=== PATIENT | male | born 1940 | race Caucasian/White ===

== ENCOUNTER 2017-06-13 19:49 | Inpatient (IN) | payer MEDICARE, SELFPAY ==
[2017-06-13 19:52] VITALS: BP 129/58; PULSE 94; PULSE 97; RESP 22; TEMP 36.8; O2SAT 88; BMI 33.7
--- NOTE | 2017-06-13 20:29 | EKG12_ITS ---
Test Reason : SOB Blood Pressure : / mmHG Vent. Rate : 092 BPM Atrial Rate : 094 BPM P-R Int : 000 ms QRS Dur : 108 ms QT Int : 384 ms P-R-T Axes : -11 -15 069 degrees QTc Int : 474 ms Atrial fibrillation Left ventricular hypertrophy with repolarization abnormality Abnormal ECG Confirmed by MIGUEL CEDENO, HILARY ([id number]), city editor CHEPE MEADE ([id number]) on 06/15/2017 1:18:55 PM Referred By: NADJA Confirmed By:HILARY RIVERA MD
--- NOTE | 2017-06-13 20:29 | RAD_ITS ---
STUDY: X-RAY CHEST REASON FOR EXAM: Male, 77 years old. Shortness of breath TECHNIQUE: Frontal and lateral views of the chest COMPARISON: 05/29/2017. FINDINGS: There are stable small bilateral pleural effusions, right greater than left. There are stable mild congestive changes. The heart is enlarged, but stable. The visualized osseous structures are within normal limits. RAD/Chest PA and Lateral IMPRESSION: Stable exam. Electronically Signed: Suraj Ross, at 22:00 EST Tel , Service support ,
[2017-06-13 20:52] VITALS: O2SAT 93
[2017-06-13 20:53] LABS: Absolute Lymphocyte Count 1.43 X10^3/ul (0.83-4.51); Absolute Neutrophil Count 2.9 X10^3/uL (2.0-7.7); Eosinophil# 0.01 X10^3/uL; Eosinophils% 0.2 % (0-5); Hematocrit 33.8 % (40-54); Hemoglobin 10.9 g/dl (13.0-16.5); Lymphocyte # 1.43 X10^3/ul (4.0); Mean Corp Hgb Conc 32.2 g/gl (32-36); Mean Corpuscular Hgb 35.3 pg (27.0-32.0); Mean Corpuscular Volume 109.4 fL (80-94); Mean Platelet Vol. 11.5 fl (6.2-12.0); Monocyte% 22.8 % (0-10); Neutrophil % 50.8 % (47-70); Platelet Count 160 K/mm3 (150-450); RBC Distribution Width CV 15.4 % (11.6-14.6); RBC Distribution Width SD 60.1 fl (35.1-43.9); Red Blood Count 3.09 M/mm3 (4.6-6.2); White Blood Count 5.7 K/mm3 (4.4-11.0)
[2017-06-13 20:55] LABS: POSITIVE COUNT NO; POSITIVE DIFFERENTIAL NO; POSITIVE MORPHOLOGY NO
[2017-06-13 21:18] VITALS: BP 132/70; PULSE 80; RESP 16; O2SAT 94
[2017-06-13 21:26] LABS: BNP,B-Type NATRIURETIC PEPTIDE 1596.5 pg/mL (0-100)
[2017-06-13 21:42] LABS: Anion Gap 12 (5-15); BUN 34 mg/dL (7-18); BUN/Creat Ratio 17.4 RATIO (10-20); Calcium,Total 8.6 mg/dL (8.5-10.1); Chloride 98 mmol/L (98-107); Creatinine, Serum 1.95 mg/dL (0.70-1.30); EST Glomerular Filtration Rate 36 mL/min (>60); Est Glom Filt Rate - Afr Amer 43 mL/min (>60); Estimated Creatinine Clearance 27.41 ml/min; Glucose 779 mg/dL (70-110); Potassium 4.4 mmol/L (3.5-5.1); Sodium Level 134 mmol/L (136-145)
--- NOTE | 2017-06-13 21:42 | ED.RN ---
dr varner aware of 779 blood glucose.
--- NOTE | 2017-06-13 21:55 | EKG12_ITS ---
Test Reason : SOB Blood Pressure : / mmHG Vent. Rate : 090 BPM Atrial Rate : 090 BPM P-R Int : 268 ms QRS Dur : 112 ms QT Int : 390 ms P-R-T Axes : 024 -15 074 degrees QTc Int : 477 ms Sinus rhythm with 1st degree A-V block Otherwise normal ECG Confirmed by MIGUEL CEDENO, HILARY ([id number]), senior editor CHEPE MEADE ([id number]) on 06/15/2017 1:19:12 PM Referred By: Confirmed By:HILARY RIVERA MD
[2017-06-13 22:13] VITALS: BP 139/75; PULSE 75; RESP 14; O2SAT 99
--- NOTE | 2017-06-13 22:20 | ED.VISSUMM ---
- ER Visit Summary Date of Service: 06/13/17 Chief Complaint: Shortness of breath History of Present Illness: The patient is a 77 M who presents with shortness of breath. It is worsened over the past 4 days. He does have a history of aortic stenosis and is actually scheduled for valvular surgery on June [address] Ramirez at [facility]. He states he did not think his Lasix was working so he quit taking it 4 days ago and noticed that he has been becoming increasingly short of breath since that time. He denies any chest pain. He does have a nonproductive cough. He denies vomiting diarrhea fevers or any other complaints. Physical Examination: Respiratory rate 22 pulse ox 88% on room air Patient is dyspneic speaking in short sentences bibasilar rales are noted. Heart is regular rate and rhythm Abdomen soft 1+ symmetric pitting lower extremity edema Alert and oriented Test Results: EKG shows sinus rhythm at a rate of 92. Chest x-ray shows stable bilateral pleural effusions. Laboratory studies notable for troponin of 0.151 which is near recent labs. Beta natruretic peptide 1596. Additionally glucose is 779 but without elevated anion gap. Emergency Department Course and Treatment: Patient was placed on oxygen with improvement of symptoms. He does appear to have a congestive heart failure exacerbation. He was given IV Lasix. Given the degree of his hyperglycemia and the fact I would not want to give him any further IV fluids for dilution he was started on an insulin infusion. Patient admitted to the hospitalist service Treatment Plan: [] Disposition: Admit Impression: CHF exacerbation Aortic stenosis Hyperglycemia This note was generated with Skytide dictation software. It may contain incorrect words, spelling, and punctuation that were not noted in review of the chart prior to signing ED Disposition - Plan for ED Patient: Disposition: Acute Care Hospital [facility] Chief Complaint: Shortness of Breath
--- NOTE | 2017-06-13 22:25 | ED.DCSUM_ITS ---
- ER Visit Summary Date of Service: 06/13/17 Chief Complaint: Shortness of breath History of Present Illness: The patient is a 77 M who presents with shortness of breath. It is worsened over the past 4 days. He does have a history of aortic stenosis and is actually scheduled for valvular surgery on June [address] Ramirez at [facility]. He states he did not think his Lasix was working so he quit taking it 4 days ago and noticed that he has been becoming increasingly short of breath since that time. He denies any chest pain. He does have a nonproductive cough. He denies vomiting diarrhea fevers or any other complaints. Physical Examination: Respiratory rate 22 pulse ox 88% on room air Patient is dyspneic speaking in short sentences bibasilar rales are noted. Heart is regular rate and rhythm Abdomen soft 1+ symmetric pitting lower extremity edema Alert and oriented Test Results: EKG shows sinus rhythm at a rate of 92. Chest x-ray shows stable bilateral pleural effusions. Laboratory studies notable for troponin of 0.151 which is near recent labs. Beta natruretic peptide 1596. Additionally glucose is 779 but without elevated anion gap. Emergency Department Course and Treatment: Patient was placed on oxygen with improvement of symptoms. He does appear to have a congestive heart failure exacerbation. He was given IV Lasix. Given the degree of his hyperglycemia and the fact I would not want to give him any further IV fluids for dilution he was started on an insulin infusion. Patient admitted to the hospitalist service Treatment Plan: [] Disposition: Admit Impression: CHF exacerbation Aortic stenosis Hyperglycemia This note was generated with RapidMiner dictation software. It may contain incorrect words, spelling, and punctuation that were not noted in review of the chart prior to signing ED Disposition - Plan for ED Patient: Disposition: Acute Care Hospital [facility] Chief Complaint: Shortness of Breath
[2017-06-13] MEDS: Furosemide 40 MG/4 ML Vial IV (22:34)
--- NOTE | 2017-06-13 22:46 | ED.RN ---
PCU ACUTE ON CHR HEART FAILURE W/ SEVERE LINO
--- NOTE | 2017-06-13 22:50 | HP.PCM_ITS ---
Problem List (1) Nonrheumatic aortic valve stenosis with insufficiency Status: Chronic (2) Hypertension Status: Chronic (3) Dyspnea on exertion Status: Chronic (4) Troponin level elevated Status: Resolved (5) Allergic rhinitis Status: Resolved (6) Acute on chronic combined systolic and diastolic heart failure Status: Acute (7) Type 2 diabetes mellitus with hyperglycemia Status: Chronic (8) CKD stage 3 due to type 2 diabetes mellitus Status: Chronic (9) Acute renal failure superimposed on stage 3 chronic kidney disease Status: Acute History of Present Illness Date of Admission: 06/13/17 Chief Complaint: Shortness of breath for 4-5 days The patient is a 77 year old M with multiple comorbidities with recent admission in May 2017 for acute on chronic heart failure with severe aortic stenosis, it is scheduled for valvular surgery on June [address] Young at [facility] came to ER with progressive worsening of shortness of breath or 4 -5 days. Patient has bilateral lower extremity edema. He quit taking his Lasix about 4 days ago as he thought it is not working. Denies any chest pain. No fever, nausea vomiting. In ER he was found to have tachypneic respiratory rate 22, pulse ox 88% on room air. Lasix 40 mg IV was given but it did not improve. Later on he got more tachypneic and short of breath and put on BiPAP. Subsequently, ABG was done which shows 7.34/40 7/108 at 50% FiO2 16/10. Chest x-ray shows bilateral pleural effusion, right more than left with mild congestive changes. One more dose of Lasix 40 mg IV ordered. Past Medical History Past Medical History (Chronic Problems): Chronic Problems (Last Reviewed 05/17/17 @ 15:28 by Trice Bowling) Type 2 diabetes mellitus with hyperglycemia (Chronic) 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) Cardiomyopathy in disease classified elsewhere (Chronic) Hypertension (Chronic) Dyspnea on exertion (Chronic) Allergies No Known Allergies Allergy (Verified 06/13/17 19:49) Home Medications: Ambulatory Orders Medication Instructions Recorded Metoprolol Tartrate [Lopressor 50 mg PO BID 07/02/14 (beta poornima)] Multivitamins,Therapeutic 1 tab PO DAILY 07/02/14 [Multivitamin] Aspirin [Aspirin, Baby] 81 mg PO DAILY@0800 tab.chew 05/06/17 amlodipine 2.5 mg tablet 5 mg PO BID tab 05/24/17 handicap nain #1 ea 06/01/17 Furosemide 40 mg PO DAILY 06/13/17 Surgical History: adenoidectomy, cholecystectomy, tonsillectomy Psychiatric History: No pertinent psych hx Smoking Status: Former smoker - *Family History Maternal Family History: Family History (Last Reviewed 05/17/17 @ 15:28 by Trice Bowling) Mother Hypertension History Items: Hypertension Paternal Family History: Family History (Last Reviewed 05/17/17 @ 15:28 by Trice Bowling) Mother Hypertension History Items: Hypertension Review of Systems Constitutional: Denies: Chills, Fever, Weight Change HEENT: Denies: Head Aches, Sinus Congestion, Sinus Drainage Cardiovascular: Reports: Edema. Denies: Chest Pain, Palpitations Respiratory: Reports: Shortness of breath at rest, Shortness of breath upon exertion. Denies: Cough, Sputum production Gastrointestinal: Denies: Abdominal Pain, Nausea, Vomiting Genitourinary: Denies: Dysuria Musculoskeletal: Denies: Joint Pain, Joint Tenderness Skin: Denies: Rash, Wounds Neurological: Denies: Numbness, Tingling, Focal weakness Psychiatric: Denies: Anxiety, Depression, Homicidal Ideations, Suicidal Ideations Hematologic/ Lymphatic: Denies: Easy Bruising, Easy Bleeding VTE Information - Inpt Only VTE Present on Admission: No VTE Mechan Device Prophylaxis: SCD's VTE Pharm Prophylaxis ordered?: Yes Patient Problems: Active and Suspected Problems (Last Reviewed 05/17/17 @ 15:28 by Trice Bowling) Acute on chronic combined systolic and diastolic heart failure (Acute) Acute renal failure superimposed on stage 3 chronic kidney disease (Acute) - Physical Exam General: Alert, Oriented x3, Cooperative HEENT: Atraumatic, PERRLA, EOMI, Normocephalic Oral: Dry Mucosa Neck: Supple, No JVD, Negative Carotid Bruits Lungs: Diminished - In both lung, right more than left, Rales, Rhonchi, Tachypneic, Using Accessory Muscles, - - On BiPAP at 50% FiO2 Cardiovascular: Regular rate, No murmurs Abdomen: Bowel Sounds Present, Soft, Non Tender, - - Mild distention present Extremities: Capillary Refill Less than 3 Seconds, Edema Skin: No rashes, No breakdown Musculoskeletal: No Tenderness to Palpation of Joints or Extremities, Arthritic Changes Neurological: Cranial nerves II-XII grossly intact Psych/Mental Status: Normal Affect, Appropriate Vital Signs Temp Pulse Resp BP Pulse Ox 98.2 F 75 14 139/75 H 99 06/13/17 19:52 06/13/17 22:13 06/13/17 22:13 06/13/17 22:13 06/13/17 22:13 Oxygen Flow Rate 3 Oxygen Delivery Method Room Air Weight: 196 lb 10.437 oz Body Mass Index (BMI) 33.7 Laboratory Tests Past 24 Hrs 06/13/17 06/13/17 06/13/17 20:40 20:40 20:40 WBC 5.7 RBC 3.09 L Hgb 10.9 L Hct 33.8 L MCV 109.4 H MCH 35.3 H MCHC 32.2 RDW 15.4 H RDW Differential 60.1 H Plt Count 160 MPV 11.5 Immature Gran % (Auto) 1.200 H Neut % (Auto) 50.8 Lymph % (Auto) 25.0 [place] % (Auto) 22.8 H Eos % (Auto) 0.2 Baso % (Auto) 0.0 Absolute Neuts (auto) 2.9 Absolute Lymphs (auto) 1.43 Total Counted Not Reportable Sodium 134 L Potassium 4.4 Chloride 98 Carbon Dioxide 24.0 Anion Gap 12 BUN 34 H Creatinine 1.95 H Estim Creat Clear Calc 27.41 Est GFR (MDRD) Af Amer 43 L Est GFR (MDRD) Non-Af 36 L BUN/Creatinine Ratio 17.4 Glucose 779 H* Calcium 8.6 Troponin I 0.151 H B-Natriuretic Peptide 1596.5 H Assessment/Plan Active and Suspected Problems (Last Reviewed 05/17/17 @ 15:28 by Trice Bowling) Acute on chronic combined systolic and diastolic heart failure (Acute) Acute renal failure superimposed on stage 3 chronic kidney disease (Acute) The patient is a 77 year old M with multiple comorbidities with recent admission in May 2017 for acute on chronic heart failure with severe aortic stenosis, it is scheduled for valvular surgery on June [address] Young at [facility] came to ER with progressive worsening of shortness of breath or 4 -5 days. Patient has bilateral lower extremity edema. He quit taking his Lasix about 4 days ago as he thought it is not working. Denies any chest pain. No fever, nausea vomiting. In ER he was found to have tachypneic respiratory rate 22, pulse ox 88% on room air. Lasix 40 mg IV was given but it did not improve. Later on he got more tachypneic and short of breath and put on BiPAP. Subsequently, ABG was done which shows 7.34/47/108 at 50% FiO2 16/10. Chest x-ray shows bilateral pleural effusion, right more than left with mild congestive changes. One more dose of Lasix 40 mg IV ordered. 1. Acute hypoxic respiratory failure acute on chronic combined systolic and diastolic heart failure: Patient is being admitted in the ICU for acute hypoxic respiratory failure secondary to heart failure. Patient is on Lasix 40 mg twice daily and if needed can change to Lasix low-dose 5 mg/h continuous infusion. Continue BiPAP support. Bronchodilator as needed for shortness of breath. 2. Acute on chronic combined heart failure due to severe aortic stenosis: During last admission from 05/02/2017 -05/06/2017, patient had 2D echo which showed EF 45-50% with a stage II diastolic dysfunction, moderate global hypokinesis of the left ventricle, 1+ MVI, RVSP unable to be measured, severe diffuse aortic valve thickening, severe restriction of the aortic valve, severe aortic stenosis. At that time patient was seen by Dr. Higgins and was referred for cardiac surgery for which she has appointment as mentioned above. Patient also had negative stress test which was followed by negative heart cath. EEG demonstrated severe aortic stenosis. Consult cardiology. 3. Diabetes mellitus type 2 with hypoglycemia: In ER blood sugar noted to be 566 And he started on insulin drip. Monitor Accu-Chek q. hourly until his blood sugar is less than 300 and then continue Accu-Chek before meals and at bedtime and cover with NovoLog sliding scale. Lantus 15 units subcu twice daily for discontinuation of insulin drip. he is not in DKA. Bicarb 24, anion gap 12. 4. Acute kidney injury on CKD stage III: Most probably due to the diuretic effect with history of diabetes, hypertension and heart failure. At present he needs Lasix. Nephrology consult. Monitor intake/output, electrolytes and kidney function. Other chronic comorbidities include hypertension, mild microcytic anemia of chronic disease: Home medication reconciliation done. Time spent more than 70 minutes. Laboratory Results 06/13/17 20:40: WBC 5.7, RBC 3.09 L, Hgb 10.9 L, Hct 33.8 L, MCV 109.4 H, MCH 35.3 H, MCHC 32.2, RDW 15.4 H, RDW Differential 60.1 H, Plt Count 160, MPV 11.5 , Immature Gran % (Auto) 1.200 H, Neut % (Auto) 50.8, Lymph % (Auto) 25.0, [place] % (Auto) 22.8 H, Eos % (Auto) 0.2, Baso % (Auto) 0.0, Absolute Neuts (auto) 2.9 , Absolute Lymphs (auto) 1.43, Total Counted Not Reportable 06/13/17 20:40: Sodium 134 L, Potassium 4.4, Chloride 98, Carbon Dioxide 24.0, Anion Gap 12, BUN 34 H, Creatinine 1.95 H, Estim Creat Clear Calc 27.41, Est GFR (MDRD) Af Amer 43 L, Est GFR (MDRD) Non-Af 36 L, BUN/Creatinine Ratio 17.4, Glucose 779 H*, Calcium 8.6, Troponin I 0.151 H 06/13/17 20:40: B-Natriuretic Peptide 1596.5 H 06/13/17 23:25: POC Glucose > 500 H* 06/13/17 23:48: Sodium 137, Potassium 3.8, Chloride 100, Carbon Dioxide 25.0, Anion Gap 12, BUN 35 H, Creatinine 2.08 H, Estim Creat Clear Calc 25.69, Est GFR (MDRD) Af Amer 40 L, Est GFR (MDRD) Non-Af 33 L, BUN/Creatinine Ratio 16.8, Glucose 566 H*, Calcium 8.9, Troponin I 0.179 H 06/13/17 23:49: Specimen Type ART, Sample Site R Radial, pH 7.34 L, Bicarbonate Actual 25.5, POC Total CO2 27, Base Excess 0, O2 Saturation 98, O2 % 50, ABG pCO2 47.4 H, ABG pO2 108 H, Jefe Test POS, Respiration Rate 12, O2 Delivery Device Bi / C PAP, EPAP 10, IPAP 16, Blood Gas Notified Whom ED , Blood Gas Notified Time 2343 Clinical Impression(s) from Imaging Studies Chest X-Ray 06/13/17 20:29 IMPRESSION: Stable exam. Electronically Signed: Suraj Ross, at 22:00 EST Tel , Service support , Chest X-Ray 06/13/17 23:33 IMPRESSION: Stable cardiomegaly. Worsening of right hilar prominence, possibly vascular. Consider further evaluation with CT. Pulmonary vascular congestion and small pleural effusions at the lung bases with adjacent atelectasis/consolidation, superimposed pneumonia cannot be excluded.
[2017-06-13 23:30] VITALS: PULSE 101; RESP 12; RESP 38; O2SAT 98
--- NOTE | 2017-06-13 23:30 | ED.RN ---
PT BECAME SOB AND DIAPHORETIC PRIOR TO TRANSPORT TO PCU. DR. SAEZ TO BEDSIDE. PT PLACED ON BIPAP PER RT.
[2017-06-13 23:31] LABS: Bedside Glucose > 500 mg/dL (70-110)
--- NOTE | 2017-06-13 23:33 | RAD_ITS ---
XR Chest 1 View INDICATION: dyspnea COMPARISON: Earlier the same day and multiple prior studies dating back to June 2015 TECHNIQUE: Frontal view of the chest FINDINGS: The heart size is markedly enlarged. The right hilar region is prominent, which is new compared to May 2017. This finding is likely vascular. Patchy air space opacities are present bilaterally. Small bilateral pleural effusions are present. RAD/Chest 1 View (Portable) IMPRESSION: Stable cardiomegaly. Worsening of right hilar prominence, possibly vascular. Consider further evaluation with CT. Pulmonary vascular congestion and small pleural effusions at the lung bases with adjacent atelectasis/consolidation, superimposed pneumonia cannot be excluded. at 0019 Reported and signed by: Roshni Franco MD Electronically Signed: Roshni Franco MD at 23:18 EST Tel , Service support ,
--- NOTE | 2017-06-13 23:33 | EKG12_ITS ---
Test Reason : CP Blood Pressure : / mmHG Vent. Rate : 104 BPM Atrial Rate : 104 BPM P-R Int : 238 ms QRS Dur : 104 ms QT Int : 354 ms P-R-T Axes : -24 -16 092 degrees QTc Int : 465 ms Sinus tachycardia with 1st degree A-V block with Premature ventricular complexes or Fusion complexes ST & T wave abnormality, consider lateral ischemia Abnormal ECG Confirmed by MIGUEL CEDENO, HILARY ([id number]), newspaper managing editor CHEPE MEADE ([id number]) on 06/15/2017 1:19:23 PM Referred By: NADJA Confirmed By:HILARY RIVERA MD
[2017-06-13 23:56] LABS: Allen Test POS; Base Excess 0 mmol/L (-2 to +2); Bicarbonate 25.5 mmol/L (22-26); Blood Gas Specimen Type ART; EPAP 10; FI02 50; IPAP 16; PO2 108 mmHG (75-100); RR 12; SITE R Radial; SO2 98 % (95-99); Time Given 2345; Total Carbon Dioxide 27 mmol/L; pCO2 47.4 mmHg (35-45); pH 7.34 (7.35-7.45)
[2017-06-14] VITALS (42 sets, daily range): BP systolic 98–138; BP diastolic 58–88; PULSE 76–107; RESP 12–35; TEMP 36.1–36.9; O2SAT 94–100; BMI 32.8
--- NOTE | 2017-06-14 | ED.RN ---
BREATHING IMPROVED AFTER BIPAP.
[2017-06-14] MEDS: Furosemide 40 MG/4 ML Vial IV ×4 (00:05→23:19)
[2017-06-14 00:18] LABS: Anion Gap 12 (5-15); BUN 35 mg/dL (7-18); BUN/Creat Ratio 16.8 RATIO (10-20); Calcium,Total 8.9 mg/dL (8.5-10.1); Chloride 100 mmol/L (98-107); Creatinine, Serum 2.08 mg/dL (0.70-1.30); EST Glomerular Filtration Rate 33 mL/min (>60); Est Glom Filt Rate - Afr Amer 40 mL/min (>60); Estimated Creatinine Clearance 25.69 ml/min; Glucose 566 mg/dL (70-110); Potassium 3.8 mmol/L (3.5-5.1); Sodium Level 137 mmol/L (136-145)
[2017-06-14 01:16] LABS: Bedside Glucose 345 mg/dL (70-110)
[2017-06-14] MEDS: Aspirin 81 MG TAB.CHEW PO (01:29)
[2017-06-14 01:31] LABS: Magnesium 2.3 mg/dL (1.8-2.4); Phosphorus 4.4 mg/dL (2.5-4.9)
[2017-06-14] MEDS: 0.9% NaCl Peripheral Flush Adult/Peds IV ×6 (01:31→23:19)
[2017-06-14 02:11] LABS: Bedside Glucose 202 mg/dL (70-110)
[2017-06-14] MEDS: ALPRAZolam 0.5 MG Tablet PO (02:18)
[2017-06-14 03:20] LABS: M R Staph aureus DNA By PCR Negative (Negative); Probe Check PASS; Specimen Processing Control PASS
[2017-06-14 04:42] LABS: Bedside Glucose 213 mg/dL (70-110)
[2017-06-14 06:17] LABS: BUN 36 mg/dL (7-18); Creatinine, Serum 1.83 mg/dL (0.70-1.30); Glucose 207 mg/dL (70-110)
[2017-06-14 06:18] LABS: Anion Gap 11 (5-15); BUN/Creat Ratio 19.7 RATIO (10-20); Calcium,Total 8.8 mg/dL (8.5-10.1); Chloride 101 mmol/L (98-107); EST Glomerular Filtration Rate 39 mL/min (>60); Est Glom Filt Rate - Afr Amer 47 mL/min (>60); Potassium 3.9 mmol/L (3.5-5.1); Sodium Level 139 mmol/L (136-145)
[2017-06-14 06:40] LABS: Magnesium 2.1 mg/dL (1.8-2.4); Phosphorus 4.7 mg/dL (2.5-4.9)
[2017-06-14 06:54] LABS: Absolute Lymphocyte Count 1.91 X10^3/ul (0.83-4.51); Absolute Neutrophil Count 3.7 X10^3/uL (2.0-7.7); Basophil# 0.01 X10^3/uL; Basophil% 0.1 % (0-1); Eosinophil# 0.01 X10^3/uL; Eosinophils% 0.1 % (0-5); Hematocrit 32.9 % (40-54); Hemoglobin 10.6 g/dl (13.0-16.5); Lymphocyte # 1.91 X10^3/ul (4.0); Lymphocyte % 25.5 % (19-41); Mean Corp Hgb Conc 32.2 g/gl (32-36); Mean Corpuscular Hgb 34.8 pg (27.0-32.0); Mean Corpuscular Volume 107.9 fL (80-94); Mean Platelet Vol. 11.3 fl (6.2-12.0); Monocyte# 1.84 X10^3/uL; Monocyte% 24.6 % (0-10); Neutrophil # 3.67 X10^3/uL (2.7-7.7); Platelet Count 151 K/mm3 (150-450); RBC Distribution Width CV 15.2 % (11.6-14.6); RBC Distribution Width SD 59.1 fl (35.1-43.9); Red Blood Count 3.05 M/mm3 (4.6-6.2); White Blood Count 7.5 K/mm3 (4.4-11.0)
[2017-06-14 06:56] LABS: Differential Indicated SCAN CRITERIA MET; POSITIVE COUNT NO; POSITIVE DIFFERENTIAL YES; POSITIVE MORPHOLOGY NO
[2017-06-14 07:05] LABS: Bedside Glucose 226 mg/dL (70-110)
[2017-06-14 07:11] LABS: Differential Comment SCANNED
--- NOTE | 2017-06-14 08:36 | PCM.PN.HOSP ---
Patient Problems: Active and Suspected Problems (Last Reviewed 05/17/17 @ 15:28 by Trice Bowling) Acute on chronic combined systolic and diastolic heart failure (Acute) Acute renal failure superimposed on stage 3 chronic kidney disease (Acute) Subjective: Events reviewed. Tolerating the BiPAP. Vitals/I&O's: Vital Signs Temp Pulse Resp BP Pulse Ox 36.7 C 85 28 H 118/72 98 06/14/17 03:59 06/14/17 08:27 06/14/17 08:27 06/14/17 08:00 06/14/17 08:27 Oxygen Delivery Method Bi-pap Weight: 87.3 kg Body Mass Index (BMI) 32.8 Finger Stick Blood Glucose 202 Intake and Output for Last 24 Hours 06/12/17 06/13/17 06/14/17 23:59 23:59 23:59 Intake Total 216 / 216 Output Total 1000 / 1000 Balance -784 / -784 General: Alert, Cooperative, No apparent distress HEENT: Atraumatic, Normocephalic Neck: No Nodes, Thyroid Normal Size and Texture Lungs: Diminished, - - Coarse breath sounds Cardiovascular: Regular rate, Regular Rhythm, Normal S1, Normal S2 Abdomen: Bowel Sounds Present, Soft, Non Tender, Non-Distended, Obese Extremities: No Calf Tenderness, Edema Psych/Mental Status: Normal Affect, Appropriate Laboratory Results 06/13/17 23:25: POC Glucose > 500 H* 06/13/17 23:48: Sodium 137, Potassium 3.8, Chloride 100, Carbon Dioxide 25.0, Anion Gap 12, BUN 35 H, Creatinine 2.08 H, Estim Creat Clear Calc 25.69, Est GFR (MDRD) Af Amer 40 L, Est GFR (MDRD) Non-Af 33 L, BUN/Creatinine Ratio 16.8, Glucose 566 H*, Calcium 8.9, Troponin I 0.179 H 06/13/17 23:48: Phosphorus 4.4, Magnesium 2.3 06/13/17 23:49: Specimen Type ART, Sample Site R Radial, pH 7.34 L, Bicarbonate Actual 25.5, POC Total CO2 27, Base Excess 0, O2 Saturation 98, O2 % 50, ABG pCO2 47.4 H, ABG pO2 108 H, Jefe Test POS, Respiration Rate 12, O2 Delivery Device Bi / C PAP, EPAP 10, IPAP 16, Blood Gas Notified Whom ED , Blood Gas Notified Time 9283 06/14/17 01:00: POC Glucose 345 H 06/14/17 01:40: MRSA (PCR) Negative 06/14/17 02:03: POC Glucose 202 H 06/14/17 03:58: POC Glucose 213 H 06/14/17 05:00: WBC 7.5, RBC 3.05 L, Hgb 10.6 L, Hct 32.9 L, MCV 107.9 H, MCH 34.8 H, MCHC 32.2, RDW 15.2 H, RDW Differential 59.1 H, Plt Count 151, MPV 11.3, Immature Gran % (Auto) 0.700, Neut % (Auto) 49.0, Lymph % (Auto) 25.5, [place] % (Auto) 24.6 H, Eos % (Auto) 0.1, Baso % (Auto) 0.1, Absolute Neuts (auto) 3.7, Absolute Lymphs (auto) 1.91, Total Counted Not Reportable, Differential Comment SCANNED 06/14/17 05:00: Sodium 139, Potassium 3.9, Chloride 101, Carbon Dioxide 27.0, Anion Gap 11, BUN 36 H, Creatinine 1.83 H, Estim Creat Clear Calc 29.20, Est GFR (MDRD) Af Amer 47 L, Est GFR (MDRD) Non-Af 39 L, BUN/Creatinine Ratio 19.7, Glucose 207 H, Calcium 8.8 06/14/17 05:00: Hemoglobin A1c Pending 06/14/17 05:00: Phosphorus 4.7, Magnesium 2.1 06/14/17 06:58: POC Glucose 226 H Chest x-ray personally reviewed and showed pulmonary edema with some effusions in the costophrenic angles. Current Medications Alprazolam (Xanax) 0.5 mg PO TID PRN PRN PRN Reason: ANXIETY Last Admin: 06/14/17 02:18 Dose: 0.5 mg Aspirin (Aspirin, Baby) 81 mg PO DAILY@0800 ZOHREH Last Admin: 06/14/17 01:29 Dose: 81 mg Dextrose (D50w Syringe) 0 gm IV X1 PRN; Protocol PRN Reason: Hypoglycemia Dextrose (D50w Syringe) 0 gm IV X1 PRN; Protocol PRN Reason: Hypoglycemia Glucagon () 1 mg IM .X1 PRN PRN Reason: Hypoglycemia Sodium Chloride () 250 mls @ 15 mls/hr IV .[id number] PRN PRN Reason: SALINE FLUSH Insulin Aspart (Novolog Flexpen (Bkc)) 0 units SC Q6 ZOHREH PRN Reason: Protocol Last Admin: 06/14/17 08:31 Dose: 4 u Insulin Detemir (Levemir (Bkc)) 15 units SC BREAKFAST ZOHREH Insulin Detemir (Levemir (Bkc)) 15 units SC QHS ZOHREH Last Admin: 06/14/17 02:14 Dose: 15 units Metoprolol Tartrate (Lopressor (Beta Severo)) 50 mg PO BID ZOHREH Morphine Sulfate (Morphine) 2 mg IV Q4H PRN PRN PRN Reason: SEVERE PAIN (6-1010) Last Admin: 06/14/17 01:28 Dose: 2 mg Multivitamins (Multivitamin) 1 tablet PO DAILYCM [facility] Nutritional Formula (Lactose Free) (Glucerna Shake) 120 ml PO 4X/DAY ZOHREH Sodium Chloride () 5 - 30 ml IV UD PRN PRN Reason: SALINE FLUSH Last Admin: 06/14/17 05:37 Dose: 10 ml Assessment/Plan Active and Suspected Problems (Last Reviewed 05/17/17 @ 15:28 by Trice Bowling) Acute on chronic combined systolic and diastolic heart failure (Acute) Acute renal failure superimposed on stage 3 chronic kidney disease (Acute) 1. Acute hypoxic and hypercapnic respiratory failure Secondary to acute exacerbation of with reduced ejection fraction with an EF of 45-50% on echocardiogram from 05/03/2017. Wean BiPAP as tolerated. Critical care medicine following. 2. Acute heart failure with reduced ejection fraction Ejection fraction of 45-50% from echocardiogram from 05/03/2017. Also complicated by a severe aortic stenosis Patient had stopped taking his Lasix because he did feel that it was helping him 4 days prior to this admission. May not been the ultimate cause of his CHF exacerbation this time but certainly did not help. Cardiology consult Patient received 2 doses of Lasix, 40 mg each. Was on metoprolol tartrate as outpatient and that has been continued. Not on an DIMAS inhibitor nor angiotensin receptor severo given his acute on chronic kidney disease. 3. Severe aortic stenosis Complicating care in regards to the development of the CHF. Cardiology on consultation Patient was to follow-up with Dr. Umanzor, at [facility] for evaluation for valve replacement. 4. Acute kidney injury Creatinine was 2.08 on admission and it is improved today to 1.83. Baseline creatinine is 1.55. Patient appears to have chronic kidney disease stage IV. Nephrology on consultation. I would suspect this may relate with hypoperfusion given the patient's CHF but will wait further input from the specialist. Will hold off on additional Lasix until given the okay by the specialist at this time. 5. Diabetes mellitus type 2, uncontrolled. Patient was not in diabetic ketoacidosis nor in hyperosmolar nonketotic state. Started on Levemir, currently n.p.o. but once able to take diet and we can put him on prandial NovoLog plus sliding scale. 6. Anxiety Likely precipitated by the patient's respiratory failure. Given the patient's tenuous respiratory status and actually DC the Xanax. Apparently helped him with his anxiety last night but I be concerned for sedation and possible paradoxical delirium with it, given patient's age. 7. DVT prophylaxis with subcu heparin. Code Visit Inpatient E&M: 32492 Subs Hosp L2
--- NOTE | 2017-06-14 08:49 | PN_ITS ---
Patient Problems: Active and Suspected Problems (Last Reviewed 05/17/17 @ 15:28 by Trice Bowling) Acute on chronic combined systolic and diastolic heart failure (Acute) Acute renal failure superimposed on stage 3 chronic kidney disease (Acute) Subjective: Events reviewed. Tolerating the BiPAP. Vitals/I&O's: Vital Signs Temp Pulse Resp BP Pulse Ox 36.7 C 85 28 H 118/72 98 06/14/17 03:59 06/14/17 08:27 06/14/17 08:27 06/14/17 08:00 06/14/17 08:27 Oxygen Delivery Method Bi-pap Weight: 87.3 kg Body Mass Index (BMI) 32.8 Finger Stick Blood Glucose 202 Intake and Output for Last 24 Hours 06/12/17 06/13/17 06/14/17 23:59 23:59 23:59 Intake Total 216 / 216 Output Total 1000 / 1000 Balance -784 / -784 General: Alert, Cooperative, No apparent distress HEENT: Atraumatic, Normocephalic Neck: No Nodes, Thyroid Normal Size and Texture Lungs: Diminished, - - Coarse breath sounds Cardiovascular: Regular rate, Regular Rhythm, Normal S1, Normal S2 Abdomen: Bowel Sounds Present, Soft, Non Tender, Non-Distended, Obese Extremities: No Calf Tenderness, Edema Psych/Mental Status: Normal Affect, Appropriate Laboratory Results 06/13/17 23:25: POC Glucose > 500 H* 06/13/17 23:48: Sodium 137, Potassium 3.8, Chloride 100, Carbon Dioxide 25.0, Anion Gap 12, BUN 35 H, Creatinine 2.08 H, Estim Creat Clear Calc 25.69, Est GFR (MDRD) Af Amer 40 L, Est GFR (MDRD) Non-Af 33 L, BUN/Creatinine Ratio 16.8, Glucose 566 H*, Calcium 8.9, Troponin I 0.179 H 06/13/17 23:48: Phosphorus 4.4, Magnesium 2.3 06/13/17 23:49: Specimen Type ART, Sample Site R Radial, pH 7.34 L, Bicarbonate Actual 25.5, POC Total CO2 27, Base Excess 0, O2 Saturation 98, O2 % 50, ABG pCO2 47.4 H, ABG pO2 108 H, Jefe Test POS, Respiration Rate 12, O2 Delivery Device Bi / C PAP, EPAP 10, IPAP 16, Blood Gas Notified Whom ED , Blood Gas Notified Time 0125 06/14/17 01:00: POC Glucose 345 H 06/14/17 01:40: MRSA (PCR) Negative 06/14/17 02:03: POC Glucose 202 H 06/14/17 03:58: POC Glucose 213 H 06/14/17 05:00: WBC 7.5, RBC 3.05 L, Hgb 10.6 L, Hct 32.9 L, MCV 107.9 H, MCH 34.8 H, MCHC 32.2, RDW 15.2 H, RDW Differential 59.1 H, Plt Count 151, MPV 11.3 , Immature Gran % (Auto) 0.700, Neut % (Auto) 49.0, Lymph % (Auto) 25.5, [place] % (Auto) 24.6 H, Eos % (Auto) 0.1, Baso % (Auto) 0.1, Absolute Neuts (auto) 3.7, Absolute Lymphs (auto) 1.91, Total Counted Not Reportable, Differential Comment SCANNED 06/14/17 05:00: Sodium 139, Potassium 3.9, Chloride 101, Carbon Dioxide 27.0, Anion Gap 11, BUN 36 H, Creatinine 1.83 H, Estim Creat Clear Calc 29.20, Est GFR (MDRD) Af Amer 47 L, Est GFR (MDRD) Non-Af 39 L, BUN/Creatinine Ratio 19.7, Glucose 207 H, Calcium 8.8 06/14/17 05:00: Hemoglobin A1c Pending 06/14/17 05:00: Phosphorus 4.7, Magnesium 2.1 06/14/17 06:58: POC Glucose 226 H Chest x-ray personally reviewed and showed pulmonary edema with some effusions in the costophrenic angles. Current Medications Alprazolam (Xanax) 0.5 mg PO TID PRN PRN PRN Reason: ANXIETY Last Admin: 06/14/17 02:18 Dose: 0.5 mg Aspirin (Aspirin, Baby) 81 mg PO DAILY@0800 ZOHREH Last Admin: 06/14/17 01:29 Dose: 81 mg Dextrose (D50w Syringe) 0 gm IV X1 PRN; Protocol PRN Reason: Hypoglycemia Dextrose (D50w Syringe) 0 gm IV X1 PRN; Protocol PRN Reason: Hypoglycemia Glucagon () 1 mg IM .X1 PRN PRN Reason: Hypoglycemia Sodium Chloride () 250 mls @ 15 mls/hr IV .[id number] PRN PRN Reason: SALINE FLUSH Insulin Aspart (Novolog Flexpen (Bkc)) 0 units SC Q6 ZOHREH PRN Reason: Protocol Last Admin: 06/14/17 08:31 Dose: 4 u Insulin Detemir (Levemir (Bkc)) 15 units SC BREAKFAST ZOHREH Insulin Detemir (Levemir (Bkc)) 15 units SC QHS ZOHREH Last Admin: 06/14/17 02:14 Dose: 15 units Metoprolol Tartrate (Lopressor (Beta Severo)) 50 mg PO BID ZOHREH Morphine Sulfate (Morphine) 2 mg IV Q4H PRN PRN PRN Reason: SEVERE PAIN (6-1010) Last Admin: 06/14/17 01:28 Dose: 2 mg Multivitamins (Multivitamin) 1 tablet PO DAILYCM [facility] Nutritional Formula (Lactose Free) (Glucerna Shake) 120 ml PO 4X/DAY ZOHREH Sodium Chloride () 5 - 30 ml IV UD PRN PRN Reason: SALINE FLUSH Last Admin: 06/14/17 05:37 Dose: 10 ml Assessment/Plan Active and Suspected Problems (Last Reviewed 05/17/17 @ 15:28 by Trice Bowling) Acute on chronic combined systolic and diastolic heart failure (Acute) Acute renal failure superimposed on stage 3 chronic kidney disease (Acute) 1. Acute hypoxic and hypercapnic respiratory failure Secondary to acute exacerbation of with reduced ejection fraction with an EF of 45-50% on echocardiogram from 05/03/2017. Wean BiPAP as tolerated. Critical care medicine following. 2. Acute heart failure with reduced ejection fraction Ejection fraction of 45-50% from echocardiogram from 05/03/2017. Also complicated by a severe aortic stenosis Patient had stopped taking his Lasix because he did feel that it was helping him 4 days prior to this admission. May not been the ultimate cause of his CHF exacerbation this time but certainly did not help. Cardiology consult Patient received 2 doses of Lasix, 40 mg each. Was on metoprolol tartrate as outpatient and that has been continued. Not on an DIMAS inhibitor nor angiotensin receptor severo given his acute on chronic kidney disease. 3. Severe aortic stenosis Complicating care in regards to the development of the CHF. Cardiology on consultation Patient was to follow-up with Dr. Umanzor, at [facility] for evaluation for valve replacement. 4. Acute kidney injury Creatinine was 2.08 on admission and it is improved today to 1.83. Baseline creatinine is 1.55. Patient appears to have chronic kidney disease stage IV. Nephrology on consultation. I would suspect this may relate with hypoperfusion given the patient's CHF but will wait further input from the specialist. Will hold off on additional Lasix until given the okay by the specialist at this time. 5. Diabetes mellitus type 2, uncontrolled. Patient was not in diabetic ketoacidosis nor in hyperosmolar nonketotic state. Started on Levemir, currently n.p.o. but once able to take diet and we can put him on prandial NovoLog plus sliding scale. 6. Anxiety Likely precipitated by the patient's respiratory failure. Given the patient's tenuous respiratory status and actually DC the Xanax. Apparently helped him with his anxiety last night but I be concerned for sedation and possible paradoxical delirium with it, given patient's age. 7. DVT prophylaxis with subcu heparin. Code Visit Inpatient E&M: 56709 Subs Hosp L2
--- NOTE | 2017-06-14 09:44 | PCM.CON.CC ---
Problem List (1) Acute on chronic combined systolic and diastolic heart failure Status: Acute (2) Type 2 diabetes mellitus with hyperglycemia Status: Chronic Qualifiers: Diabetes mellitus retirement insulin use: without adjunct faculty for medical terminology use Qualified Code(s): E11.65 - Type 2 diabetes mellitus with hyperglycemia (3) CKD stage 3 due to type 2 diabetes mellitus Status: Chronic (4) Acute renal failure superimposed on stage 3 chronic kidney disease Status: Acute (5) Cough in adult Status: Acute (6) Cardiomyopathy in disease classified elsewhere Status: Chronic (7) Nonrheumatic aortic valve stenosis with insufficiency Status: Acute (8) Hypertension Status: Chronic Reason for Consult Date of Consultation: 06/14/17 Reason for Consultation: Acute hypoxic respiratory failure History of Present Illness: The patient is a 77 year old M, with past medical history listed below, who presented to [facility] on 06/13/2017 secondary to increasing shortness of breath. Patient had been recently hospitalized in May with previous similar complaints. At that time, patient was noted to have severe aortic stenosis and is actually scheduled for valvular surgery on June 26 at [facility]. Patient reports that approximately 4-5 days ago he had quit using his Lasix therapy, because he feels like it was not working. Patient denied any complications of therapy limiting its use. Patient denied any fever, chills, nausea, vomiting or chest pain. In the emergency room, patient was noted to be hypoxic at 88% on room air. Patient was given 40 mg of IV Lasix, but did not improve. Patient was then dispositioned to the PCU. On the way to the PCU, patient became abruptly hypoxic and tachypneic. Patient was taken back to the emergency room and placed on BiPAP therapy. An ABG at that time did show significant increase in AA gradient. Chest x-ray shows bilateral pleural effusions. Patient was then transferred to the intensive care unit for further monitoring. Since being in the intensive care unit, patient has been significantly anxious. Patient was given morphine and Xanax overnight with good response. Patient currently is compliant with BiPAP therapy and denies any dyspnea. Patient does not report any chest pain, abdominal pain, nausea or vomiting. Nursing reports patient has had significant difficulty with any BiPAP breaks to this point, so a p.o. diet has not been attempted. Past Medical History Past Medical History (Chronic Problems): Chronic Problems (Last Reviewed 05/17/17 @ 15:28 by Trice Bowling) Type 2 diabetes mellitus with hyperglycemia (Chronic) 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) Cardiomyopathy in disease classified elsewhere (Chronic) Hypertension (Chronic) Dyspnea on exertion (Chronic) Allergies No Known Allergies Allergy (Verified 06/13/17 19:49) Home Medications: Ambulatory Orders Medication Instructions Recorded Metoprolol Tartrate [Lopressor 50 mg PO BID 07/02/14 (beta poornima)] Multivitamins,Therapeutic 1 tab PO DAILY 07/02/14 [Multivitamin] Aspirin [Aspirin, Baby] 81 mg PO DAILY@0800 tab.chew 05/06/17 amlodipine 2.5 mg tablet 5 mg PO BID tab 05/24/17 handicap placard #1 ea 06/01/17 Furosemide 40 mg PO DAILY 06/13/17 Surgical History: adenoidectomy, cholecystectomy, tonsillectomy Psychiatric History: No pertinent psych hx Smoking Status: Former smoker - *Family History Maternal Family History: Family History (Last Reviewed 05/17/17 @ 15:28 by Trice Bowling) Mother Hypertension History Items: Hypertension Paternal Family History: Family History (Last Reviewed 05/17/17 @ 15:28 by Trice Bowling) Mother Hypertension History Items: Hypertension Review of Systems Comment: See HPI, otherwise negative ?10 systems Patient Problems: Active and Suspected Problems (Last Reviewed 05/17/17 @ 15:28 by Trice Bowling) Acute on chronic combined systolic and diastolic heart failure (Acute) Acute renal failure superimposed on stage 3 chronic kidney disease (Acute) Objective: All imaging was personally reviewed. Chest x-ray does show bilateral infiltrates with prominent right hilum. - Physical Exam General: - - RASS -2. Good BiPAP synchrony noted. Obese. HEENT: Atraumatic, PERRLA, EOMI, Normocephalic, - - Light scleral injection without icterus Oral: Moist Mucosa, No Gingival or Mucosal Lesions/ Ulcerations Neck: Supple, No Nodes, Trachea Midline, JVD, Right Lungs: No wheeze, Diminished, Rales, - - Symmetric expansion. No dullness to percussion. Cardiovascular: Regular rate, Regular Rhythm, Normal S1, Normal S2, Murmur - Grade 3 out of 6 systolic ejection murmur at the right sternal border, No rub noted, No Gallop Abdomen: Bowel Sounds Present, Soft, Non Tender, Distended - Slightly, Obese Extremities: No clubbing, No cyanosis, Capillary Refill Less than 3 Seconds, Edema - 2+ Skin: No rashes, No breakdown Musculoskeletal: No Tenderness to Palpation of Joints or Extremities Lymphatic: No Cervical, Supraclavicular, or Inguinal Adenopathy Neurological: Cranial nerves II-XII grossly intact, Neuro grossly intact, Motor Exam 5/5 strength throughout Psych/Mental Status: Appropriate, Flat Affect Vital Signs Temp Pulse Resp BP Pulse Ox 36.7 C 85 28 H 118/72 98 06/14/17 03:59 06/14/17 08:27 06/14/17 08:27 06/14/17 08:00 06/14/17 08:27 Oxygen Delivery Method Bi-pap Weight: 87.3 kg Body Mass Index (BMI) 32.8 Finger Stick Blood Glucose 202 Intake and Output for Last 24 Hours 06/12/17 06/13/17 06/14/17 23:59 23:59 23:59 Intake Total 216 / 216 Output Total 1000 / 1000 Balance -784 / -784 Laboratory Tests Past 24 Hrs 06/13/17 06/13/17 06/13/17 23:48 23:48 23:49 WBC RBC Hgb Hct MCV MCH MCHC RDW RDW Differential Plt Count MPV Immature Gran % (Auto) Neut % (Auto) Lymph % (Auto) [place] % (Auto) Eos % (Auto) Baso % (Auto) Absolute Neuts (auto) Absolute Lymphs (auto) Total Counted Differential Comment Specimen Type ART Sample Site R Radial pH 7.34 L Bicarbonate Actual 25.5 POC Total CO2 27 Base Excess 0 O2 Saturation 98 O2 % 50 ABG pCO2 47.4 H ABG pO2 108 H Jefe Test POS Respiration Rate 12 O2 Delivery Device Bi / C PAP EPAP 10 IPAP 16 Blood Gas Notified Whom ED Blood Gas Notified Time 2345 Sodium 137 Potassium 3.8 Chloride 100 Carbon Dioxide 25.0 Anion Gap 12 BUN 35 H Creatinine 2.08 H Estim Creat Clear Calc 25.69 Est GFR (MDRD) Af Amer 40 L Est GFR (MDRD) Non-Af 33 L BUN/Creatinine Ratio 16.8 Glucose 566 H* Hemoglobin A1c Calcium 8.9 Phosphorus 4.4 Magnesium 2.3 Troponin I 0.179 H MRSA (PCR) 06/14/17 06/14/17 06/14/17 01:40 05:00 05:00 WBC 7.5 RBC 3.05 L Hgb 10.6 L Hct 32.9 L MCV 107.9 H MCH 34.8 H MCHC 32.2 RDW 15.2 H RDW Differential 59.1 H Plt Count 151 MPV 11.3 Immature Gran % (Auto) 0.700 Neut % (Auto) 49.0 Lymph % (Auto) 25.5 [place] % (Auto) 24.6 H Eos % (Auto) 0.1 Baso % (Auto) 0.1 Absolute Neuts (auto) 3.7 Absolute Lymphs (auto) 1.91 Total Counted Not Reportable Differential Comment SCANNED Specimen Type Sample Site pH Bicarbonate Actual POC Total CO2 Base Excess O2 Saturation O2 % ABG pCO2 ABG pO2 Jefe Test Respiration Rate O2 Delivery Device EPAP IPAP Blood Gas Notified Whom Blood Gas Notified Time Sodium 139 Potassium 3.9 Chloride 101 Carbon Dioxide 27.0 Anion Gap 11 BUN 36 H Creatinine 1.83 H Estim Creat Clear Calc 29.20 Est GFR (MDRD) Af Amer 47 L Est GFR (MDRD) Non-Af 39 L BUN/Creatinine Ratio 19.7 Glucose 207 H Hemoglobin A1c Calcium 8.8 Phosphorus Magnesium Troponin I MRSA (PCR) Negative 06/14/17 06/14/17 05:00 05:00 WBC RBC Hgb Hct MCV MCH MCHC RDW RDW Differential Plt Count MPV Immature Gran % (Auto) Neut % (Auto) Lymph % (Auto) [place] % (Auto) Eos % (Auto) Baso % (Auto) Absolute Neuts (auto) Absolute Lymphs (auto) Total Counted Differential Comment Specimen Type Sample Site pH Bicarbonate Actual POC Total CO2 Base Excess O2 Saturation O2 % ABG pCO2 ABG pO2 Jefe Test Respiration Rate O2 Delivery Device EPAP IPAP Blood Gas Notified Whom Blood Gas Notified Time Sodium Potassium Chloride Carbon Dioxide Anion Gap BUN Creatinine Estim Creat Clear Calc Est GFR (MDRD) Af Amer Est GFR (MDRD) Non-Af BUN/Creatinine Ratio Glucose Hemoglobin A1c 9.0 H Calcium Phosphorus 4.7 Magnesium 2.1 Troponin I MRSA (PCR) POC Glucose 06/14/17 06/14/17 06/14/17 06:58 03:58 02:03 POC Glucose 226 H 213 H 202 H 06/14/17 06/13/17 01:00 23:25 POC Glucose 345 H > 500 H* Clinical Impression(s) from Imaging Studies Chest X-Ray 06/13/17 20:29 IMPRESSION: Stable exam. Electronically Signed: Suraj Fernandezeloisaana, at 22:00 EST Tel , Service support , Chest X-Ray 06/13/17 23:33 IMPRESSION: Stable cardiomegaly. Worsening of right hilar prominence, possibly vascular. Consider further evaluation with CT. Pulmonary vascular congestion and small pleural effusions at the lung bases with adjacent atelectasis/consolidation, superimposed pneumonia cannot be excluded. at 0019 Reported and signed by: Roshni Franco MD Electronically Signed: Roshni Franco MD at 23:18 EST Tel , Service support , Assessment/Plan Active and Suspected Problems (Last Reviewed 05/17/17 @ 15:28 by Trice Bowling) Acute on chronic combined systolic and diastolic heart failure (Acute) Acute renal failure superimposed on stage 3 chronic kidney disease (Acute) RECOMMENDATIONS: 1. BiPAP breaks as tolerated 2. Schedule diuresis 3. Electrolyte repletion as indicated 4. Monitor for ectopy with telemetry 5. Hold amlodipine IMPRESSIONS: 1. Acute hypoxic respiratory failure secondary to acute on chronic diastolic congestive heart failure Patient with noncompliance of Lasix therapy for the last 4-5 days leading to volume overload. This is complicated by patient's severe aortic stenosis with a last known valve area of 0.7 cm?. Patient to have corrective surgery later this month. Will continue with active diuresis. Electrolyte repletion as indicated. Monitor patient for ectopy with telemetry. Patient does not have a history of COPD that we are aware of, so would avoid any bronchodilators or steroids unless patient decompensates. Patient is to have definitive surgical intervention later this month at [facility]. No further workup is likely indicated at this time. 2. Acute on chronic kidney disease stage IV Likely secondary to decreased perfusion secondary to volume overload with loss of starling forces. Continue with diuresis. Electrolyte repletion as indicated. 3. Diabetes mellitus type 2 uncontrolled Patient was severely elevated glucose on presentation and does have an elevated hemoglobin A1c. Patient has been educated on a diabetic diet in the past, but initiation of insulin may be necessary. 4. Anxiety Agree with discontinuation of Xanax as this can lead to delirium. Haldol may be a better choice, but EKGs will need to be followed for QT interval. TIME: 33 minutes critical care time spent addressing patient's acute hypoxic respiratory failure, acute on chronic kidney disease, diabetes mellitus, review of all data and collaboration with care team Code Visit 9xxxx: [id number] Critical care first hour
--- NOTE | 2017-06-14 09:52 | CON.PCM_ITS ---
Problem List (1) Acute on chronic combined systolic and diastolic heart failure Status: Acute (2) Type 2 diabetes mellitus with hyperglycemia Status: Chronic Qualifiers: Diabetes mellitus senior care insulin use: without medical terminologist use Qualified Code(s): E11.65 - Type 2 diabetes mellitus with hyperglycemia (3) CKD stage 3 due to type 2 diabetes mellitus Status: Chronic (4) Acute renal failure superimposed on stage 3 chronic kidney disease Status: Acute (5) Cough in adult Status: Acute (6) Cardiomyopathy in disease classified elsewhere Status: Chronic (7) Nonrheumatic aortic valve stenosis with insufficiency Status: Acute (8) Hypertension Status: Chronic Reason for Consult Date of Consultation: 06/14/17 Reason for Consultation: Acute hypoxic respiratory failure History of Present Illness: The patient is a 77 year old M, with past medical history listed below, who presented to [facility] on 06/13/2017 secondary to increasing shortness of breath. Patient had been recently hospitalized in May with previous similar complaints. At that time, patient was noted to have severe aortic stenosis and is actually scheduled for valvular surgery on June 26 at [facility]. Patient reports that approximately 4-5 days ago he had quit using his Lasix therapy, because he feels like it was not working. Patient denied any complications of therapy limiting its use. Patient denied any fever, chills, nausea, vomiting or chest pain. In the emergency room, patient was noted to be hypoxic at 88% on room air. Patient was given 40 mg of IV Lasix, but did not improve. Patient was then dispositioned to the PCU. On the way to the PCU, patient became abruptly hypoxic and tachypneic. Patient was taken back to the emergency room and placed on BiPAP therapy. An ABG at that time did show significant increase in AA gradient. Chest x-ray shows bilateral pleural effusions. Patient was then transferred to the intensive care unit for further monitoring. Since being in the intensive care unit, patient has been significantly anxious. Patient was given morphine and Xanax overnight with good response. Patient currently is compliant with BiPAP therapy and denies any dyspnea. Patient does not report any chest pain, abdominal pain, nausea or vomiting. Nursing reports patient has had significant difficulty with any BiPAP breaks to this point, so a p.o. diet has not been attempted. Past Medical History Past Medical History (Chronic Problems): Chronic Problems (Last Reviewed 05/17/17 @ 15:28 by Trice Bowling) Type 2 diabetes mellitus with hyperglycemia (Chronic) 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) Cardiomyopathy in disease classified elsewhere (Chronic) Hypertension (Chronic) Dyspnea on exertion (Chronic) Allergies No Known Allergies Allergy (Verified 06/13/17 19:49) Home Medications: Ambulatory Orders Medication Instructions Recorded Metoprolol Tartrate [Lopressor 50 mg PO BID 07/02/14 (beta poornima)] Multivitamins,Therapeutic 1 tab PO DAILY 07/02/14 [Multivitamin] Aspirin [Aspirin, Baby] 81 mg PO DAILY@0800 tab.chew 05/06/17 amlodipine 2.5 mg tablet 5 mg PO BID tab 05/24/17 handicap placard #1 ea 06/01/17 Furosemide 40 mg PO DAILY 06/13/17 Surgical History: adenoidectomy, cholecystectomy, tonsillectomy Psychiatric History: No pertinent psych hx Smoking Status: Former smoker - *Family History Maternal Family History: Family History (Last Reviewed 05/17/17 @ 15:28 by Trice Bowling) Mother Hypertension History Items: Hypertension Paternal Family History: Family History (Last Reviewed 05/17/17 @ 15:28 by Trice Bowling) Mother Hypertension History Items: Hypertension Review of Systems Comment: See HPI, otherwise negative ?10 systems Patient Problems: Active and Suspected Problems (Last Reviewed 05/17/17 @ 15:28 by Trice Bowling) Acute on chronic combined systolic and diastolic heart failure (Acute) Acute renal failure superimposed on stage 3 chronic kidney disease (Acute) Objective: All imaging was personally reviewed. Chest x-ray does show bilateral infiltrates with prominent right hilum. - Physical Exam General: - - RASS -2. Good BiPAP synchrony noted. Obese. HEENT: Atraumatic, PERRLA, EOMI, Normocephalic, - - Light scleral injection without icterus Oral: Moist Mucosa, No Gingival or Mucosal Lesions/ Ulcerations Neck: Supple, No Nodes, Trachea Midline, JVD, Right Lungs: No wheeze, Diminished, Rales, - - Symmetric expansion. No dullness to percussion. Cardiovascular: Regular rate, Regular Rhythm, Normal S1, Normal S2, Murmur - Grade 3 out of 6 systolic ejection murmur at the right sternal border, No rub noted, No Gallop Abdomen: Bowel Sounds Present, Soft, Non Tender, Distended - Slightly, Obese Extremities: No clubbing, No cyanosis, Capillary Refill Less than 3 Seconds, Edema - 2+ Skin: No rashes, No breakdown Musculoskeletal: No Tenderness to Palpation of Joints or Extremities Lymphatic: No Cervical, Supraclavicular, or Inguinal Adenopathy Neurological: Cranial nerves II-XII grossly intact, Neuro grossly intact, Motor Exam 5/5 strength throughout Psych/Mental Status: Appropriate, Flat Affect Vital Signs Temp Pulse Resp BP Pulse Ox 36.7 C 85 28 H 118/72 98 06/14/17 03:59 06/14/17 08:27 06/14/17 08:27 06/14/17 08:00 06/14/17 08:27 Oxygen Delivery Method Bi-pap Weight: 87.3 kg Body Mass Index (BMI) 32.8 Finger Stick Blood Glucose 202 Intake and Output for Last 24 Hours 06/12/17 06/13/17 06/14/17 23:59 23:59 23:59 Intake Total 216 / 216 Output Total 1000 / 1000 Balance -784 / -784 Laboratory Tests Past 24 Hrs 06/13/17 06/13/17 06/13/17 23:48 23:48 23:49 WBC RBC Hgb Hct MCV MCH MCHC RDW RDW Differential Plt Count MPV Immature Gran % (Auto) Neut % (Auto) Lymph % (Auto) Tripp % (Auto) Eos % (Auto) Baso % (Auto) Absolute Neuts (auto) Absolute Lymphs (auto) Total Counted Differential Comment Specimen Type ART Sample Site R Radial pH 7.34 L Bicarbonate Actual 25.5 POC Total CO2 27 Base Excess 0 O2 Saturation 98 O2 % 50 ABG pCO2 47.4 H ABG pO2 108 H Jefe Test POS Respiration Rate 12 O2 Delivery Device Bi / C PAP EPAP 10 IPAP 16 Blood Gas Notified Whom ED Blood Gas Notified Time 2345 Sodium 137 Potassium 3.8 Chloride 100 Carbon Dioxide 25.0 Anion Gap 12 BUN 35 H Creatinine 2.08 H Estim Creat Clear Calc 25.69 Est GFR (MDRD) Af Amer 40 L Est GFR (MDRD) Non-Af 33 L BUN/Creatinine Ratio 16.8 Glucose 566 H* Hemoglobin A1c Calcium 8.9 Phosphorus 4.4 Magnesium 2.3 Troponin I 0.179 H MRSA (PCR) 06/14/17 06/14/17 06/14/17 01:40 05:00 05:00 WBC 7.5 RBC 3.05 L Hgb 10.6 L Hct 32.9 L MCV 107.9 H MCH 34.8 H MCHC 32.2 RDW 15.2 H RDW Differential 59.1 H Plt Count 151 MPV 11.3 Immature Gran % (Auto) 0.700 Neut % (Auto) 49.0 Lymph % (Auto) 25.5 Tripp % (Auto) 24.6 H Eos % (Auto) 0.1 Baso % (Auto) 0.1 Absolute Neuts (auto) 3.7 Absolute Lymphs (auto) 1.91 Total Counted Not Reportable Differential Comment SCANNED Specimen Type Sample Site pH Bicarbonate Actual POC Total CO2 Base Excess O2 Saturation O2 % ABG pCO2 ABG pO2 Jefe Test Respiration Rate O2 Delivery Device EPAP IPAP Blood Gas Notified Whom Blood Gas Notified Time Sodium 139 Potassium 3.9 Chloride 101 Carbon Dioxide 27.0 Anion Gap 11 BUN 36 H Creatinine 1.83 H Estim Creat Clear Calc 29.20 Est GFR (MDRD) Af Amer 47 L Est GFR (MDRD) Non-Af 39 L BUN/Creatinine Ratio 19.7 Glucose 207 H Hemoglobin A1c Calcium 8.8 Phosphorus Magnesium Troponin I MRSA (PCR) Negative 06/14/17 06/14/17 05:00 05:00 WBC RBC Hgb Hct MCV MCH MCHC RDW RDW Differential Plt Count MPV Immature Gran % (Auto) Neut % (Auto) Lymph % (Auto) Tripp % (Auto) Eos % (Auto) Baso % (Auto) Absolute Neuts (auto) Absolute Lymphs (auto) Total Counted Differential Comment Specimen Type Sample Site pH Bicarbonate Actual POC Total CO2 Base Excess O2 Saturation O2 % ABG pCO2 ABG pO2 Jefe Test Respiration Rate O2 Delivery Device EPAP IPAP Blood Gas Notified Whom Blood Gas Notified Time Sodium Potassium Chloride Carbon Dioxide Anion Gap BUN Creatinine Estim Creat Clear Calc Est GFR (MDRD) Af Amer Est GFR (MDRD) Non-Af BUN/Creatinine Ratio Glucose Hemoglobin A1c 9.0 H Calcium Phosphorus 4.7 Magnesium 2.1 Troponin I MRSA (PCR) POC Glucose 06/14/17 06/14/17 06/14/17 06:58 03:58 02:03 POC Glucose 226 H 213 H 202 H 06/14/17 06/13/17 01:00 23:25 POC Glucose 345 H > 500 H* Clinical Impression(s) from Imaging Studies Chest X-Ray 06/13/17 20:29 IMPRESSION: Stable exam. Electronically Signed: Suraj Fernandezeloisaana, at 22:00 EST Tel , Service support , Chest X-Ray 06/13/17 23:33 IMPRESSION: Stable cardiomegaly. Worsening of right hilar prominence, possibly vascular. Consider further evaluation with CT. Pulmonary vascular congestion and small pleural effusions at the lung bases with adjacent atelectasis/consolidation, superimposed pneumonia cannot be excluded. at 0019 Reported and signed by: Roshni Franco MD Electronically Signed: Roshni Franco MD at 23:18 EST Tel , Service support , Assessment/Plan Active and Suspected Problems (Last Reviewed 05/17/17 @ 15:28 by Trice Bowling) Acute on chronic combined systolic and diastolic heart failure (Acute) Acute renal failure superimposed on stage 3 chronic kidney disease (Acute) RECOMMENDATIONS: 1. BiPAP breaks as tolerated 2. Schedule diuresis 3. Electrolyte repletion as indicated 4. Monitor for ectopy with telemetry 5. Hold amlodipine IMPRESSIONS: 1. Acute hypoxic respiratory failure secondary to acute on chronic diastolic congestive heart failure Patient with noncompliance of Lasix therapy for the last 4-5 days leading to volume overload. This is complicated by patient's severe aortic stenosis with a last known valve area of 0.7 cm?. Patient to have corrective surgery later this month. Will continue with active diuresis. Electrolyte repletion as indicated. Monitor patient for ectopy with telemetry. Patient does not have a history of COPD that we are aware of, so would avoid any bronchodilators or steroids unless patient decompensates. Patient is to have definitive surgical intervention later this month at [facility]. No further workup is likely indicated at this time. 2. Acute on chronic kidney disease stage IV Likely secondary to decreased perfusion secondary to volume overload with loss of starling forces. Continue with diuresis. Electrolyte repletion as indicated. 3. Diabetes mellitus type 2 uncontrolled Patient was severely elevated glucose on presentation and does have an elevated hemoglobin A1c. Patient has been educated on a diabetic diet in the past, but initiation of insulin may be necessary. 4. Anxiety Agree with discontinuation of Xanax as this can lead to delirium. Haldol may be a better choice, but EKGs will need to be followed for QT interval. TIME: 33 minutes critical care time spent addressing patient's acute hypoxic respiratory failure, acute on chronic kidney disease, diabetes mellitus, review of all data and collaboration with care team Code Visit [id number]: [id number] Critical care first hour
--- NOTE | 2017-06-14 11:22 | PCM.CONS.R ---
Problem List (1) Acute renal failure superimposed on stage 3 chronic kidney disease Status: Acute Consultation - Renal PCP/ Referring MD: Requesting physician: [] Primary care physician: Berny Almanza - History of Present Illness History of Present Illness: The patient is a 77 year old M past medical history of CHF , diabetes , hypertension , chronic kidney disease stage III , patient presented with progressive respiratory distress.patient supposed to be on Lasix 40 mg p.o. daily but patient stopped taking Lasix for 5 days ago because he thought it was not working . When patient presented to the emergency room he was found to have CHF decompensation with x-ray showing bilateral pleural effusion and there is CHF changes . Patient was given 80 mg IV Lasix yesterday in the emergency room . He made about 1 L of urine output . Patient currently has a Sharpe catheter which is draining clear urine . Renal team was consulted for acute kidney injury on chronic kidney disease . Patient presented with a creatinine 2 and improved to 1.8 today . No documented history of IV contrast exposure . No NSAIDs use . No recent UTI . No recent urination difficulty . Patient is supposed to have a heart valve surgery with Dr. Ramirez at [facility] on the of this month. ROS: 12 systems review is negative except for the usual hard hearing, shortness of breath, leg edema. [] - Allergies Allergies: Allergies No Known Allergies Allergy (Verified 06/13/17 19:49) - Current Medications Current Medications: Current Medications Albuterol Sulfate (Ventolin Aerosols) 2.5 mg INHALATION Q2H PRN PRN PRN Reason: SHORTNESS OF BREATH Albuterol/Ipratropium (Duoneb) 3 ml INHALATION Q4HWA.RT [facility] Aspirin (Aspirin, Baby) 81 mg PO DAILY@0800 [facility] Last Admin: 06/14/17 01:29 Dose: 81 mg Dextrose (D50w Syringe) 0 gm IV X1 PRN; Protocol PRN Reason: Hypoglycemia Furosemide (Lasix) 40 mg IV Q8 [facility] Glucagon () 1 mg IM .X1 PRN PRN Reason: Hypoglycemia Heparin Sodium (Porcine) () 5,000 units SC BID [facility] Insulin Aspart (Novolog Flexpen (Bkc)) 0 units SC Q6 [facility] PRN Reason: Protocol Last Admin: 06/14/17 08:31 Dose: 4 u Metoprolol Tartrate (Lopressor (Beta Severo)) 50 mg PO BID [facility] Multivitamins (Multivitamin) 1 tablet PO DAILYCM [facility] Nutritional Formula (Lactose Free) (Glucerna Shake) 120 ml PO 4X/DAY [facility] Sodium Chloride () 5 - 30 ml IV UD PRN PRN Reason: SALINE FLUSH Last Admin: 06/14/17 05:37 Dose: 10 ml - Past Medical History Past Medical History (Chronic Problems): Chronic Problems (Last Reviewed 05/17/17 @ 15:28 by Trice Bowling) Type 2 diabetes mellitus with hyperglycemia (Chronic) 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) Cardiomyopathy in disease classified elsewhere (Chronic) Hypertension (Chronic) Dyspnea on exertion (Chronic) - Past Surgical History Surgical History: adenoidectomy, cholecystectomy, tonsillectomy - Social History Smoking Status: Former smoker - Family History Maternal Family History: Family History (Last Reviewed 05/17/17 @ 15:28 by Trice Bowling) Mother Hypertension History Items: Hypertension Paternal Family History: Family History (Last Reviewed 05/17/17 @ 15:28 by Tirce Bowling) Mother Hypertension History Items: Hypertension Patient Problems: Active and Suspected Problems (Last Reviewed 05/17/17 @ 15:28 by Trice Bowling) Acute on chronic combined systolic and diastolic heart failure (Acute) Acute renal failure superimposed on stage 3 chronic kidney disease (Acute) - Physical Exam General: Alert, Oriented x3, - - BiPAP 30%. HEENT: Atraumatic Oral: Moist Mucosa Neck: Supple, JVD, Bilateral Lungs: - - Bilateral crackles with decreased breath sounds over both lung spaces Cardiovascular: Regular rate, Regular Rhythm, Normal S1, Normal S2 Abdomen: Bowel Sounds Present, Soft, Non Tender Extremities: - - +1 edema of lower extremities Skin: No rashes Musculoskeletal: No Tenderness to Palpation of Joints or Extremities Lymphatic: No Cervical, Supraclavicular, or Inguinal Adenopathy Neurological: Cranial nerves II-XII grossly intact, Neuro grossly intact Psych/Mental Status: Appropriate Vital Signs Temp Pulse Resp BP Pulse Ox 98.0 F 81 17 117/76 100 06/14/17 03:59 06/14/17 10:00 06/14/17 10:00 06/14/17 10:00 06/14/17 10:00 Oxygen Delivery Method Bi-pap Weight: 87.3 kg Body Mass Index (BMI) 32.8 Finger Stick Blood Glucose 202 Intake and Output for Last 24 Hours 06/12/17 06/13/17 06/14/17 23:59 23:59 23:59 Intake Total 216 / 216 Output Total 1000 / 1000 Balance -784 / -784 Laboratory Tests Past 24 Hrs 06/13/17 06/13/17 06/13/17 23:48 23:48 23:49 WBC RBC Hgb Hct MCV MCH MCHC RDW RDW Differential Plt Count MPV Immature Gran % (Auto) Neut % (Auto) Lymph % (Auto) [place] % (Auto) Eos % (Auto) Baso % (Auto) Absolute Neuts (auto) Absolute Lymphs (auto) Total Counted Differential Comment Specimen Type ART Sample Site R Radial pH 7.34 L Bicarbonate Actual 25.5 POC Total CO2 27 Base Excess 0 O2 Saturation 98 O2 % 50 ABG pCO2 47.4 H ABG pO2 108 H Jefe Test POS Respiration Rate 12 O2 Delivery Device Bi / C PAP EPAP 10 IPAP 16 Blood Gas Notified Whom ED Blood Gas Notified Time 2345 Sodium 137 Potassium 3.8 Chloride 100 Carbon Dioxide 25.0 Anion Gap 12 BUN 35 H Creatinine 2.08 H Estim Creat Clear Calc 25.69 Est GFR (MDRD) Af Amer 40 L Est GFR (MDRD) Non-Af 33 L BUN/Creatinine Ratio 16.8 Glucose 566 H* Hemoglobin A1c Calcium 8.9 Phosphorus 4.4 Magnesium 2.3 Troponin I 0.179 H MRSA (PCR) 06/14/17 06/14/17 06/14/17 01:40 05:00 05:00 WBC 7.5 RBC 3.05 L Hgb 10.6 L Hct 32.9 L MCV 107.9 H MCH 34.8 H MCHC 32.2 RDW 15.2 H RDW Differential 59.1 H Plt Count 151 MPV 11.3 Immature Gran % (Auto) 0.700 Neut % (Auto) 49.0 Lymph % (Auto) 25.5 [place] % (Auto) 24.6 H Eos % (Auto) 0.1 Baso % (Auto) 0.1 Absolute Neuts (auto) 3.7 Absolute Lymphs (auto) 1.91 Total Counted Not Reportable Differential Comment SCANNED Specimen Type Sample Site pH Bicarbonate Actual POC Total CO2 Base Excess O2 Saturation O2 % ABG pCO2 ABG pO2 Jefe Test Respiration Rate O2 Delivery Device EPAP IPAP Blood Gas Notified Whom Blood Gas Notified Time Sodium 139 Potassium 3.9 Chloride 101 Carbon Dioxide 27.0 Anion Gap 11 BUN 36 H Creatinine 1.83 H Estim Creat Clear Calc 29.20 Est GFR (MDRD) Af Amer 47 L Est GFR (MDRD) Non-Af 39 L BUN/Creatinine Ratio 19.7 Glucose 207 H Hemoglobin A1c Calcium 8.8 Phosphorus Magnesium Troponin I MRSA (PCR) Negative 06/14/17 06/14/17 05:00 05:00 WBC RBC Hgb Hct MCV MCH MCHC RDW RDW Differential Plt Count MPV Immature Gran % (Auto) Neut % (Auto) Lymph % (Auto) [place] % (Auto) Eos % (Auto) Baso % (Auto) Absolute Neuts (auto) Absolute Lymphs (auto) Total Counted Differential Comment Specimen Type Sample Site pH Bicarbonate Actual POC Total CO2 Base Excess O2 Saturation O2 % ABG pCO2 ABG pO2 Jefe Test Respiration Rate O2 Delivery Device EPAP IPAP Blood Gas Notified Whom Blood Gas Notified Time Sodium Potassium Chloride Carbon Dioxide Anion Gap BUN Creatinine Estim Creat Clear Calc Est GFR (MDRD) Af Amer Est GFR (MDRD) Non-Af BUN/Creatinine Ratio Glucose Hemoglobin A1c 9.0 H Calcium Phosphorus 4.7 Magnesium 2.1 Troponin I MRSA (PCR) POC Glucose 06/14/17 06/14/17 06/14/17 06:58 03:58 02:03 POC Glucose 226 H 213 H 202 H 06/14/17 06/13/17 01:00 23:25 POC Glucose 345 H > 500 H* Assessment/Plan Active and Suspected Problems (Last Reviewed 05/17/17 @ 15:28 by Trice Bowling) Acute on chronic combined systolic and diastolic heart failure (Acute) Acute renal failure superimposed on stage 3 chronic kidney disease (Acute) 1-8 kidney injury on chronic kidney disease stage III. Baseline creatinine around 1.5 mg/dL. Patient presented with the CHF decompensation along with the pari due to noncompliance with diuretics Getting peaked at 2 mg/dL. now it is better at 1.8. Patient is making good amount of urine with diuretics. Kidney injury is most probably from cardiorenal syndrome. Agree with the Lasix 40 every 8 hours for now. Keep mean arterial pressure more than 65. Strict input output charting. No need for renal replacement therapy. Avoid DIMAS inhibitor/ARB. Dose medications as per the current GFR Urinalysis 2-hypertension patient used to be on Norvasc 2.5 mg p.o. daily on hold for now. Keep mean arterial pressure more than 65 to maintain renal perfusion 3-CHF decompensation. Improving. Continue diuresis. Strict input output charting. Daily weights. Heart rate management as per the ICU/cardiology team 4-acute hypoxemic respiratory failure due to #3. On BiPAP with FiO2 30%. Good oxygen saturation. O2 support as per the ICU team. 5-diabetes. Blood glucose management as per the primary team Thank you for the consult. We will continue to follow. Please do not hesitate to call me with any question or concern at my cell [phone] Gigi Temple MD
--- NOTE | 2017-06-14 11:30 | CON.PCM_ITS ---
Problem List (1) Acute renal failure superimposed on stage 3 chronic kidney disease Status: Acute Consultation - Renal PCP/ Referring MD: Requesting physician: [] Primary care physician: Berny Almanza - History of Present Illness History of Present Illness: The patient is a 77 year old M past medical history of CHF , diabetes , hypertension , chronic kidney disease stage III , patient presented with progressive respiratory distress.patient supposed to be on Lasix 40 mg p.o. daily but patient stopped taking Lasix for 5 days ago because he thought it was not working . When patient presented to the emergency room he was found to have CHF decompensation with x-ray showing bilateral pleural effusion and there is CHF changes . Patient was given 80 mg IV Lasix yesterday in the emergency room . He made about 1 L of urine output . Patient currently has a Sharpe catheter which is draining clear urine . Renal team was consulted for acute kidney injury on chronic kidney disease . Patient presented with a creatinine 2 and improved to 1.8 today . No documented history of IV contrast exposure . No NSAIDs use . No recent UTI . No recent urination difficulty . Patient is supposed to have a heart valve surgery with Dr. Ramirez at [facility] on the of this month. ROS: 12 systems review is negative except for the usual hard hearing, shortness of breath, leg edema. [] - Allergies Allergies: Allergies No Known Allergies Allergy (Verified 06/13/17 19:49) - Current Medications Current Medications: Current Medications Albuterol Sulfate (Ventolin Aerosols) 2.5 mg INHALATION Q2H PRN PRN PRN Reason: SHORTNESS OF BREATH Albuterol/Ipratropium (Duoneb) 3 ml INHALATION Q4HWA.RT REPLACED BY [facility] Aspirin (Aspirin, Baby) 81 mg PO DAILY@0800 REPLACED BY [facility] Last Admin: 06/14/17 01:29 Dose: 81 mg Dextrose (D50w Syringe) 0 gm IV X1 PRN; Protocol PRN Reason: Hypoglycemia Furosemide (Lasix) 40 mg IV Q8 REPLACED BY [facility] Glucagon () 1 mg IM .X1 PRN PRN Reason: Hypoglycemia Heparin Sodium (Porcine) () 5,000 units SC BID REPLACED BY [facility] Insulin Aspart (Novolog Flexpen (Bkc)) 0 units SC Q6 ZOHREH PRN Reason: Protocol Last Admin: 06/14/17 08:31 Dose: 4 u Metoprolol Tartrate (Lopressor (Beta Severo)) 50 mg PO BID ZOHREH Multivitamins (Multivitamin) 1 tablet PO DAILYCM ZOHREH Nutritional Formula (Lactose Free) (Glucerna Shake) 120 ml PO 4X/DAY ZOHREH Sodium Chloride () 5 - 30 ml IV UD PRN PRN Reason: SALINE FLUSH Last Admin: 06/14/17 05:37 Dose: 10 ml - Past Medical History Past Medical History (Chronic Problems): Chronic Problems (Last Reviewed 05/17/17 @ 15:28 by Trice Bowling) Type 2 diabetes mellitus with hyperglycemia (Chronic) 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) Cardiomyopathy in disease classified elsewhere (Chronic) Hypertension (Chronic) Dyspnea on exertion (Chronic) - Past Surgical History Surgical History: adenoidectomy, cholecystectomy, tonsillectomy - Social History Smoking Status: Former smoker - Family History Maternal Family History: Family History (Last Reviewed 05/17/17 @ 15:28 by Trice Bowling) Mother Hypertension History Items: Hypertension Paternal Family History: Family History (Last Reviewed 05/17/17 @ 15:28 by Trice Bowling) Mother Hypertension History Items: Hypertension Patient Problems: Active and Suspected Problems (Last Reviewed 05/17/17 @ 15:28 by Trice Bowling) Acute on chronic combined systolic and diastolic heart failure (Acute) Acute renal failure superimposed on stage 3 chronic kidney disease (Acute) - Physical Exam General: Alert, Oriented x3, - - BiPAP 30%. HEENT: Atraumatic Oral: Moist Mucosa Neck: Supple, JVD, Bilateral Lungs: - - Bilateral crackles with decreased breath sounds over both lung spaces Cardiovascular: Regular rate, Regular Rhythm, Normal S1, Normal S2 Abdomen: Bowel Sounds Present, Soft, Non Tender Extremities: - - +1 edema of lower extremities Skin: No rashes Musculoskeletal: No Tenderness to Palpation of Joints or Extremities Lymphatic: No Cervical, Supraclavicular, or Inguinal Adenopathy Neurological: Cranial nerves II-XII grossly intact, Neuro grossly intact Psych/Mental Status: Appropriate Vital Signs Temp Pulse Resp BP Pulse Ox 98.0 F 81 17 117/76 100 06/14/17 03:59 06/14/17 10:00 06/14/17 10:00 06/14/17 10:00 06/14/17 10:00 Oxygen Delivery Method Bi-pap Weight: 87.3 kg Body Mass Index (BMI) 32.8 Finger Stick Blood Glucose 202 Intake and Output for Last 24 Hours 06/12/17 06/13/17 06/14/17 23:59 23:59 23:59 Intake Total 216 / 216 Output Total 1000 / 1000 Balance -784 / -784 Laboratory Tests Past 24 Hrs 06/13/17 06/13/17 06/13/17 23:48 23:48 23:49 WBC RBC Hgb Hct MCV MCH MCHC RDW RDW Differential Plt Count MPV Immature Gran % (Auto) Neut % (Auto) Lymph % (Auto) [place] % (Auto) Eos % (Auto) Baso % (Auto) Absolute Neuts (auto) Absolute Lymphs (auto) Total Counted Differential Comment Specimen Type ART Sample Site R Radial pH 7.34 L Bicarbonate Actual 25.5 POC Total CO2 27 Base Excess 0 O2 Saturation 98 O2 % 50 ABG pCO2 47.4 H ABG pO2 108 H Jefe Test POS Respiration Rate 12 O2 Delivery Device Bi / C PAP EPAP 10 IPAP 16 Blood Gas Notified Whom ED Blood Gas Notified Time 2345 Sodium 137 Potassium 3.8 Chloride 100 Carbon Dioxide 25.0 Anion Gap 12 BUN 35 H Creatinine 2.08 H Estim Creat Clear Calc 25.69 Est GFR (MDRD) Af Amer 40 L Est GFR (MDRD) Non-Af 33 L BUN/Creatinine Ratio 16.8 Glucose 566 H* Hemoglobin A1c Calcium 8.9 Phosphorus 4.4 Magnesium 2.3 Troponin I 0.179 H MRSA (PCR) 06/14/17 06/14/17 06/14/17 01:40 05:00 05:00 WBC 7.5 RBC 3.05 L Hgb 10.6 L Hct 32.9 L MCV 107.9 H MCH 34.8 H MCHC 32.2 RDW 15.2 H RDW Differential 59.1 H Plt Count 151 MPV 11.3 Immature Gran % (Auto) 0.700 Neut % (Auto) 49.0 Lymph % (Auto) 25.5 [place] % (Auto) 24.6 H Eos % (Auto) 0.1 Baso % (Auto) 0.1 Absolute Neuts (auto) 3.7 Absolute Lymphs (auto) 1.91 Total Counted Not Reportable Differential Comment SCANNED Specimen Type Sample Site pH Bicarbonate Actual POC Total CO2 Base Excess O2 Saturation O2 % ABG pCO2 ABG pO2 Jefe Test Respiration Rate O2 Delivery Device EPAP IPAP Blood Gas Notified Whom Blood Gas Notified Time Sodium 139 Potassium 3.9 Chloride 101 Carbon Dioxide 27.0 Anion Gap 11 BUN 36 H Creatinine 1.83 H Estim Creat Clear Calc 29.20 Est GFR (MDRD) Af Amer 47 L Est GFR (MDRD) Non-Af 39 L BUN/Creatinine Ratio 19.7 Glucose 207 H Hemoglobin A1c Calcium 8.8 Phosphorus Magnesium Troponin I MRSA (PCR) Negative 06/14/17 06/14/17 05:00 05:00 WBC RBC Hgb Hct MCV MCH MCHC RDW RDW Differential Plt Count MPV Immature Gran % (Auto) Neut % (Auto) Lymph % (Auto) [place] % (Auto) Eos % (Auto) Baso % (Auto) Absolute Neuts (auto) Absolute Lymphs (auto) Total Counted Differential Comment Specimen Type Sample Site pH Bicarbonate Actual POC Total CO2 Base Excess O2 Saturation O2 % ABG pCO2 ABG pO2 Jefe Test Respiration Rate O2 Delivery Device EPAP IPAP Blood Gas Notified Whom Blood Gas Notified Time Sodium Potassium Chloride Carbon Dioxide Anion Gap BUN Creatinine Estim Creat Clear Calc Est GFR (MDRD) Af Amer Est GFR (MDRD) Non-Af BUN/Creatinine Ratio Glucose Hemoglobin A1c 9.0 H Calcium Phosphorus 4.7 Magnesium 2.1 Troponin I MRSA (PCR) POC Glucose 06/14/17 06/14/17 06/14/17 06:58 03:58 02:03 POC Glucose 226 H 213 H 202 H 06/14/17 06/13/17 01:00 23:25 POC Glucose 345 H > 500 H* Assessment/Plan Active and Suspected Problems (Last Reviewed 05/17/17 @ 15:28 by Triec Bowling) Acute on chronic combined systolic and diastolic heart failure (Acute) Acute renal failure superimposed on stage 3 chronic kidney disease (Acute) 1-8 kidney injury on chronic kidney disease stage III. Baseline creatinine around 1.5 mg/dL. Patient presented with the CHF decompensation along with the pari due to noncompliance with diuretics Getting peaked at 2 mg/dL. now it is better at 1.8. Patient is making good amount of urine with diuretics. Kidney injury is most probably from cardiorenal syndrome. Agree with the Lasix 40 every 8 hours for now. Keep mean arterial pressure more than 65. Strict input output charting. No need for renal replacement therapy. Avoid DIMAS inhibitor/ARB. Dose medications as per the current GFR Urinalysis 2-hypertension patient used to be on Norvasc 2.5 mg p.o. daily on hold for now. Keep mean arterial pressure more than 65 to maintain renal perfusion 3-CHF decompensation. Improving. Continue diuresis. Strict input output charting. Daily weights. Heart rate management as per the ICU/cardiology team 4-acute hypoxemic respiratory failure due to #3. On BiPAP with FiO2 30%. Good oxygen saturation. O2 support as per the ICU team. 5-diabetes. Blood glucose management as per the primary team Thank you for the consult. We will continue to follow. Please do not hesitate to call me with any question or concern at my cell [phone] Gigi Temple MD
--- NOTE | 2017-06-14 11:37 | CASEMGMT ---
DC PLAN undetermined. Pt is in ICU on Bipap, unable to participate in dc planning @ this time. Will continue to follow and assist with dc planning. -Pt does not wear Home O2 per chart. May need O2 testing prior to dc. -PT/OT not ordered yet due to resp status. Will follow when PT/OT involved to eval activity. -Attempted x2 to call , no answer. She has not been in to visit pt today. Alisha AVALOSN RN ACM
[2017-06-14] MEDS: Metoprolol Tartrate 50 MG Tablet PO ×2 (12:45→21:49)
[2017-06-14] MEDS: Multivitamins,Therapeutic Tablet 1 TABLET PO (12:45)
[2017-06-14] MEDS: Heparin Injection 5,000 UNITS/ML Syringe 5000 UNITS SC ×2 (12:46→21:49)
[2017-06-14 13:19] LABS: Mucous, Urine 0 SEEN /hpf (<or=2+)
[2017-06-14 13:21] LABS: Color, Urine Yellow (Yellow); Glucose, Dipstick Normal (Normal); Ketone-Dipstick Negative (Negative); Leukocyte Esterase-Dipstick 100 /ul (Negative); Nitrite-Dipstick Negative (Negative); Occult Blood-Urine 150 /ul (Negative); Protein-Dipstick Negative (Negative); Urine Bilirubin Dipstick Negative (Negative); Urine Clarity Clear (Clear); Urine Urobilinogen Normal (Normal)
[2017-06-14 13:26] LABS: Bacteria RARE /hpf (None Seen); Red Blood Cells-Urine 5-10 SEEN /hpf (0-5); Squamous Epithelial Cells - UA 0-5 SEEN /hpf (0-5); White Blood Cells 5-10 SEEN /hpf (0-5)
[2017-06-14 14:10] LABS: Bedside Glucose 230 mg/dL (70-110)
[2017-06-14] MEDS: Glucerna Shake 120 ML LIQUID PO ×3 (16:37→21:50)
[2017-06-14 17:50] LABS: Bedside Glucose 333 mg/dL (70-110)
[2017-06-14 22:05] LABS: Bedside Glucose 274 mg/dL (70-110)
[2017-06-14 23:58] LABS: Phosphorus 3.7 mg/dL (2.5-4.9); Potassium 3.3 mmol/L (3.5-5.1)
[2017-06-15] VITALS (24 sets, daily range): BP systolic 85–124; BP diastolic 51–79; PULSE 83–122; RESP 18–29; TEMP 36.2–37.2; O2SAT 94–100
[2017-06-15] MEDS: 0.9% NaCl Peripheral Flush Adult/Peds IV ×2 (03:32→05:54)
[2017-06-15 03:46] LABS: Bedside Glucose 226 mg/dL (70-110)
[2017-06-15] MEDS: Furosemide 40 MG/4 ML Vial IV (05:54)
[2017-06-15 06:17] LABS: Absolute Lymphocyte Count 2.48 X10^3/ul (0.83-4.51); Absolute Neutrophil Count 4.5 X10^3/uL (2.0-7.7); Basophil# 0.01 X10^3/uL; Basophil% 0.1 % (0-1); Eosinophil# 0.06 X10^3/uL; Eosinophils% 0.7 % (0-5); Hematocrit 34.5 % (40-54); Hemoglobin 11.4 g/dl (13.0-16.5); Lymphocyte # 2.48 X10^3/ul (4.0); Lymphocyte % 27.1 % (19-41); Mean Corpuscular Hgb 35.5 pg (27.0-32.0); Mean Corpuscular Volume 107.5 fL (80-94); Mean Platelet Vol. 11.4 fl (6.2-12.0); Monocyte# 2.01 X10^3/uL; Neutrophil # 4.52 X10^3/uL (2.7-7.7); Neutrophil % 49.3 % (47-70); Platelet Count 156 K/mm3 (150-450); RBC Distribution Width CV 14.4 % (11.6-14.6); RBC Distribution Width SD 54.9 fl (35.1-43.9); Red Blood Count 3.21 M/mm3 (4.6-6.2); White Blood Count 9.2 K/mm3 (4.4-11.0)
[2017-06-15 06:26] LABS: Differential Indicated SCAN CRITERIA MET; POSITIVE COUNT NO; POSITIVE DIFFERENTIAL YES; POSITIVE MORPHOLOGY NO
[2017-06-15 06:32] LABS: Anion Gap 9 (5-15); BUN 34 mg/dL (7-18); BUN/Creat Ratio 19.2 RATIO (10-20); Calcium,Total 8.8 mg/dL (8.5-10.1); Chloride 100 mmol/L (98-107); Creatinine, Serum 1.77 mg/dL (0.70-1.30); EST Glomerular Filtration Rate 40 mL/min (>60); Est Glom Filt Rate - Afr Amer 49 mL/min (>60); Estimated Creatinine Clearance 30.19 ml/min; Glucose 126 mg/dL (70-110); Potassium 3.6 mmol/L (3.5-5.1); Sodium Level 139 mmol/L (136-145)
[2017-06-15 06:33] LABS: Magnesium 1.9 mg/dL (1.8-2.4)
[2017-06-15 06:46] LABS: Differential Comment SCANNED
--- NOTE | 2017-06-15 07:24 | PCM.PN.INT ---
Subjective: Patient did well overnight. Patient has not required BiPAP rescue through most of the evening and this morning. Patient denies any dyspnea at rest. Patient denies any pain. Patient is still requiring supplemental oxygen and does state that he does not typically require supplemental oxygen. No cough or fevers been reported. Blood pressures have remained stable. Patient did have some muscle cramps overnight similar to those reported at home General: Alert, Oriented x3, Cooperative, No apparent distress, - - Speaking in full sentences HEENT: Atraumatic, PERRLA, EOMI, Normocephalic, - - No scleral icterus or injection noted. Oral: Moist Mucosa, No Gingival or Mucosal Lesions/ Ulcerations Neck: Supple, No Nodes, Trachea Midline, JVD, Right Lungs: No rhonchi, No wheeze, No rales, Diminished, - - Symmetric expansion. No dullness to percussion. Cardiovascular: Regular rate, Regular Rhythm, Normal S1, Normal S2, Murmur, No rub noted, No Gallop Abdomen: Bowel Sounds Present, Soft, Non Tender, Non-Distended Extremities: No clubbing, No cyanosis, Capillary Refill Less than 3 Seconds, Edema - Improved Skin: No rashes, No breakdown Musculoskeletal: No Tenderness to Palpation of Joints or Extremities, No Muscle Wasting Lymphatic: No Cervical, Supraclavicular, or Inguinal Adenopathy Neurological: Cranial nerves II-XII grossly intact, Neuro grossly intact, Motor Exam 5/5 strength throughout Psych/Mental Status: Alert and oriented to time, place, person, mood and affect Vital Signs Temp Pulse Resp BP Pulse Ox 36.6 C 98 28 H 109/73 97 06/15/17 03:00 06/15/17 06:00 06/15/17 06:00 06/15/17 06:00 06/15/17 06:00 Oxygen Flow Rate 2 Oxygen Delivery Method Nasal Cannula Weight: 85.3 kg Body Mass Index (BMI) 32.8 Finger Stick Blood Glucose 202 Intake and Output for Last 24 Hours 06/13/17 06/14/17 06/15/17 23:59 23:59 23:59 Intake Total 1276 / 1276 240 / 240 Output Total 4125 / 4125 1050 / 1050 Balance -2849 / -2849 -810 / -810 Labs (Last 48 Hours) 06/13/17 06/13/17 06/13/17 23:25 23:48 23:48 WBC RBC Hgb Hct MCV MCH MCHC RDW RDW Differential Plt Count MPV Immature Gran % (Auto) Neut % (Auto) Lymph % (Auto) [place] % (Auto) Eos % (Auto) Baso % (Auto) Absolute Neuts (auto) Absolute Lymphs (auto) Total Counted Differential Comment Specimen Type Sample Site pH Bicarbonate Actual POC Total CO2 Base Excess O2 Saturation O2 % ABG pCO2 ABG pO2 Jefe Test Respiration Rate O2 Delivery Device EPAP IPAP Blood Gas Notified Whom Blood Gas Notified Time Sodium 137 Potassium 3.8 Chloride 100 Carbon Dioxide 25.0 Anion Gap 12 BUN 35 H Creatinine 2.08 H Estim Creat Clear Calc 25.69 Est GFR (MDRD) Af Amer 40 L Est GFR (MDRD) Non-Af 33 L BUN/Creatinine Ratio 16.8 Glucose 566 H* Hemoglobin A1c Calcium 8.9 Phosphorus 4.4 Magnesium 2.3 Troponin I 0.179 H Urine Color Urine Clarity Urine pH Ur Specific [place] Urine Protein Urine Glucose (UA) Urine Ketones Urine Occult Blood Urine Nitrite Urine Bilirubin Urine Urobilinogen Ur Leukocyte Esterase Urine RBC Urine WBC Ur Squamous Epith Cells Urine Bacteria Urine Mucus MRSA (PCR) POC Glucose > 500 H* 06/13/17 06/14/17 06/14/17 23:49 01:00 01:40 WBC RBC Hgb Hct MCV MCH MCHC RDW RDW Differential Plt Count MPV Immature Gran % (Auto) Neut % (Auto) Lymph % (Auto) [place] % (Auto) Eos % (Auto) Baso % (Auto) Absolute Neuts (auto) Absolute Lymphs (auto) Total Counted Differential Comment Specimen Type ART Sample Site R Radial pH 7.34 L Bicarbonate Actual 25.5 POC Total CO2 27 Base Excess 0 O2 Saturation 98 O2 % 50 ABG pCO2 47.4 H ABG pO2 108 H Jefe Test POS Respiration Rate 12 O2 Delivery Device Bi / C PAP EPAP 10 IPAP 16 Blood Gas Notified Whom ED Blood Gas Notified Time 2345 Sodium Potassium Chloride Carbon Dioxide Anion Gap BUN Creatinine Estim Creat Clear Calc Est GFR (MDRD) Af Amer Est GFR (MDRD) Non-Af BUN/Creatinine Ratio Glucose Hemoglobin A1c Calcium Phosphorus Magnesium Troponin I Urine Color Urine Clarity Urine pH Ur Specific [place] Urine Protein Urine Glucose (UA) Urine Ketones Urine Occult Blood Urine Nitrite Urine Bilirubin Urine Urobilinogen Ur Leukocyte Esterase Urine RBC Urine WBC Ur Squamous Epith Cells Urine Bacteria Urine Mucus MRSA (PCR) Negative POC Glucose 345 H 06/14/17 06/14/17 06/14/17 02:03 03:58 05:00 WBC 7.5 RBC 3.05 L Hgb 10.6 L Hct 32.9 L MCV 107.9 H MCH 34.8 H MCHC 32.2 RDW 15.2 H RDW Differential 59.1 H Plt Count 151 MPV 11.3 Immature Gran % (Auto) 0.700 Neut % (Auto) 49.0 Lymph % (Auto) 25.5 [place] % (Auto) 24.6 H Eos % (Auto) 0.1 Baso % (Auto) 0.1 Absolute Neuts (auto) 3.7 Absolute Lymphs (auto) 1.91 Total Counted Not Reportable Differential Comment SCANNED Specimen Type Sample Site pH Bicarbonate Actual POC Total CO2 Base Excess O2 Saturation O2 % ABG pCO2 ABG pO2 Jefe Test Respiration Rate O2 Delivery Device EPAP IPAP Blood Gas Notified Whom Blood Gas Notified Time Sodium Potassium Chloride Carbon Dioxide Anion Gap BUN Creatinine Estim Creat Clear Calc Est GFR (MDRD) Af Amer Est GFR (MDRD) Non-Af BUN/Creatinine Ratio Glucose Hemoglobin A1c Calcium Phosphorus Magnesium Troponin I Urine Color Urine Clarity Urine pH Ur Specific [place] Urine Protein Urine Glucose (UA) Urine Ketones Urine Occult Blood Urine Nitrite Urine Bilirubin Urine Urobilinogen Ur Leukocyte Esterase Urine RBC Urine WBC Ur Squamous Epith Cells Urine Bacteria Urine Mucus MRSA (PCR) POC Glucose 202 H 213 H 06/14/17 06/14/17 06/14/17 05:00 05:00 05:00 WBC RBC Hgb Hct MCV MCH MCHC RDW RDW Differential Plt Count MPV Immature Gran % (Auto) Neut % (Auto) Lymph % (Auto) [place] % (Auto) Eos % (Auto) Baso % (Auto) Absolute Neuts (auto) Absolute Lymphs (auto) Total Counted Differential Comment Specimen Type Sample Site pH Bicarbonate Actual POC Total CO2 Base Excess O2 Saturation O2 % ABG pCO2 ABG pO2 Jefe Test Respiration Rate O2 Delivery Device EPAP IPAP Blood Gas Notified Whom Blood Gas Notified Time Sodium 139 Potassium 3.9 Chloride 101 Carbon Dioxide 27.0 Anion Gap 11 BUN 36 H Creatinine 1.83 H Estim Creat Clear Calc 29.20 Est GFR (MDRD) Af Amer 47 L Est GFR (MDRD) Non-Af 39 L BUN/Creatinine Ratio 19.7 Glucose 207 H Hemoglobin A1c 9.0 H Calcium 8.8 Phosphorus 4.7 Magnesium 2.1 Troponin I Urine Color Urine Clarity Urine pH Ur Specific [place] Urine Protein Urine Glucose (UA) Urine Ketones Urine Occult Blood Urine Nitrite Urine Bilirubin Urine Urobilinogen Ur Leukocyte Esterase Urine RBC Urine WBC Ur Squamous Epith Cells Urine Bacteria Urine Mucus MRSA (PCR) POC Glucose 06/14/17 06/14/17 06/14/17 06:58 12:45 13:24 WBC RBC Hgb Hct MCV MCH MCHC RDW RDW Differential Plt Count MPV Immature Gran % (Auto) Neut % (Auto) Lymph % (Auto) [place] % (Auto) Eos % (Auto) Baso % (Auto) Absolute Neuts (auto) Absolute Lymphs (auto) Total Counted Differential Comment Specimen Type Sample Site pH Bicarbonate Actual POC Total CO2 Base Excess O2 Saturation O2 % ABG pCO2 ABG pO2 Jefe Test Respiration Rate O2 Delivery Device EPAP IPAP Blood Gas Notified Whom Blood Gas Notified Time Sodium Potassium Chloride Carbon Dioxide Anion Gap BUN Creatinine Estim Creat Clear Calc Est GFR (MDRD) Af Amer Est GFR (MDRD) Non-Af BUN/Creatinine Ratio Glucose Hemoglobin A1c Calcium Phosphorus Magnesium Troponin I Urine Color Yellow Urine Clarity Clear Urine pH 6.0 Ur Specific [place] 1.010 Urine Protein Negative Urine Glucose (UA) Normal Urine Ketones Negative Urine Occult Blood 150 H Urine Nitrite Negative Urine Bilirubin Negative Urine Urobilinogen Normal Ur Leukocyte Esterase 100 H Urine RBC 5-10 SEEN Urine WBC 5-10 SEEN Ur Squamous Epith Cells 0-5 SEEN Urine Bacteria RARE Urine Mucus 0 SEEN MRSA (PCR) POC Glucose 226 H 230 H 06/14/17 06/14/17 06/14/17 17:26 21:54 23:35 WBC RBC Hgb Hct MCV MCH MCHC RDW RDW Differential Plt Count MPV Immature Gran % (Auto) Neut % (Auto) Lymph % (Auto) [place] % (Auto) Eos % (Auto) Baso % (Auto) Absolute Neuts (auto) Absolute Lymphs (auto) Total Counted Differential Comment Specimen Type Sample Site pH Bicarbonate Actual POC Total CO2 Base Excess O2 Saturation O2 % ABG pCO2 ABG pO2 Jefe Test Respiration Rate O2 Delivery Device EPAP IPAP Blood Gas Notified Whom Blood Gas Notified Time Sodium Potassium 3.3 L Chloride Carbon Dioxide Anion Gap BUN Creatinine Estim Creat Clear Calc Est GFR (MDRD) Af Amer Est GFR (MDRD) Non-Af BUN/Creatinine Ratio Glucose Hemoglobin A1c Calcium Phosphorus 3.7 Magnesium Troponin I Urine Color Urine Clarity Urine pH Ur Specific [place] Urine Protein Urine Glucose (UA) Urine Ketones Urine Occult Blood Urine Nitrite Urine Bilirubin Urine Urobilinogen Ur Leukocyte Esterase Urine RBC Urine WBC Ur Squamous Epith Cells Urine Bacteria Urine Mucus MRSA (PCR) POC Glucose 333 H 274 H 06/15/17 06/15/17 06/15/17 03:30 05:55 05:55 WBC 9.2 RBC 3.21 L Hgb 11.4 L Hct 34.5 L MCV 107.5 H MCH 35.5 H MCHC 33.0 RDW 14.4 RDW Differential 54.9 H Plt Count 156 MPV 11.4 Immature Gran % (Auto) 0.800 Neut % (Auto) 49.3 Lymph % (Auto) 27.1 [place] % (Auto) 22.0 H Eos % (Auto) 0.7 Baso % (Auto) 0.1 Absolute Neuts (auto) 4.5 Absolute Lymphs (auto) 2.48 Total Counted Not Reportable Differential Comment SCANNED Specimen Type Sample Site pH Bicarbonate Actual POC Total CO2 Base Excess O2 Saturation O2 % ABG pCO2 ABG pO2 Jefe Test Respiration Rate O2 Delivery Device EPAP IPAP Blood Gas Notified Whom Blood Gas Notified Time Sodium 139 Potassium 3.6 Chloride 100 Carbon Dioxide 30.0 Anion Gap 9 BUN 34 H Creatinine 1.77 H Estim Creat Clear Calc 30.19 Est GFR (MDRD) Af Amer 49 L Est GFR (MDRD) Non-Af 40 L BUN/Creatinine Ratio 19.2 Glucose 126 H Hemoglobin A1c Calcium 8.8 Phosphorus Magnesium Troponin I Urine Color Urine Clarity Urine pH Ur Specific [place] Urine Protein Urine Glucose (UA) Urine Ketones Urine Occult Blood Urine Nitrite Urine Bilirubin Urine Urobilinogen Ur Leukocyte Esterase Urine RBC Urine WBC Ur Squamous Epith Cells Urine Bacteria Urine Mucus MRSA (PCR) POC Glucose 226 H 06/15/17 05:55 WBC RBC Hgb Hct MCV MCH MCHC RDW RDW Differential Plt Count MPV Immature Gran % (Auto) Neut % (Auto) Lymph % (Auto) [place] % (Auto) Eos % (Auto) Baso % (Auto) Absolute Neuts (auto) Absolute Lymphs (auto) Total Counted Differential Comment Specimen Type Sample Site pH Bicarbonate Actual POC Total CO2 Base Excess O2 Saturation O2 % ABG pCO2 ABG pO2 Jefe Test Respiration Rate O2 Delivery Device EPAP IPAP Blood Gas Notified Whom Blood Gas Notified Time Sodium Potassium Chloride Carbon Dioxide Anion Gap BUN Creatinine Estim Creat Clear Calc Est GFR (MDRD) Af Amer Est GFR (MDRD) Non-Af BUN/Creatinine Ratio Glucose Hemoglobin A1c Calcium Phosphorus Magnesium 1.9 Troponin I Urine Color Urine Clarity Urine pH Ur Specific [place] Urine Protein Urine Glucose (UA) Urine Ketones Urine Occult Blood Urine Nitrite Urine Bilirubin Urine Urobilinogen Ur Leukocyte Esterase Urine RBC Urine WBC Ur Squamous Epith Cells Urine Bacteria Urine Mucus MRSA (PCR) POC Glucose Assessment/Plan Active and Suspected Problems (Last Reviewed 05/17/17 @ 15:28 by Trice Bowling) Acute on chronic combined systolic and diastolic heart failure (Acute) Acute renal failure superimposed on stage 3 chronic kidney disease (Acute) RECOMMENDATIONS: 1. BiPAP as needed 2. Likely okay to transition to home diuretic therapy 3. Walking oximetry prior to discharge 4. Monitor for ectopy with telemetry 5. Okay to transfer from the intensive care unit from my perspective IMPRESSIONS: 1. Acute hypoxic respiratory failure secondary to acute on chronic diastolic congestive heart failure Patient with noncompliance of Lasix therapy for the last 4-5 days leading to volume overload. This is complicated by patient's severe aortic stenosis with a last known valve area of 0.7 cm?. Patient to have corrective surgery later this month. Patient is responded very nicely to diuretic therapy. No BiPAP requirements at this time. Likely okay to transfer from the intensive care unit. Wean oxygen as tolerated. Patient should have a walking oximetry prior to discharge to ensure no desaturation with activity. However, patient can likely be transitioned back to home oral Lasix dose. 2. Acute on chronic kidney disease stage IV Likely secondary to decreased perfusion secondary to volume overload with loss of starling forces. Continue with diuresis. Electrolyte repletion as indicated. 3. Diabetes mellitus type 2 uncontrolled Patient was severely elevated glucose on presentation and does have an elevated hemoglobin A1c. Patient has been educated on a diabetic diet in the past, but initiation of insulin may be necessary. Defer to hospitalist on initiation of new medications for diabetes control. 4. Anxiety Agree with discontinuation of Xanax as this can lead to delirium. Haldol may be a better choice, but EKGs will need to be followed for QT interval. Code Visit Inpatient E&M: 02129 Subs Hosp L3
[2017-06-15] MEDS: Aspirin 81 MG TAB.CHEW PO (07:54)
[2017-06-15] MEDS: Multivitamins,Therapeutic Tablet 1 TABLET PO (07:54)
[2017-06-15] MEDS: Furosemide 40 MG Tablet PO (08:52)
--- NOTE | 2017-06-15 09:19 | PN.RENAL_ITS ---
Patient Problems: Active and Suspected Problems (Last Reviewed 05/17/17 @ 15:28 by Trice Bowling) Acute on chronic combined systolic and diastolic heart failure (Acute) Acute renal failure superimposed on stage 3 chronic kidney disease (Acute) Subjective: Patient is feeling well this morning. On NC . Maintaining good S02 Made 4 L of UOP with IV lasix No SOB. No CP - Physical Exam General: Alert, Oriented x3 HEENT: Atraumatic Oral: Moist Mucosa Neck: Supple, No JVD Lungs: Clear to auscultation, Normal air movement, No rhonchi, No wheeze Cardiovascular: Regular rate, Regular Rhythm, Normal S1, Normal S2 Abdomen: Bowel Sounds Present, Soft, Non Tender Extremities: No clubbing, No cyanosis, No edema Skin: No rashes Musculoskeletal: No Tenderness to Palpation of Joints or Extremities Lymphatic: No Cervical, Supraclavicular, or Inguinal Adenopathy Neurological: Cranial nerves II-XII grossly intact, Neuro grossly intact Psych/Mental Status: Normal Affect Vital Signs Temp Pulse Resp BP Pulse Ox 97.9 F 122 H 21 H 124/66 H 98 06/15/17 08:00 06/15/17 08:00 06/15/17 08:00 06/15/17 08:00 06/15/17 08:18 Oxygen Flow Rate 1 Oxygen Delivery Method Nasal Cannula Weight: 85.3 kg Body Mass Index (BMI) 32.8 Finger Stick Blood Glucose 202 Intake and Output for Last 24 Hours 06/13/17 06/14/17 06/15/17 23:59 23:59 23:59 Intake Total 1276 / 1276 240 / 240 Output Total 4125 / 4125 1050 / 1050 Balance -2849 / -2849 -810 / -810 Laboratory Tests Past 24 Hrs 06/14/17 06/14/17 06/15/17 12:45 23:35 05:55 WBC 9.2 RBC 3.21 L Hgb 11.4 L Hct 34.5 L MCV 107.5 H MCH 35.5 H MCHC 33.0 RDW 14.4 RDW Differential 54.9 H Plt Count 156 MPV 11.4 Immature Gran % (Auto) 0.800 Neut % (Auto) 49.3 Lymph % (Auto) 27.1 [place] % (Auto) 22.0 H Eos % (Auto) 0.7 Baso % (Auto) 0.1 Absolute Neuts (auto) 4.5 Absolute Lymphs (auto) 2.48 Total Counted Not Reportable Differential Comment SCANNED Sodium Potassium 3.3 L Chloride Carbon Dioxide Anion Gap BUN Creatinine Estim Creat Clear Calc Est GFR (MDRD) Af Amer Est GFR (MDRD) Non-Af BUN/Creatinine Ratio Glucose Calcium Phosphorus 3.7 Magnesium Urine Color Yellow Urine Clarity Clear Urine pH 6.0 Ur Specific [place] 1.010 Urine Protein Negative Urine Glucose (UA) Normal Urine Ketones Negative Urine Occult Blood 150 H Urine Nitrite Negative Urine Bilirubin Negative Urine Urobilinogen Normal Ur Leukocyte Esterase 100 H Urine RBC 5-10 SEEN Urine WBC 5-10 SEEN Ur Squamous Epith Cells 0-5 SEEN Urine Bacteria RARE Urine Mucus 0 SEEN 06/15/17 06/15/17 05:55 05:55 WBC RBC Hgb Hct MCV MCH MCHC RDW RDW Differential Plt Count MPV Immature Gran % (Auto) Neut % (Auto) Lymph % (Auto) [place] % (Auto) Eos % (Auto) Baso % (Auto) Absolute Neuts (auto) Absolute Lymphs (auto) Total Counted Differential Comment Sodium 139 Potassium 3.6 Chloride 100 Carbon Dioxide 30.0 Anion Gap 9 BUN 34 H Creatinine 1.77 H Estim Creat Clear Calc 30.19 Est GFR (MDRD) Af Amer 49 L Est GFR (MDRD) Non-Af 40 L BUN/Creatinine Ratio 19.2 Glucose 126 H Calcium 8.8 Phosphorus Magnesium 1.9 Urine Color Urine Clarity Urine pH Ur Specific [place] Urine Protein Urine Glucose (UA) Urine Ketones Urine Occult Blood Urine Nitrite Urine Bilirubin Urine Urobilinogen Ur Leukocyte Esterase Urine RBC Urine WBC Ur Squamous Epith Cells Urine Bacteria Urine Mucus POC Glucose 06/15/17 06/14/17 06/14/17 03:30 21:54 17:26 POC Glucose 226 H 274 H 333 H 06/14/17 13:24 POC Glucose 230 H Assessment/Plan Active and Suspected Problems (Last Reviewed 05/17/17 @ 15:28 by Trice Bowling) Acute on chronic combined systolic and diastolic heart failure (Acute) Acute renal failure superimposed on stage 3 chronic kidney disease (Acute) 1-Acute kidney injury on chronic kidney disease stage III. Baseline creatinine around 1.5 mg/dL. Patient presented with the CHF decompensation along with the CHRIST due to noncompliance with diuretics Cr peaked at 2 mg/dL and improved with diuresis making Cardiorenal syndrome type 1 the most probably etiology of CHRIST Cr is 1.7 mg/dL this morning. I agree with switching diuretic to home dose of lasix Keep mean arterial pressure more than 65. Avoid DIMAS inhibitor/ARB. Dose medications as per the current GFR 2-hypertension . Patient is on Norvasc 2.5 mg PO daily at home for BP control.Norvasc on hold for now. Keep mean arterial pressure more than 65 to maintain renal perfusion 3-CHF decompensation. Improving. Continue diuresis. Strict input output charting. Daily weights. Heart rate management as per the ICU/cardiology team 4-Acute hypoxemic respiratory failure due to #3. Improved. Now on NC at 2 l/m. Good oxygen saturation. O2 support as per the ICU team. 5-diabetes. Blood glucose management as per the primary team Thank you for the consult. We will continue to follow. Please do not hesitate to call me with any question or concern at my cell Gigi Temple MD
[2017-06-15] MEDS: Heparin Injection 5,000 UNITS/ML Syringe 5000 UNITS SC ×2 (10:05→21:24)
[2017-06-15] MEDS: Metoprolol Tartrate 50 MG Tablet PO ×2 (10:06→21:23)
[2017-06-15] MEDS: Glucerna Shake 120 ML LIQUID PO ×2 (10:14→16:52)
--- NOTE | 2017-06-15 11:06 | CASEMGMT ---
Intro role of CM to patient in room. He is on 2L NC, awake and able to participate in dc planning. Pt states he is independent @ home and his is able to assist. He uses cane at times, drives and is independent in ADL's. -discussed possible need for oxygen @ home. May need home oxygen testing prior to dc. -Pt has [facility] PPO- [facility] is [employer] oxygen provider. , fax . Alisha AVALOSN RN ACM
--- NOTE | 2017-06-15 11:16 | PCM.PN.HOSP ---
Patient Problems: Active and Suspected Problems (Last Reviewed 05/17/17 @ 15:28 by Trice Bowling) Acute on chronic combined systolic and diastolic heart failure (Acute) Acute renal failure superimposed on stage 3 chronic kidney disease (Acute) Subjective: Breathing better. Able to tolerate being off the BiPAP. Patient is diuresed well. Vitals/I&O's: Vital Signs Temp Pulse Resp BP Pulse Ox 37.1 C 102 H 18 85/51 L 94 06/15/17 11:00 06/15/17 11:00 06/15/17 11:00 06/15/17 11:00 06/15/17 11:00 Oxygen Flow Rate 1 Oxygen Delivery Method Nasal Cannula Weight: 85.3 kg Body Mass Index (BMI) 32.8 Finger Stick Blood Glucose 202 Intake and Output for Last 24 Hours 06/13/17 06/14/17 06/15/17 23:59 23:59 23:59 Intake Total 1276 / 1276 240 / 240 Output Total 4125 / 4125 1050 / 1050 Balance -2849 / -2849 -810 / -810 General: Alert, Cooperative, No apparent distress HEENT: Atraumatic, Normocephalic Neck: No Nodes, Thyroid Normal Size and Texture Lungs: Clear to auscultation, No rhonchi, No wheeze, Diminished Cardiovascular: Regular rate, Regular Rhythm, Normal S1, Normal S2 Abdomen: Bowel Sounds Present, Soft, Non Tender, Non-Distended Extremities: No edema, No Calf Tenderness Laboratory Results 06/14/17 12:45: Urine Color Yellow, Urine Clarity Clear, Urine pH 6.0, Ur Specific [place] 1.010, Urine Protein Negative, Urine Glucose (UA) Normal, Urine Ketones Negative, Urine Occult Blood 150 H, Urine Nitrite Negative, Urine Bilirubin Negative, Urine Urobilinogen Normal, Ur Leukocyte Esterase 100 H, Urine RBC 5-10 SEEN, Urine WBC 5-10 SEEN, Ur Squamous Epith Cells 0-5 SEEN, Urine Bacteria RARE, Urine Mucus 0 SEEN 06/14/17 13:24: POC Glucose 230 H 06/14/17 17:26: POC Glucose 333 H 06/14/17 21:54: POC Glucose 274 H 06/14/17 23:35: Potassium 3.3 L, Phosphorus 3.7 06/15/17 03:30: POC Glucose 226 H 06/15/17 05:55: WBC 9.2, RBC 3.21 L, Hgb 11.4 L, Hct 34.5 L, MCV 107.5 H, MCH 35.5 H, MCHC 33.0, RDW 14.4, RDW Differential 54.9 H, Plt Count 156, MPV 11.4, Immature Gran % (Auto) 0.800, Neut % (Auto) 49.3, Lymph % (Auto) 27.1, [place] % (Auto) 22.0 H, Eos % (Auto) 0.7, Baso % (Auto) 0.1, Absolute Neuts (auto) 4.5, Absolute Lymphs (auto) 2.48, Total Counted Not Reportable, Differential Comment SCANNED 06/15/17 05:55: Sodium 139, Potassium 3.6, Chloride 100, Carbon Dioxide 30.0, Anion Gap 9, BUN 34 H, Creatinine 1.77 H, Estim Creat Clear Calc 30.19, Est GFR (MDRD) Af Amer 49 L, Est GFR (MDRD) Non-Af 40 L, BUN/Creatinine Ratio 19.2, Glucose 126 H, Calcium 8.8 06/15/17 05:55: Magnesium 1.9 Current Medications Albuterol Sulfate (Ventolin Aerosols) 2.5 mg INHALATION Q2H PRN PRN PRN Reason: SHORTNESS OF BREATH Albuterol/Ipratropium (Duoneb) 3 ml INHALATION Q4HWA.RT PRN PRN Reason: WHEEZING Aspirin (Aspirin, Baby) 81 mg PO DAILY@0800 [facility] Last Admin: 06/15/17 07:54 Dose: 81 mg Dextrose (D50w Syringe) 0 gm IV X1 PRN; Protocol PRN Reason: Hypoglycemia Furosemide (Lasix) 40 mg PO DAILY [facility] Last Admin: 06/15/17 08:52 Dose: 40 mg Glucagon () 1 mg IM .X1 PRN PRN Reason: Hypoglycemia Heparin Sodium (Porcine) () 5,000 units SC BID [facility] Last Admin: 06/15/17 10:05 Dose: 5,000 units Insulin Aspart (Novolog Flexpen (Bkc)) 0 units SC ACHS ZOHREH PRN Reason: Protocol Metoprolol Tartrate (Lopressor (Beta Severo)) 50 mg PO BID [facility] Last Admin: 06/15/17 10:06 Dose: 50 mg Multivitamins (Multivitamin) 1 tablet PO DAILYCM [facility] Last Admin: 06/15/17 07:54 Dose: 1 tablet Nutritional Formula (Lactose Free) (Glucerna Shake) 120 ml PO 4X/DAY [facility] Last Admin: 06/15/17 10:14 Dose: 120 ml Sodium Chloride () 5 - 30 ml IV UD PRN PRN Reason: SALINE FLUSH Last Admin: 06/15/17 05:54 Dose: 20 ml Assessment/Plan Active and Suspected Problems (Last Reviewed 05/17/17 @ 15:28 by Trice Bowling) Acute on chronic combined systolic and diastolic heart failure (Acute) Acute renal failure superimposed on stage 3 chronic kidney disease (Acute) 1. Acute hypoxic and hypercapnic respiratory failure Secondary to acute exacerbation of with reduced ejection fraction with an EF of 45-50% on echocardiogram from 05/03/2017. Tolerating being off of BiPAP. 2. Acute heart failure with reduced ejection fraction Ejection fraction of 45-50% from echocardiogram from 05/03/2017. Also complicated by a severe aortic stenosis Patient had stopped taking his Lasix because he did feel that it was helping him 4 days prior to this admission. May not been the ultimate cause of his CHF exacerbation this time but certainly did not help. Cardiology consult Change Lasix over to oral. Was on metoprolol tartrate as outpatient and that has been continued. Not on an DIMAS inhibitor nor angiotensin receptor severo given his acute on chronic kidney disease. 3. Severe aortic stenosis Complicating care in regards to the development of the CHF. Cardiology on consultation Patient was to follow-up with Dr. Umanzor, at [facility] for evaluation for valve replacement. 4. Acute kidney injury Creatinine was 2.08 on admission and it is improved today to 1.83. Baseline creatinine is 1.55. Improving patient appears to have chronic kidney disease stage IV. Nephrology on consultation. No need for renal replacement therapy. I would suspect this may relate with hypoperfusion given the patient's CHF but will wait further input from the specialist. Will hold off on additional Lasix until given the okay by the specialist at this time. 5. Diabetes mellitus type 2, uncontrolled. Patient was not in diabetic ketoacidosis nor in hyperosmolar nonketotic state. Started on Levemir, currently n.p.o. but once able to take diet and we can put him on prandial NovoLog plus sliding scale. 6. Anxiety Likely precipitated by the patient's respiratory failure. Given the patient's tenuous respiratory status and actually DC the Xanax. Apparently helped him with his anxiety last night but I be concerned for sedation and possible paradoxical delirium with it, given patient's age. 7. DVT prophylaxis with subcu heparin. Code Visit Inpatient E&M: 20981 Subs Hosp L2
[2017-06-15 11:40] LABS: Bedside Glucose 152 mg/dL (70-110)
[2017-06-15 12:16] LABS: Bedside Glucose 339 mg/dL (70-110)
[2017-06-15 15:56] LABS: Bedside Glucose 141 mg/dL (70-110)
--- NOTE | 2017-06-15 16:05 | NURSING ---
report called to Jennifer GUNNER'S MATE
--- NOTE | 2017-06-15 16:47 | NURSING ---
to U [address] , ARTICULATION OFFICER in attendance
[2017-06-15 22:36] LABS: Bedside Glucose 314 mg/dL (70-110)
[2017-06-16] VITALS (8 sets, daily range): BP systolic 93–107; BP diastolic 68–71; PULSE 88–95; RESP 16–20; TEMP 36.8–37.1; O2SAT 91–98
[2017-06-16 07:06] LABS: Bedside Glucose 202 mg/dL (70-110)
--- NOTE | 2017-06-16 07:15 | PCM.PROGNOTE ---
Patient Problems: Active and Suspected Problems (Last Reviewed 05/17/17 @ 15:28 by Trice Bowling) Acute on chronic combined systolic and diastolic heart failure (Acute) Acute renal failure superimposed on stage 3 chronic kidney disease (Acute) Subjective: The patient was seen and examined at the bedside this morning. Events from the last 24 hours have been reviewed. The patient is currently afebrile, hemodynamically stable and maintaining appropriate oxygen saturations on minimal supplemental oxygen. No overnight events were identified. Objective: The patient's most recent lab work, culture data and imaging studies have all been personally reviewed. - Physical Exam General: Alert, Cooperative, No apparent distress HEENT: Atraumatic, PERRLA, Normocephalic Oral: Moist Mucosa, No Gingival or Mucosal Lesions/ Ulcerations Neck: Supple, No Nodes, Trachea Midline Lungs: No rhonchi, No wheeze, No rales, Diminished Cardiovascular: Regular rate, Regular Rhythm, Normal S1, Normal S2, Murmur Abdomen: Bowel Sounds Present, Soft, Non Tender Extremities: No clubbing, No cyanosis, Edema Skin: No rashes, No breakdown Musculoskeletal: No Tenderness to Palpation of Joints or Extremities, No Muscle Wasting Lymphatic: No Cervical, Supraclavicular, or Inguinal Adenopathy Neurological: Neuro grossly intact Psych/Mental Status: Normal Affect, Appropriate Vital Signs Temp Pulse Resp BP Pulse Ox 98.7 F 89 20 H 93/68 97 06/16/17 03:15 06/16/17 03:15 06/16/17 03:15 06/16/17 03:15 06/16/17 03:15 Oxygen Flow Rate 1 Oxygen Delivery Method Nasal Cannula Weight: 188 lb 0.869 oz Body Mass Index (BMI) 32.8 Finger Stick Blood Glucose 202 Intake and Output for Last 24 Hours 06/14/17 06/15/17 06/16/17 23:59 23:59 23:59 Intake Total 1276 / 1276 940 / 940 Output Total 4125 / 4125 3205 / 3205 300 / 300 Balance -2849 / -2849 -2265 / -2265 -300 / -300 POC Glucose 06/16/17 06/15/17 06/15/17 06:51 21:13 15:50 POC Glucose 202 H 314 H 141 H 06/15/17 06/15/17 11:43 07:51 POC Glucose 339 H 152 H Labs (Last 48 Hours) 06/14/17 06/14/17 06/14/17 05:00 12:45 13:24 WBC RBC Hgb Hct MCV MCH MCHC RDW RDW Differential Plt Count MPV Immature Gran % (Auto) Neut % (Auto) Lymph % (Auto) [place] % (Auto) Eos % (Auto) Baso % (Auto) Absolute Neuts (auto) Absolute Lymphs (auto) Total Counted Differential Comment Sodium Potassium Chloride Carbon Dioxide Anion Gap BUN Creatinine Estim Creat Clear Calc Est GFR (MDRD) Af Amer Est GFR (MDRD) Non-Af BUN/Creatinine Ratio Glucose Hemoglobin A1c 9.0 H Calcium Phosphorus Magnesium Urine Color Yellow Urine Clarity Clear Urine pH 6.0 Ur Specific [place] 1.010 Urine Protein Negative Urine Glucose (UA) Normal Urine Ketones Negative Urine Occult Blood 150 H Urine Nitrite Negative Urine Bilirubin Negative Urine Urobilinogen Normal Ur Leukocyte Esterase 100 H Urine RBC 5-10 SEEN Urine WBC 5-10 SEEN Ur Squamous Epith Cells 0-5 SEEN Urine Bacteria RARE Urine Mucus 0 SEEN POC Glucose 230 H 06/14/17 06/14/17 06/14/17 17:26 21:54 23:35 WBC RBC Hgb Hct MCV MCH MCHC RDW RDW Differential Plt Count MPV Immature Gran % (Auto) Neut % (Auto) Lymph % (Auto) [place] % (Auto) Eos % (Auto) Baso % (Auto) Absolute Neuts (auto) Absolute Lymphs (auto) Total Counted Differential Comment Sodium Potassium 3.3 L Chloride Carbon Dioxide Anion Gap BUN Creatinine Estim Creat Clear Calc Est GFR (MDRD) Af Amer Est GFR (MDRD) Non-Af BUN/Creatinine Ratio Glucose Hemoglobin A1c Calcium Phosphorus 3.7 Magnesium Urine Color Urine Clarity Urine pH Ur Specific [place] Urine Protein Urine Glucose (UA) Urine Ketones Urine Occult Blood Urine Nitrite Urine Bilirubin Urine Urobilinogen Ur Leukocyte Esterase Urine RBC Urine WBC Ur Squamous Epith Cells Urine Bacteria Urine Mucus POC Glucose 333 H 274 H 06/15/17 06/15/17 06/15/17 03:30 05:55 05:55 WBC 9.2 RBC 3.21 L Hgb 11.4 L Hct 34.5 L MCV 107.5 H MCH 35.5 H MCHC 33.0 RDW 14.4 RDW Differential 54.9 H Plt Count 156 MPV 11.4 Immature Gran % (Auto) 0.800 Neut % (Auto) 49.3 Lymph % (Auto) 27.1 [place] % (Auto) 22.0 H Eos % (Auto) 0.7 Baso % (Auto) 0.1 Absolute Neuts (auto) 4.5 Absolute Lymphs (auto) 2.48 Total Counted Not Reportable Differential Comment SCANNED Sodium 139 Potassium 3.6 Chloride 100 Carbon Dioxide 30.0 Anion Gap 9 BUN 34 H Creatinine 1.77 H Estim Creat Clear Calc 30.19 Est GFR (MDRD) Af Amer 49 L Est GFR (MDRD) Non-Af 40 L BUN/Creatinine Ratio 19.2 Glucose 126 H Hemoglobin A1c Calcium 8.8 Phosphorus Magnesium Urine Color Urine Clarity Urine pH Ur Specific [place] Urine Protein Urine Glucose (UA) Urine Ketones Urine Occult Blood Urine Nitrite Urine Bilirubin Urine Urobilinogen Ur Leukocyte Esterase Urine RBC Urine WBC Ur Squamous Epith Cells Urine Bacteria Urine Mucus POC Glucose 226 H 06/15/17 06/15/17 06/15/17 05:55 07:51 11:43 WBC RBC Hgb Hct MCV MCH MCHC RDW RDW Differential Plt Count MPV Immature Gran % (Auto) Neut % (Auto) Lymph % (Auto) [place] % (Auto) Eos % (Auto) Baso % (Auto) Absolute Neuts (auto) Absolute Lymphs (auto) Total Counted Differential Comment Sodium Potassium Chloride Carbon Dioxide Anion Gap BUN Creatinine Estim Creat Clear Calc Est GFR (MDRD) Af Amer Est GFR (MDRD) Non-Af BUN/Creatinine Ratio Glucose Hemoglobin A1c Calcium Phosphorus Magnesium 1.9 Urine Color Urine Clarity Urine pH Ur Specific [place] Urine Protein Urine Glucose (UA) Urine Ketones Urine Occult Blood Urine Nitrite Urine Bilirubin Urine Urobilinogen Ur Leukocyte Esterase Urine RBC Urine WBC Ur Squamous Epith Cells Urine Bacteria Urine Mucus POC Glucose 152 H 339 H 06/15/17 06/15/17 06/16/17 15:50 21:13 06:51 WBC RBC Hgb Hct MCV MCH MCHC RDW RDW Differential Plt Count MPV Immature Gran % (Auto) Neut % (Auto) Lymph % (Auto) [place] % (Auto) Eos % (Auto) Baso % (Auto) Absolute Neuts (auto) Absolute Lymphs (auto) Total Counted Differential Comment Sodium Potassium Chloride Carbon Dioxide Anion Gap BUN Creatinine Estim Creat Clear Calc Est GFR (MDRD) Af Amer Est GFR (MDRD) Non-Af BUN/Creatinine Ratio Glucose Hemoglobin A1c Calcium Phosphorus Magnesium Urine Color Urine Clarity Urine pH Ur Specific [place] Urine Protein Urine Glucose (UA) Urine Ketones Urine Occult Blood Urine Nitrite Urine Bilirubin Urine Urobilinogen Ur Leukocyte Esterase Urine RBC Urine WBC Ur Squamous Epith Cells Urine Bacteria Urine Mucus POC Glucose 141 H 314 H 202 H Clinical Impression(s) from Imaging Studies Chest X-Ray 06/13/17 20:29 IMPRESSION: Stable exam. Electronically Signed: Suraj Ross, at 22:00 EST Tel , Service support , Chest X-Ray 06/13/17 23:33 IMPRESSION: Stable cardiomegaly. Worsening of right hilar prominence, possibly vascular. Consider further evaluation with CT. Pulmonary vascular congestion and small pleural effusions at the lung bases with adjacent atelectasis/consolidation, superimposed pneumonia cannot be excluded. at 0019 Reported and signed by: Roshni Franco MD Electronically Signed: Roshni Franco MD at 23:18 EST Tel , Service support , Assessment/Plan Active and Suspected Problems (Last Reviewed 05/17/17 @ 15:28 by Trice Bowling) Acute on chronic combined systolic and diastolic heart failure (Acute) Acute renal failure superimposed on stage 3 chronic kidney disease (Acute) RECOMMENDATIONS: 1. Continue to wean supplemental oxygen as tolerated 2. Continue diuretic regimen 3. Walking oximetry prior to discharge 4. Monitor for ectopy with telemetry 5. Encourage incentive spirometer use and mobilize patient as tolerated. IMPRESSIONS: 1. Acute hypoxic respiratory failure secondary to acute on chronic diastolic congestive heart failure Secondary to medication noncompliance. This is complicated by patient's severe aortic stenosis with a last known valve area of 0.7 cm?. Patient to have corrective surgery later this month. Patient has responded very nicely to diuretic therapy. No BiPAP requirements at this time. Wean oxygen as tolerated. Patient should have a walking oximetry prior to discharge to ensure no desaturation with activity. Continue home diuretic regimen. 2. Acute on chronic kidney disease stage IV Likely secondary to cardiorenal syndrome. Nephrology is following. Continue current diuretic regimen as noted above. 3. Diabetes mellitus type 2 uncontrolled Patient was severely elevated glucose on presentation and does have an elevated hemoglobin A1c. Patient has been educated on a diabetic diet in the past. Continue current insulin regimen. This note was generated with [employer] dictation software. It may contain incorrect words, spelling, and punctuation that were not noted in checking the note before signing. As the patient is without any further ICU needs, will sign off from a critical care perspective. Please call with any additional questions. Code Visit Inpatient E&M: 61477 Subs Hosp L2
[2017-06-16] MEDS: Multivitamins,Therapeutic Tablet 1 TABLET PO (08:16)
[2017-06-16] MEDS: Aspirin 81 MG TAB.CHEW PO (08:17)
[2017-06-16 09:13] LABS: Anion Gap 10 (5-15); BUN 35 mg/dL (7-18); BUN/Creat Ratio 20.2 RATIO (10-20); Calcium,Total 9.1 mg/dL (8.5-10.1); Chloride 98 mmol/L (98-107); Creatinine, Serum 1.73 mg/dL (0.70-1.30); EST Glomerular Filtration Rate 41 mL/min (>60); Est Glom Filt Rate - Afr Amer 50 mL/min (>60); Estimated Creatinine Clearance 30.89 ml/min; Glucose 222 mg/dL (70-110); Potassium 3.8 mmol/L (3.5-5.1); Sodium Level 137 mmol/L (136-145)
--- NOTE | 2017-06-16 09:22 | NURSING ---
Out patient orders for pre op valve replacement discussed with Dr. Lozoya. Dr. Lozoya spoke with Dr. Carrillo regarding when testing to be completed. Patient will have to come back to hospital for outpatient testing. Orders to be sent with patient at discharge.
[2017-06-16] MEDS: Glucerna Shake 120 ML LIQUID PO (10:03)
[2017-06-16] MEDS: Heparin Injection 5,000 UNITS/ML Syringe 5000 UNITS SC (10:04)
[2017-06-16] MEDS: Furosemide 40 MG Tablet PO (10:04)
[2017-06-16] MEDS: Metoprolol Tartrate 50 MG Tablet PO (10:04)
--- NOTE | 2017-06-16 10:14 | PCM.PN.HOSP ---
Patient Problems: Active and Suspected Problems (Last Reviewed 05/17/17 @ 15:28 by Trice Bowling) Acute on chronic combined systolic and diastolic heart failure (Acute) Acute renal failure superimposed on stage 3 chronic kidney disease (Acute) Subjective: Breathing well. States that he had been previously prescribed a medication for his diabetes, that medication appears to be Tradjenta, but he is unable to afford it given its high cost, apparently was $300 per month. The patient has not been taking anything for his diabetes. Patient's hemoglobin A1c is 9. Sugars have ranged into 300s just with a sliding scale since he has been here. Vitals/I&O's: Vital Signs Temp Pulse Resp BP Pulse Ox 36.8 C 95 16 107/71 91 06/16/17 08:03 06/16/17 10:04 06/16/17 08:03 06/16/17 08:03 06/16/17 08:11 Oxygen Flow Rate 1 Oxygen Delivery Method Nasal Cannula Weight: 85.3 kg Body Mass Index (BMI) 32.8 Finger Stick Blood Glucose 202 Intake and Output for Last 24 Hours 06/14/17 06/15/17 06/16/17 23:59 23:59 23:59 Intake Total 1276 / 1276 940 / 940 Output Total 4125 / 4125 3205 / 3205 300 / 300 Balance -2849 / -2849 -2265 / -2265 -300 / -300 General: Alert, Cooperative, No apparent distress HEENT: Atraumatic, Normocephalic Neck: No JVD, No Nodes, Thyroid Normal Size and Texture Lungs: Clear to auscultation, Diminished Cardiovascular: Regular rate, Regular Rhythm, Normal S1, Normal S2 Abdomen: Bowel Sounds Present, Soft, Non Tender, Non-Distended Extremities: No edema, No Calf Tenderness Laboratory Results 06/15/17 07:51: POC Glucose 152 H 06/15/17 11:43: POC Glucose 339 H 06/15/17 15:50: POC Glucose 141 H 06/15/17 21:13: POC Glucose 314 H 06/16/17 06:51: POC Glucose 202 H 06/16/17 08:30: Sodium 137, Potassium 3.8, Chloride 98, Carbon Dioxide 29.0, Anion Gap 10, BUN 35 H, Creatinine 1.73 H, Estim Creat Clear Calc 30.89, Est GFR (MDRD) Af Amer 50 L, Est GFR (MDRD) Non-Af 41 L, BUN/Creatinine Ratio 20.2 H, Glucose 222 H, Calcium 9.1 Current Medications Albuterol Sulfate (Ventolin Aerosols) 2.5 mg INHALATION Q2H PRN PRN PRN Reason: SHORTNESS OF BREATH Albuterol/Ipratropium (Duoneb) 3 ml INHALATION Q4HWA.RT PRN PRN Reason: WHEEZING Aspirin (Aspirin, Baby) 81 mg PO DAILY@0800 [facility] Last Admin: 06/16/17 08:17 Dose: 81 mg Dextrose (D50w Syringe) 0 gm IV X1 PRN; Protocol PRN Reason: Hypoglycemia Furosemide (Lasix) 40 mg PO DAILY [facility] Last Admin: 06/16/17 10:04 Dose: 40 mg Glucagon () 1 mg IM .X1 PRN PRN Reason: Hypoglycemia Heparin Sodium (Porcine) () 5,000 units SC BID [facility] Last Admin: 06/16/17 10:04 Dose: 5,000 units Insulin Aspart (Novolog Flexpen (Bkc)) 0 units SC ACHS ZOHREH PRN Reason: Protocol Last Admin: 06/16/17 08:17 Dose: 3 units Metoprolol Tartrate (Lopressor (Beta Severo)) 50 mg PO BID [facility] Last Admin: 06/16/17 10:04 Dose: 50 mg Multivitamins (Multivitamin) 1 tablet PO DAILYCM [facility] Last Admin: 06/16/17 08:16 Dose: 1 tablet Nutritional Formula (Lactose Free) (Glucerna Shake) 120 ml PO 4X/DAY [facility] Last Admin: 06/16/17 10:03 Dose: 120 ml Sodium Chloride () 5 - 30 ml IV UD PRN PRN Reason: SALINE FLUSH Last Admin: 06/15/17 05:54 Dose: 20 ml Assessment/Plan Active and Suspected Problems (Last Reviewed 05/17/17 @ 15:28 by Trice Bowling) Acute on chronic combined systolic and diastolic heart failure (Acute) Acute renal failure superimposed on stage 3 chronic kidney disease (Acute) 1. Acute hypoxic and hypercapnic respiratory failure Secondary to acute exacerbation of with reduced ejection fraction with an EF of 45-50% on echocardiogram from 05/03/2017. Tolerating being off of BiPAP. 2. Acute heart failure with reduced ejection fraction Ejection fraction of 45-50% from echocardiogram from 05/03/2017. Also complicated by a severe aortic stenosis Patient had stopped taking his Lasix because he did feel that it was helping him 4 days prior to this admission. May not been the ultimate cause of his CHF exacerbation this time but certainly did not help. Cardiology consult Change Lasix over to oral. Was on metoprolol tartrate as outpatient and that has been continued. Not on an DIMAS inhibitor nor angiotensin receptor severo given his acute on chronic kidney disease. 3. Severe aortic stenosis Complicating care in regards to the development of the CHF. Cardiology on consultation Patient was to follow-up with Dr. Umanzor, at [facility] for evaluation for valve replacement. Patient had much orders from Dr. Avendaño office placed on the chart to be done before discharge. I discussed the case with Dr. Carrillo, so that will get the room air ABG but the rest of the testing would have to be done on outpatient basis. Patient is scheduled to see cardiothoracic surgery and have his valve replaced on the . It is unclear if any kind and delay will in his testing will delay his valve replacement or not. He did appear to be on the orders that these were placed on the . Patient was admitted on the and I was not notified of any disorders until today. That was 10 days after the initial orders were placed. Once again these will have to be done on an outpatient basis. But we will get a room air ABG. 4. Acute kidney injury Creatinine was 2.08 on admission and it is improved today to 1.73. Baseline creatinine is 1.55. Improving patient appears to have chronic kidney disease stage IV. Nephrology on consultation. No need for renal replacement therapy. I would suspect this may relate with hypoperfusion given the patient's CHF but will wait further input from the specialist. Will hold off on additional Lasix until given the okay by the specialist at this time. 5. Diabetes mellitus type 2, uncontrolled. Patient was not in diabetic ketoacidosis nor in hyperosmolar nonketotic state. Given the patient's heart failure a lot of oral medications are contraindicated. I feel the patient would benefit from Levemir. I feel that the ease of use being and only one time injection would be of benefit for him. Compliance, unfortunately, will be an issue. 6. Anxiety Likely precipitated by the patient's respiratory failure. Given the patient's tenuous respiratory status and actually DC the Xanax. Apparently helped him with his anxiety last night but I be concerned for sedation and possible paradoxical delirium with it, given patient's age. 7. DVT prophylaxis with subcu heparin. Patient will be discharged today. Patient will have an amatory pulse ox to see if he will need oxygen. Patient will have a room air ABG but this is slight help expedite his valve replacement surgery workup. Once again, the additional studies, including VQ scan, CT chest, carotid ultrasounds; will be done on outpatient basis as to be arranged through his medical staff director.
--- NOTE | 2017-06-16 10:19 | PN_ITS ---
Patient Problems: Active and Suspected Problems (Last Reviewed 05/17/17 @ 15:28 by Trice Bowling) Acute on chronic combined systolic and diastolic heart failure (Acute) Acute renal failure superimposed on stage 3 chronic kidney disease (Acute) Subjective: Breathing well. States that he had been previously prescribed a medication for his diabetes, that medication appears to be Tradjenta, but he is unable to afford it given its high cost, apparently was $300 per month. The patient has not been taking anything for his diabetes. Patient's hemoglobin A1c is 9. Sugars have ranged into 300s just with a sliding scale since he has been here. Vitals/I&O's: Vital Signs Temp Pulse Resp BP Pulse Ox 36.8 C 95 16 107/71 91 06/16/17 08:03 06/16/17 10:04 06/16/17 08:03 06/16/17 08:03 06/16/17 08:11 Oxygen Flow Rate 1 Oxygen Delivery Method Nasal Cannula Weight: 85.3 kg Body Mass Index (BMI) 32.8 Finger Stick Blood Glucose 202 Intake and Output for Last 24 Hours 06/14/17 06/15/17 06/16/17 23:59 23:59 23:59 Intake Total 1276 / 1276 940 / 940 Output Total 4125 / 4125 3205 / 3205 300 / 300 Balance -2849 / -2849 -2265 / -2265 -300 / -300 General: Alert, Cooperative, No apparent distress HEENT: Atraumatic, Normocephalic Neck: No JVD, No Nodes, Thyroid Normal Size and Texture Lungs: Clear to auscultation, Diminished Cardiovascular: Regular rate, Regular Rhythm, Normal S1, Normal S2 Abdomen: Bowel Sounds Present, Soft, Non Tender, Non-Distended Extremities: No edema, No Calf Tenderness Laboratory Results 06/15/17 07:51: POC Glucose 152 H 06/15/17 11:43: POC Glucose 339 H 06/15/17 15:50: POC Glucose 141 H 06/15/17 21:13: POC Glucose 314 H 06/16/17 06:51: POC Glucose 202 H 06/16/17 08:30: Sodium 137, Potassium 3.8, Chloride 98, Carbon Dioxide 29.0, Anion Gap 10, BUN 35 H, Creatinine 1.73 H, Estim Creat Clear Calc 30.89, Est GFR (MDRD) Af Amer 50 L, Est GFR (MDRD) Non-Af 41 L, BUN/Creatinine Ratio 20.2 H , Glucose 222 H, Calcium 9.1 Current Medications Albuterol Sulfate (Ventolin Aerosols) 2.5 mg INHALATION Q2H PRN PRN PRN Reason: SHORTNESS OF BREATH Albuterol/Ipratropium (Duoneb) 3 ml INHALATION Q4HWA.RT PRN PRN Reason: WHEEZING Aspirin (Aspirin, Baby) 81 mg PO DAILY@0800 [facility] Last Admin: 06/16/17 08:17 Dose: 81 mg Dextrose (D50w Syringe) 0 gm IV X1 PRN; Protocol PRN Reason: Hypoglycemia Furosemide (Lasix) 40 mg PO DAILY [facility] Last Admin: 06/16/17 10:04 Dose: 40 mg Glucagon () 1 mg IM .X1 PRN PRN Reason: Hypoglycemia Heparin Sodium (Porcine) () 5,000 units SC BID [facility] Last Admin: 06/16/17 10:04 Dose: 5,000 units Insulin Aspart (Novolog Flexpen (Bkc)) 0 units SC ACHS ZOHREH PRN Reason: Protocol Last Admin: 06/16/17 08:17 Dose: 3 units Metoprolol Tartrate (Lopressor (Beta Severo)) 50 mg PO BID [facility] Last Admin: 06/16/17 10:04 Dose: 50 mg Multivitamins (Multivitamin) 1 tablet PO DAILYCM [facility] Last Admin: 06/16/17 08:16 Dose: 1 tablet Nutritional Formula (Lactose Free) (Glucerna Shake) 120 ml PO 4X/DAY [facility] Last Admin: 06/16/17 10:03 Dose: 120 ml Sodium Chloride () 5 - 30 ml IV UD PRN PRN Reason: SALINE FLUSH Last Admin: 06/15/17 05:54 Dose: 20 ml Assessment/Plan Active and Suspected Problems (Last Reviewed 05/17/17 @ 15:28 by Trice Bowling) Acute on chronic combined systolic and diastolic heart failure (Acute) Acute renal failure superimposed on stage 3 chronic kidney disease (Acute) 1. Acute hypoxic and hypercapnic respiratory failure Secondary to acute exacerbation of with reduced ejection fraction with an EF of 45-50% on echocardiogram from 05/03/2017. Tolerating being off of BiPAP. 2. Acute heart failure with reduced ejection fraction Ejection fraction of 45-50% from echocardiogram from 05/03/2017. Also complicated by a severe aortic stenosis Patient had stopped taking his Lasix because he did feel that it was helping him 4 days prior to this admission. May not been the ultimate cause of his CHF exacerbation this time but certainly did not help. Cardiology consult Change Lasix over to oral. Was on metoprolol tartrate as outpatient and that has been continued. Not on an DIMAS inhibitor nor angiotensin receptor severo given his acute on chronic kidney disease. 3. Severe aortic stenosis Complicating care in regards to the development of the CHF. Cardiology on consultation Patient was to follow-up with Dr. Umanzor, at [facility] for evaluation for valve replacement. Patient had much orders from Dr. Avendaño office placed on the chart to be done before discharge. I discussed the case with Dr. Carrillo, so that will get the room air ABG but the rest of the testing would have to be done on outpatient basis. Patient is scheduled to see cardiothoracic surgery and have his valve replaced on the . It is unclear if any kind and delay will in his testing will delay his valve replacement or not. He did appear to be on the orders that these were placed on the . Patient was admitted on the and I was not notified of any disorders until today. That was 10 days after the initial orders were placed. Once again these will have to be done on an outpatient basis. But we will get a room air ABG. 4. Acute kidney injury Creatinine was 2.08 on admission and it is improved today to 1.73. Baseline creatinine is 1.55. Improving patient appears to have chronic kidney disease stage IV. Nephrology on consultation. No need for renal replacement therapy. I would suspect this may relate with hypoperfusion given the patient's CHF but will wait further input from the specialist. Will hold off on additional Lasix until given the okay by the specialist at this time. 5. Diabetes mellitus type 2, uncontrolled. Patient was not in diabetic ketoacidosis nor in hyperosmolar nonketotic state. Given the patient's heart failure a lot of oral medications are contraindicated. I feel the patient would benefit from Levemir. I feel that the ease of use being and only one time injection would be of benefit for him. Compliance, unfortunately, will be an issue. 6. Anxiety Likely precipitated by the patient's respiratory failure. Given the patient's tenuous respiratory status and actually DC the Xanax. Apparently helped him with his anxiety last night but I be concerned for sedation and possible paradoxical delirium with it, given patient's age. 7. DVT prophylaxis with subcu heparin. Patient will be discharged today. Patient will have an amatory pulse ox to see if he will need oxygen. Patient will have a room air ABG but this is slight help expedite his valve replacement surgery workup. Once again, the additional studies, including VQ scan, CT chest, carotid ultrasounds; will be done on outpatient basis as to be arranged through his butter printer.
--- NOTE | 2017-06-16 10:22 | PCM.DC ---
- Discharge Diagnoses Current Active Problems: Current Active and Chronic Problems (Last Reviewed 05/17/17 @ 15:28 by Trice Bowling) Acute on chronic combined systolic and diastolic heart failure (Acute) Type 2 diabetes mellitus with hyperglycemia (Chronic) 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) Acute renal failure superimposed on stage 3 chronic kidney disease (Acute) You will use the following diet at home:: Calorie/Carbohydrate Controlled (specify 1200, 1400, etc) - 1800 cc/day, Fluid restricted (specify 2000 mls, 1500 mls) - 2000 cc/day Your food should be the consistency of: Regular Your liquids should be the consistency of: Regular/Thin Discharge Activity: Return to Normal Activity Call your doctor if you observe: Fever of 101 or Higher, Shortness of breath Additional Instructions: Daily weights. Notify physician of weight gain 2 pounds in 1 day or 3 pounds in 1 week. Allergies/Adverse Reactions: Allergies No Known Allergies Allergy (Verified 06/13/17 19:49) Medications to take at Discharge Metoprolol Tartrate [Lopressor (beta poornima)] 50 mg PO BID 07/02/14 Multivitamins,Therapeutic [Multivitamin] 1 tab PO DAILY 07/02/14 Aspirin [Aspirin, Baby] 81 mg PO DAILY@0800 tab.chew 05/06/17 handicap placard #1 ea 06/01/17 Furosemide 40 mg PO DAILY 06/13/17 Albuterol Inhaler [Ventolin Hfa] 1 - 2 puff INHALATION Q4H PRN PRN #1 inhaler 06/16/17 Insulin Detemir [Levemir (BKC)] 10 units SC DAILY #1 flexpen 06/16/17 Lancets/Blood Glucose Strips [Fora [id number] Strp-Lnct] 1 ea TIDCM #100 combo..pkg 06/16/17 [place], Insulin Disposable [Novofine Autocover 30G Needle] 1 ea MISCELL. UD #1 box 06/16/17 The following prescriptions were given: Albuterol Inhaler [Ventolin Hfa] 1 - 2 puff INHALATION Q4H PRN PRN #1 inhaler PRN Reason: Shortness Of Breath Insulin Detemir [Levemir (BKC)] 10 units SC DAILY #1 flexpen [place], Insulin Disposable [Novofine Autocover 30G Needle] 1 ea MISCELL. UD #1 box Lancets/Blood Glucose Strips [Fora [id number] Strp-Lnct] 1 ea TIDCM #100 combo..pkg Primary Care Physician: Dusty Almanza MD [Primary Care Provider] - Within 1 Week Please Follow Up With: Ronnell Benavides When: June 26 Please Follow Up With: Pauline Higgins MD When: 1 month Proposed Discharge Date: 06/16/17
--- NOTE | 2017-06-16 10:25 | DCINST_ITS ---
- Discharge Diagnoses Current Active Problems: Current Active and Chronic Problems (Last Reviewed 05/17/17 @ 15:28 by Trice Bowling) Acute on chronic combined systolic and diastolic heart failure (Acute) Type 2 diabetes mellitus with hyperglycemia (Chronic) 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) Acute renal failure superimposed on stage 3 chronic kidney disease (Acute) You will use the following diet at home:: Calorie/Carbohydrate Controlled ( specify 1200, 1400, etc) - 1800 cc/day, Fluid restricted (specify 2000 mls, 1500 mls) - 2000 cc/day Your food should be the consistency of: Regular Your liquids should be the consistency of: Regular/Thin Discharge Activity: Return to Normal Activity Call your doctor if you observe: Fever of 101 or Higher, Shortness of breath Additional Instructions: Daily weights. Notify physician of weight gain 2 pounds in 1 day or 3 pounds in 1 week. Allergies/Adverse Reactions: Allergies No Known Allergies Allergy (Verified 06/13/17 19:49) Medications to take at Discharge Metoprolol Tartrate [Lopressor (beta poornima)] 50 mg PO BID 07/02/14 Multivitamins,Therapeutic [Multivitamin] 1 tab PO DAILY 07/02/14 Aspirin [Aspirin, Baby] 81 mg PO DAILY@0800 tab.chew 05/06/17 handicap placard #1 ea 06/01/17 Furosemide 40 mg PO DAILY 06/13/17 Albuterol Inhaler [Ventolin Hfa] 1 - 2 puff INHALATION Q4H PRN PRN #1 inhaler Insulin Detemir [Levemir (BKC)] 10 units SC DAILY #1 flexpen 06/16/17 Lancets/Blood Glucose Strips [Fora [id number] Strp-Lnct] 1 ea TIDCM # 100 combo..pkg 06/16/17 [place], Insulin Disposable [Novofine Autocover 30G Needle] 1 ea MISCELL. UD #1 box 06/16/17 The following prescriptions were given: Albuterol Inhaler [Ventolin Hfa] 1 - 2 puff INHALATION Q4H PRN PRN #1 inhaler PRN Reason: Shortness Of Breath Insulin Detemir [Levemir (BKC)] 10 units SC DAILY #1 flexpen [place], Insulin Disposable [Novofine Autocover 30G Needle] 1 ea MISCELL. UD #1 box Lancets/Blood Glucose Strips [Fora [id number] Strp-Lnct] 1 ea TIDCM # 100 combo..pkg Primary Care Physician: Dusty Almanza MD [Primary Care Provider] - Within 1 Week Please Follow Up With: Ronnell Benavides When: June 26 Please Follow Up With: Pauline Higgins MD When: 1 month Proposed Discharge Date: 06/16/17
--- NOTE | 2017-06-16 10:25 | PCM.DC.SUM ---
Discharge Date and Diagnosis - Problem List Patient Problems: Active and Suspected Problems (Last Reviewed 05/17/17 @ 15:28 by Trice Bowling) Acute on chronic combined systolic and diastolic heart failure (Acute) Acute renal failure superimposed on stage 3 chronic kidney disease (Acute) Date of Admission: 06/13/17 Date of Discharge: 06/16/17 - Primary Discharge Diagnosis Active and Suspected Problems (Last Reviewed 05/17/17 @ 15:28 by Trice Bowling) Acute on chronic combined systolic and diastolic heart failure (Acute) Acute renal failure superimposed on stage 3 chronic kidney disease (Acute) 1. Acute hypoxic and hypercapnic respiratory failure Secondary to acute exacerbation of with reduced ejection fraction with an EF of 45-50% on echocardiogram from 05/03/2017. Tolerating being off of BiPAP. 2. Acute heart failure with reduced ejection fraction Ejection fraction of 45-50% from echocardiogram from 05/03/2017. Also complicated by a severe aortic stenosis Patient had stopped taking his Lasix because he did feel that it was helping him 4 days prior to this admission. May not been the ultimate cause of his CHF exacerbation this time but certainly did not help. Cardiology consult Change Lasix over to oral. Was on metoprolol tartrate as outpatient and that has been continued. Not on an DIMAS inhibitor nor angiotensin receptor poornima given his acute on chronic kidney disease. 3. Severe aortic stenosis Complicating care in regards to the development of the CHF. Cardiology on consultation Patient was to follow-up with Dr. Umanzor, at [facility] for evaluation for valve replacement. Patient had much orders from Dr. Avendaño office placed on the chart to be done before discharge. I discussed the case with Dr. Carrillo, so that will get the room air ABG but the rest of the testing would have to be done on outpatient basis. Patient is scheduled to see cardiothoracic surgery and have his valve replaced on the . It is unclear if any kind and delay will in his testing will delay his valve replacement or not. He did appear to be on the orders that these were placed on the . Patient was admitted on the and I was not notified of any disorders until today. That was 10 days after the initial orders were placed. Once again these will have to be done on an outpatient basis. But we will get a room air ABG. 4. Acute kidney injury Creatinine was 2.08 on admission and it is improved today to 1.73. Baseline creatinine is 1.55. Improving patient appears to have chronic kidney disease stage IV. Nephrology on consultation. No need for renal replacement therapy. I would suspect this may relate with hypoperfusion given the patient's CHF but will wait further input from the specialist. Will hold off on additional Lasix until given the okay by the specialist at this time. 5. Diabetes mellitus type 2, uncontrolled. Patient was not in diabetic ketoacidosis nor in hyperosmolar nonketotic state. Given the patient's heart failure a lot of oral medications are contraindicated. I feel the patient would benefit from Levemir. I feel that the ease of use being and only one time injection would be of benefit for him. Compliance, unfortunately, will be an issue. 6. Anxiety Likely precipitated by the patient's respiratory failure. Given the patient's tenuous respiratory status and actually DC the Xanax. Apparently helped him with his anxiety last night but I be concerned for sedation and possible paradoxical delirium with it, given patient's age. 7. DVT prophylaxis with subcu heparin. Patient will be discharged today. Patient will have an amatory pulse ox to see if he will need oxygen. Patient will have a room air ABG but this is slight help expedite his valve replacement surgery workup. Once again, the additional studies, including VQ scan, CT chest, carotid ultrasounds; will be done on outpatient basis as to be arranged through his signal mechanic. - Secondary Discharge Diagnosis Chronic Problems (Last Reviewed 05/17/17 @ 15:28 by Trice Bowling) Type 2 diabetes mellitus with hyperglycemia (Chronic) 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) Cardiomyopathy in disease classified elsewhere (Chronic) Hypertension (Chronic) Dyspnea on exertion (Chronic) Hospital Course and Treatment Imaging Results: Clinical Impression(s) from Imaging Studies Chest X-Ray 06/13/17 20:29 IMPRESSION: Stable exam. Electronically Signed: Suraj Ross, at 22:00 EST Tel , Service support , Chest X-Ray 06/13/17 23:33 IMPRESSION: Stable cardiomegaly. Worsening of right hilar prominence, possibly vascular. Consider further evaluation with CT. Pulmonary vascular congestion and small pleural effusions at the lung bases with adjacent atelectasis/consolidation, superimposed pneumonia cannot be excluded. at 0019 Reported and signed by: Roshni Franco MD Electronically Signed: Roshni Franco MD at 23:18 EST Tel , Service support , Operations: [email or web address] - Laparoscopic converted to open Summary of Care Provided: The patient is a 77 year old M patient was brought in for acute CHF exacerbation. Patient stopped taking his Lasix because it was not make him feel any better and then he actually got worse. Patient did have blood gas it did show some slight hypercapnia. Patient had acute hypercapnic respiratory failure. Due to CHF. Patient was put on BiPAP and started on diuresis. Patient diuresed well eventually transition over to his oral Lasix and patient has remained off his BiPAP. Patient does have known severe aortic stenosis and is to follow-up with Dr. Umanzor, at [facility] for valve replacement on the of this month.. Patient also has diabetes. Patient has not previously been prescribed Tradjenta but never filled it and apparently never let anyone know that he could not get it because it was too profoundly expensive. [place] $300 per month. Patient's hemoglobin A1c is 9. I have recommended that patient be on Levemir 10 units daily. Is not ideal but patient does have issues obviously with compliance so I feel the ease of use would be beneficial with the Levemir. Patient ideally should be on Levemir plus prandial insulin but I think just getting him at least in the door of taking insulin with Levemir for now would be the most appropriate course of action. Oral hypoglycemics are really essentially contraindicated patient with CHF so that is why I am not proceeding with any of those in addition patient has chronic kidney disease. [] Discharge Diet: 2000 Calorie Control Diet, 6 Cup Fluid Restriction, 2000 mg Sodium Diet Discharge Activity: Return to Normal Activity Call your doctor if you observe: Fever of 101 or Higher, Shortness of breath Home Medications: Medications to take at Discharge Metoprolol Tartrate [Lopressor (beta poornima)] 50 mg PO BID 07/02/14 Multivitamins,Therapeutic [Multivitamin] 1 tab PO DAILY 07/02/14 Aspirin [Aspirin, Baby] 81 mg PO DAILY@0800 tab.chew 05/06/17 handicap placard #1 ea 06/01/17 Furosemide 40 mg PO DAILY 06/13/17 Albuterol Inhaler [Ventolin Hfa] 1 - 2 puff INHALATION Q4H PRN PRN #1 inhaler 06/16/17 Insulin Detemir [Levemir (BKC)] 10 units SC DAILY #1 flexpen 06/16/17 Lancets/Blood Glucose Strips [Fora [id number] Strp-Lnct] 1 ea MC TIDCM #100 combo..pkg 06/16/17 [place], Insulin Disposable [Novofine Autocover 30G Needle] 1 ea MISCELL. UD #1 box 06/16/17 Following Prescrptions Were Given to Patient: Albuterol Inhaler [Ventolin Hfa] 1 - 2 puff INHALATION Q4H PRN PRN #1 inhaler PRN Reason: Shortness Of Breath Insulin Detemir [Levemir (BKC)] 10 units SC DAILY #1 flexpen [place], Insulin Disposable [Novofine Autocover 30G Needle] 1 ea MISCELL. UD #1 box Lancets/Blood Glucose Strips [Fora [id number] Strp-Lnct] 1 ea TIDCM #100 combo..pkg Primary Care Physician: Dusty Almanza MD [Primary Care Provider] - Within 1 Week Please Follow Up With: Ronnell Umanzor When: June 26 Please Follow Up With: Pauline Higgins MD When: 1 month Disposition: Home Minutes spent on discharge:: 35 Patient Condition:: Fair Meaningful Use Info Meaningful Use Diagnoses (Choose all that apply): CHF - CHF DIMAS/ARB ordered at discharge?: No Reason DIMAS/ARB not ordered?: Worsening renal dysfunctn Documented LVEF (%): 50 Code Visit Inpatient E&M: [id number] Disch Hosp
--- NOTE | 2017-06-16 10:31 | DS.PCM_ITS ---
Discharge Date and Diagnosis - Problem List Patient Problems: Active and Suspected Problems (Last Reviewed 05/17/17 @ 15:28 by Trice Bowling) Acute on chronic combined systolic and diastolic heart failure (Acute) Acute renal failure superimposed on stage 3 chronic kidney disease (Acute) Date of Admission: 06/13/17 Date of Discharge: 06/16/17 - Primary Discharge Diagnosis Active and Suspected Problems (Last Reviewed 05/17/17 @ 15:28 by Trice Bowling) Acute on chronic combined systolic and diastolic heart failure (Acute) Acute renal failure superimposed on stage 3 chronic kidney disease (Acute) 1. Acute hypoxic and hypercapnic respiratory failure Secondary to acute exacerbation of with reduced ejection fraction with an EF of 45-50% on echocardiogram from 05/03/2017. Tolerating being off of BiPAP. 2. Acute heart failure with reduced ejection fraction Ejection fraction of 45-50% from echocardiogram from 05/03/2017. Also complicated by a severe aortic stenosis Patient had stopped taking his Lasix because he did feel that it was helping him 4 days prior to this admission. May not been the ultimate cause of his CHF exacerbation this time but certainly did not help. Cardiology consult Change Lasix over to oral. Was on metoprolol tartrate as outpatient and that has been continued. Not on an DIMAS inhibitor nor angiotensin receptor poornima given his acute on chronic kidney disease. 3. Severe aortic stenosis Complicating care in regards to the development of the CHF. Cardiology on consultation Patient was to follow-up with Dr. Umanzor, at [facility] for evaluation for valve replacement. Patient had much orders from Dr. Avendaño office placed on the chart to be done before discharge. I discussed the case with Dr. Carrillo, so that will get the room air ABG but the rest of the testing would have to be done on outpatient basis. Patient is scheduled to see cardiothoracic surgery and have his valve replaced on the . It is unclear if any kind and delay will in his testing will delay his valve replacement or not. He did appear to be on the orders that these were placed on the . Patient was admitted on the and I was not notified of any disorders until today. That was 10 days after the initial orders were placed. Once again these will have to be done on an outpatient basis. But we will get a room air ABG. 4. Acute kidney injury Creatinine was 2.08 on admission and it is improved today to 1.73. Baseline creatinine is 1.55. Improving patient appears to have chronic kidney disease stage IV. Nephrology on consultation. No need for renal replacement therapy. I would suspect this may relate with hypoperfusion given the patient's CHF but will wait further input from the specialist. Will hold off on additional Lasix until given the okay by the specialist at this time. 5. Diabetes mellitus type 2, uncontrolled. Patient was not in diabetic ketoacidosis nor in hyperosmolar nonketotic state. Given the patient's heart failure a lot of oral medications are contraindicated. I feel the patient would benefit from Levemir. I feel that the ease of use being and only one time injection would be of benefit for him. Compliance, unfortunately, will be an issue. 6. Anxiety Likely precipitated by the patient's respiratory failure. Given the patient's tenuous respiratory status and actually DC the Xanax. Apparently helped him with his anxiety last night but I be concerned for sedation and possible paradoxical delirium with it, given patient's age. 7. DVT prophylaxis with subcu heparin. Patient will be discharged today. Patient will have an amatory pulse ox to see if he will need oxygen. Patient will have a room air ABG but this is slight help expedite his valve replacement surgery workup. Once again, the additional studies, including VQ scan, CT chest, carotid ultrasounds; will be done on outpatient basis as to be arranged through his laborer hoisting. - Secondary Discharge Diagnosis Chronic Problems (Last Reviewed 05/17/17 @ 15:28 by Trice Bowling) Type 2 diabetes mellitus with hyperglycemia (Chronic) 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) Cardiomyopathy in disease classified elsewhere (Chronic) Hypertension (Chronic) Dyspnea on exertion (Chronic) Hospital Course and Treatment Imaging Results: Clinical Impression(s) from Imaging Studies Chest X-Ray 06/13/17 20:29 IMPRESSION: Stable exam. Electronically Signed: Suraj Ross, at 22:00 EST Tel , Service support , Chest X-Ray 06/13/17 23:33 IMPRESSION: Stable cardiomegaly. Worsening of right hilar prominence, possibly vascular. Consider further evaluation with CT. Pulmonary vascular congestion and small pleural effusions at the lung bases with adjacent atelectasis/consolidation, superimposed pneumonia cannot be excluded. at 0019 Reported and signed by: Roshni Franco MD Electronically Signed: Roshni Franco MD at 23:18 EST Tel , Service support , Operations: [email or web address] - Laparoscopic converted to open Summary of Care Provided: The patient is a 77 year old M patient was brought in for acute CHF exacerbation. Patient stopped taking his Lasix because it was not make him feel any better and then he actually got worse. Patient did have blood gas it did show some slight hypercapnia. Patient had acute hypercapnic respiratory failure. Due to CHF. Patient was put on BiPAP and started on diuresis. Patient diuresed well eventually transition over to his oral Lasix and patient has remained off his BiPAP. Patient does have known severe aortic stenosis and is to follow-up with Dr. Umanzor, at [facility] for valve replacement on the of this month.. Patient also has diabetes. Patient has not previously been prescribed Tradjenta but never filled it and apparently never let anyone know that he could not get it because it was too profoundly expensive. [place] $300 per month. Patient's hemoglobin A1c is 9. I have recommended that patient be on Levemir 10 units daily. Is not ideal but patient does have issues obviously with compliance so I feel the ease of use would be beneficial with the Levemir. Patient ideally should be on Levemir plus prandial insulin but I think just getting him at least in the door of taking insulin with Levemir for now would be the most appropriate course of action. Oral hypoglycemics are really essentially contraindicated patient with CHF so that is why I am not proceeding with any of those in addition patient has chronic kidney disease. [] Discharge Diet: 2000 Calorie Control Diet, 6 Cup Fluid Restriction, 2000 mg Sodium Diet Discharge Activity: Return to Normal Activity Call your doctor if you observe: Fever of 101 or Higher, Shortness of breath Home Medications: Medications to take at Discharge Metoprolol Tartrate [Lopressor (beta poornima)] 50 mg PO BID 07/02/14 Multivitamins,Therapeutic [Multivitamin] 1 tab PO DAILY 07/02/14 Aspirin [Aspirin, Baby] 81 mg PO DAILY@0800 tab.chew 05/06/17 handicap placard #1 ea 06/01/17 Furosemide 40 mg PO DAILY 06/13/17 Albuterol Inhaler [Ventolin Hfa] 1 - 2 puff INHALATION Q4H PRN PRN #1 inhaler Insulin Detemir [Levemir (BKC)] 10 units SC DAILY #1 flexpen 06/16/17 Lancets/Blood Glucose Strips [Fora [id number] Strp-Lnct] 1 ea MC TIDCM # 100 combo..pkg 06/16/17 [place], Insulin Disposable [Novofine Autocover 30G Needle] 1 ea MISCELL. UD #1 box 06/16/17 Following Prescrptions Were Given to Patient: Albuterol Inhaler [Ventolin Hfa] 1 - 2 puff INHALATION Q4H PRN PRN #1 inhaler PRN Reason: Shortness Of Breath Insulin Detemir [Levemir (BKC)] 10 units SC DAILY #1 flexpen [place], Insulin Disposable [Novofine Autocover 30G Needle] 1 ea MISCELL. UD #1 box Lancets/Blood Glucose Strips [Fora [id number] Strp-Lnct] 1 ea TIDCM # 100 combo..pkg Primary Care Physician: Dusty Almanza MD [Primary Care Provider] - Within 1 Week Please Follow Up With: Ronnell Umanzor When: June 26 Please Follow Up With: Pauline Higgins MD When: 1 month Disposition: Home Minutes spent on discharge:: 35 Patient Condition:: Fair Meaningful Use Info Meaningful Use Diagnoses (Choose all that apply): CHF - CHF DIMAS/ARB ordered at discharge?: No Reason DIMAS/ARB not ordered?: Worsening renal dysfunctn Documented LVEF (%): 50 Code Visit Inpatient E&M: [id number] Disch Hosp
[2017-06-16 11:30] LABS: Bedside Glucose 411 mg/dL (70-110)
--- NOTE | 2017-06-16 13:13 | NURSING ---
PT EDUCATED ON USE OF LEVEMIR FLEX PEN. TAUGHT PATIENT SITES (EX:ABDOMEN) HOW TO DIAL UP APPROPRIATE DOSAGE AND INJECT FLEX PEN. THE IMPORTANCE OF USING DIFFERENT NEEDLES FOR EACH INJECTION AND HOW TO DIAL UP 2 UNITS TO WASTE-TO TEST THAT INSULIN IS ACTUALLY COMING OUT OF [place]. UTILIZED TEACH BACK METHOD. ALSO GOING TO TEACH WHEN SHE ARRIVES TO VEHICLE TRIMMER PATIENT. PT ENCOURAGED TO ASK QUESTIONS WHILE TEACHING WAS TAKING PLACE.
== END 2017-06-16 14:30 | disposition home or self-care (01) | DRG 291 ==
LOC: ED 21:32 → PCU 23:02 → ICU 06-14 00:12 → PCU 06-15 16:39
PROVIDERS: Internal Medicine Critical Care Medicine; Internal Medicine Nephrology; Admitting Provider Internal Medicine; Emergency Provider Emergency Medicine; Family Provider Family Medicine; PCP Family Medicine
DX: I13.0 Hypertensive heart and chronic kidney disease with heart failure and stage 1 through stage 4 chronic kidney disease, or unspecified chronic kidney disease (principal); J96.01 Acute respiratory failure with hypoxia; J96.02 Acute respiratory failure with hypercapnia; N17.9 Acute kidney failure, unspecified; I50.43 Acute on chronic combined systolic (congestive) and diastolic (congestive) heart failure; I35.2 Nonrheumatic aortic (valve) stenosis with insufficiency; E11.65 Type 2 diabetes mellitus with hyperglycemia; Z87.891 Personal history of nicotine dependence; Z91.14 Patient's other noncompliance with medication regimen; E11.22 Type 2 diabetes mellitus with diabetic chronic kidney disease; N18.3 Chronic kidney disease, stage 3 (moderate); I42.9 Cardiomyopathy, unspecified
CPT/HCPCS: 36415; 36600; 71045; 71046; 80048; 81001; 82803; 82962; 83036; 83735; 83880; 84100; 84132; 84484; 85025; 87641; 93005; 94002; 94003; 97802; 99285; A4216; J1940

== ENCOUNTER 2017-07-18 20:45 | Inpatient (IN) | payer MEDICARE, SELFPAY ==
[2017-07-18 20:50] VITALS: BP 120/91; PULSE 92; RESP 18; TEMP 36.5; O2SAT 93
--- NOTE | 2017-07-18 21:10 | NURSING ---
Patient arrived at this time via stretcher from [facility].
[2017-07-18 21:14] VITALS: PULSE 92; BMI 29.5
[2017-07-18 21:21] LABS: Bedside Glucose 140 mg/dL (70-110)
--- NOTE | 2017-07-18 21:30 | PCM.HP.STD ---
Problem List (1) Critical aortic valve stenosis Status: Chronic (2) Mitral valve insufficiency Status: Chronic (3) Acute on chronic combined systolic (congestive) and diastolic (congestive) heart failure Status: Acute (4) Diabetes mellitus Status: Chronic (5) Chronic kidney disease Status: Chronic (6) Hypertension Status: Chronic (7) Allergic rhinitis Status: Chronic History of Present Illness Date of Admission: 07/18/17 Chief Complaint: Here for rehabilitation, strengthening, prior to discharge home. The patient is a 77 year old Male with below past medical history hospitalized at [facility] 07/04/2017 for aortic valve replacement, mitral valve repair, left atrial appendage clip. 07/16/2017 Patient developed atrial fibrillation requiring successful cardioversion. He is on warfarin for atrial fibrillation, INR 4 on 07/18/2017, warfarin held. 07/18/2017 Admit to TCU for rehabilitation, strengthening, prior to discharge home with spouse. Past Medical History Past Medical History (Chronic Problems): Chronic Problems (Last Reviewed 05/17/17 @ 15:28 by Trice Bowling) Critical aortic valve stenosis (Chronic) Mitral valve insufficiency (Chronic) Diabetes mellitus (Chronic) Chronic kidney disease (Chronic) 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) Type 2 diabetes mellitus with hyperglycemia (Chronic) Cardiomyopathy in disease classified elsewhere (Chronic) Hypertension (Chronic) Dyspnea on exertion (Chronic) Allergic rhinitis (Chronic) Allergies No Known Allergies Allergy (Verified 06/26/17 14:39) Home Medications: Ambulatory Orders Medication Instructions Recorded Multivitamins,Therapeutic 1 tab PO DAILY 07/02/14 [Multivitamin] Acetaminophen 650 mg PO Q6H PRN 07/18/17 Albuterol Inhaler [Ventolin Hfa] 2 puff INHALATION Q4H PRN PRN 07/18/17 Aspirin [Aspirin, Baby] 81 mg PO DAILY@0800 07/18/17 Surgical History: adenoidectomy, cholecystectomy, tonsillectomy, - - Aortic valve replacement, mitral valve repair, left atrial appendage clip. Psychiatric History: No pertinent psych hx Lives: Spouse/ Significant Other Smoking Status: Former smoker Tobacco Use: Non-smoker Alcohol: None Drugs: None - *Family History Maternal History Items: Hypertension Paternal History Items: Hypertension Review of Systems Constitutional: Denies: Chills, Fever, Weight Change HEENT: Denies: Head Aches, Sinus Congestion, Sinus Drainage Cardiovascular: Denies: Chest Pain, Palpitations Respiratory: Denies: Cough, Shortness of breath at rest, Sputum production Gastrointestinal: Denies: Abdominal Pain, Nausea, Vomiting Genitourinary: Denies: Dysuria Musculoskeletal: Denies: Joint Pain, Joint Tenderness Skin: Denies: Rash, Wounds Neurological: Denies: Numbness, Tingling, Focal weakness Psychiatric: Denies: Anxiety, Depression, Homicidal Ideations, Suicidal Ideations Hematologic/ Lymphatic: Denies: Easy Bruising, Easy Bleeding VTE Information - Inpt Only VTE Present on Admission: No VTE Mechan Device Prophylaxis: Knee High LAUREN Hose VTE Pharm Prophylaxis ordered?: No Reason prophylaxis not ordered:: Treatment Not Indicated Patient Problems: Active and Suspected Problems (Last Reviewed 05/17/17 @ 15:28 by Trice Bowling) Acute on chronic combined systolic (congestive) and diastolic (congestive) heart failure (Acute) - Physical Exam General: Alert, Oriented x3, Cooperative HEENT: Atraumatic, PERRLA, EOMI, Normocephalic Neck: Supple, No JVD, Negative Carotid Bruits Lungs: Clear to auscultation, Normal air movement Cardiovascular: Regular rate, No murmurs Abdomen: Bowel Sounds Present, Soft, Non Tender Extremities: No edema, Capillary Refill Less than 3 Seconds Skin: No rashes, No breakdown, Incision - Sternal clean, dry, intact. Musculoskeletal: No Tenderness to Palpation of Joints or Extremities Neurological: Cranial nerves II-XII grossly intact Psych/Mental Status: Normal Affect, Appropriate Vital Signs Temp Pulse Resp BP Pulse Ox 97.7 F L 92 18 120/91 H 93 07/18/17 20:50 07/18/17 20:50 07/18/17 20:50 07/18/17 20:50 07/18/17 20:50 Oxygen Delivery Method Room Air Weight: 78.2 kg Body Mass Index (BMI) 29.5 Finger Stick Blood Glucose 600 POC Glucose 07/18/17 21:17 POC Glucose 140 H Assessment/Plan Active and Suspected Problems (Last Reviewed 05/17/17 @ 15:28 by Trice Bowling) Acute on chronic combined systolic (congestive) and diastolic (congestive) heart failure (Acute) 77 year old male with below past medical history significant for 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 Debility - PT/OT. Pain - Tylenol 1000MG Q8H PRN mild pain. Bowel - Miralax 17GM daily, Senna/colace 1 tablet BID, Dulcolax 10MG PO daily PRN. Pneumonia vaccination - Administer Prevnar 13 and/or Pneumovax 23 as necessary. DVT prophylaxis - Not necessary, already on warfarin. Shortness of breath - Albuterol 2 puffs Q4H PRN. Atrial fibrillation - Metoprolol succinate 12.5MG BID, Amiodarone 400MG daily thru 07/25/2017, 200MG daily thru 08/25/2017, Warfarin on hold, INR daily, INR today 4.0. Consider NOAC if affordable. Coronary Artery Disease - Metoprolol succinate 12.5MG BID, Aspirin 81MG daily. Diabetes Mellitus II - Levemir 20 units QHS, Novolog 6, 6, 5. Hyperlipidemia - ?high intensity statin missing. Insomnia - Melatonin 6MG QHS. Nutrition - MVI daily. Chronic heart failure - Metoprolol succinate 12.5MG BID, Aldactone 12.5MG daily. Fall - resident fell early hours 07/19/2017, INR supratherapeutic, head injury, sent to ED, CT head negative.
[2017-07-18 21:37] VITALS: BMI 29.6
--- NOTE | 2017-07-18 21:41 | HP.PCM_ITS ---
Problem List (1) Critical aortic valve stenosis Status: Chronic (2) Mitral valve insufficiency Status: Chronic (3) Acute on chronic combined systolic (congestive) and diastolic (congestive) heart failure Status: Acute (4) Diabetes mellitus Status: Chronic (5) Chronic kidney disease Status: Chronic (6) Hypertension Status: Chronic (7) Allergic rhinitis Status: Chronic History of Present Illness Date of Admission: 07/18/17 Chief Complaint: Here for rehabilitation, strengthening, prior to discharge home. The patient is a 77 year old Male with below past medical history hospitalized at [facility] 07/04/2017 for aortic valve replacement, mitral valve repair, left atrial appendage clip. 07/16/2017 Patient developed atrial fibrillation requiring successful cardioversion. He is on warfarin for atrial fibrillation, INR 4 on 07/18/2017, warfarin held. 07/18/2017 Admit to TCU for rehabilitation, strengthening, prior to discharge home with spouse. Past Medical History Past Medical History (Chronic Problems): Chronic Problems (Last Reviewed 05/17/17 @ 15:28 by Trice Bowling) Critical aortic valve stenosis (Chronic) Mitral valve insufficiency (Chronic) Diabetes mellitus (Chronic) Chronic kidney disease (Chronic) 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) Type 2 diabetes mellitus with hyperglycemia (Chronic) Cardiomyopathy in disease classified elsewhere (Chronic) Hypertension (Chronic) Dyspnea on exertion (Chronic) Allergic rhinitis (Chronic) Allergies No Known Allergies Allergy (Verified 06/26/17 14:39) Home Medications: Ambulatory Orders Medication Instructions Recorded Multivitamins,Therapeutic 1 tab PO DAILY 07/02/14 [Multivitamin] Acetaminophen 650 mg PO Q6H PRN 07/18/17 Albuterol Inhaler [Ventolin Hfa] 2 puff INHALATION Q4H PRN PRN 07/18/17 Aspirin [Aspirin, Baby] 81 mg PO DAILY@0800 07/18/17 Surgical History: adenoidectomy, cholecystectomy, tonsillectomy, - - Aortic valve replacement, mitral valve repair, left atrial appendage clip. Psychiatric History: No pertinent psych hx Lives: Spouse/ Significant Other Smoking Status: Former smoker Tobacco Use: Non-smoker Alcohol: None Drugs: None - *Family History Maternal History Items: Hypertension Paternal History Items: Hypertension Review of Systems Constitutional: Denies: Chills, Fever, Weight Change HEENT: Denies: Head Aches, Sinus Congestion, Sinus Drainage Cardiovascular: Denies: Chest Pain, Palpitations Respiratory: Denies: Cough, Shortness of breath at rest, Sputum production Gastrointestinal: Denies: Abdominal Pain, Nausea, Vomiting Genitourinary: Denies: Dysuria Musculoskeletal: Denies: Joint Pain, Joint Tenderness Skin: Denies: Rash, Wounds Neurological: Denies: Numbness, Tingling, Focal weakness Psychiatric: Denies: Anxiety, Depression, Homicidal Ideations, Suicidal Ideations Hematologic/ Lymphatic: Denies: Easy Bruising, Easy Bleeding VTE Information - Inpt Only VTE Present on Admission: No VTE Mechan Device Prophylaxis: Knee High LAUREN Hose VTE Pharm Prophylaxis ordered?: No Reason prophylaxis not ordered:: Treatment Not Indicated Patient Problems: Active and Suspected Problems (Last Reviewed 05/17/17 @ 15:28 by Trice Bowling) Acute on chronic combined systolic (congestive) and diastolic (congestive) heart failure (Acute) - Physical Exam General: Alert, Oriented x3, Cooperative HEENT: Atraumatic, PERRLA, EOMI, Normocephalic Neck: Supple, No JVD, Negative Carotid Bruits Lungs: Clear to auscultation, Normal air movement Cardiovascular: Regular rate, No murmurs Abdomen: Bowel Sounds Present, Soft, Non Tender Extremities: No edema, Capillary Refill Less than 3 Seconds Skin: No rashes, No breakdown, Incision - Sternal clean, dry, intact. Musculoskeletal: No Tenderness to Palpation of Joints or Extremities Neurological: Cranial nerves II-XII grossly intact Psych/Mental Status: Normal Affect, Appropriate Vital Signs Temp Pulse Resp BP Pulse Ox 97.7 F L 92 18 120/91 H 93 07/18/17 20:50 07/18/17 20:50 07/18/17 20:50 07/18/17 20:50 07/18/17 20:50 Oxygen Delivery Method Room Air Weight: 78.2 kg Body Mass Index (BMI) 29.5 Finger Stick Blood Glucose 600 POC Glucose 07/18/17 21:17 POC Glucose 140 H Assessment/Plan Active and Suspected Problems (Last Reviewed 05/17/17 @ 15:28 by Trice Bowling) Acute on chronic combined systolic (congestive) and diastolic (congestive) heart failure (Acute) 77 year old male with below past medical history significant for 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 * Debility - PT/OT. * Pain - Tylenol 1000MG Q8H PRN mild pain. * Bowel - Miralax 17GM daily, Senna/colace 1 tablet BID, Dulcolax 10MG PO daily PRN. * Pneumonia vaccination - Administer Prevnar 13 and/or Pneumovax 23 as necessary. * DVT prophylaxis - Not necessary, already on warfarin. * Shortness of breath - Albuterol 2 puffs Q4H PRN. * Atrial fibrillation - Metoprolol succinate 12.5MG BID, Amiodarone 400MG daily thru 07/25/2017, 200MG daily thru 08/25/2017, Warfarin on hold, INR daily, INR today 4.0. Consider NOAC if affordable. * Coronary Artery Disease - Metoprolol succinate 12.5MG BID, Aspirin 81MG daily. * Diabetes Mellitus II - Levemir 20 units QHS, Novolog 6, 6, 5. * Hyperlipidemia - ?high intensity statin missing. * Insomnia - Melatonin 6MG QHS. * Nutrition - MVI daily. * Chronic heart failure - Metoprolol succinate 12.5MG BID, Aldactone 12.5MG daily. * Fall - resident fell early hours 07/19/2017, INR supratherapeutic, head injury , sent to ED, CT head negative.
[2017-07-18] MEDS: MELATONIN 3 MG TABLET 6 MG PO (22:40)
--- NOTE | 2017-07-19 04:35 | NURSING ---
Loud crash was heard coming from room 6. Patient found laying on the floor. Patient's head noted to have abrasion to it that was bleeding. Patient alert and oriented x 3. Hand grasp equal, Pedal push/pull equal. Patient's pupils reactive. BP 132/93 P 102 R 22 Glucose 233.
--- NOTE | 2017-07-19 04:40 | NURSING ---
Dr Pabon notified of Patient being found on the floor and that patient hit head. New orders to send patient to ER to get a Head CT STAT. Nurse batch plant supervisor notified.
--- NOTE | 2017-07-19 04:50 | NURSING ---
Patient's notified of patient being found on the floor and that patient was being sent down to ER for STAT Brain CT.
--- NOTE | 2017-07-19 04:55 | NURSING ---
Patient sent down to ER at this time via stretcher. Report called down to Debbie in ER.
[2017-07-19 05:01] LABS: Bedside Glucose 233 mg/dL (70-110)
--- NOTE | 2017-07-19 08:35 | NURSING ---
Patient returns from ER; NNO. DR LUI notified, will be to floor to see him.
[2017-07-19 09:06] VITALS: PULSE 89
[2017-07-19] MEDS: Metoprolol(XL)Succ 25 MG Tablet 12.5 MG PO ×2 (09:06→17:32)
[2017-07-19] MEDS: Multivitamins,Therapeutic Tablet 1 TABLET PO (09:06)
[2017-07-19] MEDS: Aspirin 81 MG TAB.CHEW PO (09:07)
[2017-07-19] MEDS: Spironolactone 25 MG Tablet 12.5 MG PO (09:08)
[2017-07-19] MEDS: Senna/Docusate Sodium 1 Tablet PO (09:08)
[2017-07-19] MEDS: Amiodarone 200 MG Tablet 400 MG PO (09:08)
--- NOTE | 2017-07-19 09:30 | NURSING ---
Coumadin discontinued per Dr Cm ANAYA; daily INR ordered.
--- NOTE | 2017-07-19 09:55 | NURSING ---
Patients returns call; notified of patient to ER for evaluation, update given on coumadin and INR and CT results.
[2017-07-19 10:00] VITALS: PULSE 94; RESP 18; O2SAT 96
[2017-07-19 11:11] LABS: Bedside Glucose 291 mg/dL (70-110)
[2017-07-19] MEDS: Tuberculin,Purif.prot.deriv. 50 TU/ML Vial 5 ML ID (12:00)
[2017-07-19] MEDS: Glucerna Shake 120 ML LIQUID PO ×2 (12:01→17:30)
[2017-07-19 14:44] VITALS: O2SAT 94
[2017-07-19 15:27] VITALS: BP 115/76; PULSE 78; RESP 16; TEMP 36.8; O2SAT 94
[2017-07-19 17:26] LABS: Bedside Glucose 95 mg/dL (70-110)
[2017-07-19 17:32] VITALS: PULSE 78
[2017-07-19 21:02] LABS: Bedside Glucose 231 mg/dL (70-110)
[2017-07-19] MEDS: MELATONIN 3 MG TABLET 6 MG PO (21:18)
[2017-07-19] MEDS: Nystatin Powder 15gm Bottle 1 APPLIC TOPICAL (21:23)
[2017-07-20 06:06] LABS: Prothrombin Time (Protime)PT. 30.2 SECONDS (11.7-14.9)
[2017-07-20 06:56] LABS: Bedside Glucose 107 mg/dL (70-110)
[2017-07-20] MEDS: Spironolactone 25 MG Tablet 12.5 MG PO (07:09)
[2017-07-20] MEDS: Amiodarone 200 MG Tablet 400 MG PO (07:10)
[2017-07-20] MEDS: Nystatin Powder 15gm Bottle 1 APPLIC TOPICAL ×2 (07:10→21:21)
[2017-07-20] MEDS: Polyethylene Glycol 3350 17 GM PACKET PO (07:10)
[2017-07-20] MEDS: Senna/Docusate Sodium 1 Tablet PO (07:11)
[2017-07-20 07:17] VITALS: BP 102/67; PULSE 81
[2017-07-20] MEDS: Metoprolol(XL)Succ 25 MG Tablet 12.5 MG PO ×2 (07:17→17:21)
[2017-07-20] MEDS: Glucerna Shake 120 ML LIQUID PO ×2 (07:19→11:56)
[2017-07-20] MEDS: Multivitamins,Therapeutic Tablet 1 TABLET PO (08:12)
[2017-07-20] MEDS: Aspirin 81 MG TAB.CHEW PO (08:12)
--- NOTE | 2017-07-20 10:44 | CASEMGMT ---
Insurance Clinical information faxed. Pending continued stay approval at this time. Auth#[id number] Jade MAY, ADVERTISEMENT DISTRIBUTOR
[2017-07-20 11:20] LABS: Bedside Glucose 130 mg/dL (70-110)
[2017-07-20 16:00] VITALS: BP 115/69; PULSE 79; RESP 22; TEMP 36.7; O2SAT 95
[2017-07-20 16:51] LABS: Bedside Glucose 42 mg/dL (70-110)
[2017-07-20 17:16] LABS: Bedside Glucose 95 mg/dL (70-110)
[2017-07-20 17:21] VITALS: PULSE 79
--- NOTE | 2017-07-20 17:24 | NURSING ---
Pt BS 42, this nurse gave PT orange juice and candy. BS rechecked and BS 95. No insulin coverage given at this time. Jyoti RN aware.
[2017-07-20 21:06] LABS: Bedside Glucose 102 mg/dL (70-110)
[2017-07-20] MEDS: MELATONIN 3 MG TABLET 6 MG PO (21:16)
[2017-07-21 02:11] LABS: Bedside Glucose 163 mg/dL (70-110)
[2017-07-21] MEDS: Spironolactone 25 MG Tablet 12.5 MG PO (04:58)
[2017-07-21] MEDS: Amiodarone 200 MG Tablet 400 MG PO (04:58)
[2017-07-21 04:59] VITALS: BP 123/80; PULSE 83
[2017-07-21] MEDS: Nystatin Powder 15gm Bottle 1 APPLIC TOPICAL ×2 (04:59→21:09)
[2017-07-21] MEDS: Metoprolol(XL)Succ 25 MG Tablet 12.5 MG PO ×2 (04:59→17:42)
[2017-07-21 06:56] LABS: Bedside Glucose 153 mg/dL (70-110)
[2017-07-21] MEDS: Multivitamins,Therapeutic Tablet 1 TABLET PO (08:03)
[2017-07-21] MEDS: Aspirin 81 MG TAB.CHEW PO (08:03)
[2017-07-21] MEDS: Glucerna Shake 120 ML LIQUID PO ×3 (08:04→17:44)
[2017-07-21 10:35] VITALS: BP 100/65; PULSE 79; RESP 18; TEMP 36.8; O2SAT 94
--- NOTE | 2017-07-21 10:36 | NURSING ---
dr springer notified of yesterday INR level, new order for today inr and daily. Also updated on pt being awake all night, new order for trazodone Qhs
[2017-07-21 10:56] LABS: Bedside Glucose 311 mg/dL (70-110)
[2017-07-21 11:19] LABS: International Normalized Ratio 2.7
[2017-07-21 11:27] LABS: Anion Gap 9 (5-15); BUN 20 mg/dL (7-18); BUN/Creat Ratio 13.4 RATIO (10-20); Calcium,Total 8.3 mg/dL (8.5-10.1); Chloride 101 mmol/L (98-107); Creatinine, Serum 1.49 mg/dL (0.70-1.30); EST Glomerular Filtration Rate 49 mL/min (>60); Est Glom Filt Rate - Afr Amer 59 mL/min (>60); Estimated Creatinine Clearance 35.87 ml/min; Glucose 314 mg/dL (74-106); Potassium 4.7 mmol/L (3.5-5.1); Sodium Level 136 mmol/L (136-145)
[2017-07-21 11:28] LABS: Absolute Lymphocyte Count 0.89 X10^3/ul (0.83-4.51); Absolute Neutrophil Count 1.4 X10^3/uL (2.0-7.7); Basophil# 0.01 X10^3/uL; Basophil% 0.3 % (0-1); Eosinophil# 0.29 X10^3/uL; Eosinophils% 9.2 % (0-5); Hematocrit 28.9 % (40-54); Hemoglobin 8.9 g/dl (13.0-16.5); Lymphocyte # 0.89 X10^3/ul (4.0); Lymphocyte % 28.2 % (19-41); Mean Corp Hgb Conc 30.8 g/gl (32-36); Mean Corpuscular Hgb 32.6 pg (27.0-32.0); Mean Corpuscular Volume 105.9 fL (80-94); Mean Platelet Vol. 10.3 fl (6.2-12.0); Monocyte# 0.46 X10^3/uL; Monocyte% 14.6 % (0-10); Neutrophil # 1.43 X10^3/uL (2.7-7.7); Neutrophil % 45.2 % (47-70); Platelet Count 200 K/mm3 (150-450); Red Blood Count 2.73 M/mm3 (4.6-6.2); White Blood Count 3.2 K/mm3 (4.4-11.0)
[2017-07-21 11:29] LABS: Differential Indicated SCAN CRITERIA MET; POSITIVE COUNT YES; POSITIVE DIFFERENTIAL NO; POSITIVE MORPHOLOGY YES
--- NOTE | 2017-07-21 11:39 | NURSING ---
Addendum entered by Natalie Velasquez 07/21/17 12:01: D/T PT HISTORY OF CHF, NEW ORDER TO CHANGE NS TO 500CC BAG INFUSING AT 50CC/HR THEN DC. HGB 8.9, NEW ORDER FOR FERREX DAILY & RECHECK ON SUNDAY. Original Note: DR LUI NOTIFIED OF LABS, NEW ORDER TO RESTART COUMADIN, INR 2.7, CHECK INR DAILY. 0.9NS IV 1 LITER BOLUS ELEVATED BUN/CR. AWARE BLOOD SUGAR 311, NEW ORDER NOVOLOG 5 UNITS X1 AT LUNCH. PT C/O FEELING NAUSEATED AND SICK TO STOMACH, I FEEL LIKE I HAVE THE FLU ALSO C/O LIGHTHEADEDNESS. NEW ORDER TO CHECK RESP PANEL. PT AWARE OF ALL.
[2017-07-21 11:53] LABS: Anisocytosis 2+; Differential Comment SCANNED; Macrocytosis 1+; Microcytosis 1+
[2017-07-21] MEDS: Iron Polysaccharide Complex 150 MG CAPSULE PO (12:44)
[2017-07-21] MEDS: 0.9% Saline Lock 10 ML Syringe IV (12:46)
--- NOTE | 2017-07-21 15:45 | PCM.PN.RX ---
<DucVern winters D - Last Filed: 07/21/17 15:45> Progress Note - Pharmacy Subjective: TCU Admission Objective: Allergies No Known Allergies Allergy (Verified 06/26/17 14:39) Home Medications Medication Instructions Recorded Multivitamins,Therapeutic 1 tab PO DAILY 07/02/14 [Multivitamin] Acetaminophen 650 mg PO Q6H PRN 07/18/17 Albuterol Inhaler [Ventolin Hfa] 2 puff INHALATION Q4H PRN PRN 07/18/17 Aspirin [Aspirin, Baby] 81 mg PO DAILY@0800 07/18/17 Current Medications Generic Name Dose Route Start Last Admin Trade Name Freq PRN Reason Stop Dose Admin Acetaminophen 1,000 mg 07/18/17 21:53 Tylenol PO Q8H PRN PRN MILD PAIN (1-310) Albuterol Sulfate 2 puff 07/18/17 21:27 Ventolin Hfa (Sp) INHALATION Q4H PRN PRN SHORTNESS OF BREATH Amiodarone HCl 400 mg 07/19/17 06:00 07/21/17 04:58 Cordarone PO 07/25/17 06:01 400 mg DAILY ZOHREH Administration Amiodarone HCl 200 mg 07/26/17 06:00 Cordarone PO 08/25/17 06:01 DAILY ZOHREH Aspirin 81 mg 07/19/17 08:00 07/21/17 08:03 Aspirin, Baby PO 81 mg DAILY@0800 ZOHREH Administration Bisacodyl 10 mg 07/18/17 21:52 Dulcolax PO DAILY PRN PRN Constipation Dextrose 0 gm 07/21/17 11:35 D50w Syringe IV X1 PRN Hypoglycemia Protocol Glucagon 1 mg 07/21/17 11:35 IM .X1 PRN Hypoglycemia Glucose 15 gm 07/18/17 21:29 Instant Glucose PO PRN PRN HYPOGLYCEMIA Sodium Chloride 500 mls @ 50 mls/hr 07/21/17 12:00 07/21/17 13:07 IV 07/21/17 21:59 50 mls/hr .Q10H ZOHREH Administration Insulin Detemir 5 units 07/21/17 06:00 07/21/17 08:04 Levemir (Bkc) SC 5 units BID ZOHREH Administration Melatonin 6 mg 07/18/17 22:00 07/20/17 21:16 Melatonin PO 6 mg QHS ZOHREH Administration Metoprolol Succinate 12.5 mg 07/19/17 06:00 07/21/17 04:59 Toprol Xl (Beta Severo) PO 12.5 mg BID [facility] Administration Multivitamins 1 tablet 07/19/17 08:00 07/21/17 08:03 Multivitamin PO 1 tablet DAILYCM [facility] Administration Nutritional Formula (Lactose Free) 120 ml 07/19/17 07:45 07/21/17 12:46 Glucerna Shake PO 120 ml TIDCM [facility] Administration Nystatin 1 applic 07/19/17 06:00 07/21/17 04:59 Mycostatin Powder TOPICAL 1 applicatio 0600,2200 [facility] Administration Protocol Polyethylene Glycol 17 gm 07/19/17 06:00 07/21/17 04:57 Miralax PO Not Given DAILY [facility] Polysaccharide Iron Complex 150 mg 07/22/17 08:00 07/21/17 12:44 Ferrex 150 PO 150 mg DAILYCM [facility] Administration Senna/Docusate Sodium 1 tablet 07/19/17 06:00 07/21/17 04:57 Senokot-S, Shantell-Colace PO Not Given BID [facility] Sodium Chloride 10 ml 07/21/17 11:36 07/21/17 12:46 IV 10 ml PRN PRN Administration saline lock flushes Spironolactone 12.5 mg 07/19/17 06:00 07/21/17 04:58 Aldactone PO 12.5 mg DAILY [facility] Administration Trazodone HCl 50 mg 07/21/17 22:00 Desyrel PO QHS [facility] Tuberculin PPD 5 tu 07/26/17 10:00 Tubersol, Aplisol, Ppd ID 07/26/17 10:01 X1 ONE Warfarin Sodium 1 mg 07/21/17 17:00 Coumadin (Pbkc) PO DAILY@1700 [facility] Problem List (Last Reviewed 05/17/17 @ 15:28 by Trice Bowling) Critical aortic valve stenosis (Chronic) Mitral valve insufficiency (Chronic) Acute on chronic combined systolic (congestive) and diastolic (congestive) heart failure (Acute) Diabetes mellitus (Chronic) Chronic kidney disease (Chronic) Vital Signs Temp Pulse Resp BP Pulse Ox 98.3 F 79 18 100/65 94 07/21/17 10:35 07/21/17 10:35 07/21/17 10:35 07/21/17 10:35 07/21/17 10:35 Oxygen Delivery Method Room Air Weight: 78.2 kg Body Mass Index (BMI) 29.5 Finger Stick Blood Glucose 600 Sodium 136 mmol/L (136-145) 07/21/17 11:00 Potassium 4.7 mmol/L (3.5-5.1) 07/21/17 11:00 Chloride 101 mmol/L (98-107) 07/21/17 11:00 Carbon Dioxide 26.0 mmol/L (21.0-32.0) 07/21/17 11:00 Anion Gap 9 (5-15) 07/21/17 11:00 BUN 20 mg/dL (7-18) H 07/21/17 11:00 Creatinine 1.49 mg/dL (0.70-1.30) H 07/21/17 11:00 Est GFR (MDRD) Af Amer 59 mL/min (>60) L 07/21/17 11:00 Est GFR (MDRD) Non-Af 49 mL/min (>60) L 07/21/17 11:00 BUN/Creatinine Ratio 13.4 RATIO (10-20) 07/21/17 11:00 Glucose 314 mg/dL (74-106) H 07/21/17 11:00 Assessment/Plan: 1) Pain APAP prn. Continue to monitor daily pain scores, prn medication use. 2) AFib/CAD/CHF Amiodarone, metoprolol, warfarin goal INR 2-3, ASA, spironolactone. BP/HR within goal ranges, K wnl, BUN/SCr at baseline. Continue to monitor BP/HR, renal function, electrolytes, PT/INR, s/s bleeding. 3) DM2 Insulin detemir twice daily. BGT trending up from lows. Continue to monitor BGT, s/s hyper/hypoglycemia. 4) Nutrition Glucerna, Glucose prn, Fe, multivitamin. Continue to monitor clinically. 5) Sleep Melatonin and trazodone at HS. Continue to monitor for insomnia. 6) Derm Nystatin powder topically. Continue to monitor clinically. Psychotropic Medications: None Unnecessary Medications: None Bowel Regimen: 7) Senna/s, PEG, prn bisacodyl. Continue to monitor prn medication use, for constipation/diarrhea. Date of Note:: 07/21/17 - Provider Comments Provider responsibility: Provider responsible to enter orders to implement recommendations <Ramesh Pabon Chi - Last Filed: 07/21/17 19:47> Progress Note - Pharmacy Subjective: [] Objective: Allergies No Known Allergies Allergy (Verified 06/26/17 14:39) Home Medications Medication Instructions Recorded Multivitamins,Therapeutic 1 tab PO DAILY 07/02/14 [Multivitamin] Acetaminophen 650 mg PO Q6H PRN 07/18/17 Albuterol Inhaler [Ventolin Hfa] 2 puff INHALATION Q4H PRN PRN 07/18/17 Aspirin [Aspirin, Baby] 81 mg PO DAILY@0800 07/18/17 Current Medications Generic Name Dose Route Start Last Admin Trade Name Freq PRN Reason Stop Dose Admin Acetaminophen 1,000 mg 07/18/17 21:53 Tylenol PO Q8H PRN PRN MILD PAIN (1-3/10) Albuterol Sulfate 2 puff 07/18/17 21:27 Ventolin Hfa (Sp) INHALATION Q4H PRN PRN SHORTNESS OF BREATH Amiodarone HCl 400 mg 07/19/17 06:00 07/21/17 04:58 Cordarone PO 07/25/17 06:01 400 mg DAILY ZOHREH Administration Amiodarone HCl 200 mg 07/26/17 06:00 Cordarone PO 08/25/17 06:01 DAILY ZOHREH Aspirin 81 mg 07/19/17 08:00 07/21/17 08:03 Aspirin, Baby PO 81 mg DAILY@0800 ZOHREH Administration Bisacodyl 10 mg 07/18/17 21:52 Dulcolax PO DAILY PRN PRN Constipation Dextrose 0 gm 07/21/17 11:35 D50w Syringe IV X1 PRN Hypoglycemia Protocol Glucagon 1 mg 07/21/17 11:35 IM .X1 PRN Hypoglycemia Glucose 15 gm 07/18/17 21:29 Instant Glucose PO PRN PRN HYPOGLYCEMIA Sodium Chloride 500 mls @ 50 mls/hr 07/21/17 12:00 07/21/17 13:07 IV 07/21/17 21:59 50 mls/hr .Q10H ZOHREH Administration Insulin Detemir 5 units 07/21/17 06:00 07/21/17 17:43 Levemir (Bkc) SC 5 units BID ZOHREH Administration Melatonin 6 mg 07/18/17 22:00 07/20/17 21:16 Melatonin PO 6 mg QHS [facility] Administration Metoprolol Succinate 12.5 mg 07/19/17 06:00 07/21/17 17:42 Toprol Xl (Beta Severo) PO 12.5 mg BID ZOHREH Administration Multivitamins 1 tablet 07/19/17 08:00 07/21/17 08:03 Multivitamin PO 1 tablet DAILYCM ZOHREH Administration Nutritional Formula (Lactose Free) 120 ml 07/19/17 07:45 07/21/17 17:44 Glucerna Shake PO 120 ml TIDCM [facility] Administration Nystatin 1 applic 07/19/17 06:00 07/21/17 04:59 Mycostatin Powder TOPICAL 1 applicatio 0600,2200 [facility] Administration Protocol Polyethylene Glycol 17 gm 07/19/17 06:00 07/21/17 04:57 Miralax PO Not Given DAILY [facility] Polysaccharide Iron Complex 150 mg 07/22/17 08:00 07/21/17 12:44 Ferrex 150 PO 150 mg DAILYCM [facility] Administration Senna/Docusate Sodium 1 tablet 07/19/17 06:00 07/21/17 17:43 Senokot-S, Shantell-Colace PO 1 tablet BID [facility] Administration Sodium Chloride 10 ml 07/21/17 11:36 07/21/17 12:46 IV 10 ml PRN PRN Administration saline lock flushes Spironolactone 12.5 mg 07/19/17 06:00 07/21/17 04:58 Aldactone PO 12.5 mg DAILY [facility] Administration Trazodone HCl 50 mg 07/21/17 22:00 Desyrel PO QHS [facility] Tuberculin PPD 5 tu 07/26/17 10:00 Tubersol, Aplisol, Ppd ID 07/26/17 10:01 X1 ONE Warfarin Sodium 1 mg 07/21/17 17:00 07/21/17 17:42 Coumadin (Pbkc) PO 1 mg DAILY@1700 [facility] Administration Problem List (Last Reviewed 05/17/17 @ 15:28 by Trice Bowling) Critical aortic valve stenosis (Chronic) Mitral valve insufficiency (Chronic) Acute on chronic combined systolic (congestive) and diastolic (congestive) heart failure (Acute) Diabetes mellitus (Chronic) Chronic kidney disease (Chronic) Vital Signs Temp Pulse Resp BP Pulse Ox 98.3 F 72 16 118/75 94 07/21/17 16:00 07/21/17 17:42 07/21/17 16:00 07/21/17 17:42 07/21/17 16:00 Oxygen Delivery Method Room Air Weight: 78.2 kg Body Mass Index (BMI) 29.5 Finger Stick Blood Glucose 600 Sodium 136 mmol/L (136-145) 07/21/17 11:00 Potassium 4.7 mmol/L (3.5-5.1) 07/21/17 11:00 Chloride 101 mmol/L (98-107) 07/21/17 11:00 Carbon Dioxide 26.0 mmol/L (21.0-32.0) 07/21/17 11:00 Anion Gap 9 (5-15) 07/21/17 11:00 BUN 20 mg/dL (7-18) H 07/21/17 11:00 Creatinine 1.49 mg/dL (0.70-1.30) H 07/21/17 11:00 Est GFR (MDRD) Af Amer 59 mL/min (>60) L 07/21/17 11:00 Est GFR (MDRD) Non-Af 49 mL/min (>60) L 07/21/17 11:00 BUN/Creatinine Ratio 13.4 RATIO (10-20) 07/21/17 11:00 Glucose 314 mg/dL (74-106) H 07/21/17 11:00 Assessment/Plan: Psychotropic Medications: Unnecessary Medications: Bowel Regimen: - Provider Comments Provider responsibility: Provider responsible to enter orders to implement recommendations Provider Comments to Recommendations by Pharmacy: Agree
--- NOTE | 2017-07-21 15:51 | PHA.CONS_ITS ---
<DucVern winters D - Last Filed: 07/21/17 15:45> Progress Note - Pharmacy Subjective: TCU Admission Objective: Allergies No Known Allergies Allergy (Verified 06/26/17 14:39) Home Medications Medication Instructions Recorded Multivitamins,Therapeutic 1 tab PO DAILY 07/02/14 [Multivitamin] Acetaminophen 650 mg PO Q6H PRN 07/18/17 Albuterol Inhaler [Ventolin Hfa] 2 puff INHALATION Q4H PRN PRN 07/18/17 Aspirin [Aspirin, Baby] 81 mg PO DAILY@0800 07/18/17 Current Medications Generic Name Dose Route Start Last Admin Trade Name Freq PRN Reason Stop Dose Admin Acetaminophen 1,000 mg 07/18/17 21:53 Tylenol PO Q8H PRN PRN MILD PAIN (1-310) Albuterol Sulfate 2 puff 07/18/17 21:27 Ventolin Hfa (Sp) INHALATION Q4H PRN PRN SHORTNESS OF BREATH Amiodarone HCl 400 mg 07/19/17 06:00 07/21/17 04:58 Cordarone PO 07/25/17 06:01 400 mg DAILY ZOHREH Administration Amiodarone HCl 200 mg 07/26/17 06:00 Cordarone PO 08/25/17 06:01 DAILY ZOHREH Aspirin 81 mg 07/19/17 08:00 07/21/17 08:03 Aspirin, Baby PO 81 mg DAILY@0800 ZOHREH Administration Bisacodyl 10 mg 07/18/17 21:52 Dulcolax PO DAILY PRN PRN Constipation Dextrose 0 gm 07/21/17 11:35 D50w Syringe IV X1 PRN Hypoglycemia Protocol Glucagon 1 mg 07/21/17 11:35 IM .X1 PRN Hypoglycemia Glucose 15 gm 07/18/17 21:29 Instant Glucose PO PRN PRN HYPOGLYCEMIA Sodium Chloride 500 mls @ 50 mls/hr 07/21/17 12:00 07/21/17 13:07 IV 07/21/17 21:59 50 mls/hr .Q10H ZOHREH Administration Insulin Detemir 5 units 07/21/17 06:00 07/21/17 08:04 Levemir (Bkc) SC 5 units BID ZOHREH Administration Melatonin 6 mg 07/18/17 22:00 07/20/17 21:16 Melatonin PO 6 mg QHS ZOHREH Administration Metoprolol Succinate 12.5 mg 07/19/17 06:00 07/21/17 04:59 Toprol Xl (Beta Severo) PO 12.5 mg BID COUNT INCLUDES THE [facility] Administration Multivitamins 1 tablet 07/19/17 08:00 07/21/17 08:03 Multivitamin PO 1 tablet DAILYCM COUNT INCLUDES THE [facility] Administration Nutritional Formula (Lactose Free) 120 ml 07/19/17 07:45 07/21/17 12:46 Glucerna Shake PO 120 ml TIDCM COUNT INCLUDES THE [facility] Administration Nystatin 1 applic 07/19/17 06:00 07/21/17 04:59 Mycostatin Powder TOPICAL 1 applicatio 0600,2200 COUNT INCLUDES THE [facility] Administration Protocol Polyethylene Glycol 17 gm 07/19/17 06:00 07/21/17 04:57 Miralax PO Not Given DAILY COUNT INCLUDES THE [facility] Polysaccharide Iron Complex 150 mg 07/22/17 08:00 07/21/17 12:44 Ferrex 150 PO 150 mg DAILYCM COUNT INCLUDES THE [facility] Administration Senna/Docusate Sodium 1 tablet 07/19/17 06:00 07/21/17 04:57 Senokot-S, Shantell-Colace PO Not Given BID COUNT INCLUDES THE [facility] Sodium Chloride 10 ml 07/21/17 11:36 07/21/17 12:46 IV 10 ml PRN PRN Administration saline lock flushes Spironolactone 12.5 mg 07/19/17 06:00 07/21/17 04:58 Aldactone PO 12.5 mg DAILY COUNT INCLUDES THE [facility] Administration Trazodone HCl 50 mg 07/21/17 22:00 Desyrel PO QHS COUNT INCLUDES THE [facility] Tuberculin PPD 5 tu 07/26/17 10:00 Tubersol, Aplisol, Ppd ID 07/26/17 10:01 X1 ONE Warfarin Sodium 1 mg 07/21/17 17:00 Coumadin (Pbkc) PO DAILY@1700 COUNT INCLUDES THE [facility] Problem List (Last Reviewed 05/17/17 @ 15:28 by Trice Bowling) Critical aortic valve stenosis (Chronic) Mitral valve insufficiency (Chronic) Acute on chronic combined systolic (congestive) and diastolic (congestive) heart failure (Acute) Diabetes mellitus (Chronic) Chronic kidney disease (Chronic) Vital Signs Temp Pulse Resp BP Pulse Ox 98.3 F 79 18 100/65 94 07/21/17 10:35 07/21/17 10:35 07/21/17 10:35 07/21/17 10:35 07/21/17 10:35 Oxygen Delivery Method Room Air Weight: 78.2 kg Body Mass Index (BMI) 29.5 Finger Stick Blood Glucose 600 Sodium 136 mmol/L (136-145) 07/21/17 11:00 Potassium 4.7 mmol/L (3.5-5.1) 07/21/17 11:00 Chloride 101 mmol/L (98-107) 07/21/17 11:00 Carbon Dioxide 26.0 mmol/L (21.0-32.0) 07/21/17 11:00 Anion Gap 9 (5-15) 07/21/17 11:00 BUN 20 mg/dL (7-18) H 07/21/17 11:00 Creatinine 1.49 mg/dL (0.70-1.30) H 07/21/17 11:00 Est GFR (MDRD) Af Amer 59 mL/min (>60) L 07/21/17 11:00 Est GFR (MDRD) Non-Af 49 mL/min (>60) L 07/21/17 11:00 BUN/Creatinine Ratio 13.4 RATIO (10-20) 07/21/17 11:00 Glucose 314 mg/dL (74-106) H 07/21/17 11:00 Assessment/Plan: 1) Pain APAP prn. Continue to monitor daily pain scores, prn medication use. 2) AFib/CAD/CHF Amiodarone, metoprolol, warfarin goal INR 2-3, ASA, spironolactone. BP/HR within goal ranges, K wnl, BUN/SCr at baseline. Continue to monitor BP/HR, renal function, electrolytes, PT/INR, s/s bleeding. 3) DM2 Insulin detemir twice daily. BGT trending up from lows. Continue to monitor BGT, s/s hyper/hypoglycemia. 4) Nutrition Glucerna, Glucose prn, Fe, multivitamin. Continue to monitor clinically. 5) Sleep Melatonin and trazodone at HS. Continue to monitor for insomnia. 6) Derm Nystatin powder topically. Continue to monitor clinically. Psychotropic Medications: None Unnecessary Medications: None Bowel Regimen: 7) Senna/s, PEG, prn bisacodyl. Continue to monitor prn medication use, for constipation/diarrhea. Date of Note:: 07/21/17 - Provider Comments Provider responsibility: Provider responsible to enter orders to implement recommendations <Ramesh Pabon Chi - Last Filed: 07/21/17 19:47> Progress Note - Pharmacy Subjective: [] Objective: Allergies No Known Allergies Allergy (Verified 06/26/17 14:39) Home Medications Medication Instructions Recorded Multivitamins,Therapeutic 1 tab PO DAILY 07/02/14 [Multivitamin] Acetaminophen 650 mg PO Q6H PRN 07/18/17 Albuterol Inhaler [Ventolin Hfa] 2 puff INHALATION Q4H PRN PRN 07/18/17 Aspirin [Aspirin, Baby] 81 mg PO DAILY@0800 07/18/17 Current Medications Generic Name Dose Route Start Last Admin Trade Name Freq PRN Reason Stop Dose Admin Acetaminophen 1,000 mg 07/18/17 21:53 Tylenol PO Q8H PRN PRN MILD PAIN (1-3/10) Albuterol Sulfate 2 puff 07/18/17 21:27 Ventolin Hfa (Sp) INHALATION Q4H PRN PRN SHORTNESS OF BREATH Amiodarone HCl 400 mg 07/19/17 06:00 07/21/17 04:58 Cordarone PO 07/25/17 06:01 400 mg DAILY ZOHREH Administration Amiodarone HCl 200 mg 07/26/17 06:00 Cordarone PO 08/25/17 06:01 DAILY ZOHREH Aspirin 81 mg 07/19/17 08:00 07/21/17 08:03 Aspirin, Baby PO 81 mg DAILY@0800 ZOHREH Administration Bisacodyl 10 mg 07/18/17 21:52 Dulcolax PO DAILY PRN PRN Constipation Dextrose 0 gm 07/21/17 11:35 D50w Syringe IV X1 PRN Hypoglycemia Protocol Glucagon 1 mg 07/21/17 11:35 IM .X1 PRN Hypoglycemia Glucose 15 gm 07/18/17 21:29 Instant Glucose PO PRN PRN HYPOGLYCEMIA Sodium Chloride 500 mls @ 50 mls/hr 07/21/17 12:00 07/21/17 13:07 IV 07/21/17 21:59 50 mls/hr .Q10H ZOHREH Administration Insulin Detemir 5 units 07/21/17 06:00 07/21/17 17:43 Levemir (Bkc) SC 5 units BID ZOHREH Administration Melatonin 6 mg 07/18/17 22:00 07/20/17 21:16 Melatonin PO 6 mg QHS COUNT INCLUDES THE [facility] Administration Metoprolol Succinate 12.5 mg 07/19/17 06:00 07/21/17 17:42 Toprol Xl (Beta Severo) PO 12.5 mg BID ZOHREH Administration Multivitamins 1 tablet 07/19/17 08:00 07/21/17 08:03 Multivitamin PO 1 tablet DAILYCM ZOHREH Administration Nutritional Formula (Lactose Free) 120 ml 07/19/17 07:45 07/21/17 17:44 Glucerna Shake PO 120 ml TIDCM COUNT INCLUDES THE [facility] Administration Nystatin 1 applic 07/19/17 06:00 07/21/17 04:59 Mycostatin Powder TOPICAL 1 applicatio 0600,2200 COUNT INCLUDES THE [facility] Administration Protocol Polyethylene Glycol 17 gm 07/19/17 06:00 07/21/17 04:57 Miralax PO Not Given DAILY COUNT INCLUDES THE [facility] Polysaccharide Iron Complex 150 mg 07/22/17 08:00 07/21/17 12:44 Ferrex 150 PO 150 mg DAILYCM COUNT INCLUDES THE [facility] Administration Senna/Docusate Sodium 1 tablet 07/19/17 06:00 07/21/17 17:43 Senokot-S, Shantell-Colace PO 1 tablet BID COUNT INCLUDES THE [facility] Administration Sodium Chloride 10 ml 07/21/17 11:36 07/21/17 12:46 IV 10 ml PRN PRN Administration saline lock flushes Spironolactone 12.5 mg 07/19/17 06:00 07/21/17 04:58 Aldactone PO 12.5 mg DAILY COUNT INCLUDES THE [facility] Administration Trazodone HCl 50 mg 07/21/17 22:00 Desyrel PO QHS COUNT INCLUDES THE [facility] Tuberculin PPD 5 tu 07/26/17 10:00 Tubersol, Aplisol, Ppd ID 07/26/17 10:01 X1 ONE Warfarin Sodium 1 mg 07/21/17 17:00 07/21/17 17:42 Coumadin (Pbkc) PO 1 mg DAILY@1700 COUNT INCLUDES THE [facility] Administration Problem List (Last Reviewed 05/17/17 @ 15:28 by Trice Bowling) Critical aortic valve stenosis (Chronic) Mitral valve insufficiency (Chronic) Acute on chronic combined systolic (congestive) and diastolic (congestive) heart failure (Acute) Diabetes mellitus (Chronic) Chronic kidney disease (Chronic) Vital Signs Temp Pulse Resp BP Pulse Ox 98.3 F 72 16 118/75 94 07/21/17 16:00 07/21/17 17:42 07/21/17 16:00 07/21/17 17:42 07/21/17 16:00 Oxygen Delivery Method Room Air Weight: 78.2 kg Body Mass Index (BMI) 29.5 Finger Stick Blood Glucose 600 Sodium 136 mmol/L (136-145) 07/21/17 11:00 Potassium 4.7 mmol/L (3.5-5.1) 07/21/17 11:00 Chloride 101 mmol/L (98-107) 07/21/17 11:00 Carbon Dioxide 26.0 mmol/L (21.0-32.0) 07/21/17 11:00 Anion Gap 9 (5-15) 07/21/17 11:00 BUN 20 mg/dL (7-18) H 07/21/17 11:00 Creatinine 1.49 mg/dL (0.70-1.30) H 07/21/17 11:00 Est GFR (MDRD) Af Amer 59 mL/min (>60) L 07/21/17 11:00 Est GFR (MDRD) Non-Af 49 mL/min (>60) L 07/21/17 11:00 BUN/Creatinine Ratio 13.4 RATIO (10-20) 07/21/17 11:00 Glucose 314 mg/dL (74-106) H 07/21/17 11:00 Assessment/Plan: Psychotropic Medications: Unnecessary Medications: Bowel Regimen: - Provider Comments Provider responsibility: Provider responsible to enter orders to implement recommendations Provider Comments to Recommendations by Pharmacy: Agree
[2017-07-21 16:00] VITALS: BP 118/75; PULSE 72; RESP 16; TEMP 36.8; O2SAT 94
[2017-07-21 16:46] LABS: Bedside Glucose 185 mg/dL (70-110)
[2017-07-21 17:42] VITALS: BP 118/75; PULSE 72
[2017-07-21] MEDS: Senna/Docusate Sodium 1 Tablet PO (17:43)
[2017-07-21 21:06] LABS: Bedside Glucose 277 mg/dL (70-110)
[2017-07-21] MEDS: MELATONIN 3 MG TABLET 6 MG PO (21:08)
[2017-07-21] MEDS: traZODone 50 MG Tablet PO (21:09)
--- NOTE | 2017-07-21 23:50 | NURSING ---
PT CALLED OUT TO USE URINAL. BATTERY PACK ON LIFE VEST WAS FLASHING RED. BATTERY CHANGED PER DIRECTIONS IN BOOK. BATTERY PACK DISPLAYED PTS NAME AND A GREEN BATTERY EXPECTED PER MANUAL. PER MANUAL, BATTERY TO BE CHANGED Q12H. NURSING COMMUNICATION ENTERED.
--- NOTE | 2017-07-21 23:55 | NURSING ---
PT CALLED OUT TO USE URINAL. BATTERY PACK ON LIFE VEST WAS FLASHING RED. BATTERY CHANGED PER DIRECTIONS IN BOOK. BATTERY PACK DISPLAYED PTS NAME AND A GREEN BATTERY EXPECTED PER MANUAL. PER MANUAL, BATTERY TO BE CHANGED Q24H. NURSING COMMUNICATION ENTERED.
[2017-07-22] VITALS (7 sets, daily range): BP systolic 113–118; BP diastolic 75; PULSE 77–80; RESP 18–36; TEMP 36.4–37; O2SAT 90–98
--- NOTE | 2017-07-22 01:59 | RAD_ITS ---
STUDY: X-RAY CHEST REASON FOR EXAM: Male, 77 years old. Cough TECHNIQUE: Single frontal view COMPARISON: None. FINDINGS: There is suboptimal inspiration. There are bibasilar infiltrates and small effusions. There is NO pneumothorax. The heart is enlarged. Normal mediastinum and chris. Normal visualized pulmonary arteries. Normal visualized aortic arch and descending thoracic aorta. Normal visualized thoracic spine. Normal visualized ribs, clavicles, and shoulders. There is no demonstrated abnormality of the visualized soft tissue structures of the upper abdomen. RAD/Chest 1 View (Portable) IMPRESSION: There is suboptimal inspiration. There are bibasilar infiltrates and small effusions. There is NO pneumothorax. The heart is enlarged. Electronically Signed: Rakan Courtney MD at 3:13 EST , Service support ,
--- NOTE | 2017-07-22 02:10 | NURSING ---
Addendum entered by Melina Fernandez 07/22/17 06:38: Dr. Pabon reviewed CXR, N.O. for Cefdinir for 7 days and a Z-pack. Pt updated. Original Note: Pt has a persistent nonproductive strong moist cough. R 36 per min, pt stating that he feels like he ran 20 miles, LS assessed, pulse ox 90%, pt placed on 2L O2. Dr. Pabon updated, N.O. for CXR, Robitussin AC Q4H PRN. Pt updated on new orders, pulse ox checked again, 94% now, R 32 per min. Continuing to monitor.
[2017-07-22] MEDS: guaiFENesin/Codeine 5 ML UDC 10 ML PO ×4 (02:37→22:10)
[2017-07-22] MEDS: Metoprolol(XL)Succ 25 MG Tablet 12.5 MG PO ×2 (04:35→18:03)
[2017-07-22] MEDS: Spironolactone 25 MG Tablet 12.5 MG PO (04:35)
[2017-07-22] MEDS: Amiodarone 200 MG Tablet 400 MG PO (04:35)
[2017-07-22] MEDS: Senna/Docusate Sodium 1 Tablet PO ×2 (04:35→18:05)
[2017-07-22] MEDS: Nystatin Powder 15gm Bottle 1 APPLIC TOPICAL ×2 (04:36→22:11)
[2017-07-22 07:01] LABS: Bedside Glucose 158 mg/dL (70-110)
[2017-07-22] MEDS: Azithromycin 250 MG Tablet 500 MG PO (07:05)
[2017-07-22] MEDS: Cefdinir 300 MG Capsule PO ×2 (07:06→07:27)
[2017-07-22] MEDS: Menthol/Lanolin/Calamine/Znox 113 GM Tube 1 APPLIC TOPICAL ×2 (07:08→18:04)
[2017-07-22 07:15] LABS: International Normalized Ratio 2.8; Prothrombin Time (Protime)PT. 28.4 SECONDS (11.7-14.9)
[2017-07-22] MEDS: Aspirin 81 MG TAB.CHEW PO (07:23)
[2017-07-22] MEDS: Glucerna Shake 120 ML LIQUID PO ×3 (07:23→18:04)
[2017-07-22] MEDS: Multivitamins,Therapeutic Tablet 1 TABLET PO (07:23)
[2017-07-22] MEDS: Iron Polysaccharide Complex 150 MG CAPSULE PO (07:23)
[2017-07-22 12:11] LABS: Bedside Glucose 211 mg/dL (70-110)
[2017-07-22] MEDS: 0.9% Saline Lock 10 ML Syringe IV (13:19)
[2017-07-22 17:00] LABS: Bedside Glucose 190 mg/dL (70-110)
[2017-07-22 20:00] LABS: Bedside Glucose 191 mg/dL (70-110)
[2017-07-22 21:16] LABS: Bedside Glucose 168 mg/dL (70-110)
[2017-07-22] MEDS: traZODone 50 MG Tablet PO (22:10)
[2017-07-22] MEDS: MELATONIN 3 MG TABLET 6 MG PO (22:10)
[2017-07-23 05:30] VITALS: BP 116/75; PULSE 108; TEMP 36.3; O2SAT 94
[2017-07-23 05:31] LABS: Bedside Glucose 206 mg/dL (70-110)
[2017-07-23 06:19] LABS: International Normalized Ratio 2.7; Prothrombin Time (Protime)PT. 27.3 SECONDS (11.7-14.9)
[2017-07-23 06:25] LABS: Absolute Neutrophil Count 3.2 X10^3/uL (2.0-7.7); Eosinophil# 0.04 X10^3/uL; Eosinophils% 0.8 % (0-5); Hematocrit 32.2 % (40-54); Hemoglobin 9.7 g/dl (13.0-16.5); Lymphocyte % 18.4 % (19-41); Mean Corp Hgb Conc 30.1 g/gl (32-36); Mean Corpuscular Hgb 32.7 pg (27.0-32.0); Mean Corpuscular Volume 108.4 fL (80-94); Mean Platelet Vol. 10.1 fl (6.2-12.0); Monocyte# 0.69 X10^3/uL; Monocyte% 14.1 % (0-10); Neutrophil # 3.22 X10^3/uL (2.7-7.7); Neutrophil % 65.9 % (47-70); Platelet Count 223 K/mm3 (150-450); RBC Distribution Width CV 18.7 % (11.6-14.6); RBC Distribution Width SD 73.3 fl (35.1-43.9); Red Blood Count 2.97 M/mm3 (4.6-6.2); White Blood Count 4.9 K/mm3 (4.4-11.0)
[2017-07-23 06:30] LABS: Differential Indicated SCAN CRITERIA MET; POSITIVE COUNT NO; POSITIVE DIFFERENTIAL NO; POSITIVE MORPHOLOGY YES
[2017-07-23 06:44] LABS: Anisocytosis 3+; Differential Comment SCANNED; Macrocytosis 2+
[2017-07-23 06:51] LABS: Bedside Glucose 203 mg/dL (70-110)
--- NOTE | 2017-07-23 06:51 | NURSING ---
Addendum entered by Shawnee Ontiveros 07/23/17 07:17: updated. States she will be in. Original Note: Pt very sweaty and lethargic. Dr. Pabon updated. N.O to send to ER.
--- NOTE | 2017-07-23 10:13 | NURSING ---
Per household personal assistant pt is a full admit to ICU
[2017-07-23 10:29] LABS: Pathologist Review Reviewed
--- NOTE | 2017-07-23 12:56 | CASEMGMT ---
Insurance Notified insurance of resident discharge on 07/23/17 to acute hospital setting. Auth#[id number] Jade MAY, [employer]
--- NOTE | 2017-07-23 18:59 | PCM.DC ---
- Discharge Diagnoses Current Active Problems: Current Active and Chronic Problems (Last Reviewed 05/17/17 @ 15:28 by Trice Bowling) Acute respiratory failure with hypercapnia (Acute) Heart failure with reduced ejection fraction (Acute) H/O aortic valve replacement (Chronic) Metabolic encephalopathy (Acute) You will use the following diet at home:: No restrictions, Regular Your food should be the consistency of: Regular Your liquids should be the consistency of: Regular/Thin Weight Bearing Status: Weight bearing as tolerated Call your doctor if you observe: Fever of 101 or Higher, Inability to urinate, Inability to have a bowel movement, Shortness of breath, Chest pain, Uncontrolled pain Allergies/Adverse Reactions: Allergies No Known Allergies Allergy (Verified 07/23/17 06:54) Medications to take at Discharge Multivitamins,Therapeutic [Multivitamin] 1 tab PO DAILY 07/02/14 Acetaminophen 650 mg PO Q6H PRN 07/18/17 Albuterol Inhaler [Ventolin Hfa] 2 puff INHALATION Q4H PRN PRN 07/18/17 Aspirin [Aspirin, Baby] 81 mg PO DAILY@0800 07/18/17 Amiodarone HCl 400 mg PO DAILY 07/23/17 Azithromycin 250 mg PO DAILY 07/23/17 Cefdinir 300 mg PO BID 07/23/17 Insulin Detemir [Levemir (BKC)] 5 units SC BID 07/23/17 Iron Polysaccharide Complex [Ferrex 150] 150 mg PO DAILYCM 07/23/17 Melatonin 3 mg PO DAILY 07/23/17 Metoprolol Succinate [Toprol Xl] 12.5 mg PO BID 07/23/17 Polyethylene Glycol 3350 [Miralax] 17 gm PO DAILY 07/23/17 Senna [Senokot] 1 tablet PO BID 07/23/17 Spironolactone [Aldactone] 12.5 mg PO DAILY 07/23/17 Trazodone HCl [Desyrel] 50 mg PO QHS 07/23/17 Warfarin [Coumadin (PBKC)] 1 mg PO DAILY 07/23/17 Primary Care Physician: Dusty Almanza MD [Primary Care Provider] - Please follow up with your Primary Care Physician in: 1 week after hospitalization. Proposed Discharge Date: 07/23/17
--- NOTE | 2017-07-23 19:02 | PCM.DC.SUM ---
Discharge Date and Diagnosis - Problem List Patient Problems: Active and Suspected Problems (Last Reviewed 05/17/17 @ 15:28 by Trice Bowling) Acute respiratory failure with hypercapnia (Acute) Heart failure with reduced ejection fraction (Acute) Metabolic encephalopathy (Acute) Date of Admission: 07/18/17 Date of Discharge: 07/23/17 - Primary Discharge Diagnosis Active and Suspected Problems (Last Reviewed 05/17/17 @ 15:28 by Trice Bowling) Acute respiratory failure with hypercapnia (Acute) Heart failure with reduced ejection fraction (Acute) Metabolic encephalopathy (Acute) - Secondary Discharge Diagnosis Chronic Problems (Last Reviewed 05/17/17 @ 15:28 by Trice Bowling) Mitral valve insufficiency (Chronic) Repair [facility] 06/2017 Diabetes mellitus (Chronic) Chronic kidney disease (Chronic) H/O aortic valve replacement (Chronic) 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) Type 2 diabetes mellitus with hyperglycemia (Chronic) Cardiomyopathy in disease classified elsewhere (Chronic) 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) Hypertension (Chronic) Dyspnea on exertion (Chronic) Allergic rhinitis (Chronic) Hospital Course and Treatment Consultations 07/18/17 Consult: Onc/Wound/javascript engineer Routine Comment: 07/18/17 22:35 Consult: Onc/Wound/javascript engineer Routine Comment: pressure area to coccyx Reason for Consult:: pressure area to coccyx Operations: cholecystecomy - Laparoscopic converted to open Procedures: None Summary of Care Provided: The patient is a 77 year old Male with below past medical history significant for 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 07/23/2017 Resident having episodes of intermittent unresponsiveness. Discharge to [facility] Department for evaluation, admission to hospital. Discharge Diet: No Restrictions Discharge Activity: Use Walker Weight Bearing Status: Weight bearing as tolerated Call your doctor if you observe: Fever of 101 or Higher, Inability to urinate, Inability to have a bowel movement, Shortness of breath, Chest pain, Uncontrolled pain Home Medications: Medications to take at Discharge Multivitamins,Therapeutic [Multivitamin] 1 tab PO DAILY 07/02/14 Acetaminophen 650 mg PO Q6H PRN 07/18/17 Albuterol Inhaler [Ventolin Hfa] 2 puff INHALATION Q4H PRN PRN 07/18/17 Aspirin [Aspirin, Baby] 81 mg PO DAILY@0800 07/18/17 Amiodarone HCl 400 mg PO DAILY 07/23/17 Azithromycin 250 mg PO DAILY 07/23/17 Cefdinir 300 mg PO BID 07/23/17 Insulin Detemir [Levemir (BKC)] 5 units SC BID 07/23/17 Iron Polysaccharide Complex [Ferrex 150] 150 mg PO DAILYCM 07/23/17 Melatonin 3 mg PO DAILY 07/23/17 Metoprolol Succinate [Toprol Xl] 12.5 mg PO BID 07/23/17 Polyethylene Glycol 3350 [Miralax] 17 gm PO DAILY 07/23/17 Senna [Senokot] 1 tablet PO BID 07/23/17 Spironolactone [Aldactone] 12.5 mg PO DAILY 07/23/17 Trazodone HCl [Desyrel] 50 mg PO QHS 07/23/17 Warfarin [Coumadin (PBKC)] 1 mg PO DAILY 07/23/17 Primary Care Physician: Dusty Almanza MD [Primary Care Provider] - Please follow up with your Primary Care Physician in: 1 week after hospitalization. Disposition: Acute care Hospital Minutes spent on discharge:: 30 Patient Condition:: Critical Meaningful Use Info Meaningful Use Diagnoses (Choose all that apply): None applicable
--- NOTE | 2017-07-31 09:40 | MDS.RN ---
Information for the mds was obtained from review of the clinical record, interview of resident, staff, and direct observation of resident's care.
== END 2017-07-23 10:20 | disposition short-term general hospital (02) | DRG 949 ==
PROVIDERS: Admitting Provider Family Medicine Geriatric Medicine; Family Provider Family Medicine; PCP Family Medicine; Visit Provider Family Medicine Geriatric Medicine
DX: Z48.812 Encounter for surgical aftercare following surgery on the circulatory system (principal); I50.43 Acute on chronic combined systolic (congestive) and diastolic (congestive) heart failure; J96.02 Acute respiratory failure with hypercapnia; G93.41 Metabolic encephalopathy; I13.0 Hypertensive heart and chronic kidney disease with heart failure and stage 1 through stage 4 chronic kidney disease, or unspecified chronic kidney disease; E11.22 Type 2 diabetes mellitus with diabetic chronic kidney disease; I48.91 Unspecified atrial fibrillation; N18.3 Chronic kidney disease, stage 3 (moderate); I25.10 Atherosclerotic heart disease of native coronary artery without angina pectoris; E78.5 Hyperlipidemia, unspecified; E11.65 Type 2 diabetes mellitus with hyperglycemia; Z95.2 Presence of prosthetic heart valve; Z79.899 Other long term (current) drug therapy; Z87.891 Personal history of nicotine dependence; Z79.4 Long term (current) use of insulin
CPT/HCPCS: 36415; 71045; 80048; 82962; 85025; 85610; 87633; 92523; 92526; 97110; 97116; 97162; 97165; 97530; 97535; 97802; J7040; A4216

== ENCOUNTER 2017-07-19 05:10 | Emergency (ER) | payer MEDICARE, SELFPAY ==
[2017-07-19 05:11] VITALS: BP 119/72; PULSE 91; RESP 19; TEMP 36.7; O2SAT 92; BMI 29.7
--- NOTE | 2017-07-19 05:19 | CT_ITS ---
STUDY: CT CERVICAL SPINE WITHOUT CONTRAST REASON FOR EXAM: Male, 77 years old. Patient fell RADIATION DOSAGE (If Supplied By Facility): CTDIvol = ( 18.83 ) mGy, DLP = ( 400.98 ) mGycm TECHNIQUE: High resolution transaxial imaging was performed without contrast material. Sagittal and coronal images were reconstructed. Individualized dose optimization techniques were used for this CT. COMPARISON: None FINDINGS: Normal craniovertebral junction. Normal anterior atlantoaxial articulation. Normal odontoid process. There is straightening of the cervical spine most likely secondary to spasm. There are no acute fractures or dislocations but there is generative changes of the spine especially at C5-C6. The central canal is clear. CT/Spine Cervical without Contras IMPRESSION: No acute fractures. Degenerative changes of the spine especially at C5-C6. Electronically Signed: Reyes Lea, at 6:40 EST Tel , Service support ,
--- NOTE | 2017-07-19 05:19 | CT_ITS ---
STUDY: CT BRAIN WITHOUT CONTRAST REASON FOR EXAM: Male, 77 years old. Patient fell RADIATION DOSAGE (If Supplied By Facility): CTDIvol = ( 44.99 ) mGy, DLP = ( 796.11 ) mGycm TECHNIQUE: Transaxial CT imaging of the brain was performed without administration of intravenous contrast material. Individualized dose optimization techniques were used for this CT. COMPARISON: None. FINDINGS: There is a small 2.7 cm scalp hematoma in the right frontal region. There are no calvarial fractures and no intra or extra-axial hemorrhage or tumor mass. There is no acute infarction. The ventricles, basal cisterns and cortical sulci are within normal limits for the patient's age. The orbits and paranasal sinuses are normal. CT/Brain/Head without Contrast IMPRESSION: A small 2.7 cm scalp hematoma in the right frontal region. No acute findings in the brain Electronically Signed: Reyes Lea, at 6:37 EST Tel , Service support ,
--- OUTSIDE RECORDS SUMMARY | 2017-07-19 05:55 | XMS RPT_ITS ---
:1940 Demographics Phone Unavailable Preferred Language eng-US Marital Status Unknown Faith Affiliation Unknown Race Unknown Ethnic Group Unknown Author Organization OHIP Care Team Providers Name Role Phone Rafat Brand Attending Unavailable PROBLEMS PROBLEMS No Problem Records FoundPROCEDURES PROCEDURES No Procedure Records FoundRESULTS RESULTS No Result Records FoundALLERGIES ALLERGIES DATE TYPE / CODE NAME / CODE REACTION SEVERITY SOURCE 07/19/2017 Drug No Known Unknown [facility] Allergy/4160 Allergies/F00 Hospital 30992(SNOMED [id number](RXNOR Repository CT) M) ENCOUNTERS ENCOUNTERS ADMIT/DISCHARGE ACCOUNT ADMITTING ENCOUNTER LOCATION SOURCE NUMBER CLASS 07/19/2017 [id number] Ambulatory [facility] ing:ED Repository PAYERS PAYERS ENCOUNTER GUARANTOR PAYER SUBSCRIBER SOURCE 07/19/2017 Primary NOT GIVENUNK [facility] Insurance:SELF PAY [facility] Number: Effective Repository Date:2017-07-19
[2017-07-19 06:34] LABS: Anion Gap 7 (5-15); BUN 18 mg/dL (7-18); BUN/Creat Ratio 12.3 RATIO (10-20); Calcium,Total 9.1 mg/dL (8.5-10.1); Chloride 105 mmol/L (98-107); Creatinine, Serum 1.46 mg/dL (0.70-1.30); EST Glomerular Filtration Rate 50 mL/min (>60); Est Glom Filt Rate - Afr Amer 61 mL/min (>60); Estimated Creatinine Clearance 36.61 ml/min; Glucose 240 mg/dL (74-106); Potassium 4.7 mmol/L (3.5-5.1); Sodium Level 139 mmol/L (136-145)
[2017-07-19 06:35] LABS: Absolute Neutrophil Count 3.9 X10^3/uL (2.0-7.7); Basophil# 0.05 X10^3/uL; Basophil% 0.8 % (0-1); Eosinophil# 0.14 X10^3/uL; Eosinophils% 2.2 % (0-5); Hematocrit 32.8 % (40-54); Hemoglobin 10.1 g/dl (13.0-16.5); Lymphocyte % 17.5 % (19-41); Mean Corp Hgb Conc 30.8 g/gl (32-36); Mean Corpuscular Hgb 32.7 pg (27.0-32.0); Mean Corpuscular Volume 106.1 fL (80-94); Mean Platelet Vol. 10.5 fl (6.2-12.0); Monocyte# 0.93 X10^3/uL; Monocyte% 14.8 % (0-10); Neutrophil # 3.89 X10^3/uL (2.7-7.7); Platelet Count 219 K/mm3 (150-450); RBC Distribution Width SD 72.2 fl (35.1-43.9); Red Blood Count 3.09 M/mm3 (4.6-6.2); White Blood Count 6.3 K/mm3 (4.4-11.0)
[2017-07-19 06:36] LABS: Differential Indicated SCAN CRITERIA MET; POSITIVE COUNT YES; POSITIVE DIFFERENTIAL NO; POSITIVE MORPHOLOGY YES
[2017-07-19 07:16] LABS: International Normalized Ratio 3.2; Prothrombin Time (Protime)PT. 31.8 SECONDS (11.7-14.9)
--- NOTE | 2017-07-19 07:37 | ED.DCSUM_ITS ---
- ER Visit Summary Date of Service: 07/19/17 Chief Complaint: Fall History of Present Illness: The patient is a 77 M who was sent from the TCU. He had a recent valve replacement. He has been unsteady and has been told not to get out of bed by himself. However he was cold and got up to try to find his sweatshirt when he fell and struck his head on the floor. He denies loss of consciousness or amnesia. He complains of a mild headache. He denies any nausea vomiting. He denies any chest pain shortness of breath back pain or injury to extremities. He was sent for a head CT as his INR reportedly was recently supratherapeutic. Physical Examination: Afebrile vitals are stable Heart regular rate and rhythm Lungs are clear Abdomen soft Active full range of motion ?4 extremities Alert and oriented with a GCS of 15 no focal or lateralizing neurological deficits Test Results: Laboratory studies notable for INR 3.[address] of the head shows a scalp hematoma but no intracranial process. CT of the cervical spine shows no fracture. Emergency Department Course and Treatment: No evidence of intracranial hemorrhage or fracture or serious traumatic injuries. The patient can be discharged back to the TCU. Treatment Plan: [] Disposition: Charge Impression: Closed head injury Scalp hematoma This note was generated with [employer] dictation software. It may contain incorrect words, spelling, and punctuation that were not noted in review of the chart prior to signing ED Disposition - Plan for ED Patient: Chief Complaint: Fall Referrals: Dusty Almanza MD [Primary Care Provider] -
--- NOTE | 2017-07-19 07:37 | ED.DEP ---
ED Disposition - Plan for ED Patient: Chief Complaint: Fall Instructions: ED Fall Uncertain Cause, ED Head Injury Closed Referrals: Dusty Almanza MD [Primary Care Provider] -
[2017-07-19 07:56] VITALS: BP 142/77; PULSE 69; RESP 15; O2SAT 96
[2017-07-19 10:32] LABS: Pathologist Review Reviewed
== END 2017-07-19 08:18 | disposition skilled nursing facility (03) ==
PROVIDERS: Emergency Provider Emergency Medicine; Family Provider Family Medicine; PCP Family Medicine
DX: S00.03XA Contusion of scalp, initial encounter (principal); R26.81 Unsteadiness on feet; R40.2410 Glasgow coma scale score 13-15, unspecified time; W19.XXXA Unspecified fall, initial encounter; Y93.9 Activity, unspecified; Y92.9 Unspecified place or not applicable; I50.9 Heart failure, unspecified; E11.9 Type 2 diabetes mellitus without complications; I10 Essential (primary) hypertension; Z86.39 Personal history of other endocrine, nutritional and metabolic disease; Z90.49 Acquired absence of other specified parts of digestive tract; Z95.2 Presence of prosthetic heart valve; Z79.82 Long term (current) use of aspirin; Z79.4 Long term (current) use of insulin; Z79.01 Long term (current) use of anticoagulants; Z79.899 Other long term (current) drug therapy
CPT/HCPCS: 70450; 72125; 80048; 85025; 85610; 99282

== ENCOUNTER 2017-07-23 06:53 | Inpatient (IN) | payer MEDICARE, SELFPAY ==
[2017-07-23] VITALS (37 sets, daily range): BP systolic 79–133; BP diastolic 55–94; PULSE 67–120; RESP 12–36; TEMP 36.4–38.2; O2SAT 90–100; BMI 27.1; BMI 29.5
--- NOTE | 2017-07-23 07:02 | EKG12_ITS ---
Test Reason : ALT MENTAL STATUS Blood Pressure : / mmHG Vent. Rate : 089 BPM Atrial Rate : 089 BPM P-R Int : 300 ms QRS Dur : 110 ms QT Int : 374 ms P-R-T Axes : 254 -37 083 degrees QTc Int : 455 ms Unusual P axis, possible ectopic atrial rhythm Left axis deviation Abnormal ECG Confirmed by HALI PHILLIPS ([id number]), photograph editor CHEPE MEADE ([id number]) on 07/26/2017 1:19:29 PM Referred By: MARVIN Confirmed By:HALI PHILLIPS
--- NOTE | 2017-07-23 07:02 | CT_ITS ---
STUDY: CT BRAIN WITHOUT CONTRAST REASON FOR EXAM: Male, 77 years old. Altered mental status. Recent pneumonia. RADIATION DOSAGE (If Supplied By Facility): CTDIvol = ( 44.99 ) mGy, DLP = ( 779.24 ) mGycm TECHNIQUE: Transaxial CT imaging of the brain was performed without administration of intravenous contrast material. Individualized dose optimization techniques were used for this CT. COMPARISON: None. FINDINGS: Normal soft tissue structures. Normal calvarium. There is mild cerebral atrophy with widening of the extra-axial spaces and ventricular dilatation. Normal white matter tracts of the cerebral hemispheres. Normal basal ganglia and thalami. Normal brainstem. Normal cerebellum. There is no intracranial hemorrhage. There are no findings of an acute ischemic infarction. Atherosclerotic calcification of the vertebral arteries and cavernous portions of the internal carotid arteries bilaterally. Normal visualized paranasal sinuses. CT/Brain/Head without Contrast IMPRESSION: Chronic involutional changes of the brain. Electronically Signed: Davie Scott MD at 8:11 EST Tel [phone], Service support ,
--- NOTE | 2017-07-23 07:02 | RAD_ITS ---
STUDY: X-RAY CHEST REASON FOR EXAM: Male, 77 years old. Altered mental status. History of pneumonia. TECHNIQUE: Single AP portable view of the chest. COMPARISON: Comparison is made with prior study dated July 22, 2017. FINDINGS: EKG electrodes are seen. Since prior study, there has been progressive bilateral airspace disease with small bilateral pleural effusions. This may represent either progressive bilateral infiltrates or CHF. Clinical correlation recommended. Sternal cerclage wires and vascular clips are present from a prior sternotomy and coronary artery bypass graft procedure (CABG). There is evidence of a mitral valve click. Moderate cardiomegaly. Pacemaker device is seen overlying the lower thorax. Normal mediastinum and chris. Normal visualized pulmonary arteries. Normal visualized aortic arch and descending thoracic aorta. There are diffuse degenerative changes of the visualized thoracic spine. Levoscoliosis. Healed bone infarct or chondral calcification in the proximal portion of the left humerus. There is no demonstrated abnormality of the visualized soft tissue structures of the upper abdomen. RAD/Chest 1 View (Portable) IMPRESSION: Progressive bilateral airspace disease suggestive of progressive infiltration versus CHF. Small bilateral pleural effusions. Follow-up recommended. Electronically Signed: Davie Scott MD at 8:14 EST Tel [phone], Service support ,
[2017-07-23] MEDS: 0.9% Normal Saline 1,000 ML 1000 ML IV (07:06)
[2017-07-23 07:11] LABS: Bedside Glucose 243 mg/dL (70-110)
[2017-07-23 07:21] LABS: Squamous Epithelial Cells - UA 0 SEEN /hpf (0-5)
[2017-07-23 07:25] LABS: Base Excess 4 mmol/L (-2 to +2); Bicarbonate 31.7 mmol/L (22-26); Blood Gas Specimen Type ART; O2 Delivery Device Nasal Can; PO2 68 mmHG (75-100); SITE R Radial; SO2 88 % (95-99); Time Given 720; Total Carbon Dioxide 34 mmol/L; pCO2 78.8 mmHg (35-45); pH 7.21 (7.35-7.45)
[2017-07-23 07:26] LABS: Absolute Lymphocyte Count 0.55 X10^3/ul (0.83-4.51); Absolute Neutrophil Count 2.8 X10^3/uL (2.0-7.7); Basophil# 0.01 X10^3/uL; Basophil% 0.3 % (0-1); Eosinophil# 0.02 X10^3/uL; Eosinophils% 0.5 % (0-5); Hematocrit 32.1 % (40-54); Hemoglobin 9.8 g/dl (13.0-16.5); Lymphocyte # 0.55 X10^3/ul (4.0); Lymphocyte % 13.8 % (19-41); Mean Corp Hgb Conc 30.5 g/gl (32-36); Mean Corpuscular Hgb 33.1 pg (27.0-32.0); Mean Corpuscular Volume 108.4 fL (80-94); Mean Platelet Vol. 10.2 fl (6.2-12.0); Monocyte# 0.52 X10^3/uL; Monocyte% 13.1 % (0-10); Neutrophil # 2.82 X10^3/uL (2.7-7.7); Neutrophil % 70.8 % (47-70); Platelet Count 201 K/mm3 (150-450); RBC Distribution Width SD 68.2 fl (35.1-43.9); Red Blood Count 2.96 M/mm3 (4.6-6.2)
[2017-07-23 07:27] LABS: Differential Indicated SCAN CRITERIA MET; POSITIVE COUNT NO; POSITIVE DIFFERENTIAL YES; POSITIVE MORPHOLOGY YES
[2017-07-23 07:31] LABS: Color, Urine Yellow (Yellow); Glucose, Dipstick Normal (Normal); Ketone-Dipstick Negative (Negative); Nitrite-Dipstick Negative (Negative); Occult Blood-Urine 10 /ul (Negative); Protein-Dipstick 30 mg/dl (Negative); Specific Gravity, Urine 1.025 (1.002-1.030); Urine Bilirubin Dipstick Negative (Negative); Urine Clarity Clear (Clear); Urine Urobilinogen Normal (Normal)
[2017-07-23 07:33] LABS: Anion Gap 4 (5-15); BUN 16 mg/dL (7-18); BUN/Creat Ratio 12.4 RATIO (10-20); Calcium,Total 8.6 mg/dL (8.5-10.1); Chloride 104 mmol/L (98-107); Creatinine, Serum 1.29 mg/dL (0.70-1.30); EST Glomerular Filtration Rate 58 mL/min (>60); Est Glom Filt Rate - Afr Amer 70 mL/min (>60); Estimated Creatinine Clearance 47.87 ml/min; Glucose 209 mg/dL (74-106); Potassium 4.8 mmol/L (3.5-5.1); Sodium Level 139 mmol/L (136-145)
[2017-07-23 07:40] LABS: Lactic Acid 0.6 mmol/L (0.4-2.0)
--- NOTE | 2017-07-23 07:40 | ED.VISSUMM ---
- ER Visit Summary Date of Service: 07/23/17 Chief Complaint: Mental status change History of Present Illness: The patient is a 77 M presenting from TCU for mental status change. Patient was found to be lethargic and confused this morning. Per nursing last night he was alert and oriented ?3. He was recently diagnosed with pneumonia and started on Omnicef. He has been in TCU since 07/18/2017 for rehab status post aortic valve replacement, mitral valve repair, left atrial appendage clip. This was performed at [facility]. Physical Examination: Blood pressure 128/82, temperature 97.6, heart rate 103, respiratory rate 36, pulse ox 92% on nasal cannula. HEENT exam is unremarkable. Neck is supple. Lungs are clear and equal bilaterally. Midline surgical incision well healing Heart is regular tachycardic. Abdomen is soft nontender nondistended. Extremities are unremarkable. Skin is warm and dry. No focal neurologic deficit. Follows commands. Arousable to voice. Remainder of exam is unremarkable. Emergency Department Course and Treatment: EKG is sinus rate of 89 with no acute ischemic changes. ABG shows a PCO2 of 78.8. He was started on noninvasive ventilation. CBC showed a white count of 4.0, hemoglobin 9.8, glucose 209. Troponin 0.24. Blood and urine cultures were sent. Chest x-ray shows progressive bilateral infiltrates. He was given Lasix, Zosyn, vancomycin. Patient is now more awake and alert. Repeat ABG was obtained and shows PCO2 of 64.3. Patient is requesting to not be transferred back to [facility]. Discussed with Dr. Mckeon and Dr Lozoya. Disposition: Admission Impression: Hypercapnic respiratory failure This note was generated with [employer] dictation software. It may contain incorrect words, spelling, and punctuation that were not noted in review of the chart prior to signing ED Disposition - Plan for ED Patient: Disposition: Acute Care Hospital [facility] Chief Complaint: Mental Status Change
--- NOTE | 2017-07-23 07:44 | ED.DCSUM_ITS ---
- ER Visit Summary Date of Service: 07/23/17 Chief Complaint: Mental status change History of Present Illness: The patient is a 77 M presenting from TCU for mental status change. Patient was found to be lethargic and confused this morning. Per nursing last night he was alert and oriented ?3. He was recently diagnosed with pneumonia and started on Omnicef. He has been in TCU since 2017 for rehab status post aortic valve replacement, mitral valve repair, left atrial appendage clip. This was performed at [facility]. Physical Examination: Blood pressure 128/82, temperature 97.6, heart rate 103, respiratory rate 36, pulse ox 92% on nasal cannula. HEENT exam is unremarkable. Neck is supple. Lungs are clear and equal bilaterally. Midline surgical incision well healing Heart is regular tachycardic. Abdomen is soft nontender nondistended. Extremities are unremarkable. Skin is warm and dry. No focal neurologic deficit. Follows commands. Arousable to voice. Remainder of exam is unremarkable. Emergency Department Course and Treatment: EKG is sinus rate of 89 with no acute ischemic changes. ABG shows a PCO2 of 78.8. He was started on noninvasive ventilation. CBC showed a white count of 4.0, hemoglobin 9.8, glucose 209. Troponin 0.24. Blood and urine cultures were sent. Chest x-ray shows progressive bilateral infiltrates. He was given Lasix, Zosyn, vancomycin. Patient is now more awake and alert. Repeat ABG was obtained and shows PCO2 of 64.3. Patient is requesting to not be transferred back to [facility]. Discussed with Dr. Mckeon and Dr Lozoya. Disposition: Admission Impression: Hypercapnic respiratory failure This note was generated with [employer] dictation software. It may contain incorrect words, spelling, and punctuation that were not noted in review of the chart prior to signing ED Disposition - Plan for ED Patient: Disposition: Acute Care Hospital [facility] Chief Complaint: Mental Status Change
[2017-07-23 07:50] LABS: Bacteria 1+ /hpf (None Seen)
[2017-07-23 07:51] LABS: Anisocytosis 1+; Basophilic Stippling RARE
[2017-07-23 07:51] LABS: International Normalized Ratio 2.7; Prothrombin Time (Protime)PT. 27.4 SECONDS (11.7-14.9)
[2017-07-23 07:51] LABS: Fine Granular Cast- Urine 0-5 SEEN /lpf (0-5); Hyaline Cast 0-5 SEEN /lpf (0-5); Mucous, Urine RARE /hpf (<or=2+)
[2017-07-23 07:52] LABS: Leukocyte Esterase-Dipstick NEGATIVE /ul (Negative); Red Blood Cells-Urine 0-5 SEEN /hpf (0-5); White Blood Cells 0-5 SEEN /hpf (0-5)
[2017-07-23 08:41] LABS: Allen Test POS; Base Excess 1 mmol/L (-2 to +2); Bicarbonate 28.4 mmol/L (22-26); Blood Gas Specimen Type ART; EPAP 6; FI02 30; IPAP 14; PO2 98 mmHG (75-100); RR 12; SITE R Radial; SO2 96 % (95-99); Time Given 825; Total Carbon Dioxide 30 mmol/L; pCO2 64.3 mmHg (35-45); pH 7.25 (7.35-7.45)
[2017-07-23] MEDS: Furosemide 40 MG/4 ML Vial IV ×2 (08:54→17:58)
[2017-07-23] MEDS: Piperacil/Tazobactam 3.375 GM/50 ML ML IV ×3 (08:54→22:25)
[2017-07-23 08:56] LABS: BNP,B-Type NATRIURETIC PEPTIDE 747.4 pg/mL (0-100)
--- NOTE | 2017-07-23 10:13 | ED.RN ---
Report received, care of patient assumed at this time.
[2017-07-23 11:06] LABS: Blood Gas Specimen Type VEN; O2 Delivery Device Nasal Can; SITE R Brachial; Time Given 1055; VBG BASE EXCESS 4 mmol/L (-1.0-3.5); VBG Bicarbonate 31 mmol/L (22-26); VBG Oxygen Content 33 mmol/L (23-33); VBG PO2 16 mmHg (25-40); VBG SO2 16 % (50-70); VBG pCO2 69.4 mmHg (41-51); VBG pH 7.26 (7.32-7.42)
[2017-07-23] MEDS: Ipratropium/Albuterol Sulfate 3 ML AMPUL.NEB INHALATION ×4 (11:14→22:40)
--- NOTE | 2017-07-23 11:32 | ECHOD_ITS ---
Reason For Study: AVR, MV Repair Procedure This was a 2D Doppler, Color Flow transthoracic echocardiogram. Exam performed portable in ICU/CCU. Left Ventricle Moderately dilated left ventricle. The estimated ejection fraction is 15-20 %. There is moderate to severe global hypokinesis of the left ventricle. Right Ventricle Normal size and thickness. Normal systolic function. Atria Normal left atrium. Normal right atrium. Normal atrial septum. Mitral Valve Peak transmitral valve gradient 6 mmHg. Mean transmitral valve gradient 3 mmHg. Mild mitral valve stenosis. An annuloplasty ring is noted in the mitral position. Tricuspid Valve Normal tricuspid valve. Mild (1+) tricuspid valve insufficiency. Right ventricular systolic pressure estimated to be 30 mmHg. Aortic Valve Peak aortic valve gradient 14 mmHg. Mean aortic valve gradient 7 mmHg. Bioprosthetic aortic valve. Pulmonic Valve The pulmonic valve is not well visualized. Great Vessels Normal aortic root. Normal arch. The inferior vena cava is dilated. No collapse of the inferior vena cava. Pericardium/Pleural No pericardial effusion. Moderate size left pleural effusion. MMode/2D Measurements & Calculations LVIDd: 5.3 cm IVSd: 1.5 cm LVOT diam: 2.0 cm LVIDs: 3.7 cm LVPWd: 1.4 cm LVOT area: 3.1 cm2 RVDd: 3.0 cm FS: 30.7 % Ao root diam: 3.5 cm LAV(MOD-bp): 45.9 ml LA A4 area: 15.8 cm2 LA dimension: 3.7 cm LAV(MOD-bp) Indexed: 25.1 ml/m2 LAV(MOD-sp2): 48.6 ml LAV(MOD-sp4): 41.8 ml RA A4 area: 18.5 cm2 Doppler Measurements & Calculations MV E max kelsie: 89.9 cm/sec MV V2 max: 118.4 cm/sec MV P1/2t max kelsie: 116.8 cm/sec MV max P.6 mmHg MV P1/2t: 45.1 msec MV V2 mean: 73.8 cm/sec MV dec slope: 758.8 cm/sec2 MV mean P.6 mmHg MVA(P1/2t): 4.9 cm2 MV V2 VTI: 18.1 cm MVA(VTI): 2.4 cm2 Ao V2 max: 183.0 cm/sec LV V1 max: 104.3 cm/sec SV(LVOT): 43.4 ml Ao max P.7 mmHg LV V1 max P.4 mmHg Ao V2 mean: 123.3 cm/sec LV V1 mean P.0 mmHg Ao mean P.1 mmHg LV V1 mean: 66.1 cm/sec Ao V2 VTI: 26.1 cm LV V1 VTI: 14.1 cm TEAGAN(I,D): 1.7 cm2 TEAGAN(V,D): 1.8 cm2 PA V2 max: 90.3 cm/sec TR max kelsie: 190.9 cm/sec TR max P.6 mmHg Interpretation Summary Moderately dilated left ventricle. The estimated ejection fraction is 15-20 %. There is moderate to severe global hypokinesis of the left ventricle. Mild mitral valve stenosis. An annuloplasty ring is noted in the mitral position. Mild (1+) tricuspid valve insufficiency. Right ventricular systolic pressure estimated to be 30 mmHg. Bioprosthetic aortic valve. The inferior vena cava is dilated Moderate size left pleural effusion. Pt appears to be in atrial fibrillation. Compared to echo report dated 05/03/2017, Mitral ring and nl appearing bioprosthetic AVR is now in place with nromal gradients. LV Function has deteriorated from 40% to 15%. Left pleural effusion is now noted. Ordering Physician: Xavier Mckeon Referring Physician: Berny Almanza MD Performed By: Ysabel Sullivan RDCS
--- NOTE | 2017-07-23 11:37 | PCM.CON.CC ---
Problem List (1) Critical aortic valve stenosis Status: Resolved Comment: Reported replacement at [facility] June 2017 (2) Mitral valve insufficiency Status: Chronic Qualifiers: Cardiac valve disease etiology: nonrheumatic Qualified Code(s): I34.0 - Nonrheumatic mitral (valve) insufficiency Comment: Repair [facility] 06/2017 (3) Acute on chronic combined systolic (congestive) and diastolic (congestive) heart failure Status: Acute (4) Diabetes mellitus Status: Chronic Qualifiers: Diabetes mellitus type: type 2 Diabetes mellitus complication status: with kidney complications Diabetes mellitus complication detail: with chronic kidney disease Diabetes mellitus mount loader insulin use: with custodial use Chronic kidney disease stage: stage 2 (mild) Qualified Code(s): E11.22 - Type 2 diabetes mellitus with diabetic chronic kidney disease; N18.2 - Chronic kidney disease, stage 2 (mild); Z79.4 - franchise consultant (current) use of insulin (5) Chronic kidney disease Status: Chronic Qualifiers: Chronic kidney disease stage: stage 2 (mild) Qualified Code(s): N18.2 - Chronic kidney disease, stage 2 (mild) (6) CKD stage 3 due to type 2 diabetes mellitus Status: Chronic (7) Type 2 diabetes mellitus with hyperglycemia Status: Chronic Qualifiers: Diabetes mellitus mount loader insulin use: with custodial use Qualified Code(s): E11.65 - Type 2 diabetes mellitus with hyperglycemia; Z79.4 - franchise consultant (current) use of insulin (8) Acute on chronic combined systolic and diastolic heart failure Status: Acute (9) Nonrheumatic aortic valve stenosis with insufficiency Status: Chronic (10) Troponin level elevated Status: Acute (11) Allergic rhinitis Status: Chronic Reason for Consult Date of Consultation: 07/23/17 Reason for Consultation: Respiratory failure History of Present Illness: The patient is a 77 year old M, with past medical history listed below, who presented to [facility] [place] 07/23/2017 secondary to change in mental status. Patient had been admitted last weeks of the TCU for rehab status post reported bioprosthetic aortic valve replacement, mitral valve repair and left atrial appendage clip performed at the [facility]. Patient had reportedly been of his usual health, but developed change in mental status this morning. Patient's is at the bedside and provided most of the history. Patient did have family visitors yesterday and they reported that he was tired after the visit but answering appropriately. Patient's is not very clear on the exact events at [facility] in no documentation from [facility] were available for review. Patient was recently diagnosed with pneumonia and placed on Omnicef while in the TCU. On arrival to the emergency room, patient was found to be lethargic. Patient was normotensive at that time and was requiring nasal cannula oxygen to maintain a saturation of 92%. Per patient's , patient has not required supplemental oxygen previously. An ABG was obtained showing a respiratory acidosis with increased AA gradient. Chest x-ray showed progressive bilateral infiltrates. In the emergency room, patient was given IV Lasix, Zosyn and vancomycin. Patient was also placed on BiPAP therapy. Repeat ABG showed improvement in PCO2 and patient was reportedly more interactive. On my evaluation in the intensive care unit, patient was not very interactive. Patient was not opening his eyes. Patient did have a LifeVest in place. Patient reportedly has not had any fevers. Patient's reports he has had a little bit of a cough that was nonproductive. Patient does not have a history of obstructive sleep apnea, smoking or other lung pathology. Did discuss CODE STATUS. Patient will be a full code. Review of systems from the patient was unable to be obtained. Past Medical History Past Medical History (Chronic Problems): Chronic Problems (Last Reviewed 05/17/17 @ 15:28 by Trice Bowling) Mitral valve insufficiency (Chronic) Repair [facility] 06/2017 Diabetes mellitus (Chronic) Chronic kidney disease (Chronic) 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) Type 2 diabetes mellitus with hyperglycemia (Chronic) Cardiomyopathy in disease classified elsewhere (Chronic) 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) Hypertension (Chronic) Dyspnea on exertion (Chronic) Allergic rhinitis (Chronic) Allergies No Known Allergies Allergy (Verified 07/23/17 06:54) Home Medications: Ambulatory Orders Medication Instructions Recorded Multivitamins,Therapeutic 1 tab PO DAILY 07/02/14 [Multivitamin] Acetaminophen 650 mg PO Q6H PRN 07/18/17 Albuterol Inhaler [Ventolin Hfa] 2 puff INHALATION Q4H PRN PRN 07/18/17 Aspirin [Aspirin, Baby] 81 mg PO DAILY@0800 07/18/17 Amiodarone HCl 400 mg PO DAILY 07/23/17 Azithromycin 250 mg PO DAILY 07/23/17 Cefdinir 300 mg PO BID 07/23/17 Insulin Detemir [Levemir (BKC)] 5 units SC BID 07/23/17 Iron Polysaccharide Complex 150 mg PO DAILYCM 07/23/17 [Ferrex 150] Melatonin 3 mg PO DAILY 07/23/17 Metoprolol Succinate [Toprol Xl] 12.5 mg PO BID 07/23/17 Polyethylene Glycol 3350 [Miralax] 17 gm PO DAILY 07/23/17 Senna [Senokot] 1 tablet PO BID 07/23/17 Spironolactone [Aldactone] 12.5 mg PO DAILY 07/23/17 Trazodone HCl [Desyrel] 50 mg PO QHS 07/23/17 Warfarin [Coumadin (PBKC)] 1 mg PO DAILY 07/23/17 Surgical History: adenoidectomy, cholecystectomy, tonsillectomy, - - Aortic valve replacement, mitral valve repair, left atrial appendage clip. Psychiatric History: No pertinent psych hx Smoking Status: Former smoker - *Family History Maternal History Items: Hypertension Paternal History Items: Hypertension Review of Systems Unable to obtain accurate/complete ROS d/t: See HPI Objective: Chest x-ray was personally reviewed. Patient does have a LifeVest in place. Infiltrates increased bilaterally in the interval with a development of a right-sided pleural effusion. - Physical Exam General: No apparent distress, Disoriented, Lethargic, - - Good BiPAP synchrony. During questions at this time HEENT: Atraumatic, PERRLA, EOMI, Normocephalic, - - No icterus or injection noted. Oral: Moist Mucosa, No Gingival or Mucosal Lesions/ Ulcerations Neck: Supple, No JVD, No Nodes, Trachea Midline Lungs: No rhonchi, No wheeze, No rales, Diminished, - - Symmetric expansion. Slight dullness to percussion at the right base. Cardiovascular: Normal S1, Normal S2, No murmurs, Irregular Rate, No rub noted, No Gallop Abdomen: Bowel Sounds Present, Soft, Non Tender, Non-Distended Extremities: No clubbing, No cyanosis, Edema - Lower extremity Skin: No rashes, No breakdown Musculoskeletal: No Tenderness to Palpation of Joints or Extremities Lymphatic: No Cervical, Supraclavicular, or Inguinal Adenopathy Neurological: - - Positive gag and cough reflexes. Localizes to stimulus. Not actively following commands. Psych/Mental Status: Flat Affect Vital Signs Temp Pulse Resp BP Pulse Ox 36.4 C L 112 H 14 115/66 98 07/23/17 06:54 07/23/17 11:14 07/23/17 11:14 07/23/17 10:10 07/23/17 11:14 Oxygen Flow Rate 30 Oxygen Delivery Method Bi-pap Weight: 77.9 kg Body Mass Index (BMI) 29.5 Laboratory Tests 07/23/17 07/23/17 07/23/17 07:00 07:05 07:05 WBC RBC Hgb Hct MCV MCH MCHC RDW RDW Differential Plt Count MPV Immature Gran % (Auto) Neut % (Auto) Lymph % (Auto) Carter % (Auto) Eos % (Auto) Baso % (Auto) Absolute Neuts (auto) Absolute Lymphs (auto) Total Counted Basophilic Stippling Anisocytosis PT 27.4 H INR 2.7 Specimen Type Sample Site pH Bicarbonate Actual POC Total CO2 Base Excess O2 Saturation O2 % ABG pCO2 ABG pO2 Jefe Test VBG pH VBG pO2 VBG O2 Sat (Calc) VBG O2 Content VBG Base Excess POC Mix VBG pCO2 Pt Tmp Respiration Rate O2 Delivery Device Liter Flow EPAP IPAP Blood Gas Notified Whom Blood Gas Notified Time Sodium 139 Potassium 4.8 Chloride 104 Carbon Dioxide 31.0 Anion Gap 4 L BUN 16 Creatinine 1.29 Estim Creat Clear Calc 47.87 Est GFR (MDRD) Af Amer 70 Est GFR (MDRD) Non-Af 58 L BUN/Creatinine Ratio 12.4 Glucose 209 H Lactic Acid Calcium 8.6 Troponin I 0.24 H B-Natriuretic Peptide Urine Color Urine Clarity Urine pH Ur Specific Orange Urine Protein Urine Glucose (UA) Urine Ketones Urine Occult Blood Urine Nitrite Urine Bilirubin Urine Urobilinogen Ur Leukocyte Esterase Urine RBC Urine WBC Ur Squamous Epith Cells Urine Bacteria Hyaline Casts Fine Granular Casts Urine Mucus POC Glucose 243 H 07/23/17 07/23/17 07/23/17 07:08 07:08 07:08 WBC 4.0 L RBC 2.96 L Hgb 9.8 L Hct 32.1 L MCV 108.4 H MCH 33.1 H MCHC 30.5 L RDW 18.0 H RDW Differential 68.2 H Plt Count 201 MPV 10.2 Immature Gran % (Auto) 1.500 H Neut % (Auto) 70.8 H Lymph % (Auto) 13.8 L Carter % (Auto) 13.1 H Eos % (Auto) 0.5 Baso % (Auto) 0.3 Absolute Neuts (auto) 2.8 Absolute Lymphs (auto) 0.55 L Total Counted Not Reportable Basophilic Stippling RARE Anisocytosis 1+ PT INR Specimen Type Sample Site pH Bicarbonate Actual POC Total CO2 Base Excess O2 Saturation O2 % ABG pCO2 ABG pO2 Jefe Test VBG pH VBG pO2 VBG O2 Sat (Calc) VBG O2 Content VBG Base Excess POC Mix VBG pCO2 Pt Tmp Respiration Rate O2 Delivery Device Liter Flow EPAP IPAP Blood Gas Notified Whom Blood Gas Notified Time Sodium Potassium Chloride Carbon Dioxide Anion Gap BUN Creatinine Estim Creat Clear Calc Est GFR (MDRD) Af Amer Est GFR (MDRD) Non-Af BUN/Creatinine Ratio Glucose Lactic Acid 0.6 Calcium Troponin I B-Natriuretic Peptide 747.4 H Urine Color Urine Clarity Urine pH Ur Specific Orange Urine Protein Urine Glucose (UA) Urine Ketones Urine Occult Blood Urine Nitrite Urine Bilirubin Urine Urobilinogen Ur Leukocyte Esterase Urine RBC Urine WBC Ur Squamous Epith Cells Urine Bacteria Hyaline Casts Fine Granular Casts Urine Mucus POC Glucose 07/23/17 07/23/17 07/23/17 07:16 07:17 08:34 WBC RBC Hgb Hct MCV MCH MCHC RDW RDW Differential Plt Count MPV Immature Gran % (Auto) Neut % (Auto) Lymph % (Auto) Carter % (Auto) Eos % (Auto) Baso % (Auto) Absolute Neuts (auto) Absolute Lymphs (auto) Total Counted Basophilic Stippling Anisocytosis PT INR Specimen Type ART ART Sample Site R Radial R Radial pH 7.21 L 7.25 L Bicarbonate Actual 31.7 H 28.4 H POC Total CO2 34 30 Base Excess 4 H 1 O2 Saturation 88 L 96 O2 % 30 ABG pCO2 78.8 H* 64.3 H ABG pO2 68 L 98 Jefe Test POS VBG pH VBG pO2 VBG O2 Sat (Calc) VBG O2 Content VBG Base Excess POC Mix VBG pCO2 Pt Tmp Respiration Rate 12 O2 Delivery Device Nasal Can Bi / C PAP Liter Flow 2.0 EPAP 6 IPAP 14 Blood Gas Notified Whom ED MD ED MD Blood Gas Notified Time 720 825 Sodium Potassium Chloride Carbon Dioxide Anion Gap BUN Creatinine Estim Creat Clear Calc Est GFR (MDRD) Af Amer Est GFR (MDRD) Non-Af BUN/Creatinine Ratio Glucose Lactic Acid Calcium Troponin I B-Natriuretic Peptide Urine Color Yellow Urine Clarity Clear Urine pH 5.0 Ur Specific Orange 1.025 Urine Protein 30 H Urine Glucose (UA) Normal Urine Ketones Negative Urine Occult Blood 10 H Urine Nitrite Negative Urine Bilirubin Negative Urine Urobilinogen Normal Ur Leukocyte Esterase NEGATIVE Urine RBC 0-5 SEEN Urine WBC 0-5 SEEN Ur Squamous Epith Cells 0 SEEN Urine Bacteria 1+ Hyaline Casts 0-5 SEEN Fine Granular Casts 0-5 SEEN Urine Mucus RARE POC Glucose 07/23/17 10:58 WBC RBC Hgb Hct MCV MCH MCHC RDW RDW Differential Plt Count MPV Immature Gran % (Auto) Neut % (Auto) Lymph % (Auto) Carter % (Auto) Eos % (Auto) Baso % (Auto) Absolute Neuts (auto) Absolute Lymphs (auto) Total Counted Basophilic Stippling Anisocytosis PT INR Specimen Type WANDA Sample Site R Brachial pH Bicarbonate Actual POC Total CO2 Base Excess O2 Saturation O2 % ABG pCO2 ABG pO2 Jefe Test VBG pH 7.26 L VBG pO2 16 L* VBG O2 Sat (Calc) 16 L VBG O2 Content 33 VBG Base Excess 4 H POC Mix VBG pCO2 Pt Tmp 69.4 H Respiration Rate O2 Delivery Device Nasal Can Liter Flow 3.0 EPAP IPAP Blood Gas Notified Whom HOSP Blood Gas Notified Time 1055 Sodium Potassium Chloride Carbon Dioxide Anion Gap BUN Creatinine Estim Creat Clear Calc Est GFR (MDRD) Af Amer Est GFR (MDRD) Non-Af BUN/Creatinine Ratio Glucose Lactic Acid Calcium Troponin I B-Natriuretic Peptide Urine Color Urine Clarity Urine pH Ur Specific Orange Urine Protein Urine Glucose (UA) Urine Ketones Urine Occult Blood Urine Nitrite Urine Bilirubin Urine Urobilinogen Ur Leukocyte Esterase Urine RBC Urine WBC Ur Squamous Epith Cells Urine Bacteria Hyaline Casts Fine Granular Casts Urine Mucus POC Glucose Clinical Impression(s) from Imaging Studies Brain CT 07/23/17 07:02 IMPRESSION: Chronic involutional changes of the brain. Electronically Signed: Davie Scott MD at 8:11 EST Tel [phone], Service support , Chest X-Ray 07/23/17 07:02 IMPRESSION: Progressive bilateral airspace disease suggestive of progressive infiltration versus CHF. Small bilateral pleural effusions. Follow-up recommended. Electronically Signed: Davie Scott MD at 8:14 EST Tel [phone], Service support , Assessment/Plan RECOMMENDATIONS: 1. Continue antibiotics pending culture data 2. Okay to continue with rate control medications 3. Lasix intermittently 4. Repeat ABG if not improving 5. Obtain echocardiogram, cardiac enzymes series IMPRESSIONS: 1. Acute combined respiratory failure Exact etiology is unclear at this time. Patient does have extensive bilateral pulmonary infiltrates and an elevated BNP suggesting congestive heart failure. Baseline data is unclear at this time as no records from [facility] are available for review. Patient's is reporting a bioprosthetic aortic valve and mitral valve repair. Will order an echocardiogram for evaluation of valve integrity. Patient has received rate control medications, but will discontinue nonessential blood pressure medications given decrease in blood pressure. Patient cannot be excluded from having a healthcare associated pneumonia. Patient does have an MRSA swab pending. We will continue with Zosyn therapy given recent surgery and valve repairs. Patient has no documented fevers, but does have leukopenia. Orr cultures are pending. Repeat ABG if patient is not improving. Cannot exclude the need for intubation with mechanical ventilation. 2. Probable acute on chronic systolic congestive heart failure/atrial fibrillation CAD/recent valve repair and replacement Patient's reports no history of atrial fibrillation, but electronic medical record describes history of cardioversion. Patient is currently rate controlled at this time. Will likely obtain a consultation from cardiology for evaluation. Patient is anticoagulated at this time with Coumadin therapy. Likely recheck INR in a daily basis given concomitant antibiotics and probable prolongation. Obtain cardiac series. 3. Diabetes mellitus Patient is typically on Levemir therapy. Patient is currently n.p.o. Would cover with sliding scale insulin for now. If patient is able to come off of BiPAP, baseline long-acting insulin would be indicated. It does appear to have mild protein in the urine consistent with diabetic nephropathy 4. Chronic kidney disease stage II Good urine output thus far. We will continue to monitor. Patient would be at increased risk for contrast nephropathy. Since potassium is slightly elevated, but this is likely secondary to acidosis. Would not actively intervene at this time. 5. Insomnia/recent fall/advanced age Complicates care, management, recovery and prognosis. Patient is a full code as verified with patient's at the bedside. TIME: 85 minutes of critical care time spent addressing patient's acute combined respiratory failure, probable congestive heart failure, diabetes mellitus, CKD, review of all data and collaboration with care team.
--- NOTE | 2017-07-23 11:47 | CON.PCM_ITS ---
Problem List (1) Critical aortic valve stenosis Status: Resolved Comment: Reported replacement at [facility] June 2017 (2) Mitral valve insufficiency Status: Chronic Qualifiers: Cardiac valve disease etiology: nonrheumatic Qualified Code(s): I34.0 - Nonrheumatic mitral (valve) insufficiency Comment: Repair [facility] 06/2017 (3) Acute on chronic combined systolic (congestive) and diastolic (congestive) heart failure Status: Acute (4) Diabetes mellitus Status: Chronic Qualifiers: Diabetes mellitus type: type 2 Diabetes mellitus complication status: with kidney complications Diabetes mellitus complication detail: with chronic kidney disease Diabetes mellitus terminal clerk insulin use: with mcc use Chronic kidney disease stage: stage 2 (mild) Qualified Code(s): E11.22 - Type 2 diabetes mellitus with diabetic chronic kidney disease; N18.2 - Chronic kidney disease, stage 2 (mild); Z79.4 - long term care social worker (current) use of insulin (5) Chronic kidney disease Status: Chronic Qualifiers: Chronic kidney disease stage: stage 2 (mild) Qualified Code(s): N18.2 - Chronic kidney disease, stage 2 (mild) (6) CKD stage 3 due to type 2 diabetes mellitus Status: Chronic (7) Type 2 diabetes mellitus with hyperglycemia Status: Chronic Qualifiers: Diabetes mellitus terminal clerk insulin use: with mcc use Qualified Code( s): E11.65 - Type 2 diabetes mellitus with hyperglycemia; Z79.4 - [facility] ( current) use of insulin (8) Acute on chronic combined systolic and diastolic heart failure Status: Acute (9) Nonrheumatic aortic valve stenosis with insufficiency Status: Chronic (10) Troponin level elevated Status: Acute (11) Allergic rhinitis Status: Chronic Reason for Consult Date of Consultation: 07/23/17 Reason for Consultation: Respiratory failure History of Present Illness: The patient is a 77 year old M, with past medical history listed below, who presented to [facility] 07/23/2017 secondary to change in mental status. Patient had been admitted last weeks of the TCU for rehab status post reported bioprosthetic aortic valve replacement, mitral valve repair and left atrial appendage clip performed at the [facility]. Patient had reportedly been of his usual health, but developed change in mental status this morning. Patient's is at the bedside and provided most of the history. Patient did have family visitors yesterday and they reported that he was tired after the visit but answering appropriately. Patient's is not very clear on the exact events at [facility] in no documentation from [facility] were available for review. Patient was recently diagnosed with pneumonia and placed on Omnicef while in the TCU. On arrival to the emergency room, patient was found to be lethargic. Patient was normotensive at that time and was requiring nasal cannula oxygen to maintain a saturation of 92%. Per patient's , patient has not required supplemental oxygen previously. An ABG was obtained showing a respiratory acidosis with increased AA gradient. Chest x-ray showed progressive bilateral infiltrates. In the emergency room, patient was given IV Lasix, Zosyn and vancomycin. Patient was also placed on BiPAP therapy. Repeat ABG showed improvement in PCO2 and patient was reportedly more interactive. On my evaluation in the intensive care unit, patient was not very interactive. Patient was not opening his eyes. Patient did have a LifeVest in place. Patient reportedly has not had any fevers. Patient's reports he has had a little bit of a cough that was nonproductive. Patient does not have a history of obstructive sleep apnea, smoking or other lung pathology. Did discuss CODE STATUS. Patient will be a full code. Review of systems from the patient was unable to be obtained. Past Medical History Past Medical History (Chronic Problems): Chronic Problems (Last Reviewed 05/17/17 @ 15:28 by Trice Bowling) Mitral valve insufficiency (Chronic) Repair [facility] 06/2017 Diabetes mellitus (Chronic) Chronic kidney disease (Chronic) 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) Type 2 diabetes mellitus with hyperglycemia (Chronic) Cardiomyopathy in disease classified elsewhere (Chronic) 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) Hypertension (Chronic) Dyspnea on exertion (Chronic) Allergic rhinitis (Chronic) Allergies No Known Allergies Allergy (Verified 07/23/17 06:54) Home Medications: Ambulatory Orders Medication Instructions Recorded Multivitamins,Therapeutic 1 tab PO DAILY 07/02/14 [Multivitamin] Acetaminophen 650 mg PO Q6H PRN 07/18/17 Albuterol Inhaler [Ventolin Hfa] 2 puff INHALATION Q4H PRN PRN 07/18/17 Aspirin [Aspirin, Baby] 81 mg PO DAILY@0800 07/18/17 Amiodarone HCl 400 mg PO DAILY 07/23/17 Azithromycin 250 mg PO DAILY 07/23/17 Cefdinir 300 mg PO BID 07/23/17 Insulin Detemir [Levemir (BKC)] 5 units SC BID 07/23/17 Iron Polysaccharide Complex 150 mg PO DAILYCM 07/23/17 [Ferrex 150] Melatonin 3 mg PO DAILY 07/23/17 Metoprolol Succinate [Toprol Xl] 12.5 mg PO BID 07/23/17 Polyethylene Glycol 3350 [Miralax] 17 gm PO DAILY 07/23/17 Senna [Senokot] 1 tablet PO BID 07/23/17 Spironolactone [Aldactone] 12.5 mg PO DAILY 07/23/17 Trazodone HCl [Desyrel] 50 mg PO QHS 07/23/17 Warfarin [Coumadin (PBKC)] 1 mg PO DAILY 07/23/17 Surgical History: adenoidectomy, cholecystectomy, tonsillectomy, - - Aortic valve replacement, mitral valve repair, left atrial appendage clip. Psychiatric History: No pertinent psych hx Smoking Status: Former smoker - *Family History Maternal History Items: Hypertension Paternal History Items: Hypertension Review of Systems Unable to obtain accurate/complete ROS d/t: See HPI Objective: Chest x-ray was personally reviewed. Patient does have a LifeVest in place. Infiltrates increased bilaterally in the interval with a development of a right- sided pleural effusion. - Physical Exam General: No apparent distress, Disoriented, Lethargic, - - Good BiPAP synchrony. During questions at this time HEENT: Atraumatic, PERRLA, EOMI, Normocephalic, - - No icterus or injection noted. Oral: Moist Mucosa, No Gingival or Mucosal Lesions/ Ulcerations Neck: Supple, No JVD, No Nodes, Trachea Midline Lungs: No rhonchi, No wheeze, No rales, Diminished, - - Symmetric expansion. Slight dullness to percussion at the right base. Cardiovascular: Normal S1, Normal S2, No murmurs, Irregular Rate, No rub noted, No Gallop Abdomen: Bowel Sounds Present, Soft, Non Tender, Non-Distended Extremities: No clubbing, No cyanosis, Edema - Lower extremity Skin: No rashes, No breakdown Musculoskeletal: No Tenderness to Palpation of Joints or Extremities Lymphatic: No Cervical, Supraclavicular, or Inguinal Adenopathy Neurological: - - Positive gag and cough reflexes. Localizes to stimulus. Not actively following commands. Psych/Mental Status: Flat Affect Vital Signs Temp Pulse Resp BP Pulse Ox 36.4 C L 112 H 14 115/66 98 07/23/17 06:54 07/23/17 11:14 07/23/17 11:14 07/23/17 10:10 07/23/17 11:14 Oxygen Flow Rate 30 Oxygen Delivery Method Bi-pap Weight: 77.9 kg Body Mass Index (BMI) 29.5 Laboratory Tests 07/23/17 07/23/17 07/23/17 07:00 07:05 07:05 WBC RBC Hgb Hct MCV MCH MCHC RDW RDW Differential Plt Count MPV Immature Gran % (Auto) Neut % (Auto) Lymph % (Auto) [place] % (Auto) Eos % (Auto) Baso % (Auto) Absolute Neuts (auto) Absolute Lymphs (auto) Total Counted Basophilic Stippling Anisocytosis PT 27.4 H INR 2.7 Specimen Type Sample Site pH Bicarbonate Actual POC Total CO2 Base Excess O2 Saturation O2 % ABG pCO2 ABG pO2 Jefe Test VBG pH VBG pO2 VBG O2 Sat (Calc) VBG O2 Content VBG Base Excess POC Mix VBG pCO2 Pt Tmp Respiration Rate O2 Delivery Device Liter Flow EPAP IPAP Blood Gas Notified Whom Blood Gas Notified Time Sodium 139 Potassium 4.8 Chloride 104 Carbon Dioxide 31.0 Anion Gap 4 L BUN 16 Creatinine 1.29 Estim Creat Clear Calc 47.87 Est GFR (MDRD) Af Amer 70 Est GFR (MDRD) Non-Af 58 L BUN/Creatinine Ratio 12.4 Glucose 209 H Lactic Acid Calcium 8.6 Troponin I 0.24 H B-Natriuretic Peptide Urine Color Urine Clarity Urine pH Ur Specific [place] Urine Protein Urine Glucose (UA) Urine Ketones Urine Occult Blood Urine Nitrite Urine Bilirubin Urine Urobilinogen Ur Leukocyte Esterase Urine RBC Urine WBC Ur Squamous Epith Cells Urine Bacteria Hyaline Casts Fine Granular Casts Urine Mucus POC Glucose 243 H 07/23/17 07/23/17 07/23/17 07:08 07:08 07:08 WBC 4.0 L RBC 2.96 L Hgb 9.8 L Hct 32.1 L MCV 108.4 H MCH 33.1 H MCHC 30.5 L RDW 18.0 H RDW Differential 68.2 H Plt Count 201 MPV 10.2 Immature Gran % (Auto) 1.500 H Neut % (Auto) 70.8 H Lymph % (Auto) 13.8 L [place] % (Auto) 13.1 H Eos % (Auto) 0.5 Baso % (Auto) 0.3 Absolute Neuts (auto) 2.8 Absolute Lymphs (auto) 0.55 L Total Counted Not Reportable Basophilic Stippling RARE Anisocytosis 1+ PT INR Specimen Type Sample Site pH Bicarbonate Actual POC Total CO2 Base Excess O2 Saturation O2 % ABG pCO2 ABG pO2 Jefe Test VBG pH VBG pO2 VBG O2 Sat (Calc) VBG O2 Content VBG Base Excess POC Mix VBG pCO2 Pt Tmp Respiration Rate O2 Delivery Device Liter Flow EPAP IPAP Blood Gas Notified Whom Blood Gas Notified Time Sodium Potassium Chloride Carbon Dioxide Anion Gap BUN Creatinine Estim Creat Clear Calc Est GFR (MDRD) Af Amer Est GFR (MDRD) Non-Af BUN/Creatinine Ratio Glucose Lactic Acid 0.6 Calcium Troponin I B-Natriuretic Peptide 747.4 H Urine Color Urine Clarity Urine pH Ur Specific [place] Urine Protein Urine Glucose (UA) Urine Ketones Urine Occult Blood Urine Nitrite Urine Bilirubin Urine Urobilinogen Ur Leukocyte Esterase Urine RBC Urine WBC Ur Squamous Epith Cells Urine Bacteria Hyaline Casts Fine Granular Casts Urine Mucus POC Glucose 07/23/17 07/23/17 07/23/17 07:16 07:17 08:34 WBC RBC Hgb Hct MCV MCH MCHC RDW RDW Differential Plt Count MPV Immature Gran % (Auto) Neut % (Auto) Lymph % (Auto) [place] % (Auto) Eos % (Auto) Baso % (Auto) Absolute Neuts (auto) Absolute Lymphs (auto) Total Counted Basophilic Stippling Anisocytosis PT INR Specimen Type ART ART Sample Site R Radial R Radial pH 7.21 L 7.25 L Bicarbonate Actual 31.7 H 28.4 H POC Total CO2 34 30 Base Excess 4 H 1 O2 Saturation 88 L 96 O2 % 30 ABG pCO2 78.8 H* 64.3 H ABG pO2 68 L 98 Jefe Test POS VBG pH VBG pO2 VBG O2 Sat (Calc) VBG O2 Content VBG Base Excess POC Mix VBG pCO2 Pt Tmp Respiration Rate 12 O2 Delivery Device Nasal Can Bi / C PAP Liter Flow 2.0 EPAP 6 IPAP 14 Blood Gas Notified Whom ED MD ED MD Blood Gas Notified Time 720 825 Sodium Potassium Chloride Carbon Dioxide Anion Gap BUN Creatinine Estim Creat Clear Calc Est GFR (MDRD) Af Amer Est GFR (MDRD) Non-Af BUN/Creatinine Ratio Glucose Lactic Acid Calcium Troponin I B-Natriuretic Peptide Urine Color Yellow Urine Clarity Clear Urine pH 5.0 Ur Specific [place] 1.025 Urine Protein 30 H Urine Glucose (UA) Normal Urine Ketones Negative Urine Occult Blood 10 H Urine Nitrite Negative Urine Bilirubin Negative Urine Urobilinogen Normal Ur Leukocyte Esterase NEGATIVE Urine RBC 0-5 SEEN Urine WBC 0-5 SEEN Ur Squamous Epith Cells 0 SEEN Urine Bacteria 1+ Hyaline Casts 0-5 SEEN Fine Granular Casts 0-5 SEEN Urine Mucus RARE POC Glucose 07/23/17 10:58 WBC RBC Hgb Hct MCV MCH MCHC RDW RDW Differential Plt Count MPV Immature Gran % (Auto) Neut % (Auto) Lymph % (Auto) [place] % (Auto) Eos % (Auto) Baso % (Auto) Absolute Neuts (auto) Absolute Lymphs (auto) Total Counted Basophilic Stippling Anisocytosis PT INR Specimen Type WANDA Sample Site R Brachial pH Bicarbonate Actual POC Total CO2 Base Excess O2 Saturation O2 % ABG pCO2 ABG pO2 Jefe Test VBG pH 7.26 L VBG pO2 16 L* VBG O2 Sat (Calc) 16 L VBG O2 Content 33 VBG Base Excess 4 H POC Mix VBG pCO2 Pt Tmp 69.4 H Respiration Rate O2 Delivery Device Nasal Can Liter Flow 3.0 EPAP IPAP Blood Gas Notified Whom HOSP Blood Gas Notified Time 1055 Sodium Potassium Chloride Carbon Dioxide Anion Gap BUN Creatinine Estim Creat Clear Calc Est GFR (MDRD) Af Amer Est GFR (MDRD) Non-Af BUN/Creatinine Ratio Glucose Lactic Acid Calcium Troponin I B-Natriuretic Peptide Urine Color Urine Clarity Urine pH Ur Specific [place] Urine Protein Urine Glucose (UA) Urine Ketones Urine Occult Blood Urine Nitrite Urine Bilirubin Urine Urobilinogen Ur Leukocyte Esterase Urine RBC Urine WBC Ur Squamous Epith Cells Urine Bacteria Hyaline Casts Fine Granular Casts Urine Mucus POC Glucose Clinical Impression(s) from Imaging Studies Brain CT 07/23/17 07:02 IMPRESSION: Chronic involutional changes of the brain. Electronically Signed: Davie Scott MD at 8:11 EST Tel [phone], Service support , Chest X-Ray 07/23/17 07:02 IMPRESSION: Progressive bilateral airspace disease suggestive of progressive infiltration versus CHF. Small bilateral pleural effusions. Follow-up recommended. Electronically Signed: Davie Scott MD at 8:14 EST Tel [phone], Service support , Assessment/Plan RECOMMENDATIONS: 1. Continue antibiotics pending culture data 2. Okay to continue with rate control medications 3. Lasix intermittently 4. Repeat ABG if not improving 5. Obtain echocardiogram, cardiac enzymes series IMPRESSIONS: 1. Acute combined respiratory failure Exact etiology is unclear at this time. Patient does have extensive bilateral pulmonary infiltrates and an elevated BNP suggesting congestive heart failure. Baseline data is unclear at this time as no records from [facility] are available for review. Patient's is reporting a bioprosthetic aortic valve and mitral valve repair. Will order an echocardiogram for evaluation of valve integrity. Patient has received rate control medications, but will discontinue nonessential blood pressure medications given decrease in blood pressure. Patient cannot be excluded from having a healthcare associated pneumonia. Patient does have an MRSA swab pending. We will continue with Zosyn therapy given recent surgery and valve repairs. Patient has no documented fevers, but does have leukopenia. Orr cultures are pending. Repeat ABG if patient is not improving. Cannot exclude the need for intubation with mechanical ventilation. 2. Probable acute on chronic systolic congestive heart failure/atrial fibrillation CAD/recent valve repair and replacement Patient's reports no history of atrial fibrillation, but electronic medical record describes history of cardioversion. Patient is currently rate controlled at this time. Will likely obtain a consultation from cardiology for evaluation. Patient is anticoagulated at this time with Coumadin therapy. Likely recheck INR in a daily basis given concomitant antibiotics and probable prolongation. Obtain cardiac series. 3. Diabetes mellitus Patient is typically on Levemir therapy. Patient is currently n.p.o. Would cover with sliding scale insulin for now. If patient is able to come off of BiPAP, baseline long-acting insulin would be indicated. It does appear to have mild protein in the urine consistent with diabetic nephropathy 4. Chronic kidney disease stage II Good urine output thus far. We will continue to monitor. Patient would be at increased risk for contrast nephropathy. Since potassium is slightly elevated, but this is likely secondary to acidosis. Would not actively intervene at this time. 5. Insomnia/recent fall/advanced age Complicates care, management, recovery and prognosis. Patient is a full code as verified with patient's at the bedside. TIME: 85 minutes of critical care time spent addressing patient's acute combined respiratory failure, probable congestive heart failure, diabetes mellitus, CKD, review of all data and collaboration with care team.
[2017-07-23 12:11] LABS: Bedside Glucose 198 mg/dL (70-110)
--- NOTE | 2017-07-23 12:25 | CASEMGMT ---
ALEKSANDR spoke with Richa in TCU and patient is from there. She said they can take him back when he is ready, but he will need insurance authorization to return. ALEKSANDR to follow for d/c back to TCU pending insurance. Arianne NUNEZ MSW
--- NOTE | 2017-07-23 12:30 | PCM.HP.STD ---
Problem List (1) Acute respiratory failure with hypercapnia Status: Acute (2) Heart failure with reduced ejection fraction Status: Acute (3) H/O aortic valve replacement Status: Chronic (4) Mitral valve insufficiency Status: Chronic Qualifiers: Cardiac valve disease etiology: nonrheumatic Qualified Code(s): I34.0 - Nonrheumatic mitral (valve) insufficiency Comment: Repair [facility] 06/2017 (5) Diabetes mellitus Status: Chronic Qualifiers: Diabetes mellitus type: type 2 Diabetes mellitus complication status: with kidney complications Diabetes mellitus complication detail: with chronic kidney disease Diabetes mellitus longterm insulin use: with longterm use Chronic kidney disease stage: stage 2 (mild) Qualified Code(s): E11.22 - Type 2 diabetes mellitus with diabetic chronic kidney disease; N18.2 - Chronic kidney disease, stage 2 (mild); Z79.4 - watermelon inspector (current) use of insulin (6) Chronic kidney disease Status: Chronic Qualifiers: Chronic kidney disease stage: stage 2 (mild) Qualified Code(s): N18.2 - Chronic kidney disease, stage 2 (mild) (7) Hypertension Status: Chronic (8) Dyspnea on exertion Status: Chronic (9) Allergic rhinitis Status: Chronic (10) Metabolic encephalopathy Status: Acute History of Present Illness Date of Admission: 07/23/17 Chief Complaint: change in mental status The patient is a 77 year old M who had an aortic valve replacement at [facility] this month. Was discharged to the transitional care unit on the and I was doing well. Patient was noted to be confused today. Yesterday, patient was felt had pneumonia and was started on antibiotics. Patient was sent to the emergency room with the confusion. Patient had a blood gas consistent with a respiratory acidosis with pH 7.21 and a PCO2 of 78.8. Patient was started on BiPAP. Patient's oxygenation actually improved but patient still remains somnolence patient is maintained on the BiPAP. Patient did receive IV Lasix in the emergency room. Patient is somnolent currently and unable to provide any history. History obtained through the emergency room physician as well as patient's at bedside. 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) Hypertension (Chronic) Dyspnea on exertion (Chronic) Allergic rhinitis (Chronic) Allergies No Known Allergies Allergy (Verified 07/23/17 06:54) Home Medications: Ambulatory Orders Medication Instructions Recorded Multivitamins,Therapeutic 1 tab PO DAILY 07/02/14 [Multivitamin] Acetaminophen 650 mg PO Q6H PRN 07/18/17 Albuterol Inhaler [Ventolin Hfa] 2 puff INHALATION Q4H PRN PRN 07/18/17 Aspirin [Aspirin, Baby] 81 mg PO DAILY@0800 07/18/17 Amiodarone HCl 400 mg PO DAILY 07/23/17 Azithromycin 250 mg PO DAILY 07/23/17 Cefdinir 300 mg PO BID 07/23/17 Insulin Detemir [Levemir (BKC)] 5 units SC BID 07/23/17 Iron Polysaccharide Complex 150 mg PO DAILYCM 07/23/17 [Ferrex 150] Melatonin 3 mg PO DAILY 07/23/17 Metoprolol Succinate [Toprol Xl] 12.5 mg PO BID 07/23/17 Polyethylene Glycol 3350 [Miralax] 17 gm PO DAILY 07/23/17 Senna [Senokot] 1 tablet PO BID 07/23/17 Spironolactone [Aldactone] 12.5 mg PO DAILY 07/23/17 Trazodone HCl [Desyrel] 50 mg PO QHS 07/23/17 Warfarin [Coumadin (PBKC)] 1 mg PO DAILY 07/23/17 Surgical History: adenoidectomy, cholecystectomy, tonsillectomy, - - Aortic valve replacement, mitral valve repair, left atrial appendage clip. Psychiatric History: No pertinent psych hx Smoking Status: Former smoker - *Family History Maternal History Items: Hypertension Paternal History Items: Hypertension Review of Systems Unable to obtain accurate/complete ROS d/t: Unable to obtain as the patient is confused. VTE Information - Inpt Only VTE Present on Admission: No VTE Pharm Prophylaxis ordered?: Yes Patient Problems: Active and Suspected Problems (Last Reviewed 05/17/17 @ 15:28 by Trice Bowling) Acute respiratory failure with hypercapnia (Acute) Heart failure with reduced ejection fraction (Acute) Metabolic encephalopathy (Acute) - Physical Exam General: Well developed, Well nourished, Confused, - - On BiPAP HEENT: Atraumatic, Normocephalic Neck: No Nodes, Thyroid Normal Size and Texture Lungs: Diminished, - - Faint crackles Cardiovascular: Regular rate, Regular Rhythm, Normal S1, Normal S2 Abdomen: Bowel Sounds Present, Soft, Non Tender, Non-Distended Extremities: No edema, No Calf Tenderness Skin: No rashes, No breakdown Musculoskeletal: No Tenderness to Palpation of Joints or Extremities, No Muscle Wasting Neurological: Muscle tone normal, - - No clonus Psych/Mental Status: - - Infused and somnolent Vital Signs Temp Pulse Resp BP Pulse Ox 37.0 C 106 H 15 99/71 100 07/23/17 11:30 07/23/17 11:56 07/23/17 11:51 07/23/17 11:51 07/23/17 11:51 Oxygen Flow Rate 2 Oxygen Delivery Method Bi-pap Weight: 77.9 kg Body Mass Index (BMI) 29.5 Intake and Output for Last 24 Hours 07/21/17 07/22/17 07/23/17 23:59 23:59 23:59 Intake Total 50 / 50 Output Total 600 / 600 Balance -550 / -550 Laboratory Tests Past 24 Hrs 07/23/17 07/23/17 10:58 11:00 Specimen Type WANDA Sample Site R Brachial VBG pH 7.26 L VBG pO2 16 L* VBG O2 Sat (Calc) 16 L VBG O2 Content 33 VBG Base Excess 4 H POC Mix VBG pCO2 Pt Tmp 69.4 H O2 Delivery Device Nasal Can Liter Flow 3.0 Blood Gas Notified Whom HOSP Blood Gas Notified Time 1055 MRSA (PCR) Pending POC Glucose 07/23/17 12:05 POC Glucose 198 H Clinical Impression(s) from Imaging Studies Brain CT 07/23/17 07:02 IMPRESSION: Chronic involutional changes of the brain. Electronically Signed: Davie Scott MD at 8:11 EST Tel [phone], Service support , Chest X-Ray 07/23/17 07:02 IMPRESSION: Progressive bilateral airspace disease suggestive of progressive infiltration versus CHF. Small bilateral pleural effusions. Follow-up recommended. Electronically Signed: Davie Scott MD at 8:14 EST Tel [phone], Service support , Assessment/Plan Active and Suspected Problems (Last Reviewed 05/17/17 @ 15:28 by Trice Bowling) Acute respiratory failure with hypercapnia (Acute) Heart failure with reduced ejection fraction (Acute) Metabolic encephalopathy (Acute) 1. Acute hypercapnic respiratory failure [place] to be from my standpoint to be related with heart failure Patient being treated for a possible pneumonia as well as heart failure. Continue with BiPAP for now 2. Acute heart failure with reduced ejection fraction Ejection fraction of 45-50% on 05/02/2017. Patient currently with a LifeVest is unclear if the patient has even more reduced ejection fraction. Continue with IV Lasix and metoprolol succinate. 3. Status post aortic valve replacement Patient did have a severe aortic stenosis prior to that. 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 4. Metabolic encephalopathy Secondary to CO2 narcosis Treatments the underlying process and evaluate. Hold sedating medications. 5. DVT prophylaxis: Patient is anticoagulated on Coumadin. I do not know why the patient is actually on Coumadin. No mention of atrial fibrillation anywhere and current documentation and patient has bioprosthetic heart valve is that itself would not warrant Coumadin as well. Check records from [facility]. 6. Code Status With the patient's , patient is full code status. Code Visit Inpatient E&M: 10094 Init Hosp L3
--- NOTE | 2017-07-23 12:43 | HP.PCM_ITS ---
Problem List (1) Acute respiratory failure with hypercapnia Status: Acute (2) Heart failure with reduced ejection fraction Status: Acute (3) H/O aortic valve replacement Status: Chronic (4) Mitral valve insufficiency Status: Chronic Qualifiers: Cardiac valve disease etiology: nonrheumatic Qualified Code(s): I34.0 - Nonrheumatic mitral (valve) insufficiency Comment: Repair [facility] 06/2017 (5) Diabetes mellitus Status: Chronic Qualifiers: Diabetes mellitus type: type 2 Diabetes mellitus complication status: with kidney complications Diabetes mellitus complication detail: with chronic kidney disease Diabetes mellitus penitentiary insulin use: with penitentiary use Chronic kidney disease stage: stage 2 (mild) Qualified Code(s): E11.22 - Type 2 diabetes mellitus with diabetic chronic kidney disease; N18.2 - Chronic kidney disease, stage 2 (mild); 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 Was discharged to the transitional care unit on the and I was doing well. Patient was noted to be confused today. Yesterday, patient was felt had pneumonia and was started on antibiotics. Patient was sent to the emergency room with the confusion. Patient had a blood gas consistent with a respiratory acidosis with pH 7.21 and a PCO2 of 78.8. Patient was started on BiPAP. Patient's oxygenation actually improved but patient still remains somnolence patient is maintained on the BiPAP. Patient did receive IV Lasix in the emergency room. Patient is somnolent currently and unable to provide any history. History obtained through the emergency room physician as well as patient's at bedside. 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) Hypertension (Chronic) Dyspnea on exertion (Chronic) Allergic rhinitis (Chronic) Allergies No Known Allergies Allergy (Verified 07/23/17 06:54) Home Medications: Ambulatory Orders Medication Instructions Recorded Multivitamins,Therapeutic 1 tab PO DAILY 07/02/14 [Multivitamin] Acetaminophen 650 mg PO Q6H PRN 07/18/17 Albuterol Inhaler [Ventolin Hfa] 2 puff INHALATION Q4H PRN PRN 07/18/17 Aspirin [Aspirin, Baby] 81 mg PO DAILY@0800 07/18/17 Amiodarone HCl 400 mg PO DAILY 07/23/17 Azithromycin 250 mg PO DAILY 07/23/17 Cefdinir 300 mg PO BID 07/23/17 Insulin Detemir [Levemir (BKC)] 5 units SC BID 07/23/17 Iron Polysaccharide Complex 150 mg PO DAILYCM 07/23/17 [Ferrex 150] Melatonin 3 mg PO DAILY 07/23/17 Metoprolol Succinate [Toprol Xl] 12.5 mg PO BID 07/23/17 Polyethylene Glycol 3350 [Miralax] 17 gm PO DAILY 07/23/17 Senna [Senokot] 1 tablet PO BID 07/23/17 Spironolactone [Aldactone] 12.5 mg PO DAILY 07/23/17 Trazodone HCl [Desyrel] 50 mg PO QHS 07/23/17 Warfarin [Coumadin (PBKC)] 1 mg PO DAILY 07/23/17 Surgical History: adenoidectomy, cholecystectomy, tonsillectomy, - - Aortic valve replacement, mitral valve repair, left atrial appendage clip. Psychiatric History: No pertinent psych hx Smoking Status: Former smoker - *Family History Maternal History Items: Hypertension Paternal History Items: Hypertension Review of Systems Unable to obtain accurate/complete ROS d/t: Unable to obtain as the patient is confused. VTE Information - Inpt Only VTE Present on Admission: No VTE Pharm Prophylaxis ordered?: Yes Patient Problems: Active and Suspected Problems (Last Reviewed 05/17/17 @ 15:28 by Trice Bowling) Acute respiratory failure with hypercapnia (Acute) Heart failure with reduced ejection fraction (Acute) Metabolic encephalopathy (Acute) - Physical Exam General: Well developed, Well nourished, Confused, - - On BiPAP HEENT: Atraumatic, Normocephalic Neck: No Nodes, Thyroid Normal Size and Texture Lungs: Diminished, - - Faint crackles Cardiovascular: Regular rate, Regular Rhythm, Normal S1, Normal S2 Abdomen: Bowel Sounds Present, Soft, Non Tender, Non-Distended Extremities: No edema, No Calf Tenderness Skin: No rashes, No breakdown Musculoskeletal: No Tenderness to Palpation of Joints or Extremities, No Muscle Wasting Neurological: Muscle tone normal, - - No clonus Psych/Mental Status: - - Infused and somnolent Vital Signs Temp Pulse Resp BP Pulse Ox 37.0 C 106 H 15 99/71 100 07/23/17 11:30 07/23/17 11:56 07/23/17 11:51 07/23/17 11:51 07/23/17 11:51 Oxygen Flow Rate 2 Oxygen Delivery Method Bi-pap Weight: 77.9 kg Body Mass Index (BMI) 29.5 Intake and Output for Last 24 Hours 07/21/17 07/22/17 07/23/17 23:59 23:59 23:59 Intake Total 50 / 50 Output Total 600 / 600 Balance -550 / -550 Laboratory Tests Past 24 Hrs 07/23/17 07/23/17 10:58 11:00 Specimen Type WANDA Sample Site R Brachial VBG pH 7.26 L VBG pO2 16 L* VBG O2 Sat (Calc) 16 L VBG O2 Content 33 VBG Base Excess 4 H POC Mix VBG pCO2 Pt Tmp 69.4 H O2 Delivery Device Nasal Can Liter Flow 3.0 Blood Gas Notified Whom HOSP Blood Gas Notified Time 1055 MRSA (PCR) Pending POC Glucose 07/23/17 12:05 POC Glucose 198 H Clinical Impression(s) from Imaging Studies Brain CT 07/23/17 07:02 IMPRESSION: Chronic involutional changes of the brain. Electronically Signed: Davie Scott MD at 8:11 EST Tel [phone], Service support , Chest X-Ray 07/23/17 07:02 IMPRESSION: Progressive bilateral airspace disease suggestive of progressive infiltration versus CHF. Small bilateral pleural effusions. Follow-up recommended. Electronically Signed: Davie Scott MD at 8:14 EST Tel [phone], Service support , Assessment/Plan Active and Suspected Problems (Last Reviewed 05/17/17 @ 15:28 by Trice Bowling) Acute respiratory failure with hypercapnia (Acute) Heart failure with reduced ejection fraction (Acute) Metabolic encephalopathy (Acute) 1. Acute hypercapnic respiratory failure * [place] to be from my standpoint to be related with heart failure * Patient being treated for a possible pneumonia as well as heart failure. * Continue with BiPAP for now 2. Acute heart failure with reduced ejection fraction * Ejection fraction of 45-50% on 05/02/2017. * Patient currently with a LifeVest is unclear if the patient has even more reduced ejection fraction. * Continue with IV Lasix and metoprolol succinate. 3. Status post aortic valve replacement * Patient did have a severe aortic stenosis prior to that. 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 4. Metabolic encephalopathy * Secondary to CO2 narcosis * Treatments the underlying process and evaluate. Hold sedating medications. 5. DVT prophylaxis: * Patient is anticoagulated on Coumadin. * I do not know why the patient is actually on Coumadin. No mention of atrial fibrillation anywhere and current documentation and patient has bioprosthetic heart valve is that itself would not warrant Coumadin as well. * Check records from [facility]. 6. Code Status * With the patient's , patient is full code status. Code Visit Inpatient E&M: 98061 Init Hosp L3
[2017-07-23] MEDS: Polyethylene Glycol 3350 17 GM PACKET PO (13:53)
[2017-07-23] MEDS: Multivitamins,Therapeutic Tablet 1 TABLET PO (13:53)
[2017-07-23] MEDS: Amiodarone 200 MG Tablet 400 MG PO (13:53)
[2017-07-23 13:59] LABS: M R Staph aureus DNA By PCR Negative (Negative); Probe Check PASS; Specimen Processing Control PASS
[2017-07-23 16:07] LABS: Bedside Glucose 122 mg/dL (70-110)
[2017-07-23] MEDS: 0.9% NaCl Peripheral Flush Adult/Peds IV ×3 (16:52→22:25)
[2017-07-23] MEDS: 0.9% NaCl IVPB Med Flush (250 mL) 15 ML IV (16:52)
[2017-07-23 21:36] LABS: Bedside Glucose 253 mg/dL (70-110)
[2017-07-24] VITALS (33 sets, daily range): BP systolic 88–118; BP diastolic 47–83; PULSE 82–97; RESP 12–33; TEMP 36.8–37.9; O2SAT 90–100
[2017-07-24] MEDS: Ipratropium/Albuterol Sulfate 3 ML AMPUL.NEB INHALATION ×6 (02:53→22:40)
[2017-07-24] MEDS: CHLORHEXIDINE GLUC 2% CLOTH 1 EACH TOWELETTE TOPICAL (03:57)
[2017-07-24] MEDS: 0.9% NaCl Peripheral Flush Adult/Peds IV (03:58)
[2017-07-24 04:24] LABS: Hematocrit 26.6 % (40-54); Hemoglobin 8.2 g/dl (13.0-16.5); Mean Corp Hgb Conc 30.8 g/gl (32-36); Mean Corpuscular Hgb 32.7 pg (27.0-32.0); Mean Platelet Vol. 10.1 fl (6.2-12.0); Platelet Count 181 K/mm3 (150-450); RBC Distribution Width CV 18.1 % (11.6-14.6); RBC Distribution Width SD 66.3 fl (35.1-43.9); Red Blood Count 2.51 M/mm3 (4.6-6.2); White Blood Count 4.7 K/mm3 (4.4-11.0)
[2017-07-24 04:25] LABS: Scan Indicated on CBC? Y/N YES- FLAGS NOTED
[2017-07-24 04:43] LABS: Differential Comment SCANNED
[2017-07-24 04:44] LABS: Anion Gap 7 (5-15); BUN 21 mg/dL (7-18); BUN/Creat Ratio 13.2 RATIO (10-20); Calcium,Total 8.2 mg/dL (8.5-10.1); Chloride 100 mmol/L (98-107); Creatinine, Serum 1.59 mg/dL (0.70-1.30); EST Glomerular Filtration Rate 45 mL/min (>60); Est Glom Filt Rate - Afr Amer 55 mL/min (>60); Estimated Creatinine Clearance 33.61 ml/min; Glucose 148 mg/dL (74-106); Potassium 3.8 mmol/L (3.5-5.1); Sodium Level 139 mmol/L (136-145)
[2017-07-24] MEDS: Piperacil/Tazobactam 3.375 GM/50 ML ML IV ×3 (05:10→21:36)
[2017-07-24 06:35] LABS: Bedside Glucose 141 mg/dL (70-110)
--- NOTE | 2017-07-24 06:54 | PCM.PN.INT ---
Subjective: Patient did well overnight. No acute issues were reported from a hemodynamic standpoint. Patient did spike a fever, but reportedly tolerated this well by nursing. Patient's blood pressure has been marginal leading to holding of some of his medications. Patient is still somewhat confused, but is readily interactive Objective: Echocardiogram completed yesterday shows ejection fraction of 15-20% with a bioprosthetic aortic valve, mitral ring and moderate left pleural effusion. General: Alert, Cooperative, No apparent distress, Confused, Disoriented, - - Speaking in full sentences HEENT: Atraumatic, PERRLA, EOMI, Normocephalic, - - No scleral icterus or injection noted. Oral: Moist Mucosa, No Gingival or Mucosal Lesions/ Ulcerations Neck: Supple, No JVD, No Nodes, Trachea Midline Lungs: No rhonchi, No wheeze, No rales, Diminished, - - Symmetric expansion. Slight dullness to percussion at the left base Cardiovascular: Regular rate, Regular Rhythm, Normal S1, Normal S2, No murmurs, No rub noted, No Gallop, - - Patient initially in A. fib with RVR, but transition to sinus bradycardia overnight Abdomen: Bowel Sounds Present, Soft, Non Tender, Non-Distended Extremities: No clubbing, No cyanosis, No edema, Capillary Refill Less than 3 Seconds Skin: No rashes, No breakdown Musculoskeletal: No Tenderness to Palpation of Joints or Extremities, No Muscle Wasting Lymphatic: No Cervical, Supraclavicular, or Inguinal Adenopathy Neurological: Cranial nerves II-XII grossly intact, Neuro grossly intact, Motor Exam 5/5 strength throughout Psych/Mental Status: Appropriate, Flat Affect Vital Signs Temp Pulse Resp BP Pulse Ox 37.7 C H 88 23 H 101/70 90 07/24/17 06:00 07/24/17 06:00 07/24/17 06:00 07/24/17 06:00 07/24/17 06:00 Oxygen Flow Rate 2 Oxygen Delivery Method Room Air Weight: 78.8 kg Body Mass Index (BMI) 29.5 Intake and Output for Last 24 Hours 07/22/17 07/23/17 07/24/17 23:59 23:59 23:59 Intake Total 558.6 / 558.6 327.1 / 327.1 Output Total 1800 / 1800 200 / 200 Balance -1241.4 / -1241.4 127.1 / 127.1 Labs (Last 48 Hours) 07/23/17 07/23/17 07/23/17 10:58 11:00 12:05 WBC RBC Hgb Hct MCV MCH MCHC RDW RDW Differential Plt Count MPV Differential Comment PT INR Specimen Type WANDA Sample Site R Brachial VBG pH 7.26 L VBG pO2 16 L* VBG O2 Sat (Calc) 16 L VBG O2 Content 33 VBG Base Excess 4 H POC Mix VBG pCO2 Pt Tmp 69.4 H O2 Delivery Device Nasal Can Liter Flow 3.0 Blood Gas Notified Whom [facility] Blood Gas Notified Time 1055 Sodium Potassium Chloride Carbon Dioxide Anion Gap BUN Creatinine Estim Creat Clear Calc Est GFR (MDRD) Af Amer Est GFR (MDRD) Non-Af BUN/Creatinine Ratio Glucose Calcium Troponin I MRSA (PCR) Negative POC Glucose 198 H 07/23/17 07/23/17 07/23/17 13:00 15:56 17:00 WBC RBC Hgb Hct MCV MCH MCHC RDW RDW Differential Plt Count MPV Differential Comment PT INR Specimen Type Sample Site VBG pH VBG pO2 VBG O2 Sat (Calc) VBG O2 Content VBG Base Excess POC Mix VBG pCO2 Pt Tmp O2 Delivery Device Liter Flow Blood Gas Notified Whom Blood Gas Notified Time Sodium Potassium Chloride Carbon Dioxide Anion Gap BUN Creatinine Estim Creat Clear Calc Est GFR (MDRD) Af Amer Est GFR (MDRD) Non-Af BUN/Creatinine Ratio Glucose Calcium Troponin I 0.21 H 0.20 H MRSA (PCR) POC Glucose 122 H 07/23/17 07/23/17 07/24/17 21:25 22:25 04:00 WBC 4.7 RBC 2.51 L Hgb 8.2 L Hct 26.6 L MCV 106.0 H MCH 32.7 H MCHC 30.8 L RDW 18.1 H RDW Differential 66.3 H Plt Count 181 MPV 10.1 Differential Comment SCANNED PT INR Specimen Type Sample Site VBG pH VBG pO2 VBG O2 Sat (Calc) VBG O2 Content VBG Base Excess POC Mix VBG pCO2 Pt Tmp O2 Delivery Device Liter Flow Blood Gas Notified Whom Blood Gas Notified Time Sodium Potassium Chloride Carbon Dioxide Anion Gap BUN Creatinine Estim Creat Clear Calc Est GFR (MDRD) Af Amer Est GFR (MDRD) Non-Af BUN/Creatinine Ratio Glucose Calcium Troponin I 0.20 H MRSA (PCR) POC Glucose 253 H 07/24/17 07/24/17 07/24/17 04:00 04:00 06:30 WBC RBC Hgb Hct MCV MCH MCHC RDW RDW Differential Plt Count MPV Differential Comment PT 30.0 H INR 3.0 Specimen Type Sample Site VBG pH VBG pO2 VBG O2 Sat (Calc) VBG O2 Content VBG Base Excess POC Mix VBG pCO2 Pt Tmp O2 Delivery Device Liter Flow Blood Gas Notified Whom Blood Gas Notified Time Sodium 139 Potassium 3.8 Chloride 100 Carbon Dioxide 32.0 Anion Gap 7 BUN 21 H Creatinine 1.59 H Estim Creat Clear Calc 33.61 Est GFR (MDRD) Af Amer 55 L Est GFR (MDRD) Non-Af 45 L BUN/Creatinine Ratio 13.2 Glucose 148 H Calcium 8.2 L Troponin I MRSA (PCR) POC Glucose 141 H Clinical Impression(s) from Imaging Studies Brain CT 07/23/17 07:02 IMPRESSION: Chronic involutional changes of the brain. Electronically Signed: Davie Scott MD at 8:11 EST Tel [phone], Service support , Chest X-Ray 07/23/17 07:02 IMPRESSION: Progressive bilateral airspace disease suggestive of progressive infiltration versus CHF. Small bilateral pleural effusions. Follow-up recommended. Electronically Signed: Davie Scott MD at 8:14 EST Tel [phone], Service support , Assessment/Plan Active and Suspected Problems (Last Reviewed 05/17/17 @ 15:28 by Trice Bowling) Acute respiratory failure with hypercapnia (Acute) Heart failure with reduced ejection fraction (Acute) Metabolic encephalopathy (Acute) RECOMMENDATIONS: 1. Continue antibiotics pending culture data 2. Okay to continue with rate control medications if blood pressure allows 3. Lasix to daily 4. Possible thoracentesis once more hemodynamically stable 5. Await cardiology input 6. Possibly change to PCU status if okay with cardiology IMPRESSIONS: 1. Acute combined respiratory failure Exact etiology is unclear at this time. Patient does have extensive bilateral pulmonary infiltrates and an elevated BNP suggesting congestive heart failure. Patient with a severely depressed ejection fraction and left pleural effusion. Patient is responded very well to diuretic therapy. This would suggest a component of congestive heart failure. However, patient also spiked a fever overnight. Patient is fully anticoagulated at this time. Patient is on appropriate antibiotics. Patient may benefit from a thoracentesis, but this would require reversing of anticoagulation in the setting of severely depressed cardiac function. Will discuss with cardiology prior to initiation of any reversal of therapy. 2. Probable acute on chronic systolic congestive heart failure/atrial fibrillation CAD/recent valve repair and replacement Patient's reports no history of atrial fibrillation, but electronic medical record describes history of cardioversion. Patient is currently in sinus bradycardia at this time. Patient's rate control medication has been held secondary to blood pressure and patient has chemically cardioverted with amiodarone. Await consultation from cardiology. Patient is anticoagulated at this time with Coumadin therapy. Likely recheck INR in a daily basis given concomitant antibiotics and probable prolongation. Elevated cardiac enzymes likely secondary to demand ischemia. 3. Diabetes mellitus Patient is typically on Levemir therapy. Patient is currently tolerating a diet. Likely okay to increase Levemir therapy slightly. Does appear to have mild protein in the urine consistent with diabetic nephropathy 4. Chronic kidney disease stage II Good urine output thus far. We will continue to monitor. Patient would be at increased risk for contrast nephropathy. Since potassium is slightly elevated, but this is likely secondary to acidosis. 5. Insomnia/recent fall/advanced age Complicates care, management, recovery and prognosis. Patient is a full code as verified with patient's at the bedside. Code Visit Inpatient E&M: 00920 [facility] Hosp L3
--- NOTE | 2017-07-24 07:06 | PN_ITS ---
Subjective: Patient did well overnight. No acute issues were reported from a hemodynamic standpoint. Patient did spike a fever, but reportedly tolerated this well by nursing. Patient's blood pressure has been marginal leading to holding of some of his medications. Patient is still somewhat confused, but is readily interactive Objective: Echocardiogram completed yesterday shows ejection fraction of 15-20% with a bioprosthetic aortic valve, mitral ring and moderate left pleural effusion. General: Alert, Cooperative, No apparent distress, Confused, Disoriented, - - Speaking in full sentences HEENT: Atraumatic, PERRLA, EOMI, Normocephalic, - - No scleral icterus or injection noted. Oral: Moist Mucosa, No Gingival or Mucosal Lesions/ Ulcerations Neck: Supple, No JVD, No Nodes, Trachea Midline Lungs: No rhonchi, No wheeze, No rales, Diminished, - - Symmetric expansion. Slight dullness to percussion at the left base Cardiovascular: Regular rate, Regular Rhythm, Normal S1, Normal S2, No murmurs, No rub noted, No Gallop, - - Patient initially in A. fib with RVR, but transition to sinus bradycardia overnight Abdomen: Bowel Sounds Present, Soft, Non Tender, Non-Distended Extremities: No clubbing, No cyanosis, No edema, Capillary Refill Less than 3 Seconds Skin: No rashes, No breakdown Musculoskeletal: No Tenderness to Palpation of Joints or Extremities, No Muscle Wasting Lymphatic: No Cervical, Supraclavicular, or Inguinal Adenopathy Neurological: Cranial nerves II-XII grossly intact, Neuro grossly intact, Motor Exam 5/5 strength throughout Psych/Mental Status: Appropriate, Flat Affect Vital Signs Temp Pulse Resp BP Pulse Ox 37.7 C H 88 23 H 101/70 90 07/24/17 06:00 07/24/17 06:00 07/24/17 06:00 07/24/17 06:00 07/24/17 06:00 Oxygen Flow Rate 2 Oxygen Delivery Method Room Air Weight: 78.8 kg Body Mass Index (BMI) 29.5 Intake and Output for Last 24 Hours 07/22/17 07/23/17 07/24/17 23:59 23:59 23:59 Intake Total 558.6 / 558.6 327.1 / 327.1 Output Total 1800 / 1800 200 / 200 Balance -1241.4 / -1241.4 127.1 / 127.1 Labs (Last 48 Hours) 07/23/17 07/23/17 07/23/17 10:58 11:00 12:05 WBC RBC Hgb Hct MCV MCH MCHC RDW RDW Differential Plt Count MPV Differential Comment PT INR Specimen Type WANDA Sample Site R Brachial VBG pH 7.26 L VBG pO2 16 L* VBG O2 Sat (Calc) 16 L VBG O2 Content 33 VBG Base Excess 4 H POC Mix VBG pCO2 Pt Tmp 69.4 H O2 Delivery Device Nasal Can Liter Flow 3.0 Blood Gas Notified Whom [facility] Blood Gas Notified Time 1055 Sodium Potassium Chloride Carbon Dioxide Anion Gap BUN Creatinine Estim Creat Clear Calc Est GFR (MDRD) Af Amer Est GFR (MDRD) Non-Af BUN/Creatinine Ratio Glucose Calcium Troponin I MRSA (PCR) Negative POC Glucose 198 H 07/23/17 07/23/17 07/23/17 13:00 15:56 17:00 WBC RBC Hgb Hct MCV MCH MCHC RDW RDW Differential Plt Count MPV Differential Comment PT INR Specimen Type Sample Site VBG pH VBG pO2 VBG O2 Sat (Calc) VBG O2 Content VBG Base Excess POC Mix VBG pCO2 Pt Tmp O2 Delivery Device Liter Flow Blood Gas Notified Whom Blood Gas Notified Time Sodium Potassium Chloride Carbon Dioxide Anion Gap BUN Creatinine Estim Creat Clear Calc Est GFR (MDRD) Af Amer Est GFR (MDRD) Non-Af BUN/Creatinine Ratio Glucose Calcium Troponin I 0.21 H 0.20 H MRSA (PCR) POC Glucose 122 H 07/23/17 07/23/17 07/24/17 21:25 22:25 04:00 WBC 4.7 RBC 2.51 L Hgb 8.2 L Hct 26.6 L MCV 106.0 H MCH 32.7 H MCHC 30.8 L RDW 18.1 H RDW Differential 66.3 H Plt Count 181 MPV 10.1 Differential Comment SCANNED PT INR Specimen Type Sample Site VBG pH VBG pO2 VBG O2 Sat (Calc) VBG O2 Content VBG Base Excess POC Mix VBG pCO2 Pt Tmp O2 Delivery Device Liter Flow Blood Gas Notified Whom Blood Gas Notified Time Sodium Potassium Chloride Carbon Dioxide Anion Gap BUN Creatinine Estim Creat Clear Calc Est GFR (MDRD) Af Amer Est GFR (MDRD) Non-Af BUN/Creatinine Ratio Glucose Calcium Troponin I 0.20 H MRSA (PCR) POC Glucose 253 H 07/24/17 07/24/17 07/24/17 04:00 04:00 06:30 WBC RBC Hgb Hct MCV MCH MCHC RDW RDW Differential Plt Count MPV Differential Comment PT 30.0 H INR 3.0 Specimen Type Sample Site VBG pH VBG pO2 VBG O2 Sat (Calc) VBG O2 Content VBG Base Excess POC Mix VBG pCO2 Pt Tmp O2 Delivery Device Liter Flow Blood Gas Notified Whom Blood Gas Notified Time Sodium 139 Potassium 3.8 Chloride 100 Carbon Dioxide 32.0 Anion Gap 7 BUN 21 H Creatinine 1.59 H Estim Creat Clear Calc 33.61 Est GFR (MDRD) Af Amer 55 L Est GFR (MDRD) Non-Af 45 L BUN/Creatinine Ratio 13.2 Glucose 148 H Calcium 8.2 L Troponin I MRSA (PCR) POC Glucose 141 H Clinical Impression(s) from Imaging Studies Brain CT 07/23/17 07:02 IMPRESSION: Chronic involutional changes of the brain. Electronically Signed: Davie Scott MD at 8:11 EST Tel [phone], Service support , Chest X-Ray 07/23/17 07:02 IMPRESSION: Progressive bilateral airspace disease suggestive of progressive infiltration versus CHF. Small bilateral pleural effusions. Follow-up recommended. Electronically Signed: Davie Scott MD at 8:14 EST Tel [phone], Service support , Assessment/Plan Active and Suspected Problems (Last Reviewed 05/17/17 @ 15:28 by Trice Bowling) Acute respiratory failure with hypercapnia (Acute) Heart failure with reduced ejection fraction (Acute) Metabolic encephalopathy (Acute) RECOMMENDATIONS: 1. Continue antibiotics pending culture data 2. Okay to continue with rate control medications if blood pressure allows 3. Lasix to daily 4. Possible thoracentesis once more hemodynamically stable 5. Await cardiology input 6. Possibly change to PCU status if okay with cardiology IMPRESSIONS: 1. Acute combined respiratory failure Exact etiology is unclear at this time. Patient does have extensive bilateral pulmonary infiltrates and an elevated BNP suggesting congestive heart failure. Patient with a severely depressed ejection fraction and left pleural effusion. Patient is responded very well to diuretic therapy. This would suggest a component of congestive heart failure. However, patient also spiked a fever overnight. Patient is fully anticoagulated at this time. Patient is on appropriate antibiotics. Patient may benefit from a thoracentesis, but this would require reversing of anticoagulation in the setting of severely depressed cardiac function. Will discuss with cardiology prior to initiation of any reversal of therapy. 2. Probable acute on chronic systolic congestive heart failure/atrial fibrillation CAD/recent valve repair and replacement Patient's reports no history of atrial fibrillation, but electronic medical record describes history of cardioversion. Patient is currently in sinus bradycardia at this time. Patient's rate control medication has been held secondary to blood pressure and patient has chemically cardioverted with amiodarone. Await consultation from cardiology. Patient is anticoagulated at this time with Coumadin therapy. Likely recheck INR in a daily basis given concomitant antibiotics and probable prolongation. Elevated cardiac enzymes likely secondary to demand ischemia. 3. Diabetes mellitus Patient is typically on Levemir therapy. Patient is currently tolerating a diet. Likely okay to increase Levemir therapy slightly. Does appear to have mild protein in the urine consistent with diabetic nephropathy 4. Chronic kidney disease stage II Good urine output thus far. We will continue to monitor. Patient would be at increased risk for contrast nephropathy. Since potassium is slightly elevated, but this is likely secondary to acidosis. 5. Insomnia/recent fall/advanced age Complicates care, management, recovery and prognosis. Patient is a full code as verified with patient's at the bedside. Code Visit Inpatient E&M: 16990 [facility] Hosp L3
[2017-07-24 08:11] LABS: Bedside Glucose 167 mg/dL (70-110)
[2017-07-24] MEDS: Amiodarone 200 MG Tablet 400 MG PO (09:11)
[2017-07-24] MEDS: Aspirin 81 MG TAB.CHEW PO (09:11)
[2017-07-24] MEDS: Metoprolol(XL)Succ 25 MG Tablet 12.5 MG PO ×2 (09:11→21:37)
[2017-07-24] MEDS: Multivitamins,Therapeutic Tablet 1 TABLET PO (09:12)
[2017-07-24] MEDS: Polyethylene Glycol 3350 17 GM PACKET PO (09:12)
[2017-07-24] MEDS: Iron Polysaccharide Complex 150 MG CAPSULE PO (09:12)
[2017-07-24] MEDS: Furosemide 40 MG/4 ML Vial IV ×2 (09:13→18:51)
[2017-07-24 10:46] LABS: Magnesium 1.7 mg/dL (1.6-2.6)
[2017-07-24 11:11] LABS: Bedside Glucose 201 mg/dL (70-110)
--- NOTE | 2017-07-24 11:12 | PCM.CONS.C ---
Problem List (1) Critical aortic valve stenosis Status: Resolved Comment: Reported replacement at [facility] June 2017 (2) Acute on chronic combined systolic (congestive) and diastolic (congestive) heart failure Status: Acute (3) H/O aortic valve replacement Status: Chronic (4) Cardiomyopathy in disease classified elsewhere Status: Chronic (5) Hypertension Status: Chronic Reason for Consult Date of Consultation: 07/24/17 Reason for Consultation: Aortic valve replacement, mitral valve repair, LV dysfunction, congestive heart failure. History of Present Illness: The patient is a 77 year old M, patient of mine, recently underwent aortic valve replacement and mitral valve repair at the [facility] around May 2017. From there apparently he was admitted for about 5 days, and subsequently transferred to a rehab center here locally. Apparently the patient developed fevers and chills as well as shortness of breath and was brought to the emergency room at [facility] on the day of admission. It was thought the patient may have an infection such as pneumonia, and he was subsequently admitted. Repeat echocardiogram on admission showed severe LV deterioration with an overall ejection fraction around 15%. No apparent vegetations were seen on the bioprosthetic aortic valve, and the mitral valve repair appeared to be adequate. His RVSP was found to be 30, but appear to be underestimated based upon his clinical presentation. He was also noted to have bilateral pleural effusions on his chest x-ray and the patient complained of lower extremity edema. Patient was treated with IV antibiotics, initially IV fluid resuscitation but subsequently to IV Lasix therapy to assist with diuresis. Patient denies any chest pain or angina. Left her catheterization prior to his aortic valve replacement showed normal coronary arteries. Currently the patient sitting in a chair, conversing well, no acute distress. He showed ectopic atrial rhythm, left anterior hemiblock, no acute changes. As best I can tell his LV function was found to be low at the [facility] and the patient was placed on a [employer] external defibrillator.] Past Medical History Allergies/Adverse Reactions: Allergies No Known Allergies Allergy (Verified 07/23/17 06:54) Home Medications: Ambulatory Orders Medication Instructions Recorded Multivitamins,Therapeutic 1 tab PO DAILY 07/02/14 [Multivitamin] Acetaminophen 650 mg PO Q6H PRN 07/18/17 Albuterol Inhaler [Ventolin Hfa] 2 puff INHALATION Q4H PRN PRN 07/18/17 Aspirin [Aspirin, Baby] 81 mg PO DAILY@0800 07/18/17 Amiodarone HCl 400 mg PO DAILY 07/23/17 Azithromycin 250 mg PO DAILY 07/23/17 Cefdinir 300 mg PO BID 07/23/17 Insulin Detemir [Levemir ([facility])] 5 units SC BID 07/23/17 Iron Polysaccharide Complex 150 mg PO DAILYCM 07/23/17 [Ferrex 150] Melatonin 3 mg PO DAILY 07/23/17 Metoprolol Succinate [Toprol Xl] 12.5 mg PO BID 07/23/17 Polyethylene Glycol 3350 [Miralax] 17 gm PO DAILY 07/23/17 Senna [Senokot] 1 tablet PO BID 07/23/17 Spironolactone [Aldactone] 12.5 mg PO DAILY 07/23/17 Trazodone HCl [Desyrel] 50 mg PO QHS 07/23/17 Warfarin [Coumadin ([facility]KC)] 1 mg PO DAILY 07/23/17 Past Medical History (Chronic Problems): Chronic Problems (Last Reviewed 05/17/17 @ 15:28 by Trice Bowling) Mitral valve insufficiency (Chronic) Repair [facility] 06/2017 Diabetes mellitus (Chronic) Chronic kidney disease (Chronic) H/O aortic valve replacement (Chronic) 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) Type 2 diabetes mellitus with hyperglycemia (Chronic) Cardiomyopathy in disease classified elsewhere (Chronic) 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) Hypertension (Chronic) Dyspnea on exertion (Chronic) Allergic rhinitis (Chronic) Surgical History: adenoidectomy, cholecystectomy, tonsillectomy, - - Aortic valve replacement, mitral valve repair, left atrial appendage clip. Psychiatric History: No pertinent psych hx - *Family History Maternal Family History: Family History (Last Reviewed 05/17/17 @ 15:28 by Trice Bowling) Mother Hypertension History Items: Hypertension Paternal Family History: Family History (Last Reviewed 05/17/17 @ 15:28 by Trice Bowling) Mother Hypertension History Items: Hypertension Smoking Status: Former smoker Review of Systems - Review of Systems General: Denies: Fever, Night Sweats, Fatigue Cardiovascular: Reports: Shortness of Breath, Shortness of Breath at Rest, Peripheral Edema. Denies: Chest Discomfort, Orthopnea, PND, Palpitations, Lightheadedness, Dizziness, Near Syncope, Syncope Respiratory: Denies: Cough, Sputum Production, Hemoptysis Gastrointestinal: Denies: Hematemesis, Hematochezia, Melena Genitourinary: Denies: Dysuria, Hematuria Skin: Denies: Rash Subjectve: Patient sitting in chair, no acute distress. Objective: Vital Signs Temp Pulse Resp BP Pulse Ox 99.8 F H 93 25 H 113/65 96 07/24/17 08:00 07/24/17 09:11 07/24/17 08:00 07/24/17 09:11 07/24/17 08:00 Oxygen Flow Rate 2 Oxygen Delivery Method Room Air Weight: 173 lb 11.588 oz Body Mass Index (BMI) 29.5 Intake and Output for Last 24 Hours 07/22/17 07/23/17 07/24/17 23:59 23:59 23:59 Intake Total 558.6 / 558.6 327.1 / 327.1 Output Total 1800 / 1800 200 / 200 Balance -1241.4 / -1241.4 127.1 / 127.1 General: Awake, Alert, Oriented x 3 HEENT: PERRL, EOMI, Sclera Non Icteric Neck: Supple, Good ROM, No Lymph Node Enlargement Lungs: Rales - Fernando Bases Cardiovascular: Regular Rhythm, Normal S1, Normal S2, No Rubs, No Gallops Murmur Murmur: Grade 2/6, Crescendo-Decrescendo Vascular: No Carotid Bruits, Normal Femoral Pulses, Normal Radial Pulses, Normal Dorsalis Pedal Pulse, Normal Posterior Tibial Pulses Abdomen: Bowel Sounds Present, Soft, Non Tender, No HSM, No Organomegaly Extremities: No Cyanosis, No Clubbing, No edema Neurological: No Focal Motor or Sensory Deficit 07/23/17 13:00: Troponin I 0.21 H 07/23/17 17:00: Troponin I 0.20 H 07/23/17 22:25: Troponin I 0.20 H 07/24/17 04:00: WBC 4.7, RBC 2.51 L, Hgb 8.2 L, Hct 26.6 L, MCV 106.0 H, MCH 32.7 H, MCHC 30.8 L, RDW 18.1 H, RDW Differential 66.3 H, Plt Count 181, MPV 10.1 07/24/17 04:00: PT 30.0 H, INR 3.0 07/24/17 04:00: Sodium 139, Potassium 3.8, Chloride 100, Carbon Dioxide 32.0, Anion Gap 7, BUN 21 H, Creatinine 1.59 H, Est GFR (MDRD) Af Amer 55 L, Est GFR (MDRD) Non-Af 45 L, BUN/Creatinine Ratio 13.2, Glucose 148 H, Calcium 8.2 L 07/24/17 04:00: Magnesium 1.7 Rhythm: EKG: ECHO: Stress Test: Cardiac Cath: PCI: CT Surgery: Holter monitor: EPS: PPM: CXR: Chest CT Scan: Assessment/Plan 1. LV dysfunction: The patient has had acute deterioration of his LV function after his aortic valve replacement and mitral valve repair, and appears to be in congestive heart failure with bilateral pleural effusions, shortness of breath, and lower extremity edema. I recommend gentle diuresis given his chronic renal insufficiency with Lasix 40 mg IV twice daily and attempt to diurese a proximally 1-1.5 L net negative per day. I would not recommend thoracentesis at this time as his chest x-ray does not appear to have significant pleural effusion to justify reversing his Coumadin at this time. Given the patient's LV dysfunction he will require lifelong anticoagulation to avoid LV thrombus formation. Given his normal coronary arteries preoperatively and lack of anginal symptoms postoperatively, I would not recommend repeat catheterization at this time. Once the patient has reached his dry weight re, and we will switch him from IV Lasix to p.o. Lasix. Once the patient's hemoglobin has normalized, he has gone through cardiac rehab, we will can reconsider reechoing him to determine if his LV function has improved. In the meantime I would discontinue his in addition when she is reached his dry weight, we can switch him from metoprolol to Coreg which would be more appropriate given his LV dysfunction. In the meantime we will continue with a 1500 cc fluid restriction. Please max concentrate all IV drips. 2. Atrial fibrillation: Continue amiodarone 200 mg p.o. daily. He currently appears to be an ectopic atrial rhythm versus normal sinus rhythm with first-degree AV block. Continue anticoagulation. 3. Discussed with Dr. Mckeon. Thank you very much for the opportunity to precipitate in the cardiac care of your patient. Consultation time took place between 10 AM and 10:30 AM. Code Visit Inpatient E&M: 60780 Init Hosp L2
--- NOTE | 2017-07-24 11:23 | CON.PCM_ITS ---
Problem List (1) Critical aortic valve stenosis Status: Resolved Comment: Reported replacement at [facility] June 2017 (2) Acute on chronic combined systolic (congestive) and diastolic (congestive) heart failure Status: Acute (3) H/O aortic valve replacement Status: Chronic (4) Cardiomyopathy in disease classified elsewhere Status: Chronic (5) Hypertension Status: Chronic Reason for Consult Date of Consultation: 07/24/17 Reason for Consultation: Aortic valve replacement, mitral valve repair, LV dysfunction, congestive heart failure. History of Present Illness: The patient is a 77 year old M, patient of mine, recently underwent aortic valve replacement and mitral valve repair at the [facility] around May 2017. From there apparently he was admitted for about 5 days, and subsequently transferred to a rehab center here locally. Apparently the patient developed fevers and chills as well as shortness of breath and was brought to the emergency room at [facility] on the day of admission. It was thought the patient may have an infection such as pneumonia, and he was subsequently admitted. Repeat echocardiogram on admission showed severe LV deterioration with an overall ejection fraction around 15%. No apparent vegetations were seen on the bioprosthetic aortic valve, and the mitral valve repair appeared to be adequate. His RVSP was found to be 30, but appear to be underestimated based upon his clinical presentation. He was also noted to have bilateral pleural effusions on his chest x-ray and the patient complained of lower extremity edema. Patient was treated with IV antibiotics, initially IV fluid resuscitation but subsequently to IV Lasix therapy to assist with diuresis. Patient denies any chest pain or angina. Left her catheterization prior to his aortic valve replacement showed normal coronary arteries. Currently the patient sitting in a chair, conversing well, no acute distress. He showed ectopic atrial rhythm, left anterior hemiblock, no acute changes. As best I can tell his LV function was found to be low at the [facility] and the patient was placed on a [employer] external defibrillator.] Past Medical History Allergies/Adverse Reactions: Allergies No Known Allergies Allergy (Verified 07/23/17 06:54) Home Medications: Ambulatory Orders Medication Instructions Recorded Multivitamins,Therapeutic 1 tab PO DAILY 07/02/14 [Multivitamin] Acetaminophen 650 mg PO Q6H PRN 07/18/17 Albuterol Inhaler [Ventolin Hfa] 2 puff INHALATION Q4H PRN PRN 07/18/17 Aspirin [Aspirin, Baby] 81 mg PO DAILY@0800 07/18/17 Amiodarone HCl 400 mg PO DAILY 07/23/17 Azithromycin 250 mg PO DAILY 07/23/17 Cefdinir 300 mg PO BID 07/23/17 Insulin Detemir [Levemir ([facility])] 5 units SC BID 07/23/17 Iron Polysaccharide Complex 150 mg PO DAILYCM 07/23/17 [Ferrex 150] Melatonin 3 mg PO DAILY 07/23/17 Metoprolol Succinate [Toprol Xl] 12.5 mg PO BID 07/23/17 Polyethylene Glycol 3350 [Miralax] 17 gm PO DAILY 07/23/17 Senna [Senokot] 1 tablet PO BID 07/23/17 Spironolactone [Aldactone] 12.5 mg PO DAILY 07/23/17 Trazodone HCl [Desyrel] 50 mg PO QHS 07/23/17 Warfarin [Coumadin (PBKC)] 1 mg PO DAILY 07/23/17 Past Medical History (Chronic Problems): Chronic Problems (Last Reviewed 05/17/17 @ 15:28 by Trice Bowling) Mitral valve insufficiency (Chronic) Repair [facility] 06/2017 Diabetes mellitus (Chronic) Chronic kidney disease (Chronic) H/O aortic valve replacement (Chronic) 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) Type 2 diabetes mellitus with hyperglycemia (Chronic) Cardiomyopathy in disease classified elsewhere (Chronic) 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) Hypertension (Chronic) Dyspnea on exertion (Chronic) Allergic rhinitis (Chronic) Surgical History: adenoidectomy, cholecystectomy, tonsillectomy, - - Aortic valve replacement, mitral valve repair, left atrial appendage clip. Psychiatric History: No pertinent psych hx - *Family History Maternal Family History: Family History (Last Reviewed 05/17/17 @ 15:28 by Trice Bowling) Mother Hypertension History Items: Hypertension Paternal Family History: Family History (Last Reviewed 05/17/17 @ 15:28 by Trice Bowling) Mother Hypertension History Items: Hypertension Smoking Status: Former smoker Review of Systems - Review of Systems General: Denies: Fever, Night Sweats, Fatigue Cardiovascular: Reports: Shortness of Breath, Shortness of Breath at Rest, Peripheral Edema. Denies: Chest Discomfort, Orthopnea, PND, Palpitations, Lightheadedness, Dizziness, Near Syncope, Syncope Respiratory: Denies: Cough, Sputum Production, Hemoptysis Gastrointestinal: Denies: Hematemesis, Hematochezia, Melena Genitourinary: Denies: Dysuria, Hematuria Skin: Denies: Rash Subjectve: Patient sitting in chair, no acute distress. Objective: Vital Signs Temp Pulse Resp BP Pulse Ox 99.8 F H 93 25 H 113/65 96 07/24/17 08:00 07/24/17 09:11 07/24/17 08:00 07/24/17 09:11 07/24/17 08:00 Oxygen Flow Rate 2 Oxygen Delivery Method Room Air Weight: 173 lb 11.588 oz Body Mass Index (BMI) 29.5 Intake and Output for Last 24 Hours 07/22/17 07/23/17 07/24/17 23:59 23:59 23:59 Intake Total 558.6 / 558.6 327.1 / 327.1 Output Total 1800 / 1800 200 / 200 Balance -1241.4 / -1241.4 127.1 / 127.1 General: Awake, Alert, Oriented x 3 HEENT: PERRL, EOMI, Sclera Non Icteric Neck: Supple, Good ROM, No Lymph Node Enlargement Lungs: Rales - Fernando Bases Cardiovascular: Regular Rhythm, Normal S1, Normal S2, No Rubs, No Gallops Murmur Murmur: Grade 2/6, Crescendo-Decrescendo Vascular: No Carotid Bruits, Normal Femoral Pulses, Normal Radial Pulses, Normal Dorsalis Pedal Pulse, Normal Posterior Tibial Pulses Abdomen: Bowel Sounds Present, Soft, Non Tender, No HSM, No Organomegaly Extremities: No Cyanosis, No Clubbing, No edema Neurological: No Focal Motor or Sensory Deficit 07/23/17 13:00: Troponin I 0.21 H 07/23/17 17:00: Troponin I 0.20 H 07/23/17 22:25: Troponin I 0.20 H 07/24/17 04:00: WBC 4.7, RBC 2.51 L, Hgb 8.2 L, Hct 26.6 L, MCV 106.0 H, MCH 32.7 H, MCHC 30.8 L, RDW 18.1 H, RDW Differential 66.3 H, Plt Count 181, MPV 10.1 07/24/17 04:00: PT 30.0 H, INR 3.0 07/24/17 04:00: Sodium 139, Potassium 3.8, Chloride 100, Carbon Dioxide 32.0, Anion Gap 7, BUN 21 H, Creatinine 1.59 H, Est GFR (MDRD) Af Amer 55 L, Est GFR ( MDRD) Non-Af 45 L, BUN/Creatinine Ratio 13.2, Glucose 148 H, Calcium 8.2 L 07/24/17 04:00: Magnesium 1.7 Rhythm: EKG: ECHO: Stress Test: Cardiac Cath: PCI: CT Surgery: Holter monitor: EPS: PPM: CXR: Chest CT Scan: Assessment/Plan 1. LV dysfunction: The patient has had acute deterioration of his LV function after his aortic valve replacement and mitral valve repair, and appears to be in congestive heart failure with bilateral pleural effusions, shortness of breath, and lower extremity edema. I recommend gentle diuresis given his chronic renal insufficiency with Lasix 40 mg IV twice daily and attempt to diurese a proximally 1-1.5 L net negative per day. I would not recommend thoracentesis at this time as his chest x-ray does not appear to have significant pleural effusion to justify reversing his Coumadin at this time. Given the patient's LV dysfunction he will require lifelong anticoagulation to avoid LV thrombus formation. Given his normal coronary arteries preoperatively and lack of anginal symptoms postoperatively, I would not recommend repeat catheterization at this time. Once the patient has reached his dry weight re, and we will switch him from IV Lasix to p.o. Lasix. Once the patient's hemoglobin has normalized, he has gone through cardiac rehab , we will can reconsider reechoing him to determine if his LV function has improved. In the meantime I would discontinue his in addition when she is reached his dry weight, we can switch him from metoprolol to Coreg which would be more appropriate given his LV dysfunction. In the meantime we will continue with a 1500 cc fluid restriction. Please max concentrate all IV drips. 2. Atrial fibrillation: Continue amiodarone 200 mg p.o. daily. He currently appears to be an ectopic atrial rhythm versus normal sinus rhythm with first- degree AV block. Continue anticoagulation. 3. Discussed with Dr. Mckeon. Thank you very much for the opportunity to precipitate in the cardiac care of your patient. Consultation time took place between 10 AM and 10:30 AM. Code Visit Inpatient E&M: 97555 Init Hosp L2
--- NOTE | 2017-07-24 11:51 | CASEMGMT ---
Social Work Met with pt in room and introduced self and role of SW. Pt confirms that he was in TCU prior to admission to hospital and plans to return to TCU upon d/c to complete his rehabilitation prior to return home. Pt will need preauth from insurance prior to returning to TCU. Update provided to Richa and she is aware of pt plan to return when medically ready. SW will continue to follow for SNF placement. Plan: TCU, precert will need to be obtained prior to return LALO Patel
[2017-07-24 16:11] LABS: Bedside Glucose 247 mg/dL (70-110)
--- NOTE | 2017-07-24 16:30 | PCM.PN.HOSP ---
Patient Problems: Active and Suspected Problems (Last Reviewed 05/17/17 @ 15:28 by Trice Bowling) Acute respiratory failure with hypercapnia (Acute) Heart failure with reduced ejection fraction (Acute) Metabolic encephalopathy (Acute) Subjective: Breathing better. Taken off BiPAP as well as taken off nasal cannula as well. Vitals/I&O's: Vital Signs Temp Pulse Resp BP Pulse Ox 37.7 C H 82 21 H 97/56 L 100 07/24/17 15:00 07/24/17 15:00 07/24/17 15:00 07/24/17 15:00 07/24/17 15:00 Oxygen Flow Rate 2 Oxygen Delivery Method Room Air Weight: 78.8 kg Body Mass Index (BMI) 29.5 Intake and Output for Last 24 Hours 07/22/17 07/23/17 07/24/17 23:59 23:59 23:59 Intake Total 558.6 / 558.6 727.1 / 727.1 Output Total 1800 / 1800 1100 / 1100 Balance -1241.4 / -1241.4 -372.9 / -372.9 General: Alert, Cooperative, No apparent distress HEENT: Atraumatic, Normocephalic Neck: No Nodes, Thyroid Normal Size and Texture Lungs: Clear to auscultation, Normal air movement, No rhonchi, No wheeze Cardiovascular: Regular rate, Regular Rhythm, Normal S1, Normal S2, - - Aortic valve click Abdomen: Bowel Sounds Present, Soft, Non Tender, Non-Distended Extremities: No Calf Tenderness, Edema - Trace Skin: No rashes, No breakdown Psych/Mental Status: Normal Affect, Appropriate Laboratory Results 07/23/17 17:00: Troponin I 0.20 H 07/23/17 21:25: POC Glucose 253 H 07/23/17 22:25: Troponin I 0.20 H 07/24/17 04:00: WBC 4.7, RBC 2.51 L, Hgb 8.2 L, Hct 26.6 L, MCV 106.0 H, MCH 32.7 H, MCHC 30.8 L, RDW 18.1 H, RDW Differential 66.3 H, Plt Count 181, MPV 10.1, Differential Comment SCANNED 07/24/17 04:00: PT 30.0 H, INR 3.0 07/24/17 04:00: Sodium 139, Potassium 3.8, Chloride 100, Carbon Dioxide 32.0, Anion Gap 7, BUN 21 H, Creatinine 1.59 H, Estim Creat Clear Calc 33.61, Est GFR (MDRD) Af Amer 55 L, Est GFR (MDRD) Non-Af 45 L, BUN/Creatinine Ratio 13.2, Glucose 148 H, Calcium 8.2 L 07/24/17 04:00: Magnesium 1.7 07/24/17 06:30: POC Glucose 141 H 07/24/17 08:02: POC Glucose 167 H 07/24/17 11:05: POC Glucose 201 H 07/24/17 16:04: POC Glucose 247 H Current Medications Acetaminophen (Tylenol) 650 mg PO Q6H PRN PRN Reason: MILD-MOD PAIN (-10/11) Albuterol/Ipratropium (Duoneb) 3 ml INHALATION Q4H.RT [facility] Last Admin: 07/24/17 15:47 Dose: 3 ml Amiodarone HCl (Cordarone) 400 mg PO DAILY [facility] Last Admin: 07/24/17 09:11 Dose: 400 mg Aspirin (Aspirin, Baby) 81 mg PO DAILY@0800 [facility] Last Admin: 07/24/17 09:11 Dose: 81 mg Chlorhexidine Gluconate () 1 each TOPICAL DAILY [facility] Last Admin: 07/24/17 03:57 Dose: 1 each Dextrose (D50w Syringe) 0 gm IV X1 PRN; Protocol PRN Reason: Hypoglycemia Furosemide (Lasix) 40 mg IV BID@1000,1800 [facility] Glucagon () 1 mg IM .X1 PRN PRN Reason: Hypoglycemia Guaifenesin (Mucinex) 600 mg PO BID [facility] Sodium Chloride () 250 mls @ 15 mls/hr IV .[id number] PRN PRN Reason: SALINE FLUSH Last Admin: 07/23/17 16:52 Dose: 15 mls/hr Piperacillin Sod/Tazobactam Sod (Zosyn) 3.375 gm in 50 mls @ 12.5 mls/hr IV Q8 [facility] Last Admin: 07/24/17 14:02 Dose: 12.5 mls/hr Sodium Chloride () 250 mls @ 15 mls/hr IV .[id number] PRN PRN Reason: SALINE FLUSH Insulin Aspart (Novolog Flexpen (Bkc)) 0 units SC ACHS [facility] PRN Reason: Protocol Last Admin: 07/24/17 11:12 Dose: 2 u Insulin Detemir (Levemir ([facility])) 5 units SC BID [facility] Last Admin: 07/24/17 11:08 Dose: 10 u Magnesium Hydroxide (Milk Of Magnesia) 30 ml PO DAILY PRN PRN PRN Reason: Constipation Metoprolol Succinate (Toprol Xl (Beta Severo)) 12.5 mg PO BID [facility] Last Admin: 07/24/17 09:11 Dose: 12.5 mg Multivitamins (Multivitamin) 1 tablet PO DAILY@0800 [facility] Last Admin: 07/24/17 09:12 Dose: 1 tablet Ondansetron HCl (Zofran) 4 mg IV Q8H PRN PRN PRN Reason: NAUSEA Polyethylene Glycol (Miralax) 17 gm PO DAILY [facility] Last Admin: 07/24/17 09:12 Dose: 17 gm Polysaccharide [facility] ([facility]rex 150) [facility] Admin: 07/24/17 09:12 Dose: 150 mg Sodium Chloride () 5 - 30 ml IV UD PRN PRN Reason: SALINE FLUSH Last Admin: 07/24/17 03:58 Dose: 20 ml Warfarin Sodium (Coumadin (Pbkc)) 1 mg PO DAILY@1700 [facility] Last Admin: 07/23/17 16:53 Dose: 1 mg Assessment/Plan Active and Suspected Problems (Last Reviewed 05/17/17 @ 15:28 by Trice Bowling) Acute respiratory failure with hypercapnia (Acute) Heart failure with reduced ejection fraction (Acute) Metabolic encephalopathy (Acute) 1. Acute hypercapnic respiratory failure M[place] to be from my standpoint to be related with heart failure Patient being treated for a possible pneumonia as well as heart failure. Much improved at this time. Taken off of all oxygen and doing well. 2. Acute heart failure with reduced ejection fraction Ejection fraction now down to 15-20% from 45-50% on 05/02/2017. Patient has a LifeVest Continue with IV Lasix until reach his dry weight and metoprolol succinate. 3. Status post aortic valve replacement Patient did have a severe aortic stenosis prior to that. 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 4. Metabolic encephalopathy Secondary to CO2 narcosis Treatments the underlying process and evaluate. Hold sedating medications. Resolved 5. Atrial fibrillation: Patient is anticoagulated on Coumadin. On amiodarone 6. DVT prophylaxis: Patient is anticoagulated. Transfer to the progressive care unit. Code Visit Inpatient E&M: 98886 Subs Hosp L2
--- NOTE | 2017-07-24 16:35 | PN_ITS ---
Patient Problems: Active and Suspected Problems (Last Reviewed 05/17/17 @ 15:28 by Trice Bowling) Acute respiratory failure with hypercapnia (Acute) Heart failure with reduced ejection fraction (Acute) Metabolic encephalopathy (Acute) Subjective: Breathing better. Taken off BiPAP as well as taken off nasal cannula as well. Vitals/I&O's: Vital Signs Temp Pulse Resp BP Pulse Ox 37.7 C H 82 21 H 97/56 L 100 07/24/17 15:00 07/24/17 15:00 07/24/17 15:00 07/24/17 15:00 07/24/17 15:00 Oxygen Flow Rate 2 Oxygen Delivery Method Room Air Weight: 78.8 kg Body Mass Index (BMI) 29.5 Intake and Output for Last 24 Hours 07/22/17 07/23/17 07/24/17 23:59 23:59 23:59 Intake Total 558.6 / 558.6 727.1 / 727.1 Output Total 1800 / 1800 1100 / 1100 Balance -1241.4 / -1241.4 -372.9 / -372.9 General: Alert, Cooperative, No apparent distress HEENT: Atraumatic, Normocephalic Neck: No Nodes, Thyroid Normal Size and Texture Lungs: Clear to auscultation, Normal air movement, No rhonchi, No wheeze Cardiovascular: Regular rate, Regular Rhythm, Normal S1, Normal S2, - - Aortic valve click Abdomen: Bowel Sounds Present, Soft, Non Tender, Non-Distended Extremities: No Calf Tenderness, Edema - Trace Skin: No rashes, No breakdown Psych/Mental Status: Normal Affect, Appropriate Laboratory Results 07/23/17 17:00: Troponin I 0.20 H 07/23/17 21:25: POC Glucose 253 H 07/23/17 22:25: Troponin I 0.20 H 07/24/17 04:00: WBC 4.7, RBC 2.51 L, Hgb 8.2 L, Hct 26.6 L, MCV 106.0 H, MCH 32.7 H, MCHC 30.8 L, RDW 18.1 H, RDW Differential 66.3 H, Plt Count 181, MPV 10.1, Differential Comment SCANNED 07/24/17 04:00: PT 30.0 H, INR 3.0 07/24/17 04:00: Sodium 139, Potassium 3.8, Chloride 100, Carbon Dioxide 32.0, Anion Gap 7, BUN 21 H, Creatinine 1.59 H, Estim Creat Clear Calc 33.61, Est GFR (MDRD) Af Amer 55 L, Est GFR (MDRD) Non-Af 45 L, BUN/Creatinine Ratio 13.2, Glucose 148 H, Calcium 8.2 L 07/24/17 04:00: Magnesium 1.7 07/24/17 06:30: POC Glucose 141 H 07/24/17 08:02: POC Glucose 167 H 07/24/17 11:05: POC Glucose 201 H 07/24/17 16:04: POC Glucose 247 H Current Medications Acetaminophen (Tylenol) 650 mg PO Q6H PRN PRN Reason: MILD-MOD PAIN (-10/11) Albuterol/Ipratropium (Duoneb) 3 ml INHALATION Q4H.RT [facility] Last Admin: 07/24/17 15:47 Dose: 3 ml Amiodarone HCl (Cordarone) 400 mg PO DAILY [facility] Last Admin: 07/24/17 09:11 Dose: 400 mg Aspirin (Aspirin, Baby) 81 mg PO DAILY@0800 [facility] Last Admin: 07/24/17 09:11 Dose: 81 mg Chlorhexidine Gluconate () 1 each TOPICAL DAILY [facility] Last Admin: 07/24/17 03:57 Dose: 1 each Dextrose (D50w Syringe) 0 gm IV X1 PRN; Protocol PRN Reason: Hypoglycemia Furosemide (Lasix) 40 mg IV BID@1000,1800 [facility] Glucagon () 1 mg IM .X1 PRN PRN Reason: Hypoglycemia Guaifenesin (Mucinex) 600 mg PO BID [facility] Sodium Chloride () 250 mls @ 15 mls/hr IV .[id number] PRN PRN Reason: SALINE FLUSH Last Admin: 07/23/17 16:52 Dose: 15 mls/hr Piperacillin Sod/Tazobactam Sod (Zosyn) 3.375 gm in 50 mls @ 12.5 mls/hr IV Q8 [facility] Last Admin: 07/24/17 14:02 Dose: 12.5 mls/hr Sodium Chloride () 250 mls @ 15 mls/hr IV .[id number] PRN PRN Reason: SALINE FLUSH Insulin Aspart (Novolog Flexpen ([facility])) 0 units SC ACHS [facility] PRN Reason: Protocol Last Admin: 07/24/17 11:12 Dose: 2 u Insulin Detemir (Levemir ([facility])) 5 units SC BID [facility] Last Admin: 07/24/17 11:08 Dose: 10 u Magnesium Hydroxide (Milk Of Magnesia) 30 ml PO DAILY PRN PRN PRN Reason: Constipation Metoprolol Succinate (Toprol Xl (Beta Severo)) 12.5 mg PO BID [facility] Last Admin: 07/24/17 09:11 Dose: 12.5 mg Multivitamins (Multivitamin) 1 tablet PO DAILY@0800 [facility] Last Admin: 07/24/17 09:12 Dose: 1 tablet Ondansetron HCl (Zofran) 4 mg IV Q8H PRN PRN PRN Reason: NAUSEA Polyethylene Glycol (Miralax) 17 gm PO DAILY [facility] Last Admin: 07/24/17 09:12 Dose: 17 gm Polysaccharide Iron Complex (Ferrex 150) 150 mg PO DAILYCM [facility] Last Admin: 07/24/17 09:12 Dose: 150 mg Sodium Chloride () 5 - 30 ml IV UD PRN PRN Reason: SALINE FLUSH Last Admin: 07/24/17 03:58 Dose: 20 ml Warfarin Sodium (Coumadin (Pbkc)) 1 mg PO DAILY@1700 [facility] Last Admin: 07/23/17 16:53 Dose: 1 mg Assessment/Plan Active and Suspected Problems (Last Reviewed 05/17/17 @ 15:28 by Trice Bowling) Acute respiratory failure with hypercapnia (Acute) Heart failure with reduced ejection fraction (Acute) Metabolic encephalopathy (Acute) 1. Acute hypercapnic respiratory failure * [place] to be from my standpoint to be related with heart failure * Patient being treated for a possible pneumonia as well as heart failure. * Much improved at this time. Taken off of all oxygen and doing well. 2. Acute heart failure with reduced ejection fraction * Ejection fraction now down to 15-20% from 45-50% on 05/02/2017. * Patient has a LifeVest * Continue with IV Lasix until reach his dry weight and metoprolol succinate. 3. Status post aortic valve replacement * Patient did have a severe aortic stenosis prior to that. 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 4. Metabolic encephalopathy * Secondary to CO2 narcosis * Treatments the underlying process and evaluate. Hold sedating medications. * Resolved 5. Atrial fibrillation: * Patient is anticoagulated on Coumadin. * On amiodarone 6. DVT prophylaxis: Patient is anticoagulated. Transfer to the progressive care unit. Code Visit Inpatient E&M: [id number] Subs Hosp L2
[2017-07-24] MEDS: guaiFENesin 600 MG Tablet PO (16:53)
--- NOTE | 2017-07-24 17:23 | NURSING ---
report called to [facility] for transfer to room 120, pt on phone notifing of room number
[2017-07-24] MEDS: guaiFENesin 600 MG Tablet 1200 MG PO (21:36)
[2017-07-24 22:45] LABS: Bedside Glucose 169 mg/dL (70-110)
[2017-07-25] VITALS (18 sets, daily range): BP systolic 103–117; BP diastolic 51–68; PULSE 51–109; RESP 14–20; TEMP 36.7–37.1; O2SAT 92–96
[2017-07-25] MEDS: Ipratropium/Albuterol Sulfate 3 ML AMPUL.NEB INHALATION ×6 (03:09→22:43)
--- NOTE | 2017-07-25 03:11 | CPS ---
pt having trouble tolerating bipap, asked to sleep rest of night off of it.
[2017-07-25] MEDS: Piperacil/Tazobactam 3.375 GM/50 ML ML IV (05:37)
[2017-07-25 06:36] LABS: International Normalized Ratio 2.7; Prothrombin Time (Protime)PT. 27.5 SECONDS (11.7-14.9)
[2017-07-25 06:46] LABS: Anion Gap 7 (5-15); BUN 21 mg/dL (7-18); BUN/Creat Ratio 12.8 RATIO (10-20); Calcium,Total 8.4 mg/dL (8.5-10.1); Chloride 97 mmol/L (98-107); Creatinine, Serum 1.64 mg/dL (0.70-1.30); EST Glomerular Filtration Rate 44 mL/min (>60); Est Glom Filt Rate - Afr Amer 53 mL/min (>60); Estimated Creatinine Clearance 32.59 ml/min; Glucose 139 mg/dL (74-106); Potassium 3.1 mmol/L (3.5-5.1); Sodium Level 138 mmol/L (136-145)
[2017-07-25 07:01] LABS: Absolute Lymphocyte Count 1.23 X10^3/ul (0.83-4.51); Absolute Neutrophil Count 1.6 X10^3/uL (2.0-7.7); Basophil# 0.01 X10^3/uL; Basophil% 0.3 % (0-1); Eosinophil# 0.35 X10^3/uL; Hematocrit 27.9 % (40-54); Hemoglobin 8.7 g/dl (13.0-16.5); Lymphocyte # 1.23 X10^3/ul (4.0); Lymphocyte % 31.7 % (19-41); Mean Corp Hgb Conc 31.2 g/gl (32-36); Mean Corpuscular Volume 102.6 fL (80-94); Mean Platelet Vol. 9.9 fl (6.2-12.0); Monocyte# 0.65 X10^3/uL; Monocyte% 16.8 % (0-10); Neutrophil % 41.2 % (47-70); Platelet Count 195 K/mm3 (150-450); RBC Distribution Width CV 19.1 % (11.6-14.6); RBC Distribution Width SD 70.7 fl (35.1-43.9); Red Blood Count 2.72 M/mm3 (4.6-6.2); White Blood Count 3.9 K/mm3 (4.4-11.0)
[2017-07-25 07:02] LABS: Differential Indicated SCAN CRITERIA MET; POSITIVE COUNT NO; POSITIVE DIFFERENTIAL NO; POSITIVE MORPHOLOGY YES
[2017-07-25 07:03] LABS: Anisocytosis 1+; Differential Comment SCAN; Hypochromasia 1+; Microcytosis 1+
[2017-07-25 07:06] LABS: Bedside Glucose 132 mg/dL (70-110)
--- NOTE | 2017-07-25 08:29 | PN_ITS ---
Patient Problems: Active and Suspected Problems (Last Reviewed 05/17/17 @ 15:28 by Trice Bowling) Acute respiratory failure with hypercapnia (Acute) Heart failure with reduced ejection fraction (Acute) Metabolic encephalopathy (Acute) Subjective: Patient was seen and examined. He does not appear to be in any acute distress. Had an uneventful night. Remains hemodynamically stable, no fevers since last evening. Denies any shortness of breath except with exertion. Denies any chest pain, palpitations, or edema. Complains of persistent, dry cough. He is maintaining appropriate saturations on room air. Objective: Recent culture and lab data reviewed. Hemoglobin remained stable at 8.7. INR therapeutic at 2.7. Potassium is slightly low this morning at 3.1. Renal function stable with BUN 21 and creatinine 1.64. Blood cultures with no growth. Urine culture showed yeastlike organism, but colony count is low. Echocardiogram 07/23/17 with moderately dilated left ventricle, estimated EF of 15-20%, moderate to severe global hypokinesis of left ventricle, mild mitral valve stenosis, annuloplasty ring noted in the mitral position, mild TVI, RVSP estimated at 30 mmHg, bioprosthetic aortic valve, dilated inferior vena cava, moderate sized left pleural effusion, patient appeared to be in atrial fibrillation. LV function has deteriorated from 05/03/17 from 40% to 15% with addition of left pleural effusion. - Physical Exam General: Alert, Oriented x3, Cooperative, No apparent distress, - - [place]. No conversational dyspnea. Asking multiple questions repetitively. HEENT: Atraumatic, Normocephalic Oral: Moist Mucosa, No Gingival or Mucosal Lesions/ Ulcerations Neck: Supple, No JVD, No Nodes, Trachea Midline Lungs: Diminished, - - Symmetric expansion, no dullness to percussion. No appreciable rhonchi, wheezing, or rales Cardiovascular: Normal S1, Normal S2, Murmur, No rub noted, No Gallop, - - irregular rate and rhythm Abdomen: Bowel Sounds Present, Soft, Non Tender, Non-Distended Extremities: No clubbing, No cyanosis, No edema, Capillary Refill Less than 3 Seconds, No Calf Tenderness Skin: No rashes, No breakdown, - - UEs ecchymotic Musculoskeletal: No Tenderness to Palpation of Joints or Extremities Lymphatic: No Cervical, Supraclavicular, or Inguinal Adenopathy Neurological: Cranial nerves II-XII grossly intact, Neuro grossly intact, Motor Exam 5/5 strength throughout Psych/Mental Status: Alert and oriented to time, place, person, mood and affect Vital Signs Temp Pulse Resp BP Pulse Ox 98.1 F 83 18 108/68 92 07/25/17 02:59 07/25/17 07:11 07/25/17 03:09 07/25/17 02:59 07/25/17 02:59 Oxygen Flow Rate 2 Oxygen Delivery Method Room Air Weight: 170 lb 6.677 oz Body Mass Index (BMI) 29.5 Intake and Output for Last 24 Hours 07/23/17 07/24/17 07/25/17 23:59 23:59 23:59 Intake Total 558.6 / 558.6 1101.1 / 1101.1 305 / 305 Output Total 1800 / 1800 1675 / 1675 1700 / 1700 Balance -1241.4 / -1241.4 -573.9 / -573.9 -1395 / -1395 Laboratory Tests Past 24 Hrs 07/24/17 07/25/17 07/25/17 04:00 05:48 05:48 WBC 3.9 L RBC 2.72 L Hgb 8.7 L Hct 27.9 L MCV 102.6 H MCH 32.0 MCHC 31.2 L RDW 19.1 H RDW Differential 70.7 H Plt Count 195 MPV 9.9 Immature Gran % (Auto) 1.000 H Neut % (Auto) 41.2 L Lymph % (Auto) 31.7 [place] % (Auto) 16.8 H Eos % (Auto) 9.0 H Baso % (Auto) 0.3 Absolute Neuts (auto) 1.6 L Absolute Lymphs (auto) 1.23 Total Counted Not Reportable Differential Comment SCAN Hypochromasia 1+ Anisocytosis 1+ Microcytosis 1+ PT 27.5 H INR 2.7 Sodium Potassium Chloride Carbon Dioxide Anion Gap BUN Creatinine Estim Creat Clear Calc Est GFR (MDRD) Af Amer Est GFR (MDRD) Non-Af BUN/Creatinine Ratio Glucose Calcium Magnesium 1.7 07/25/17 05:48 WBC RBC Hgb Hct MCV MCH MCHC RDW RDW Differential Plt Count MPV Immature Gran % (Auto) Neut % (Auto) Lymph % (Auto) [place] % (Auto) Eos % (Auto) Baso % (Auto) Absolute Neuts (auto) Absolute Lymphs (auto) Total Counted Differential Comment Hypochromasia Anisocytosis Microcytosis PT INR Sodium 138 Potassium 3.1 L Chloride 97 L Carbon Dioxide 34.0 H Anion Gap 7 BUN 21 H Creatinine 1.64 H Estim Creat Clear Calc 32.59 Est GFR (MDRD) Af Amer 53 L Est GFR (MDRD) Non-Af 44 L BUN/Creatinine Ratio 12.8 Glucose 139 H Calcium 8.4 L Magnesium POC Glucose 07/25/17 07/24/17 07/24/17 06:53 21:39 16:04 POC Glucose 132 H 169 H 247 H 07/24/17 07/24/17 11:05 08:02 POC Glucose 201 H 167 H Assessment/Plan Active and Suspected Problems (Last Reviewed 05/17/17 @ 15:28 by Trice Bowling) Acute respiratory failure with hypercapnia (Acute) Heart failure with reduced ejection fraction (Acute) Metabolic encephalopathy (Acute) RECOMMENDATIONS: 1. Continue antibiotics pending culture data 2. Okay to continue with rate control medications if blood pressure allows 3. Continue daily Lasix 4. Possible thoracentesis if fluid accumulation worsens 5. Continue anticoagulation 6. Strict I&O 7. Replace electrolytes as indicated 8. Frequent reinforcement with education for CHF 9. Walking oximetry prior to discharge IMPRESSIONS: 1. Acute combined respiratory failure Exact etiology is unclear at this time. Patient does have extensive bilateral pulmonary infiltrates and an elevated BNP suggesting congestive heart failure. Patient with a severely depressed ejection fraction and left pleural effusion. Patient is responded very well to diuretic therapy. This would suggest a component of congestive heart failure. Patient spiked a fever 07/24, currently afebrile. Culture data with no significance. Patient is fully anticoagulated at this time. Patient is on appropriate antibiotics. Patient may benefit from a thoracentesis, but this would require reversing of anticoagulation in the setting of severely depressed cardiac function. Not recommended by cardiology at this time, will hold off on thoracentesis. Maintaining saturations on room air. Cumulative fluid balance -3210, 07/24/17 was -574. Patient should have a walking oximetry prior to discharge. 2. Probable acute on chronic systolic congestive heart failure/atrial fibrillation CAD/recent valve repair and replacement Patient's reports no history of atrial fibrillation, but electronic medical record describes history of cardioversion. Patient's rate control medication has been held secondary to blood pressure and patient has chemically cardioverted with amiodarone. Cardiology following, changed metoprolol to carvedilol given LV dysfunction. Patient is anticoagulated at this time with Coumadin therapy. Recheck INR on a daily basis given concomitant antibiotics and probable prolongation. Elevated cardiac enzymes likely secondary to demand ischemia. His echocardiogram will be repeated in a couple of months, hopefully with medication management and cardiac rehab, patient's function will improve. Electrolyte imbalance likely secondary to diuresis, replace as indicated. 3. Diabetes mellitus Patient is typically on Levemir therapy. Patient is currently tolerating a diet. Likely okay to increase Levemir therapy slightly. Does appear to have mild protein in the urine consistent with diabetic nephropathy. 4. Chronic kidney disease stage II Good urine output thus far. We will continue to monitor. Patient would be at increased risk for contrast nephropathy. 5. Insomnia/recent fall/advanced age Complicates care, management, recovery and prognosis. Patient is a full code as verified with patient's at the bedside. This note was generated with [employer] dictation software. It may contain incorrect words, spelling, and punctuation that were not noted in checking the note before signing.
[2017-07-25] MEDS: Iron Polysaccharide Complex 150 MG CAPSULE PO (09:08)
[2017-07-25] MEDS: Multivitamins,Therapeutic Tablet 1 TABLET PO (09:08)
[2017-07-25] MEDS: Amiodarone 200 MG Tablet 400 MG PO (09:08)
[2017-07-25] MEDS: Aspirin 81 MG TAB.CHEW PO (09:08)
[2017-07-25] MEDS: guaiFENesin 600 MG Tablet 1200 MG PO ×2 (09:09→21:19)
[2017-07-25] MEDS: Polyethylene Glycol 3350 17 GM PACKET PO (09:09)
[2017-07-25] MEDS: Metoprolol(XL)Succ 25 MG Tablet 12.5 MG PO (09:17)
[2017-07-25] MEDS: Furosemide 40 MG/4 ML Vial IV (09:18)
[2017-07-25 11:51] LABS: Bedside Glucose 243 mg/dL (70-110)
[2017-07-25] MEDS: Benzonatate 100 MG Capsule PO ×3 (11:55→21:16)
[2017-07-25] MEDS: Ondansetron 4 MG/2 ML Vial IV (12:02)
[2017-07-25] MEDS: 0.9% NaCl Peripheral Flush Adult/Peds IV (12:02)
--- NOTE | 2017-07-25 16:12 | PCM.PN.HOSP ---
Patient Problems: Active and Suspected Problems (Last Reviewed 05/17/17 @ 15:28 by Trice Bowling) Acute respiratory failure with hypercapnia (Acute) Heart failure with reduced ejection fraction (Acute) Metabolic encephalopathy (Acute) Subjective: Breathing well. No no complaints. Vitals/I&O's: Vital Signs Temp Pulse Resp BP Pulse Ox 37.0 C 51 L 17 117/64 93 07/25/17 15:50 07/25/17 15:50 07/25/17 15:50 07/25/17 15:50 07/25/17 15:50 Oxygen Flow Rate 2 Oxygen Delivery Method Room Air Weight: 77.3 kg Body Mass Index (BMI) 29.5 Intake and Output for Last 24 Hours 07/23/17 07/24/17 07/25/17 23:59 23:59 23:59 Intake Total 558.6 / 558.6 1101.1 / 1101.1 879 / 879 Output Total 1800 / 1800 1675 / 1675 2200 / 2200 Balance -1241.4 / -1241.4 -573.9 / -573.9 -1321 / -1321 General: Alert, Cooperative, No apparent distress HEENT: Atraumatic, Normocephalic Neck: No Nodes, Thyroid Normal Size and Texture Lungs: No wheeze, Diminished, - - bibasilar crackles. Cardiovascular: Regular rate, Regular Rhythm, Normal S1, Normal S2 Abdomen: Bowel Sounds Present, Soft, Non Tender, Non-Distended, No Hepato-splenomegaly Extremities: No Calf Tenderness, Edema - trace Skin: No rashes, No breakdown Psych/Mental Status: Normal Affect, Appropriate Laboratory Results 07/24/17 21:39: POC Glucose 169 H 07/25/17 05:48: WBC 3.9 L, RBC 2.72 L, Hgb 8.7 L, Hct 27.9 L, MCV 102.6 H, MCH 32.0, MCHC 31.2 L, RDW 19.1 H, RDW Differential 70.7 H, Plt Count 195, MPV 9.9, Immature Gran % (Auto) 1.000 H, Neut % (Auto) 41.2 L, Lymph % (Auto) 31.7, [place] % (Auto) 16.8 H, Eos % (Auto) 9.0 H, Baso % (Auto) 0.3, Absolute Neuts (auto) 1.6 L, Absolute Lymphs (auto) 1.23, Total Counted Not Reportable, Differential Comment SCAN, Hypochromasia 1+, Anisocytosis 1+, Microcytosis 1+ 07/25/17 05:48: PT 27.5 H, INR 2.7 07/25/17 05:48: Sodium 138, Potassium 3.1 L, Chloride 97 L, Carbon Dioxide 34.0 H, Anion Gap 7, BUN 21 H, Creatinine 1.64 H, Estim Creat Clear Calc 32.59, Est GFR (MDRD) Af Amer 53 L, Est GFR (MDRD) Non-Af 44 L, BUN/Creatinine Ratio 12.8, Glucose 139 H, Calcium 8.4 L 07/25/17 06:53: POC Glucose 132 H 07/25/17 11:49: POC Glucose 243 H Current Medications Acetaminophen (Tylenol) 650 mg PO Q6H PRN PRN Reason: MILD-MOD PAIN (1-10/11) Albuterol/Ipratropium (Duoneb) 3 ml INHALATION Q4H.RT [facility] Last Admin: 07/25/17 14:34 Dose: 3 ml Amiodarone HCl (Cordarone) 400 mg PO DAILY [facility] Last Admin: 07/25/17 09:08 Dose: 400 mg Aspirin (Aspirin, Baby) 81 mg PO DAILY@0800 [facility] Last Admin: 07/25/17 09:08 Dose: 81 mg Benzonatate (Tessalon Perle) 100 mg PO 4X/DAY PRN PRN PRN Reason: COUGH Last Admin: 07/25/17 16:03 Dose: 100 mg Chlorhexidine Gluconate () 1 each TOPICAL DAILY [facility] Last Admin: 07/25/17 09:19 Dose: Not Given Dextrose (D50w Syringe) 0 gm IV X1 PRN; Protocol PRN Reason: Hypoglycemia Furosemide (Lasix) 40 mg PO BID@1000,1800 [facility] Glucagon () 1 mg IM .X1 PRN PRN Reason: Hypoglycemia Guaifenesin (Mucinex) 1,200 mg PO BID [facility] Last Admin: 07/25/17 09:09 Dose: 1,200 mg Insulin Aspart (Novolog Flexpen (Bkc)) 0 units SC ACHS [facility] PRN Reason: Protocol Last Admin: 07/25/17 11:57 Dose: 3 u Insulin Detemir (Levemir (Bkc)) 5 units SC BID [facility] Last Admin: 07/25/17 09:18 Dose: 5 u Magnesium Hydroxide (Milk Of Magnesia) 30 ml PO DAILY PRN PRN PRN Reason: Constipation Metoprolol Succinate (Toprol Xl (Beta Severo)) 12.5 mg PO BID [facility] Last Admin: 07/25/17 09:17 Dose: 12.5 mg Multivitamins (Multivitamin) 1 tablet PO DAILY@0800 [facility] Last Admin: 07/25/17 09:08 Dose: 1 tablet Ondansetron HCl (Zofran) 4 mg IV Q8H PRN PRN PRN Reason: NAUSEA Last Admin: 07/25/17 12:02 Dose: 4 mg Polyethylene Glycol (Miralax) 17 gm PO DAILY [facility] Last Admin: 07/25/17 09:09 Dose: 17 gm Polysaccharide Iron Complex (Ferrex 150) 150 mg PO DAILYCM [facility] Last Admin: 07/25/17 09:08 Dose: 150 mg Sodium Chloride () 5 - 30 ml IV UD PRN PRN Reason: SALINE FLUSH Last Admin: 07/25/17 12:02 Dose: 10 ml Spironolactone (Aldactone) 12.5 mg PO DAILY [facility] Warfarin Sodium (Coumadin (Pbkc)) 1 mg PO DAILY@1700 [facility] Last Admin: 07/24/17 17:16 Dose: 1 mg Assessment/Plan Active and Suspected Problems (Last Reviewed 05/17/17 @ 15:28 by Trice Bowling) Acute respiratory failure with hypercapnia (Acute) Heart failure with reduced ejection fraction (Acute) Metabolic encephalopathy (Acute) 1. Acute hypercapnic respiratory failure [place] to be from my standpoint to be related with heart failure Patient being treated for a possible pneumonia as well as heart failure. Much improved at this time. Taken off of all oxygen and doing well. 2. Acute heart failure with reduced ejection fraction Ejection fraction now down to 15-20% from 45-50% on 05/02/2017. Patient has a LifeVest Change lasix to PO given worsening kidney function. 3. Status post aortic valve replacement Patient did have a severe aortic stenosis prior to that. 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 4. Metabolic encephalopathy Secondary to CO2 narcosis Treatments the underlying process and evaluate. Hold sedating medications. Resolved 5. Atrial fibrillation: Patient is anticoagulated on Coumadin. On amiodarone 6. DVT prophylaxis: Patient is anticoagulated. 7. [facility] Suspect prerenal due to overdiuresis Follow up in am lasix changed over to PO. 8. Disposition to SNF if CHRI[facility] improves and barring any setbacks. DW patient's at bedside. Code Visit Inpatient E&M: 74928 Subs Hosp L2
--- NOTE | 2017-07-25 16:16 | PN_ITS ---
Patient Problems: Active and Suspected Problems (Last Reviewed 05/17/17 @ 15:28 by Trice Bowling) Acute respiratory failure with hypercapnia (Acute) Heart failure with reduced ejection fraction (Acute) Metabolic encephalopathy (Acute) Subjective: Breathing well. No no complaints. Vitals/I&O's: Vital Signs Temp Pulse Resp BP Pulse Ox 37.0 C 51 L 17 117/64 93 07/25/17 15:50 07/25/17 15:50 07/25/17 15:50 07/25/17 15:50 07/25/17 15:50 Oxygen Flow Rate 2 Oxygen Delivery Method Room Air Weight: 77.3 kg Body Mass Index (BMI) 29.5 Intake and Output for Last 24 Hours 07/23/17 07/24/17 07/25/17 23:59 23:59 23:59 Intake Total 558.6 / 558.6 1101.1 / 1101.1 879 / 879 Output Total 1800 / 1800 1675 / 1675 2200 / 2200 Balance -1241.4 / -1241.4 -573.9 / -573.9 -1321 / -1321 General: Alert, Cooperative, No apparent distress HEENT: Atraumatic, Normocephalic Neck: No Nodes, Thyroid Normal Size and Texture Lungs: No wheeze, Diminished, - - bibasilar crackles. Cardiovascular: Regular rate, Regular Rhythm, Normal S1, Normal S2 Abdomen: Bowel Sounds Present, Soft, Non Tender, Non-Distended, No Hepato- splenomegaly Extremities: No Calf Tenderness, Edema - trace Skin: No rashes, No breakdown Psych/Mental Status: Normal Affect, Appropriate Laboratory Results 07/24/17 21:39: POC Glucose 169 H 07/25/17 05:48: WBC 3.9 L, RBC 2.72 L, Hgb 8.7 L, Hct 27.9 L, MCV 102.6 H, MCH 32.0, MCHC 31.2 L, RDW 19.1 H, RDW Differential 70.7 H, Plt Count 195, MPV 9.9, Immature Gran % (Auto) 1.000 H, Neut % (Auto) 41.2 L, Lymph % (Auto) 31.7, [place] % (Auto) 16.8 H, Eos % (Auto) 9.0 H, Baso % (Auto) 0.3, Absolute Neuts (auto) 1.6 L, Absolute Lymphs (auto) 1.23, Total Counted Not Reportable, Differential Comment SCAN, Hypochromasia 1+, Anisocytosis 1+, Microcytosis 1+ 07/25/17 05:48: PT 27.5 H, INR 2.7 07/25/17 05:48: Sodium 138, Potassium 3.1 L, Chloride 97 L, Carbon Dioxide 34.0 H, Anion Gap 7, BUN 21 H, Creatinine 1.64 H, Estim Creat Clear Calc 32.59, Est GFR (MDRD) Af Amer 53 L, Est GFR (MDRD) Non-Af 44 L, BUN/Creatinine Ratio 12.8, Glucose 139 H, Calcium 8.4 L 07/25/17 06:53: POC Glucose 132 H 07/25/17 11:49: POC Glucose 243 H Current Medications Acetaminophen (Tylenol) 650 mg PO Q6H PRN PRN Reason: MILD-MOD PAIN (1-10/11) Albuterol/Ipratropium (Duoneb) 3 ml INHALATION Q4H.RT [facility] Last Admin: 07/25/17 14:34 Dose: 3 ml Amiodarone HCl (Cordarone) 400 mg PO DAILY [facility] Last Admin: 07/25/17 09:08 Dose: 400 mg Aspirin (Aspirin, Baby) 81 mg PO DAILY@0800 [facility] Last Admin: 07/25/17 09:08 Dose: 81 mg Benzonatate (Tessalon Perle) 100 mg PO 4X/DAY PRN PRN PRN Reason: COUGH Last Admin: 07/25/17 16:03 Dose: 100 mg Chlorhexidine Gluconate () 1 each TOPICAL DAILY [facility] Last Admin: 07/25/17 09:19 Dose: Not Given Dextrose (D50w Syringe) 0 gm IV X1 PRN; Protocol PRN Reason: Hypoglycemia Furosemide (Lasix) 40 mg PO BID@1000,1800 [facility] Glucagon () 1 mg IM .X1 PRN PRN Reason: Hypoglycemia Guaifenesin (Mucinex) 1,200 mg PO BID [facility] Last Admin: 07/25/17 09:09 Dose: 1,200 mg Insulin Aspart (Novolog Flexpen (Bkc)) 0 units SC ACHS [facility] PRN Reason: Protocol Last Admin: 07/25/17 11:57 Dose: 3 u Insulin Detemir (Levemir (Bkc)) 5 units SC BID [facility] Last Admin: 07/25/17 09:18 Dose: 5 u Magnesium Hydroxide (Milk Of Magnesia) 30 ml PO DAILY PRN PRN PRN Reason: Constipation Metoprolol Succinate (Toprol Xl (Beta Severo)) 12.5 mg PO BID [facility] Last Admin: 07/25/17 09:17 Dose: 12.5 mg Multivitamins (Multivitamin) 1 tablet PO DAILY@0800 [facility] Last Admin: 07/25/17 09:08 Dose: 1 tablet Ondansetron HCl (Zofran) 4 mg IV Q8H PRN PRN PRN Reason: NAUSEA Last Admin: 07/25/17 12:02 Dose: 4 mg Polyethylene Glycol (Miralax) 17 gm PO DAILY [facility] Last Admin: 07/25/17 09:09 Dose: 17 gm Polysaccharide Iron Complex (Ferrex 150) 150 mg PO DAILYCM [facility] Last Admin: 07/25/17 09:08 Dose: 150 mg Sodium Chloride () 5 - 30 ml IV UD PRN PRN Reason: SALINE FLUSH Last Admin: 07/25/17 12:02 Dose: 10 ml Spironolactone (Aldactone) 12.5 mg PO DAILY [facility] Warfarin Sodium (Coumadin (Pbkc)) 1 mg PO DAILY@1700 [facility] Last Admin: 07/24/17 17:16 Dose: 1 mg Assessment/Plan Active and Suspected Problems (Last Reviewed 05/17/17 @ 15:28 by Trice Bowling) Acute respiratory failure with hypercapnia (Acute) Heart failure with reduced ejection fraction (Acute) Metabolic encephalopathy (Acute) 1. Acute hypercapnic respiratory failure * [place] to be from my standpoint to be related with heart failure * Patient being treated for a possible pneumonia as well as heart failure. * Much improved at this time. Taken off of all oxygen and doing well. 2. Acute heart failure with reduced ejection fraction * Ejection fraction now down to 15-20% from 45-50% on 05/02/2017. * Patient has a LifeVest * Change lasix to PO given worsening kidney function. 3. Status post aortic valve replacement * Patient did have a severe aortic stenosis prior to that. 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 4. Metabolic encephalopathy * Secondary to CO2 narcosis * Treatments the underlying process and evaluate. Hold sedating medications. * Resolved 5. Atrial fibrillation: * Patient is anticoagulated on Coumadin. * On amiodarone 6. DVT prophylaxis: Patient is anticoagulated. 7. [facility] * Suspect prerenal due to overdiuresis * Follow up in am * lasix changed over to PO. 8. Disposition * to SNF if CHRIST improves and barring any setbacks. DW patient's at bedside. Code Visit Inpatient E&M: [id number] Subs Hosp L2
[2017-07-25 17:31] LABS: Bedside Glucose 155 mg/dL (70-110)
[2017-07-25] MEDS: Furosemide 40 MG Tablet PO (17:51)
--- NOTE | 2017-07-25 23:34 | EKG12_ITS ---
Test Reason : IRREG HR Blood Pressure : / mmHG Vent. Rate : 092 BPM Atrial Rate : 357 BPM P-R Int : 000 ms QRS Dur : 126 ms QT Int : 396 ms P-R-T Axes : 000 -34 118 degrees QTc Int : 489 ms Atypical atrial flutter Left axis deviation Left ventricular hypertrophy with QRS widening T wave abnormality, consider lateral ischemia Abnormal ECG When compared with ECG of 23-JUL-2017 06:58, MANUAL COMPARISON REQUIRED, DATA IS UNCONFIRMED Confirmed by HALI PHILLIPS ([id number]), editorial cartoonist CHEPE MEADE ([id number]) on 07/31/2017 2:19:36 PM Referred By: DR TORRES Confirmed By:HALI PHILLIPS
[2017-07-25 23:36] LABS: Bedside Glucose 254 mg/dL (70-110)
[2017-07-26] VITALS (18 sets, daily range): BP systolic 104–132; BP diastolic 57–72; PULSE 53–107; RESP 16–22; TEMP 36.4–36.9; O2SAT 90–94
[2017-07-26] MEDS: Ipratropium/Albuterol Sulfate 3 ML AMPUL.NEB INHALATION ×6 (02:35→23:25)
[2017-07-26] MEDS: Benzonatate 100 MG Capsule PO ×2 (03:28→17:34)
[2017-07-26 06:33] LABS: Anion Gap 7 (5-15); BUN 18 mg/dL (7-18); BUN/Creat Ratio 12.2 RATIO (10-20); Calcium,Total 8.3 mg/dL (8.5-10.1); Chloride 97 mmol/L (98-107); Creatinine, Serum 1.48 mg/dL (0.70-1.30); EST Glomerular Filtration Rate 49 mL/min (>60); Est Glom Filt Rate - Afr Amer 60 mL/min (>60); Estimated Creatinine Clearance 36.11 ml/min; Glucose 108 mg/dL (74-106); Potassium 2.8 mmol/L (3.5-5.1); Sodium Level 140 mmol/L (136-145)
[2017-07-26 06:38] LABS: Absolute Lymphocyte Count 1.42 X10^3/ul (0.83-4.51); Absolute Neutrophil Count 1.4 X10^3/uL (2.0-7.7); Basophil# 0.01 X10^3/uL; Basophil% 0.3 % (0-1); Eosinophil# 0.37 X10^3/uL; Eosinophils% 9.5 % (0-5); Hematocrit 29.5 % (40-54); Hemoglobin 9.1 g/dl (13.0-16.5); Lymphocyte # 1.42 X10^3/ul (4.0); Lymphocyte % 36.3 % (19-41); Mean Corp Hgb Conc 30.8 g/gl (32-36); Mean Corpuscular Hgb 31.9 pg (27.0-32.0); Mean Corpuscular Volume 103.5 fL (80-94); Mean Platelet Vol. 9.6 fl (6.2-12.0); Monocyte% 17.9 % (0-10); Neutrophil # 1.37 X10^3/uL (2.7-7.7); Platelet Count 192 K/mm3 (150-450); RBC Distribution Width CV 18.7 % (11.6-14.6); RBC Distribution Width SD 70.3 fl (35.1-43.9); Red Blood Count 2.85 M/mm3 (4.6-6.2); White Blood Count 3.9 K/mm3 (4.4-11.0)
[2017-07-26 06:39] LABS: Differential Indicated SCAN CRITERIA MET; POSITIVE COUNT NO; POSITIVE DIFFERENTIAL NO; POSITIVE MORPHOLOGY YES
[2017-07-26 06:50] LABS: Differential Comment SCANNED
[2017-07-26 06:51] LABS: Anisocytosis 3+
[2017-07-26 06:53] LABS: Macrocytosis 2+
[2017-07-26 06:55] LABS: Bedside Glucose 119 mg/dL (70-110)
[2017-07-26] MEDS: Furosemide 40 MG Tablet PO ×2 (09:00→17:29)
[2017-07-26] MEDS: Polyethylene Glycol 3350 17 GM PACKET PO (09:00)
[2017-07-26] MEDS: Amiodarone 200 MG Tablet 400 MG PO (09:00)
[2017-07-26] MEDS: Aspirin 81 MG TAB.CHEW PO (09:01)
[2017-07-26] MEDS: Spironolactone 25 MG Tablet 12.5 MG PO (09:01)
[2017-07-26] MEDS: Metoprolol(XL)Succ 25 MG Tablet 12.5 MG PO (09:02)
[2017-07-26] MEDS: Iron Polysaccharide Complex 150 MG CAPSULE PO (09:02)
[2017-07-26] MEDS: guaiFENesin 1,200 MG Tablet 1200 MG PO ×2 (09:03→21:08)
[2017-07-26] MEDS: Multivitamins,Therapeutic Tablet 1 TABLET PO (09:03)
--- NOTE | 2017-07-26 09:36 | PN_ITS ---
Patient Problems: Active and Suspected Problems (Last Reviewed 05/17/17 @ 15:28 by Trice Bowling) Acute respiratory failure with hypercapnia (Acute) Heart failure with reduced ejection fraction (Acute) Metabolic encephalopathy (Acute) Subjective: The patient was seen and examined. He denies any shortness of breath, chest pain, or sputum production. He does complain of a persistent and frequent cough that kept him up last night. He was given some Tessalon Perles which help typically less than an hour. He is awaiting transfer to the transitional care unit pending insurance approval. Objective: Recent lab work reviewed, potassium is low at 2.8. Renal function has improved. Patient was transitioned yesterday to oral Lasix. Cumulative fluid balance -3391, yesterday fluid balance of -1400. Weight down 10 pounds from admission. Remains hemodynamically stable and afebrile, maintaining saturations on room air. - Physical Exam General: Alert, Oriented x3, Cooperative, No apparent distress, - - No conversational dyspnea HEENT: Atraumatic, Normocephalic Oral: Moist Mucosa, No Gingival or Mucosal Lesions/ Ulcerations Neck: Supple, No Nodes, Trachea Midline Lungs: - - Diminished throughout, poor inspiratory effort. No appreciable adventitious lung sounds. Cardiovascular: Normal S1, Normal S2, Murmur, - - Irregular rate and rhythm Abdomen: Bowel Sounds Present, Soft, Non Tender, Obese Extremities: No clubbing, No cyanosis, No edema, Capillary Refill Less than 3 Seconds Skin: - - Unchanged from previous exam Musculoskeletal: No Tenderness to Palpation of Joints or Extremities Lymphatic: No Cervical, Supraclavicular, or Inguinal Adenopathy Neurological: Cranial nerves II-XII grossly intact, Neuro grossly intact, Motor Exam 5/5 strength throughout Psych/Mental Status: Alert and oriented to time, place, person, mood and affect Vital Signs Temp Pulse Resp BP Pulse Ox 98.4 F 93 18 104/67 94 07/26/17 08:49 07/26/17 09:02 07/26/17 08:49 07/26/17 08:49 07/26/17 08:49 Oxygen Flow Rate 2 Oxygen Delivery Method Room Air Weight: 168 lb 13.985 oz Body Mass Index (BMI) 29.5 Intake and Output for Last 24 Hours 07/24/17 07/25/17 07/26/17 23:59 23:59 23:59 Intake Total 1101.1 / 1101.1 1329 / 1329 520 / 520 Output Total 1675 / 1675 2725 / 2725 700 / 700 Balance -573.9 / -573.9 -1396 / -1396 -180 / -180 Laboratory Tests Past 24 Hrs 07/26/17 07/26/17 05:35 05:35 WBC 3.9 L RBC 2.85 L Hgb 9.1 L Hct 29.5 L MCV 103.5 H MCH 31.9 MCHC 30.8 L RDW 18.7 H RDW Differential 70.3 H Plt Count 192 MPV 9.6 Immature Gran % (Auto) 1.000 H Neut % (Auto) 35.0 L Lymph % (Auto) 36.3 [place] % (Auto) 17.9 H Eos % (Auto) 9.5 H Baso % (Auto) 0.3 Absolute Neuts (auto) 1.4 L Absolute Lymphs (auto) 1.42 Total Counted Not Reportable Differential Comment SCANNED Anisocytosis 3+ Macrocytosis 2+ Sodium 140 Potassium 2.8 L Chloride 97 L Carbon Dioxide 36.0 H Anion Gap 7 BUN 18 Creatinine 1.48 H Estim Creat Clear Calc 36.11 Est GFR (MDRD) Af Amer 60 Est GFR (MDRD) Non-Af 49 L BUN/Creatinine Ratio 12.2 Glucose 108 H Calcium 8.3 L POC Glucose 07/26/17 07/25/17 07/25/17 06:47 21:15 17:28 POC Glucose 119 H 254 H 155 H 07/25/17 11:49 POC Glucose 243 H Assessment/Plan Active and Suspected Problems (Last Reviewed 05/17/17 @ 15:28 by Trice Bowling) Acute respiratory failure with hypercapnia (Acute) Heart failure with reduced ejection fraction (Acute) Metabolic encephalopathy (Acute) RECOMMENDATIONS: 1. Okay to continue with rate control medications if blood pressure allows 2. Continue diuresis and anticoagulation 3. Strict I&O 4. Replace electrolytes as indicated 5. Frequent reinforcement of education for CHF 6. Walking oximetry prior to discharge 7. 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 Acute combined respiratory failure Exact etiology is unclear at this time. Patient does have extensive bilateral pulmonary infiltrates and an elevated BNP suggesting congestive heart failure. Patient with a severely depressed ejection fraction and left pleural effusion. Patient is responded very well to diuretic therapy. This would suggest a component of congestive heart failure. No further temperatures. Culture data with no significance. Patient is fully anticoagulated at this time. Patient is on appropriate antibiotics. Patient may benefit from a thoracentesis, but this would require reversing of anticoagulation in the setting of severely depressed cardiac function. Not recommended by cardiology at this time, will hold off on thoracentesis. Maintaining saturations on room air. Cumulative fluid balance -3391. Patient should have a walking oximetry prior to discharge. 2. Probable acute on chronic systolic congestive heart failure/atrial fibrillation CAD/recent valve repair and replacement Patient's reports no history of atrial fibrillation, but electronic medical record describes history of cardioversion. Patient's rate control medication has been held secondary to blood pressure and patient has chemically cardioverted with amiodarone. Cardiology following, changed metoprolol to carvedilol given LV dysfunction. Patient is anticoagulated at this time with Coumadin therapy. Recheck INR on a daily basis given concomitant antibiotics and probable prolongation. Elevated cardiac enzymes likely secondary to demand ischemia. His echocardiogram will be repeated in a couple of months, hopefully with medication management and cardiac rehab, patient's function will improve. Electrolyte imbalance likely secondary to diuresis, replace as indicated. Complains of persistent cough, not on DIMAS. Robitussin ordered, especially for at night since patient unable to sleep. 3. Diabetes mellitus Patient is typically on Levemir therapy. Patient is currently tolerating a diet. Likely okay to increase Levemir therapy slightly. Does appear to have mild protein in the urine consistent with diabetic nephropathy. 4. Chronic kidney disease stage II Good urine output thus far. We will continue to monitor. Patient would be at increased risk for contrast nephropathy. 5. Insomnia/recent fall/advanced age Complicates care, management, recovery and prognosis. Patient is a full code as verified with patient's at the bedside. This note was generated with opendorseation software. It may contain incorrect words, spelling, and punctuation that were not noted in checking the note before signing.
[2017-07-26 11:01] LABS: Bedside Glucose 140 mg/dL (70-110)
--- NOTE | 2017-07-26 11:21 | PN.CARD_ITS ---
Subjectve: Patient continues to improve, no 24 hour events. Telemetry shows an atypical flutter with 2-1 conduction, no chest pain symptoms. Objective: Vital Signs Temp Pulse Resp BP Pulse Ox 98.4 F 73 20 H 104/67 94 07/26/17 08:49 07/26/17 10:44 07/26/17 10:44 07/26/17 08:49 07/26/17 08:49 Oxygen Flow Rate 2 Oxygen Delivery Method Room Air Weight: 168 lb 13.985 oz Body Mass Index (BMI) 29.5 Intake and Output for Last 24 Hours 07/24/17 07/25/17 07/26/17 23:59 23:59 23:59 Intake Total 1101.1 / 1101.1 1329 / 1329 520 / 520 Output Total 1675 / 1675 2725 / 2725 700 / 700 Balance -573.9 / -573.9 -1396 / -1396 -180 / -180 General: Awake, Alert, Oriented x 3 HEENT: PERRL, EOMI, Sclera Non Icteric Neck: Supple, Good ROM, No Lymph Node Enlargement Lungs: Clear to auscultation Cardiovascular: Irregular Rhythm, Normal S1, Normal S2, No Rubs, No Gallops Murmur Murmur: Grade 2/6, Crescendo-Decrescendo Vascular: No Carotid Bruits, Normal Femoral Pulses, Normal Radial Pulses, Normal Dorsalis Pedal Pulse, Normal Posterior Tibial Pulses Abdomen: Bowel Sounds Present, Soft, Non Tender, No HSM, No Organomegaly Extremities: No Cyanosis, No Clubbing, No edema Neurological: No Focal Motor or Sensory Deficit 07/26/17 05:35: WBC 3.9 L, RBC 2.85 L, Hgb 9.1 L, Hct 29.5 L, MCV 103.5 H, MCH 31.9, MCHC 30.8 L, RDW 18.7 H, RDW Differential 70.3 H, Plt Count 192, MPV 9.6, Immature Gran % (Auto) 1.000 H, Neut % (Auto) 35.0 L, Lymph % (Auto) 36.3, [place] % (Auto) 17.9 H, Eos % (Auto) 9.5 H, Baso % (Auto) 0.3, Absolute Neuts (auto) 1.4 L, Total Counted Not Reportable 07/26/17 05:35: Sodium 140, Potassium 2.8 L, Chloride 97 L, Carbon Dioxide 36.0 H, Anion Gap 7, BUN 18, Creatinine 1.48 H, Est GFR (MDRD) Af Amer 60, Est GFR ( MDRD) Non-Af 49 L, BUN/Creatinine Ratio 12.2, Glucose 108 H, Calcium 8.3 L Rhythm: EKG: ECHO: Stress Test: Cardiac Cath: PCI: CT Surgery: Holter monitor: EPS: PPM: CXR: Chest CT Scan: Assessment/Plan 1. LV dysfunction: The patient has had acute deterioration of his LV function after his aortic valve replacement and mitral valve repair, and presented with congestive heart failure with bilateral pleural effusions, shortness of breath, and lower extremity edema. I recommend gentle diuresis given his chronic renal insufficiency with Lasix 40 mg IV twice daily and attempt to diurese a proximally 1-1.5 L net negative per day. I would not recommend thoracentesis at this time as his chest x-ray does not appear to have significant pleural effusion to justify reversing his Coumadin at this time. Given the patient's LV dysfunction he will require lifelong anticoagulation to avoid LV thrombus formation. Given his normal coronary arteries preoperatively and lack of anginal symptoms postoperatively, I would not recommend repeat catheterization at this time. Patient was transitioned from IV to p.o. Lasix yesterday. Continue Lasix 40 mg p.o. twice daily. Once the patient's hemoglobin has normalized, he has gone through cardiac rehab , we will can reconsider reechoing him to determine if his LV function has improved. In the meantime I would discontinue his in addition when she is reached his dry weight, we can switch him from metoprolol to Coreg which would be more appropriate given his LV dysfunction. We will start Coreg 3.125 mg p.o. twice daily. In the meantime we will continue with a 1500 cc fluid restriction. Please max concentrate all IV drips. 2. Atrial fibrillation/atrial flutter: Continue amiodarone 200 mg p.o. daily. He currently appears to be an ectopic atrial rhythm versus normal sinus rhythm with first-degree AV block. Continue anticoagulation. Once the patient has been loaded with amiodarone for 3 consecutive weeks and his INR is above 2.0 for 4 consecutive weeks, we will proceed with DC cardioversion. Patient appears to have an atypical atrial flutter, which may chemically convert with diuresis, beta-poornima, and amiodarone therapy. 3. Discussed with Dr. Mckeon. Thank you very much for the opportunity to precipitate in the cardiac care of your patient. Would recommend evaluation for transfer patient back to inpatient rehab. Code Visit Inpatient E&M: 96990 Subs Hosp L2
[2017-07-26] MEDS: guaiFENesin/Codeine 5 ML UDC PO ×2 (15:54→23:04)
[2017-07-26 16:07] LABS: Bedside Glucose 177 mg/dL (70-110)
--- NOTE | 2017-07-26 17:26 | PCM.PN.HOSP ---
Patient Problems: Active and Suspected Problems (Last Reviewed 05/17/17 @ 15:28 by Trice Bowling) Acute respiratory failure with hypercapnia (Acute) Heart failure with reduced ejection fraction (Acute) Metabolic encephalopathy (Acute) Subjective: feeling good. no complaints. Vitals/I&O's: Vital Signs Temp Pulse Resp BP Pulse Ox 36.4 C L 97 18 132/72 H 94 07/26/17 15:05 07/26/17 15:27 07/26/17 15:05 07/26/17 15:05 07/26/17 15:05 Oxygen Flow Rate 2 Oxygen Delivery Method Room Air Weight: 76.6 kg Body Mass Index (BMI) 29.5 Intake and Output for Last 24 Hours 07/24/17 07/25/17 07/26/17 23:59 23:59 23:59 Intake Total 1101.1 / 1101.1 1329 / 1329 970 / 970 Output Total 1675 / 1675 2725 / 2725 975 / 975 Balance -573.9 / -573.9 -1396 / -1396 -5 / -5 General: Alert, Cooperative, No apparent distress, - - up in the halls working with PT HEENT: Atraumatic, Normocephalic Neck: No Nodes, Thyroid Normal Size and Texture Lungs: Normal air movement, No wheeze, - - bibasilar crackles. Cardiovascular: Regular rate, Regular Rhythm, Normal S1, Normal S2, No murmurs Abdomen: Bowel Sounds Present, Soft, Non Tender, Non-Distended Extremities: Edema - trace Skin: No rashes, No breakdown Psych/Mental Status: Normal Affect, Appropriate Laboratory Results 07/25/17 17:28: POC Glucose 155 H 07/25/17 21:15: POC Glucose 254 H 07/26/17 05:35: WBC 3.9 L, RBC 2.85 L, Hgb 9.1 L, Hct 29.5 L, MCV 103.5 H, MCH 31.9, MCHC 30.8 L, RDW 18.7 H, RDW Differential 70.3 H, Plt Count 192, MPV 9.6, Immature Gran % (Auto) 1.000 H, Neut % (Auto) 35.0 L, Lymph % (Auto) 36.3, [place] % (Auto) 17.9 H, Eos % (Auto) 9.5 H, Baso % (Auto) 0.3, Absolute Neuts (auto) 1.4 L, Absolute Lymphs (auto) 1.42, Total Counted Not Reportable, Differential Comment SCANNED, Anisocytosis 3+, Macrocytosis 2+ 07/26/17 05:35: Sodium 140, Potassium 2.8 L, Chloride 97 L, Carbon Dioxide 36.0 H, Anion Gap 7, BUN 18, Creatinine 1.48 H, Estim Creat Clear Calc 36.11, Est GFR (MDRD) Af Amer 60, Est GFR (MDRD) Non-Af 49 L, BUN/Creatinine Ratio 12.2, Glucose 108 H, Calcium 8.3 L 07/26/17 06:47: POC Glucose 119 H 07/26/17 10:56: POC Glucose 140 H 07/26/17 15:59: POC Glucose 177 H Current Medications Acetaminophen (Tylenol) 650 mg PO Q6H PRN PRN Reason: MILD-MOD PAIN (1-10/11) Albuterol/Ipratropium (Duoneb) 3 ml INHALATION Q4H.RT [facility] Last Admin: 07/26/17 14:43 Dose: 3 ml Amiodarone HCl (Cordarone) 200 mg PO DAILY [facility] Aspirin (Aspirin, Baby) 81 mg PO DAILY@0800 [facility] Last Admin: 07/26/17 09:01 Dose: 81 mg Benzonatate (Tessalon Perle) 100 mg PO 4X/DAY PRN PRN PRN Reason: COUGH Last Admin: 07/26/17 03:28 Dose: 100 mg Carvedilol (Coreg) 3.125 mg PO BID [facility] Chlorhexidine Gluconate () 1 each TOPICAL DAILY [facility] Last Admin: 07/26/17 08:54 Dose: Not Given Dextrose (D50w Syringe) 0 gm IV X1 PRN; Protocol PRN Reason: Hypoglycemia Furosemide (Lasix) 40 mg PO BID@1000,1800 [facility] Last Admin: 07/26/17 09:00 Dose: 40 mg Glucagon () 1 mg IM .X1 PRN PRN Reason: Hypoglycemia Guaifenesin (Mucinex) 1,200 mg PO BID [facility] Last Admin: 07/26/17 09:03 Dose: 1,200 mg Guaifenesin/Codeine Phosphate (Robitussin Ac) 5 - 10 ml PO Q6H PRN PRN PRN Reason: COUGH Last Admin: 07/26/17 15:54 Dose: 10 ml Insulin Aspart (Novolog Flexpen ([facility])) 0 units SC ACHS [facility] PRN Reason: Protocol Last Admin: 07/26/17 10:58 Dose: Not Given Insulin Detemir (Levemir ([facility])) 5 units SC BID [facility] Last Admin: 07/26/17 09:06 Dose: 5 u Magnesium Hydroxide (Milk Of Magnesia) 30 ml PO DAILY PRN PRN PRN Reason: Constipation Multivitamins (Multivitamin) 1 tablet PO DAILY@0800 [facility] Last Admin: 07/26/17 09:03 Dose: 1 tablet Ondansetron HCl (Zofran) 4 mg IV Q8H PRN PRN PRN Reason: NAUSEA Last Admin: 07/25/17 12:02 Dose: 4 mg Polyethylene Glycol (Miralax) 17 gm PO DAILY [facility] Last Admin: 07/26/17 09:00 Dose: 17 gm [facility]accharide [facility] Admin: 07/26/17 09:02 Dose: 150 mg Sodium Chloride () 5 - 30 ml IV UD PRN PRN Reason: SALINE FLUSH Last Admin: 07/25/17 12:02 Dose: 10 ml Spironolactone (Aldactone) 12.5 mg PO DAILY [facility] Last Admin: 07/26/17 09:01 Dose: 12.5 mg Warfarin Sodium (Coumadin (Pbkc)) 1 mg PO DAILY@1700 [facility] Last Admin: 07/26/17 15:56 Dose: 1 mg Assessment/Plan Active and Suspected Problems (Last Reviewed 05/17/17 @ 15:28 by Trice Bowling) Acute respiratory failure with hypercapnia (Acute) Heart failure with reduced ejection fraction (Acute) Metabolic encephalopathy (Acute) 1. Acute hypercapnic respiratory failure [place] to be from my standpoint to be related with heart failure Patient being treated for a possible pneumonia as well as heart failure. Much improved at this time. Taken off of all oxygen and doing well. 2. Acute heart failure with reduced ejection fraction Ejection fraction now down to 15-20% from 45-50% on 05/02/2017. Patient has a LifeVest Change lasix to PO given worsening kidney function. 3. Status post aortic valve replacement Patient did have a severe aortic stenosis prior to that. 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 4. Metabolic encephalopathy Secondary to CO2 narcosis Treatments the underlying process and evaluate. Hold sedating medications. Resolved 5. Atrial fibrillation: Patient is anticoagulated on Coumadin. On amiodarone 6. DVT prophylaxis: Patient is anticoagulated. 7. CHRIST Suspect prerenal due to overdiuresis Follow up in am lasix changed over to PO. improved today. 8. Disposition pending precertification, not back today. Code Visit Inpatient E&M: 73951 Subs Hosp L2
--- NOTE | 2017-07-26 17:29 | PN_ITS ---
Patient Problems: Active and Suspected Problems (Last Reviewed 05/17/17 @ 15:28 by Trice Bowling) Acute respiratory failure with hypercapnia (Acute) Heart failure with reduced ejection fraction (Acute) Metabolic encephalopathy (Acute) Subjective: feeling good. no complaints. Vitals/I&O's: Vital Signs Temp Pulse Resp BP Pulse Ox 36.4 C L 97 18 132/72 H 94 07/26/17 15:05 07/26/17 15:27 07/26/17 15:05 07/26/17 15:05 07/26/17 15:05 Oxygen Flow Rate 2 Oxygen Delivery Method Room Air Weight: 76.6 kg Body Mass Index (BMI) 29.5 Intake and Output for Last 24 Hours 07/24/17 07/25/17 07/26/17 23:59 23:59 23:59 Intake Total 1101.1 / 1101.1 1329 / 1329 970 / 970 Output Total 1675 / 1675 2725 / 2725 975 / 975 Balance -573.9 / -573.9 -1396 / -1396 -5 / -5 General: Alert, Cooperative, No apparent distress, - - up in the halls working with PT HEENT: Atraumatic, Normocephalic Neck: No Nodes, Thyroid Normal Size and Texture Lungs: Normal air movement, No wheeze, - - bibasilar crackles. Cardiovascular: Regular rate, Regular Rhythm, Normal S1, Normal S2, No murmurs Abdomen: Bowel Sounds Present, Soft, Non Tender, Non-Distended Extremities: Edema - trace Skin: No rashes, No breakdown Psych/Mental Status: Normal Affect, Appropriate Laboratory Results 07/25/17 17:28: POC Glucose 155 H 07/25/17 21:15: POC Glucose 254 H 07/26/17 05:35: WBC 3.9 L, RBC 2.85 L, Hgb 9.1 L, Hct 29.5 L, MCV 103.5 H, MCH 31.9, MCHC 30.8 L, RDW 18.7 H, RDW Differential 70.3 H, Plt Count 192, MPV 9.6, Immature Gran % (Auto) 1.000 H, Neut % (Auto) 35.0 L, Lymph % (Auto) 36.3, [place] % (Auto) 17.9 H, Eos % (Auto) 9.5 H, Baso % (Auto) 0.3, Absolute Neuts (auto) 1.4 L, Absolute Lymphs (auto) 1.42, Total Counted Not Reportable, Differential Comment SCANNED, Anisocytosis 3+, Macrocytosis 2+ 07/26/17 05:35: Sodium 140, Potassium 2.8 L, Chloride 97 L, Carbon Dioxide 36.0 H, Anion Gap 7, BUN 18, Creatinine 1.48 H, Estim Creat Clear Calc 36.11, Est GFR (MDRD) Af Amer 60, Est GFR (MDRD) Non-Af 49 L, BUN/Creatinine Ratio 12.2, Glucose 108 H, Calcium 8.3 L 07/26/17 06:47: POC Glucose 119 H 07/26/17 10:56: POC Glucose 140 H 07/26/17 15:59: POC Glucose 177 H Current Medications Acetaminophen (Tylenol) 650 mg PO Q6H PRN PRN Reason: MILD-MOD PAIN (1-10/11) Albuterol/Ipratropium (Duoneb) 3 ml INHALATION Q4H.RT [facility] Last Admin: 07/26/17 14:43 Dose: 3 ml Amiodarone HCl (Cordarone) 200 mg PO DAILY [facility] Aspirin (Aspirin, Baby) 81 mg PO DAILY@0800 [facility] Last Admin: 07/26/17 09:01 Dose: 81 mg Benzonatate (Tessalon Perle) 100 mg PO 4X/DAY PRN PRN PRN Reason: COUGH Last Admin: 07/26/17 03:28 Dose: 100 mg Carvedilol (Coreg) 3.125 mg PO BID [facility] Chlorhexidine Gluconate () 1 each TOPICAL DAILY [facility] Last Admin: 07/26/17 08:54 Dose: Not Given Dextrose (D50w Syringe) 0 gm IV X1 PRN; Protocol PRN Reason: Hypoglycemia Furosemide (Lasix) 40 mg PO BID@1000,1800 [facility] Last Admin: 07/26/17 09:00 Dose: 40 mg Glucagon () 1 mg IM .X1 PRN PRN Reason: Hypoglycemia Guaifenesin (Mucinex) 1,200 mg PO BID [facility] Last Admin: 07/26/17 09:03 Dose: 1,200 mg Guaifenesin/Codeine Phosphate (Robitussin Ac) 5 - 10 ml PO Q6H PRN PRN PRN Reason: COUGH Last Admin: 07/26/17 15:54 Dose: 10 ml Insulin Aspart (Novolog Flexpen (Bk)) 0 units SC ACHS [facility] PRN Reason: Protocol Last Admin: 07/26/17 10:58 Dose: Not Given Insulin Detemir (Levemir ([facility])) 5 units SC BID [facility] Last Admin: 07/26/17 09:06 Dose: 5 u Magnesium Hydroxide (Milk Of Magnesia) 30 ml PO DAILY PRN PRN PRN Reason: Constipation Multivitamins (Multivitamin) 1 tablet PO DAILY@0800 [facility] Last Admin: 07/26/17 09:03 Dose: 1 tablet Ondansetron HCl (Zofran) 4 mg IV Q8H PRN PRN PRN Reason: NAUSEA Last Admin: 07/25/17 12:02 Dose: 4 mg Polyethylene Glycol (Miralax) 17 gm PO DAILY [facility] Last Admin: 07/26/17 09:00 Dose: 17 gm Polysaccharide Iron Complex (Ferrex 150) [facility] Last Admin: 07/26/17 09:02 Dose: 150 mg Sodium Chloride () 5 - 30 ml IV UD PRN PRN Reason: SALINE FLUSH Last Admin: 07/25/17 12:02 Dose: 10 ml Spironolactone (Aldactone) 12.5 mg PO DAILY [facility] Last Admin: 07/26/17 09:01 Dose: 12.5 mg Warfarin Sodium (Coumadin (Pbkc)) 1 mg PO DAILY@1700 [facility] Last Admin: 07/26/17 15:56 Dose: 1 mg Assessment/Plan Active and Suspected Problems (Last Reviewed 05/17/17 @ 15:28 by Trice Bowling) Acute respiratory failure with hypercapnia (Acute) Heart failure with reduced ejection fraction (Acute) Metabolic encephalopathy (Acute) 1. Acute hypercapnic respiratory failure * [place] to be from my standpoint to be related with heart failure * Patient being treated for a possible pneumonia as well as heart failure. * Much improved at this time. Taken off of all oxygen and doing well. 2. Acute heart failure with reduced ejection fraction * Ejection fraction now down to 15-20% from 45-50% on 05/02/2017. * Patient has a LifeVest * Change lasix to PO given worsening kidney function. 3. Status post aortic valve replacement * Patient did have a severe aortic stenosis prior to that. 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 4. Metabolic encephalopathy * Secondary to CO2 narcosis * Treatments the underlying process and evaluate. Hold sedating medications. * Resolved 5. Atrial fibrillation: * Patient is anticoagulated on Coumadin. * On amiodarone 6. DVT prophylaxis: Patient is anticoagulated. 7. CHRIST * Suspect prerenal due to overdiuresis * Follow up in am * lasix changed over to PO. * improved today. 8. Disposition * pending precertification, not back today. Code Visit Inpatient E&M: 51120 Subs Hosp L2
[2017-07-26] MEDS: Carvedilol 3.125 MG TABLET PO (21:08)
[2017-07-26 21:46] LABS: Bedside Glucose 200 mg/dL (70-110)
[2017-07-27] VITALS (16 sets, daily range): BP systolic 100–117; BP diastolic 51–74; PULSE 59–96; RESP 16–22; TEMP 36.5–36.9; O2SAT 92–95
[2017-07-27] MEDS: Ipratropium/Albuterol Sulfate 3 ML AMPUL.NEB INHALATION ×6 (03:22→23:33)
[2017-07-27 06:51] LABS: Bedside Glucose 116 mg/dL (70-110)
[2017-07-27 07:30] LABS: Anion Gap 6 (5-15); BUN 20 mg/dL (7-18); BUN/Creat Ratio 12.9 RATIO (10-20); Calcium,Total 8.4 mg/dL (8.5-10.1); Chloride 100 mmol/L (98-107); Creatinine, Serum 1.55 mg/dL (0.70-1.30); EST Glomerular Filtration Rate 47 mL/min (>60); Est Glom Filt Rate - Afr Amer 57 mL/min (>60); Estimated Creatinine Clearance 34.48 ml/min; Glucose 106 mg/dL (74-106); Magnesium 1.9 mg/dL (1.6-2.6); Potassium 3.6 mmol/L (3.5-5.1); Sodium Level 141 mmol/L (136-145)
[2017-07-27] MEDS: guaiFENesin/Codeine 5 ML UDC PO ×2 (08:19→17:08)
[2017-07-27] MEDS: Aspirin 81 MG TAB.CHEW PO (08:19)
[2017-07-27] MEDS: Iron Polysaccharide Complex 150 MG CAPSULE PO (08:19)
[2017-07-27] MEDS: Benzonatate 100 MG Capsule PO ×3 (08:19→21:24)
[2017-07-27] MEDS: Multivitamins,Therapeutic Tablet 1 TABLET PO (08:19)
[2017-07-27] MEDS: Furosemide 40 MG Tablet PO ×2 (09:46→17:10)
[2017-07-27] MEDS: Spironolactone 25 MG Tablet 12.5 MG PO (09:46)
[2017-07-27] MEDS: Magnesium Hydroxide 30 ML UDC PO (09:46)
[2017-07-27] MEDS: Polyethylene Glycol 3350 17 GM PACKET PO (09:46)
[2017-07-27] MEDS: Amiodarone 200 MG Tablet PO (09:46)
[2017-07-27] MEDS: Carvedilol 3.125 MG TABLET PO ×2 (09:46→21:24)
[2017-07-27] MEDS: guaiFENesin 1,200 MG Tablet 1200 MG PO ×2 (09:49→21:28)
[2017-07-27 11:21] LABS: Bedside Glucose 158 mg/dL (70-110)
[2017-07-27 11:43] LABS: International Normalized Ratio 2.4; Prothrombin Time (Protime)PT. 25.2 SECONDS (11.7-14.9)
--- NOTE | 2017-07-27 13:32 | PN_ITS ---
Patient Problems: Active and Suspected Problems (Last Reviewed 05/17/17 @ 15:28 by Trice Bowling) Acute respiratory failure with hypercapnia (Acute) Heart failure with reduced ejection fraction (Acute) Metabolic encephalopathy (Acute) Subjective: No Shortness of breath. No chest pain. Vitals/I&O's: Vital Signs Temp Pulse Resp BP Pulse Ox 36.7 C 96 20 H 110/74 93 07/27/17 09:45 07/27/17 10:59 07/27/17 10:30 07/27/17 09:45 07/27/17 09:45 Oxygen Flow Rate 2 Oxygen Delivery Method Room Air Weight: 75.9 kg Body Mass Index (BMI) 29.5 Intake and Output for Last 24 Hours 07/25/17 07/26/17 07/27/17 23:59 23:59 23:59 Intake Total 1329 / 1329 1150 / 1150 960 / 960 Output Total 2725 / 2725 1150 / 1150 1125 / 1125 Balance -1396 / -1396 0 / 0 -165 / -165 General: Alert, Cooperative, No apparent distress HEENT: Atraumatic, Normocephalic Neck: No Nodes, Thyroid Normal Size and Texture Lungs: Clear to auscultation, Normal air movement, No rhonchi, No wheeze Cardiovascular: Regular rate, Regular Rhythm, Normal S1, Normal S2, No murmurs Abdomen: Bowel Sounds Present, Soft, Non Tender, Non-Distended, No Hepato- splenomegaly Extremities: No edema, No Calf Tenderness Psych/Mental Status: Normal Affect, Appropriate Laboratory Results 07/26/17 15:59: POC Glucose 177 H 07/26/17 21:02: POC Glucose 200 H 07/27/17 06:30: Sodium 141, Potassium 3.6, Chloride 100, Carbon Dioxide 35.0 H, Anion Gap 6, BUN 20 H, Creatinine 1.55 H, Estim Creat Clear Calc 34.48, Est GFR (MDRD) Af Amer 57 L, Est GFR (MDRD) Non-Af 47 L, BUN/Creatinine Ratio 12.9, Glucose 106, Calcium 8.4 L, Magnesium 1.9 07/27/17 06:40: POC Glucose 116 H 07/27/17 11:05: PT 25.2 H, INR 2.4 07/27/17 11:11: POC Glucose 158 H Current Medications Acetaminophen (Tylenol) 650 mg PO Q6H PRN PRN Reason: MILD-MOD PAIN (1-5/10) Albuterol/Ipratropium (Duoneb) 3 ml INHALATION Q4H.RT [facility] Last Admin: 07/27/17 10:30 Dose: 3 ml Amiodarone HCl (Cordarone) 200 mg PO DAILY [facility] Last Admin: 07/27/17 09:46 Dose: 200 mg Aspirin (Aspirin, Baby) 81 mg PO DAILY@0800 [facility] Last Admin: 07/27/17 08:19 Dose: 81 mg Benzonatate (Tessalon Perle) 100 mg PO 4X/DAY PRN PRN PRN Reason: COUGH Last Admin: 07/27/17 08:19 Dose: 100 mg Carvedilol (Coreg) 3.125 mg PO BID [facility] Last Admin: 07/27/17 09:46 Dose: 3.125 mg Chlorhexidine Gluconate () 1 each TOPICAL DAILY [facility] Last Admin: 07/27/17 09:49 Dose: Not Given Dextrose (D50w Syringe) 0 gm IV X1 PRN; Protocol PRN Reason: Hypoglycemia Furosemide (Lasix) 40 mg PO BID@1000,1800 [facility] Last Admin: 07/27/17 09:46 Dose: 40 mg Glucagon () 1 mg IM .X1 PRN PRN Reason: Hypoglycemia Guaifenesin (Mucinex) 1,200 mg PO BID [facility] Last Admin: 07/27/17 09:49 Dose: 1,200 mg Guaifenesin/Codeine Phosphate (Robitussin Ac) 5 - 10 ml PO Q6H PRN PRN PRN Reason: COUGH Last Admin: 07/27/17 08:19 Dose: 10 ml Insulin Aspart (Novolog Flexpen (Bkc)) 0 units SC ACHS [facility] PRN Reason: Protocol Last Admin: 07/27/17 11:13 Dose: 1 u Insulin Detemir (Levemir (Bkc)) 5 units SC BID [facility] Last Admin: 07/27/17 09:47 Dose: 5 u Magnesium Hydroxide (Milk Of Magnesia) 30 ml PO DAILY PRN PRN PRN Reason: Constipation Last Admin: 07/27/17 09:46 Dose: 30 ml Multivitamins (Multivitamin) 1 tablet PO DAILY@0800 [facility] Last Admin: 07/27/17 08:19 Dose: 1 tablet Ondansetron HCl (Zofran) 4 mg IV Q8H PRN PRN PRN Reason: NAUSEA Last Admin: 07/25/17 12:02 Dose: 4 mg Polyethylene Glycol (Miralax) 17 gm PO DAILY [facility] Last Admin: 07/27/17 09:46 Dose: 17 gm Polysaccharide Iron Complex (Ferrex 150) 150 mg PO DAILYCM [facility] Last Admin: 07/27/17 08:19 Dose: 150 mg Sodium Chloride () 5 - 30 ml IV UD PRN PRN Reason: SALINE FLUSH Last Admin: 07/25/17 12:02 Dose: 10 ml Spironolactone (Aldactone) 12.5 mg PO DAILY [facility] Last Admin: 07/27/17 09:46 Dose: 12.5 mg Warfarin Sodium (Coumadin (Pbkc)) 1 mg PO DAILY@1700 [facility] Last Admin: 07/26/17 15:56 Dose: 1 mg Assessment/Plan Active and Suspected Problems (Last Reviewed 05/17/17 @ 15:28 by Trice Bowling) Acute respiratory failure with hypercapnia (Acute) Heart failure with reduced ejection fraction (Acute) Metabolic encephalopathy (Acute) 1. Acute hypercapnic respiratory failure * [place] to be from my standpoint to be related with heart failure * Patient being treated for a possible pneumonia as well as heart failure. * Much improved at this time. Taken off of all oxygen and doing well. 2. Acute heart failure with reduced ejection fraction * Ejection fraction now down to 15-20% from 45-50% on 05/02/2017. * Patient has a LifeVest * Change lasix to PO given worsening kidney function. 3. Status post aortic valve replacement * Patient did have a severe aortic stenosis prior to that. 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 4. Metabolic encephalopathy * Secondary to CO2 narcosis * Treatments the underlying process and evaluate. Hold sedating medications. * Resolved 5. Atrial fibrillation: * Patient is anticoagulated on Coumadin. * On amiodarone 6. DVT prophylaxis: Patient is anticoagulated. 7. CHRIST * Suspect prerenal due to overdiuresis * Follow up in am * lasix changed over to PO. * improved today. 8. Disposition * pending precertification, not back today.
--- NOTE | 2017-07-27 13:35 | PCM.TXEXTCAR ---
- Diet 07/23/17 09:57 Diet: Cardiac/Low Cholesterol Food consistency:: Regular Liquid Consistency:: Regular/Thin Is pt able to select menu?: Yes - Routine Orders/Code Status Routine Lab Work: BMP, INR Code Status: Full Code - Wound(s) RT side forehead Wound Type: Abrasion Upper ABD x4 Wound Type: Puncture Chest Wound Type: Surgical Incision Coccyx Wound Type: Pressure Injury - Therapies Weight Bearing: Full weight bearing Physical Therapy: Eval and Treat Occupational Therapy: Eval and Treat - Problem/Diagnosis (1) Acute respiratory failure with hypercapnia Status: Acute Current Visit: Yes (2) Heart failure with reduced ejection fraction Status: Acute Current Visit: Yes (3) H/O aortic valve replacement Status: Chronic Current Visit: Yes (4) Mitral valve insufficiency Status: Chronic Comment: Repair [facility] 06/2017 Current Visit: No (5) Diabetes mellitus Status: Chronic Current Visit: No (6) Chronic kidney disease Status: Chronic Current Visit: No (7) Hypertension Status: Chronic Current Visit: No (8) Dyspnea on exertion Status: Chronic Current Visit: No (9) Allergic rhinitis Status: Chronic Current Visit: No (10) Metabolic encephalopathy Status: Acute Current Visit: Yes - Allergies/Procedures Done in Hospital Allergies/Adverse Reactions: Allergies No Known Allergies Allergy (Verified 07/23/17 06:54) Procedures: 2-D Echocardiogram - Type of Care/Length of Stay Estimated LOS: Convalescent Care Less Than 30 days Type of Care Needed: Skilled Rehab Potential: Fair Prognosis: Fair - Additional Orders/Day of Discharge Day of Discharge: 07/27/17 - Dietary and Speech Recommendations Dietitian Recommendations/Changes: Rec diet change to Carbohydrate Controlled, Cardiac/Low Cholesterol, Low Sodium diet w/ fluid restriction as needed. Will provide 120 mL Glucerna w/ meals for additional calories/protein if consumed. - Follow Up Care Primary Care Physician: Dusty Almanza MD [Primary Care Provider] - Please Follow Up With: Asif Higgins MD When: 2-4 weeks Please Follow Up With: Xavier Mckeon MD - Pulmonology When: 1-2 months
--- NOTE | 2017-07-27 13:39 | PCM.DC.SUM ---
Discharge Date and Diagnosis - Problem List Patient Problems: Active and Suspected Problems (Last Reviewed 05/17/17 @ 15:28 by Trice Bolwing) CHRIST (acute kidney injury) (Acute) Acute respiratory failure with hypercapnia (Acute) Heart failure with reduced ejection fraction (Acute) Metabolic encephalopathy (Acute) Date of Admission: 07/23/17 Date of Discharge: 07/27/17 - Primary Discharge Diagnosis Active and Suspected Problems (Last Reviewed 05/17/17 @ 15:28 by Trice Bowling) Acute respiratory failure with hypercapnia (Acute) Heart failure with reduced ejection fraction (Acute) Metabolic encephalopathy (Acute) - Secondary Discharge Diagnosis Chronic Problems (Last Reviewed 05/17/17 @ 15:28 by Trice Bowling) Mitral valve insufficiency (Chronic) Repair [facility] 06/2017 Diabetes mellitus (Chronic) Chronic kidney disease (Chronic) H/O aortic valve replacement (Chronic) 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) Type 2 diabetes mellitus with hyperglycemia (Chronic) Cardiomyopathy in disease classified elsewhere (Chronic) 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 Electronically Signed: Davie cSott MD at 8:11 EST Tel [phone], Service support , Chest X-Ray 07/23/17 07:02 IMPRESSION: Progressive bilateral airspace disease suggestive of progressive infiltration versus CHF. Small bilateral pleural effusions. Follow-up recommended. Electronically Signed: Davie Scott MD at 8:14 EST Tel [phone], Service support , Higgins Mike Operations: cholecystecomy - Laparoscopic converted to open Procedures: 2-D Echocardiogram - EF 15-20%. Summary of Care Provided: The patient is a 77 year old M Meka with acute change in mental status. Patient was found to be in acute hypercapnic respiratory failure with PCO2 of 78.8. Patient was started on a BiPAP and then admitted to the ICU. Patient was found to have acute CHF but may have had a pneumonia as well initially. Patient started on Lasix as well as spectrum antibiotics. Cultures were performed which came back negative so antibiotics were discontinued. Patient continued to improve very quickly. Patient's mental status improved. Patient was continued to be diuresed to the point where his kidney function did get worse and then was changed back over to oral Lasix. Patient's kidney function has improved from then. So patient will be going back to the transitional care unit once precertification has been obtained. 1. Acute hypercapnic respiratory failure [place] to be from my standpoint to be related with heart failure Patient being treated for a possible pneumonia as well as heart failure. Much improved at this time. Taken off of all oxygen and doing well. 2. Acute heart failure with reduced ejection fraction Ejection fraction now down to 15-20% from 45-50% on 05/02/2017. Patient has a LifeVest Change lasix to PO given worsening kidney function. 3. Status post aortic valve replacement Patient did have a severe aortic stenosis prior to that. 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 4. Metabolic encephalopathy Secondary to CO2 narcosis Treatments the underlying process and evaluate. Hold sedating medications. Resolved 5. Atrial fibrillation: Patient is anticoagulated on Coumadin. On amiodarone 6. DVT prophylaxis: Patient is anticoagulated. 7. CHRIST Suspect prerenal due to overdiuresis Follow up in am lasix changed over to PO. improved today. [] Discharge Diet: Low fat/ Low Cholesterol, 6 Cup Fluid Restriction, 2000 mg Sodium Diet Discharge Activity: Return to Normal Activity Call your doctor if you observe: Fever of 101 or Higher, Shortness of breath Home Medications: Medications to take at Discharge Multivitamins,Therapeutic [Multivitamin] 1 tab PO DAILY 07/02/14 Acetaminophen 650 mg PO Q6H PRN 07/18/17 Albuterol Inhaler [Ventolin Hfa] 2 puff INHALATION Q4H PRN PRN 07/18/17 Aspirin [Aspirin, Baby] 81 mg PO DAILY@0800 07/18/17 Insulin Detemir [Levemir FlexPen] 5 units SC BID 07/23/17 Iron Polysaccharide Complex [Ferrex 150] 150 mg PO DAILYCM 07/23/17 Polyethylene Glycol 3350 [Miralax] 17 gm PO DAILY 07/23/17 Senna [Senokot] 1 tablet PO BID 07/23/17 Trazodone HCl [Desyrel] 50 mg PO QHS 07/23/17 Warfarin [Coumadin] 1 mg PO DAILY 07/23/17 Amiodarone HCl [Cordarone] 200 mg PO DAILY tablet 07/27/17 Benzonatate [Tessalon Perle] 100 mg PO 4X/DAY PRN PRN capsule 07/27/17 Carvedilol [Coreg (Beta Severo)] 3.125 mg PO BID tablet 07/27/17 Guaifenesin/Codeine [Robitussin AC] 5 - 10 ml PO Q6H PRN PRN #250 ml 07/27/17 Insulin Aspart [Novolog Flexpen] See Protocol SC ACHS flexpen 07/27/17 Spironolactone [Aldactone] 12.5 mg PO DAILY tablet 07/27/17 Following Prescrptions Were Given to Patient: Guaifenesin/Codeine [Robitussin AC] 5 - 10 ml PO Q6H PRN PRN #250 ml PRN Reason: COUGH Primary Care Physician: Dusty Almanza MD [Primary Care Provider] - Please Follow Up With: Asif Higgins MD When: 2-4 weeks Please Follow Up With: Xavier Mckeon MD - Pulmonology When: 1-2 months Disposition: Longterm facility Minutes spent on discharge:: 35 Patient Condition:: Fair Meaningful Use Info Meaningful Use Diagnoses (Choose all that apply): CHF - CHF DIMAS/ARB ordered at discharge?: No Reason DIMAS/ARB not ordered?: Worsening renal disease Documented LVEF (%): 15 Code Visit Inpatient E&M: 03882 Disch Hosp
--- NOTE | 2017-07-27 13:45 | DS.PCM_ITS ---
Discharge Date and Diagnosis - Problem List Patient Problems: Active and Suspected Problems (Last Reviewed 05/17/17 @ 15:28 by Trice Bowling) CHRIST (acute kidney injury) (Acute) Acute respiratory failure with hypercapnia (Acute) Heart failure with reduced ejection fraction (Acute) Metabolic encephalopathy (Acute) Date of Admission: 07/23/17 Date of Discharge: 07/27/17 - Primary Discharge Diagnosis Active and Suspected Problems (Last Reviewed 05/17/17 @ 15:28 by Trice Bowilng) Acute respiratory failure with hypercapnia (Acute) Heart failure with reduced ejection fraction (Acute) Metabolic encephalopathy (Acute) - Secondary Discharge Diagnosis Chronic Problems (Last Reviewed 05/17/17 @ 15:28 by Trice Bowling) Mitral valve insufficiency (Chronic) Repair [facility] 06/2017 Diabetes mellitus (Chronic) Chronic kidney disease (Chronic) H/O aortic valve replacement (Chronic) 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) Type 2 diabetes mellitus with hyperglycemia (Chronic) Cardiomyopathy in disease classified elsewhere (Chronic) 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 Electronically Signed: Davie Scott MD at 8:11 EST Tel [phone], Service support , Chest X-Ray 07/23/17 07:02 IMPRESSION: Progressive bilateral airspace disease suggestive of progressive infiltration versus CHF. Small bilateral pleural effusions. Follow-up recommended. Electronically Signed: Davie Scott MD at 8:14 EST Tel [phone], Service support , Higgins Mike Operations: cholecystecomy - Laparoscopic converted to open Procedures: 2-D Echocardiogram - EF 15-20%. Summary of Care Provided: The patient is a 77 year old M Meka with acute change in mental status. Patient was found to be in acute hypercapnic respiratory failure with PCO2 of 78.8. Patient was started on a BiPAP and then admitted to the ICU. Patient was found to have acute CHF but may have had a pneumonia as well initially. Patient started on Lasix as well as spectrum antibiotics. Cultures were performed which came back negative so antibiotics were discontinued. Patient continued to improve very quickly. Patient's mental status improved. Patient was continued to be diuresed to the point where his kidney function did get worse and then was changed back over to oral Lasix. Patient's kidney function has improved from then. So patient will be going back to the transitional care unit once precertification has been obtained. 1. Acute hypercapnic respiratory failure * [place] to be from my standpoint to be related with heart failure * Patient being treated for a possible pneumonia as well as heart failure. * Much improved at this time. Taken off of all oxygen and doing well. 2. Acute heart failure with reduced ejection fraction * Ejection fraction now down to 15-20% from 45-50% on 05/02/2017. * Patient has a LifeVest * Change lasix to PO given worsening kidney function. 3. Status post aortic valve replacement * Patient did have a severe aortic stenosis prior to that. 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 4. Metabolic encephalopathy * Secondary to CO2 narcosis * Treatments the underlying process and evaluate. Hold sedating medications. * Resolved 5. Atrial fibrillation: * Patient is anticoagulated on Coumadin. * On amiodarone 6. DVT prophylaxis: Patient is anticoagulated. 7. CHRIST * Suspect prerenal due to overdiuresis * Follow up in am * lasix changed over to PO. * improved today. [] Discharge Diet: Low fat/ Low Cholesterol, 6 Cup Fluid Restriction, 2000 mg Sodium Diet Discharge Activity: Return to Normal Activity Call your doctor if you observe: Fever of 101 or Higher, Shortness of breath Home Medications: Medications to take at Discharge Multivitamins,Therapeutic [Multivitamin] 1 tab PO DAILY 07/02/14 Acetaminophen 650 mg PO Q6H PRN 07/18/17 Albuterol Inhaler [Ventolin Hfa] 2 puff INHALATION Q4H PRN PRN 07/18/17 Aspirin [Aspirin, Baby] 81 mg PO DAILY@0800 07/18/17 Insulin Detemir [Levemir FlexPen] 5 units SC BID 07/23/17 Iron Polysaccharide Complex [Ferrex 150] 150 mg PO DAILYCM 07/23/17 Polyethylene Glycol 3350 [Miralax] 17 gm PO DAILY 07/23/17 Senna [Senokot] 1 tablet PO BID 07/23/17 Trazodone HCl [Desyrel] 50 mg PO QHS 07/23/17 Warfarin [Coumadin] 1 mg PO DAILY 07/23/17 Amiodarone HCl [Cordarone] 200 mg PO DAILY tablet 07/27/17 Benzonatate [Tessalon Perle] 100 mg PO 4X/DAY PRN PRN capsule 07/27/17 Carvedilol [Coreg (Beta Severo)] 3.125 mg PO BID tablet 07/27/17 Guaifenesin/Codeine [Robitussin AC] 5 - 10 ml PO Q6H PRN PRN #250 ml 07/27/17 Insulin Aspart [Novolog Flexpen] See Protocol SC ACHS flexpen 07/27/17 Spironolactone [Aldactone] 12.5 mg PO DAILY tablet 07/27/17 Following Prescrptions Were Given to Patient: Guaifenesin/Codeine [Robitussin AC] 5 - 10 ml PO Q6H PRN PRN #250 ml PRN Reason: COUGH Primary Care Physician: Dusty Almanza MD [Primary Care Provider] - Please Follow Up With: Asif Higgins MD When: 2-4 weeks Please Follow Up With: Xavier Mckeon MD - Pulmonology When: 1-2 months Disposition: Detention facility Minutes spent on discharge:: 35 Patient Condition:: Fair Meaningful Use Info Meaningful Use Diagnoses (Choose all that apply): CHF - CHF DIMAS/ARB ordered at discharge?: No Reason DIMAS/ARB not ordered?: Worsening renal disease Documented LVEF (%): 15 Code Visit Inpatient E&M: 37241 Disch Hosp
--- NOTE | 2017-07-27 13:53 | PN.CARD_ITS ---
Subjectve: Patient continues to improve, has a mild cough this morning but no fevers or chills. Telemetry with atypical flutter with controlled ventricular response. Patient feels much better since admission. Objective: Vital Signs Temp Pulse Resp BP Pulse Ox 98.0 F 96 20 H 110/74 93 07/27/17 09:45 07/27/17 10:59 07/27/17 10:30 07/27/17 09:45 07/27/17 09:45 Oxygen Flow Rate 2 Oxygen Delivery Method Room Air Weight: 167 lb 5.294 oz Body Mass Index (BMI) 29.5 Intake and Output for Last 24 Hours 07/25/17 07/26/17 07/27/17 23:59 23:59 23:59 Intake Total 1329 / 1329 1150 / 1150 960 / 960 Output Total 2725 / 2725 1150 / 1150 1125 / 1125 Balance -1396 / -1396 0 / 0 -165 / -165 General: Awake, Alert, Oriented x 3 HEENT: PERRL, EOMI, Sclera Non Icteric Neck: Supple, Good ROM, No Lymph Node Enlargement Lungs: Clear to auscultation Cardiovascular: Irregular Rhythm, Normal S1, Normal S2, No Rubs, No Gallops Murmur Murmur: Grade 2/6, Crescendo-Decrescendo Vascular: No Carotid Bruits, Normal Femoral Pulses, Normal Radial Pulses, Normal Dorsalis Pedal Pulse, Normal Posterior Tibial Pulses Abdomen: Bowel Sounds Present, Soft, Non Tender, No HSM, No Organomegaly Extremities: No Cyanosis, No Clubbing, No edema Neurological: No Focal Motor or Sensory Deficit 07/27/17 06:30: Sodium 141, Potassium 3.6, Chloride 100, Carbon Dioxide 35.0 H, Anion Gap 6, BUN 20 H, Creatinine 1.55 H, Est GFR (MDRD) Af Amer 57 L, Est GFR ( MDRD) Non-Af 47 L, BUN/Creatinine Ratio 12.9, Glucose 106, Calcium 8.4 L, Magnesium 1.9 07/27/17 11:05: PT 25.2 H, INR 2.4 Rhythm: EKG: ECHO: Stress Test: Cardiac Cath: PCI: CT Surgery: Holter monitor: EPS: PPM: CXR: Chest CT Scan: Assessment/Plan 1. LV dysfunction: The patient has had acute deterioration of his LV function after his aortic valve replacement and mitral valve repair, and presented with congestive heart failure with bilateral pleural effusions, shortness of breath, and lower extremity edema. Patient is diuresed approximately 4 L since admission, losing approximately 8 pounds. His breathing is much better, and is tolerating p.o. Lasix well. He has no edema. Recommend continuing Lasix 40 mill grams p.o. twice daily and spironolactone 12.5 mg daily. His BUN and creatinine have remained stable. Given the patient's LV dysfunction he will require lifelong anticoagulation to avoid LV thrombus formation. Given his normal coronary arteries preoperatively and lack of anginal symptoms postoperatively, I would not recommend repeat catheterization at this time. Once the patient's hemoglobin has normalized, he has gone through cardiac rehab , we will can reconsider reechoing him to determine if his LV function has improved. Continue Coreg 3.125 mg p.o. twice daily. In the meantime we will continue with a 1500 cc fluid restriction. Please max concentrate all IV drips. 2. Atrial fibrillation/atrial flutter: Continue amiodarone 200 mg p.o. daily. He currently appears to be an ectopic atrial rhythm versus normal sinus rhythm with first-degree AV block. Continue anticoagulation. Once the patient has been loaded with amiodarone for 3 consecutive weeks and his INR is above 2.0 for 4 consecutive weeks, we will proceed with DC cardioversion. Patient appears to have an atypical atrial flutter, which may chemically convert with diuresis, beta-poornima, and amiodarone therapy. INR is therapeutic. 3. She may be transferred back to inpatient rehab. He will follow-up in our office going forward. Code Visit Inpatient E&M: [id number] Subs Hosp L2
[2017-07-27] MEDS: 0.9% NaCl Peripheral Flush Adult/Peds IV (16:01)
[2017-07-27] MEDS: Ondansetron 4 MG/2 ML Vial IV (16:01)
--- NOTE | 2017-07-27 16:09 | CHAPLAIN ---
attempt to visit with patient; pt was unavailable
[2017-07-27 16:11] LABS: Bedside Glucose 150 mg/dL (70-110)
--- NOTE | 2017-07-27 16:41 | CASEMGMT ---
Still waiting on insurance authorization for [facility]. Richa from TCU will call the unit if she receives approval. Arianne YAP
[2017-07-27 22:06] LABS: Bedside Glucose 129 mg/dL (70-110)
[2017-07-28] VITALS (18 sets, daily range): BP systolic 110–118; BP diastolic 58–84; PULSE 62–97; RESP 16–20; TEMP 36.4–36.8; O2SAT 84–97
[2017-07-28] MEDS: guaiFENesin/Codeine 5 ML UDC PO ×2 (01:33→20:14)
[2017-07-28] MEDS: Ipratropium/Albuterol Sulfate 3 ML AMPUL.NEB INHALATION ×6 (03:13→23:21)
[2017-07-28 06:56] LABS: Bedside Glucose 119 mg/dL (70-110)
--- NOTE | 2017-07-28 07:51 | EKG12_ITS ---
Test Reason : ARRYTHYMIA Blood Pressure : / mmHG Vent. Rate : 095 BPM Atrial Rate : 087 BPM P-R Int : 000 ms QRS Dur : 134 ms QT Int : 414 ms P-R-T Axes : 000 -53 106 degrees QTc Int : 520 ms Atrial fibrillation Left axis deviation Non-specific intra-ventricular conduction block T wave abnormality, consider lateral ischemia Abnormal ECG Confirmed by MIGUEL CEDENO, HILARY ([id number]), publications editor CHEPE MEADE ([id number]) on 08/01/2017 2:42:06 PM Referred By: MICHAEL Confirmed By:HILARY RIVERA MD
[2017-07-28 08:14] LABS: International Normalized Ratio 2.2; Prothrombin Time (Protime)PT. 23.5 SECONDS (11.7-14.9)
[2017-07-28 08:19] LABS: Anion Gap 6 (5-15); BUN 22 mg/dL (7-18); BUN/Creat Ratio 14.3 RATIO (10-20); Calcium,Total 8.7 mg/dL (8.5-10.1); Chloride 95 mmol/L (98-107); Creatinine, Serum 1.54 mg/dL (0.70-1.30); EST Glomerular Filtration Rate 47 mL/min (>60); Est Glom Filt Rate - Afr Amer 57 mL/min (>60); Glucose 131 mg/dL (74-106); Potassium 3.5 mmol/L (3.5-5.1); Sodium Level 136 mmol/L (136-145)
[2017-07-28] MEDS: Spironolactone 25 MG Tablet 12.5 MG PO (08:37)
[2017-07-28] MEDS: Carvedilol 3.125 MG TABLET PO (08:38)
[2017-07-28] MEDS: Amiodarone 200 MG Tablet PO (08:38)
[2017-07-28] MEDS: Iron Polysaccharide Complex 150 MG CAPSULE PO (08:58)
[2017-07-28] MEDS: Aspirin 81 MG TAB.CHEW PO (08:58)
[2017-07-28] MEDS: Furosemide 40 MG Tablet PO ×2 (08:59→18:05)
[2017-07-28] MEDS: Multivitamins,Therapeutic Tablet 1 TABLET PO (08:59)
[2017-07-28] MEDS: guaiFENesin 1,200 MG Tablet 1200 MG PO ×2 (08:59→21:47)
[2017-07-28] MEDS: Polyethylene Glycol 3350 17 GM PACKET PO (09:00)
[2017-07-28] MEDS: Ondansetron 4 MG/2 ML Vial IV (09:04)
--- NOTE | 2017-07-28 09:35 | PCM.PN.HOSP ---
Patient Problems: Active and Suspected Problems (Last Reviewed 05/17/17 @ 15:28 by Trice Bowling) Acute respiratory failure with hypercapnia (Acute) Heart failure with reduced ejection fraction (Acute) Metabolic encephalopathy (Acute) Subjective: Upset about not getting therapy several times per day, as he would get in SNF. Upset that he still here in the hospital despite having been medically ready days ago. Vitals/I&O's: Vital Signs Temp Pulse Resp BP Pulse Ox 36.6 C 62 16 113/69 95 07/28/17 09:12 07/28/17 09:12 07/28/17 09:12 07/28/17 09:12 07/28/17 09:12 Oxygen Flow Rate 2 Oxygen Delivery Method Nasal Cannula Weight: 76.1 kg Body Mass Index (BMI) 29.5 Intake and Output for Last 24 Hours 07/26/17 07/27/17 07/28/17 23:59 23:59 23:59 Intake Total 1150 / 1150 1360 / 1360 120 / 120 Output Total 1150 / 1150 1700 / 1700 200 / 200 Balance 0 / 0 -340 / -340 -80 / -80 General: Alert, Cooperative, No apparent distress HEENT: Atraumatic, Normocephalic Lungs: Clear to auscultation, Normal air movement, No rhonchi, No wheeze Cardiovascular: Regular rate, Regular Rhythm, Normal S1, Normal S2, No murmurs Abdomen: Bowel Sounds Present, Soft, Non Tender, Non-Distended, No Hepato-splenomegaly Extremities: No clubbing, No cyanosis, No edema, Capillary Refill Less than 3 Seconds Psych/Mental Status: Normal Affect, Appropriate Laboratory Results 07/27/17 11:05: PT 25.2 H, INR 2.4 07/27/17 11:11: POC Glucose 158 H 07/27/17 16:03: POC Glucose 150 H 07/27/17 21:12: POC Glucose 129 H 07/28/17 06:41: POC Glucose 119 H 07/28/17 07:50: PT 23.5 H, INR 2.2 07/28/17 07:50: Sodium 136, Potassium 3.5, Chloride 95 L, Carbon Dioxide 35.0 H, Anion Gap 6, BUN 22 H, Creatinine 1.54 H, Estim Creat Clear Calc 34.70, Est GFR (MDRD) Af Amer 57 L, Est GFR (MDRD) Non-Af 47 L, BUN/Creatinine Ratio 14.3, Glucose 131 H, Calcium 8.7 Current Medications Acetaminophen (Tylenol) 650 mg PO Q6H PRN PRN Reason: MILD-MOD PAIN (1-10/11) Albuterol/Ipratropium (Duoneb) 3 ml INHALATION Q4H.RT [facility] Last Admin: 07/28/17 06:58 Dose: 3 ml Amiodarone HCl (Cordarone) 200 mg PO DAILY [facility] Last Admin: 07/28/17 08:38 Dose: 200 mg Aspirin (Aspirin, Baby) 81 mg PO DAILY@0800 [facility] Last Admin: 07/28/17 08:58 Dose: 81 mg Benzonatate (Tessalon Perle) 100 mg PO 4X/DAY PRN PRN PRN Reason: COUGH Last Admin: 07/27/17 21:24 Dose: 100 mg Carvedilol (Coreg) 3.125 mg PO BID [facility] Last Admin: 07/28/17 08:38 Dose: 3.125 mg Chlorhexidine Gluconate () 1 each TOPICAL DAILY [facility] Last Admin: 07/28/17 08:38 Dose: Not Given Dextrose (D50w Syringe) 0 gm IV X1 PRN; Protocol PRN Reason: Hypoglycemia Furosemide (Lasix) 40 mg PO BID@1000,1800 [facility] Last Admin: 07/28/17 08:59 Dose: 40 mg Glucagon () 1 mg IM .X1 PRN PRN Reason: Hypoglycemia Guaifenesin (Mucinex) 1,200 mg PO BID [facility] Last Admin: 07/28/17 08:59 Dose: 1,200 mg Guaifenesin/Codeine Phosphate (Robitussin Ac) 5 - 10 ml PO Q6H PRN PRN PRN Reason: COUGH Last Admin: 07/28/17 01:33 Dose: 10 ml Insulin Aspart (Novolog Flexpen (Bkc)) 0 units SC ACHS [facility] PRN Reason: Protocol Last Admin: 07/28/17 08:36 Dose: Not Given Insulin Detemir (Levemir (Bkc)) 5 units SC BID [facility] Last Admin: 07/28/17 09:00 Dose: 5 u Magnesium Hydroxide (Milk Of Magnesia) 30 ml PO DAILY PRN PRN PRN Reason: Constipation Last Admin: 07/27/17 09:46 Dose: 30 ml Multivitamins (Multivitamin) 1 tablet PO DAILY@0800 [facility] Last Admin: 07/28/17 08:59 Dose: 1 tablet Ondansetron HCl (Zofran) 4 mg IV Q8H PRN PRN PRN Reason: NAUSEA Last Admin: 07/28/17 09:04 Dose: 4 mg Polyethylene Glycol (Miralax) 17 gm PO DAILY [facility] Last Admin: 07/28/17 09:00 Dose: 17 gm [facility]accharide [facility] Admin: 07/28/17 08:58 Dose: 150 mg Sodium Chloride () 5 - 30 ml IV UD PRN PRN Reason: SALINE FLUSH Last Admin: 07/27/17 16:01 Dose: 10 ml Spironolactone (Aldactone) 12.5 mg PO DAILY [facility] Last Admin: 07/28/17 08:37 Dose: 12.5 mg Warfarin Sodium (Coumadin (Pbkc)) 1 mg PO DAILY@1700 [facility] Last Admin: 07/27/17 16:01 Dose: 1 mg Assessment/Plan Active and Suspected Problems (Last Reviewed 05/17/17 @ 15:28 by Trice Bowling) Acute respiratory failure with hypercapnia (Acute) Heart failure with reduced ejection fraction (Acute) Metabolic encephalopathy (Acute) 1. Acute hypercapnic respiratory failure [place] to be from my standpoint to be related with heart failure Patient being treated for a possible pneumonia as well as heart failure. Much improved at this time. Taken off of all oxygen and doing well. 2. Acute heart failure with reduced ejection fraction Ejection fraction now down to 15-20% from 45-50% on 05/02/2017. Patient has a LifeVest Change lasix to PO given worsening kidney function. 3. Status post aortic valve replacement Patient did have a severe aortic stenosis prior to that. 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 4. Metabolic encephalopathy Secondary to CO2 narcosis Treatments the underlying process and evaluate. Hold sedating medications. Resolved 5. Atrial fibrillation: Patient is anticoagulated on Coumadin. On amiodarone 6. DVT prophylaxis: Patient is anticoagulated. 7. CHRIST Suspect prerenal due to overdiuresis Follow up in am lasix changed over to PO. improved today. 8. Disposition pending precertification, not back today. Avoidable day #2 Code Visit Inpatient E&M: 23576 Subs Hosp L2
--- NOTE | 2017-07-28 11:02 | PCM.PN.CARD ---
Subjectve: Patient continues to slowly improve. No 24 hour events. Telemetry shows atrial flutter with controlled ventricular response alternating with rapid ventricular response. Objective: Vital Signs Temp Pulse Resp BP Pulse Ox 97.8 F 97 18 113/69 92 07/28/17 09:12 07/28/17 10:49 07/28/17 10:49 07/28/17 09:12 07/28/17 10:49 Oxygen Flow Rate 0.5 Oxygen Delivery Method Nasal Cannula Weight: 167 lb 12.348 oz Body Mass Index (BMI) 29.5 Intake and Output for Last 24 Hours 07/26/17 07/27/17 07/28/17 23:59 23:59 23:59 Intake Total 1150 / 1150 1360 / 1360 120 / 120 Output Total 1150 / 1150 1700 / 1700 200 / 200 Balance 0 / 0 -340 / -340 -80 / -80 General: Awake, Alert, Oriented x 3 HEENT: PERRL, EOMI, Sclera Non Icteric Neck: Supple, Good ROM, No Lymph Node Enlargement Lungs: Clear to auscultation Cardiovascular: Irregular Rhythm, Normal S1, Normal S2, No Rubs, No Gallops Murmur Murmur: Grade 2/6, Crescendo-Decrescendo Vascular: No Carotid Bruits, Normal Femoral Pulses, Normal Radial Pulses, Normal Dorsalis Pedal Pulse, Normal Posterior Tibial Pulses Abdomen: Bowel Sounds Present, Soft, Non Tender, No HSM, No Organomegaly Extremities: No Cyanosis, No Clubbing, No edema Neurological: No Focal Motor or Sensory Deficit 07/27/17 11:05: PT 25.2 H, INR 2.4 07/28/17 07:50: PT 23.5 H, INR 2.2 07/28/17 07:50: Sodium 136, Potassium 3.5, Chloride 95 L, Carbon Dioxide 35.0 H, Anion Gap 6, BUN 22 H, Creatinine 1.54 H, Est GFR (MDRD) Af Amer 57 L, Est GFR (MDRD) Non-Af 47 L, BUN/Creatinine Ratio 14.3, Glucose 131 H, Calcium 8.7 Rhythm: EKG: ECHO: Stress Test: Cardiac Cath: PCI: CT Surgery: Holter monitor: EPS: PPM: CXR: Chest CT Scan: Assessment/Plan 1. LV dysfunction: The patient has had acute deterioration of his LV function after his aortic valve replacement and mitral valve repair, and presented with congestive heart failure with bilateral pleural effusions, shortness of breath, and lower extremity edema. Patient is diuresed approximately 4 L since admission, losing approximately 8 pounds. His breathing is much better, and is tolerating p.o. Lasix well. He has no edema. Recommend continuing Lasix 40 mill grams p.o. twice daily and spironolactone 12.5 mg daily. His BUN and creatinine have remained stable. Given the patient's LV dysfunction he will require lifelong anticoagulation to avoid LV thrombus formation. Given his normal coronary arteries preoperatively and lack of anginal symptoms postoperatively, I would not recommend repeat catheterization at this time. Once the patient's hemoglobin has normalized, he has gone through cardiac rehab, we will can reconsider reechoing him to determine if his LV function has improved. His heart rate still remains elevated, despite several days of Coreg and amiodarone therapy. Hopefully once his anemia improves his heart rate will slow down. In the meantime we will try to increase his Coreg to 6.25 mg's p.o. twice daily and assuming his blood pressure is okay we will continue this dosage. In the meantime we will continue with a 1500 cc fluid restriction. Please max concentrate all IV drips. 2. Atrial fibrillation/atrial flutter: Continue amiodarone 200 mg p.o. daily. He currently appears to be an ectopic atrial rhythm versus normal sinus rhythm with first-degree AV block. Continue anticoagulation. Once the patient has been loaded with amiodarone for 3 consecutive weeks and his INR is above 2.0 for 4 consecutive weeks, we will proceed with DC cardioversion. Patient appears to have an atypical atrial flutter, which may chemically convert with diuresis, beta-poornima, and amiodarone therapy. INR is therapeutic. 3. Recommend physical therapy/OT therapy for assessment of placements back at inpatient rehab versus senior living. He will follow-up with me going forward. Code Visit Inpatient E&M: [id number] Subs Hosp L2
--- NOTE | 2017-07-28 11:05 | PN.CARD_ITS ---
Subjectve: Patient continues to slowly improve. No 24 hour events. Telemetry shows atrial flutter with controlled ventricular response alternating with rapid ventricular response. Objective: Vital Signs Temp Pulse Resp BP Pulse Ox 97.8 F 97 18 113/69 92 07/28/17 09:12 07/28/17 10:49 07/28/17 10:49 07/28/17 09:12 07/28/17 10:49 Oxygen Flow Rate 0.5 Oxygen Delivery Method Nasal Cannula Weight: 167 lb 12.348 oz Body Mass Index (BMI) 29.5 Intake and Output for Last 24 Hours 07/26/17 07/27/17 07/28/17 23:59 23:59 23:59 Intake Total 1150 / 1150 1360 / 1360 120 / 120 Output Total 1150 / 1150 1700 / 1700 200 / 200 Balance 0 / 0 -340 / -340 -80 / -80 General: Awake, Alert, Oriented x 3 HEENT: PERRL, EOMI, Sclera Non Icteric Neck: Supple, Good ROM, No Lymph Node Enlargement Lungs: Clear to auscultation Cardiovascular: Irregular Rhythm, Normal S1, Normal S2, No Rubs, No Gallops Murmur Murmur: Grade 2/6, Crescendo-Decrescendo Vascular: No Carotid Bruits, Normal Femoral Pulses, Normal Radial Pulses, Normal Dorsalis Pedal Pulse, Normal Posterior Tibial Pulses Abdomen: Bowel Sounds Present, Soft, Non Tender, No HSM, No Organomegaly Extremities: No Cyanosis, No Clubbing, No edema Neurological: No Focal Motor or Sensory Deficit 07/27/17 11:05: PT 25.2 H, INR 2.4 07/28/17 07:50: PT 23.5 H, INR 2.2 07/28/17 07:50: Sodium 136, Potassium 3.5, Chloride 95 L, Carbon Dioxide 35.0 H , Anion Gap 6, BUN 22 H, Creatinine 1.54 H, Est GFR (MDRD) Af Amer 57 L, Est GFR (MDRD) Non-Af 47 L, BUN/Creatinine Ratio 14.3, Glucose 131 H, Calcium 8.7 Rhythm: EKG: ECHO: Stress Test: Cardiac Cath: PCI: CT Surgery: Holter monitor: EPS: PPM: CXR: Chest CT Scan: Assessment/Plan 1. LV dysfunction: The patient has had acute deterioration of his LV function after his aortic valve replacement and mitral valve repair, and presented with congestive heart failure with bilateral pleural effusions, shortness of breath, and lower extremity edema. Patient is diuresed approximately 4 L since admission, losing approximately 8 pounds. His breathing is much better, and is tolerating p.o. Lasix well. He has no edema. Recommend continuing Lasix 40 mill grams p.o. twice daily and spironolactone 12.5 mg daily. His BUN and creatinine have remained stable. Given the patient's LV dysfunction he will require lifelong anticoagulation to avoid LV thrombus formation. Given his normal coronary arteries preoperatively and lack of anginal symptoms postoperatively, I would not recommend repeat catheterization at this time. Once the patient's hemoglobin has normalized, he has gone through cardiac rehab , we will can reconsider reechoing him to determine if his LV function has improved. His heart rate still remains elevated, despite several days of Coreg and amiodarone therapy. Hopefully once his anemia improves his heart rate will slow down. In the meantime we will try to increase his Coreg to 6.25 mg's p.o. twice daily and assuming his blood pressure is okay we will continue this dosage. In the meantime we will continue with a 1500 cc fluid restriction. Please max concentrate all IV drips. 2. Atrial fibrillation/atrial flutter: Continue amiodarone 200 mg p.o. daily. He currently appears to be an ectopic atrial rhythm versus normal sinus rhythm with first-degree AV block. Continue anticoagulation. Once the patient has been loaded with amiodarone for 3 consecutive weeks and his INR is above 2.0 for 4 consecutive weeks, we will proceed with DC cardioversion. Patient appears to have an atypical atrial flutter, which may chemically convert with diuresis, beta-poornima, and amiodarone therapy. INR is therapeutic. 3. Recommend physical therapy/OT therapy for assessment of placements back at inpatient rehab versus snf. He will follow-up with me going forward. Code Visit Inpatient E&M: [id number] Subs Hosp L2
[2017-07-28 12:01] LABS: Bedside Glucose 212 mg/dL (70-110)
[2017-07-28 16:21] LABS: Bedside Glucose 184 mg/dL (70-110)
[2017-07-28] MEDS: 0.9% NaCl Peripheral Flush Adult/Peds IV (20:23)
--- NOTE | 2017-07-28 21:51 | NURSING ---
Pt satting 88% on RA, placed on 2L NC, now satting 97%
[2017-07-28 22:01] LABS: Bedside Glucose 205 mg/dL (70-110)
[2017-07-29] VITALS (15 sets, daily range): BP systolic 98–123; BP diastolic 57–85; PULSE 53–89; RESP 15–20; TEMP 36.3–36.7; O2SAT 84–98
[2017-07-29] MEDS: Ipratropium/Albuterol Sulfate 3 ML AMPUL.NEB INHALATION ×6 (03:27→23:36)
[2017-07-29 06:15] LABS: International Normalized Ratio 2.1; Prothrombin Time (Protime)PT. 22.3 SECONDS (11.7-14.9)
[2017-07-29 06:26] LABS: BUN 22 mg/dL (7-18); BUN/Creat Ratio 15.3 RATIO (10-20); Calcium,Total 8.6 mg/dL (8.5-10.1); Chloride 95 mmol/L (98-107); Creatinine, Serum 1.44 mg/dL (0.70-1.30); EST Glomerular Filtration Rate 51 mL/min (>60); Est Glom Filt Rate - Afr Amer 62 mL/min (>60); Estimated Creatinine Clearance 37.11 ml/min; Glucose 122 mg/dL (74-106); Potassium 3.2 mmol/L (3.5-5.1); Sodium Level 137 mmol/L (136-145)
[2017-07-29 06:27] LABS: Anion Gap 5 (5-15)
[2017-07-29 07:16] LABS: Bedside Glucose 129 mg/dL (70-110)
[2017-07-29] MEDS: Iron Polysaccharide Complex 150 MG CAPSULE PO (08:47)
[2017-07-29] MEDS: guaiFENesin 1,200 MG Tablet 1200 MG PO ×2 (08:47→21:05)
[2017-07-29] MEDS: Amiodarone 200 MG Tablet PO (08:48)
[2017-07-29] MEDS: guaiFENesin/Codeine 5 ML UDC PO ×3 (08:58→22:53)
[2017-07-29] MEDS: Spironolactone 25 MG Tablet 12.5 MG PO (08:59)
[2017-07-29] MEDS: Aspirin 81 MG TAB.CHEW PO (08:59)
[2017-07-29] MEDS: Polyethylene Glycol 3350 17 GM PACKET PO (08:59)
[2017-07-29] MEDS: Furosemide 40 MG Tablet PO ×2 (08:59→18:20)
[2017-07-29] MEDS: Multivitamins,Therapeutic Tablet 1 TABLET PO (08:59)
--- NOTE | 2017-07-29 09:40 | PN.CARD_ITS ---
Subjectve: Patient continues to improve and looks much better today. Heart rate is much better after increasing Coreg yesterday. Telemetry still shows atrial flutter with controlled ventricular response. Awaiting transfer to rehab center. Objective: Vital Signs Temp Pulse Resp BP Pulse Ox 98.0 F 53 L 15 108/57 L 98 07/29/17 08:45 07/29/17 08:45 07/29/17 08:45 07/29/17 08:45 07/29/17 08:45 Oxygen Flow Rate 2 Oxygen Delivery Method Room Air Weight: 171 lb 11.841 oz Body Mass Index (BMI) 29.5 Intake and Output for Last 24 Hours 07/27/17 07/28/17 07/29/17 23:59 23:59 23:59 Intake Total 1360 / 1360 980 / 980 Output Total 1700 / 1700 1395 / 1395 350 / 350 Balance -340 / -340 -415 / -415 -350 / -350 General: Awake, Alert, Oriented x 3 HEENT: PERRL, EOMI, Sclera Non Icteric Neck: Supple, Good ROM, No Lymph Node Enlargement Lungs: Clear to auscultation Cardiovascular: Irregular Rhythm, Normal S1, Normal S2, No Murmurs, No Rubs, No Gallops Murmur Murmur: Grade 2/6, Crescendo-Decrescendo Vascular: No Carotid Bruits, Normal Femoral Pulses, Normal Radial Pulses, Normal Dorsalis Pedal Pulse, Normal Posterior Tibial Pulses Abdomen: Bowel Sounds Present, Soft, Non Tender, No HSM, No Organomegaly Extremities: No Cyanosis, No Clubbing, No edema Neurological: No Focal Motor or Sensory Deficit 07/29/17 05:52: PT 22.3 H, INR 2.1 07/29/17 05:52: Sodium 137, Potassium 3.2 L, Chloride 95 L, Carbon Dioxide 37.0 H, Anion Gap 5, BUN 22 H, Creatinine 1.44 H, Est GFR (MDRD) Af Amer 62, Est GFR (MDRD) Non-Af 51 L, BUN/Creatinine Ratio 15.3, Glucose 122 H, Calcium 8.6 Rhythm: EKG: ECHO: Stress Test: Cardiac Cath: PCI: CT Surgery: Holter monitor: EPS: PPM: CXR: Chest CT Scan: Assessment/Plan 1. LV dysfunction: The patient has had acute deterioration of his LV function after his aortic valve replacement and mitral valve repair, and presented with congestive heart failure with bilateral pleural effusions, shortness of breath, and lower extremity edema. Patient is diuresed approximately 4 L since admission, losing approximately 8 pounds. His breathing is much better, and is tolerating p.o. Lasix well. He has no edema. Recommend continuing Lasix 40 mill grams p.o. twice daily and spironolactone 12.5 mg daily. His BUN and creatinine have remained stable. Given the patient's LV dysfunction he will require lifelong anticoagulation to avoid LV thrombus formation. Given his normal coronary arteries preoperatively and lack of anginal symptoms postoperatively, I would not recommend repeat catheterization at this time. Once the patient's hemoglobin has normalized, he has gone through cardiac rehab , we will can reconsider reechoing him to determine if his LV function has improved. His heart rate still remains elevated, despite several days of Coreg and amiodarone therapy. Hopefully once his anemia improves his heart rate will slow down. In the meantime we will try to increase his Coreg to 6.25 mg's p.o. twice daily and assuming his blood pressure is okay we will continue this dosage. In the meantime we will continue with a 1500 cc fluid restriction. Please max concentrate all IV drips. 2. Atrial fibrillation/atrial flutter: Continue amiodarone 200 mg p.o. daily. He currently appears to be an ectopic atrial rhythm versus normal sinus rhythm with first-degree AV block. Continue anticoagulation. Once the patient has been loaded with amiodarone for 3 consecutive weeks and his INR is above 2.0 for 4 consecutive weeks, we will proceed with DC cardioversion. Patient appears to have an atypical atrial flutter, which may chemically convert with diuresis, beta-poornima, and amiodarone therapy. INR is therapeutic. 3. Recommend physical therapy/OT therapy for assessment of placements back at inpatient rehab versus senior living. He will follow-up with me going forward. Will sign off. Call for any questions. Code Visit Inpatient E&M: [id number] Subs Hosp L2
[2017-07-29] MEDS: Carvedilol 6.25 MG Tablet PO (10:31)
[2017-07-29 11:27] LABS: Bedside Glucose 263 mg/dL (70-110)
--- NOTE | 2017-07-29 11:49 | PCM.PN.HOSP ---
Patient Problems: Active and Suspected Problems (Last Reviewed 05/17/17 @ 15:28 by Trice Bowling) Acute respiratory failure with hypercapnia (Acute) Heart failure with reduced ejection fraction (Acute) Metabolic encephalopathy (Acute) Subjective: Breathing well. Was put on oxygen for hypoxia, but currently w/o oxygen and denies shortness of breath. Vitals/I&O's: Vital Signs Temp Pulse Resp BP Pulse Ox 36.7 C 89 18 108/57 L 98 07/29/17 08:45 07/29/17 11:09 07/29/17 11:07 07/29/17 08:45 07/29/17 08:45 Oxygen Flow Rate 2 Oxygen Delivery Method Room Air Weight: 77.9 kg Body Mass Index (BMI) 29.5 Intake and Output for Last 24 Hours 07/27/17 07/28/17 07/29/17 23:59 23:59 23:59 Intake Total 1360 / 1360 980 / 980 230 / 230 Output Total 1700 / 1700 1395 / 1395 530 / 530 Balance -340 / -340 -415 / -415 -300 / -300 General: Alert, Cooperative, No apparent distress, - - no respiratory distress, no conversational dyspnea HEENT: Atraumatic, Normocephalic Oral: Moist Mucosa Neck: Thyroid Normal Size and Texture, JVD, Right Lungs: Normal air movement, No rhonchi, No wheeze Cardiovascular: Regular rate, Regular Rhythm, Normal S1, Normal S2, No murmurs Abdomen: Bowel Sounds Present, Soft, Non Tender, Non-Distended Extremities: No edema, No Calf Tenderness Skin: No rashes, No breakdown Psych/Mental Status: Normal Affect, Appropriate Laboratory Results 07/28/17 11:40: POC Glucose 212 H 07/28/17 16:12: POC Glucose 184 H 07/28/17 21:29: POC Glucose 205 H 07/29/17 05:52: PT 22.3 H, INR 2.1 07/29/17 05:52: Sodium 137, Potassium 3.2 L, Chloride 95 L, Carbon Dioxide 37.0 H, Anion Gap 5, BUN 22 H, Creatinine 1.44 H, Estim Creat Clear Calc 37.11, Est GFR (MDRD) Af Amer 62, Est GFR (MDRD) Non-Af 51 L, BUN/Creatinine Ratio 15.3, Glucose 122 H, Calcium 8.6 07/29/17 06:40: POC Glucose 129 H 07/29/17 11:19: POC Glucose 263 H Current Medications Acetaminophen (Tylenol) 650 mg PO Q6H PRN PRN Reason: MILD-MOD PAIN (1-510) Albuterol/Ipratropium (Duoneb) 3 ml INHALATION Q4H.RT [facility] Last Admin: 07/29/17 11:07 Dose: 3 ml Amiodarone HCl (Cordarone) 200 mg PO DAILY [facility] Last Admin: 07/29/17 08:48 Dose: 200 mg Aspirin (Aspirin, Baby) 81 mg PO DAILY@0800 [facility] Last Admin: 07/29/17 08:59 Dose: 81 mg Benzonatate (Tessalon Perle) 100 mg PO 4X/DAY PRN PRN PRN Reason: COUGH Last Admin: 07/27/17 21:24 Dose: 100 mg Carvedilol (Coreg) 6.25 mg PO BID [facility] Last Admin: 07/29/17 10:31 Dose: 6.25 mg Dextrose (D50w Syringe) 0 gm IV X1 PRN; Protocol PRN Reason: Hypoglycemia Furosemide (Lasix) 40 mg PO BID@1000,1800 [facility] Last Admin: 07/29/17 08:59 Dose: 40 mg Glucagon () 1 mg IM .X1 PRN PRN Reason: Hypoglycemia Guaifenesin (Mucinex) 1,200 mg PO BID [facility] Last Admin: 07/29/17 08:47 Dose: 1,200 mg Guaifenesin/Codeine Phosphate (Robitussin Ac) 5 - 10 ml PO Q6H PRN PRN PRN Reason: COUGH Last Admin: 07/29/17 08:58 Dose: 5 ml Insulin Aspart (Novolog Flexpen (Bkc)) 0 units SC ACHS [facility] PRN Reason: Protocol Last Admin: 07/29/17 11:22 Dose: 3 u Insulin Detemir (Levemir (Bkc)) 5 units SC BID [facility] Last Admin: 07/29/17 08:48 Dose: 5 u Magnesium Hydroxide (Milk Of Magnesia) 30 ml PO DAILY PRN PRN PRN Reason: Constipation Last Admin: 07/27/17 09:46 Dose: 30 ml Multivitamins (Multivitamin) 1 tablet PO DAILY@0800 [facility] Last Admin: 07/29/17 08:59 Dose: 1 tablet Ondansetron HCl (Zofran) 4 mg IV Q8H PRN PRN PRN Reason: NAUSEA Last Admin: 07/28/17 09:04 Dose: 4 mg Polyethylene Glycol (Miralax) 17 gm PO DAILY [facility] Last Admin: 07/29/17 08:59 Dose: 17 gm Polysaccharide Iron Complex (Ferrex 150) 150 mg PO DAILYCM [facility] Last Admin: 07/29/17 08:47 Dose: 150 mg Sodium Chloride () 5 - 30 ml IV UD PRN PRN Reason: SALINE FLUSH Last Admin: 07/28/17 20:23 Dose: 10 ml Spironolactone (Aldactone) 12.5 mg PO DAILY [facility] Last Admin: 07/29/17 08:59 Dose: 12.5 mg Warfarin Sodium (Coumadin (Pbkc)) 1 mg PO DAILY@1700 [facility] Last Admin: 07/28/17 18:05 Dose: 1 mg Assessment/Plan Active and Suspected Problems (Last Reviewed 05/17/17 @ 15:28 by Trice Bowling) Acute respiratory failure with hypercapnia (Acute) Heart failure with reduced ejection fraction (Acute) Metabolic encephalopathy (Acute) 1. Acute hypercapnic respiratory failure [place] to be from my standpoint to be related with heart failure Patient being treated for a possible pneumonia as well as heart failure. Much improved at this time. Taken off of all oxygen and doing well. 2. Acute heart failure with reduced ejection fraction Ejection fraction now down to 15-20% from 45-50% on 05/02/2017. Patient has a LifeVest Change lasix to PO given worsening kidney function. follow up with cardiology 3. Status post aortic valve replacement Patient did have a severe aortic stenosis prior to that. 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 4. Metabolic encephalopathy Secondary to CO2 narcosis Treatments the underlying process and evaluate. Hold sedating medications. Resolved 5. Atrial fibrillation: Patient is anticoagulated on Coumadin. On amiodarone 6. DVT prophylaxis: Patient is anticoagulated. 7. CHRIST Suspect prerenal due to overdiuresis Follow up in am lasix changed over to PO. improved today. 8. Disposition pending precertification, not back today, hopefully 07/30 Avoidable day #3 Pt transferred to med surg on 07/28 Code Visit Inpatient E&M: [id number] Subs Hosp L2
--- NOTE | 2017-07-29 11:52 | PN_ITS ---
Patient Problems: Active and Suspected Problems (Last Reviewed 05/17/17 @ 15:28 by Trice Bowling) Acute respiratory failure with hypercapnia (Acute) Heart failure with reduced ejection fraction (Acute) Metabolic encephalopathy (Acute) Subjective: Breathing well. Was put on oxygen for hypoxia, but currently w/o oxygen and denies shortness of breath. Vitals/I&O's: Vital Signs Temp Pulse Resp BP Pulse Ox 36.7 C 89 18 108/57 L 98 07/29/17 08:45 07/29/17 11:09 07/29/17 11:07 07/29/17 08:45 07/29/17 08:45 Oxygen Flow Rate 2 Oxygen Delivery Method Room Air Weight: 77.9 kg Body Mass Index (BMI) 29.5 Intake and Output for Last 24 Hours 07/27/17 07/28/17 07/29/17 23:59 23:59 23:59 Intake Total 1360 / 1360 980 / 980 230 / 230 Output Total 1700 / 1700 1395 / 1395 530 / 530 Balance -340 / -340 -415 / -415 -300 / -300 General: Alert, Cooperative, No apparent distress, - - no respiratory distress, no conversational dyspnea HEENT: Atraumatic, Normocephalic Oral: Moist Mucosa Neck: Thyroid Normal Size and Texture, JVD, Right Lungs: Normal air movement, No rhonchi, No wheeze Cardiovascular: Regular rate, Regular Rhythm, Normal S1, Normal S2, No murmurs Abdomen: Bowel Sounds Present, Soft, Non Tender, Non-Distended Extremities: No edema, No Calf Tenderness Skin: No rashes, No breakdown Psych/Mental Status: Normal Affect, Appropriate Laboratory Results 07/28/17 11:40: POC Glucose 212 H 07/28/17 16:12: POC Glucose 184 H 07/28/17 21:29: POC Glucose 205 H 07/29/17 05:52: PT 22.3 H, INR 2.1 07/29/17 05:52: Sodium 137, Potassium 3.2 L, Chloride 95 L, Carbon Dioxide 37.0 H, Anion Gap 5, BUN 22 H, Creatinine 1.44 H, Estim Creat Clear Calc 37.11, Est GFR (MDRD) Af Amer 62, Est GFR (MDRD) Non-Af 51 L, BUN/Creatinine Ratio 15.3, Glucose 122 H, Calcium 8.6 07/29/17 06:40: POC Glucose 129 H 07/29/17 11:19: POC Glucose 263 H Current Medications Acetaminophen (Tylenol) 650 mg PO Q6H PRN PRN Reason: MILD-MOD PAIN (1-510) Albuterol/Ipratropium (Duoneb) 3 ml INHALATION Q4H.RT [facility] Last Admin: 07/29/17 11:07 Dose: 3 ml Amiodarone HCl (Cordarone) 200 mg PO DAILY [facility] Last Admin: 07/29/17 08:48 Dose: 200 mg Aspirin (Aspirin, Baby) 81 mg PO DAILY@0800 [facility] Last Admin: 07/29/17 08:59 Dose: 81 mg Benzonatate (Tessalon Perle) 100 mg PO 4X/DAY PRN PRN PRN Reason: COUGH Last Admin: 07/27/17 21:24 Dose: 100 mg Carvedilol (Coreg) 6.25 mg PO BID [facility] Last Admin: 07/29/17 10:31 Dose: 6.25 mg Dextrose (D50w Syringe) 0 gm IV X1 PRN; Protocol PRN Reason: Hypoglycemia Furosemide (Lasix) 40 mg PO BID@1000,1800 [facility] Last Admin: 07/29/17 08:59 Dose: 40 mg Glucagon () 1 mg IM .X1 PRN PRN Reason: Hypoglycemia Guaifenesin (Mucinex) 1,200 mg PO BID [facility] Last Admin: 07/29/17 08:47 Dose: 1,200 mg Guaifenesin/Codeine Phosphate (Robitussin Ac) 5 - 10 ml PO Q6H PRN PRN PRN Reason: COUGH Last Admin: 07/29/17 08:58 Dose: 5 ml Insulin Aspart (Novolog Flexpen (Bkc)) 0 units SC ACHS [facility] PRN Reason: Protocol Last Admin: 07/29/17 11:22 Dose: 3 u Insulin Detemir (Levemir (Bkc)) 5 units SC BID [facility] Last Admin: 07/29/17 08:48 Dose: 5 u Magnesium Hydroxide (Milk Of Magnesia) 30 ml PO DAILY PRN PRN PRN Reason: Constipation Last Admin: 07/27/17 09:46 Dose: 30 ml Multivitamins (Multivitamin) 1 tablet PO DAILY@0800 [facility] Last Admin: 07/29/17 08:59 Dose: 1 tablet Ondansetron HCl (Zofran) 4 mg IV Q8H PRN PRN PRN Reason: NAUSEA Last Admin: 07/28/17 09:04 Dose: 4 mg Polyethylene Glycol (Miralax) 17 gm PO DAILY [facility] Last Admin: 07/29/17 08:59 Dose: 17 gm Polysaccharide Iron Complex (Ferrex 150) 150 mg PO DAILYCM [facility] Last Admin: 07/29/17 08:47 Dose: 150 mg Sodium Chloride () 5 - 30 ml IV UD PRN PRN Reason: SALINE FLUSH Last Admin: 07/28/17 20:23 Dose: 10 ml Spironolactone (Aldactone) 12.5 mg PO DAILY [facility] Last Admin: 07/29/17 08:59 Dose: 12.5 mg Warfarin Sodium (Coumadin (Pbkc)) 1 mg PO DAILY@1700 [facility] Last Admin: 07/28/17 18:05 Dose: 1 mg Assessment/Plan Active and Suspected Problems (Last Reviewed 05/17/17 @ 15:28 by Trice Bowling) Acute respiratory failure with hypercapnia (Acute) Heart failure with reduced ejection fraction (Acute) Metabolic encephalopathy (Acute) 1. Acute hypercapnic respiratory failure * [place] to be from my standpoint to be related with heart failure * Patient being treated for a possible pneumonia as well as heart failure. * Much improved at this time. Taken off of all oxygen and doing well. 2. Acute heart failure with reduced ejection fraction * Ejection fraction now down to 15-20% from 45-50% on 05/02/2017. * Patient has a LifeVest * Change lasix to PO given worsening kidney function. * follow up with cardiology 3. Status post aortic valve replacement * Patient did have a severe aortic stenosis prior to that. 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 4. Metabolic encephalopathy * Secondary to CO2 narcosis * Treatments the underlying process and evaluate. Hold sedating medications. * Resolved 5. Atrial fibrillation: * Patient is anticoagulated on Coumadin. * On amiodarone 6. DVT prophylaxis: Patient is anticoagulated. 7. CHRIST * Suspect prerenal due to overdiuresis * Follow up in am * lasix changed over to PO. * improved today. 8. Disposition * pending precertification, not back today, hopefully 07/30 * Avoidable day #3 Pt transferred to med surg on 07/28 Code Visit Inpatient E&M: [id number] Subs Hosp L2
[2017-07-29 16:31] LABS: Bedside Glucose 173 mg/dL (70-110)
[2017-07-29 21:16] LABS: Bedside Glucose 175 mg/dL (70-110)
[2017-07-29] MEDS: Benzonatate 100 MG Capsule PO (22:53)
[2017-07-30] VITALS (10 sets, daily range): BP systolic 92–113; BP diastolic 59–73; PULSE 58–83; RESP 14–20; TEMP 36.3–36.9; O2SAT 93–100
[2017-07-30] MEDS: Ipratropium/Albuterol Sulfate 3 ML AMPUL.NEB INHALATION ×5 (03:31→20:43)
[2017-07-30] MEDS: Benzonatate 100 MG Capsule PO (03:55)
[2017-07-30 06:45] LABS: International Normalized Ratio 1.8; Prothrombin Time (Protime)PT. 20.4 SECONDS (11.7-14.9)
[2017-07-30 06:46] LABS: Bedside Glucose 122 mg/dL (70-110)
[2017-07-30 06:53] LABS: Anion Gap 4 (5-15); BUN 24 mg/dL (7-18); BUN/Creat Ratio 14.5 RATIO (10-20); Calcium,Total 8.3 mg/dL (8.5-10.1); Chloride 96 mmol/L (98-107); Creatinine, Serum 1.65 mg/dL (0.70-1.30); EST Glomerular Filtration Rate 43 mL/min (>60); Est Glom Filt Rate - Afr Amer 53 mL/min (>60); Estimated Creatinine Clearance 32.39 ml/min; Glucose 116 mg/dL (74-106); Magnesium 2.2 mg/dL (1.6-2.6); Potassium 3.5 mmol/L (3.5-5.1); Sodium Level 137 mmol/L (136-145)
[2017-07-30] MEDS: Polyethylene Glycol 3350 17 GM PACKET PO (09:39)
[2017-07-30] MEDS: Spironolactone 25 MG Tablet 12.5 MG PO (09:39)
[2017-07-30] MEDS: Aspirin 81 MG TAB.CHEW PO (09:39)
[2017-07-30] MEDS: Multivitamins,Therapeutic Tablet 1 TABLET PO (09:39)
[2017-07-30] MEDS: guaiFENesin/Codeine 5 ML UDC PO ×2 (09:39→21:36)
[2017-07-30] MEDS: Magnesium Hydroxide 30 ML UDC PO (09:39)
[2017-07-30] MEDS: Furosemide 40 MG Tablet PO ×2 (09:40→17:06)
[2017-07-30] MEDS: Amiodarone 200 MG Tablet PO (09:40)
[2017-07-30] MEDS: Carvedilol 6.25 MG Tablet PO ×2 (09:40→21:20)
[2017-07-30] MEDS: Iron Polysaccharide Complex 150 MG CAPSULE PO (10:34)
[2017-07-30] MEDS: guaiFENesin 1,200 MG Tablet 1200 MG PO ×2 (10:34→21:21)
--- NOTE | 2017-07-30 12:21 | PCM.TXEXTCAR ---
- Diet 07/23/17 09:57 Diet: Cardiac/Low Cholesterol Food consistency:: Regular Liquid Consistency:: Regular/Thin Is pt able to select menu?: Yes - Routine Orders/Code Status Suppository Type: Dulcolax 10mg Suppository Frequency: Daily PRN Routine Lab Work: CBC, BMP, INR Code Status: Full Code - Wound(s) RT side forehead Wound Type: Abrasion Upper ABD x4 Wound Type: Surgical Incision Chest Wound Type: Surgical Incision Coccyx Wound Type: Pressure Injury - Therapies Weight Bearing: Full weight bearing Physical Therapy: Eval and Treat Occupational Therapy: Eval and Treat - Problem/Diagnosis (1) Acute respiratory failure with hypercapnia Status: Acute Current Visit: Yes (2) Heart failure with reduced ejection fraction Status: Acute Current Visit: Yes (3) Acute renal failure superimposed on stage 3 chronic kidney disease Status: Acute Current Visit: No (4) Metabolic encephalopathy Status: Acute Current Visit: Yes (5) Diabetes mellitus Status: Chronic Current Visit: No (6) H/O aortic valve replacement Status: Chronic Current Visit: Yes (7) Cardiomyopathy in disease classified elsewhere Status: Chronic Current Visit: No (8) Hypertension Status: Chronic Current Visit: No (9) Critical aortic valve stenosis Status: Resolved Comment: Reported replacement at [facility] June 2017 Current Visit: No - Allergies/Procedures Done in Hospital Allergies/Adverse Reactions: Allergies No Known Allergies Allergy (Verified 07/23/17 06:54) Procedures: 2-D Echocardiogram - Type of Care/Length of Stay Estimated LOS: Convalescent Care Less Than 30 days Type of Care Needed: Skilled Rehab Potential: Fair Prognosis: Fair - Additional Orders/Day of Discharge Day of Discharge: 07/27/17 - Dietary and Speech Recommendations Dietitian Recommendations/Changes: Rec diet change to Carbohydrate Controlled, Cardiac/Low Cholesterol, Low Sodium diet w/ fluid restriction as needed. Will provide 120 mL Glucerna w/ meals for additional calories/protein if consumed. - Follow Up Care Primary Care Physician: Dusty Almanza MD [Primary Care Provider] - Please Follow Up With: Asif Higgins MD When: 2-4 weeks Please Follow Up With: Xavier Mckeon MD - Pulmonology When: 1-2 months
--- NOTE | 2017-07-30 14:25 | PCM.DC.SUM ---
<William Bradshaw - Last Filed: 07/30/17 14:25> Discharge Date and Diagnosis - Problem List Patient Problems: Active and Suspected Problems (Last Reviewed 05/17/17 @ 15:28 by Trice Bowling) Acute respiratory failure with hypercapnia (Acute) Heart failure with reduced ejection fraction (Acute) Metabolic encephalopathy (Acute) Date of Admission: 07/23/17 Date of Discharge: 07/30/17 - Primary Discharge Diagnosis Acute hypercapneic respiratory failure 2/2 Acute systolic CHF Acute metabolic encephalopathy 2/2 CO2 narcosis S/p bioprosthetic AV Afib/flutter Debility DMt2 - Secondary Discharge Diagnosis Chronic Problems (Last Reviewed 05/17/17 @ 15:28 by Trice Bowling) Mitral valve insufficiency (Chronic) Repair [facility] 06/2017 Diabetes mellitus (Chronic) Chronic kidney disease (Chronic) H/O aortic valve replacement (Chronic) 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 The estimated ejection fraction is 15-20 %. There is moderate to severe global hypokinesis of the left ventricle. Mild mitral valve stenosis. An annuloplasty ring is noted in the mitral position. Mild (1+) tricuspid valve insufficiency. Right ventricular systolic pressure estimated to be 30 mmHg. Bioprosthetic aortic valve. The inferior vena cava is dilated Moderate size left pleural effusion. Pt appears to be in atrial fibrillation. Compared to echo report dated 05/03/2017, Mitral ring and nl appearing bioprosthetic AVR is now in place with nromal gradients. LV Function has deteriorated from 40% to 15%. Left pleural effusion is now noted. CT/Brain/Head without Contrast IMPRESSION: Chronic involutional changes of the brain. RAD/Chest 1 View (Portable) IMPRESSION: Progressive bilateral airspace disease suggestive of progressive infiltration versus CHF. Small bilateral pleural effusions. Follow-up recommende Consults: Mike - pulm, Ronaldo - cardio. Operations: cholecystecomy - Laparoscopic converted to open Procedures: 2-D Echocardiogram Summary of Care Provided: Physical exam on day of discharge: General: Resting comfortably NAD Psych: A/Ox3 normal affect HEENT: PRAKASH AT NC Neck: Supple NT CV: RRR no m/t/r/g/h Resp: CTA Abd: [id number] Soft NT no guarding or rigidity Ext: DP2+= no edema Skin: W/D normal turgor Lymph/Heme: No active bleeding or adenopathy Neuro: CN2-12 intact Hospital course: The patient is a 77 year old M who presented to the ER with increased confusion. He had an AV replacement with bioprosthetic valve about 1 month prior, DM, Afib/flutter. He had been started on outpatient abx for suspected pna the day prior. He was found to be in respiratory acidosis with pH of 7.21 and elevated PCO2. He was placed on BiPAP and admitted to the hospital. CXR was consistent with CHF. He was placed on diuresis. Pt underwent echocardiogram with significantly reduced EF from 45-50 to 15-20%. He already had a life vest in place. He was transitioned to PO lasix as his renal function deteriorated on IV lasix. His respiratory status improved and he was weaned off all O2. He had no further SOB. Skilled care was recommended for debility. He was transferred to TCU in stable condition when approved. He will need to follow up with Cardiology in 1-2 weeks. He is discharged This patient was seen by William Bradshaw PA-C under the supervision of Doctor Caputo. [] Discharge Diet: Low fat/ Low Cholesterol, 6 Cup Fluid Restriction, 2000 mg Sodium Diet Discharge Activity: Return to Normal Activity Call your doctor if you observe: Fever of 101 or Higher, Shortness of breath Home Medications: Medications to take at Discharge Multivitamins,Therapeutic [Multivitamin] 1 tab PO DAILY 07/02/14 Acetaminophen 650 mg PO Q6H PRN 07/18/17 Albuterol Inhaler [Ventolin Hfa] 2 puff INHALATION Q4H PRN PRN 07/18/17 Aspirin [Aspirin, Baby] 81 mg PO DAILY@0800 07/18/17 Insulin Detemir [Levemir FlexPen] 5 units SC BID 07/23/17 Iron Polysaccharide Complex [Ferrex 150] 150 mg PO DAILYCM 07/23/17 Polyethylene Glycol 3350 [Miralax] 17 gm PO DAILY 07/23/17 Senna [Senokot] 1 tablet PO BID 07/23/17 Trazodone HCl [Desyrel] 50 mg PO QHS 07/23/17 Warfarin [Coumadin] 1 mg PO DAILY 07/23/17 Amiodarone HCl [Cordarone] 200 mg PO DAILY tablet 07/27/17 Benzonatate [Tessalon Perle] 100 mg PO 4X/DAY PRN PRN capsule 07/27/17 Carvedilol [Coreg (Beta Severo)] 3.125 mg PO BID tablet 07/27/17 Furosemide [Lasix] 40 mg PO BID@1000,1800 tablet 07/27/17 Guaifenesin/Codeine [Robitussin AC] 5 - 10 ml PO Q6H PRN PRN #250 ml 07/27/17 Insulin Aspart [Novolog Flexpen] See Protocol SC ACHS flexpen 07/27/17 Spironolactone [Aldactone] 12.5 mg PO DAILY tablet 07/27/17 Magnesium Hydroxide [Milk Of Magnesia] 30 ml PO DAILY PRN PRN udc 07/30/17 Following Prescrptions Were Given to Patient: Guaifenesin/Codeine [Robitussin AC] 5 - 10 ml PO Q6H PRN PRN #250 ml PRN Reason: COUGH Primary Care Physician: Dusty Almanza MD [Primary Care Provider] - Please Follow Up With: Asif Higgins MD When: 2-4 weeks Please Follow Up With: Xavier Mckeon MD - Pulmonology When: 1-2 months [facility] Meaningful Use Info Meaningful Use Diagnoses (Choose all that apply): CHF - CHF DIMAS/ARB ordered at discharge?: No Reason DIMAS/ARB not ordered?: Worsening renal disease Documented LVEF (%): 10 <Ramsey Caputo - Last Filed: 07/30/17 15:39> Discharge Date and Diagnosis - Primary Discharge Diagnosis Active and Suspected Problems (Last Reviewed 05/17/17 @ 15:28 by Trice Bowling) Acute respiratory failure with hypercapnia (Acute) Heart failure with reduced ejection fraction (Acute) Metabolic encephalopathy (Acute) - Secondary Discharge Diagnosis Chronic Problems (Last Reviewed 05/17/17 @ 15:28 by Trice Bowling) Mitral valve insufficiency (Chronic) Repair [facility] 06/2017 Diabetes mellitus (Chronic) Chronic kidney disease (Chronic) H/O aortic valve replacement (Chronic) 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 Patient was placed on noninvasive ventilation BiPAP echo obtained during his hospital stay demonstrated EF of 15-20% significant decrease from a previous EF of 45-50%. Managed on Lasix with improvement has a LifeVest did continue and [facility] Details of patient hospital stay as elicited above by William Bradshaw Total time spent on examining patient reviewing the history as well as management orders and discharge instructions: 35 minutes. Code Visit Inpatient E&M: [id number] Disch Hosp
--- NOTE | 2017-07-30 14:39 | DS.PCM_ITS ---
<William Bradshaw - Last Filed: 07/30/17 14:25> Discharge Date and Diagnosis - Problem List Patient Problems: Active and Suspected Problems (Last Reviewed 05/17/17 @ 15:28 by Trice Bowling) Acute respiratory failure with hypercapnia (Acute) Heart failure with reduced ejection fraction (Acute) Metabolic encephalopathy (Acute) Date of Admission: 07/23/17 Date of Discharge: 07/30/17 - Primary Discharge Diagnosis Acute hypercapneic respiratory failure 2/2 Acute systolic CHF Acute metabolic encephalopathy 2/2 CO2 narcosis S/p bioprosthetic AV Afib/flutter Debility DMt2 - Secondary Discharge Diagnosis Chronic Problems (Last Reviewed 05/17/17 @ 15:28 by Trice Bowling) Mitral valve insufficiency (Chronic) Repair [facility] 06/2017 Diabetes mellitus (Chronic) Chronic kidney disease (Chronic) H/O aortic valve replacement (Chronic) 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 The estimated ejection fraction is 15-20 %. There is moderate to severe global hypokinesis of the left ventricle. Mild mitral valve stenosis. An annuloplasty ring is noted in the mitral position. Mild (1+) tricuspid valve insufficiency. Right ventricular systolic pressure estimated to be 30 mmHg. Bioprosthetic aortic valve. The inferior vena cava is dilated Moderate size left pleural effusion. Pt appears to be in atrial fibrillation. Compared to echo report dated 05/03/2017, Mitral ring and nl appearing bioprosthetic AVR is now in place with nromal gradients. LV Function has deteriorated from 40% to 15%. Left pleural effusion is now noted. CT/Brain/Head without Contrast IMPRESSION: Chronic involutional changes of the brain. RAD/Chest 1 View (Portable) IMPRESSION: Progressive bilateral airspace disease suggestive of progressive infiltration versus CHF. Small bilateral pleural effusions. Follow-up recommende Consults: Mike - pulm, Ronaldo - cardio. Operations: cholecystecomy - Laparoscopic converted to open Procedures: 2-D Echocardiogram Summary of Care Provided: Physical exam on day of discharge: General: Resting comfortably NAD Psych: A/Ox3 normal affect HEENT: PRAKASH AT NC Neck: Supple NT CV: RRR no m/t/r/g/h Resp: CTA Abd: [id number] Soft NT no guarding or rigidity Ext: DP2+= no edema Skin: W/D normal turgor Lymph/Heme: No active bleeding or adenopathy Neuro: CN2-12 intact Hospital course: The patient is a 77 year old M who presented to the ER with increased confusion. He had an AV replacement with bioprosthetic valve about 1 month prior , DM, Afib/flutter. He had been started on outpatient abx for suspected pna the day prior. He was found to be in respiratory acidosis with pH of 7.21 and elevated PCO2. He was placed on BiPAP and admitted to the hospital. CXR was consistent with CHF. He was placed on diuresis. Pt underwent echocardiogram with significantly reduced EF from 45-50 to 15-20%. He already had a life vest in place. He was transitioned to PO lasix as his renal function deteriorated on IV lasix. His respiratory status improved and he was weaned off all O2. He had no further SOB. Skilled care was recommended for debility. He was transferred to TCU in stable condition when approved. He will need to follow up with Cardiology in 1-2 weeks. He is discharged This patient was seen by William Bradshaw PA-C under the supervision of Doctor Caputo. [] Discharge Diet: Low fat/ Low Cholesterol, 6 Cup Fluid Restriction, 2000 mg Sodium Diet Discharge Activity: Return to Normal Activity Call your doctor if you observe: Fever of 101 or Higher, Shortness of breath Home Medications: Medications to take at Discharge Multivitamins,Therapeutic [Multivitamin] 1 tab PO DAILY 07/02/14 Acetaminophen 650 mg PO Q6H PRN 07/18/17 Albuterol Inhaler [Ventolin Hfa] 2 puff INHALATION Q4H PRN PRN 07/18/17 Aspirin [Aspirin, Baby] 81 mg PO DAILY@0800 07/18/17 Insulin Detemir [Levemir FlexPen] 5 units SC BID 07/23/17 Iron Polysaccharide Complex [Ferrex 150] 150 mg PO DAILYCM 07/23/17 Polyethylene Glycol 3350 [Miralax] 17 gm PO DAILY 07/23/17 Senna [Senokot] 1 tablet PO BID 07/23/17 Trazodone HCl [Desyrel] 50 mg PO QHS 07/23/17 Warfarin [Coumadin] 1 mg PO DAILY 07/23/17 Amiodarone HCl [Cordarone] 200 mg PO DAILY tablet 07/27/17 Benzonatate [Tessalon Perle] 100 mg PO 4X/DAY PRN PRN capsule 07/27/17 Carvedilol [Coreg (Beta Severo)] 3.125 mg PO BID tablet 07/27/17 Furosemide [Lasix] 40 mg PO BID@1000,1800 tablet 07/27/17 Guaifenesin/Codeine [Robitussin AC] 5 - 10 ml PO Q6H PRN PRN #250 ml 07/27/17 Insulin Aspart [Novolog Flexpen] See Protocol SC ACHS flexpen 07/27/17 Spironolactone [Aldactone] 12.5 mg PO DAILY tablet 07/27/17 Magnesium Hydroxide [Milk Of Magnesia] 30 ml PO DAILY PRN PRN udc 07/30/17 Following Prescrptions Were Given to Patient: Guaifenesin/Codeine [Robitussin AC] 5 - 10 ml PO Q6H PRN PRN #250 ml PRN Reason: COUGH Primary Care Physician: Dusty Almanza MD [Primary Care Provider] - Please Follow Up With: Asif Higgins MD When: 2-4 weeks Please Follow Up With: Xavier Mckeon MD - Pulmonology When: 1-2 months Disposition: Long Term facility Meaningful Use Info Meaningful Use Diagnoses (Choose all that apply): CHF - CHF DIMAS/ARB ordered at discharge?: No Reason DIMAS/ARB not ordered?: Worsening renal disease Documented LVEF (%): 10 <Ramsey Caputo - Last Filed: 07/30/17 15:39> Discharge Date and Diagnosis - Primary Discharge Diagnosis Active and Suspected Problems (Last Reviewed 05/17/17 @ 15:28 by Trice Bowling) Acute respiratory failure with hypercapnia (Acute) Heart failure with reduced ejection fraction (Acute) Metabolic encephalopathy (Acute) - Secondary Discharge Diagnosis Chronic Problems (Last Reviewed 05/17/17 @ 15:28 by Trice Bowling) Mitral valve insufficiency (Chronic) Repair [facility] 06/2017 Diabetes mellitus (Chronic) Chronic kidney disease (Chronic) H/O aortic valve replacement (Chronic) 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 Patient was placed on noninvasive ventilation BiPAP echo obtained during his hospital stay demonstrated EF of 15-20% significant decrease from a previous EF of 45-50%. Managed on Lasix with improvement has a LifeVest did continue and patient was transferred to a half-way facility Details of patient hospital stay as elicited above by William Bradshaw Total time spent on examining patient reviewing the history as well as management orders and discharge instructions: 35 minutes. Code Visit Inpatient E&M: [id number] Disch Hosp
--- NOTE | 2017-07-30 15:15 | CHAPLAIN ---
Type of Pastoral Visit _x__ Initial Visit ___ Follow-up Visit ___ On-call Visit ___ General Patient Visit ___ Spiritual Assessment ___ Family Conference ___ Bereavement ___ Rapid Response ___ Code Blue ___ Other (describe below) Pastoral Care Referral From _x__ Patient ___ Family ___ Nurse ___ Physician ___ Ward Secretary ___ Monotype Setter ___ Other (describe below) Sacrament/Intervention _x__ Active listening ___ Anointing ___ Sikh _x__ Bereavement ___ Communion _x__ Lorin exploration ___ _x__ Life review _x__ Prayer ___ Reconciliation ___ Sacrament of Sick _x__ Supportive presence ___ Wedding ___ Other (describe below) Pastoral Comments discovered patient has had extended stay in hospital and is still processing his 45 year old son's sudden in January; pt is thankful for spouse who has stepped up in big ways at home; pt has some concerns about future ability to work and ability to meet costs of healthcare; pt is member of [employer] and derives support from that; pt is open to future visits when he goes into Rehab unit
[2017-07-30 17:15] LABS: Bedside Glucose 176 mg/dL (70-110)
[2017-07-30 21:06] LABS: Bedside Glucose 197 mg/dL (70-110)
[2017-07-30 22:01] LABS: Bedside Glucose 197 mg/dL (70-110)
[2017-07-31] MEDS: Benzonatate 100 MG Capsule PO (00:30)
[2017-07-31] MEDS: Ipratropium/Albuterol Sulfate 3 ML AMPUL.NEB INHALATION ×2 (01:00→07:42)
[2017-07-31 03:15] VITALS: BP 99/67; PULSE 65; RESP 18; TEMP 36.8; O2SAT 97
[2017-07-31 06:50] LABS: Bedside Glucose 99 mg/dL (70-110)
[2017-07-31 07:42] VITALS: PULSE 74; RESP 16; O2SAT 98
[2017-07-31] MEDS: Aspirin 81 MG TAB.CHEW PO (07:55)
[2017-07-31] MEDS: Multivitamins,Therapeutic Tablet 1 TABLET PO (07:55)
[2017-07-31] MEDS: Iron Polysaccharide Complex 150 MG CAPSULE PO (07:56)
[2017-07-31 08:00] VITALS: BP 102/69; PULSE 73; RESP 16; TEMP 36.8; O2SAT 97
--- NOTE | 2017-07-31 09:13 | PN_ITS ---
<William Bradshaw - Last Filed: 07/31/17 09:04> Subjective: Progress note 07/30/2017. Pt was cleared for DC however ended up not being approved and not being discharged. He has no symptoms this morning. He has no SOB, cough, and his exertional dyspnea had significantly improved. He had no CP. No dizziness/LH/palpitations. His mentation seems normal. - Physical Exam General: Alert, Oriented x3, Cooperative HEENT: Atraumatic, PERRLA, EOMI, Normocephalic Neck: Supple, No JVD, Negative Carotid Bruits Lungs: Clear to auscultation, Normal air movement Cardiovascular: Irregular Rate, Murmur - 3/6 systolic murmur best heard over RSB 2nd intercostal space Abdomen: Bowel Sounds Present, Soft, Non Tender Extremities: No edema, Capillary Refill Less than 3 Seconds Skin: No rashes, No breakdown Musculoskeletal: No Tenderness to Palpation of Joints or Extremities Neurological: Cranial nerves II-XII grossly intact Psych/Mental Status: Normal Affect, Appropriate, Alert and oriented to time, place, person, mood and affect Vital Signs Temp Pulse Resp BP Pulse Ox 98.3 F 73 16 102/69 97 07/31/17 08:00 07/31/17 08:00 07/31/17 08:00 07/31/17 08:00 07/31/17 08:00 Oxygen Flow Rate 1 Oxygen Delivery Method Nasal Cannula Weight: 76.5 kg Body Mass Index (BMI) 29.5 Intake and Output for Last 24 Hours 07/29/17 07/30/17 07/31/17 23:59 23:59 23:59 Intake Total 430 / 430 910 / 910 400 / 400 Output Total 950 / 950 950 / 950 Balance -520 / -520 -40 / -40 400 / 400 POC Glucose 07/31/17 07/30/17 07/30/17 06:43 21:14 17:04 POC Glucose 99 197 H 176 H 07/30/17 11:16 POC Glucose 197 H Assessment/Plan 1. Acute hypercapneic respiratory failure 2/2 Acute systolic congestive heart failure with cardiomyopathy - EF 15-20%. Improved. Mild exertional dyspnea. Off O2. Stable. Lasix PO, aldactone. Continue Coreg. No DIMAS 2/2 renal dysfxn. 2. Metabolic encephalopathy 2/2 CO2 narcosis - resolved 3. CHRIST - stable 4. S/P AV replacement - bioprosthetic 5. AFib/flutter - coumadin, Amio. Follow INR. Cardioversion in [address] Higgins. 6. Debility - to Skilled. Continue PTOT 7. T2DM - continue current insulin therapy. 8. Chronic macrocytic anemia - stable. On PO iron. No recent B12 / Folate studies. Should have checked as outpatient. DVT ppx: coumadin DC planning: Waiting for approval to go to skilled This patient was seen by William Bradshaw PA-C under the supervision of Doctor Harshal. <Ramsey Caputo - Last Filed: 07/31/17 11:57> - Physical Exam Vital Signs Temp Pulse Resp BP Pulse Ox 98.3 F 73 16 102/69 97 07/31/17 08:00 07/31/17 08:00 07/31/17 08:00 07/31/17 08:00 07/31/17 08:00 Oxygen Flow Rate 1 Oxygen Delivery Method Nasal Cannula Weight: 76.5 kg Body Mass Index (BMI) 29.5 Intake and Output for Last 24 Hours 07/29/17 07/30/17 07/31/17 23:59 23:59 23:59 Intake Total 430 / 430 910 / 910 400 / 400 Output Total 950 / 950 950 / 950 Balance -520 / -520 -40 / -40 400 / 400 Laboratory Tests Past 24 Hrs 07/31/17 09:10 PT 19.2 H INR 1.7 POC Glucose 07/31/17 07/30/17 07/30/17 06:43 21:14 17:04 POC Glucose 99 197 H 176 H 07/30/17 11:16 POC Glucose 197 H Assessment/Plan This patient was seen in conjunction with William Bradshaw PA-C. I have independently interviewed and examined the patient and reviewed pertinent historical, laboratory, and other data. Please refer to William Bradshaw PA-C note for details of this patient's presentation, findings, and recommendations. I have reviewed William Bradshaw PA-C note and concur with documented findings. 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 SKIN: No RASH Assessment: 1. Acute hypoxic and hypercapnic respiratory failure secondary to CHF 2. Acute systolic congestive heart failure with EF of 15-20% 3. Acute metabolic encephalopathy 4. Acute kidney injury 5. Paroxysmal A. fib/flutter 6. Diabetes mellitus type 2 7. Anemia secondary to anemia of chronic disorder 8. Physical debility 9. History of aortic valve replacement with bioprosthetic materia Recommendations: 1. I have discussed the results of my overview and impressions with the patient 2. Options for management were reviewed Code Visit Inpatient E&M: 44827 Subs Hosp L2
[2017-07-31] MEDS: Carvedilol 6.25 MG Tablet PO (09:37)
[2017-07-31] MEDS: Spironolactone 25 MG Tablet 12.5 MG PO (09:37)
[2017-07-31] MEDS: Amiodarone 200 MG Tablet PO (09:37)
[2017-07-31] MEDS: Furosemide 40 MG Tablet PO (09:37)
[2017-07-31] MEDS: guaiFENesin 1,200 MG Tablet 1200 MG PO (09:38)
[2017-07-31 09:45] LABS: International Normalized Ratio 1.7; Prothrombin Time (Protime)PT. 19.2 SECONDS (11.7-14.9)
[2017-07-31] MEDS: Polyethylene Glycol 3350 17 GM PACKET PO (09:47)
--- NOTE | 2017-07-31 15:30 | CASEMGMT ---
Received insurance approval for patient to go back to TCU. SW notified RN and physician. RN notified patient. Plan: d/c back to [facility] TCU Arianne YAP
== END 2017-07-31 10:01 | disposition skilled nursing facility (03) | DRG 189 ==
LOC: ED 07:29 → ICU 10:14 → PCU 07-24 17:28
PROVIDERS: Internal Medicine Cardiovascular Disease; Internal Medicine Critical Care Medicine; Physician Assistant; Emergency Provider Emergency Medicine; Family Provider Family Medicine; PCP Family Medicine; Visit Provider Internal Medicine
DX: J96.02 Acute respiratory failure with hypercapnia (principal); G93.41 Metabolic encephalopathy; I50.21 Acute systolic (congestive) heart failure; N17.9 Acute kidney failure, unspecified; I13.0 Hypertensive heart and chronic kidney disease with heart failure and stage 1 through stage 4 chronic kidney disease, or unspecified chronic kidney disease; Z95.3 Presence of xenogenic heart valve; N18.3 Chronic kidney disease, stage 3 (moderate); E11.22 Type 2 diabetes mellitus with diabetic chronic kidney disease; J30.9 Allergic rhinitis, unspecified; Z87.891 Personal history of nicotine dependence; Z79.4 Long term (current) use of insulin
CPT/HCPCS: 36415; 36600; 70450; 71045; 80048; 81001; 82803; 82962; 83605; 83735; 83880; 84484; 85025; 85027; 85610; 87040; 87086; 87088; 87641; 93005; 93306; 94002; 94003; 94640; 97110; 97116; 97162; 97166; 97530; 97535; 99285; J7030; J7040; J7050; A4216; J1940; J2405

== ENCOUNTER 2017-07-31 10:28 | Inpatient (IN) | payer MEDICARE, SELFPAY ==
--- NOTE | 2017-07-31 10:51 | NURSING ---
pt arrived via wc from [facility] @ [id number]
[2017-07-31 10:52] VITALS: BMI 28.8
[2017-07-31 10:55] VITALS: BMI 28.9
[2017-07-31 11:21] LABS: Bedside Glucose 199 mg/dL (70-110)
[2017-07-31] MEDS: Menthol/Lanolin/Calamine/Znox 113 GM Tube 1 APPLIC TOPICAL ×2 (14:12→21:09)
[2017-07-31 15:32] VITALS: BP 93/58; PULSE 58; RESP 18; TEMP 36.4; O2SAT 93
[2017-07-31 16:51] LABS: Bedside Glucose 152 mg/dL (70-110)
[2017-07-31] MEDS: Senna Tablet 1 TABLET PO (17:39)
[2017-07-31] MEDS: Carvedilol 3.125 MG TABLET PO (17:39)
[2017-07-31] MEDS: Furosemide 40 MG Tablet PO (17:39)
[2017-07-31 17:44] VITALS: BP 125/89; PULSE 65
--- NOTE | 2017-07-31 19:02 | PCM.HP.STD ---
Problem List (1) Acute respiratory failure Status: Acute (2) Aortic stenosis Status: Chronic (3) Acute delirium Status: Acute (4) Change in mental status Status: Acute (5) Mitral valve insufficiency Status: Chronic Qualifiers: Comment: Repair [facility] 06/2017 (6) Diabetes mellitus Status: Chronic Qualifiers: (7) Heart failure with reduced ejection fraction Status: Acute (8) Hypertension Status: Chronic (9) Allergic rhinitis Status: Chronic History of Present Illness Date of Admission: 07/31/17 Chief Complaint: Here for rehabilitation, strengthening, prior to discharge home with spouse. The patient is a 77 year old Male with below past medical history TCU resident presented to [facility] Emergency Department 07/23/2017 with change in mental status. He was drifting in and out of consciousness. 07/23/2017 CT brain chronic involutional changes. 07/23/2017 Chest X-ray progressive airspace disease suggestive of progressive infiltration versus congestive heart failure, small bilateral pleural effusions. 07/23/2017 EKG unusual P axis, possible ectopic atrial rhythm, left axis deviation. Lethargic, confused, unresponsive. ABG PCO2 78.8, improved to 64.5. Vancomycin, Zosyn, Lasix given. 07/23/2017 Echo EF 15 to 20%. Moderate to severe global hypokinetic left ventricle. Right ventricular systolic pressure 33mm HG. Atrial Fibrillation EF 40% go 15%. 07/23/2017 Dr. Mckeon recommended continuing IV Zosyn. 07/23/2017 Admit to Hospital. on BiPAP for oxygenation. Treat for heart failure, pneumonia. 07/24/2017 Dr. Higgins recommended gentle diuresis. IV Lasix 40MG twice daily. Lifelong anticoagulation to prevent LV thrombus from LV dysfunction. Change Metoprolol to Coreg. 1500cc fluid restriction. Amiodarone for atrial fibrillation, continue coumadin. 07/27/2017 Off oxygen. On PO Lasix. Condition improved. 07/31/2017 Admit to TCU for rehabilitation, strengthening, prior to discharge home with spouse. Past Medical History Past Medical History (Chronic Problems): Chronic Problems (Last Reviewed 05/17/17 @ 15:28 by Trice Bowling) Aortic stenosis (Chronic) Mitral valve insufficiency (Chronic) Repair [facility] 06/2017 Diabetes mellitus (Chronic) Chronic kidney disease (Chronic) H/O aortic valve replacement (Chronic) 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) Type 2 diabetes mellitus with hyperglycemia (Chronic) Cardiomyopathy in disease classified elsewhere (Chronic) 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) Hypertension (Chronic) Dyspnea on exertion (Chronic) Allergic rhinitis (Chronic) Allergies No Known Allergies Allergy (Verified 07/23/17 06:54) Home Medications: Ambulatory Orders Medication Instructions Recorded Multivitamins,Therapeutic 1 tab PO DAILY 07/02/14 [Multivitamin] Acetaminophen 650 mg PO Q6H PRN 07/18/17 Albuterol Inhaler [Ventolin Hfa] 2 puff INHALATION Q4H PRN PRN 07/18/17 Aspirin [Aspirin, Baby] 81 mg PO DAILY@0800 07/18/17 Insulin Detemir [Levemir FlexPen] 5 units SC BID 07/23/17 Iron Polysaccharide Complex 150 mg PO DAILYCM 07/23/17 [Ferrex 150] Polyethylene Glycol 3350 [Miralax] 17 gm PO DAILY 07/23/17 Senna [Senokot] 1 tablet PO BID 07/23/17 Trazodone HCl [Desyrel] 50 mg PO QHS 07/23/17 Warfarin [Coumadin] 1 mg PO DAILY 07/23/17 Benzonatate [Tessalon Perle] 100 mg PO 4X/DAY PRN PRN capsule 07/27/17 Guaifenesin/Codeine [Robitussin AC] 5 - 10 ml PO Q6H PRN PRN #250 ml 07/27/17 Magnesium Hydroxide [Milk Of 30 ml PO DAILY PRN PRN udc 07/30/17 Magnesia] Amiodarone HCl [Cordarone] 200 mg PO DAILY 07/31/17 Carvedilol [Coreg (Beta Severo)] 3.125 mg PO BID 07/31/17 Furosemide [Lasix] 40 mg PO BID@1000,1800 07/31/17 Insulin Aspart [Novolog Flexpen] See Protocol SC ACHS 07/31/17 Spironolactone [Aldactone] 12.5 mg PO DAILY 07/31/17 Surgical History: adenoidectomy, cholecystectomy, tonsillectomy, - - Aortic valve replacement, mitral valve repair, left atrial appendage clip. Psychiatric History: No pertinent psych hx Lives: Spouse/ Significant Other Smoking Status: Former smoker Tobacco Use: Non-smoker Alcohol: None Drugs: None - *Family History Maternal History Items: Hypertension Paternal History Items: Hypertension Review of Systems Constitutional: Denies: Chills, Fever, Weight Change HEENT: Denies: Head Aches, Sinus Congestion, Sinus Drainage Cardiovascular: Denies: Chest Pain, Palpitations Respiratory: Denies: Cough, Shortness of breath at rest, Sputum production Gastrointestinal: Denies: Abdominal Pain, Nausea, Vomiting Genitourinary: Denies: Dysuria Musculoskeletal: Denies: Joint Pain, Joint Tenderness Skin: Denies: Rash, Wounds Neurological: Denies: Numbness, Tingling, Focal weakness Psychiatric: Denies: Anxiety, Depression, Homicidal Ideations, Suicidal Ideations Hematologic/ Lymphatic: Denies: Easy Bruising, Easy Bleeding VTE Information - Inpt Only VTE Present on Admission: No VTE Mechan Device Prophylaxis: Knee High LAUREN Hose VTE Pharm Prophylaxis ordered?: No Reason prophylaxis not ordered:: Treatment Not Indicated Patient Problems: Active and Suspected Problems (Last Reviewed 05/17/17 @ 15:28 by Trice Bowling) Acute respiratory failure (Acute) Acute delirium (Acute) Change in mental status (Acute) - Physical Exam General: Alert, Oriented x3, Cooperative HEENT: Atraumatic, PERRLA, EOMI, Normocephalic Neck: Supple, No JVD, Negative Carotid Bruits Lungs: Clear to auscultation, Normal air movement Cardiovascular: Regular rate, No murmurs Abdomen: Bowel Sounds Present, Soft, Non Tender Extremities: No edema, Capillary Refill Less than 3 Seconds Skin: No rashes, No breakdown Musculoskeletal: No Tenderness to Palpation of Joints or Extremities Neurological: Cranial nerves II-XII grossly intact Psych/Mental Status: Normal Affect, Appropriate Vital Signs Temp Pulse Resp BP Pulse Ox 97.6 F L 65 18 125/89 H 93 07/31/17 15:32 07/31/17 17:44 07/31/17 15:32 07/31/17 17:44 07/31/17 15:32 Oxygen Flow Rate 1 Oxygen Delivery Method Room Air Weight: 76.345 kg Body Mass Index (BMI) 28.8 Finger Stick Blood Glucose 243 Intake and Output for Last 24 Hours 07/29/17 07/30/17 07/31/17 23:59 23:59 23:59 Intake Total 402 / 402 Balance 402 / 402 POC Glucose 07/31/17 07/31/17 16:42 11:16 POC Glucose 152 H 199 H Assessment/Plan Active and Suspected Problems (Last Reviewed 05/17/17 @ 15:28 by Trice Bowling) Acute respiratory failure (Acute) Acute delirium (Acute) Change in mental status (Acute) 77 year old male with below past medical history hospitalized for change in mental status secondary to acute respiratory failure from heart failure with reduced ejection fraction, admitted to TCU with debility, for rehabilitation, strengthening, prior to discharge home with spouse. Debility - PT/OT. Pain - Tylenol 1000MG Q8H PRN mild pain. Bowel - Miralax 17GM daily, Senna/colace 1 tablet BID, Dulcolax 10MG SD daily PRN. Pneumonia vaccination - Administer Prevnar 13 and/or Pneumovax 23 as necessary. DVT prophylaxis - Not necessary, already on warfarin. Shortness of breath - Albuterol MDI 2 puffs Q4H PRN. Atrial Fibrillation - Coreg 3.125MG BID, Amiodarone 200MG daily, Warfarin 1MG daily, follow INR. CV prophylaxis - Aspirin 81MG daily. Cough - Tessalon Perles 100MG 4x/day PRN, Robitussin AC 5-10ML Q6H PRN. Acute on chronic systolic heart failure - Coreg 3.125MG BID, Aldactone 12.5MG, Lower Lasix to 40MG daily, Rx Entresto 24/26MG BID. Diabetes Mellitus II - Levemir 5 units BID. Iron deficiency anemia - Ferrex 150MG daily. Skin irritation - Calmoseptine TID buttocks. Nutrition - MVI daily. Tinea corporis - Nystatin powder BID inner thigh, groin. Insomnia - Trazodone 50MG QHS.
--- NOTE | 2017-07-31 19:11 | HP.PCM_ITS ---
Problem List (1) Acute respiratory failure Status: Acute (2) Aortic stenosis Status: Chronic (3) Acute delirium Status: Acute (4) Change in mental status Status: Acute (5) Mitral valve insufficiency Status: Chronic Qualifiers: Comment: Repair [facility] 06/2017 (6) Diabetes mellitus Status: Chronic Qualifiers: (7) Heart failure with reduced ejection fraction Status: Acute (8) Hypertension Status: Chronic (9) Allergic rhinitis Status: Chronic History of Present Illness Date of Admission: 07/31/17 Chief Complaint: Here for rehabilitation, strengthening, prior to discharge home with spouse. The patient is a 77 year old Male with below past medical history TCU resident presented to [facility] Emergency Department 07/23/2017 with change in mental status. He was drifting in and out of consciousness. 07/23/2017 CT brain chronic involutional changes. 07/23/2017 Chest X-ray progressive airspace disease suggestive of progressive infiltration versus congestive heart failure, small bilateral pleural effusions. 07/23/2017 EKG unusual P axis, possible ectopic atrial rhythm, left axis deviation. Lethargic, confused, unresponsive. ABG PCO2 78.8, improved to 64.5. Vancomycin, Zosyn, Lasix given. 07/23/2017 Echo EF 15 to 20%. Moderate to severe global hypokinetic left ventricle. Right ventricular systolic pressure 33mm HG. Atrial Fibrillation EF 40% go 15%. 07/23/2017 Dr. Mckeon recommended continuing IV Zosyn. 07/23/2017 Admit to Hospital. on BiPAP for oxygenation. Treat for heart failure, pneumonia. 07/24/2017 Dr. Higgins recommended gentle diuresis. IV Lasix 40MG twice daily. Lifelong anticoagulation to prevent LV thrombus from LV dysfunction. Change Metoprolol to Coreg. 1500cc fluid restriction. Amiodarone for atrial fibrillation, continue coumadin. 07/27/2017 Off oxygen. On PO Lasix. Condition improved. 07/31/2017 Admit to TCU for rehabilitation, strengthening, prior to discharge home with spouse. Past Medical History Past Medical History (Chronic Problems): Chronic Problems (Last Reviewed 05/17/17 @ 15:28 by Trice Bowling) Aortic stenosis (Chronic) Mitral valve insufficiency (Chronic) Repair [facility] 06/2017 Diabetes mellitus (Chronic) Chronic kidney disease (Chronic) H/O aortic valve replacement (Chronic) 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) Type 2 diabetes mellitus with hyperglycemia (Chronic) Cardiomyopathy in disease classified elsewhere (Chronic) 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) Hypertension (Chronic) Dyspnea on exertion (Chronic) Allergic rhinitis (Chronic) Allergies No Known Allergies Allergy (Verified 07/23/17 06:54) Home Medications: Ambulatory Orders Medication Instructions Recorded Multivitamins,Therapeutic 1 tab PO DAILY 07/02/14 [Multivitamin] Acetaminophen 650 mg PO Q6H PRN 07/18/17 Albuterol Inhaler [Ventolin Hfa] 2 puff INHALATION Q4H PRN PRN 07/18/17 Aspirin [Aspirin, Baby] 81 mg PO DAILY@0800 07/18/17 Insulin Detemir [Levemir FlexPen] 5 units SC BID 07/23/17 Iron Polysaccharide Complex 150 mg PO DAILYCM 07/23/17 [Ferrex 150] Polyethylene Glycol 3350 [Miralax] 17 gm PO DAILY 07/23/17 Senna [Senokot] 1 tablet PO BID 07/23/17 Trazodone HCl [Desyrel] 50 mg PO QHS 07/23/17 Warfarin [Coumadin] 1 mg PO DAILY 07/23/17 Benzonatate [Tessalon Perle] 100 mg PO 4X/DAY PRN PRN capsule 07/27/17 Guaifenesin/Codeine [Robitussin AC] 5 - 10 ml PO Q6H PRN PRN #250 ml 07/27/17 Magnesium Hydroxide [Milk Of 30 ml PO DAILY PRN PRN udc 07/30/17 Magnesia] Amiodarone HCl [Cordarone] 200 mg PO DAILY 07/31/17 Carvedilol [Coreg (Beta Severo)] 3.125 mg PO BID 07/31/17 Furosemide [Lasix] 40 mg PO BID@1000,1800 07/31/17 Insulin Aspart [Novolog Flexpen] See Protocol SC ACHS 07/31/17 Spironolactone [Aldactone] 12.5 mg PO DAILY 07/31/17 Surgical History: adenoidectomy, cholecystectomy, tonsillectomy, - - Aortic valve replacement, mitral valve repair, left atrial appendage clip. Psychiatric History: No pertinent psych hx Lives: Spouse/ Significant Other Smoking Status: Former smoker Tobacco Use: Non-smoker Alcohol: None Drugs: None - *Family History Maternal History Items: Hypertension Paternal History Items: Hypertension Review of Systems Constitutional: Denies: Chills, Fever, Weight Change HEENT: Denies: Head Aches, Sinus Congestion, Sinus Drainage Cardiovascular: Denies: Chest Pain, Palpitations Respiratory: Denies: Cough, Shortness of breath at rest, Sputum production Gastrointestinal: Denies: Abdominal Pain, Nausea, Vomiting Genitourinary: Denies: Dysuria Musculoskeletal: Denies: Joint Pain, Joint Tenderness Skin: Denies: Rash, Wounds Neurological: Denies: Numbness, Tingling, Focal weakness Psychiatric: Denies: Anxiety, Depression, Homicidal Ideations, Suicidal Ideations Hematologic/ Lymphatic: Denies: Easy Bruising, Easy Bleeding VTE Information - Inpt Only VTE Present on Admission: No VTE Mechan Device Prophylaxis: Knee High LAUREN Hose VTE Pharm Prophylaxis ordered?: No Reason prophylaxis not ordered:: Treatment Not Indicated Patient Problems: Active and Suspected Problems (Last Reviewed 05/17/17 @ 15:28 by Trice Bowling) Acute respiratory failure (Acute) Acute delirium (Acute) Change in mental status (Acute) - Physical Exam General: Alert, Oriented x3, Cooperative HEENT: Atraumatic, PERRLA, EOMI, Normocephalic Neck: Supple, No JVD, Negative Carotid Bruits Lungs: Clear to auscultation, Normal air movement Cardiovascular: Regular rate, No murmurs Abdomen: Bowel Sounds Present, Soft, Non Tender Extremities: No edema, Capillary Refill Less than 3 Seconds Skin: No rashes, No breakdown Musculoskeletal: No Tenderness to Palpation of Joints or Extremities Neurological: Cranial nerves II-XII grossly intact Psych/Mental Status: Normal Affect, Appropriate Vital Signs Temp Pulse Resp BP Pulse Ox 97.6 F L 65 18 125/89 H 93 07/31/17 15:32 07/31/17 17:44 07/31/17 15:32 07/31/17 17:44 07/31/17 15:32 Oxygen Flow Rate 1 Oxygen Delivery Method Room Air Weight: 76.345 kg Body Mass Index (BMI) 28.8 Finger Stick Blood Glucose 243 Intake and Output for Last 24 Hours 07/29/17 07/30/17 07/31/17 23:59 23:59 23:59 Intake Total 402 / 402 Balance 402 / 402 POC Glucose 07/31/17 07/31/17 16:42 11:16 POC Glucose 152 H 199 H Assessment/Plan Active and Suspected Problems (Last Reviewed 05/17/17 @ 15:28 by Trice Bowling) Acute respiratory failure (Acute) Acute delirium (Acute) Change in mental status (Acute) 77 year old male with below past medical history hospitalized for change in mental status secondary to acute respiratory failure from heart failure with reduced ejection fraction, admitted to TCU with debility, for rehabilitation, strengthening, prior to discharge home with spouse. * Debility - PT/OT. * Pain - Tylenol 1000MG Q8H PRN mild pain. * Bowel - Miralax 17GM daily, Senna/colace 1 tablet BID, Dulcolax 10MG NC daily PRN. * Pneumonia vaccination - Administer Prevnar 13 and/or Pneumovax 23 as necessary. * DVT prophylaxis - Not necessary, already on warfarin. * Shortness of breath - Albuterol MDI 2 puffs Q4H PRN. * Atrial Fibrillation - Coreg 3.125MG BID, Amiodarone 200MG daily, Warfarin 1MG daily, follow INR. * CV prophylaxis - Aspirin 81MG daily. * Cough - Tessalon Perles 100MG 4x/day PRN, Robitussin AC 5-10ML Q6H PRN. * Acute on chronic systolic heart failure - Coreg 3.125MG BID, Aldactone 12.5MG , Lower Lasix to 40MG daily, Rx Entresto 24/26MG BID. * Diabetes Mellitus II - Levemir 5 units BID. * Iron deficiency anemia - Ferrex 150MG daily. * Skin irritation - Calmoseptine TID buttocks. * Nutrition - MVI daily. * Tinea corporis - Nystatin powder BID inner thigh, groin. * Insomnia - Trazodone 50MG QHS.
[2017-07-31] MEDS: traZODone 50 MG Tablet PO (21:08)
[2017-07-31] MEDS: Nystatin Powder 15gm Bottle 1 APPLIC TOPICAL (21:10)
[2017-07-31 21:41] LABS: Bedside Glucose 221 mg/dL (70-110)
[2017-07-31] MEDS: guaiFENesin/Codeine 5 ML UDC PO (23:19)
[2017-08-01] MEDS: Carvedilol 3.125 MG TABLET PO ×2 (06:08→17:15)
[2017-08-01] MEDS: SACUBITRIL/VALSARTAN 24/26 MG TABLET 1 EACH PO ×2 (06:08→17:15)
[2017-08-01] MEDS: Spironolactone 25 MG Tablet 12.5 MG PO (06:08)
[2017-08-01] MEDS: Amiodarone 200 MG Tablet PO (06:08)
[2017-08-01] MEDS: Furosemide 40 MG Tablet PO (06:13)
[2017-08-01] MEDS: Nystatin Powder 15gm Bottle 1 APPLIC TOPICAL ×2 (06:17→21:26)
[2017-08-01] MEDS: Menthol/Lanolin/Calamine/Znox 113 GM Tube 1 APPLIC TOPICAL ×3 (06:17→21:25)
[2017-08-01 06:21] LABS: Bedside Glucose 135 mg/dL (70-110)
[2017-08-01 06:24] LABS: International Normalized Ratio 1.6; Prothrombin Time (Protime)PT. 18.2 SECONDS (11.7-14.9)
[2017-08-01 06:30] LABS: Anion Gap 7 (5-15); BUN 25 mg/dL (7-18); BUN/Creat Ratio 15.6 RATIO (10-20); Calcium,Total 8.7 mg/dL (8.5-10.1); Chloride 95 mmol/L (98-107); EST Glomerular Filtration Rate 45 mL/min (>60); Est Glom Filt Rate - Afr Amer 54 mL/min (>60); Glucose 130 mg/dL (74-106); Potassium 3.4 mmol/L (3.5-5.1); Sodium Level 137 mmol/L (136-145)
[2017-08-01 06:34] LABS: Hematocrit 29.9 % (40-54); Hemoglobin 9.2 g/dl (13.0-16.5); Mean Corp Hgb Conc 30.8 g/gl (32-36); Mean Corpuscular Volume 107.2 fL (80-94); Mean Platelet Vol. 10.2 fl (6.2-12.0); Platelet Count 163 K/mm3 (150-450); RBC Distribution Width CV 18.7 % (11.6-14.6); RBC Distribution Width SD 69.5 fl (35.1-43.9); Red Blood Count 2.79 M/mm3 (4.6-6.2); White Blood Count 5.7 K/mm3 (4.4-11.0)
[2017-08-01 06:35] LABS: Differential Indicated MANUAL DIFF; POSITIVE COUNT YES; POSITIVE DIFFERENTIAL NO; POSITIVE MORPHOLOGY YES
[2017-08-01 07:15] LABS: Eosinophil 8 % (0-5); Lymphocyte 56 % (19-41); Macrocytosis 3+; Metamyelocyte 1 % (0-1); Monocyte 16 % (0-10); Neutrophil-Band 1 % (0-5); Neutrophil-Segmented 18 % (47-70); Platelet Estimate ADEQUATE (ADEQ); Red Cell Morphology N CHROM NORMAL (NORM C&C); Total Cells Counted 100 (MANUAL DIFF)
[2017-08-01 07:17] LABS: Absolute Lymphocyte Count 3.19 X10^3/ul (0.83-4.51); Absolute Neutrophil Count 1.1 X10^3/uL (2.0-7.7); Lymphocyte # 3.19 X10^3/ul (4.0); Neutrophil # 1.08 X10^3/uL (2.7-7.7)
[2017-08-01] MEDS: Multivitamins,Therapeutic Tablet 1 TABLET PO (09:02)
[2017-08-01] MEDS: Aspirin 81 MG TAB.CHEW PO (09:02)
[2017-08-01] MEDS: Iron Polysaccharide Complex 150 MG CAPSULE PO (09:02)
[2017-08-01] MEDS: Tuberculin,Purif.prot.deriv. 50 TU/ML Vial 5 ML ID (09:52)
[2017-08-01 10:00] VITALS: PULSE 64; RESP 18; O2SAT 1
[2017-08-01 12:31] LABS: Bedside Glucose 132 mg/dL (70-110)
[2017-08-01] MEDS: guaiFENesin/Codeine 5 ML UDC PO (13:35)
[2017-08-01 15:25] LABS: Pathologist Review Reviewed
[2017-08-01 16:00] VITALS: BP 105/49; PULSE 46; RESP 18; TEMP 36.4; O2SAT 97
[2017-08-01 16:41] LABS: Bedside Glucose 241 mg/dL (70-110)
[2017-08-01] MEDS: Senna/Docusate Sodium 1 Tablet PO (17:15)
[2017-08-01] MEDS: traZODone 50 MG Tablet PO (21:23)
[2017-08-01 22:06] LABS: Bedside Glucose 226 mg/dL (70-110)
[2017-08-02] MEDS: Spironolactone 25 MG Tablet 12.5 MG PO (04:45)
[2017-08-02] MEDS: SACUBITRIL/VALSARTAN 24/26 MG TABLET 1 EACH PO ×2 (04:45→18:12)
[2017-08-02] MEDS: Carvedilol 3.125 MG TABLET PO (04:45)
[2017-08-02] MEDS: Amiodarone 200 MG Tablet PO (04:45)
[2017-08-02] MEDS: Furosemide 40 MG Tablet PO (04:45)
[2017-08-02] MEDS: Menthol/Lanolin/Calamine/Znox 113 GM Tube 1 APPLIC TOPICAL ×3 (04:50→21:36)
[2017-08-02] MEDS: Nystatin Powder 15gm Bottle 1 APPLIC TOPICAL ×2 (04:51→21:37)
[2017-08-02 05:54] LABS: International Normalized Ratio 1.4; Prothrombin Time (Protime)PT. 17.6 SECONDS (11.7-14.9)
[2017-08-02 06:41] LABS: Bedside Glucose 144 mg/dL (70-110)
[2017-08-02] MEDS: Iron Polysaccharide Complex 150 MG CAPSULE PO (08:28)
[2017-08-02] MEDS: Aspirin 81 MG TAB.CHEW PO (08:28)
[2017-08-02] MEDS: Multivitamins,Therapeutic Tablet 1 TABLET PO (08:28)
[2017-08-02 09:48] VITALS: PULSE 64; RESP 18; O2SAT 99
[2017-08-02 11:35] LABS: Bedside Glucose 198 mg/dL (70-110)
--- NOTE | 2017-08-02 13:11 | CASEMGMT ---
Insurance Clinical information faxed. Pending continued stay approval at this time. Auth#[id number] Jade MAY, [employer]
[2017-08-02 15:30] VITALS: BP 85/47; PULSE 72; RESP 18; TEMP 36.4; O2SAT 97
[2017-08-02 16:56] LABS: Bedside Glucose 218 mg/dL (70-110)
[2017-08-02 18:00] VITALS: BP 98/75; PULSE 41; RESP 18; O2SAT 100
[2017-08-02] MEDS: Warfarin 0.5 MG Tablet 1.5 MG PO (18:11)
[2017-08-02] MEDS: Senna/Docusate Sodium 1 Tablet PO (18:12)
[2017-08-02] MEDS: guaiFENesin/Codeine 5 ML UDC PO (18:18)
[2017-08-02 21:31] LABS: Bedside Glucose 197 mg/dL (70-110)
[2017-08-02] MEDS: Benzonatate 100 MG Capsule PO (21:35)
[2017-08-02] MEDS: traZODone 50 MG Tablet PO (21:35)
[2017-08-03] MEDS: guaiFENesin/Codeine 5 ML UDC PO ×2 (03:43→14:09)
[2017-08-03] MEDS: Furosemide 40 MG Tablet PO (06:09)
[2017-08-03] MEDS: Spironolactone 25 MG Tablet 12.5 MG PO (06:09)
[2017-08-03] MEDS: Amiodarone 200 MG Tablet PO (06:09)
[2017-08-03] MEDS: Carvedilol 3.125 MG TABLET PO ×2 (06:09→18:01)
[2017-08-03] MEDS: SACUBITRIL/VALSARTAN 24/26 MG TABLET 1 EACH PO ×2 (06:09→18:01)
[2017-08-03] MEDS: Menthol/Lanolin/Calamine/Znox 113 GM Tube 1 APPLIC TOPICAL ×3 (06:10→20:38)
[2017-08-03] MEDS: Nystatin Powder 15gm Bottle 1 APPLIC TOPICAL ×2 (06:10→20:37)
[2017-08-03 06:15] LABS: International Normalized Ratio 1.4; Prothrombin Time (Protime)PT. 17.1 SECONDS (11.7-14.9)
[2017-08-03 06:36] LABS: Bedside Glucose 144 mg/dL (70-110)
[2017-08-03] MEDS: Iron Polysaccharide Complex 150 MG CAPSULE PO (08:37)
[2017-08-03] MEDS: Aspirin 81 MG TAB.CHEW PO (08:37)
[2017-08-03] MEDS: Multivitamins,Therapeutic Tablet 1 TABLET PO (08:37)
[2017-08-03 09:10] VITALS: O2SAT 98
--- NOTE | 2017-08-03 10:34 | NURSING ---
Addendum entered by Natalie Velasquez 08/03/17 14:33: DR LUI NOTIFIED, NEW ORDER TO D/C ALDACTONE, DECREASE LASIX TO 20MG PO. Original Note: Pt alarm going off Pt found at the edge of his recliner, Pt states that he is very ligh headed and dizzy and feels like he could pass out. Pt adjusted in chair vital signs T -98.9 P-59 R-20 BP 88/40 Spo2 92 on 1l via nasal cannula. Natalie ZAPATA aware
[2017-08-03 11:01] VITALS: BP 88/40; PULSE 59; RESP 18; TEMP 36.7; O2SAT 94
[2017-08-03 11:31] LABS: Bedside Glucose 193 mg/dL (70-110)
--- NOTE | 2017-08-03 12:39 | PCM.PROGNOTE ---
Patient Problems: Active and Suspected Problems (Last Reviewed 05/17/17 @ 15:28 by Trice Bowling) Acute respiratory failure (Acute) Acute delirium (Acute) Change in mental status (Acute) Subjective: This 77 year old patient was consulted to podiatry for thickened, discolored, dystrophic, elongated, painful toenails with the presence of subungual debris of toenails 1, 2, 3, 4, 5 of the right and left foot. Patient says he is unsure of the last time his nails have been trimmed, and that they cause him pain when pressure is applied. Patient states that he gets relief when his nails are trimmed. Patient denies any feelings of nausea, vomiting, fever, chills at the current time. - Physical Exam General: Alert, Oriented x3, Cooperative Extremities: Capillary Refill Less than 3 Seconds, No Calf Tenderness - Negative Ramy and Donis sign bilateral, Diminished Peripheral Pulses - DP and PT pulses nonpalpable due to edema, Edema Skin: - - Toenails 1, 2, 3, 4, 5 of the right and left foot are thickened discolored elongated painful with the presence of subungual debris. There are no signs of infection appreciated at this time Musculoskeletal: Tenderness - to aforementioned toenails Neurological: Sensory exam intact to light touch and pain Psych/Mental Status: Normal Affect, Appropriate Vital Signs Temp Pulse Resp BP Pulse Ox 98.1 F 59 L 18 88/40 L 94 08/03/17 11:01 08/03/17 11:01 08/03/17 11:01 08/03/17 11:01 08/03/17 11:01 Oxygen Flow Rate 1 Oxygen Delivery Method Nasal Cannula Weight: 76.345 kg Body Mass Index (BMI) 28.8 Finger Stick Blood Glucose 243 Intake and Output for Last 24 Hours 08/01/17 08/02/17 08/03/17 23:59 23:59 23:59 Intake Total 480 / 480 720 / 720 Balance 480 / 480 720 / 720 Laboratory Tests Past 24 Hrs 08/03/17 05:25 PT 17.1 H INR 1.4 POC Glucose 08/03/17 08/03/17 08/02/17 11:26 06:08 21:24 POC Glucose 193 H 144 H 197 H 08/02/17 16:51 POC Glucose 218 H Assessment/Plan Active and Suspected Problems (Last Reviewed 05/17/17 @ 15:28 by Trice Bowling) Acute respiratory failure (Acute) Acute delirium (Acute) Change in mental status (Acute) Tinea unguium Pain left toe(s) Pain right toe (s) Patient was carefully examined and evaluated bedside. Patient is resting comfortably. Toenails 1, 2, 3, 4, 5 of the right and left foot were then carefully debrided in length using a nail nipper. This was done without incident. Patient experienced relief of painful toenails upon debridement. Thank you for this consult.
[2017-08-03 16:00] VITALS: BP 103/59; PULSE 45; RESP 15; TEMP 36.4; O2SAT 97
--- NOTE | 2017-08-03 16:31 | PCM.PN.RX ---
<Vern Warren D - Last Filed: 08/03/17 16:31> Progress Note - Pharmacy Subjective: TCU Admission Objective: Allergies No Known Allergies Allergy (Verified 07/23/17 06:54) Home Medications Medication Instructions Recorded Multivitamins,Therapeutic 1 tab PO DAILY 07/02/14 [Multivitamin] Acetaminophen 650 mg PO Q6H PRN 07/18/17 Albuterol Inhaler [Ventolin Hfa] 2 puff INHALATION Q4H PRN PRN 07/18/17 Aspirin [Aspirin, Baby] 81 mg PO DAILY@0800 07/18/17 Insulin Detemir [Levemir FlexPen] 5 units SC BID 07/23/17 Iron Polysaccharide Complex 150 mg PO DAILYCM 07/23/17 [Ferrex 150] Polyethylene Glycol 3350 [Miralax] 17 gm PO DAILY 07/23/17 Senna [Senokot] 1 tablet PO BID 07/23/17 Trazodone HCl [Desyrel] 50 mg PO QHS 07/23/17 Warfarin [Coumadin] 1 mg PO DAILY 07/23/17 Benzonatate [Tessalon Perle] 100 mg PO 4X/DAY PRN PRN capsule 07/27/17 Guaifenesin/Codeine [Robitussin AC] 5 - 10 ml PO Q6H PRN PRN #250 ml 07/27/17 Magnesium Hydroxide [Milk Of 30 ml PO DAILY PRN PRN udc 07/30/17 Magnesia] Amiodarone HCl [Cordarone] 200 mg PO DAILY 07/31/17 Carvedilol [Coreg (Beta Severo)] 3.125 mg PO BID 07/31/17 Furosemide [Lasix] 40 mg PO BID@1000,1800 07/31/17 Insulin Aspart [Novolog Flexpen] See Protocol SC ACHS 07/31/17 Spironolactone [Aldactone] 12.5 mg PO DAILY 07/31/17 Current Medications Generic Name Dose Route Start Last Admin Trade Name Freq PRN Reason Stop Dose Admin Acetaminophen 1,000 mg 07/31/17 19:28 Tylenol PO Q8H PRN MILD PAIN (1-3/10) Albuterol Sulfate 2 puff 07/31/17 10:57 Ventolin Hfa (Sp) INHALATION Q4H PRN PRN SHORTNESS OF BREATH Amiodarone HCl 200 mg 08/01/17 06:00 08/03/17 06:09 Cordarone PO 200 mg DAILY [facility] Administration Aspirin 81 mg 08/01/17 08:00 08/03/17 08:37 Aspirin, Baby PO 81 mg DAILY@0800 [facility] Administration Benzonatate 100 mg 07/31/17 10:57 08/02/17 21:35 Tessalon Perle PO 100 mg 4X/DAY PRN PRN Administration COUGH Bisacodyl 10 mg 07/31/17 10:54 Dulcolax RECTAL DAILY PRN Constipation Calamine/Phenol 1 applic 07/31/17 14:00 08/03/17 13:26 Calmoseptine Ointment TOPICAL 1 applicatio TID [facility] Administration Protocol Carvedilol 3.125 mg 07/31/17 18:00 08/03/17 06:09 Coreg PO 3.125 mg BID [facility] Administration Furosemide 20 mg 08/04/17 06:00 Lasix PO DAILY [facility] Guaifenesin/Codeine Phosphate 5 - 10 ml 07/31/17 10:57 08/03/17 14:09 Robitussin Ac PO 10 ml Q6H PRN PRN Administration COUGH Insulin Detemir 5 units 07/31/17 18:00 08/03/17 06:09 Levemir (Bkc) SC 5 units BID [facility] Administration Multivitamins 1 tablet 08/01/17 08:00 08/03/17 08:37 Multivitamin PO 1 tablet DAILY@0800 [facility] Administration Nystatin 1 applic 07/31/17 22:00 08/03/17 06:10 Mycostatin Powder TOPICAL 1 applicatio 0600,2200 [facility] Administration Protocol Polyethylene Glycol 17 gm 08/01/17 06:00 08/03/17 06:17 Miralax PO Not Given DAILY [facility] Polysaccharide Iron Complex 150 mg 08/01/17 08:00 08/03/17 08:37 Ferrex 150 PO 150 mg DAILYCM [facility] Administration Senna/Docusate Sodium 1 tablet 08/01/17 06:00 08/03/17 06:17 Senokot-S, Shantell-Colace PO Not Given BID [facility] Trazodone HCl 50 mg 07/31/17 22:00 08/02/17 21:35 Desyrel PO 50 mg QHS [facility] Administration Warfarin Sodium 2 mg 08/03/17 17:00 Coumadin (Pbkc) PO DAILY@1700 [facility] Problem List (Last Reviewed 05/17/17 @ 15:28 by Trice Bowling) Acute respiratory failure (Acute) Aortic stenosis (Chronic) Acute delirium (Acute) Change in mental status (Acute) Vital Signs Temp Pulse Resp BP Pulse Ox 98.1 F 59 L 18 88/40 L 94 08/03/17 11:01 08/03/17 11:01 08/03/17 11:01 08/03/17 11:01 08/03/17 11:01 Oxygen Flow Rate 1 Oxygen Delivery Method Nasal Cannula Weight: 76.345 kg Body Mass Index (BMI) 28.8 Finger Stick Blood Glucose 243 Sodium 137 mmol/L (136-145) 08/01/17 05:15 Potassium 3.4 mmol/L (3.5-5.1) L 08/01/17 05:15 Chloride 95 mmol/L (98-107) L 08/01/17 05:15 Carbon Dioxide 35.0 mmol/L (21.0-32.0) H 08/01/17 05:15 Anion Gap 7 (5-15) 08/01/17 05:15 BUN 25 mg/dL (7-18) H 08/01/17 05:15 Creatinine 1.60 mg/dL (0.70-1.30) H 08/01/17 05:15 Est GFR (MDRD) Af Amer 54 mL/min (>60) L 08/01/17 05:15 Est GFR (MDRD) Non-Af 45 mL/min (>60) L 08/01/17 05:15 BUN/Creatinine Ratio 15.6 RATIO (10-20) 08/01/17 05:15 Glucose 130 mg/dL (74-106) H 08/01/17 05:15 Assessment/Plan: 1) Pain APAP for mild pain. Continue to monitor prn medication use, daily pain scores. 2) AFib/CHF Warfarin goal INR 2-3, sacubitril/valsartan, furosemide, carvedilol, amiodarone, ASA. BP/HR low end of normal range, last K slightly below normal rage, BUN/SCr at baseline, INR below goal range. Continue to monitor BP/HR, s/s hypotension/bradycardia, renal function, electrolytes, INR, s/s bleeding. 3) DM2 Insulin detemir twice daily. Avg BGT < 200 mg/dL. Continue to monitor s/s hyper/hypoglycemia. 4) Derm Calmoseptine, nystatin powder topically. Continue to monitor clinically. 5) Nutrition Multivitamin, Fe. Continue to monitor clinically. 6) Pulm Guaifenesin/codeine, benzonatate, albuterol prn. Continue to monitor prn medication use, for exacerbation. Psychotropic Medications: 7) Insomnia Trazodone at HS for sleep. Continue to monitor for insomnia. Unnecessary Medications: None Bowel Regimen: 8) Senna/s, PEG, prn bisacodyl. Continue to monitor prn medication use, for constipation/diarrhea. Date of Note:: 08/03/17 - Provider Comments Provider responsibility: Provider responsible to enter orders to implement recommendations <Ramesh Pabon Chi - Last Filed: 08/03/17 21:31> Progress Note - Pharmacy Subjective: [] Objective: Allergies No Known Allergies Allergy (Verified 07/23/17 06:54) Home Medications Medication Instructions Recorded Multivitamins,Therapeutic 1 tab PO DAILY 07/02/14 [Multivitamin] Acetaminophen 650 mg PO Q6H PRN 07/18/17 Albuterol Inhaler [Ventolin Hfa] 2 puff INHALATION Q4H PRN PRN 07/18/17 Aspirin [Aspirin, Baby] 81 mg PO DAILY@0800 07/18/17 Insulin Detemir [Levemir FlexPen] 5 units SC BID 07/23/17 Iron Polysaccharide Complex 150 mg PO DAILYCM 07/23/17 [Ferrex 150] Polyethylene Glycol 3350 [Miralax] 17 gm PO DAILY 07/23/17 Senna [Senokot] 1 tablet PO BID 07/23/17 Trazodone HCl [Desyrel] 50 mg PO QHS 07/23/17 Warfarin [Coumadin] 1 mg PO DAILY 07/23/17 Benzonatate [Tessalon Perle] 100 mg PO 4X/DAY PRN PRN capsule 07/27/17 Guaifenesin/Codeine [Robitussin AC] 5 - 10 ml PO Q6H PRN PRN #250 ml 07/27/17 Magnesium Hydroxide [Milk Of 30 ml PO DAILY PRN PRN udc 07/30/17 Magnesia] Amiodarone HCl [Cordarone] 200 mg PO DAILY 07/31/17 Carvedilol [Coreg (Beta Severo)] 3.125 mg PO BID 07/31/17 Furosemide [Lasix] 40 mg PO BID@1000,1800 07/31/17 Insulin Aspart [Novolog Flexpen] See Protocol SC ACHS 07/31/17 Spironolactone [Aldactone] 12.5 mg PO DAILY 07/31/17 Current Medications Generic Name Dose Route Start Last Admin Trade Name Freq PRN Reason Stop Dose Admin Acetaminophen 1,000 mg 07/31/17 19:28 Tylenol PO Q8H PRN MILD PAIN (1-08/11) Albuterol Sulfate 2 puff 07/31/17 10:57 Ventolin Hfa (Sp) INHALATION Q4H PRN PRN SHORTNESS OF BREATH Amiodarone HCl 200 mg 08/01/17 06:00 08/03/17 06:09 Cordarone PO 200 mg DAILY [facility] Administration Aspirin 81 mg 08/01/17 08:00 08/03/17 08:37 Aspirin, Baby PO 81 mg DAILY@0800 [facility] Administration Benzonatate 100 mg 07/31/17 10:57 08/02/17 21:35 Tessalon Perle PO 100 mg 4X/DAY PRN PRN Administration COUGH Bisacodyl 10 mg 07/31/17 10:54 Dulcolax RECTAL DAILY PRN Constipation Calamine/Phenol 1 applic 07/31/17 14:00 08/03/17 20:38 Calmoseptine Ointment TOPICAL 1 applicatio TID [facility] Administration Protocol Carvedilol 3.125 mg 07/31/17 18:00 08/03/17 18:01 Coreg PO 3.125 mg BID [facility] Administration Furosemide 20 mg 08/04/17 06:00 Lasix PO DAILY [facility] Guaifenesin/Codeine Phosphate 5 - 10 ml 07/31/17 10:57 08/03/17 14:09 Robitussin Ac PO 10 ml Q6H PRN PRN Administration COUGH Insulin Detemir 5 units 07/31/17 18:00 08/03/17 18:02 Levemir (Bkc) SC 5 units BID [facility] Administration Multivitamins 1 tablet 08/01/17 08:00 08/03/17 08:37 Multivitamin PO 1 tablet DAILY@0800 [facility] Administration Nystatin 1 applic 07/31/17 22:00 08/03/17 20:37 Mycostatin Powder TOPICAL 1 applicatio 0600,2200 [facility] Administration Protocol Polyethylene Glycol 17 gm 08/01/17 06:00 08/03/17 06:17 Miralax PO Not Given DAILY [facility] Polysaccharide Iron Complex 150 mg 08/01/17 08:00 08/03/17 08:37 Ferrex 150 PO 150 mg DAILYCM [facility] Administration Senna/Docusate Sodium 1 tablet 08/01/17 06:00 08/03/17 17:59 Senokot-S, Shantell-Colace PO Not Given BID [facility] Trazodone HCl 50 mg 07/31/17 22:00 08/03/17 20:36 Desyrel PO 50 mg QHS [facility] Administration Warfarin Sodium 2 mg 08/03/17 17:00 08/03/17 18:01 Coumadin (Pbkc) PO 2 mg DAILY@1700 [facility] Administration Problem List (Last Reviewed 05/17/17 @ 15:28 by Trice Bowling) Acute respiratory failure (Acute) Aortic stenosis (Chronic) Acute delirium (Acute) Change in mental status (Acute) Vital Signs Temp Pulse Resp BP Pulse Ox 97.6 F L 45 L 18 103/59 L 97 08/03/17 16:00 08/03/17 16:00 08/03/17 20:15 08/03/17 16:00 08/03/17 16:00 Oxygen Flow Rate 1 Oxygen Delivery Method Room Air Weight: 76.345 kg Body Mass Index (BMI) 28.8 Finger Stick Blood Glucose 243 Sodium 137 mmol/L (136-145) 08/01/17 05:15 Potassium 3.4 mmol/L (3.5-5.1) L 08/01/17 05:15 Chloride 95 mmol/L (98-107) L 08/01/17 05:15 Carbon Dioxide 35.0 mmol/L (21.0-32.0) H 08/01/17 05:15 Anion Gap 7 (5-15) 08/01/17 05:15 BUN 25 mg/dL (7-18) H 08/01/17 05:15 Creatinine 1.60 mg/dL (0.70-1.30) H 08/01/17 05:15 Est GFR (MDRD) Af Amer 54 mL/min (>60) L 08/01/17 05:15 Est GFR (MDRD) Non-Af 45 mL/min (>60) L 08/01/17 05:15 BUN/Creatinine Ratio 15.6 RATIO (10-20) 08/01/17 05:15 Glucose 130 mg/dL (74-106) H 08/01/17 05:15 Assessment/Plan: Psychotropic Medications: Unnecessary Medications: Bowel Regimen: - Provider Comments Provider responsibility: Provider responsible to enter orders to implement recommendations Provider Comments to Recommendations by Pharmacy: Agree
--- NOTE | 2017-08-03 16:40 | PHA.CONS_ITS ---
<Vern Warren D - Last Filed: 08/03/17 16:31> Progress Note - Pharmacy Subjective: TCU Admission Objective: Allergies No Known Allergies Allergy (Verified 07/23/17 06:54) Home Medications Medication Instructions Recorded Multivitamins,Therapeutic 1 tab PO DAILY 07/02/14 [Multivitamin] Acetaminophen 650 mg PO Q6H PRN 07/18/17 Albuterol Inhaler [Ventolin Hfa] 2 puff INHALATION Q4H PRN PRN 07/18/17 Aspirin [Aspirin, Baby] 81 mg PO DAILY@0800 07/18/17 Insulin Detemir [Levemir FlexPen] 5 units SC BID 07/23/17 Iron Polysaccharide Complex 150 mg PO DAILYCM 07/23/17 [Ferrex 150] Polyethylene Glycol 3350 [Miralax] 17 gm PO DAILY 07/23/17 Senna [Senokot] 1 tablet PO BID 07/23/17 Trazodone HCl [Desyrel] 50 mg PO QHS 07/23/17 Warfarin [Coumadin] 1 mg PO DAILY 07/23/17 Benzonatate [Tessalon Perle] 100 mg PO 4X/DAY PRN PRN capsule 07/27/17 Guaifenesin/Codeine [Robitussin AC] 5 - 10 ml PO Q6H PRN PRN #250 ml 07/27/17 Magnesium Hydroxide [Milk Of 30 ml PO DAILY PRN PRN udc 07/30/17 Magnesia] Amiodarone HCl [Cordarone] 200 mg PO DAILY 07/31/17 Carvedilol [Coreg (Beta Severo)] 3.125 mg PO BID 07/31/17 Furosemide [Lasix] 40 mg PO BID@1000,1800 07/31/17 Insulin Aspart [Novolog Flexpen] See Protocol SC ACHS 07/31/17 Spironolactone [Aldactone] 12.5 mg PO DAILY 07/31/17 Current Medications Generic Name Dose Route Start Last Admin Trade Name Freq PRN Reason Stop Dose Admin Acetaminophen 1,000 mg 07/31/17 19:28 Tylenol PO Q8H PRN MILD PAIN (1-3/10) Albuterol Sulfate 2 puff 07/31/17 10:57 Ventolin Hfa (Sp) INHALATION Q4H PRN PRN SHORTNESS OF BREATH Amiodarone HCl 200 mg 08/01/17 06:00 08/03/17 06:09 Cordarone PO 200 mg DAILY [facility] Administration Aspirin 81 mg 08/01/17 08:00 08/03/17 08:37 Aspirin, Baby PO 81 mg DAILY@0800 [facility] Administration Benzonatate 100 mg 07/31/17 10:57 08/02/17 21:35 Tessalon Perle PO 100 mg 4X/DAY PRN PRN Administration COUGH Bisacodyl 10 mg 07/31/17 10:54 Dulcolax RECTAL DAILY PRN Constipation Calamine/Phenol 1 applic 07/31/17 14:00 08/03/17 13:26 Calmoseptine Ointment TOPICAL 1 applicatio TID [facility] Administration Protocol Carvedilol 3.125 mg 07/31/17 18:00 08/03/17 06:09 Coreg PO 3.125 mg BID [facility] Administration Furosemide 20 mg 08/04/17 06:00 Lasix PO DAILY [facility] Guaifenesin/Codeine Phosphate 5 - 10 ml 07/31/17 10:57 08/03/17 14:09 Robitussin Ac PO 10 ml Q6H PRN PRN Administration COUGH Insulin Detemir 5 units 07/31/17 18:00 08/03/17 06:09 Levemir (Bkc) SC 5 units BID [facility] Administration Multivitamins 1 tablet 08/01/17 08:00 08/03/17 08:37 Multivitamin PO 1 tablet DAILY@0800 [facility] Administration Nystatin 1 applic 07/31/17 22:00 08/03/17 06:10 Mycostatin Powder TOPICAL 1 applicatio 0600,2200 [facility] Administration Protocol Polyethylene Glycol 17 gm 08/01/17 06:00 08/03/17 06:17 Miralax PO Not Given DAILY [facility] Polysaccharide Iron Complex 150 mg 08/01/17 08:00 08/03/17 08:37 Ferrex 150 PO 150 mg DAILYCM [facility] Administration Senna/Docusate Sodium 1 tablet 08/01/17 06:00 08/03/17 06:17 Senokot-S, Shantell-Colace PO Not Given BID [facility] Trazodone HCl 50 mg 07/31/17 22:00 08/02/17 21:35 Desyrel PO 50 mg QHS [facility] Administration Warfarin Sodium 2 mg 08/03/17 17:00 Coumadin (Pbkc) PO DAILY@1700 [facility] Problem List (Last Reviewed 05/17/17 @ 15:28 by Trice Bowling) Acute respiratory failure (Acute) Aortic stenosis (Chronic) Acute delirium (Acute) Change in mental status (Acute) Vital Signs Temp Pulse Resp BP Pulse Ox 98.1 F 59 L 18 88/40 L 94 08/03/17 11:01 08/03/17 11:01 08/03/17 11:01 08/03/17 11:01 08/03/17 11:01 Oxygen Flow Rate 1 Oxygen Delivery Method Nasal Cannula Weight: 76.345 kg Body Mass Index (BMI) 28.8 Finger Stick Blood Glucose 243 Sodium 137 mmol/L (136-145) 08/01/17 05:15 Potassium 3.4 mmol/L (3.5-5.1) L 08/01/17 05:15 Chloride 95 mmol/L (98-107) L 08/01/17 05:15 Carbon Dioxide 35.0 mmol/L (21.0-32.0) H 08/01/17 05:15 Anion Gap 7 (5-15) 08/01/17 05:15 BUN 25 mg/dL (7-18) H 08/01/17 05:15 Creatinine 1.60 mg/dL (0.70-1.30) H 08/01/17 05:15 Est GFR (MDRD) Af Amer 54 mL/min (>60) L 08/01/17 05:15 Est GFR (MDRD) Non-Af 45 mL/min (>60) L 08/01/17 05:15 BUN/Creatinine Ratio 15.6 RATIO (10-20) 08/01/17 05:15 Glucose 130 mg/dL (74-106) H 08/01/17 05:15 Assessment/Plan: 1) Pain APAP for mild pain. Continue to monitor prn medication use, daily pain scores. 2) AFib/CHF Warfarin goal INR 2-3, sacubitril/valsartan, furosemide, carvedilol, amiodarone, ASA. BP/HR low end of normal range, last K slightly below normal rage, BUN/SCr at baseline, INR below goal range. Continue to monitor BP/HR, s/s hypotension/bradycardia, renal function, electrolytes, INR, s/s bleeding. 3) DM2 Insulin detemir twice daily. Avg BGT < 200 mg/dL. Continue to monitor s/s hyper/hypoglycemia. 4) Derm Calmoseptine, nystatin powder topically. Continue to monitor clinically. 5) Nutrition Multivitamin, Fe. Continue to monitor clinically. 6) Pulm Guaifenesin/codeine, benzonatate, albuterol prn. Continue to monitor prn medication use, for exacerbation. Psychotropic Medications: 7) Insomnia Trazodone at HS for sleep. Continue to monitor for insomnia. Unnecessary Medications: None Bowel Regimen: 8) Senna/s, PEG, prn bisacodyl. Continue to monitor prn medication use, for constipation/diarrhea. Date of Note:: 08/03/17 - Provider Comments Provider responsibility: Provider responsible to enter orders to implement recommendations <Ramesh Pabon Chi - Last Filed: 08/03/17 21:31> Progress Note - Pharmacy Subjective: [] Objective: Allergies No Known Allergies Allergy (Verified 07/23/17 06:54) Home Medications Medication Instructions Recorded Multivitamins,Therapeutic 1 tab PO DAILY 07/02/14 [Multivitamin] Acetaminophen 650 mg PO Q6H PRN 07/18/17 Albuterol Inhaler [Ventolin Hfa] 2 puff INHALATION Q4H PRN PRN 07/18/17 Aspirin [Aspirin, Baby] 81 mg PO DAILY@0800 07/18/17 Insulin Detemir [Levemir FlexPen] 5 units SC BID 07/23/17 Iron Polysaccharide Complex 150 mg PO DAILYCM 07/23/17 [Ferrex 150] Polyethylene Glycol 3350 [Miralax] 17 gm PO DAILY 07/23/17 Senna [Senokot] 1 tablet PO BID 07/23/17 Trazodone HCl [Desyrel] 50 mg PO QHS 07/23/17 Warfarin [Coumadin] 1 mg PO DAILY 07/23/17 Benzonatate [Tessalon Perle] 100 mg PO 4X/DAY PRN PRN capsule 07/27/17 Guaifenesin/Codeine [Robitussin AC] 5 - 10 ml PO Q6H PRN PRN #250 ml 07/27/17 Magnesium Hydroxide [Milk Of 30 ml PO DAILY PRN PRN udc 07/30/17 Magnesia] Amiodarone HCl [Cordarone] 200 mg PO DAILY 07/31/17 Carvedilol [Coreg (Beta Severo)] 3.125 mg PO BID 07/31/17 Furosemide [Lasix] 40 mg PO BID@1000,1800 07/31/17 Insulin Aspart [Novolog Flexpen] See Protocol SC ACHS 07/31/17 Spironolactone [Aldactone] 12.5 mg PO DAILY 07/31/17 Current Medications Generic Name Dose Route Start Last Admin Trade Name Freq PRN Reason Stop Dose Admin Acetaminophen 1,000 mg 07/31/17 19:28 Tylenol PO Q8H PRN MILD PAIN (1-08/11) Albuterol Sulfate 2 puff 07/31/17 10:57 Ventolin Hfa (Sp) INHALATION Q4H PRN PRN SHORTNESS OF BREATH Amiodarone HCl 200 mg 08/01/17 06:00 08/03/17 06:09 Cordarone PO 200 mg DAILY [facility] Administration Aspirin 81 mg 08/01/17 08:00 08/03/17 08:37 Aspirin, Baby PO 81 mg DAILY@0800 [facility] Administration Benzonatate 100 mg 07/31/17 10:57 08/02/17 21:35 Tessalon Perle PO 100 mg 4X/DAY PRN PRN Administration COUGH Bisacodyl 10 mg 07/31/17 10:54 Dulcolax RECTAL DAILY PRN Constipation Calamine/Phenol 1 applic 07/31/17 14:00 08/03/17 20:38 Calmoseptine Ointment TOPICAL 1 applicatio TID [facility] Administration Protocol Carvedilol 3.125 mg 07/31/17 18:00 08/03/17 18:01 Coreg PO 3.125 mg BID [facility] Administration Furosemide 20 mg 08/04/17 06:00 Lasix PO DAILY [facility] Guaifenesin/Codeine Phosphate 5 - 10 ml 07/31/17 10:57 08/03/17 14:09 Robitussin Ac PO 10 ml Q6H PRN PRN Administration COUGH Insulin Detemir 5 units 07/31/17 18:00 08/03/17 18:02 Levemir (Bkc) SC 5 units BID [facility] Administration Multivitamins 1 tablet 08/01/17 08:00 08/03/17 08:37 Multivitamin PO 1 tablet DAILY@0800 [facility] Administration Nystatin 1 applic 07/31/17 22:00 08/03/17 20:37 Mycostatin Powder TOPICAL 1 applicatio 0600,2200 [facility] Administration Protocol Polyethylene Glycol 17 gm 08/01/17 06:00 08/03/17 06:17 Miralax PO Not Given DAILY [facility] Polysaccharide Iron Complex 150 mg 08/01/17 08:00 08/03/17 08:37 Ferrex 150 PO 150 mg DAILYCM [facility] Administration Senna/Docusate Sodium 1 tablet 08/01/17 06:00 08/03/17 17:59 Senokot-S, Shantell-Colace PO Not Given BID [facility] Trazodone HCl 50 mg 07/31/17 22:00 08/03/17 20:36 Desyrel PO 50 mg QHS [facility] Administration Warfarin Sodium 2 mg 08/03/17 17:00 08/03/17 18:01 Coumadin (Pbkc) PO 2 mg DAILY@1700 [facility] Administration Problem List (Last Reviewed 05/17/17 @ 15:28 by Trice Bowling) Acute respiratory failure (Acute) Aortic stenosis (Chronic) Acute delirium (Acute) Change in mental status (Acute) Vital Signs Temp Pulse Resp BP Pulse Ox 97.6 F L 45 L 18 103/59 L 97 08/03/17 16:00 08/03/17 16:00 08/03/17 20:15 08/03/17 16:00 08/03/17 16:00 Oxygen Flow Rate 1 Oxygen Delivery Method Room Air Weight: 76.345 kg Body Mass Index (BMI) 28.8 Finger Stick Blood Glucose 243 Sodium 137 mmol/L (136-145) 08/01/17 05:15 Potassium 3.4 mmol/L (3.5-5.1) L 08/01/17 05:15 Chloride 95 mmol/L (98-107) L 08/01/17 05:15 Carbon Dioxide 35.0 mmol/L (21.0-32.0) H 08/01/17 05:15 Anion Gap 7 (5-15) 08/01/17 05:15 BUN 25 mg/dL (7-18) H 08/01/17 05:15 Creatinine 1.60 mg/dL (0.70-1.30) H 08/01/17 05:15 Est GFR (MDRD) Af Amer 54 mL/min (>60) L 08/01/17 05:15 Est GFR (MDRD) Non-Af 45 mL/min (>60) L 08/01/17 05:15 BUN/Creatinine Ratio 15.6 RATIO (10-20) 08/01/17 05:15 Glucose 130 mg/dL (74-106) H 08/01/17 05:15 Assessment/Plan: Psychotropic Medications: Unnecessary Medications: Bowel Regimen: - Provider Comments Provider responsibility: Provider responsible to enter orders to implement recommendations Provider Comments to Recommendations by Pharmacy: Agree
[2017-08-03 17:16] LABS: Bedside Glucose 216 mg/dL (70-110)
[2017-08-03 20:15] VITALS: RESP 18
--- NOTE | 2017-08-03 20:23 | NURSING ---
C/O SHEETS ARE RUBBING AGAINST PT BACK INCISION. DRY STERILE DRESSING APPLIED
[2017-08-03] MEDS: traZODone 50 MG Tablet PO (20:36)
[2017-08-03 21:06] LABS: Bedside Glucose 155 mg/dL (70-110)
[2017-08-04] MEDS: Amiodarone 200 MG Tablet PO (05:03)
[2017-08-04] MEDS: SACUBITRIL/VALSARTAN 24/26 MG TABLET 1 EACH PO ×2 (05:03→18:34)
[2017-08-04] MEDS: Menthol/Lanolin/Calamine/Znox 113 GM Tube 1 APPLIC TOPICAL ×3 (05:03→21:44)
[2017-08-04] MEDS: Carvedilol 3.125 MG TABLET PO ×2 (05:03→18:34)
[2017-08-04] MEDS: Furosemide 20 MG Tablet PO (05:07)
[2017-08-04] MEDS: Senna/Docusate Sodium 1 Tablet PO (05:12)
[2017-08-04] MEDS: Polyethylene Glycol 3350 17 GM PACKET PO (05:13)
[2017-08-04] MEDS: Nystatin Powder 15gm Bottle 1 APPLIC TOPICAL ×2 (05:13→21:44)
[2017-08-04 06:52] VITALS: O2SAT 97
[2017-08-04 06:56] LABS: Bedside Glucose 111 mg/dL (70-110)
[2017-08-04 08:02] LABS: International Normalized Ratio 1.4; Prothrombin Time (Protime)PT. 17.4 SECONDS (11.7-14.9)
[2017-08-04] MEDS: Iron Polysaccharide Complex 150 MG CAPSULE PO (09:20)
[2017-08-04] MEDS: Aspirin 81 MG TAB.CHEW PO (09:20)
[2017-08-04] MEDS: Multivitamins,Therapeutic Tablet 1 TABLET PO (09:21)
[2017-08-04 10:00] VITALS: BP 86/57; PULSE 86; RESP 18; TEMP 36.6; O2SAT 96
[2017-08-04 11:21] LABS: Bedside Glucose 233 mg/dL (70-110)
--- NOTE | 2017-08-04 15:03 | NURSING ---
Dr. Pabon aware of INR today, 1.4, Coumadin increased to 2.5 mg daily, pt updated
[2017-08-04 15:35] VITALS: BP 86/57; PULSE 86; RESP 18; TEMP 36.1; O2SAT 96
[2017-08-04 16:21] VITALS: BP 102/65; PULSE 86
[2017-08-04 17:05] LABS: Bedside Glucose 153 mg/dL (70-110)
[2017-08-04 20:00] VITALS: PULSE 88; O2SAT 98
[2017-08-04 20:51] LABS: Bedside Glucose 203 mg/dL (70-110)
[2017-08-04] MEDS: traZODone 50 MG Tablet PO (21:44)
[2017-08-05 06:56] VITALS: O2SAT 96
[2017-08-05 07:11] LABS: International Normalized Ratio 1.4; Prothrombin Time (Protime)PT. 17.5 SECONDS (11.7-14.9)
[2017-08-05 07:16] LABS: Bedside Glucose 116 mg/dL (70-110)
[2017-08-05] MEDS: Menthol/Lanolin/Calamine/Znox 113 GM Tube 1 APPLIC TOPICAL ×3 (07:28→21:07)
[2017-08-05] MEDS: Nystatin Powder 15gm Bottle 1 APPLIC TOPICAL ×2 (07:29→21:08)
[2017-08-05] MEDS: SACUBITRIL/VALSARTAN 24/26 MG TABLET 1 EACH PO ×2 (07:29→18:11)
[2017-08-05] MEDS: Amiodarone 200 MG Tablet PO (07:29)
[2017-08-05] MEDS: Senna/Docusate Sodium 1 Tablet PO ×2 (07:30→18:11)
[2017-08-05] MEDS: Polyethylene Glycol 3350 17 GM PACKET PO (07:30)
--- NOTE | 2017-08-05 07:41 | NURSING ---
Addendum entered by Melina Fernandez 08/05/17 09:29: Pt aware of med changes, BP taken again, currently 102/62, HR 85, cont to monitor Original Note: Dr. Pabon updated on pt's BPs being low this morning, 69/50 in right arm, 90/63 in left arm, HR 94. N.O. to d/c Lasix and cut Coreg in half.
[2017-08-05] MEDS: Aspirin 81 MG TAB.CHEW PO (08:16)
[2017-08-05] MEDS: Iron Polysaccharide Complex 150 MG CAPSULE PO (08:16)
[2017-08-05] MEDS: Multivitamins,Therapeutic Tablet 1 TABLET PO (08:16)
[2017-08-05 09:30] VITALS: BP 102/62; PULSE 85
[2017-08-05 11:56] LABS: Bedside Glucose 199 mg/dL (70-110)
[2017-08-05 15:33] VITALS: BP 86/64; PULSE 87; RESP 18; TEMP 36.9; O2SAT 97
[2017-08-05 17:05] LABS: Bedside Glucose 133 mg/dL (70-110)
[2017-08-05] MEDS: Carvedilol 3.125 MG TABLET 1.5625 MG PO (18:12)
[2017-08-05 18:17] VITALS: BP 107/78; PULSE 95
[2017-08-05 21:06] LABS: Bedside Glucose 176 mg/dL (70-110)
[2017-08-05] MEDS: traZODone 50 MG Tablet PO (21:08)
[2017-08-05 21:09] VITALS: PULSE 91; O2SAT 96
[2017-08-06 06:05] LABS: International Normalized Ratio 1.5; Prothrombin Time (Protime)PT. 18.5 SECONDS (11.7-14.9)
[2017-08-06] MEDS: Menthol/Lanolin/Calamine/Znox 113 GM Tube 1 APPLIC TOPICAL ×2 (06:05→20:35)
[2017-08-06] MEDS: Amiodarone 200 MG Tablet PO (06:06)
[2017-08-06] MEDS: Carvedilol 3.125 MG TABLET 1.5625 MG PO ×2 (06:06→17:52)
[2017-08-06] MEDS: Nystatin Powder 15gm Bottle 1 APPLIC TOPICAL ×2 (06:06→20:35)
[2017-08-06] MEDS: SACUBITRIL/VALSARTAN 24/26 MG TABLET 1 EACH PO ×2 (06:06→17:52)
[2017-08-06 07:10] LABS: Bedside Glucose 140 mg/dL (70-110)
[2017-08-06 07:23] VITALS: O2SAT 95
[2017-08-06] MEDS: Aspirin 81 MG TAB.CHEW PO (08:38)
[2017-08-06] MEDS: Iron Polysaccharide Complex 150 MG CAPSULE PO (08:38)
[2017-08-06] MEDS: Multivitamins,Therapeutic Tablet 1 TABLET PO (08:38)
--- NOTE | 2017-08-06 08:52 | NURSING ---
PT THREW UP BREAKFAST, 300CC. PT STATED HE HAD MUCUS AND SOMETIMES HE THROWS IT UP. REPORTED TO BENNY MEDINA
[2017-08-06 12:00] LABS: Bedside Glucose 168 mg/dL (70-110)
--- NOTE | 2017-08-06 14:06 | CASEMGMT ---
Insurance Continued stay denied. Last cover day being 08/08/17 and discharge or resident financial responsibility to begin on 08/09/17. Auth#[id number] Jade MAY, DRY MIXER
--- NOTE | 2017-08-06 14:07 | CASEMGMT ---
Social Work Spoke with resident and resident spouse. This socially responsible investment adviser communicating to resident that continued stay approval has been denied at this time with a last cover day of 08/08/17 and a discharge or resident financial responsibility to begin on 08/09/17. Resident and resident spouse are not agreeable to discharge date and are deciding to appeal. This socially responsible investment adviser educating resident and resident spouse on appeal process. Resident spouse to initiate appeal. In the event that resident does not win appeal resident is planning to discharge home with spouse and home health services. Support given. Proposed discharge date: 08/09/17 pending appeal. PLAN: Discharge home with spouse if appeal is lost. Resident and resident spouse voicing concern of resident being able to be safe within the home at this time. Resident and resident spouse aware of senior care options and private duty home health care. Therapy is also not agreeable to discharge date and are agreeing with resident decision for an appeal as therapy believes resident is capable of progressing further and then will be safe to discharge home after more rehabilitation. Jade STOCKTONW, PCAT INSTRUCTOR
--- NOTE | 2017-08-06 14:11 | CASEMGMT ---
Brief interview for mental status (BIMS) and resident mood interview (PHQ-9) completed on this day. BIMS score 05/18. PHQ-9 score 08/28
[2017-08-06 15:52] VITALS: BP 106/72; PULSE 91; RESP 20; TEMP 36.9; O2SAT 96
[2017-08-06 17:16] LABS: Bedside Glucose 136 mg/dL (70-110)
--- NOTE | 2017-08-06 20:18 | PCM.DC ---
- Discharge Diagnoses Current Active Problems: Current Active and Chronic Problems (Last Reviewed 05/17/17 @ 15:28 by Trice Bowling) Acute respiratory failure (Acute) Aortic stenosis (Chronic) Acute delirium (Acute) Change in mental status (Acute) You will use the following diet at home:: No restrictions, Regular Your food should be the consistency of: Regular Your liquids should be the consistency of: Regular/Thin Discharge Activity: Return to Normal Activity, May Shower, Use Walker May resume sexual activity in: 6 weeks Weight Bearing Status: Weight bearing as tolerated Call your doctor if you observe: Fever of 101 or Higher, Inability to urinate, Inability to have a bowel movement, Shortness of breath, Chest pain, Uncontrolled pain Allergies/Adverse Reactions: Allergies No Known Allergies Allergy (Verified 07/23/17 06:54) Medications to take at Discharge Multivitamins,Therapeutic [Multivitamin] 1 tab PO DAILY 07/02/14 Aspirin [Aspirin, Baby] 81 mg PO DAILY@0800 07/18/17 Acetaminophen [Tylenol] 1,000 mg PO Q8H PRN tablet 08/06/17 Albuterol Inhaler [Ventolin Hfa] 2 puff INHALATION Q4H PRN PRN #1 inhaler 08/06/17 Amiodarone HCl [Cordarone] 200 mg PO DAILY #30 tab 08/06/17 Benzonatate [Tessalon Perle] 100 mg PO 4X/DAY PRN PRN #120 cap 08/06/17 Carvedilol [Coreg (Beta Severo)] 1.5625 mg PO BID #30 tab 08/06/17 Guaifenesin/Codeine [Robitussin AC] 5 - 10 ml PO Q6H PRN PRN #250 ml 08/06/17 Insulin Detemir [Levemir FlexPen] 5 units SC BID #1 insuln.pen 08/06/17 Iron Polysaccharide Complex [Ferrex 150] 150 mg PO DAILYCM #30 cap 08/06/17 Menthol/Lanolin/Calamine/Znox [Calmoseptine Ointment] 1 applic TOPICAL TID tube 08/06/17 Nystatin Powder [Mycostatin Powder] 1 applic TOPICAL 0600,2200 bottle 08/06/17 Sacubitril/Valsartan 24/26 mg [Entresto 24 mg-26 mg Tablet] 1 ea PO BID #30 tab 08/06/17 Trazodone HCl [Desyrel] 50 mg PO QHS #30 tab 08/06/17 Warfarin [Coumadin] 3 mg PO DAILY@1700 #30 tab 08/06/17 The following prescriptions were given: Albuterol Inhaler [Ventolin Hfa] 2 puff INHALATION Q4H PRN PRN #1 inhaler PRN Reason: Shortness Of Breath Guaifenesin/Codeine [Robitussin AC] 5 - 10 ml PO Q6H PRN PRN #250 ml PRN Reason: COUGH Amiodarone HCl [Cordarone] 200 mg PO DAILY #30 tab Benzonatate [Tessalon Perle] 100 mg PO 4X/DAY PRN PRN #120 cap PRN Reason: COUGH Iron Polysaccharide Complex [Ferrex 150] 150 mg PO DAILYCM #30 cap Trazodone HCl [Desyrel] 50 mg PO QHS #30 tab Warfarin [Coumadin] 3 mg PO DAILY@1700 #30 tab Carvedilol [Coreg (Beta Severo)] 1.5625 mg PO BID #30 tab Insulin Detemir [Levemir FlexPen] 5 units SC BID #1 insuln.pen Sacubitril/Valsartan 24/26 mg [Entresto 24 mg-26 mg Tablet] 1 ea PO BID #30 tab Orders to be completed after discharge: Prothrombin Time w/INR Time Frame: 1 Day, Location: Laboratory Primary Care Physician: Dusty Almanza MD [Primary Care Provider] - Please follow up with your Primary Care Physician in: 1 week. Please Follow Up With: Dr. Mckeon When: 1 to 2 months Please Follow Up With: Edna Danielson for Dr. Higgins When: 2 to 4 weeks Proposed Discharge Date: 08/09/17
--- NOTE | 2017-08-06 20:21 | PCM.DC.SUM ---
Discharge Date and Diagnosis - Problem List Patient Problems: Active and Suspected Problems (Last Reviewed 05/17/17 @ 15:28 by Trice Bowling) Acute respiratory failure (Acute) Acute delirium (Acute) Change in mental status (Acute) Date of Admission: 07/31/17 Date of Discharge: 08/09/17 - Primary Discharge Diagnosis Active and Suspected Problems (Last Reviewed 05/17/17 @ 15:28 by Trice Bowling) Acute respiratory failure (Acute) Acute delirium (Acute) Change in mental status (Acute) - Secondary Discharge Diagnosis Chronic Problems (Last Reviewed 05/17/17 @ 15:28 by Trice Bowling) Aortic stenosis (Chronic) Mitral valve insufficiency (Chronic) Repair [facility] 06/2017 Diabetes mellitus (Chronic) Chronic kidney disease (Chronic) H/O aortic valve replacement (Chronic) 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) Type 2 diabetes mellitus with hyperglycemia (Chronic) Cardiomyopathy in disease classified elsewhere (Chronic) 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) Hypertension (Chronic) Dyspnea on exertion (Chronic) Allergic rhinitis (Chronic) Hospital Course and Treatment Imaging Results: 07/31/17 10:50 Diet: Cardiac/Low Cholesterol Food consistency:: Regular Liquid Consistency:: Regular/Thin Dietary Modifications:: Fluid Restricted Diet Is pt able to select menu?: Yes Diet Comments: 1500 CC FLUID RESTRICTION Labs (Last 48 Hours) 08/04/17 08/05/17 08/05/17 20:38 06:20 07:01 PT 17.5 H INR 1.4 POC Glucose 203 H 116 H 08/05/17 08/05/17 08/05/17 11:18 16:55 21:01 PT INR POC Glucose 199 H 133 H 176 H 08/06/17 08/06/17 08/06/17 05:05 06:57 11:51 PT 18.5 H INR 1.5 POC Glucose 140 H 168 H 08/06/17 16:58 PT INR POC Glucose 136 H Operations: cholecystecomy - Laparoscopic converted to open Procedures: None Summary of Care Provided: The patient is a 77 year old Male with below past medical history hospitalized for change in mental status secondary to acute respiratory failure from heart failure with reduced ejection fraction, admitted to TCU with debility, for rehabilitation, strengthening, prior to discharge home with spouse. On TCU, resident was started on Entresto 24mg/26mg twice daily, tolerating it well with discontinuation of loop diuretic, potassium sparing diuretic, recommend titrating up to Entresto 49mg/51mg twice daily on 08/14/2017. [] Discharge home with spouse, and home health services. Home Health ordered. Discharge Diet: No Restrictions Discharge Activity: Return to Normal Activity, May Shower, Use Walker May resume sexual activity in: 6 weeks Weight Bearing Status: Weight bearing as tolerated Call your doctor if you observe: Fever of 101 or Higher, Inability to urinate, Inability to have a bowel movement, Shortness of breath, Chest pain, Uncontrolled pain Home Medications: Medications to take at Discharge Multivitamins,Therapeutic [Multivitamin] 1 tab PO DAILY 07/02/14 Aspirin [Aspirin, Baby] 81 mg PO DAILY@0800 07/18/17 Acetaminophen [Tylenol] 1,000 mg PO Q8H PRN tablet 08/06/17 Albuterol Inhaler [Ventolin Hfa] 2 puff INHALATION Q4H PRN PRN #1 inhaler 08/06/17 Amiodarone HCl [Cordarone] 200 mg PO DAILY #30 tab 08/06/17 Benzonatate [Tessalon Perle] 100 mg PO 4X/DAY PRN PRN #120 cap 08/06/17 Carvedilol [Coreg (Beta Severo)] 1.5625 mg PO BID #30 tab 08/06/17 Guaifenesin/Codeine [Robitussin AC] 5 - 10 ml PO Q6H PRN PRN #250 ml 08/06/17 Insulin Detemir [Levemir FlexPen] 5 units SC BID #1 insuln.pen 08/06/17 Iron Polysaccharide Complex [Ferrex 150] 150 mg PO DAILYCM #30 cap 08/06/17 Menthol/Lanolin/Calamine/Znox [Calmoseptine Ointment] 1 applic TOPICAL TID tube 08/06/17 Nystatin Powder [Mycostatin Powder] 1 applic TOPICAL 0600,2200 bottle 08/06/17 Sacubitril/Valsartan 24/26 mg [Entresto 24 mg-26 mg Tablet] 1 ea PO BID #30 tab 08/06/17 Trazodone HCl [Desyrel] 50 mg PO QHS #30 tab 08/06/17 Warfarin [Coumadin] 3 mg PO DAILY@1700 #30 tab 08/06/17 Following Prescrptions Were Given to Patient: Albuterol Inhaler [Ventolin Hfa] 2 puff INHALATION Q4H PRN PRN #1 inhaler PRN Reason: Shortness Of Breath Guaifenesin/Codeine [Robitussin AC] 5 - 10 ml PO Q6H PRN PRN #250 ml PRN Reason: COUGH Amiodarone HCl [Cordarone] 200 mg PO DAILY #30 tab Benzonatate [Tessalon Perle] 100 mg PO 4X/DAY PRN PRN #120 cap PRN Reason: COUGH Iron Polysaccharide Complex [Ferrex 150] 150 mg PO DAILYCM #30 cap Trazodone HCl [Desyrel] 50 mg PO QHS #30 tab Warfarin [Coumadin] 3 mg PO DAILY@1700 #30 tab Carvedilol [Coreg (Beta Severo)] 1.5625 mg PO BID #30 tab Insulin Detemir [Levemir FlexPen] 5 units SC BID #1 insuln.pen Sacubitril/Valsartan 24/26 mg [Entresto 24 mg-26 mg Tablet] 1 ea PO BID #30 tab Other Amb Orders: Prothrombin Time w/INR Time Frame: 1 Day, Location: Laboratory Primary Care Physician: Dutsy Almanza MD [Primary Care Provider] - Please follow up with your Primary Care Physician in: 1 week. Please Follow Up With: Dr. Mckeon When: 1 to 2 months Please Follow Up With: Edna Danielson for Dr. Higgins When: 2 to 4 weeks Disposition: Home with Home Health Minutes spent on discharge:: 35 Patient Condition:: Stable Meaningful Use Info Meaningful Use Diagnoses (Choose all that apply): CHF - CHF DIMAS/ARB ordered at discharge?: Yes Documented LVEF (%): 15
--- NOTE | 2017-08-06 20:26 | PCM.PN.HH ---
Home Health Note - Plan Overview of reason of hospitalization: The patient is a 77 year old Male with below past medical history hospitalized for change in mental status secondary to acute respiratory failure from heart failure with reduced ejection fraction, admitted to TCU with debility, for rehabilitation, strengthening, prior to discharge home with spouse. On TCU, resident was started on Entresto 24mg/26mg twice daily, tolerating it well with discontinuation of loop diuretic, potassium sparing diuretic, recommend titrating up to Entresto 49mg/51mg twice daily on 08/14/2017. [] Discharge home with spouse, and home health services. Home Health ordered. Problems: Patient was seen for (Last Reviewed 05/17/17 @ 15:28 by Trice Bowling) Acute respiratory failure (Acute) Aortic stenosis (Chronic) Acute delirium (Acute) Change in mental status (Acute) Complete List of Medical Problems (Last Reviewed 05/17/17 @ 15:28 by Trice Bowling) Acute respiratory failure (Acute) Aortic stenosis (Chronic) Acute delirium (Acute) Change in mental status (Acute) CHRIST (acute kidney injury) (Acute) Mitral valve insufficiency (Chronic) Acute on chronic combined systolic (congestive) and diastolic (congestive) heart failure (Acute) Diabetes mellitus (Chronic) Chronic kidney disease (Chronic) Acute respiratory failure with hypercapnia (Acute) Heart failure with reduced ejection fraction (Acute) H/O aortic valve replacement (Chronic) Metabolic encephalopathy (Acute) Acute renal failure superimposed on stage 3 chronic kidney disease (Acute) 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) Type 2 diabetes mellitus with hyperglycemia (Chronic) Acute on chronic combined systolic and diastolic heart failure (Acute) Cough in adult (Acute) Cardiomyopathy in disease classified elsewhere (Chronic) 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) Hypertension (Chronic) Dyspnea on exertion (Chronic) Troponin level elevated (Acute) Allergic rhinitis (Chronic) - Requirements and Reasons Disciplines Needed/Ordered: Senior Living, Physical Therapy Reason for Disciplines: Disease Specific Monitoring/education, Medication Management/Knowledge Deficit, Gait Training, Stair Training, Fall Prevention, Home Safety/Equipment Instruction, Balance and/or Posture Training, Transfer Training Related To: Limited/Poor Endurance, Shortness of Breath with Activity, Unsteady Gait/Balance, Fall Risk Patient is unable to leave the home: Without Aid of Supportive Devices (crutches, cane, wheelchair, walker), Without the assistance of another person - Additional Disciplines Additional Disciplines Needed/Ordered: Occupational Therapy
[2017-08-06] MEDS: traZODone 50 MG Tablet PO (20:35)
[2017-08-06 21:21] LABS: Bedside Glucose 161 mg/dL (70-110)
[2017-08-07] MEDS: Menthol/Lanolin/Calamine/Znox 113 GM Tube 1 APPLIC TOPICAL ×3 (05:29→21:27)
[2017-08-07 05:31] VITALS: BP 95/74; PULSE 91
[2017-08-07] MEDS: Amiodarone 200 MG Tablet PO (05:34)
[2017-08-07] MEDS: SACUBITRIL/VALSARTAN 24/26 MG TABLET 1 EACH PO ×2 (05:35→18:08)
[2017-08-07] MEDS: Nystatin Powder 15gm Bottle 1 APPLIC TOPICAL ×2 (05:37→21:27)
[2017-08-07 05:41] LABS: Bedside Glucose 99 mg/dL (70-110)
[2017-08-07 06:02] LABS: International Normalized Ratio 1.8; Prothrombin Time (Protime)PT. 21.1 SECONDS (11.7-14.9)
[2017-08-07 07:04] VITALS: O2SAT 96
[2017-08-07 07:41] VITALS: BP 100/66; PULSE 91
--- NOTE | 2017-08-07 08:43 | NURSING ---
dr Pabon notified of low BP this am and recheck BP, ok to give coreg 1.5625mg this AM.
[2017-08-07] MEDS: Carvedilol 3.125 MG TABLET 1.5625 MG PO ×2 (09:04→18:10)
[2017-08-07] MEDS: Multivitamins,Therapeutic Tablet 1 TABLET PO (09:06)
[2017-08-07] MEDS: Aspirin 81 MG TAB.CHEW PO (09:06)
[2017-08-07] MEDS: Iron Polysaccharide Complex 150 MG CAPSULE PO (09:06)
[2017-08-07 11:26] LABS: Bedside Glucose 125 mg/dL (70-110)
--- NOTE | 2017-08-07 15:05 | CHAPLAIN ---
Type of Pastoral Visit ___ Initial Visit _x__ Follow-up Visit ___ On-call Visit ___ General Patient Visit ___ Spiritual Assessment ___ Family Conference ___ Bereavement ___ Rapid Response ___ Code Blue ___ Other (describe below) Pastoral Care Referral From _x__ Patient ___ Family ___ Nurse ___ Physician ___ Vice President Compliance ___ Newspaper Carrier ___ Other (describe below) Sacrament/Intervention _x__ Active listening ___ Anointing ___ Hoahaoism ___ Bereavement ___ Communion ___ Lorin exploration ___ ___ Life review ___ Prayer ___ Reconciliation ___ Sacrament of Sick ___ Supportive presence ___ Wedding ___ Other (describe below) Pastoral Comments
[2017-08-07 15:35] VITALS: BP 101/63; PULSE 97; RESP 17; TEMP 37.1; O2SAT 97
[2017-08-07 17:06] LABS: Bedside Glucose 136 mg/dL (70-110)
[2017-08-07 18:22] VITALS: BP 106/72; PULSE 91
[2017-08-07 20:09] VITALS: PULSE 87; O2SAT 96
[2017-08-07 21:11] LABS: Bedside Glucose 162 mg/dL (70-110)
[2017-08-07] MEDS: traZODone 50 MG Tablet PO (21:25)
[2017-08-08] MEDS: Carvedilol 3.125 MG TABLET 1.5625 MG PO ×2 (05:25→17:12)
[2017-08-08] MEDS: Amiodarone 200 MG Tablet PO (05:25)
[2017-08-08] MEDS: Nystatin Powder 15gm Bottle 1 APPLIC TOPICAL ×2 (05:26→20:52)
[2017-08-08] MEDS: SACUBITRIL/VALSARTAN 24/26 MG TABLET 1 EACH PO ×2 (05:26→17:13)
[2017-08-08] MEDS: Menthol/Lanolin/Calamine/Znox 113 GM Tube 1 APPLIC TOPICAL ×3 (05:26→20:52)
[2017-08-08 05:32] VITALS: BP 102/68; PULSE 89
[2017-08-08 06:50] VITALS: O2SAT 94
[2017-08-08 07:00] LABS: Absolute Lymphocyte Count 1.69 X10^3/ul (0.83-4.51); Absolute Neutrophil Count 0.7 X10^3/uL (2.0-7.7); Basophil# 0.01 X10^3/uL; Basophil% 0.3 % (0-1); Eosinophil# 0.27 X10^3/uL; Eosinophils% 8.3 % (0-5); Hematocrit 30.9 % (40-54); Hemoglobin 9.7 g/dl (13.0-16.5); Lymphocyte # 1.69 X10^3/ul (4.0); Lymphocyte % 51.8 % (19-41); Mean Corp Hgb Conc 31.4 g/gl (32-36); Mean Corpuscular Hgb 32.6 pg (27.0-32.0); Mean Corpuscular Volume 103.7 fL (80-94); Mean Platelet Vol. 10.2 fl (6.2-12.0); Monocyte# 0.53 X10^3/uL; Monocyte% 16.3 % (0-10); Neutrophil # 0.73 X10^3/uL (2.7-7.7); Neutrophil % 22.4 % (47-70); Platelet Count 185 K/mm3 (150-450); RBC Distribution Width CV 18.5 % (11.6-14.6); RBC Distribution Width SD 70.1 fl (35.1-43.9); Red Blood Count 2.98 M/mm3 (4.6-6.2); White Blood Count 3.3 K/mm3 (4.4-11.0)
[2017-08-08 07:06] LABS: Differential Indicated SCAN CRITERIA MET; POSITIVE COUNT NO; POSITIVE DIFFERENTIAL YES; POSITIVE MORPHOLOGY YES
[2017-08-08 07:13] LABS: Anion Gap 8 (5-15); BUN 18 mg/dL (7-18); BUN/Creat Ratio 12.2 RATIO (10-20); Calcium,Total 8.4 mg/dL (8.5-10.1); Chloride 104 mmol/L (98-107); Creatinine, Serum 1.47 mg/dL (0.70-1.30); EST Glomerular Filtration Rate 50 mL/min (>60); Est Glom Filt Rate - Afr Amer 60 mL/min (>60); Estimated Creatinine Clearance 36.36 ml/min; Glucose 91 mg/dL (74-106); Potassium 3.3 mmol/L (3.5-5.1); Sodium Level 141 mmol/L (136-145)
[2017-08-08 07:23] VITALS: O2SAT 96
[2017-08-08 07:26] LABS: Anisocytosis 2+; Differential Comment SCANNED; Macrocytosis 2+
[2017-08-08] MEDS: Multivitamins,Therapeutic Tablet 1 TABLET PO (08:39)
[2017-08-08] MEDS: Aspirin 81 MG TAB.CHEW PO (08:39)
[2017-08-08] MEDS: Iron Polysaccharide Complex 150 MG CAPSULE PO (08:39)
--- NOTE | 2017-08-08 11:04 | CASEMGMT ---
Plan of care meeting held. Resident present as well as resident spouse and resident family. Resident has lost appeal with a last cover day continuing to be 08/08/17 and resident to discharge or financial responsibility to begin on 08/09/17. Resident choosing to discharge on 08/09/17. Resident plans to discharge home with spouse and home health services. Physical and Occupational therapy as well as [facility] are recommending for resident to continue with services within the home. Resident is agreeable to recommendation and requesting for home health services to be set up through [facility] ([facility]). Resident reporting to need a walker at time of discharge. Resident does not have a preference of [employer] equipment Dexetra, [facility] to be utilized as resident insurance is in network with [facility]. Resident spouse to provide transportation home for resident at time of discharge. Resident to discharge home with [employer], [employer] notified of resident discharge date and plan. Support given. [facility] This social media manager making referral for physical and occupational therapy s well as [facility]. Order to be completed. Order faxed to [facility]. Resident spouse planning to parts picker walker prior to resident discharge. Proposed discharge date: 08/09/17 PLAN: Discharge home with spouse and home health services. Jade MAY, BIOPHARMACEUTICAL REP
[2017-08-08 11:50] LABS: Bedside Glucose 124 mg/dL (70-110)
[2017-08-08 16:00] VITALS: BP 106/46; PULSE 91; RESP 18; TEMP 36.8; O2SAT 95
[2017-08-08 17:20] LABS: Bedside Glucose 127 mg/dL (70-110)
[2017-08-08] MEDS: traZODone 50 MG Tablet PO (20:51)
[2017-08-08 20:56] LABS: Bedside Glucose 195 mg/dL (70-110)
[2017-08-08] MEDS: guaiFENesin/Codeine 5 ML UDC PO (22:24)
[2017-08-09] MEDS: Benzonatate 100 MG Capsule PO (03:44)
[2017-08-09] MEDS: Carvedilol 3.125 MG TABLET 1.5625 MG PO (05:55)
[2017-08-09] MEDS: Amiodarone 200 MG Tablet PO (05:55)
[2017-08-09] MEDS: SACUBITRIL/VALSARTAN 24/26 MG TABLET 1 EACH PO (05:55)
[2017-08-09] MEDS: Menthol/Lanolin/Calamine/Znox 113 GM Tube 1 APPLIC TOPICAL (05:57)
[2017-08-09] MEDS: Nystatin Powder 15gm Bottle 1 APPLIC TOPICAL (06:05)
[2017-08-09 06:13] VITALS: PULSE 89; RESP 19; O2SAT 97
[2017-08-09 06:16] LABS: Bedside Glucose 116 mg/dL (70-110)
[2017-08-09 06:23] LABS: Anion Gap 9 (5-15); BUN 20 mg/dL (7-18); BUN/Creat Ratio 12.6 RATIO (10-20); Calcium,Total 8.4 mg/dL (8.5-10.1); Chloride 106 mmol/L (98-107); Creatinine, Serum 1.59 mg/dL (0.70-1.30); EST Glomerular Filtration Rate 45 mL/min (>60); Est Glom Filt Rate - Afr Amer 55 mL/min (>60); Estimated Creatinine Clearance 33.61 ml/min; Glucose 104 mg/dL (74-106); Potassium 3.4 mmol/L (3.5-5.1); Sodium Level 143 mmol/L (136-145)
[2017-08-09 07:24] LABS: International Normalized Ratio 1.9; Prothrombin Time (Protime)PT. 21.5 SECONDS (11.7-14.9)
[2017-08-09 07:36] VITALS: O2SAT 95
[2017-08-09] MEDS: Multivitamins,Therapeutic Tablet 1 TABLET PO (08:56)
[2017-08-09] MEDS: Aspirin 81 MG TAB.CHEW PO (08:56)
[2017-08-09] MEDS: Iron Polysaccharide Complex 150 MG CAPSULE PO (08:56)
[2017-08-09 13:00] VITALS: BP 108/62; PULSE 62; RESP 18; TEMP 36.3
--- NOTE | 2017-08-10 08:54 | CASEMGMT ---
Insurance Notified insurance of resident discharge on 08/09/17 to home with spouse and home health services. Auth#[id number] Jade MAY, PROGRAM PROFESSIONAL
--- NOTE | 2017-08-13 15:44 | MDS.RN ---
Information for the mds was obtained from review of the clinical record, interview of resident, staff, and direct observation of resident's care.
== END 2017-08-09 14:53 | disposition home health service (06) | DRG 947 ==
PROVIDERS: Admitting Provider Family Medicine Geriatric Medicine; Family Provider Family Medicine; PCP Family Medicine; Visit Provider Family Medicine Geriatric Medicine
DX: R53.81 Other malaise (principal); I50.23 Acute on chronic systolic (congestive) heart failure; E11.65 Type 2 diabetes mellitus with hyperglycemia; E11.22 Type 2 diabetes mellitus with diabetic chronic kidney disease; I48.91 Unspecified atrial fibrillation; B35.4 Tinea corporis; M79.674 Pain in right toe(s); B35.1 Tinea unguium; D50.9 Iron deficiency anemia, unspecified; I13.0 Hypertensive heart and chronic kidney disease with heart failure and stage 1 through stage 4 chronic kidney disease, or unspecified chronic kidney disease; M79.675 Pain in left toe(s); N18.3 Chronic kidney disease, stage 3 (moderate); Z79.01 Long term (current) use of anticoagulants; Z79.899 Other long term (current) drug therapy; Z79.4 Long term (current) use of insulin; Z87.891 Personal history of nicotine dependence; Z95.2 Presence of prosthetic heart valve
CPT/HCPCS: 36415; 80048; 82962; 85025; 85610; 92523; 97110; 97116; 97162; 97165; 97530; 97535; 97802

== ENCOUNTER → 2017-08-31 12:34 | Outpatient (CLI) | payer MEDICARE, SELFPAY ==
[2017-08-31 12:47] VITALS: PULSE 85; PULSE 86; PULSE 90; PULSE 91; PULSE 92; PULSE 94; O2SAT 95; O2SAT 96; O2SAT 97; O2SAT 98
--- NOTE | 2017-09-01 09:25 | PCM.PSN.6M ---
PSN 6 Minute Walk Test - 6 Minute Walk Test 6 Minute Walk Test: 6 Minute Walk Test PSN:6-Minute Walk Test Start: 08/31/17 13:04 Freq: Status: Active Protocol: [id number].6MINW Document 08/31/17 12:47 [facility] (Rec: 08/31/17 13:07 [facility] [id number]) 6 Minute Walk Test Date Performed 08/31/17 Time Performed 12:47 Height 5 ft 4 in Weight: 175 lb Weight in Pounds 175.[address]: Marti Brown Assistive device used: Cane Pre-test Oxygen Delivery Method Room Air Pulse Ox (%) 97 Pulse Rate (60-100 beats/min) 94 Dyspnea Rhianna Scale (0-10) 0 Exertion Rhianna Scale (6-20) 6 1st minute Oxygen Delivery Method Room Air Pulse Ox (%) 98 Pulse Rate (60-100 beats/min) 85 Number of Rests Taken 0 2nd minute Oxygen Delivery Method Room Air Pulse Ox (%) 96 Pulse Rate (60-100 beats/min) 86 Number of Rests Taken 0 3rd minute Oxygen Delivery Method Room Air Pulse Ox (%) 95 Pulse Rate (60-100 beats/min) 90 Number of Rests Taken 0 4th minute Oxygen Delivery Method Room Air Pulse Ox (%) 98 Pulse Rate (60-100 beats/min) 91 Number of Rests Taken 0 5th minute Oxygen Delivery Method Room Air Pulse Ox (%) 98 Pulse Rate (60-100 beats/min) 92 Number of Rests Taken 0 6th minute Oxygen Delivery Method Room Air Pulse Ox (%) 98 Pulse Rate (60-100 beats/min) 94 Number of Rests Taken 0 Post-test Oxygen Delivery Method Room Air Pulse Ox (%) 98 Pulse Rate (60-100 beats/min) 90 Dyspnea Rhianna Scale (0-10) 0.5 Exertion Rhianna Scale (6-20) 12 Number of Rests Taken 0 Full Laps Walked 12 Partial Lap, Number of Tiles Walked 17 Total Distance Walked (ft) 725 - Interpretation Interpretation: The patient ambulated 725 feet over the course of 6 minutes beginning on room air without assistive devices or breaks. Pretesting oxygen saturation was noted to be 97% on room air. With ambulation, the andrews oxygen saturation was 95%. There was no significant exertional oxygen desaturation noted. There was evidence of impaired walk distance. - Recommendations Recommendations: There is no indication for the use of supplemental oxygen at this time.
== END ==
PROVIDERS: Family Provider Family Medicine; PCP Family Medicine; Visit Provider Nurse Practitioner Acute Care
DX: R06.09 Other forms of dyspnea (principal)
CPT/HCPCS: 94618

== ENCOUNTER → 2017-09-04 12:23 | Outpatient (CLI) | payer MEDICARE, SELFPAY ==
--- NOTE | 2017-09-04 14:45 | PFTCOMP ---
COMPLETE PULMONARY FUNCTION TEST INTERPRETATION Brief HPI: Patient is a 77 year old male, currently under the care of Marti Brown, who presents to [facility] for complete pulmonary function tests secondary to diagnosis of dyspnea on exertion. Respiratory therapist reports good effort and reproducible results. Patient was not able to exhale for the full 6 seconds. Interpretation: Forced expiration spirometry shows no large airways obstructive ventilatory defect with an FEV1 of 76 % predicted. There is no significant bronchodilator response by ATS criteria. Spirograms are of good quality and plateau slowly, indicating slowly emptying areas of the lungs. The respiratory flow volume loop shows decreased expiratory flow rates at high lung volumes consistent with small airways obstruction. Lung volumes by body plethysmography show a normal total lung capacity at 4.6 L, 92 % predicted. All other lung volumes are within normal limits. Diffusion capacity by carbon monoxide is decreased at 44 % predicted. The airway resistance is normal. No previous pulmonary function tests were available for review. 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
--- NOTE | 2017-09-04 14:54 | PFTCOMP_ITS ---
COMPLETE PULMONARY FUNCTION TEST INTERPRETATION Brief HPI: Patient is a 77 year old male, currently under the care of Marti Brown, who presents to [facility] for complete pulmonary function tests secondary to diagnosis of dyspnea on exertion. Respiratory therapist reports good effort and reproducible results. Patient was not able to exhale for the full 6 seconds. Interpretation: Forced expiration spirometry shows no large airways obstructive ventilatory defect with an FEV1 of 76 % predicted. There is no significant bronchodilator response by ATS criteria. Spirograms are of good quality and plateau slowly, indicating slowly emptying areas of the lungs. The respiratory flow volume loop shows decreased expiratory flow rates at high lung volumes consistent with small airways obstruction. Lung volumes by body plethysmography show a normal total lung capacity at 4.6 L , 92 % predicted. All other lung volumes are within normal limits. Diffusion capacity by carbon monoxide is decreased at 44 % predicted. The airway resistance is normal. No previous pulmonary function tests were available for review. 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
== END ==
PROVIDERS: Family Provider Family Medicine; PCP Family Medicine; Visit Provider Nurse Practitioner Acute Care
DX: R06.09 Other forms of dyspnea (principal)
CPT/HCPCS: 94060; 94726; 94729

== ENCOUNTER → 2017-09-06 20:19 | Outpatient (CLI) | payer MEDICARE, SELFPAY ==
[2017-09-06] MEDS: Zolpidem Tartrate 5 MG Tablet PO (21:20)
== END ==
PROVIDERS: Family Provider Family Medicine; PCP Family Medicine; Visit Provider Nurse Practitioner Acute Care
DX: G47.19 Other hypersomnia (principal); R06.09 Other forms of dyspnea
CPT/HCPCS: 95811

== ENCOUNTER → 2017-09-12 16:39 | Outpatient (CLI) | payer MEDICARE, SELFPAY ==
[2017-09-12 18:32] LABS: Thyroid Stim Hormone (TSH) 3.03 uIU/mL (0.358-3.74)
== END ==
PROVIDERS: Family Provider Family Medicine; PCP Family Medicine; Visit Provider Family Medicine
DX: I42.9 Cardiomyopathy, unspecified (principal); E11.9 Type 2 diabetes mellitus without complications
CPT/HCPCS: 36415; 84443

== ENCOUNTER → 2017-09-21 12:37 | Outpatient (CLI) | payer MEDICARE, SELFPAY ==
[2017-09-21 14:50] LABS: International Normalized Ratio 4.3; Prothrombin Time (Protime)PT. 41.9 SECONDS (11.7-14.9)
== END ==
PROVIDERS: Family Provider Family Medicine; PCP Family Medicine; Visit Provider Internal Medicine Cardiovascular Disease
DX: Z95.2 Presence of prosthetic heart valve (principal); Z79.01 Long term (current) use of anticoagulants
CPT/HCPCS: 36415; 85610

== ENCOUNTER → 2017-10-01 12:53 | Outpatient (CLI) | payer MEDICARE, SELFPAY ==
--- NOTE | 2017-09-26 09:14 | EKG12_ITS ---
Test Reason : CARDIAC REHAB ORDER Blood Pressure : / mmHG Vent. Rate : 071 BPM Atrial Rate : 071 BPM P-R Int : 278 ms QRS Dur : 098 ms QT Int : 432 ms P-R-T Axes : 100 -10 076 degrees QTc Int : 469 ms Sinus rhythm with 1st degree A-V block ST & T wave abnormality, consider lateral ischemia Prolonged QT Abnormal ECG Confirmed by MIGUEL CEDENO, HILARY ([id number]), film editor supervisor CHEPE MEADE ([id number]) on 09/28/2017 12:59:26 PM Referred By: Asif Higgins Confirmed By:HILARY RIVERA MD
--- NOTE | 2017-10-01 12:59 | PCM.CR.HP2 ---
CR - History & Physical - General Arrival date:: 10/01/17 Arrival time:: 13:00 Date of Referral:: 06/26/17 Date of CR Evaluation:: 10/01/17 Referring Physician: Dr. Asif Higgins Primary Diagnosis: Z95.2, Z98.890 06/26/17 Aortic valve replacement mitral valve repair - History of Present Cardiac Event Onset Date: Enter Onset Date of cardiac illnesses in Comment field below Heart valve replacement or repair:: Yes Heart Failure EF <35%:: Yes - EF 21% per echo Were there any complications?: Pt had a lifevest. Returned it 09/30/17. EF up to 50% per pt. - Medications Home Medications: Ambulatory Orders Medication Instructions Recorded Multivitamins,Therapeutic 1 tab PO DAILY 07/02/14 [Multivitamin] Aspirin [Aspirin, Baby] 81 mg PO DAILY@0800 07/18/17 Amiodarone HCl [Cordarone] 200 mg PO DAILY #30 tab 08/06/17 Carvedilol [Coreg (Beta Severo)] 1.5625 mg PO BID #30 tab 08/06/17 Insulin Detemir [Levemir FlexPen] 5 units SC BID #1 insuln.pen 08/06/17 Iron Polysaccharide Complex 150 mg PO DAILYCM #30 cap 08/06/17 [Ferrex 150] sacubitril 24 mg-valsartan 26 mg 1 tab PO BID #60 tab 08/13/17 tablet warfarin 3 mg tablet 3 mg PO .COMPLEX 08/20/17 - Allergies Allergies/Adverse Reactions: Allergies No Known Allergies Allergy (Verified 09/21/17 11:47) - Sleep Disorder Evaluation Hx of Sleep Apnea: Yes Do you snore loudly (louder than talking or can be heard through closed doors)?: Yes - Pt has machine coming this week Do you often feel tired/ fatigued/ sleepy during daytime?: No Has anyone observed you stop breathing during sleep?: No History of Hypertension (for STOP score): Yes STOP Results: Positive Advanced Directives - Advanced Directives Power of Pure Culture Operator: No Advance Directives Information Provided: No Advance Directives on File: No DNR Order?:: No - MOLST See MOLST form: No Past Medical History - Past Medical Illness Medical History: Past Medical History (Last Updated 09/17/17 @ 08:15 by Neeta Mariscal) Nonrheumatic aortic valve stenosis (Chronic) 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) Z79.01 Critical aortic valve stenosis (Resolved) I35.0 Reported replacement at [facility] June 2017 Mitral valve insufficiency (Chronic) I34.0 Repair [facility] 06/2017 Acute on chronic combined systolic (congestive) and diastolic (congestive) heart failure (Acute) I50.43 Diabetes mellitus (Chronic) E11.9 Chronic kidney disease (Chronic) N18.9 Acute respiratory failure with hypercapnia (Resolved) J96.02 Metabolic encephalopathy (Resolved) G93.41 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) E11.22, N18.3 Type 2 diabetes mellitus with hyperglycemia (Chronic) E11.65 Cardiomyopathy in disease classified elsewhere (Chronic) I43 Hypertension (Chronic) I10 Nonrheumatic aortic valve stenosis with insufficiency (Inactive) I35.2 - Past Surgical History Surgical History: Past Surgical History (Last Reviewed 09/21/17 @ 11:47 by Neeta Mariscal) S/P mitral valve repair (Chronic) Onset Date: ~06/2017 Z98.890 H/O aortic valve replacement (Chronic) Onset Date: ~06/2017 Z95.2 History of adenoidectomy Z98.890, Z90.89 History of tonsillectomy Z98.890, Z90.89 Hx of cholecystectomy Z98.890, Z90.49 History of left heart catheterization Onset Date: ~04/2017 Z98.890 Surgical History: adenoidectomy, cholecystectomy, tonsillectomy, - - Aortic valve replacement, mitral valve repair, left atrial appendage clip. - Family History Summary Family History: Family History (Last Reviewed 09/21/17 @ 11:47 by Neeta Mariscal) Mother Hypertension Father Hypertension Social History - Smoking History Smoking Status: Never smoker Hx Tobacco Use: No Hx Smoking Exposure: No - Alcohol Use Alcohol Usage: No - Substance Abuse Hx Substance Use: No - Occupation Occupation (List type of work in comments):: Employed - [employer] Hours worked per day:: 6 - Hobbies, Recreation, Social Activities Hobbies: Other - fishing, sports Recreational Activities: I am able to engage in all my recreational activities Social Environment - Status Marital Status: - Current Living Arrangements Living Environment:: Family - Children How many children do you have?: 2 Do any of your children live nearby?: Yes - Safety Do you feel safe in your surroundings?: Yes - Assistance Do you need any assistance at home?: none Review of Systems - Review of Systems Hints: Right click = Denies (Slash). Left click = Reports ([place]) Review of Present Symptoms: Reports: Shortness of Breath at Rest, Shortness of Breath with Exertion, Appetite - Normal, Sleep - Normal. Denies: PVD, Operative Discomfort, Angina, Wound Healing, Dizziness/Lightheadedness, Fatigue, Heart Arrhythmia/Irregularities, Appetite - Special Diet, Sexual Changes - Pain Is Patient Pain Free?: Yes Pain Location: none Risk Factor Assessment - Pulse Pulse Rate: 70 Pulse Rhythm: Regular - Hypertension Blood Pressure Sitting - Left Arm: 140/90 - Stress Stress: Recent - need to get back to work - Diabetes Diabetic History: Type II Nutrition Referral for Diabetes: No - Obesity Height: 1.63 m Weight:: 80.286 kg Weight in Pounds: 177.0 lbs Body Mass Index (BMI): 30.4 Nutritional Referral for Obesity: No - Physical Inactivity Physical Inactivity: Recreational activity - Risk Stratification Risk Guidelines: Lowest Risk: Risk Factor for Smoking, Moderate Risk: Risk Factor for Dyslipidemia, Risk Factor for Diabetes, Risk Factor for Obesity, Risk Factor for Hypertension, Risk Factor for Sedentary Lifestyle, Risk Factor for Depression - For Smoking Smoking Risk Guidelines: Smoking Low Risk: None or quit greater than 6 months ago. Smoking Moderate Risk: Smoker or quit 6 months or less ago. Smoking High Risk: Smoker - For Dyslipidemia Dyslipidemia Risk Guidelines: Low Risk: Moderate Risk: High Risk: 15-25% fat 25.1-29% fat >/= 30% fat. <7% sat fat 7-9% sat fat >9% sat fat. <150 mg chol 150-299 mg chol >/= 300 mg chol. LDL <100 LDL 100-129 LDL >/= 130. Chol/HDL ratio <5.0 Chol/HDL ratio 5.0-6.0 Chol/HDL ratio >6.0. Triglycerides <100 Triglycerides 100-149 Triglycerides >/= 150 - For Diabetes Mellitus Diabetes Risk Guidelines: Diabetes Low Risk: HgA1c <6.5% and/or FBG <120. Diabetes Moderate Risk: HgA1c 6.6-7.9% and/or FBG 120-180. Diabetes High Risk: HgA1c >/= 8% and/or FBG >180 - For Obesity/Overweight Obesity/Overweight Risk Guidelines: Obesity Low Risk: BMI <25.0. Obesity Moderate Risk: BMI 25-29.9. Obesity High Risk: BMI >/= 30.0 - For Hypertension Hypertension Risk Guidelines: Hypertension Low Risk: Systolic <120 and Diastolic <80. Hypertension Moderate Risk: Systolic 120-139 and Diastolic 80-89. Hypertension High Risk: Systolic >/= 140 and Diastolic >/= 90 - For Sedentary Lifestyle Sedentary Lifestyle Risk Guidelines: Sedentary Lifestyle Low Risk: >/= 1,500 kcal/week. Sedentary Lifestyle Moderate Risk: 700-1,499 kcal/week. Sedentary Lifestyle High Risk: < 700 kcal/week - For Depression Depression Risk Guidelines: Depression Low Risk: Not clinically depressed. Depression Moderate Risk: Mildly depressed. Depression High Risk: Clinically depressed - Family History Family History: Family History (Last Reviewed 09/21/17 @ 11:47 by Neeta Mariscal) Mother Hypertension Father Hypertension Motivation - Motivation to Participate On a scale of 1 to 10, how prepared are you to commit to attending program?: 10 What do you see as barriers to successfully being able to complete the program?: work What do you see as the benefits of succesfully completing the program? In other words, what do you hope to get out of participating in the program?: better fitness Are there issues you are dealing with that will interfere with completing the program?: finance Do you have a spouse or signficant other, family or friends who will help support you to complete the program?: yes
--- NOTE | 2017-10-01 13:09 | CR.HP_ITS ---
CR - History & Physical - General Arrival date:: 10/01/17 Arrival time:: 13:00 Date of Referral:: 06/26/17 Date of CR Evaluation:: 10/01/17 Referring Physician: Dr. Asif Higgins Primary Diagnosis: Z95.2, Z98.890 06/26/17 Aortic valve replacement mitral valve repair - History of Present Cardiac Event Onset Date: Enter Onset Date of cardiac illnesses in Comment field below Heart valve replacement or repair:: Yes Heart Failure EF <35%:: Yes - EF 21% per echo Were there any complications?: Pt had a lifevest. Returned it 09/30/17. EF up to 50% per pt. - Medications Home Medications: Ambulatory Orders Medication Instructions Recorded Multivitamins,Therapeutic 1 tab PO DAILY 07/02/14 [Multivitamin] Aspirin [Aspirin, Baby] 81 mg PO DAILY@0800 07/18/17 Amiodarone HCl [Cordarone] 200 mg PO DAILY #30 tab 08/06/17 Carvedilol [Coreg (Beta Severo)] 1.5625 mg PO BID #30 tab 08/06/17 Insulin Detemir [Levemir FlexPen] 5 units SC BID #1 insuln.pen 08/06/17 Iron Polysaccharide Complex 150 mg PO DAILYCM #30 cap 08/06/17 [Ferrex 150] sacubitril 24 mg-valsartan 26 mg 1 tab PO BID #60 tab 08/13/17 tablet warfarin 3 mg tablet 3 mg PO .COMPLEX 08/20/17 - Allergies Allergies/Adverse Reactions: Allergies No Known Allergies Allergy (Verified 09/21/17 11:47) - Sleep Disorder Evaluation Hx of Sleep Apnea: Yes Do you snore loudly (louder than talking or can be heard through closed doors)? : Yes - Pt has machine coming this week Do you often feel tired/ fatigued/ sleepy during daytime?: No Has anyone observed you stop breathing during sleep?: No History of Hypertension (for STOP score): Yes STOP Results: Positive Advanced Directives - Advanced Directives Power of Director Of Restaurants: No Advance Directives Information Provided: No Advance Directives on File: No DNR Order?:: No - MOLST See MOLST form: No Past Medical History - Past Medical Illness Medical History: Past Medical History (Last Updated 09/17/17 @ 08:15 by Neeta Mariscal) Nonrheumatic aortic valve stenosis (Chronic) 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) Z79.01 Critical aortic valve stenosis (Resolved) I35.0 Reported replacement at [facility] June 2017 Mitral valve insufficiency (Chronic) I34.0 Repair [facility] 06/2017 Acute on chronic combined systolic (congestive) and diastolic (congestive) heart failure (Acute) I50.43 Diabetes mellitus (Chronic) E11.9 Chronic kidney disease (Chronic) N18.9 Acute respiratory failure with hypercapnia (Resolved) J96.02 Metabolic encephalopathy (Resolved) G93.41 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) E11.22, N18.3 Type 2 diabetes mellitus with hyperglycemia (Chronic) E11.65 Cardiomyopathy in disease classified elsewhere (Chronic) I43 Hypertension (Chronic) I10 Nonrheumatic aortic valve stenosis with insufficiency (Inactive) I35.2 - Past Surgical History Surgical History: Past Surgical History (Last Reviewed 09/21/17 @ 11:47 by Neeta Mariscal) S/P mitral valve repair (Chronic) Onset Date: ~06/2017 Z98.890 H/O aortic valve replacement (Chronic) Onset Date: ~06/2017 Z95.2 History of adenoidectomy Z98.890, Z90.89 History of tonsillectomy Z98.890, Z90.89 Hx of cholecystectomy Z98.890, Z90.49 History of left heart catheterization Onset Date: ~04/2017 Z98.890 Surgical History: adenoidectomy, cholecystectomy, tonsillectomy, - - Aortic valve replacement, mitral valve repair, left atrial appendage clip. - Family History Summary Family History: Family History (Last Reviewed 09/21/17 @ 11:47 by Neeta Mariscal) Mother Hypertension Father Hypertension Social History - Smoking History Smoking Status: Never smoker Hx Tobacco Use: No Hx Smoking Exposure: No - Alcohol Use Alcohol Usage: No - Substance Abuse Hx Substance Use: No - Occupation Occupation (List type of work in comments):: Employed - [employer] Hours worked per day:: 6 - Hobbies, Recreation, Social Activities Hobbies: Other - fishing, sports Recreational Activities: I am able to engage in all my recreational activities Social Environment - Status Marital Status: - Current Living Arrangements Living Environment:: Family - Children How many children do you have?: 2 Do any of your children live nearby?: Yes - Safety Do you feel safe in your surroundings?: Yes - Assistance Do you need any assistance at home?: none Review of Systems - Review of Systems Hints: Right click = Denies ([place]ash). Left click = Reports ([place]) Review of Present Symptoms: Reports: Shortness of Breath at Rest, Shortness of Breath with Exertion, Appetite - Normal, Sleep - Normal. Denies: PVD, Operative Discomfort, Angina, Wound Healing, Dizziness/Lightheadedness, Fatigue , Heart Arrhythmia/Irregularities, Appetite - Special Diet, Sexual Changes - Pain Is Patient Pain Free?: Yes Pain Location: none Risk Factor Assessment - Pulse Pulse Rate: 70 Pulse Rhythm: Regular - Hypertension Blood Pressure Sitting - Left Arm: 140/90 - Stress Stress: Recent - need to get back to work - Diabetes Diabetic History: Type II Nutrition Referral for Diabetes: No - Obesity Height: 1.63 m Weight:: 80.286 kg Weight in Pounds: 177.0 lbs Body Mass Index (BMI): 30.4 Nutritional Referral for Obesity: No - Physical Inactivity Physical Inactivity: Recreational activity - Risk Stratification Risk Guidelines: Lowest Risk: Risk Factor for Smoking, Moderate Risk: Risk Factor for Dyslipidemia, Risk Factor for Diabetes, Risk Factor for Obesity, Risk Factor for Hypertension, Risk Factor for Sedentary Lifestyle, Risk Factor for Depression - For Smoking Smoking Risk Guidelines: Smoking Low Risk: None or quit greater than 6 months ago. Smoking Moderate Risk: Smoker or quit 6 months or less ago. Smoking High Risk: Smoker - For Dyslipidemia Dyslipidemia Risk Guidelines: Low Risk: Moderate Risk: High Risk: 15-25% fat 25.1-29% fat >/= 30% fat. <7% sat fat 7-9% sat fat >9% sat fat. <150 mg chol 150-299 mg chol >/= 300 mg chol. LDL <100 LDL 100-129 LDL >/= 130. Chol/HDL ratio <5.0 Chol/HDL ratio 5.0-6.0 Chol/HDL ratio >6.0. Triglycerides <100 Triglycerides 100-149 Triglycerides >/= 150 - For Diabetes Mellitus Diabetes Risk Guidelines: Diabetes Low Risk: HgA1c <6.5% and/or FBG <120. Diabetes Moderate Risk: HgA1c 6.6-7.9% and/or FBG 120-180. Diabetes High Risk: HgA1c >/= 8% and/or FBG >180 - For Obesity/Overweight Obesity/Overweight Risk Guidelines: Obesity Low Risk: BMI <25.0. Obesity Moderate Risk: BMI 25-29.9. Obesity High Risk: BMI >/= 30.0 - For Hypertension Hypertension Risk Guidelines: Hypertension Low Risk: Systolic <120 and Diastolic <80. Hypertension Moderate Risk: Systolic 120-139 and Diastolic 80-89. Hypertension High Risk: Systolic >/= 140 and Diastolic >/= 90 - For Sedentary Lifestyle Sedentary Lifestyle Risk Guidelines: Sedentary Lifestyle Low Risk: >/= 1 ,500 kcal/week. Sedentary Lifestyle Moderate Risk: 700-1,499 kcal/week. Sedentary Lifestyle High Risk: < 700 kcal/week - For Depression Depression Risk Guidelines: Depression Low Risk: Not clinically depressed. Depression Moderate Risk: Mildly depressed. Depression High Risk: Clinically depressed - Family History Family History: Family History (Last Reviewed 09/21/17 @ 11:47 by Neeta Mariscal) Mother Hypertension Father Hypertension Motivation - Motivation to Participate On a scale of 1 to 10, how prepared are you to commit to attending program?: 10 What do you see as barriers to successfully being able to complete the program? : work What do you see as the benefits of succesfully completing the program? In other words, what do you hope to get out of participating in the program?: better fitness Are there issues you are dealing with that will interfere with completing the program?: finance Do you have a spouse or signficant other, family or friends who will help support you to complete the program?: yes
[2017-10-01 14:00] VITALS: BP 140/90; PULSE 70; BMI 30.4
--- NOTE | 2017-10-01 14:02 | PCM.CR.ITP ---
General Information - General Information Admitting Diagnosis: Z95.2, Z98.89 06/26/17 Aortic valve replace and mitral valve repair - Education/Goals Barriers to Learning: Hearing Impairment Individual Counseling: Initial Assessment: High Blood Pressure Cardiac Rehabilitation Goals: 1. Maintain the individual as the primary focus of care. 2. To improve the patient's quality of life. 3. Identification of cardiac risk factors and provide cardiac risk factor management. 4. Enhance the psychosocial status of the patient. 5. Reconditioning enough to allow the patient to resume customary activities. 6. Control symptoms of cardiac disease Scale for measuring improvement of personal goals: Enter appropriate number in Comments. 2 = Unchanged. 3 = Slightly Better. 4 = Moderate Improvement. 5 = Met my Goal Personal Goals: Initial Assessment: Get back to work, or to resume activities faster, Improve muscle strength and endurance, Improve diet and eating habits (eat healthier) Exercise - Initial Assessment - Visit Date of Eval: 10/01/17 - Initial eval - Stages of Change Stages of Change:: Contemplate - Exercise Prescription Mode:: Treadmill, Biodyne, Rower, Airdyne, NuStep, Arm Ergometer Target Heart Rate:: 102-108 - Hypertension Do any of the following apply?: Yes Resting Blood Pressure:: 140/90 - Intervention Home Exercise/Activity Goal:: Sitting Time <3 hrs/day - Education Goals:: Warm-up, RPE LATISHA Scale, S/S, Safe Exercise, Self-Monitoring - Exercise Program Goals Exercise Program Goals: Aerobic Activity >30 min, B/P <130/80 Nutrition - Initial Assessment - Program Goals Nutrition Program Goals: LDL <70. Total Cholesterol <200. HDL >45. Triglycerides <150. HgbA1C <7%. BMI <25 - Visit Date of Assessment:: 10/01/17 - Stages of Change Stages of Change:: Contemplate - Diabetes Diabetes:: Yes Insulin: No Do you monitor your blood sugar at home?: Yes - Weight Management Height: 1.63 m Weight:: 80.286 kg Total Score:: 2 - Intervention Referral to dietitian:: No Referral to Diabetic Clinic:: No Will attend diet classes:: Yes - Education Gave educational materials for:: Signs & symptoms of hypoglycemia, Signs & symptoms of hyperglycemia, Relate diabetes to coronary artery disease, Healthy eating Tobacco - Initial Assessment - Program Goals Tobacco Program Goals: Complete smoking cessation. Attend education classes. Improve Knowledge Test score - Stage of Change Stages of Change:: Contemplate - Learning Barriers Learning Barriers: Hearing Total Score:: 17 - Family Support Do you have family support?: Yes - Tobacco Use Tobacco Use: Non-smoker Do you use smokeless tobacco?: No - Intervention Smoking Cessation Referral:: No Individual Education/Counseling:: No Education Schedule Given:: Yes - Education Gave educational material for:: Tobacco triggers, Coronary artery disease, Risk factors, Sexuality, Medical compliance, Cardiac A&P, Angina signs & symptoms Psychosocial - Initial Assess - Target Goals Target Goals: Assess presence or absence of depression. Using a valid screening tool, maximizes coping skills. Positive support system - Stages of Change Stages of Change:: Contemplate - Psychosocial Test Tool Used:: HANDS Depression Questionnaire Total Mood Screening Score:: 3 Self-Efficacy Score:: 9 - Intervention PS - Interventions: Yes Attend Stress Management Classes, Yes Uses Stress Management Skills, No Referral to Mental Health, No Referral to [facility] Case Management, No Referral to Physician - Education Gave educational materials for:: Coping techniques, Signs & symptoms of depression, Stress management, Relaxation techniques - Assistive Devices Assistive Devices:: None Fall Risk Assessed:: Yes Patient Health Questionnaire Initial Assessment 1. Little interest or pleasure in doing things: Not at all 2. Feeling down, depressed, or hopeless: Not at all 3. Trouble falling or staying asleep, or sleeping too much: Nearly every day 4. Feeling tired or having little energy: Not at all 5. Poor appetite or overeating: Not at all 6. Feeling bad about yourself -- or that you are a failure or have let yourself or your family down: Not at all 7. Trouble concentrating on things, such as reading the newspaper or watching television: Not at all 8. Moving or speaking so slowly that other people could have noticed. Or the opposite - being so fidgety or restless that you have been moving around a lot more than usual: Not at all 9. Thoughts that you would be better off , or of hurting yourself in some way: Not at all How difficult have these problems made it for you to do your work, take care of things at home, or get along with other people?: Not difficult at all Total Score: 3 CHERRY-Q SV Test - Statements CAD is a disease of the arteries in the heart: False Examples of risk factors for heart disease: True Angina is chest pain or discomfort: True The benefits of resistance training include: True Eating more meat and dairy products: False Anti-platelet medications such as aspirin are important: True The only effective way to manage stress: False An exercise warm-up slowly increases heart rate: True Prepared, processed foods usually have high sodium: True Depression is common after a heart attack: True The statin medications lower cholesterol: False To control blood pressure, lower the amount of sodium: True If someone gets chest discomfort during walking: False Transfats are partially hydrogenated vegetable oils: True Sleep apnea that is not treated increases the risk: True To control cholesterol, one should become a vegetarian: True Someone knows if he/she is exercising at the right level: True Diabetes cannot be prevented with exercise & health eating: False Stress is a large risk for heart attack: True A diet that can help lower blood pressure is rich in: True - Total Score Total Correct Responses: 17 Self-Efficacy Initial Assessment We would like to know how confident you are in doing certain activities. Please select your confidence level for:: Select your confidence level for the following using the scale 1-10 where 1 is not at all confident and 10 is totally confident. Your score is the average of all 6 responses. Fatigue: How confident are you that you can keep the fatigue caused by your disease from interfering with the things you want to do? Select Number: 8 Physical Discomfort or Pain: How confident are you that you can keep the physical discomfort or pain of your disease from interfering with the things you want to do? Select Number: 9 Emotional Distress: How confident are you that you can keep the emotional distress caused by your disease from interfering with the things you want to do? Select Number: 10 Other Symptoms or Health Problems: How confident are you that you can keep other symptoms or health problems from interfering with the things you want to do? Select Number: 10 Different Tasks and Activities: How confident are you that you can do the different tasks and activities needed to manage your health condition so as to reduce your need to see a doctor? Select Number: 7 Medication: How confident are you that you can do things other than just taking medication to reduce how much your illness affects your everyday life? Select Number: 10 Total Score:: 9 Nutrition Survey - Nutrition Survey Instructions Scoring Instructions: Scoring is as follows: Yes = 1 points. No = 0 point. Patient score that is >/=12 is considered to be at potential nutritional risk and could benefit from a referral to a registered dietitian. - Nutrition Survey Initial Have you lost >10 lbs over the past 2 months without trying?: No Are you following a special diet at home for diabetes, low fat, or low salt?: Yes Are you interested in meeting with a dietitian for help understanding your diet?: No Do you eat less than 3 meals a day?: No Do you eat fatty meats (grover, sausage, ribs, etc), fried foods, desserts, large amounts of salad dressings, margarine, butter, or cheese most days?: No Do you have food allergies? [Enter types in comment field]: No Do you eat in restaurants more than 3 times a week?: No Do you season food with salt, seasoning salt, or garlic salt?: No Do you used canned, boxed, frozen meals, or soups, seasoning packets?: Yes Total Score:: 2
[2017-10-01 14:18] VITALS: BP 140/90
== END ==
LOC: CR 12:54
PROVIDERS: Family Provider Family Medicine; PCP Family Medicine; Visit Provider Internal Medicine Cardiovascular Disease
DX: Z95.2 Presence of prosthetic heart valve (principal); Z98.890 Other specified postprocedural states
CPT/HCPCS: 93005

== ENCOUNTER 2017-10-12 13:00 | Outpatient (RCR) | payer MEDICARE, SELFPAY ==
--- NOTE | 2017-10-24 11:25 | PCM.CR.ITP ---
General Information - General Information Admitting Diagnosis: Aortic valve replacement - Education/Goals Barriers to Learning: Hearing Impairment Individual Counselin-Day Assessment: High Blood Pressure Cardiac Rehabilitation Goals: 1. Maintain the individual as the primary focus of care. 2. To improve the patient's quality of life. 3. Identification of cardiac risk factors and provide cardiac risk factor management. 4. Enhance the psychosocial status of the patient. 5. Reconditioning enough to allow the patient to resume customary activities. 6. Control symptoms of cardiac disease Scale for measuring improvement of personal goals: Enter appropriate number in Comments. 2 = Unchanged. 3 = Slightly Better. 4 = Moderate Improvement. 5 = Met my Goal Personal Goals: 30-day Re-assessment: Get back to work, or to resume activities faster, Improve muscle strength and endurance Exercise - 30-day Assessment - Visit Date of Eval: 10/24/17 Session #:: 5 - Stages of Change Stages of Change:: Contemplate - Exercise Prescription Mode:: Treadmill, NuStep Frequency (x/week): 3 Duration:: 30 METs - Progression: 0.5-1 MET as tolerated: 2.9 Target Heart Rate:: 102-108 Max HR 85 - Hypertension Resting Blood Pressure:: 104/72 Peak Exercise Blood Pressure:: 130/68 Medication Changes:: No - Intervention Home Exercise/Activity Goal:: Sitting Time <3 hrs/day - Education Goals:: Warm-up, RPE LATISHA Scale, S/S, Safe Exercise, Self-Monitoring - Exercise Program Goals Exercise Program Goals: Aerobic Activity >30 min, B/P <130/80 Nutrition - Initial Assessment - Program Goals Nutrition Program Goals: LDL <70. Total Cholesterol <200. HDL >45. Triglycerides <150. HgbA1C <7%. BMI <25 - Diabetes Do you monitor your blood sugar at home?: Yes Nutrition - 30-Day Assessment - Program Goals Nutrition Program Goals: LDL <70. Total Cholesterol <200. HDL >45. Triglycerides <150. HgbA1C <7%. BMI <25 - Visit Date of Eval: 10/24/17 - Stages of Change Stages of Change:: Contemplate - Lipids Has the patient seen the dietitian?: No - Diabetes Diabetes:: No - Weight Management Weight:: 77.111 kg - Intervention Referral to dietitian:: No Referral to Diabetic Clinic:: No Will attend diet classes:: Yes - Education Attended class for:: Signs & symptoms of hypoglycemia, Signs & symptoms of hyperglycemia, Relate diabetes to coronary artery disease, Healthy eating Tobacco - Initial Assessment - Program Goals Tobacco Program Goals: Complete smoking cessation. Attend education classes. Improve Knowledge Test score - Learning Barriers Learning Barriers: Hearing Tobacco - 30-Day Assessment - Program Goals Tobacco Program Goals: Complete smoking cessation. Attend education classes. Improve Knowledge Test score - Stage of Change Stages of Change:: Contemplate - Learning Barriers Learning Barriers: Participates in education, Declined education, Change in behavior - Family Support Do you have family support?: Yes - Tobacco Use Tobacco Use: Non-smoker Do you use smokeless tobacco?: No - Intervention Smoking Cessation Referral:: No Individual Education/Counseling:: No Education Schedule Given:: Yes - Education Attended class for:: Tobacco triggers, Coronary artery disease, Risk factors, Sexuality, Medical compliance, Cardiac A&P, Angina signs & symptoms Psychosocial - Initial Assess - Target Goals Target Goals: Assess presence or absence of depression. Using a valid screening tool, maximizes coping skills. Positive support system - Psychosocial Test Tool Used:: HANDS Depression Questionnaire - Assistive Devices Fall Risk Assessed:: Yes Psychosocial - 30-Day Assess - Target Goals Target Goals: Assess presence or absence of depression. Using a valid screening tool, maximizes coping skills. Positive support system - Stages of Change Stages of Change:: Contemplate - Psychosocial Test Tool Used:: HANDS Depression Questionnaire - Intervention PS - Interventions: Yes Attend Stress Management Classes, Yes Uses Stress Management Skills, No Referral to Mental Health, No Referral to [facility] Case Management, No Referral to Physician - Education Attended classes for:: Coping techniques, Signs & symptoms of depression, Stress management, Relaxation techniques - Assistive Devices Assistive Devices:: None Fall Risk Assessed:: Yes Patient Health Questionnaire 30-Day Re-eval Assessment 1. Little interest or pleasure in doing things: Not at all 2. Feeling down, depressed, or hopeless: Not at all 3. Trouble falling or staying asleep, or sleeping too much: Nearly every day 4. Feeling tired or having little energy: Not at all 5. Poor appetite or overeating: Not at all 6. Feeling bad about yourself -- or that you are a failure or have let yourself or your family down: Not at all 7. Trouble concentrating on things, such as reading the newspaper or watching television: Not at all 8. Moving or speaking so slowly that other people could have noticed. Or the opposite - being so fidgety or restless that you have been moving around a lot more than usual: Not at all 9. Thoughts that you would be better off , or of hurting yourself in some way: Not at all How difficult have these problems made it for you to do your work, take care of things at home, or get along with other people?: Not difficult at all Total Score: 3 Self-Efficacy 30-Day Re-eval Assessment We would like to know how confident you are in doing certain activities. Please select your confidence level for:: Select your confidence level for the following using the scale 1-10 where 1 is not at all confident and 10 is totally confident. Your score is the average of all 6 responses. Fatigue: How confident are you that you can keep the fatigue caused by your disease from interfering with the things you want to do? Select Number: 9 Physical Discomfort or Pain: How confident are you that you can keep the physical discomfort or pain of your disease from interfering with the things you want to do? Select Number: 9 Emotional Distress: How confident are you that you can keep the emotional distress caused by your disease from interfering with the things you want to do? Select Number: 10 Other Symptoms or Health Problems: How confident are you that you can keep other symptoms or health problems from interfering with the things you want to do? Select Number: 10 Different Tasks and Activities: How confident are you that you can do the different tasks and activities needed to manage your health condition so as to reduce your need to see a doctor? Select Number: 10 Medication: How confident are you that you can do things other than just taking medication to reduce how much your illness affects your everyday life? Select Number: 10 Total Score:: 9
[2017-10-24 11:33] VITALS: BP 104/72; BP 130/68
== END 2017-11-01 23:59 ==
LOC: CR 13:00
PROVIDERS: Family Provider Family Medicine; PCP Family Medicine; Visit Provider Internal Medicine Cardiovascular Disease
DX: Z95.2 Presence of prosthetic heart valve (principal); Z98.890 Other specified postprocedural states
CPT/HCPCS: 93798

== ENCOUNTER → 2018-01-08 10:04 | Outpatient (CLI) | payer MEDICARE, SELFPAY ==
[2018-01-08 11:35] LABS: International Normalized Ratio 1.6; Prothrombin Time (Protime)PT. 19.3 SECONDS (11.7-14.9)
== END ==
PROVIDERS: Family Provider Family Medicine; PCP Family Medicine; Visit Provider Internal Medicine Cardiovascular Disease
DX: Z79.01 Long term (current) use of anticoagulants (principal); Z79.899 Other long term (current) drug therapy; Z95.2 Presence of prosthetic heart valve
CPT/HCPCS: 36415; 85610

== ENCOUNTER → 2018-01-10 08:13 | Outpatient (CLI) | payer MEDICARE, SELFPAY ==
[2018-01-10 08:45] LABS: International Normalized Ratio 1.9; Prothrombin Time (Protime)PT. 21.9 SECONDS (11.7-14.9)
== END ==
PROVIDERS: Family Provider Family Medicine; PCP Family Medicine; Visit Provider Internal Medicine Cardiovascular Disease
DX: Z79.01 Long term (current) use of anticoagulants (principal); Z98.890 Other specified postprocedural states; Z95.2 Presence of prosthetic heart valve
CPT/HCPCS: 36415; 85610

== ENCOUNTER 2018-01-15 08:18 | Outpatient (RCR) | payer MEDICARE, SELFPAY ==
[2017-11-02 00:15] VITALS: BP 104/72; BP 130/68
[2018-01-15 09:06] LABS: Prothrombin Time (Protime)PT. 22.5 SECONDS (11.7-14.9)
== END 2018-02-01 23:59 ==
LOC: CR 08:18
PROVIDERS: Family Provider Family Medicine; PCP Family Medicine; Visit Provider Internal Medicine Cardiovascular Disease
DX: Z95.2 Presence of prosthetic heart valve (principal); Z98.890 Other specified postprocedural states
CPT/HCPCS: 36415; 85610

== ENCOUNTER 2018-01-29 08:54 | Outpatient (RCR) | payer MEDICARE, SELFPAY ==
[2018-01-24 09:40] LABS: Prothrombin Time (Protime)PT. 36.8 SECONDS (11.7-14.9)
[2018-01-24 09:41] LABS: International Normalized Ratio 3.7
[2018-01-29 09:45] LABS: International Normalized Ratio 3.1; Prothrombin Time (Protime)PT. 32.5 SECONDS (11.7-14.9)
== END 2018-01-29 10:00 | disposition home or self-care (01) ==
LOC: LAB 08:54
PROVIDERS: Family Provider Family Medicine; PCP Family Medicine; Visit Provider Internal Medicine Cardiovascular Disease
DX: Z79.01 Long term (current) use of anticoagulants (principal); Z98.890 Other specified postprocedural states; Z95.2 Presence of prosthetic heart valve
CPT/HCPCS: 36415; 85610

== ENCOUNTER 2018-02-14 09:38 | Outpatient (RCR) | payer MEDICARE, SELFPAY ==
[2018-02-08 14:59] LABS: International Normalized Ratio 2.3; Prothrombin Time (Protime)PT. 25.8 SECONDS (11.7-14.9)
[2018-02-14 10:33] LABS: International Normalized Ratio 2.4; Prothrombin Time (Protime)PT. 25.9 SECONDS (11.7-14.9)
== END 2018-02-14 11:00 | disposition home or self-care (01) ==
LOC: LAB 09:38
PROVIDERS: Family Provider Family Medicine; PCP Family Medicine; Visit Provider Internal Medicine Cardiovascular Disease
DX: Z79.01 Long term (current) use of anticoagulants (principal); Z98.890 Other specified postprocedural states; Z95.2 Presence of prosthetic heart valve
CPT/HCPCS: 36415; 85610

== ENCOUNTER 2018-04-01 08:42 | Outpatient (RCR) | payer MEDICARE, SELFPAY ==
[2018-03-22 09:45] LABS: International Normalized Ratio 1.7; Prothrombin Time (Protime)PT. 19.6 SECONDS (11.7-14.9)
[2018-04-01 10:14] LABS: International Normalized Ratio 2.1; Prothrombin Time (Protime)PT. 23.6 SECONDS (11.7-14.9)
== END 2018-04-01 10:00 | disposition home or self-care (01) ==
LOC: LAB 08:42
PROVIDERS: Family Provider Family Medicine; PCP Family Medicine; Referring Provider Internal Medicine Cardiovascular Disease; Visit Provider Internal Medicine Cardiovascular Disease
DX: Z79.01 Long term (current) use of anticoagulants (principal); Z98.890 Other specified postprocedural states; Z95.2 Presence of prosthetic heart valve
CPT/HCPCS: 36415; 85610

== ENCOUNTER 2018-04-22 12:20 | Outpatient (RCR) | payer MEDICARE, SELFPAY ==
[2018-04-22 12:51] LABS: Prothrombin Time (Protime)PT. 22.4 SECONDS (11.7-14.9)
== END 2018-05-03 10:11 | disposition home or self-care (01) ==
LOC: LAB 12:20
PROVIDERS: Family Provider Family Medicine; PCP Family Medicine; Referring Provider Internal Medicine Cardiovascular Disease; Visit Provider Internal Medicine Cardiovascular Disease
DX: Z79.01 Long term (current) use of anticoagulants (principal); Z98.890 Other specified postprocedural states; Z95.2 Presence of prosthetic heart valve
CPT/HCPCS: 85610

== ENCOUNTER 2018-07-11 11:24 | Outpatient (RCR) | payer MEDICARE, SELFPAY ==
[2018-07-11 11:59] LABS: International Normalized Ratio 2.6; Prothrombin Time (Protime)PT. 27.7 SECONDS (11.7-14.9)
== END 2018-08-01 13:47 | disposition home or self-care (01) ==
LOC: LAB 11:24
PROVIDERS: Family Provider Family Medicine; PCP Family Medicine; Referring Provider Internal Medicine Cardiovascular Disease; Visit Provider Internal Medicine Cardiovascular Disease
DX: Z79.01 Long term (current) use of anticoagulants (principal); Z98.890 Other specified postprocedural states; Z95.2 Presence of prosthetic heart valve
CPT/HCPCS: 36415; 85610

== ENCOUNTER 2018-09-30 12:17 | Outpatient (RCR) | payer MEDICARE, SELFPAY ==
[2018-09-02 15:22] LABS: International Normalized Ratio 2.3; Prothrombin Time (Protime)PT. 25.7 SECONDS (11.7-14.9)
[2018-09-30 13:06] LABS: International Normalized Ratio 2.3; Prothrombin Time (Protime)PT. 25.7 SECONDS (11.7-14.9)
[2018-09-30 13:07] LABS: Absolute Lymphocyte Count 2.01 X10^3/ul (0.83-4.51); Absolute Neutrophil Count 0.4 X10^3/uL (2.0-7.7); Differential Indicated SCAN CRITERIA MET; Eosinophil# 0.03 X10^3/uL; Hemoglobin 13.6 g/dl (13.0-16.5); Lymphocyte # 2.01 X10^3/ul (4.0); Lymphocyte % 68.4 % (19-41); Mean Corp Hgb Conc 33.2 g/gl (32-36); Mean Corpuscular Hgb 35.1 pg (27.0-32.0); Mean Corpuscular Volume 105.9 fL (80-94); Mean Platelet Vol. 10.6 fl (6.2-12.0); Monocyte# 0.46 X10^3/uL; Monocyte% 15.6 % (0-10); Neutrophil # 0.42 X10^3/uL (2.7-7.7); Neutrophil % 14.3 % (47-70); POSITIVE COUNT NO; POSITIVE DIFFERENTIAL YES; POSITIVE MORPHOLOGY NO; Platelet Count 140 K/mm3 (150-450); RBC Distribution Width CV 14.8 % (11.6-14.6); RBC Distribution Width SD 56.3 fl (35.1-43.9); Red Blood Count 3.87 M/mm3 (4.6-6.2); White Blood Count 2.9 K/mm3 (4.4-11.0)
[2018-09-30 13:18] LABS: Microalbumin:Creatinine Ratio 522.8 mg/g CRE (<30 mg/g CRE)
[2018-09-30 13:31] LABS: AST(SGOT) 26 U/L (15-37); Alanine Aminotransfer ALT/SGPT 26 U/L (16-61); Alkaline Phosphatase 85 U/L (45-117); Anion Gap 5 (5-15); BUN 26 mg/dL (7-18); BUN/Creat Ratio 19.4 RATIO (10-20); Calcium,Total 9.5 mg/dL (8.5-10.1); Chloride 109 mmol/L (98-107); Cholesterol 169 mg/dL (200); Creatinine, Serum 1.34 mg/dL (0.70-1.30); EST Glomerular Filtration Rate 55 mL/min (>60); Est Glom Filt Rate - Afr Amer 67 mL/min (>60); Ferritin 104 ng/mL (26-388); Globulin 3.9 g/dL (2.2-4.2); Glucose 104 mg/dL (74-106); High Density Lipoprotein 60 mg/dL; Iron 117 ug/dL (65-175); Potassium 4.4 mmol/L (3.5-5.1); Protein, Total 7.9 g/dL (6.4-8.2); Sodium Level 144 mmol/L (136-145); Thyroid Stim Hormone (TSH) 1.81 uIU/mL (0.358-3.74); Triglycerides 104 mg/dL; Very Low Density Lipoprotein 21 mg/dL (5-40)
[2018-09-30 13:32] LABS: Differential Comment SCANNED
== END 2018-10-01 16:00 | disposition home or self-care (01) ==
LOC: LAB 12:17
PROVIDERS: Family Provider Family Medicine; PCP Family Medicine; Referring Provider Internal Medicine Cardiovascular Disease; Visit Provider Internal Medicine Cardiovascular Disease
DX: Z79.01 Long term (current) use of anticoagulants (principal); Z98.890 Other specified postprocedural states; Z95.2 Presence of prosthetic heart valve; E78.5 Hyperlipidemia, unspecified; I42.9 Cardiomyopathy, unspecified; E61.1 Iron deficiency; E11.9 Type 2 diabetes mellitus without complications
CPT/HCPCS: 36415; 80053; 80061; 82043; 82570; 82728; 83540; 83880; 84443; 85025; 85610

== ENCOUNTER 2018-11-06 14:17 | Outpatient (RCR) | payer MEDICARE, SELFPAY | END 2018-11-06 15:00 | disposition home or self-care (01) | LOC: LAB 14:17 | PROVIDERS: Family Provider Family Medicine; PCP Family Medicine; Referring Provider Internal Medicine Cardiovascular Disease; Visit Provider Internal Medicine Cardiovascular Disease | DX: Z79.01 Long term (current) use of anticoagulants (principal); Z98.890 Other specified postprocedural states; Z95.2 Presence of prosthetic heart valve | CPT/HCPCS: 36415; 85610 ==

== ENCOUNTER 2018-12-17 11:14 | Outpatient (RCR) | payer MEDICARE, SELFPAY ==
[2018-12-17 12:02] LABS: International Normalized Ratio 2.6; Prothrombin Time (Protime)PT. 27.5 SECONDS (11.7-14.9)
== END 2019-01-01 16:00 | disposition home or self-care (01) ==
LOC: LAB 11:14
PROVIDERS: Family Provider Family Medicine; PCP Family Medicine; Referring Provider Internal Medicine Cardiovascular Disease; Visit Provider Internal Medicine Cardiovascular Disease
DX: Z79.01 Long term (current) use of anticoagulants (principal); Z98.890 Other specified postprocedural states; Z95.2 Presence of prosthetic heart valve
CPT/HCPCS: 36415; 85610

== ENCOUNTER 2019-01-27 09:08 | Outpatient (RCR) | payer MEDICARE, SELFPAY ==
[2019-01-27 09:39] LABS: International Normalized Ratio 2.9; Prothrombin Time (Protime)PT. 30.8 SECONDS (11.7-14.9)
== END 2019-01-27 11:00 | disposition home or self-care (01) ==
LOC: LAB 09:08
PROVIDERS: Family Provider Family Medicine; PCP Family Medicine; Referring Provider Internal Medicine Cardiovascular Disease; Visit Provider Internal Medicine Cardiovascular Disease
DX: Z79.01 Long term (current) use of anticoagulants (principal)
CPT/HCPCS: 36415; 85610

== ENCOUNTER 2019-03-10 11:39 | Outpatient (RCR) | payer MEDICARE, SELFPAY ==
[2019-03-10 12:50] LABS: International Normalized Ratio 2.9; Prothrombin Time (Protime)PT. 30.1 SECONDS (11.7-14.9)
== END 2019-03-10 18:00 | disposition home or self-care (01) ==
LOC: LAB 11:39
PROVIDERS: Family Provider Family Medicine; PCP Family Medicine; Referring Provider Internal Medicine Cardiovascular Disease; Visit Provider Internal Medicine Cardiovascular Disease
DX: Z79.01 Long term (current) use of anticoagulants (principal)
CPT/HCPCS: 36415; 85610

== ENCOUNTER → 2019-03-28 10:25 | Outpatient (CLI) | payer MEDICARE, SELFPAY | PROVIDERS: Family Provider Family Medicine; PCP Family Medicine; Referring Provider Family Medicine; Visit Provider Family Medicine | DX: R69 Illness, unspecified (principal) ==

== ENCOUNTER 2019-05-06 12:30 | Outpatient (RCR) | payer MEDICARE, SELFPAY ==
[2019-05-06 14:08] LABS: International Normalized Ratio 2.2; Prothrombin Time (Protime)PT. 24.3 SECONDS (11.7-14.9)
== END 2019-05-06 18:00 | disposition home or self-care (01) ==
LOC: LAB 12:30
PROVIDERS: Family Provider Family Medicine; PCP Family Medicine; Referring Provider Internal Medicine Cardiovascular Disease; Visit Provider Internal Medicine Cardiovascular Disease
DX: Z79.01 Long term (current) use of anticoagulants (principal)
CPT/HCPCS: 36415; 85610

== ENCOUNTER → 2019-06-25 13:57 | Outpatient (CLI) | payer MEDICARE, SELFPAY ==
[2019-06-02 13:38] VITALS: BMI 30.7
--- NOTE | 2019-06-25 14:00 | ECHOD_ITS ---
Reason For Study: VALVE REPLACEMENT EVAL Procedure This was a 2D Doppler, Color Flow transthoracic echocardiogram. The study was technically difficult. Exam performed in department. Left Ventricle Normal size and thickness. The estimated ejection fraction is 45-50 %. Septal motion consistent with IVCD. There is mild global hypokinesis of the left ventricle. Right Ventricle Normal size and thickness. Normal systolic function. Atria The left atrium is mildly enlarged. Normal right atrium. Normal atrial septum. Mitral Valve There is no mitral valve stenosis. Status post mitral valve repair with annuloplasty ring. Tricuspid Valve Normal tricuspid valve. Unable to estimate RV systolic pressure due to insufficient tricuspid regurgitant envelope. Aortic Valve Peak aortic valve gradient 10 mmHg. Mean aortic valve gradient 6 mmHg. Stable appearing bioprosthetic aortic valve apparatus. Pulmonic Valve Normal pulmonic valve. Great Vessels Normal aortic root. Normal arch. Normal inferior vena cava. Inferior vena cava collapse with sniff. Pericardium/Pleural No pericardial effusion. MMode/2D Measurements & Calculations LVIDd: 4.8 cm IVSd: 1.3 cm Ao root diam: 4.0 cm LVIDs: 3.8 cm LVPWd: 1.0 cm FS: 21.3 % LAV(MOD-bp): 72.4 ml LA A4 area: 20.5 cm2 LA dimension(2D): 4.6 cm LAV(MOD-bp) Indexed: 39.2 ml/m2 LAV(MOD-sp2): 67.9 ml LAV(MOD-sp4): 68.8 ml RA A4 area: 16.3 cm2 Time Measurements MV dec time: 0.17 sec Doppler Measurements & Calculations MV E max chaim: 101.9 cm/sec Lat Peak E' Chaim: 9.2 cm/sec Med Peak E' Chaim: 3.7 cm/sec MV A max chaim: 88.3 cm/sec E/E' lat: 11.1 E/E' med: 27.2 MV E/A: 1.2 MV V2 max: 100.2 cm/sec Ao V2 max: 156.9 cm/sec LV V1 max: 76.1 cm/sec MV max P.0 mmHg Ao max P.9 mmHg LV V1 max P.3 mmHg MV V2 mean: 57.6 cm/sec Ao V2 mean: 115.3 cm/sec LV V1 mean P.4 mmHg MV mean P.6 mmHg Ao mean P.7 mmHg LV V1 mean: 56.0 cm/sec MV V2 VTI: 28.5 cm Ao V2 VTI: 31.5 cm LV V1 VTI: 15.4 cm PA V2 max: 106.0 cm/sec MV P1/2t-pr_phl: 63.4 msec Interpretation Summary The estimated ejection fraction is 45-50 %. There is mild global hypokinesis of the left ventricle. The left atrium is mildly enlarged. Status post mitral valve repair with annuloplasty ring. There is no mitral valve stenosis. Unable to estimate RV systolic pressure due to insufficient tricuspid regurgitant envelope. Stable appearing and normal functioning bioprosthetic aortic valve apparatus. Compared with echo report dated 07/23/2017, the patient's LV function has markedly improved from 15 to 20% to 40 to 45%. Left pleural effusion has resolved. Patient now appears to be in normal sinus rhythm. Ordering Physician: Erum Blank Referring Physician: Berny Almanza Performed By: Jacqueline Kahn RDCS, RVT
== END ==
LOC: CVS 14:00
PROVIDERS: Family Provider Family Medicine; PCP Family Medicine; Referring Provider Physician Assistant Medical; Visit Provider Physician Assistant Medical
DX: I10 Essential (primary) hypertension (principal); I35.0 Nonrheumatic aortic (valve) stenosis; I43 Cardiomyopathy in diseases classified elsewhere; G47.33 Obstructive sleep apnea (adult) (pediatric); Z98.890 Other specified postprocedural states; Z95.2 Presence of prosthetic heart valve
CPT/HCPCS: 93306

== ENCOUNTER 2019-08-26 11:19 | Outpatient (RCR) | payer MEDICARE, SELFPAY ==
[2019-06-02 13:38] VITALS: BMI 30.7
[2019-08-26 12:17] LABS: International Normalized Ratio 1.1
== END 2019-08-26 18:00 | disposition home or self-care (01) ==
LOC: LAB 11:19
PROVIDERS: Family Provider Family Medicine; PCP Family Medicine; Referring Provider Internal Medicine Cardiovascular Disease; Visit Provider Internal Medicine Cardiovascular Disease
DX: Z79.01 Long term (current) use of anticoagulants (principal)
CPT/HCPCS: 36415; 85610

== ENCOUNTER → 2019-11-05 11:42 | Outpatient (CLI) | payer MEDICARE, SELFPAY ==
[2019-06-02 13:38] VITALS: BMI 30.7
[2019-11-05 15:37] LABS: Hematocrit 39.3 % (40-54); Hemoglobin 12.6 g/dL (13.0-16.5); Mean Corp Hgb Conc 32.1 g/dL (32-36); Mean Corpuscular Volume 112.3 fL (80-94); Mean Platelet Vol. 11.2 fl (6.2-12.0); Platelet Count 131 K/mm3 (150-450); RBC Distribution Width CV 15.7 % (11.6-14.6); RBC Distribution Width SD 64.5 fl (35.1-43.9); White Blood Count 3.3 K/mm3 (4.4-11.0)
== END ==
PROVIDERS: PCP Family Medicine; Visit Provider Family Medicine
DX: D69.6 Thrombocytopenia, unspecified (principal)
CPT/HCPCS: 36415; 80053; 80061; 84443; 85027

== ENCOUNTER → 2019-11-11 09:33 | Outpatient (CLI) | payer MEDICARE, SELFPAY ==
[2019-06-02 13:38] VITALS: BMI 30.7
[2019-11-11 12:15] LABS: Absolute Lymphocyte Count 2.11 X10^3/uL (0.83-4.51); Absolute Neutrophil Count 0.6 X10^3/uL (2.0-7.7); Basophil# 0.02 X10^3/uL; Basophil% 0.6 % (0-1); Eosinophil# 0.04 X10^3/uL; Eosinophils% 1.1 % (0-5); Hematocrit 37.8 % (40-54); Hemoglobin 12.4 g/dL (13.0-16.5); Lymphocyte # 2.11 X10^3/ul (4.0); Lymphocyte % 59.9 % (19-41); Mean Corp Hgb Conc 32.8 g/dL (32-36); Mean Corpuscular Hgb 36.3 pg (27.0-32.0); Mean Corpuscular Volume 110.5 fL (80-94); Mean Platelet Vol. 10.9 fl (6.2-12.0); Monocyte# 0.68 X10^3/uL; Monocyte% 19.3 % (0-10); NRBC Flagged by Analyzer 0 % (0-5); Neutrophil # 0.64 X10^3/uL (2.7-7.7); Neutrophil % 18.2 % (47-70); POSITIVE DIFFERENTIAL YES; Platelet Count 147 K/mm3 (150-450); RBC Distribution Width CV 15.1 % (11.6-14.6); RBC Distribution Width SD 61.3 fl (35.1-43.9); Red Blood Count 3.42 M/mm3 (4.6-6.2); White Blood Count 3.5 K/mm3 (4.4-11.0)
[2019-11-11 12:18] LABS: Differential Indicated SCAN CRITERIA MET
[2019-11-11 12:55] LABS: AST(SGOT) 23 U/L (15-37); Alanine Aminotransfer ALT/SGPT 21 U/L (16-61); Albumin, Serum 3.9 g/dL (3.2-5.0); Alkaline Phosphatase 84 U/L (45-117); Anion Gap 7 (5-15); BUN 40 mg/dL (7-18); BUN/Creat Ratio 22.9 RATIO (10-20); Calcium,Total 9.4 mg/dL (8.5-10.1); Chloride 108 mmol/L (98-107); Cholesterol 186 mg/dL (200); Creatinine, Serum 1.75 mg/dL (0.70-1.30); EST Glomerular Filtration Rate 40 mL/min (>60); Est Glom Filt Rate - Afr Amer 49 mL/min (>60); Globulin 3.9 g/dL (2.2-4.2); Glucose 166 mg/dL (74-106); High Density Lipoprotein 64 mg/dL; Potassium 3.9 mmol/L (3.5-5.1); Protein, Total 7.8 g/dL (6.4-8.2); Sodium Level 140 mmol/L (136-145); Thyroid Stim Hormone (TSH) 2.37 uIU/mL (0.358-3.74); Triglycerides 60 mg/dL; Very Low Density Lipoprotein 12 mg/dL (5-40)
== END ==
LOC: MFPLAB 09:34
PROVIDERS: PCP Family Medicine; Referring Provider Family Medicine; Visit Provider Family Medicine
DX: E11.9 Type 2 diabetes mellitus without complications (principal); D69.6 Thrombocytopenia, unspecified
CPT/HCPCS: 36415; 80053; 80061; 84443; 85025

== ENCOUNTER → 2019-12-16 10:30 | Outpatient (CLI) | payer MEDICARE, SELFPAY ==
[2019-11-27 14:48] VITALS: BMI 30.5
[2019-12-16 13:25] LABS: Anion Gap 6 (5-15); BUN 21 mg/dL (7-18); BUN/Creat Ratio 17.4 RATIO (10-20); Chloride 108 mmol/L (98-107); Creatinine, Serum 1.21 mg/dL (0.70-1.30); EST Glomerular Filtration Rate 62 mL/min (>60); Est Glom Filt Rate - Afr Amer 75 mL/min (>60); Glucose 123 mg/dL (74-106); Potassium 4.6 mmol/L (3.5-5.1); Sodium Level 140 mmol/L (136-145)
== END ==
LOC: MFPLAB 10:31
PROVIDERS: PCP Family Medicine; Referring Provider Family Medicine; Visit Provider Family Medicine
DX: I10 Essential (primary) hypertension (principal)
CPT/HCPCS: 36415; 80048

== ENCOUNTER → 2020-05-10 11:23 | Outpatient (CLI) | payer MEDICARE, SELFPAY ==
[2019-11-27 14:48] VITALS: BMI 30.5
[2020-05-10 12:23] LABS: Hematocrit 36.3 % (40-54); Hemoglobin 11.4 g/dL (13.0-16.5); Mean Corp Hgb Conc 31.4 g/dL (32-36); Mean Corpuscular Hgb 35.3 pg (27.0-32.0); Mean Corpuscular Volume 112.4 fL (80-94); Mean Platelet Vol. 10.4 fl (6.2-12.0); Platelet Count 179 K/mm3 (150-450); RBC Distribution Width CV 15.4 % (11.6-14.6); Red Blood Count 3.23 M/mm3 (4.6-6.2); White Blood Count 3.3 K/mm3 (4.4-11.0)
[2020-05-10 12:42] LABS: ALB/GLOB Ratio 0.9 RATIO (0.9-2.4); AST(SGOT) 13 U/L (15-37); Alanine Aminotransfer ALT/SGPT 18 U/L (16-61); Albumin, Serum 3.6 g/dL (3.2-5.0); Alkaline Phosphatase 85 U/L (45-117); Anion Gap 4 (5-15); BUN 22 mg/dL (7-18); BUN/Creat Ratio 17.5 RATIO (10-20); Calcium,Total 8.9 mg/dL (8.5-10.1); Chloride 113 mmol/L (98-107); Cholesterol 166 mg/dL (200); Creatinine, Serum 1.26 mg/dL (0.70-1.30); EST Glomerular Filtration Rate 59 mL/min (>60); Est Glom Filt Rate - Afr Amer 71 mL/min (>60); Globulin 3.8 g/dL (2.2-4.2); Glucose 135 mg/dL (74-106); High Density Lipoprotein 70 mg/dL; Potassium 3.8 mmol/L (3.5-5.1); Protein, Total 7.4 g/dL (6.4-8.2); Sodium Level 141 mmol/L (136-145); Triglycerides 57 mg/dL; Very Low Density Lipoprotein 11 mg/dL (5-40)
== END ==
LOC: MFPLAB 11:24
PROVIDERS: PCP Family Medicine; Referring Provider Family Medicine; Visit Provider Family Medicine
DX: D69.6 Thrombocytopenia, unspecified (principal); E11.9 Type 2 diabetes mellitus without complications
CPT/HCPCS: 36415; 80053; 80061; 85027

== ENCOUNTER 2021-09-02 13:57 | Outpatient (CLI) | payer MEDICARE, SELFPAY ==
--- NOTE | 2021-09-02 14:01 | ECHOD_ITS ---
Reason For Study: VALVE REPLACEMENT EVAL Procedure This was a 2D Doppler, Color Flow transthoracic echocardiogram. The study was technically difficult. Exam performed in department. Left Ventricle Normal LV size. Left ventricular systolic function is lower limits of normal. The estimated ejection fraction is 50 %. There is evidence of diastolic dysfunction. Right Ventricle Normal RV size. Normal systolic function. Atria Normal left atrium. Normal right atrium. No doppler evidence for ASD. Mitral Valve An annuloplasty ring is noted in the mitral position. Trivial transvalvular insufficiency of the mitral valve. Tricuspid Valve Normal tricuspid valve. Trivial tricuspid valve insufficiency. Right ventricular systolic pressure estimated to be 35 mmHg. Aortic Valve Stable appearing bioprosthetic aortic valve apparatus. Pulmonic Valve The pulmonic valve is not well visualized. Trivial pulmonic valve insufficiency. Great Vessels Normal sized aortic root. Pericardium/Pleural No pericardial effusion. MMode/2D Measurements & Calculations LVIDd: 4.8 cm IVSd: 1.1 cm Ao root diam: 3.2 cm LVIDs: 3.4 cm LVPWd: 0.92 cm RVDd: 2.6 cm FS: 29.2 % LA dimension(2D): 3.7 cm Time Measurements MV dec time: 0.18 sec Doppler Measurements & Calculations MV E max chaim: 84.8 cm/sec Lat Peak E' Chaim: 8.9 cm/sec Med Peak E' Chaim: 5.5 cm/sec MV A max chaim: 92.7 cm/sec E/E' lat: 9.5 E/E' med: 15.5 MV E/A: 0.91 Ao V2 max: 142.9 cm/sec LV V1 max: 96.2 cm/sec PA V2 max: 76.2 cm/sec Ao max P.2 mmHg LV V1 max P.7 mmHg TR max chaim: 284.5 cm/sec TR max P.4 mmHg ECHO/Echo Complete Interpretation Summary The study was technically difficult. Left ventricular systolic function is lower limits of normal. The estimated ejection fraction is 50 %. An annuloplasty ring is noted in the mitral position. Trivial transvalvular insufficiency of the mitral valve. Trivial tricuspid valve insufficiency. Stable appearing bioprosthetic aortic valve apparatus. Trivial pulmonic valve insufficiency. Right ventricular systolic pressure estimated to be 35 mmHg. There is evidence of diastolic dysfunction. Ordering Physician: Romel Ibrahim Referring Physician: Berny Almanza Performed By: Jacqueline Kahn, ITZEL, RVT
== END 2021-09-02 23:59 | disposition home or self-care (01) ==
LOC: CVS 14:00
PROVIDERS: PCP Family Medicine; Referring Provider Internal Medicine Cardiovascular Disease; Visit Provider Internal Medicine Cardiovascular Disease
DX: R06.09 Other forms of dyspnea (principal); I11.0 Hypertensive heart disease with heart failure; I50.20 Unspecified systolic (congestive) heart failure; Z98.890 Other specified postprocedural states; Z95.3 Presence of xenogenic heart valve
CPT/HCPCS: 93306

== ENCOUNTER → 2021-10-10 | Outpatient (CLI) | payer MEDICARE, SELFPAY ==
[2021-10-10 15:31] LABS: Hemoglobin 12.1 g/dL (13.0-16.5); Mean Corp Hgb Conc 31.8 g/dL (32-36); Mean Corpuscular Hgb 35.7 pg (27.0-32.0); Mean Corpuscular Volume 112.1 fL (80-94); Mean Platelet Vol. 11.2 fl (6.2-12.0); POSITIVE MORPHOLOGY YES; Platelet Count 138 K/mm3 (150-450); RBC Distribution Width CV 15.9 % (11.6-14.6); RBC Distribution Width SD 65.3 fl (35.1-43.9); Red Blood Count 3.39 M/mm3 (4.6-6.2); White Blood Count 3.9 K/mm3 (4.4-11.0)
[2021-10-10 15:40] LABS: Scan Indicated on CBC? Y/N YES- FLAGS NOTED
[2021-10-10 16:07] LABS: Differential Comment SCANNED
[2021-10-10 16:16] LABS: ALB/GLOB Ratio 1.1 RATIO (0.9-2.4); AST(SGOT) 16 U/L (15-37); Alanine Aminotransfer ALT/SGPT 18 U/L (16-61); Albumin, Serum 3.9 g/dL (3.2-5.0); Alkaline Phosphatase 78 U/L (45-117); Anion Gap 7 (5-15); BUN 33 mg/dL (7-18); BUN/Creat Ratio 17.8 RATIO (10-20); Calcium,Total 8.9 mg/dL (8.5-10.1); Chloride 109 mmol/L (98-107); Cholesterol 164 mg/dL (200); Creatinine, Serum 1.85 mg/dL (0.70-1.30); EST Glomerular Filtration Rate 38 mL/min (>60); Est Glom Filt Rate - Afr Amer 46 mL/min (>60); Globulin 3.7 g/dL (2.2-4.2); Glucose 117 mg/dL (74-106); High Density Lipoprotein 61 mg/dL; Potassium 4.1 mmol/L (3.5-5.1); Protein, Total 7.6 g/dL (6.4-8.2); Sodium Level 141 mmol/L (136-145); Thyroid Stim Hormone (TSH) 2.27 uIU/mL (0.358-3.74); Triglycerides 44 mg/dL; Very Low Density Lipoprotein 9 mg/dL (5-40)
[2021-10-10 16:34] LABS: Hemoglobin A1c 6.3 % (3.8-5.6)
== END | disposition home or self-care (01) ==
LOC: MFPLAB 10:46
PROVIDERS: PCP Family Medicine; Visit Provider Family Medicine
DX: D69.6 Thrombocytopenia, unspecified (principal); E11.9 Type 2 diabetes mellitus without complications
CPT/HCPCS: 36415; 80053; 80061; 83036; 84443; 85027

== ENCOUNTER → 2022-02-02 | Outpatient (CLI) | payer MEDICARE, SELFPAY ==
--- NOTE | 2022-02-02 14:28 | RAD_ITS ---
STUDY: X-RAY CHEST REASON FOR EXAM: Male, 81 years old. dyspnea TECHNIQUE: PA and lateral views of the chest. COMPARISON: 07/23/2017 FINDINGS: Status post heart valve replacement surgery with a left atrial appendage closure device. The lungs are clear and expanded. There is no demonstrated pleural abnormality. Normal size heart. Normal mediastinum and chris. Normal visualized pulmonary arteries. Normal visualized aortic arch and descending thoracic aorta. Normal visualized thoracic spine. Normal visualized ribs, clavicles, and shoulders. There is no demonstrated abnormality of the visualized soft tissue structures of the upper abdomen. RAD/Chest PA and Lateral IMPRESSION: No active disease. Electronically Signed: John Greene MD at 16:50 EDT ,
[2022-02-02 17:46] LABS: Absolute Lymphocyte Count 1.94 X10^3/uL (0.83-4.51); Basophil# 0.02 X10^3/uL; Basophil% 0.5 % (0-1); Eosinophil# 0.09 X10^3/uL; Eosinophils% 2.1 % (0-5); Hematocrit 35.7 % (40-54); Hemoglobin 11.6 g/dL (13.0-16.5); Lymphocyte # 1.94 X10^3/ul (0.83-4.51); Lymphocyte % 46.1 % (19-41); Mean Corp Hgb Conc 32.5 g/dL (32-36); Mean Corpuscular Hgb 35.8 pg (27.0-32.0); Mean Corpuscular Volume 110.2 fL (80-94); Mean Platelet Vol. 10.6 fl (6.2-12.0); Monocyte# 1.06 X10^3/uL; Monocyte% 25.2 % (0-10); NRBC Flagged by Analyzer 0 % (0-5); Neutrophil # 1.03 X10^3/uL (2.7-7.7); Neutrophil % 24.4 % (47-70); Platelet Count 171 K/mm3 (150-450); RBC Distribution Width CV 15.3 % (11.6-14.6); RBC Distribution Width SD 62.8 fl (35.1-43.9); RET-HE 36.8 pg (30-35); Red Blood Count 3.24 M/mm3 (4.6-6.2); Reticulocyte Count 1.87 % (0.5-1.5); White Blood Count 4.2 K/mm3 (4.4-11.0)
[2022-02-02 18:10] LABS: ALB/GLOB Ratio 0.9 RATIO (0.9-2.4); AST(SGOT) 16 U/L (15-37); Alanine Aminotransfer ALT/SGPT 20 U/L (16-61); Albumin, Serum 3.9 g/dL (3.2-5.0); Alkaline Phosphatase 87 U/L (45-117); Anion Gap 8 (5-15); BUN 31 mg/dL (7-18); BUN/Creat Ratio 18.1 RATIO (10-20); Calcium,Total 9.5 mg/dL (8.5-10.1); Chloride 110 mmol/L (98-107); Creatinine, Serum 1.71 mg/dL (0.70-1.30); EST Glomerular Filtration Rate 41 mL/min (>60); Est Glom Filt Rate - Afr Amer 50 mL/min (>60); Ferritin 244 ng/mL (26-388); Globulin 4.2 g/dL (2.2-4.2); Glucose 126 mg/dL (74-106); Iron 77 ug/dL (65-175); Potassium 4.7 mmol/L (3.5-5.1); Protein, Total 8.1 g/dL (6.4-8.2); Sodium Level 141 mmol/L (136-145); Thyroid Stim Hormone (TSH) 1.84 uIU/mL (0.358-3.74)
[2022-02-02 18:44] LABS: Differential Indicated SCAN CRITERIA MET; POSITIVE COUNT NO; POSITIVE DIFFERENTIAL YES; POSITIVE MORPHOLOGY NO
[2022-02-02 18:46] LABS: Platelet Estimate ADEQUATE (ADEQ); Red Cell Morphology N CHROM NORMAL (NORM C&C)
[2022-02-02 18:47] LABS: Anisocytosis 1+
[2022-02-03 14:53] LABS: BNP,B-Type NATRIURETIC PEPTIDE 85.1 pg/mL (0-100)
== END | disposition home or self-care (01) ==
LOC: MTLAB 14:25
PROVIDERS: PCP Family Medicine; Referring Provider Family Medicine; Visit Provider Family Medicine
DX: I42.9 Cardiomyopathy, unspecified (principal); R06.00 Dyspnea, unspecified; E61.1 Iron deficiency
CPT/HCPCS: 36415; 71046; 80053; 82728; 83540; 83880; 84443; 85025; 85045

== ENCOUNTER 2022-03-06 18:12 | Inpatient (IN) | payer MEDICARE, SELFPAY ==
[2022-03-06] VITALS (15 sets, daily range): BP systolic 82–131; BP diastolic 61–100; PULSE 100–124; RESP 18–32; TEMP 36.4–37.2; O2SAT 84–98; BMI 27.4; BMI 27.2
--- NOTE | 2022-03-06 19:12 | EKG12_ITS ---
Test Reason : DYSRHYTHMIA Blood Pressure : / mmHG Vent. Rate : 120 BPM Atrial Rate : 127 BPM P-R Int : 000 ms QRS Dur : 114 ms QT Int : 332 ms P-R-T Axes : 000 -71 090 degrees QTc Int : 469 ms Accelerated Junctional rhythm Left axis deviation Nonspecific ST and T wave abnormality Abnormal ECG Confirmed by ISHMAEL CEDENO, ZAHRA ([id number]), visual effects editor KENDRA WIN ([id number]) on 03/08/2022 9:24:34 AM Referred By: CORINE Confirmed By:ZAHRA QUIÑONES MD
--- NOTE | 2022-03-06 19:14 | ED.VIS.DYS ---
HPI History of Present Illness Chief Complaint: Shortness of Breath Informant: patient Onset/Context/Timing Onset: Days Context: gradual Timing: Continuous Current Severity: Mild Maximum Severity: Mild Worsened by: Nothing Associated Symptoms cough Chest Pain: Positive for None Narrative Narrative: 81-year-old male no past medical history for bioprosthetic heart valve, hypertension, chronic kidney disease not on dialysis. Prior CHF and diabetes. He also has a history of anemia but does not believe he was ever transfused. According to he and his has been short of breath and has had a nonproductive cough for approximately a week. No chest pain or hemoptysis. No fever. He is never had a DVT or PE. He is reportedly not on any blood thinners. He is also had some diarrhea without melena. Denies any recent hospitalization. 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 Metabolic encephalopathy Mitral valve insufficiency Nonrheumatic aortic valve stenosis Nonrheumatic aortic valve stenosis with insufficiency Type 2 diabetes mellitus with hyperglycemia Home Medications polysaccharide iron complex 150 mg iron capsule (Ferrex) 150 mg PO DAILY 06/02/19 [History Last Taken 03/05/22] amlodipine 2.5 mg tablet 2.5 mg PO DAILY blood pressure 06/24/20 [History Last Taken 03/06/22] fluticasone propionate 50 mcg/actuation nasal spray,suspension (Allergy Relief (fluticasone)) 2 spray intranasal DAILY allergies 04/06/21 [History Last Taken 03/06/22] handicap placcard #1 ea 10/05/21 [Rx Last Taken Unknown] ascorbic acid (vitamin C) 500 mg tablet (Vitamin C) 500 mg PO DAILY supplement 03/06/22 [History Last Taken 03/05/22] carvedilol 3.125 mg tablet 1.5625 mg PO BID blood pressure 03/06/22 [History Last Taken 03/06/22] glipizide 5 mg tablet, extended release 24 hr 5 mg PO DAILY 03/06/22 [History Last Taken 03/06/22] losartan 50 mg tablet 50 mg PO DAILY blood pressure 03/06/22 [History Last Taken 03/06/22] metformin 500 mg tablet,extended release 24 hr 500 mg PO DAILY dm 03/06/22 [History Last Taken 03/06/22] multivit,Ca,min-iron fum-folic acid-bacill 14 mg-200 mcg-90 mg tablet 1 tab PO DAILY health maintenance 03/06/22 [History Last Taken 03/05/22] Allergy/AdvReac Type Severity Reaction Status Date / Time No Known Allergies Allergy Verified 03/06/22 18:15 Family History Mother Hypertension Father Hypertension Surgical History History of adenoidectomy History of aortic valve replacement with bioprosthetic valve (~07/04/17) History of left heart catheterization (~04/2017) History of tonsillectomy Hx of cholecystectomy S/P 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 Nonproductive cough. Review of Systems ROS Unobtainable: Denies due to encephalopathy Constitutional Constitutional ED: Denies chills or fever(s) Eyes Eyes: Denies blurry vision ENT ENT ED: Denies ear pain Cardiovascular Cardiovascular: Denies chest pain Respiratory/Chest Respiratory/Chest: Reports cough and dyspnea Gastrointestinal Gastrointestinal: Reports diarrhea; Denies abdominal pain, constipation, melena, nausea or vomiting Genitourinary Genitourinary ED: Denies dysuria or hematuria Musculoskeletal Musculoskeletal: Denies arthralgias Integumentary Denies abscess Neurologic Neurologic: Denies headache(s) Psychiatric Psychiatric: Denies anxiety Endocrine Endocrinology: Denies cold intolerance Hematologic/Lymphatic Hematologic/Lymphatic: Denies easy bleeding Allergic/Immunologic Allergic/Immunologic ED: Denies mouth swelling or tongue swelling EXAM Physical Exam Narrative Exam Narrative: Elderly male vital signs stable he is tachycardic at 124. His pulse ox on room air is 84% on 3 L he is 93%. He is hypoxic without O2. Temperature 99. He does not look septic. H EENT exam unremarkable. Neck nontender. No JVD. No lymphadenopathy. Lungs coarse breath sounds bilaterally. Heart tachycardic rate about 130 no murmur appreciated. Abdomen soft nontender normal bowel sounds no peritoneal signs. Moving all 4 extremities. Calves are nontender without edema or cords. Neurologically is awake and alert with no focal motor deficits. Const Vital Signs: 03/06/22 18:13 03/06/22 18:15 03/06/22 18:42 Temperature 99 F Temperature Source Temporal Pulse Rate 124 H 120 H Respiratory Rate 30 H 28 H Respiratory Effort Respiratory Depth Respiratory Pattern Blood Pressure 131/86 H 117/69 Blood Pressure Mean 101 85 Pulse Ox 84 93 96 Oxygen Delivery Method Room Air Nasal Cannula Nasal Cannula Oxygen Flow Rate (L/min) 3 6 03/06/22 18:51 03/06/22 19:18 03/06/22 19:18 Temperature Temperature Source Pulse Rate 120 H Respiratory Rate 30 H Respiratory Effort Short of Breath Labored Respiratory Depth Respiratory Pattern Tachypnea Blood Pressure 118/100 H Blood Pressure Mean 106 Pulse Ox 91 91 Oxygen Delivery Method Nasal Cannula Nasal Cannula Nasal Cannula Oxygen Flow Rate (L/min) 6 6 6 03/06/22 19:27 03/06/22 19:27 03/06/22 20:11 Temperature Temperature Source Pulse Rate 123 H 120 H Respiratory Rate 28 H 32 H 26 H Respiratory Effort Short of Breath Labored Accessory Muscle Use Respiratory Depth Shallow Respiratory Pattern Tachypnea Tachypnea Blood Pressure 82/61 L Blood Pressure Mean 68 Pulse Ox 96 98 Oxygen Delivery Method Nasal Cannula Nasal Cannula Oxygen Flow Rate (L/min) 6 6 03/06/22 20:42 03/06/22 21:04 Temperature Temperature Source Pulse Rate 115 H 119 H Respiratory Rate 26 H 32 H Respiratory Effort Respiratory Depth Respiratory Pattern Blood Pressure 97/67 95/67 Blood Pressure Mean 77 76 Pulse Ox 97 96 Oxygen Delivery Method Nasal Cannula Nasal Cannula Oxygen Flow Rate (L/min) 6 6 Positive well nourished and well developed; Negative for obese, cachectic, contractures or unkempt General Appearance ED: well developed and NAD; Negative for unkempt, cachectic, contractures or pallor Nutritional Appearance: Negative for cachectic or obese HEENT Reports moist mucous membranes; Denies dry mucous membranes atraumatic; Negative for trauma or tenderness Mouth ED: No dry mucous membranes Mouth: No dry mucous membranes Eyes PERRL and EOMs intact bilaterally General Eye ED: Negative for pale conjunctiva or scleral icterus Neck no lymphadenopathy, supple, no meningeal signs and no JVD General: Negative for tenderness Lymph Lymphatic: Negative for other Chest Wall Chest: Negative for other Resp normal respiratory effort and No clear to auscultation bilaterally Resp Narrative: Coarse breath sounds bilaterally. Auscultation: Negative for rales, rhonchi or wheezes Cardio regular rhythm, S1 normal heart sound, S2 normal heart sound and no murmurs; Negative for regular rate Rate: tachycardic GI non-tender, non-distended and no masses Inspection: Negative for other Auscultation: normoactive bowel sounds Palpation: soft; Negative for tender Back/Spine no CVA tenderness and normal to inspection General Back: Negative for CVA tenderness Extremity normal to inspection General Extremety ED: Negative for edema or tenderness General Extremity: Negative for edema Neuro oriented x3 Sensorium / Orientation: alert, oriented to person, oriented to place and oriented to time; Negative for orientation impaired, confused, lethargic or stuporous Speech: speech normal Motor Exam: strength 5/5 throughout Psych mental status grossly normal Appearance: Negative for unkempt Attitude: No agitated Mood & Affect: anxious; Negative for depressed Thought Process: normal thought process Skin no wounds and skin turgor normal General Skin Exam: Negative for jaundice or pallor Lesions: no lesions Rashes: no rashes Trauma: Negative for abrasion MDM MDM MDM Narrative Medical decision making narrative: 81-year-old male cough and short of breath for a week. Pneumonia versus CHF CHF versus other etiologies. Repeat exam at 9:50 PM unchanged. Patient is doing well on oxygen and taken off the oxygen he becomes hypoxic in the mid 80s. I do not have a specific cause. His creatinine is too high to do a CTA of the chest. His initial rapid COVID test is negative. I will send a COVID PCR. I will do a CAT scan of the chest without contrast looking for potential pneumonia. This was not seen on x-ray. I will speak to the hospitalist about admitting him for hypoxia. He will be given a 500 cc fluid bolus because currently his blood pressure is running in the 90s. He is in no distress. Lab Data Attestation: I reviewed the patient's lab results. Lab results narrative: CBC shows white count 10.3. H&H 11.4 and 35. Platelets 150,000. PT/INR and PTT of 15, 1.2 and 33. Electrolytes unremarkable gap of 10. BUN is elevated at 42 creatinine 2.1 he does have a history of chronic kidney disease. Glucose 281 with a history of diabetes. Troponin normal at 32. BNP normal at 79. Chest shows no acute abnormality. COVID test negative. Labs: Laboratory Results - last 24 hr 03/06/22 03/06/22 03/06/22 19:40 19:40 19:40 WBC 10.3 RBC 3.21 L Hgb 11.4 L Hct 35.5 L MCV 110.6 H MCH 35.5 H MCHC 32.1 RDW Std Deviation 62.1 H RDW Coeff of Merry 15.2 H Plt Count 150 MPV 11.4 Immature Gran % (Auto) 1.100 H Neut % (Auto) 68.1 Lymph % (Auto) 9.1 L [place] % (Auto) 21.4 H Eos % (Auto) 0.2 Baso % (Auto) 0.1 Absolute Neuts (auto) 7.0 Absolute Lymphs (auto) 0.94 Nucleated RBC % 0.2 Differential Comment SCANNED PT 15.3 H INR 1.2 APTT 33.0 Sodium 140 Potassium 4.9 Chloride 108 H Carbon Dioxide 22.0 Anion Gap 10 BUN 42 H Creatinine 2.10 H Estim Creat Clear Calc 23.88 Est GFR (MDRD) Af Amer 39 L Est GFR (MDRD) Non-Af 33 L BUN/Creatinine Ratio 20.0 Glucose 281 H Calcium 9.7 Troponin I High Sens 32 B-Natriuretic Peptide 03/06/22 19:40 WBC RBC Hgb Hct MCV MCH MCHC RDW Std Deviation RDW Coeff of Merry Plt Count MPV Immature Gran % (Auto) Neut % (Auto) Lymph % (Auto) [place] % (Auto) Eos % (Auto) Baso % (Auto) Absolute Neuts (auto) Absolute Lymphs (auto) Nucleated RBC % Differential Comment PT INR APTT Sodium Potassium Chloride Carbon Dioxide Anion Gap BUN Creatinine Estim Creat Clear Calc Est GFR (MDRD) Af Amer Est GFR (MDRD) Non-Af BUN/Creatinine Ratio Glucose Calcium Troponin I High Sens B-Natriuretic Peptide 79.3 Radiography Chest X-Ray - ED: 1 View, Read by ED Physician, Heart, Lungs, Mediastinum, Bony Structures, No Acute Disease and Chronic Changes Diagnostic Testing: Clinical Impression(s) from Imaging Studies Chest X-Ray 03/06/22 20:24 IMPRESSION: No acute cardiopulmonary disease or interval change. Electronically Signed: Arthur Zamora DO at 20:57 EDT Reading Location ID and State: [address] [place] [address] Tel [phone], Service support , Chest x-ray, portable, single view shows no acute abnormality. Rhythm Strip Rhythm Strip: Accelerated junctional rhythm Rate: 120 Ectopy: None EKG Initial EKG: Attestation: I personally reviewed and interpreted this EKG as follows: Comments: Accelerated junctional rhythm rate of 120. No acute signs of GA. This is new from prior EKG from September 2017. Prior EKG tracings: available for review Prior: Changed Discharge Plan Triage Chief Complaint: Shortness of Breath ED Provider: Tae Holt Dx/Rx/DC Orders Clinical Impression: Hypoxia, Chronic kidney disease, Acute dyspnea, Accelerated junctional rhythm, History of diabetes mellitus Prescriptions: No Action polysaccharide iron complex [Ferrex 150] 150 mg iron capsule 150 mg PO DAILY Rx Instructions: avoid dairy/calcium-containing products and/or antacids for at least 2 hrs before and after dose amlodipine 2.5 mg tablet 2.5 mg PO DAILY fluticasone propionate [Allergy Relief (fluticasone)] 50 mcg/actuation spray,suspension 2 spray intranasal DAILY Rx Instructions: administer into each nostril (DME) handicap placcard See Rx Instructions .Route .MEDSUPPLY Qty: 1 0RF Rx Instructions: dx: Debility Lifetime metformin 500 mg tablet extended release 24 hr 500 mg PO DAILY Label Comments: TAKE 2 TABLETS BY MOUTH EVERY DAY losartan 50 mg tablet 50 mg PO DAILY carvedilol 3.125 mg tablet 1.5625 mg PO BID glipizide 5 mg tablet extended release 24hr 5 mg PO DAILY Label Comments: take 1 tablet by mouth every morning ascorbic acid (vitamin C) [Vitamin C] 500 mg Tablet 500 mg PO DAILY Spectravite Multivitamin 14-200-90 mg-mcg-mg Tablet 1 tab PO DAILY Primary Care Provider: Dusty Almanza Referrals: Dusty Almanza MD [Primary Care Provider] - Disposition Disposition: Acute Care Hospital [facility]
[2022-03-06] MEDS: Ipratropium/Albuterol Sulfate 3 ML AMPUL.NEB INHALATION (19:27)
[2022-03-06 19:48] LABS: Absolute Lymphocyte Count 0.94 X10^3/uL (0.83-4.51); Basophil# 0.01 X10^3/uL; Basophil% 0.1 % (0-1); Eosinophil# 0.02 X10^3/uL; Eosinophils% 0.2 % (0-5); Hematocrit 35.5 % (40-54); Hemoglobin 11.4 g/dL (13.0-16.5); Lymphocyte # 0.94 X10^3/ul (0.83-4.51); Lymphocyte % 9.1 % (19-41); Mean Corp Hgb Conc 32.1 g/dL (32-36); Mean Corpuscular Hgb 35.5 pg (27.0-32.0); Mean Corpuscular Volume 110.6 fL (80-94); Mean Platelet Vol. 11.4 fl (6.2-12.0); Monocyte% 21.4 % (0-10); NRBC Flagged by Analyzer 0.2 % (0-5); Neutrophil % 68.1 % (47-70); POSITIVE DIFFERENTIAL YES; Platelet Count 150 K/mm3 (150-450); RBC Distribution Width CV 15.2 % (11.6-14.6); RBC Distribution Width SD 62.1 fl (35.1-43.9); Red Blood Count 3.21 M/mm3 (4.6-6.2); White Blood Count 10.3 K/mm3 (4.4-11.0)
[2022-03-06 20:03] LABS: Differential Indicated SCAN CRITERIA MET
[2022-03-06 20:04] LABS: Anion Gap 10 (5-15); BUN 42 mg/dL (7-18); Calcium,Total 9.7 mg/dL (8.5-10.1); Chloride 108 mmol/L (98-107); EST Glomerular Filtration Rate 33 mL/min (>60); Est Glom Filt Rate - Afr Amer 39 mL/min (>60); Estimated Creatinine Clearance 23.88 ml/min; Glucose 281 mg/dL (74-106); Potassium 4.9 mmol/L (3.5-5.1); Sodium Level 140 mmol/L (136-145); Troponin-I HS (w/2H Reflex) 32 pg/mL (3.0-78.0)
[2022-03-06 20:05] LABS: International Normalized Ratio 1.2; Prothrombin Time (Protime)PT. 15.3 SECONDS (11.7-14.9)
[2022-03-06 20:19] LABS: Differential Comment SCANNED
--- NOTE | 2022-03-06 20:24 | RAD_ITS ---
STUDY: X-RAY CHEST REASON FOR EXAM: Male, 81 years old. Chest pain. Shortness of breath and cough for one and half weeks. TECHNIQUE: Single AP portable view of the chest. COMPARISON: 02/02/2022. FINDINGS: The lungs are hyperexpanded. There is no new mass or infiltrate. No pneumothorax. There is no demonstrated pleural abnormality. Again seen is evidence of prior cardiac surgery. The heart is normal in size. Normal mediastinum and chris. Normal visualized pulmonary arteries. Normal visualized aortic arch and descending thoracic aorta. Normal visualized thoracic spine. There is degenerative osteoarthritis of the bilateral shoulders. There is no demonstrated abnormality of the visualized soft tissue structures of the upper abdomen. RAD/Chest 1 View (Portable) IMPRESSION: No acute cardiopulmonary disease or interval change. Electronically Signed: Arthur Zamora DO at 20:57 EDT ,
[2022-03-06 20:34] LABS: BNP,B-Type NATRIURETIC PEPTIDE 79.3 pg/mL (0-100)
[2022-03-06 21:45] LABS: Reflex Troponin-HS? (from REC) Y
--- NOTE | 2022-03-06 21:55 | CT_ITS ---
EXAM: CT chest without IV contrast. HISTORY: cough and hypoxia TECHNIQUE: No intravenous contrast. Coronal and sagittal reconstructions were obtained. A radiation dose optimization technique was used for this scan. COMPARISON: None. LIMITATIONS: Motion artifact. LUNGS: Mild opacity in the left upper lobe. Smaller groundglass opacities in the right upper and bilateral lower lobes. Mild bibasilar atelectasis. HEART: Borderline enlarged. Coronary artery calcifications. PLEURA: Normal. AORTA: Moderate atherosclerotic calcification of the thoracic aorta. 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 MEDIASTINUM: Mediastinal lymph nodes are mildly enlarged. ESOPHAGUS: Small to moderate hiatal hernia. UPPER ABDOMEN: No significant abnormality. BONES/SOFT TISSUES: No acute fracture. OTHER: None. CONCLUSION: Small opacity in the left upper lobe is nonspecific, but could represent mild infection. 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 Mild to moderate hiatal hernia. Electronically Signed: Rafa Zavala MD at 22:48 EDT , CT/Chest without Contrast IMPRESSION: undefined
--- NOTE | 2022-03-06 22:29 | PCM.HP.STD ---
Documented by User: JAMILA Sequeira 03/06/22 22:48 HPI - General General Date of Admission: 03/06/22 Date of Service: 03/06/22 Chief Complaint: Shortness of Breath HPI Narrative GILBERTO DE LEÓN, is a 81 M who presents with a 1 week history of shortness of breath and cough. Patient states that he has a dry nonproductive cough. Patient reports medical history that includes chronic combined heart failure, diabetes mellitus type 2, CKD stage III, bioprosthetic aortic valve, hypertension, obstructive sleep apnea. Patient is hard of hearing and a poor historian. Patient's at bedside able to answer questions regarding medical history and surgical procedures. 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 Metabolic encephalopathy Mitral valve insufficiency Nonrheumatic aortic valve stenosis Nonrheumatic aortic valve stenosis with insufficiency Type 2 diabetes mellitus with hyperglycemia Home Medications polysaccharide iron complex 150 mg iron capsule (Ferrex) 150 mg PO DAILY 06/02/19 [History Last Taken 03/05/22] amlodipine 2.5 mg tablet 2.5 mg PO DAILY blood pressure 06/24/20 [History Last Taken 03/06/22] fluticasone propionate 50 mcg/actuation nasal spray,suspension (Allergy Relief (fluticasone)) 2 spray intranasal DAILY allergies 04/06/21 [History Last Taken 03/06/22] handicap placcard #1 ea 10/05/21 [Rx Last Taken Unknown] ascorbic acid (vitamin C) 500 mg tablet (Vitamin C) 500 mg PO DAILY supplement 03/06/22 [History Last Taken 03/05/22] carvedilol 3.125 mg tablet 1.5625 mg PO BID blood pressure 03/06/22 [History Last Taken 03/06/22] glipizide 5 mg tablet, extended release 24 hr 5 mg PO DAILY 03/06/22 [History Last Taken 03/06/22] losartan 50 mg tablet 50 mg PO DAILY blood pressure 03/06/22 [History Last Taken 03/06/22] metformin 500 mg tablet,extended release 24 hr 500 mg PO DAILY dm 03/06/22 [History Last Taken 03/06/22] multivit,Ca,min-iron fum-folic acid-bacill 14 mg-200 mcg-90 mg tablet 1 tab PO DAILY health maintenance 03/06/22 [History Last Taken 03/05/22] Allergy/AdvReac Type Severity Reaction Status Date / Time No Known Allergies Allergy Verified 03/06/22 18:15 Family History Mother Hypertension Father Hypertension Surgical History History of adenoidectomy History of aortic valve replacement with bioprosthetic valve (~07/04/17) History of left heart catheterization (~04/2017) History of tonsillectomy Hx of cholecystectomy S/P mitral valve repair (07/04/17) Social History Smoking Status: Never smoker alcohol intake: never substance use type: does not use caffeine: Yes Type: coffee Number of servings: 2 what type of physical activity do you participate in: other details: PT frequency: daily duration: 15-30 minutes/day seatbelt use: always do you feel safe at home: Yes ROS Constitutional Constitutional: Reports chills, fatigue, fever(s) and malaise; Denies anorexia or weakness Cardiovascular Cardiovascular: Denies chest pain, edema, palpitations or syncope Respiratory/Chest Respiratory/Chest: Reports cough, shortness of breath at rest and shortness of breath with exertion Gastrointestinal Gastrointestinal: Denies abdominal pain, constipation, diarrhea, nausea or vomiting Genitourinary Genitourinary: Denies dysuria Musculoskeletal Musculoskeletal: Denies back pain, extremity pain or joint pain Integumentary Integumentary: Denies dry skin Neurologic Neurologic: Denies abnormal gait, abnormal speech, confusion or dizziness Psychiatric Psychiatric: Denies anxiety or depression Endocrine Endocrinology: Denies change in body appearance Hematologic/Lymphatic Hematologic/Lymphatic: Reports anemia Vital Signs Vital Signs Vital Signs: 03/06/22 18:13 03/06/22 18:15 03/06/22 18:42 Temperature 99 F Temperature Source Temporal Pulse Rate 124 H 120 H Respiratory Rate 30 H 28 H Respiratory Effort Respiratory Depth Respiratory Pattern Blood Pressure 131/86 H 117/69 Blood Pressure Mean 101 85 Pulse Ox 84 93 96 Oxygen Delivery Method Room Air Nasal Cannula Nasal Cannula Oxygen Flow Rate (L/min) 3 6 03/06/22 18:51 03/06/22 19:18 03/06/22 19:18 Temperature Temperature Source Pulse Rate 120 H Respiratory Rate 30 H Respiratory Effort Short of Breath Labored Respiratory Depth Respiratory Pattern Tachypnea Blood Pressure 118/100 H Blood Pressure Mean 106 Pulse Ox 91 91 Oxygen Delivery Method Nasal Cannula Nasal Cannula Nasal Cannula Oxygen Flow Rate (L/min) 6 6 6 03/06/22 19:27 03/06/22 19:27 03/06/22 20:11 Temperature Temperature Source Pulse Rate 123 H 120 H Respiratory Rate 28 H 32 H 26 H Respiratory Effort Short of Breath Labored Accessory Muscle Use Respiratory Depth Shallow Respiratory Pattern Tachypnea Tachypnea Blood Pressure 82/61 L Blood Pressure Mean 68 Pulse Ox 96 98 Oxygen Delivery Method Nasal Cannula Nasal Cannula Oxygen Flow Rate (L/min) 6 6 03/06/22 20:42 03/06/22 21:04 03/06/22 22:14 Temperature Temperature Source Pulse Rate 115 H 119 H 105 H Respiratory Rate 26 H 32 H 24 H Respiratory Effort Respiratory Depth Respiratory Pattern Blood Pressure 97/67 95/67 90/66 Blood Pressure Mean 77 76 74 Pulse Ox 97 96 98 Oxygen Delivery Method Nasal Cannula Nasal Cannula Nasal Cannula Oxygen Flow Rate (L/min) 6 6 6 03/06/22 22:16 Temperature 97.5 F L Temperature Source Oral Pulse Rate 105 H Respiratory Rate 28 H Respiratory Effort Respiratory Depth Respiratory Pattern Blood Pressure 90/66 Blood Pressure Mean 74 Pulse Ox 98 Oxygen Delivery Method Nasal Cannula Oxygen Flow Rate (L/min) 6 Weight Weight: 160 lb Body Mass Index (BMI) 27.4 Physical Exam Const alert, oriented x3 and no apparent distress General Appearance: cooperative HEENT normocephalic and head/scalp atraumatic HEENT Narrative: [place] Eyes conjunctivae normal and no scleral icterus Neck no lymphadenopathy and supple General: trachea midline Resp normal respiratory effort, normal air movement and clear to auscultation bilaterally Effort and Inspection: tachypneic Cardio regular rate, regular rhythm, S1 normal heart sound, S2 normal heart sound and peripheral pulses 2+ throughout Rate: tachycardic GI normal to inspection, nondistended, normoactive bowel sounds, soft to palpation and non-tender Extremity normal capillary refill and no clubbing, cyanosis or edema Skin General Skin Exam: no breakdown Lesions: no lesions Rashes: no rashes Neuro no focal motor deficits and no sensory deficits noted Speech: speech normal Psych thought process normal and cooperative Appearance: appropriate Results Lab / Micro Data Result Diagrams: 03/07/22 01:55 03/07/22 01:55 Labs: Laboratory Results - last 24 hr 03/06/22 19:40: WBC 10.3, RBC 3.21 L, Hgb 11.4 L, Hct 35.5 L, MCV 110.6 H, MCH 35.5 H, MCHC 32.1, RDW Std Deviation 62.1 H, RDW Coeff of Merry 15.2 H, Plt Count 150, MPV 11.4, Immature Gran % (Auto) 1.100 H, Neut % (Auto) 68.1, Lymph % (Auto) 9.1 L, [place] % (Auto) 21.4 H, Eos % (Auto) 0.2, Baso % (Auto) 0.1, Absolute Neuts (auto) 7.0, Absolute Lymphs (auto) 0.94, Nucleated RBC % 0.2, Differential Comment SCANNED 03/06/22 19:40: Sodium 140, Potassium 4.9, Chloride 108 H, Carbon Dioxide 22.0, Anion Gap 10, BUN 42 H, Creatinine 2.10 H, Estim Creat Clear Calc 23.88, Est GFR (MDRD) Af Amer 39 L, Est GFR (MDRD) Non-Af 33 L, BUN/Creatinine Ratio 20.0, Glucose 281 H, Calcium 9.7, Troponin I High Sens 32 03/06/22 19:40: PT 15.3 H, INR 1.2, APTT 33.0 03/06/22 19:40: B-Natriuretic Peptide 79.3 Micro: Microbiology 03/06/22 19:24 Nasal Secretion SARS-CoV-2 Antigen (Rapid) - Final Rhythm Strip Rhythm Strip: Accelerated junctional rhythm Rate: 120 Ectopy: None Radiology Impression Chest X-Ray 03/06/22 20:24 IMPRESSION: No acute cardiopulmonary disease or interval change. Electronically Signed: Arthur Zamora DO at 20:57 EDT Reading Location ID and State: [address] [place] [address] Tel [phone], Service support , Assessment & Plan Assessment/Plan (1) Hypoxia: PLAN: Plan 1. Acute hypoxic respiratory failure secondary to probable pneumonia -Admit to PCU -Chest X ray negative, CT pending -Patient initiated on IV Levaquin -Rapid COVID-negative, COVID PCR and respiratory panel pending -Encourage incentive spirometry -CBC and BMP ordered daily -PT and OT to eval and treat -Scheduled Mucinex with as needed Robitussin -As needed Tylenol ordered for fever -We will repeat chest x-ray in a.m. 2. Accelerated junctional rhythm -Trend cardiac enzymes, first negative -EKG in a.m. 3. Hypertension -Patient currently hypotensive, hold antihypertensives -Vital signs per protocol 4. Diabetes mellitus type 2 -Hold oral diabetic medications at this time -ACH S blood sugars with sliding scale insulin ordered -Cardiac calorie controlled diet ordered 5. Chronic kidney disease stage III -Creatinine 2.10 baseline 1.71-1.85 -Daily BMP 6. Chronic combined systolic and diastolic congestive heart failure -BNP 79.3 -Patient has no swelling in his bilateral lower extremities, clear lung sounds 7. Chronic anemia -Hemoglobin 11.4, consistent with baseline -Continue p.o. iron supplementation -CBC daily DVT prophylaxis-subcu heparin This patient was seen by JAMILA Sequeira under the supervision of Dr. Kolb. 31 minutes spent in clinical coordination of patient's plan of care. Documented by User: Dr. Romel Kolb MD 03/07/22 03:12 HPI - General General Date of Admission: 03/06/22 [facility] Medical History Acute on chronic combined systolic (congestive) and diastolic (congestive) heart failure Acute respiratory failure with hypercapnia Cardiomyopathy in disease classified elsewhere Chronic kidney disease CKD stage 3 due to type 2 diabetes mellitus Critical aortic valve stenosis Diabetes mellitus Hypertension alf current use of anticoagulant Metabolic encephalopathy Mitral valve insufficiency Nonrheumatic aortic valve stenosis Nonrheumatic aortic valve stenosis with insufficiency Type 2 diabetes mellitus with hyperglycemia Home Medications polysaccharide iron complex 150 mg iron capsule (Ferrex) 150 mg PO DAILY 06/02/19 [History Last Taken 03/05/22] amlodipine 2.5 mg tablet 2.5 mg PO DAILY blood pressure 06/24/20 [History Last Taken 03/06/22] fluticasone propionate 50 mcg/actuation nasal spray,suspension (Allergy Relief (fluticasone)) 2 spray intranasal DAILY allergies 04/06/21 [History Last Taken 03/06/22] handicap placcard #1 ea 10/05/21 [Rx Last Taken Unknown] ascorbic acid (vitamin C) 500 mg tablet (Vitamin C) 500 mg PO DAILY supplement 03/06/22 [History Last Taken 03/05/22] carvedilol 3.125 mg tablet 1.5625 mg PO BID blood pressure 03/06/22 [History Last Taken 03/06/22] glipizide 5 mg tablet, extended release 24 hr 5 mg PO DAILY 03/06/22 [History Last Taken 03/06/22] losartan 50 mg tablet 50 mg PO DAILY blood pressure 03/06/22 [History Last Taken 03/06/22] metformin 500 mg tablet,extended release 24 hr 500 mg PO DAILY dm 03/06/22 [History Last Taken 03/06/22] multivit,Ca,min-iron fum-folic acid-bacill 14 mg-200 mcg-90 mg tablet 1 tab PO DAILY health maintenance 03/06/22 [History Last Taken 03/05/22] Allergy/AdvReac Type Severity Reaction Status Date / Time No Known Allergies Allergy Verified 03/06/22 18:15 Family History Mother Hypertension Father Hypertension Surgical History History of adenoidectomy History of aortic valve replacement with bioprosthetic valve (~07/04/17) History of left heart catheterization (~04/2017) History of tonsillectomy Hx of cholecystectomy S/P mitral valve repair (07/04/17) Social History Smoking Status: Never smoker alcohol intake: never substance use type: does not use caffeine: Yes Type: coffee Number of servings: 2 what type of physical activity do you participate in: other details: PT frequency: daily duration: 15-30 minutes/day seatbelt use: always do you feel safe at home: Yes Results Lab / Micro Data Result Diagrams: 03/07/22 01:55 03/07/22 01:55 Assessment & Plan Assessment/Plan (1) Hypoxia: Charges/Coding Addendum Addendum: Patient seen and examined independently by myself and agree with above assessment and plan.
[2022-03-06 22:52] LABS: Troponin-I HS 86 pg/mL (3.0-78.0)
[2022-03-07] VITALS (24 sets, daily range): BP systolic 91–110; BP diastolic 61–81; PULSE 74–114; RESP 14–24; TEMP 36.2–36.8; O2SAT 87–100
[2022-03-07] MEDS: levoFLOXacin IV 750 MG/150 ML BAG 100 MG IV (01:10)
[2022-03-07] MEDS: 0.9% Saline Lock 10 ML Syringe IV (01:15)
[2022-03-07 02:04] LABS: Absolute Lymphocyte Count 1.59 X10^3/uL (0.83-4.51); Absolute Neutrophil Count 10.6 X10^3/uL (2.0-7.7); Basophil# 0.01 X10^3/uL; Basophil% 0.1 % (0-1); Hemoglobin 10.7 g/dL (13.0-16.5); Lymphocyte # 1.59 X10^3/ul (0.83-4.51); Lymphocyte % 10.2 % (19-41); Mean Corp Hgb Conc 32.4 g/dL (32-36); Mean Corpuscular Hgb 36.1 pg (27.0-32.0); Mean Corpuscular Volume 111.5 fL (80-94); Mean Platelet Vol. 11.1 fl (6.2-12.0); Monocyte# 3.26 X10^3/uL; Monocyte% 20.9 % (0-10); NRBC Flagged by Analyzer 0.2 % (0-5); Neutrophil # 10.62 X10^3/uL (2.7-7.7); Neutrophil % 67.8 % (47-70); POSITIVE DIFFERENTIAL YES; Platelet Count 134 K/mm3 (150-450); RBC Distribution Width CV 15.5 % (11.6-14.6); RBC Distribution Width SD 62.7 fl (35.1-43.9); Red Blood Count 2.96 M/mm3 (4.6-6.2); White Blood Count 15.6 K/mm3 (4.4-11.0)
[2022-03-07 02:06] LABS: Differential Indicated SCAN CRITERIA MET
[2022-03-07] MEDS: Ipratropium/Albuterol Sulfate 3 ML AMPUL.NEB INHALATION ×6 (02:09→23:18)
[2022-03-07 02:25] LABS: Anion Gap 10 (5-15); BUN 46 mg/dL (7-18); BUN/Creat Ratio 20.7 RATIO (10-20); Chloride 111 mmol/L (98-107); Creatinine, Serum 2.22 mg/dL (0.70-1.30); EST Glomerular Filtration Rate 31 mL/min (>60); Est Glom Filt Rate - Afr Amer 37 mL/min (>60); Estimated Creatinine Clearance 22.59 ml/min; Glucose 291 mg/dL (74-106); Potassium 4.5 mmol/L (3.5-5.1); Sodium Level 140 mmol/L (136-145)
[2022-03-07 02:54] LABS: Anisocytosis 1+; Macrocytosis 2+; Platelet Estimate SLT DEC (ADEQ)
[2022-03-07 02:55] LABS: Atypical Lymphocyte 1+ %
[2022-03-07 03:03] LABS: Troponin-I HS 128 pg/mL (3.0-78.0)
--- NOTE | 2022-03-07 05:55 | RAD_ITS ---
INDICATION: hypoxia EXAMINATION: Frontal view of the chest COMPARISON: Chest x-ray and chest CT from the previous day. FINDINGS: Frontal view of the chest was obtained. The cardiac silhouette is not enlarged. Left atrial appendage closure device as well as a prosthetic heart valve. Small faint opacity in the left mid lung is similar to the prior chest x-ray and CT. No pneumothorax. RAD/Chest 1 View (Portable) IMPRESSION: Small faint opacity in the left mid lung is nonspecific, but may represent mild infection as described in the chest CT report. Electronically Signed: Rafa Zavala MD at 5:28 EDT ,
[2022-03-07] MEDS: Insulin Lispro 100 UNIT/ML INSULN.PEN SC ×4 (06:32→21:13)
[2022-03-07 06:51] LABS: Bedside Glucose 168 mg/dL (74-106)
[2022-03-07 07:05] LABS: Troponin-I HS 153 pg/mL (3.0-78.0)
[2022-03-07 09:54] LABS: Troponin-I HS 144 pg/mL (3.0-78.0)
[2022-03-07] MEDS: Iron Polysaccharide Complex 150 MG CAPSULE PO (09:54)
[2022-03-07] MEDS: Heparin Injection (Vial) 5,000 UNIT/ML VIAL 5000 UNIT SC ×2 (09:54→21:06)
--- NOTE | 2022-03-07 10:19 | PCM.PN.HOSP ---
Subjective Subjective DOS 03/07/22 CC: SOB Mr. Sommers is a 81 y/o male w/ a hx of combined chronic heart failure, DMII, ZEYNEP, and CKDIII who presented to [facility] 03/06 with 1 week of non productive cough and SOB. This am he reports continued SOB but feels it is improving slowly. Does continue to have a dry cough. Currently on 3L o2, down from 4L with improving sats. He endorses nasal congestion but endorses allergies as the likely cause. Denies CP, denies PAN or changes in vision, denies bowel or bladder complaints, eating well, no abdominal pain. No other complaints at this time. Objective Data Objective Data Vital Signs: Vital Signs Temp Pulse Resp BP Pulse Ox O2 Del Method O2 Flow Rate 97.5 F L 87 18 95/70 100 Nasal Cannula 3 03/07/22 08:50 03/07/22 08:50 03/07/22 08:50 03/07/22 08:50 03/07/22 08:50 03/07/22 08:50 03/07/22 08:50 Oxygen Flow Rate (L/min) 3 Oxygen Delivery Method Nasal Cannula Weight: 72 kg Body Mass Index (BMI) 27.2 Intake & Output: Intake and Output for Last 24 Hours 03/05/22 03/06/22 03/07/22 23:59 23:59 23:59 Intake Total 500 / 740 630 / 630 Balance 500 / 740 630 / 630 Lab / Micro Data Result Diagrams: 03/07/22 01:55 03/07/22 01:55 Labs: Laboratory Results - last 24 hr 03/06/22 19:40: WBC 10.3, RBC 3.21 L, Hgb 11.4 L, Hct 35.5 L, MCV 110.6 H, MCH 35.5 H, MCHC 32.1, RDW Std Deviation 62.1 H, RDW Coeff of Merry 15.2 H, Plt Count 150, MPV 11.4, Immature Gran % (Auto) 1.100 H, Neut % (Auto) 68.1, Lymph % (Auto) 9.1 L, [place] % (Auto) 21.4 H, Eos % (Auto) 0.2, Baso % (Auto) 0.1, Absolute Neuts (auto) 7.0, Absolute Lymphs (auto) 0.94, Nucleated RBC % 0.2, Differential Comment SCANNED 03/06/22 19:40: Sodium 140, Potassium 4.9, Chloride 108 H, Carbon Dioxide 22.0, Anion Gap 10, BUN 42 H, Creatinine 2.10 H, Estim Creat Clear Calc 23.88, Est GFR (MDRD) Af Amer 39 L, Est GFR (MDRD) Non-Af 33 L, BUN/Creatinine Ratio 20.0, Glucose 281 H, Calcium 9.7, Troponin I High Sens 32 03/06/22 19:40: PT 15.3 H, INR 1.2, APTT 33.0 03/06/22 19:40: B-Natriuretic Peptide 79.3 03/06/22 22:08: COVID-19 (SHANEKA) Not Detected 03/06/22 22:29: Troponin I High Sens 86 H 03/07/22 01:55: WBC 15.6 H, RBC 2.96 L, Hgb 10.7 L, Hct 33.0 L, MCV 111.5 H, MCH 36.1 H, MCHC 32.4, RDW Std Deviation 62.7 H, RDW Coeff of Merry 15.5 H, Plt Count 134 L, MPV 11.1, Immature Gran % (Auto) 1.000 H, Neut % (Auto) 67.8, Lymph % (Auto) 10.2 L, [place] % (Auto) 20.9 H, Eos % (Auto) 0.0, Baso % (Auto) 0.1, Absolute Neuts (auto) 10.6 H, Absolute Lymphs (auto) 1.59, Nucleated RBC % 0.2, Diff Path Review May foll, Atypical Lymphocytes 1+, Platelet Estimate SLT DEC, Anisocytosis 1+, Macrocytosis 2+ 03/07/22 01:55: Sodium 140, Potassium 4.5, Chloride 111 H, Carbon Dioxide 19.0 L, Anion Gap 10, BUN 46 H, Creatinine 2.22 H, Estim Creat Clear Calc 22.59, Est GFR (MDRD) Af Amer 37 L, Est GFR (MDRD) Non-Af 31 L, BUN/Creatinine Ratio 20.7 H, Glucose 291 H, Calcium 9.0 03/07/22 01:55: Troponin I High Sens 128 H* 03/07/22 06:15: Troponin I High Sens 153 H* 03/07/22 06:23: POC Glucose 168 H 03/07/22 09:10: Troponin I High Sens 144 H* Micro: Microbiology 03/07/22 02:00 Mucosa - Nasopharyngeal Respiratory Panel (PCR) - Final 03/06/22 19:24 Nasal Secretion SARS-CoV-2 Antigen (Rapid) - Final Radiography Diagnostic Testing: Radiology Impression Chest X-Ray 03/06/22 20:24 IMPRESSION: No acute cardiopulmonary disease or interval change. Electronically Signed: Arthur Zamora DO at 20:57 EDT Reading Location ID and State: [facility] / [place] Tel [phone], Service support , Chest CT 03/06/22 21:55 IMPRESSION: undefined Chest X-Ray 03/07/22 05:55 IMPRESSION: Small faint opacity in the left mid lung is nonspecific, but may represent mild infection as described in the chest CT report. Electronically Signed: Rafa Zavala MD at 5:28 EDT , Rhythm Strip Rhythm Strip: Accelerated junctional rhythm Rate: 120 Ectopy: None Physical Exam Const alert and oriented x3 HEENT HEENT Narrative: [place] Eyes Eyes Narrative: EOM grossly intact Neck supple Resp Resp Narrative: Slightly coarse throughout, diminished airflow at the bases Cardio regular rate and regular rhythm GI soft to palpation, non-tender and non-distended Extremity Extremity Narrative: No edema appreciated Neuro Neuro Narrative: Alert and oriented, moving all extremities Psych Psych Narrative: Attempts to be cooperative but has difficulty d/t [place] Assessment & Plan Assessment/Plan (1) Hypoxia: PLAN: Plan Acute hypoxic respiratory failure secondary to probable pneumonia -O2 sat in mid 80's off O2 in ER, currently on 3L with Sats from low 90's to 100 Will wean as tolerated -CT chest 03/06 concerning for small opacity in [place], cxr this AM consistent with that- images reviewed and consistent with [place] pneumonia -Patient initiated on IV Levaquin 03/06 -Rapid COVID-negative, COVID PCR negative -Encourage incentive spirometry -PT and OT to eval and treat -Scheduled Mucinex with as needed Robitussin -As needed Tylenol ordered for fever Community acquired pneumonia CURB 65 3 on admission- appropriate for inpatient treatment Currently O2 dependent No known mrsa or pseudomonas risk factors On Levaquin 03/06 Pt beginning to improve, will likely treat for 5 days pending further improvement Will transition to PO when appropriate Duonebs PT consult, early ambulation Continue to wean O2, may need walk test prior to d/c, will monitor closely NSTEMI Type II Trop initially 32->86->128->153->now down trending to 144 EKG on admission concerning for accelerated junctional rhythm and HR was low 100's Reported on admission Did have borderline BPs during admission and no chest pain, SOB explained by [place] pneumonia and symptoms have improved with treatment of the pneumonia/underlying condition Will repeat an EKG and monitor for symptoms Last cardiac cath 05/2017 with normal coronary arteries, appears to be established with cardiology Follow up on d/c Hypertension -Patient currently w/ borderline BP, hold antihypertensives -Vital signs per protocol Diabetes mellitus type 2, controlled A1c 6.3 10/10/21 -Hold oral diabetic medications at this time -ACH S blood sugars with sliding scale insulin ordered -Cardiac calorie controlled diet ordered CHRIST on Chronic kidney disease stage III Baseline appears to be 1.7/1.8 and Cr currently 2.2 Will obtain urine studies -Daily BMP Chronic combined systolic and diastolic congestive heart failure Per documentation, following with cardiology as outpt Appears to have recovered EF, however, with echo 09/02/21 demonstrating EF of 50% but does note diastolic dysfunction -BNP 79.3 -Patient has no swelling in his bilateral lower extremities, do not feel fluid overload is the cause of current symptoms. Chronic macrocytic anemia -Hemoglobin 10-11, consistent with baseline MCV >100 consistently -Continue p.o. iron supplementation Most recent iron studies 02/2022 consistent with anemia of chronic disease but given MCV will check b12 and folate as these were last checked 2015 -CBC daily DVT prophylaxis-subcu heparin Daniela Altamirano MD 30 minutes spent in clinical coordination of patient's plan of care. Charges/Coding Visit Charges Inpatient E&M: 74192 Subs Hosp L1
--- NOTE | 2022-03-07 10:43 | EKG12_ITS ---
Test Reason : routine Blood Pressure : / mmHG Vent. Rate : 078 BPM Atrial Rate : 078 BPM P-R Int : 326 ms QRS Dur : 092 ms QT Int : 388 ms P-R-T Axes : 053 -31 020 degrees QTc Int : 442 ms Sinus rhythm with sinus arrhythmia with 1st degree A-V block Left axis deviation Poor R wave progression Abnormal ECG Confirmed by ISHMAEL CEDENO, ZAHRA ([id number]), purchasing expeditor KENDRA WIN ([id number]) on 03/08/2022 9:31:57 AM Referred By: Confirmed By:ZAHRA QUIÑONES MD
--- NOTE | 2022-03-07 11:15 | CASEMGMT ---
BENNY PALACIOS assessment: Face to Face with patient for initial transition planning/care coordination assessment. BENNY PALACIOS introduced self and role at [facility], pt voices understanding and consents to assessment. Pt is sitting up in bed in no distress on 3L nc. Pt is hard of hearing.? Care providers, pharmacy,?and demographics verified/updated. ? Presentation: Pt w/ SOB/cough for last 1.5week Admitting dx: Hypoxia PCP: Cami Specialists: Alexandriacardio Preferred Pharmacy: [facility] Insurance: [facility] Prescription Benefit:?HumR Living Will/HPOA: Pt has LW/HPOA and is aware that they are not on file at [facility]. Pt states his [id number], Susan Tse, is HPOA. LNOK: Rosa Sommers, ; Susan Tse, sis-in-law Living Arrangements: Pt lives with in 1 story home and states no concerns at home. Pt is independent with ADL's. Transportation: Pt drives self and states no transportation concerns. DME/HHC: Pt has a cane, walker, and grab bars. Pt states no need for any further DME. Pt states no preference for DME company, if qualifies for home oxygen at discharge. Pt states no hx of SNF in past but has had HHC. Pt states no concerns with going home at time of discharge. Pt is retired. Pt states does not smoke cigarettes or drink ETOH. Pt voices no further concerns/needs. CM to follow for any further discharge planning/needs. Advised pt to ask for CM if any further questions/concerns/needs arise, voices understanding. Pt Goal: Home Plan: Home, pending home oxygen testing. [place] BENNY PALACIOS
[2022-03-07 12:01] LABS: Bedside Glucose 151 mg/dL (74-106)
[2022-03-07 14:54] LABS: Urine Chloride 46 mmol/L (Not Establ.); Urine Sodium 42 mmol/L (Not Establ.)
[2022-03-07 16:56] LABS: Bedside Glucose 180 mg/dL (74-106)
[2022-03-07] MEDS: guaiFENesin 10 ML UDC (200MG/10ML) 20 ML PO (21:06)
[2022-03-07] MEDS: Carvedilol 3.125 MG TABLET 1.5625 MG PO (21:09)
[2022-03-07 22:25] LABS: Bedside Glucose 196 mg/dL (74-106)
[2022-03-08] VITALS (22 sets, daily range): BP systolic 103–122; BP diastolic 73–87; PULSE 78–115; RESP 18–20; TEMP 36.4–36.8; O2SAT 93–98
[2022-03-08] MEDS: guaiFENesin 10 ML UDC (200MG/10ML) 20 ML PO ×2 (02:32→21:11)
[2022-03-08 04:57] LABS: Absolute Lymphocyte Count 1.77 X10^3/uL (0.83-4.51); Absolute Neutrophil Count 7.4 X10^3/uL (2.0-7.7); Basophil# 0.02 X10^3/uL; Basophil% 0.2 % (0-1); Eosinophil# 0.04 X10^3/uL; Eosinophils% 0.3 % (0-5); Hematocrit 31.6 % (40-54); Hemoglobin 10.3 g/dL (13.0-16.5); Lymphocyte # 1.77 X10^3/ul (0.83-4.51); Lymphocyte % 15.2 % (19-41); Mean Corp Hgb Conc 32.6 g/dL (32-36); Mean Corpuscular Hgb 36.3 pg (27.0-32.0); Mean Corpuscular Volume 111.3 fL (80-94); Mean Platelet Vol. 11.1 fl (6.2-12.0); Monocyte% 18.9 % (0-10); NRBC Flagged by Analyzer 0.2 % (0-5); Neutrophil # 7.44 X10^3/uL (2.7-7.7); Neutrophil % 64.1 % (47-70); POSITIVE DIFFERENTIAL YES; Platelet Count 129 K/mm3 (150-450); RBC Distribution Width CV 15.4 % (11.6-14.6); RBC Distribution Width SD 63.4 fl (35.1-43.9); Red Blood Count 2.84 M/mm3 (4.6-6.2); White Blood Count 11.6 K/mm3 (4.4-11.0)
[2022-03-08 04:58] LABS: Differential Indicated SCAN CRITERIA MET
--- NOTE | 2022-03-08 05:55 | EKG12_ITS ---
Test Reason : MORNING EKG Blood Pressure : / mmHG Vent. Rate : 081 BPM Atrial Rate : 081 BPM P-R Int : 300 ms QRS Dur : 100 ms QT Int : 430 ms P-R-T Axes : 062 -34 -12 degrees QTc Int : 499 ms Sinus rhythm with 1st degree A-V block with Premature atrial complexes Left axis deviation T wave abnormality, consider anterior ischemia Prolonged QT Poor R wave progression Abnormal ECG Confirmed by ISHMAEL CEDENO, ZAHRA ([id number]), senior editor KENDRA WIN ([id number]) on 03/09/2022 7:56:19 AM Referred By: Confirmed By:ZAHRA QUIÑONES MD
[2022-03-08 06:23] LABS: Anisocytosis 1+; Macrocytosis 2+
[2022-03-08 06:24] LABS: Platelet Estimate SLT DEC (ADEQ)
[2022-03-08] MEDS: Insulin Lispro 100 UNIT/ML INSULN.PEN SC ×4 (06:46→20:58)
[2022-03-08] MEDS: Ipratropium/Albuterol Sulfate 3 ML AMPUL.NEB INHALATION ×5 (07:04→23:51)
[2022-03-08 07:07] LABS: ALB/GLOB Ratio 0.7 RATIO (0.9-2.4); AST(SGOT) 18 U/L (15-37); Alanine Aminotransfer ALT/SGPT 15 U/L (16-61); Alkaline Phosphatase 79 U/L (45-117); Anion Gap 8 (5-15); BUN 42 mg/dL (7-18); BUN/Creat Ratio 21.5 RATIO (10-20); Calcium,Total 8.8 mg/dL (8.5-10.1); Chloride 112 mmol/L (98-107); Creatinine, Serum 1.95 mg/dL (0.70-1.30); EST Glomerular Filtration Rate 35 mL/min (>60); Est Glom Filt Rate - Afr Amer 43 mL/min (>60); Estimated Creatinine Clearance 25.72 ml/min; Globulin 4.2 g/dL (2.2-4.2); Glucose 188 mg/dL (74-106); Potassium 4.1 mmol/L (3.5-5.1); Protein, Total 7.2 g/dL (6.4-8.2); Sodium Level 141 mmol/L (136-145)
[2022-03-08 07:15] LABS: Bedside Glucose 172 mg/dL (74-106)
[2022-03-08 08:06] LABS: Vitamin B12 892 pg/mL (211-911)
[2022-03-08] MEDS: Carvedilol 3.125 MG TABLET 1.5625 MG PO ×2 (08:40→21:02)
[2022-03-08] MEDS: Iron Polysaccharide Complex 150 MG CAPSULE PO (08:42)
[2022-03-08] MEDS: Heparin Injection (Vial) 5,000 UNIT/ML VIAL 5000 UNIT SC ×2 (08:43→20:59)
[2022-03-08 09:44] LABS: Pathologist Review Reviewed
--- NOTE | 2022-03-08 10:45 | PN.HOSP_ITS ---
Subjective Subjective DOS 03/08/22 CC: cough Mr. Sommers is a 81 y/o male w/ a hx of combined chronic heart failure, DMII, ZEYNEP, and CKDIII who presented to [facility] 03/06 with 1 week of non productive cough and SOB Mr. Sommers endorses continued SOB and cough today but feels he is still improving. Has not been up today but plans to try to get up and walk today with assistance. He was back on 3L O2 this AM. Appetite fair. Denies any chest pain o r palpitations. Denies fever, no headache, occasional stuffy nose, denies problems with bowel or bladder, denies swelling, no n/v Objective Data Objective Data Vital Signs: Vital Signs Temp Pulse Resp BP Pulse Ox O2 Del Method O2 Flow Rate 97.5 F L 87 20 H 115/76 98 Nasal Cannula 3 03/08/22 08:33 03/08/22 08:33 03/08/22 08:33 03/08/22 08:33 03/08/22 08:33 03/08/22 08:33 03/08/22 08:33 Oxygen Flow Rate (L/min) 3 Oxygen Delivery Method Nasal Cannula Weight: 72 kg Body Mass Index (BMI) 27.2 Intake & Output: Intake and Output for Last 24 Hours 03/06/22 03/07/22 03/08/22 23:59 23:59 23:59 Intake Total 500 / 740 1630 / 2029 800 / 800 Balance 500 / 740 163 / 2029 800 / 800 Lab / Micro Data Result Diagrams: 03/08/22 04:42 03/08/22 04:42 Labs: Laboratory Results - last 24 hr 03/07/22 01:55: Diff Path Review Reviewed 03/07/22 11:34: POC Glucose 151 H 03/07/22 14:30: Ur Random Sodium 42, Urine Creatinine 94.00, Urine Potassium 66.0, Urine Chloride 46 03/07/22 16:33: POC Glucose 180 H 03/07/22 21:12: POC Glucose 196 H 03/08/22 04:42: WBC 11.6 H, RBC 2.84 L, Hgb 10.3 L, Hct 31.6 L, MCV 111.3 H, MCH 36.3 H, MCHC 32.6, RDW Std Deviation 63.4 H, RDW Coeff of Merry 15.4 H, Plt Count 129 L, MPV 11.1, Immature Gran % (Auto) 1.300 H, Neut % (Auto) 64.1, Lymph % (Auto) 15.2 L, [place] % (Auto) 18.9 H, Eos % (Auto) 0.3, Baso % (Auto) 0.2, Absolute Neuts (auto) 7.4, Absolute Lymphs (auto) 1.77, Nucleated RBC % 0.2, Diff Path Review October, Platelet Estimate SLT DEC, Anisocytosis 1+, Macrocytosis 2+ 03/08/22 04:42: Sodium 141, Potassium 4.1, Chloride 112 H, Carbon Dioxide 21.0, Anion Gap 8, BUN 42 H, Creatinine 1.95 H, Estim Creat Clear Calc 25.72, Est GFR (MDRD) Af Amer 43 L, Est GFR (MDRD) Non-Af 35 L, BUN/Creatinine Ratio 21.5 H, Glucose 188 H, Calcium 8.8, Total Bilirubin 0.70, AST 18, ALT 15 L, Alkaline Phosphatase 79, Total Protein 7.2, Albumin 3.0 L, Globulin 4.2, Albumin/Globulin Ratio 0.7 L, Folate 37.60 03/08/22 04:42: Vitamin B12 892 03/08/22 06:44: POC Glucose 172 H Micro: Microbiology 03/07/22 02:00 Mucosa - Nasopharyngeal Respiratory Panel (PCR) - Final 03/06/22 19:24 Nasal Secretion SARS-CoV-2 Antigen (Rapid) - Final Rhythm Strip Rhythm Strip: Accelerated junctional rhythm Rate: 120 Ectopy: None Physical Exam Const alert, oriented x3 and no apparent distress General Appearance: cooperative HEENT normocephalic and head/scalp atraumatic Eyes conjunctivae normal and no scleral icterus Eyes Narrative: EOM grossly intact Neck no lymphadenopathy and supple Resp normal respiratory effort Resp Narrative: Slightly coarse throughout, diminished airflow at the bases Cardio regular rate and regular rhythm GI soft to palpation, non-tender and non-distended Extremity Extremity Narrative: No edema appreciated Neuro Neuro Narrative: Alert and oriented, moving all extremities Speech: speech normal Psych thought process normal and cooperative Psych Narrative: Attempts to be cooperative but has difficulty d/t [place] Appearance: appropriate Assessment & Plan Assessment/Plan (1) Hypoxia: PLAN: Plan 1. Acute hypoxic respiratory failure secondary to community acquired pneumonia -O2 sat in mid 80's off O2 in ER, currently on 3L with Sats from low 90's to 100, was down to 1L yesterday but back to 3L -CT chest 03/06 concerning for small opacity in [place], cxr this AM consistent with that- images reviewed and consistent with SALOME pneumonia -Patient initiated on IV Levaquin / -Rapid COVID-negative, COVID PCR negative -Encourage incentive spirometry -PT and OT to eval and treat -Scheduled Mucinex with as needed Robitussin -As needed Tylenol ordered for fever Community acquired pneumonia CURB 65 3 on admission- appropriate for inpatient treatment Currently O2 dependent No known mrsa or pseudomonas risk factors On Levaquin 10/3 Pt beginning to improve, further improvement today Given O2 requirement was increased today will monitor overnight, if doing well in the AM will preform walk test and consider temporary home O2 while further improving Sang PT consult, early ambulation NSTEMI Type II Trop initially 32->86->128->153->now down trending to 144 EKG on admission concerning for accelerated junctional rhythm and HR was low 100's Reported on admission Did have borderline BPs during admission and no chest pain, SOB explained by SALOME pneumonia and symptoms have improved with treatment of the pneumonia/underlying condition Last cardiac cath 05/2017 with normal coronary arteries, appears to be established with cardiology Follow up w/ cardiology on d/c Hypertension -Patient currently w/ borderline BP, hold antihypertensives -Vital signs per protocol Diabetes mellitus type 2, controlled A1c 6.3 10/10/21 -Hold oral diabetic medications at this time -ACH S blood sugars with sliding scale insulin ordered -Cardiac calorie controlled diet ordered CHRIST on Chronic kidney disease stage III- acute injury resolved Baseline appears to be 1.7/1.8, now back down to 1.95 Will obtain urine studies -Daily BMP Chronic combined systolic and diastolic congestive heart failure Per documentation, following with cardiology as outpt Appears to have recovered EF, however, with echo 09/02/21 demonstrating EF of 50% but does note diastolic dysfunction -BNP 79.3 -Patient has no swelling in his bilateral lower extremities, do not feel fluid overload is the cause of current symptoms. Chronic macrocytic anemia -Hemoglobin 10-11, consistent with baseline MCV >100 consistently -Continue p.o. iron supplementation Most recent iron studies 02/2022 consistent with anemia of chronic disease but given MCV will check b12 and folate as these were last checked 2016 -CBC daily DVT prophylaxis-subcu heparin Daniela Altamirano MD 30 minutes spent in clinical coordination of patient's plan of care.
[2022-03-08 11:46] LABS: Bedside Glucose 182 mg/dL (74-106)
[2022-03-08 12:58] LABS: Pathologist Review Reviewed
[2022-03-08 17:25] LABS: Bedside Glucose 236 mg/dL (74-106)
[2022-03-08] MEDS: Polyethylene Glycol 3350 17 GM PACKET PO (20:48)
[2022-03-08] MEDS: Senna Tablet 2 TABLET PO (21:02)
[2022-03-08] MEDS: 0.9% Saline Lock 10 ML Syringe IV (21:03)
[2022-03-08] MEDS: levoFLOXacin IV 750 MG/150 ML BAG 100 MG IV (21:04)
[2022-03-08 22:05] LABS: Bedside Glucose 166 mg/dL (74-106)
[2022-03-09] VITALS (16 sets, daily range): BP systolic 114–135; BP diastolic 75–89; PULSE 81–94; RESP 16–20; TEMP 36.4–36.8; O2SAT 85–98
[2022-03-09 06:14] LABS: Absolute Lymphocyte Count 1.51 X10^3/uL (0.83-4.51); Absolute Neutrophil Count 4.3 X10^3/uL (2.0-7.7); Basophil# 0.02 X10^3/uL; Basophil% 0.3 % (0-1); Eosinophil# 0.18 X10^3/uL; Eosinophils% 2.3 % (0-5); Hematocrit 33.2 % (40-54); Hemoglobin 11.1 g/dL (13.0-16.5); Lymphocyte # 1.51 X10^3/ul (0.83-4.51); Lymphocyte % 19.7 % (19-41); Mean Corp Hgb Conc 33.4 g/dL (32-36); Mean Corpuscular Hgb 36.3 pg (27.0-32.0); Mean Corpuscular Volume 108.5 fL (80-94); Mean Platelet Vol. 11.2 fl (6.2-12.0); Monocyte# 1.56 X10^3/uL; Monocyte% 20.4 % (0-10); NRBC Flagged by Analyzer 0.3 % (0-5); Neutrophil # 4.29 X10^3/uL (2.7-7.7); POSITIVE DIFFERENTIAL YES; Platelet Count 141 K/mm3 (150-450); RBC Distribution Width CV 15.1 % (11.6-14.6); RBC Distribution Width SD 60.5 fl (35.1-43.9); Red Blood Count 3.06 M/mm3 (4.6-6.2); White Blood Count 7.7 K/mm3 (4.4-11.0)
[2022-03-09 06:16] LABS: Differential Indicated SCAN CRITERIA MET
[2022-03-09] MEDS: Insulin Lispro 100 UNIT/ML INSULN.PEN SC ×2 (06:38→10:53)
[2022-03-09 06:40] LABS: ALB/GLOB Ratio 0.7 RATIO (0.9-2.4); AST(SGOT) 16 U/L (15-37); Alanine Aminotransfer ALT/SGPT 15 U/L (16-61); Alkaline Phosphatase 82 U/L (45-117); Anion Gap 9 (5-15); BUN 36 mg/dL (7-18); BUN/Creat Ratio 20.8 RATIO (10-20); Calcium,Total 8.5 mg/dL (8.5-10.1); Chloride 109 mmol/L (98-107); Creatinine, Serum 1.73 mg/dL (0.70-1.30); EST Glomerular Filtration Rate 41 mL/min (>60); Est Glom Filt Rate - Afr Amer 49 mL/min (>60); Estimated Creatinine Clearance 28.99 ml/min; Globulin 4.4 g/dL (2.2-4.2); Glucose 151 mg/dL (74-106); Potassium 4.1 mmol/L (3.5-5.1); Protein, Total 7.4 g/dL (6.4-8.2); Sodium Level 139 mmol/L (136-145)
[2022-03-09 06:47] LABS: Anisocytosis 1+; Macrocytosis 2+
[2022-03-09] MEDS: Ipratropium/Albuterol Sulfate 3 ML AMPUL.NEB INHALATION ×2 (06:48→11:05)
--- NOTE | 2022-03-09 06:56 | PCM.PN.HOSP ---
Subjective Subjective DOS 03/09/22 CC: SOB Mr. Sommers is a 81 y/o male w/ a hx of combined chronic heart failure, DMII, ZEYNEP, and CKDIII who presented to [facility] 03/06 with 1 week of non productive cough and SOB. He reports continued SOB but feels he is still getting better slowly. Had some cough overnight but feels he hasn't coughed as much since getting up. Did not sleep well. Eating fair, has not had BM. Denies headache or changes in vision, denies nasal congestion or sore throat. Denies palpitations, racing heart, or chest pain. Denies swelling, no problems with urination. Would like to go home today. Objective Data Objective Data Vital Signs: Vital Signs Temp Pulse Resp BP Pulse Ox O2 Del Method O2 Flow Rate 98.2 F 94 16 119/89 H 97 Nasal Cannula 2 03/09/22 02:35 03/09/22 06:51 03/09/22 06:51 03/09/22 02:35 03/09/22 06:51 03/09/22 06:51 03/09/22 06:51 Oxygen Flow Rate (L/min) 2 Oxygen Delivery Method Nasal Cannula Weight: 72 kg Body Mass Index (BMI) 27.2 Intake & Output: Intake and Output for Last 24 Hours 03/07/22 03/08/22 03/09/22 23:59 23:59 23:59 Intake Total 1629 1510 / 1510 230.5 / 230.5 Balance 1629 1510 / 1510 230.5 / 230.5 Lab / Micro Data Result Diagrams: 03/09/22 05:57 03/09/22 05:57 Labs: Laboratory Results - last 24 hr 03/07/22 01:55: Diff Path Review Reviewed 03/08/22 04:42: Diff Path Review Reviewed 03/08/22 04:42: Sodium 141, Potassium 4.1, Chloride 112 H, Carbon Dioxide 21.0, Anion Gap 8, BUN 42 H, Creatinine 1.95 H, Estim Creat Clear Calc 25.72, Est GFR (MDRD) Af Amer 43 L, Est GFR (MDRD) Non-Af 35 L, BUN/Creatinine Ratio 21.5 H, Glucose 188 H, Calcium 8.8, Total Bilirubin 0.70, AST 18, ALT 15 L, Alkaline Phosphatase 79, Total Protein 7.2, Albumin 3.0 L, Globulin 4.2, Albumin/Globulin Ratio 0.7 L, Folate 37.60 03/08/22 04:42: Vitamin B12 892 03/08/22 06:44: POC Glucose 172 H 03/08/22 11:19: POC Glucose 182 H 03/08/22 16:36: POC Glucose 236 H 03/08/22 20:57: POC Glucose 166 H 03/09/22 05:57: WBC 7.7, RBC 3.06 L, Hgb 11.1 L, Hct 33.2 L, MCV 108.5 H, MCH 36.3 H, MCHC 33.4, RDW Std Deviation 60.5 H, RDW Coeff of Merry 15.1 H, Plt Count 141 L, MPV 11.2, Immature Gran % (Auto) 1.300 H, Neut % (Auto) 56.0, Lymph % (Auto) 19.7, [place] % (Auto) 20.4 H, Eos % (Auto) 2.3, Baso % (Auto) 0.3, Absolute Neuts (auto) 4.3, Absolute Lymphs (auto) 1.51, Nucleated RBC % 0.3, Anisocytosis 1+, Macrocytosis 2+ 03/09/22 05:57: Sodium 139, Potassium 4.1, Chloride 109 H, Carbon Dioxide 21.0, Anion Gap 9, BUN 36 H, Creatinine 1.73 H, Estim Creat Clear Calc 28.99, Est GFR (MDRD) Af Amer 49 L, Est GFR (MDRD) Non-Af 41 L, BUN/Creatinine Ratio 20.8 H, Glucose 151 H, Calcium 8.5, Magnesium 2.0, Total Bilirubin 0.70, AST 16, ALT 15 L, Alkaline Phosphatase 82, Total Protein 7.4, Albumin 3.0 L, Globulin 4.4 H, Albumin/Globulin Ratio 0.7 L Micro: Microbiology 03/07/22 02:00 Mucosa - Nasopharyngeal Respiratory Panel (PCR) - Final 03/06/22 19:24 Nasal Secretion SARS-CoV-2 Antigen (Rapid) - Final Rhythm Strip Rhythm Strip: Accelerated junctional rhythm Rate: 120 Ectopy: None Physical Exam Const alert, oriented x3 and no apparent distress General Appearance: cooperative HEENT normocephalic and head/scalp atraumatic Eyes conjunctivae normal and no scleral icterus Eyes Narrative: EOM grossly intact Neck no lymphadenopathy and supple General: trachea midline Resp normal respiratory effort, normal air movement and clear to auscultation bilaterally Resp Narrative: diminished airflow at the bases Effort and Inspection: tachypneic Cardio regular rate, regular rhythm, S1 normal heart sound, S2 normal heart sound and peripheral pulses 2+ throughout Rate: tachycardic GI normal to inspection, nondistended, normoactive bowel sounds, soft to palpation, non-tender and non-distended Extremity normal capillary refill and no clubbing, cyanosis or edema Extremity Narrative: No edema appreciated Skin General Skin Exam: no breakdown Lesions: no lesions Rashes: no rashes Neuro no focal motor deficits and no sensory deficits noted Neuro Narrative: Alert and oriented, moving all extremities Speech: speech normal Psych thought process normal and cooperative Psych Narrative: Attempts to be cooperative but has difficulty d/t [place] Appearance: appropriate Assessment & Plan Assessment/Plan (1) Hypoxia: PLAN: Plan 1. Acute hypoxic respiratory failure secondary to community acquired pneumonia- improving -CT chest 03/06 concerning for small opacity in [place], cxr this AM consistent with that- images reviewed and consistent with SAL[place] pneumonia -O2 sat in mid 80's off O2 in ER, overnight O2 93 on 2L which improved to 97 on 2L this AM -Patient initiated on IV Levaquin 03/06. Given continued O2 need will treat with 7 days of levaquin at 750mg q48 hr dosing given calculated CrCl of 35. -Rapid COVID-negative, COVID PCR negative -Encourage incentive spirometry -Scheduled Mucinex with as needed Robitussin -As needed Tylenol ordered for fever Community acquired pneumonia CURB 65 3 on admission- appropriate for inpatient treatment Currently O2 dependent No known mrsa or pseudomonas risk factors On Levaquin 03/06, today D4 of abx, will treat for 7 given continued O2 requirement Pt improving will preform walk test and consider temporary home O2 while further improving Sang PT consult, early ambulation NSTEMI Type II Trop initially 32->86->128->153->now down trended to 144 EKG on admission concerning for accelerated junctional rhythm and HR was low 100's Did have borderline BPs during admission and no chest pain, SOB explained by SALOME pneumonia and symptoms have improved with treatment of the pneumonia/underlying condition Last cardiac cath 05/2017 with normal coronary arteries, appears to be established with cardiology Follow up w/ cardiology on d/c Hypertension BP improved on home coreg losartan continues to be held d/t kidney function not back to baseline Diabetes mellitus type 2, controlled A1c 6.3 10/10/21 -Hold oral diabetic medications at this time -ACH S blood sugars with sliding scale insulin ordered -Cardiac calorie controlled diet ordered Given kidney function not back to baseline will defer resumption of metformin to PCP after d/c Will hold glimepiride given A1c under goal at 6.3 and risk for hypoglycemia outweighs benefits of resuming this CHRIST on Chronic kidney disease stage III Baseline appears to be 1.5-1.6, kidney function improving, 1.73 today Close to baseline, encourage hydration Chronic combined systolic and diastolic congestive heart failure Per documentation, following with cardiology as outpt Appears to have recovered EF, however, with echo 09/02/21 demonstrating EF of 50% but does note diastolic dysfunction -BNP 79.3 -Patient has no swelling in his bilateral lower extremities, do not feel fluid overload is the cause of current symptoms. On BB, losartan held d/t kidney function not yet back to baseline, will need restarted as outpt Chronic macrocytic anemia -Hemoglobin 10-11, consistent with baseline MCV >100 consistently -Continue p.o. iron supplementation Most recent iron studies 02/2022 consistent with anemia of chronic disease but given MCV will check b12 and folate as these were last checked 2015 B12, folate, and tsh wnl this admission -CBC daily DVT prophylaxis-subcu heparin Daniela Altamirano MD 30 minutes spent in clinical coordination of patient's plan of care. Charges/Coding Visit Charges Inpatient E&M: 36865 Subs Hosp L2
[2022-03-09 07:05] LABS: Bedside Glucose 151 mg/dL (74-106)
[2022-03-09] MEDS: Iron Polysaccharide Complex 150 MG CAPSULE PO (09:40)
[2022-03-09] MEDS: Carvedilol 3.125 MG TABLET PO (09:40)
[2022-03-09] MEDS: Senna Tablet 2 TABLET PO (09:40)
[2022-03-09] MEDS: Heparin Injection (Vial) 5,000 UNIT/ML VIAL 5000 UNIT SC (09:40)
[2022-03-09] MEDS: guaiFENesin 10 ML UDC (200MG/10ML) 20 ML PO (09:41)
[2022-03-09 11:15] LABS: Bedside Glucose 204 mg/dL (74-106)
--- NOTE | 2022-03-09 11:24 | DCINST_ITS ---
Discharge Instructions Diet Discharge Diet: 2000 mg Sodium Diet Activity Discharge Activity: Return to Normal Activity Follow Up Care Test Results: Test results from this visit will be discussed in further detail at your follow- up appointment, if applicable. Discharge Plan Admission Admit Date/Time: 03/06/22 22:20 Primary Reason for Your Visit: Shortness of breath Attending Provider: Daniela Altamirnao Primary Care Provider: Dusty Almanza Consulting Providers: Romel Kolb ; Kierra Haro Instructions Patient Instructions: ED Pneumonia (Adult) Additional Instructions / Restrictions: *Please take this with you to your next doctors appointment* -You have been admitted for shortness of breath and were found to have pneumonia -You have been on antibiotics, levofloxacin, to treat the pneumonia. You will need two more doses, one dose the evening of 03/10/22 and the next dose 03/12/22. They are one day apart to account for your kidney function -Please do not restart your metformin until speaking with your primary care physician after discharge as your kidney function is now returning to baseline -Do not resume your glimeperide until speaking with your primary care physician after discharge due to concerns for low blood sugar. Your A1c was 6.3 during this admission -Please do not resume your losartan until speaking with your primary care physician given kidney function reduced during admission -Continue coreg (carvedilol) at an increased dose of 3.125 twice daily -your amlodipine was held due to your coreg increase -You will be discharged on 2L of oxygen with activity. 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 This is was seen on your imaging on admission, though does not impact your current condition it is important for your primary care doctor to be aware of this in the event they feel surveillance is appropriate. Please show this to you primary care physician -Please call your primary care provider's office upon discharge to schedule a hospital follow up within 1 week. -Please call your cardiologists office to schedule a hospital follow up. -For any concerning signs or symptoms please call 911 or proceed to the nearest emergency department Discharge Orders/Prescriptions Prescriptions: New carvedilol 3.125 mg Tablet 3.125 mg PO BID 30 Days Qty: 60 0RF albuterol sulfate 90 mcg/actuation HFA aerosol inhaler 2 puff inhalation Q6H PRN (Reason: shortness of breath or wheezing) Qty: 6.7 0RF levofloxacin 750 mg tablet 750 mg PO QODAY 3 Days Qty: 2 0RF Rx Instructions: START 03/10 second dose 03/12 Continued polysaccharide iron complex [Ferrex 150] 150 mg iron capsule 150 mg PO DAILY Rx Instructions: avoid dairy/calcium-containing products and/or antacids for at least 2 hrs before and after dose fluticasone propionate [Allergy Relief (fluticasone)] 50 mcg/actuation spray,suspension 2 spray intranasal DAILY Rx Instructions: administer into each nostril (DME) handicap placcard See Rx Instructions .Route .MEDSUPPLY Qty: 1 0RF Rx Instructions: dx: Debility Lifetime ascorbic acid (vitamin C) [Vitamin C] 500 mg Tablet 500 mg PO DAILY mv,Ca,min-iron [id number] 14-200-90 mg-mcg-mg Tablet 1 tab PO DAILY Held metformin 500 mg tablet extended release 24 hr 500 mg PO DAILY Hold Instructions: Resume on 03/15/22. Discuss with your primary care physician prior to starting Label Comments: TAKE 2 TABLETS BY MOUTH EVERY DAY losartan 50 mg tablet 50 mg PO DAILY Hold Instructions: Resume on 03/15/22. Discuss with your primary care physician prior to resuming Discontinued amlodipine 2.5 mg tablet 2.5 mg PO DAILY glipizide 5 mg tablet extended release 24hr 5 mg PO DAILY Label Comments: take 1 tablet by mouth every morning No Action carvedilol 3.125 mg tablet 1.5625 mg PO BID Referrals / Follow Up: Dusty Almanza MD [Primary Care Provider] - Erum Blank PA [Med Staff - Adv Practice Prof] - In 1 Week (Please call to schedule a follow up with your Cardiology office. ) Disposition Disposition (needs filled in before D/C Order can be placed): Home, Self Care
--- NOTE | 2022-03-09 11:44 | PCM.DC.SUM ---
Providers Date of Admission: 03/06/22 Date of Discharge: 03/09/22 Primary Care Physician: Dr. Dusty Almanza MD Reason For Visit: HYPOXIA Diagnosis Discharge Diagnosis (1) Hypoxia: Status: Acute Code(s): R09.02 - Hypoxemia Plan 1. Acute hypoxic respiratory failure secondary to community acquired pneumonia- improving -CT chest 03/06 concerning for small opacity in SALOME, cxr this AM consistent with that- images reviewed and consistent with SALOME pneumonia -O2 sat in mid 80's off O2 in ER- improved over admission but pt required 2L o2 with ambulation and was discharged with this -Patient initiated on IV Levaquin 03/06. Given continued O2 need will treat with 7 days of levaquin at 750mg q48 hr dosing given calculated CrCl of 35. -Rapid COVID-negative, COVID PCR negative Community acquired pneumonia On Levaquin 03/06, today D4 of abx, will treat for 7 given continued O2 requirement NSTEMI Type II Trop initially 32->86->128->153->now down trended to 144 EKG on admission concerning for accelerated junctional rhythm and HR was low 100's Did have borderline BPs during admission and no chest pain, SOB explained by SALOME pneumonia and symptoms have improved with treatment of the pneumonia/underlying condition Last cardiac cath 05/2017 with normal coronary arteries, appears to be established with cardiology Follow up w/ cardiology on d/c Hypertension BP improved on home coreg- which was increased losartan continues to be held d/t kidney function not back to baseline Diabetes mellitus type 2, controlled A1c 6.3 10/10/21 Given kidney function not back to baseline will defer resumption of metformin to PCP after d/c Will hold glimepiride given A1c under goal at 6.3 and risk for hypoglycemia outweighs benefits of resuming this CHRIST on Chronic kidney disease stage III Baseline appears to be 1.5-1.6, kidney function slowly improving, 1.73 today Chronic combined systolic and diastolic congestive heart failure Per documentation, following with cardiology as outpt Appears to have recovered EF, however, with echo 09/02/21 demonstrating EF of 50% but does note diastolic dysfunction -BNP 79.3 -Patient has no swelling in his bilateral lower extremities, do not feel fluid overload is the cause of his SOB On BB, losartan held d/t kidney function not yet quite back to baseline, will need restarted as outpt Chronic macrocytic anemia -Hemoglobin 10-11, consistent with baseline MCV >100 consistently -Continue p.o. iron supplementation Most recent iron studies 02/2022 consistent with anemia of chronic disease Medications at Discharge Home Medications polysaccharide iron complex 150 mg iron capsule (Ferrex) 150 mg PO DAILY 06/02/19 fluticasone propionate 50 mcg/actuation nasal spray,suspension (Allergy Relief (fluticasone)) 2 spray intranasal DAILY allergies 04/06/21 handicap placcard #1 ea 10/05/21 ascorbic acid (vitamin C) 500 mg tablet (Vitamin C) 500 mg PO DAILY supplement 03/06/22 carvedilol 3.125 mg tablet 1.5625 mg PO BID blood pressure 03/06/22 losartan 50 mg tablet 50 mg PO DAILY blood pressure 03/06/22 metformin 500 mg tablet,extended release 24 hr 500 mg PO DAILY dm 03/06/22 multivit,Ca,min-iron fum-folic acid-bacill 14 mg-200 mcg-90 mg tablet 1 tab PO DAILY health maintenance 03/06/22 albuterol sulfate 90 mcg/actuation aerosol inhaler 2 puff inhalation Q6H PRN shortness of breath or wheezing #6.7 grams 03/09/22 carvedilol 3.125 mg tablet 3.125 mg PO BID 30 days #60 tabs 03/09/22 levofloxacin 750 mg tablet 750 mg PO QODAY START 03/10 second dose 03/12 3 days #2 tabs 03/09/22 Hospital Course Summary of Care Provided Minutes Spent on Discharge: 35 Hospital Course: Mr. Sommers is a 81 y/o male w/ a hx of combined chronic heart failure, DMII, ZEYNEP, and CKDIII who presented to [facility] 03/06 with 1 week of non productive cough and SOB. He was hypoxic to the 80's on room air and was found to have left sided pneumonia on CT and was diagnosed with CAP. He was started on Levaquin but continued to be O2 dependent and SOB. He clinically improved but required 2L O2 on ambulation. Given improvement he was discharged on 2L O2 with ambulation and levaquin q48 hrs given his CrCl which was reduced. Additional relevant hospital history- on admission he was noted to have troponin that increased and peaked at 153 before downtrending to 144 and was diagnosed with a type II nstemi. He never had chest pain or palpitations and his hypoxia and SOB were 2/2 his pneumonia. EKGs and tele were followed. He had intermittent PVCs and tachycardia initially, his home BB was started and titrated up to 3.125 BID. Given clinical picture and hospital course outpatient cardiology follow up is reasonable. 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 He also had CHRIST on CKD during this admission which began to improve with clinical status. At d/c he was close to baseline but given frail status with poor renal function at baseline decision was made to hold losartan until close f/u with PCP. Metformin also held d/t borderline renal function. Glimepiride held d/t risk for hypoglycemia and A1c 6.3, below goal for age and comorbidities. Detailed instructions printed and provided to pt. Advised these are taken with him to PCP for all changes to be noted. Additionally there was a 4cm ascending aortic aneurysm on his CT scan found incidentally, this was also included on instructions to discuss. Daniela Altamirano MD Weight / BMI Weight Weight: 72 kg Body Mass Index (BMI) 27.2 ABG / Lab / Microbiology Data Result Diagrams: 03/09/22 05:57 03/09/22 05:57 Laboratory: Laboratory Results - last 24 hr 03/08/22 04:42: Diff Path Review Reviewed 03/08/22 11:19: POC Glucose 182 H 03/08/22 16:36: POC Glucose 236 H 03/08/22 20:57: POC Glucose 166 H 03/09/22 05:57: WBC 7.7, RBC 3.06 L, Hgb 11.1 L, Hct 33.2 L, MCV 108.5 H, MCH 36.3 H, MCHC 33.4, RDW Std Deviation 60.5 H, RDW Coeff of Merry 15.1 H, Plt Count 141 L, MPV 11.2, Immature Gran % (Auto) 1.300 H, Neut % (Auto) 56.0, Lymph % (Auto) 19.7, [place] % (Auto) 20.4 H, Eos % (Auto) 2.3, Baso % (Auto) 0.3, Absolute Neuts (auto) 4.3, Absolute Lymphs (auto) 1.51, Nucleated RBC % 0.3, Anisocytosis 1+, Macrocytosis 2+ 03/09/22 05:57: Sodium 139, Potassium 4.1, Chloride 109 H, Carbon Dioxide 21.0, Anion Gap 9, BUN 36 H, Creatinine 1.73 H, Estim Creat Clear Calc 28.99, Est GFR (MDRD) Af Amer 49 L, Est GFR (MDRD) Non-Af 41 L, BUN/Creatinine Ratio 20.8 H, Glucose 151 H, Calcium 8.5, Magnesium 2.0, Total Bilirubin 0.70, AST 16, ALT 15 L, Alkaline Phosphatase 82, Total Protein 7.4, Albumin 3.0 L, Globulin 4.4 H, Albumin/Globulin Ratio 0.7 L 03/09/22 06:35: POC Glucose 151 H 03/09/22 10:53: POC Glucose 204 H Microbiology: Microbiology 03/07/22 02:00 Mucosa - Nasopharyngeal Respiratory Panel (PCR) - Final 03/06/22 19:24 Nasal Secretion SARS-CoV-2 Antigen (Rapid) - Final D/C Instructions Discharge Diet: 2000 mg Sodium Diet Meaningful Use Info Meaningful Use Diagnoses (Choose all that apply): CHF CHF DIMAS/ARB ordered at discharge?: No Reason DIMAS/ARB not ordered?: Worsening renal function Documented LVEF (%): 50 Discharge Plan Admission Admit Date/Time: 03/06/22 22:20 Primary Reason for Your Visit: Shortness of breath Attending Provider: Daniela Altamirano Primary Care Provider: Dusty Almanza Consulting Providers: Romel Kolb ; Kierra Haro Instructions Patient Instructions: ED Pneumonia (Adult) Additional Instructions / Restrictions: *Please take this with you to your next doctors appointment* -You have been admitted for shortness of breath and were found to have pneumonia -You have been on antibiotics, levofloxacin, to treat the pneumonia. You will need two more doses, one dose the evening of 03/10/22 and the next dose 03/12/22. They are one day apart to account for your kidney function -Please do not restart your metformin until speaking with your primary care physician after discharge as your kidney function is now returning to baseline -Do not resume your glimeperide until speaking with your primary care physician after discharge due to concerns for low blood sugar. Your A1c was 6.3 during this admission -Please do not resume your losartan until speaking with your primary care physician given kidney function reduced during admission -Continue coreg (carvedilol) at an increased dose of 3.125 twice daily -your amlodipine was held due to your coreg increase -You will be discharged on 2L of oxygen with activity. 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 This is was seen on your imaging on admission, though does not impact your current condition it is important for your primary care doctor to be aware of this in the event they feel surveillance is appropriate. Please show this to you primary care physician -Please call your primary care provider's office upon discharge to schedule a hospital follow up within 1 week. -Please call your cardiologists office to schedule a hospital follow up. -For any concerning signs or symptoms please call 911 or proceed to the nearest emergency department Discharge Orders/Prescriptions Prescriptions: New carvedilol 3.125 mg Tablet 3.125 mg PO BID 30 Days Qty: 60 0RF albuterol sulfate 90 mcg/actuation HFA aerosol inhaler 2 puff inhalation Q6H PRN (Reason: shortness of breath or wheezing) Qty: 6.7 0RF levofloxacin 750 mg tablet 750 mg PO QODAY 3 Days Qty: 2 0RF Rx Instructions: START 03/10 second dose 03/12 Continued polysaccharide iron complex [Ferrex 150] 150 mg iron capsule 150 mg PO DAILY Rx Instructions: avoid dairy/calcium-containing products and/or antacids for at least 2 hrs before and after dose fluticasone propionate [Allergy Relief (fluticasone)] 50 mcg/actuation spray,suspension 2 spray intranasal DAILY Rx Instructions: administer into each nostril (DME) handicap placcard See Rx Instructions .Route .MEDSUPPLY Qty: 1 0RF Rx Instructions: dx: Debility Lifetime ascorbic acid (vitamin C) [Vitamin C] 500 mg Tablet 500 mg PO DAILY mv,Ca,min-iron gej-HV-sahawf 14-200-90 mg-mcg-mg Tablet 1 tab PO DAILY Held metformin 500 mg tablet extended release 24 hr 500 mg PO DAILY Hold Instructions: Resume on 03/15/22. Discuss with your primary care physician prior to starting Label Comments: TAKE 2 TABLETS BY MOUTH EVERY DAY losartan 50 mg tablet 50 mg PO DAILY Hold Instructions: Resume on 03/15/22. Discuss with your primary care physician prior to resuming Discontinued amlodipine 2.5 mg tablet 2.5 mg PO DAILY glipizide 5 mg tablet extended release 24hr 5 mg PO DAILY Label Comments: take 1 tablet by mouth every morning No Action carvedilol 3.125 mg tablet 1.5625 mg PO BID Referrals / Follow Up: Janneth Almonte NP, [employer] [Non-Staff -Ordering Privileges] - 03/23/22 11:30 am Erum Blank PA [Med Staff - Adv Practice Prof] - 04/11/22 11:30 am (Please call to schedule a follow up with your Cardiology office. ) Disposition Disposition (needs filled in before D/C Order can be placed): Home, Self Care Charges/Coding Visit Charges Inpatient E&M: 90328 Disch Hosp
--- NOTE | 2022-03-09 11:53 | CASEMGMT ---
Addendum entered by Mague Singh 03/09/22 15:38: present. BENNY PALACIOS to room and reviewed Home O2 set-up procedure. She denies having any further questions. Addendum entered by Mague Singh 03/09/22 12:10: Teresa @ [facility] made aware O2 tank given to pt from [facility] supply. Addendum entered by Mague Singh 03/09/22 12:01: Discharge summary w/documentation to support home O2 requirements faxed to [facility] at this time. Original Note: BENNY PALACIOS NOTE: Pt is being discharged home. Home O2 testing has been completed and pt requires 2 l/m O2 w/exertion. BENNY PALACIOS to room. Pt was provided with list of DME providers consistent with the patient's preferred geographic region, medical needs, and insurance network. Pt also made aware [facility] is affiliated w/[facility]. The pt's preferred provider is [facility]. Script obtained from Dr Altamirano and referral sent to [facility] via [employer]. Pt to be provided w/portable O2 tank from [facility] supply. Geraldine ZAPATA, to provide pt w/pulse ox and instructions on use. Pt made aware to call [facility] prior to discharge to make arrangements for further O2 to be delivered to his home. He asks BENNY PALACIOS to review this info w/his when she comes in. Geraldine ZAPATA, to contact BENNY PALACIOS when arrives. Lynda SHELTON RN, CM
== END 2022-03-09 15:46 | disposition home or self-care (01) | DRG 194 ==
LOC: ED 21:58 → PCU 23:21
PROVIDERS: Nurse Practitioner Family; Admitting Provider Family Medicine; Emergency Provider Emergency Medicine; PCP Family Medicine; Visit Provider Internal Medicine
DX: J18.9 Pneumonia, unspecified organism (principal); N17.9 Acute kidney failure, unspecified; I43 Cardiomyopathy in diseases classified elsewhere; I13.0 Hypertensive heart and chronic kidney disease with heart failure and stage 1 through stage 4 chronic kidney disease, or unspecified chronic kidney disease; I50.42 Chronic combined systolic (congestive) and diastolic (congestive) heart failure; D63.1 Anemia in chronic kidney disease; E11.22 Type 2 diabetes mellitus with diabetic chronic kidney disease; N18.30 Chronic kidney disease, stage 3 unspecified; D53.9 Nutritional anemia, unspecified; I71.21 Aneurysm of the ascending aorta, without rupture; Z95.2 Presence of prosthetic heart valve; Z79.01 Long term (current) use of anticoagulants; Z79.84 Long term (current) use of oral hypoglycemic drugs; Z79.899 Other long term (current) drug therapy
CPT/HCPCS: 36415; 71045; 71250; 80048; 80053; 82436; 82570; 82607; 82746; 82962; 83735; 83880; 84133; 84300; 84484; 85025; 85610; 85730; 87633; 87635; 87811; 93005; 94640; 97162; 97166; 97530; 97535; 99251; 99284; J7040; J7050; A4216; G0463; U0003; U0005

== ENCOUNTER → 2022-03-23 | Outpatient (CLI) | payer MEDICARE, SELFPAY ==
[2022-03-23 15:25] LABS: Absolute Lymphocyte Count 1.82 X10^3/uL (0.83-4.51); Absolute Neutrophil Count 1.2 X10^3/uL (2.0-7.7); Basophil# 0.03 X10^3/uL; Basophil% 0.7 % (0-1); Eosinophil# 0.07 X10^3/uL; Eosinophils% 1.6 % (0-5); Hematocrit 32.8 % (40-54); Hemoglobin 10.5 g/dL (13.0-16.5); Lymphocyte # 1.82 X10^3/ul (0.83-4.51); Lymphocyte % 42.4 % (19-41); Mean Corpuscular Hgb 36.2 pg (27.0-32.0); Mean Corpuscular Volume 113.1 fL (80-94); Mean Platelet Vol. 11.2 fl (6.2-12.0); Monocyte# 1.12 X10^3/uL; Monocyte% 26.1 % (0-10); NRBC Flagged by Analyzer 0.7 % (0-5); Neutrophil # 1.17 X10^3/uL (2.7-7.7); Neutrophil % 27.3 % (47-70); Platelet Count 172 K/mm3 (150-450); RBC Distribution Width CV 15.2 % (11.6-14.6); RBC Distribution Width SD 62.6 fl (35.1-43.9); White Blood Count 4.3 K/mm3 (4.4-11.0)
[2022-03-23 15:36] LABS: Anion Gap 4 (5-15); BUN 28 mg/dL (7-18); BUN/Creat Ratio 19.4 RATIO (10-20); Chloride 106 mmol/L (98-107); Creatinine, Serum 1.44 mg/dL (0.70-1.30); EST Glomerular Filtration Rate 50 mL/min (>60); Est Glom Filt Rate - Afr Amer 61 mL/min (>60); Glucose 242 mg/dL (74-106); Potassium 4.6 mmol/L (3.5-5.1); Sodium Level 139 mmol/L (136-145)
== END | disposition home or self-care (01) ==
LOC: MFPLAB 12:14
PROVIDERS: Nurse Practitioner Family; PCP Family Medicine; Referring Provider Family Medicine; Visit Provider Family Medicine
DX: I10 Essential (primary) hypertension (principal); D63.8 Anemia in other chronic diseases classified elsewhere
CPT/HCPCS: 36415; 80048; 85025

== ENCOUNTER → 2022-06-13 | Outpatient (CLI) | payer MEDICARE, SELFPAY ==
--- NOTE | 2022-06-13 16:00 | RAD_ITS ---
INDICATION: DYSPNEA EXAMINATION/TECHNIQUE: X-RAY - XR Chest 2 Views COMPARISON: None. FINDINGS: The lungs are clear. Sternal cerclage wires and vascular clips are present from a prior sternotomy and coronary artery bypass graft procedure (CABG). Tortuous and calcified thoracic aorta. The heart is not enlarged. No pleural effusion or pneumothorax. Degenerative changes of the thoracic spine. RAD/Chest PA and Lateral IMPRESSION: No acute radiographic abnormalities. Electronically Signed: Berny Mares MD at 16:43 EST ,
[2022-06-13 17:49] LABS: Absolute Lymphocyte Count 1.68 X10^3/uL (0.83-4.51); Absolute Neutrophil Count 0.9 X10^3/uL (2.0-7.7); Basophil# 0.01 X10^3/uL; Basophil% 0.3 % (0-1); Eosinophil# 0.03 X10^3/uL; Eosinophils% 0.9 % (0-5); Hematocrit 33.3 % (40-54); Hemoglobin 10.7 g/dL (13.0-16.5); Lymphocyte # 1.68 X10^3/ul (0.83-4.51); Lymphocyte % 50.1 % (19-41); Mean Corp Hgb Conc 32.1 g/dL (32-36); Mean Corpuscular Volume 108.8 fL (80-94); Mean Platelet Vol. 11.7 fl (6.2-12.0); Monocyte# 0.72 X10^3/uL; Monocyte% 21.5 % (0-10); NRBC Flagged by Analyzer 1.8 % (0-5); Neutrophil # 0.88 X10^3/uL (2.7-7.7); Neutrophil % 26.3 % (47-70); POSITIVE DIFFERENTIAL YES; Platelet Count 147 K/mm3 (150-450); RBC Distribution Width CV 15.2 % (11.6-14.6); RBC Distribution Width SD 59.6 fl (35.1-43.9); RET-HE 36.7 pg (30-35); Red Blood Count 3.06 M/mm3 (4.6-6.2); Reticulocyte Count 1.47 % (0.5-1.5); White Blood Count 3.4 K/mm3 (4.4-11.0)
[2022-06-13 17:52] LABS: Differential Indicated SCAN CRITERIA MET
[2022-06-13 18:11] LABS: Differential Comment SCANNED; Reactive Lymphocyte 1+
[2022-06-13 18:18] LABS: AST(SGOT) 13 U/L (15-37); Alanine Aminotransfer ALT/SGPT 15 U/L (16-61); Albumin, Serum 3.4 g/dL (3.2-5.0); Alkaline Phosphatase 75 U/L (45-117); Anion Gap 7 (5-15); BUN 35 mg/dL (7-18); Calcium,Total 8.3 mg/dL (8.5-10.1); Chloride 109 mmol/L (98-107); Creatinine, Serum 1.67 mg/dL (0.70-1.30); EST Glomerular Filtration Rate 42 mL/min (>60); Est Glom Filt Rate - Afr Amer 51 mL/min (>60); Ferritin 135 ng/mL (26-388); Globulin 3.5 g/dL (2.2-4.2); Glucose 250 mg/dL (74-106); Iron 80 ug/dL (65-175); Potassium 4.3 mmol/L (3.5-5.1); Protein, Total 6.9 g/dL (6.4-8.2); Sodium Level 142 mmol/L (136-145); Thyroid Stim Hormone (TSH) 1.49 uIU/mL (0.358-3.74)
== END | disposition home or self-care (01) ==
LOC: MTLAB 15:38
PROVIDERS: PCP Family Medicine; Referring Provider Family Medicine; Visit Provider Family Medicine
DX: R06.00 Dyspnea, unspecified (principal); D63.8 Anemia in other chronic diseases classified elsewhere
CPT/HCPCS: 36415; 71046; 80053; 82728; 83540; 84443; 85025; 85045

== ENCOUNTER 2022-06-14 13:15 | Outpatient (RCR) | payer MEDICARE, SELFPAY ==
--- NOTE | 2022-06-14 16:34 | HP.PTEVAL ---
Patient's Visit Information GILBERTO DE LEÓN is a 82 year old M referred to Physical Therapy by Dr. Dusty Almanza MD with a diagnosis of Balance. Date of Evaluation: 06/14/22 Physical Therapist: Janneth Haynes DPT - Visit Plan Frequency: 1x/Week Duration: 1 Week Plan: Due to high co-pay pt has asked for a home exercise program- educated that walker may be more appropriate in community. HEP Given IE: kitchen sink ex, weight shifting lateral and fwd/back - Subjective Patient reports that he is here today because his doctor wants him to have physical therapy due to being off balance. He had open heart surgery and he has had issues with his balance since then- he was in the hospital for 2 months. He was also in the hospital about a month ago. He does have falls- in the last 5 years he has fallen 20x. Last time he fell was 2 weeks ago- he forgot there was a curb and down he went. He has a cane that he will use if he does a lot of walking but does not use it when he is at the house. He has a walker but he only uses in the morning to when he uses the bathroom. He is home most of the time and he doesn't go a lot of places. He has a little bit of pain in the left knee but nothing too bad. Lives with who can help him but she also uses a walker- he has stairs to the basement- he has a wood stove down with a single hand rail. No problems going up/down the stairs. He has an exercise bike that he rides 3x a week for about 30 min. He is unable to come to therapy due to the high co-pay. He doesn't feel that his balance is getting worse. He feels pretty good and is hopesto get rid of the O2 soon- He is currently on 2 liters. PMHx/Meds: see chart- no changes since last hospital stay - Objective Posture: FH, RS- can correct with verbal cues but does not maintain. Gait: straight cane- decreased step length and poor weight shifting- increased base of support and slow ana. Endurance: pt required O2 when walking >25 feet due to increased SOB. HR/TR: able with UE A. Balance: see FGA and TUG. ROM: WFL in all planes. Strength: Hip: 4/5 throughout, Knee: 4+/5 Ankle:4+/5 Coordination: WFL in LE. Flex: HS: severe, Gastroc: severe - Balance/Special Test Scores Functional Gait Assessment Score: 10 % Disability: 66.6700 Oswestry Low Back Score: 0 TUG Test Time Seconds: 23 30 Second Chair Rise Test Seconds: 15 - Goals Goal 1:: Patient will be I with HEP and progression Goal Time Frame: 4-6 Weeks - Rehabilitation Potential Physical Therapy Diagnosis: Patient presents with hypomobility s/p falls. He has decreased LE and core strength/stabilization, proprioception, flex and muscular endurance leading to poor posture, proprioception and functional mobility. Rehabilitation Potential: Fair - Anticipated Interventions Thank you for the opportunity to evaluate your patient. For Medicare and Medicare HMO plans, please review the plan of care and approve it. It will need to be FAXED BACK to us at [phone] for Medicare purposes. For Medicare only, by signing this I certify the plan of care. Please let me know if there are questions or concerns regarding this plan of care. Physician Signature: Date:
--- NOTE | 2022-08-28 07:38 | HP.PTDCSUM ---
It has been my pleasure to treat GILBERTO DE LEÓN referred by Dr. Dusty Almanza MD, with the diagnosis of Balance for a total of 1 visit(s). Discharge Date: Please see the following information for a summary of their discharge status. Goal 1:: Patient will be I with HEP and progression Plan: Due to high co-pay pt has asked for a home exercise program- educated that walker may be more appropriate in community. HEP Given IE: kitchen sink ex, weight shifting lateral and fwd/back If there are questions or concerns regarding this patient's physical therapy, please feel free to call me at [phone]. Thank you for the referral of this patient. Sincerely, Janneth Haynes, DPT Balance/Gait/Functional tests - Balance/Special Test Scores Functional Gait Assessment Score: 10 % Disability: 66.6700 Oswestry Low Back Score: 0 TUG Test Time Seconds: 23 Tug Test: 20-30sec.=variable mobility 30 Second Chair Rise Test Seconds: 15
== END 2022-06-14 19:00 | disposition home or self-care (01) ==
LOC: PT 13:15
PROVIDERS: PCP Family Medicine; Referring Provider Family Medicine; Visit Provider Family Medicine
DX: R26.89 Other abnormalities of gait and mobility (principal)
CPT/HCPCS: 97110; 97162

== ENCOUNTER → 2022-06-27 | Outpatient (CLI) | payer MEDICARE, SELFPAY ==
--- NOTE | 2022-06-27 14:48 | ECHOD_ITS ---
Reason For Study: DYSPNEA Procedure This was a 2D Doppler, Color Flow transthoracic echocardiogram. The study was technically difficult. Exam performed in department. Left Ventricle Normal LV size. Left ventricular systolic function is normal. The estimated ejection fraction is 55 %. Post operative septal motion. Diastolic function is indeterminate. No regional wall motion abnormalities noted. Right Ventricle Normal RV size. Normal systolic function. Atria Normal left atrium. Normal right atrium. No doppler evidence for ASD. Mitral Valve An annuloplasty ring is noted in the mitral position. Trivial transvalvular insufficiency of the mitral valve. Tricuspid Valve Normal tricuspid valve. Mild tricuspid valve insufficiency. Right ventricular systolic pressure estimated to be 58 mmHg. Aortic Valve Stable appearing bioprosthetic aortic valve apparatus. Pulmonic Valve The pulmonic valve is not well visualized. Trivial pulmonic valve insufficiency. Great Vessels Normal sized aortic root. Pericardium/Pleural No pericardial effusion. MMode/2D Measurements & Calculations LVIDd: 5.0 cm IVSd: 1.1 cm Ao root diam: 3.4 cm LVIDs: 3.5 cm LVPWd: 1.1 cm RVDd: 4.0 cm FS: 30.4 % LAV(MOD-bp): 86.3 ml LVAd ap4: 27.1 cm2 LVAd ap2: 27.4 cm2 LAV(MOD-bp) Indexed: 48.1 ml/m2 LVLd ap4: 7.6 cm LVLd ap2: 7.8 cm LAV(MOD-sp2): 88.5 ml EDV(MOD-sp4): 86.9 ml EDV(MOD-sp2): 86.3 ml LAV(MOD-sp4): 83.4 ml EDV(sp4-el): 82.1 ml EDV(sp2-el): 81.7 ml LVAs ap4: 17.7 cm2 LVAs ap2: 18.0 cm2 LVLs ap4: 7.0 cm LVLs ap2: 7.5 cm ESV(MOD-sp4): 42.3 ml ESV(MOD-sp2): 39.5 ml ESV(sp4-el): 38.3 ml ESV(sp2-el): 36.3 ml EF(MOD-sp4): 51.4 % EF(MOD-sp2): 54.3 % EF(sp4-el): 53.3 % SV(MOD-sp4): 44.7 ml SV(MOD-sp2): 46.9 ml SV(sp4-el): 43.8 ml LA dimension(2D): 3.9 cm LA A4 area: 24.1 cm2 RA A4 area: 17.3 cm2 Doppler Measurements & Calculations MV E max kelsie: 122.4 cm/sec Ao V2 max: 161.8 cm/sec LV V1 max: 96.1 cm/sec Ao max P.5 mmHg LV V1 max P.7 mmHg Ao V2 mean: 114.1 cm/sec LV V1 mean P.3 mmHg Ao mean P.9 mmHg LV V1 mean: 71.5 cm/sec Ao V2 VTI: 28.7 cm LV V1 VTI: 17.2 cm AV (velocity ratio): 0.60 MR max kelsie: 345.9 cm/sec PA V2 max: 94.6 cm/sec TR max kelsie: 369.3 cm/sec MR max P.0 mmHg TR max P.6 mmHg MR mean kelsie: 0.00 cm/sec MR mean P.00 mmHg MR VTI: 0.00 cm ECHO/Echo Complete Interpretation Summary Left ventricular systolic function is normal. The estimated ejection fraction is 55 %. Post operative septal motion. An annuloplasty ring is noted in the mitral position. Trivial transvalvular insufficiency of the mitral valve. Mild tricuspid valve insufficiency. Stable appearing bioprosthetic aortic valve apparatus. Trivial pulmonic valve insufficiency. Right ventricular systolic pressure estimated to be 58 mmHg c/w pulmonary hyper tension. Diastolic function is indeterminate. Ordering Physician: Berny Almanza Referring Physician: Dusty Almanza Performed By: Jacqueline Kahn, ITZEL, RVT
== END | disposition home or self-care (01) ==
LOC: CVS 14:47
PROVIDERS: PCP Family Medicine; Referring Provider Family Medicine; Visit Provider Family Medicine
DX: R06.00 Dyspnea, unspecified (principal)
CPT/HCPCS: 93306

== ENCOUNTER 2022-09-07 11:23 | Emergency (ER) | payer MEDICARE, SELFPAY ==
[2022-09-07 11:23] VITALS: BP 142/96; PULSE 87; RESP 16; TEMP 36.4; O2SAT 97
[2022-09-07 11:39] VITALS: BMI 28.0
--- NOTE | 2022-09-07 12:07 | CT_ITS ---
STUDY: CT BRAIN WITHOUT CONTRAST REASON FOR EXAM: Male, 82 years old. Head injury RADIATION DOSAGE (If Supplied By Facility): CTDIvol = ( 44.99 ) mGy, DLP = ( 796.11 ) mGycm TECHNIQUE: Transaxial CT imaging of the brain was performed without administration of intravenous contrast material. Individualized dose optimization techniques were used for this CT. COMPARISON: Comparison is made with prior study dated July 23, 2017. FINDINGS: Normal soft tissue structures. Normal calvarium. There is mild cerebral atrophy with widening of the extra-axial spaces and ventricular dilatation. There are areas of decreased attenuation within the white matter tracts of the supratentorial brain, consistent with microvascular disease changes. Normal basal ganglia and thalami. Normal brainstem. Normal cerebellum. There is no intracranial hemorrhage. There are no findings of an acute ischemic infarction. Atherosclerotic calcification of the cavernous portions of the internal carotid arteries as well as the vertebral arteries. Normal visualized paranasal sinuses. CT/Brain/Head without Contrast IMPRESSION: Chronic involutional changes of the brain. Electronically Signed: Davie Scott MD at 12:42 EDT ,
--- NOTE | 2022-09-07 12:16 | RAD_ITS ---
STUDY: X-RAY - LEFT ELBOW REASON FOR EXAM: Male, 82 years old. Pain following a fall. TECHNIQUE: 3 view(s) of the elbow. COMPARISON: None. FINDINGS: Normal visualized humerus, radius and ulna. Normal radiocapitellar and ulnotrochlear articulations. The soft tissue structures are unremarkable. RAD/Elbow min 3 Views IMPRESSION: Normal x-ray examination of the elbow. Electronically Signed: Davie Scott MD at 12:42 EDT ,
--- NOTE | 2022-09-07 12:41 | EDS_ITS ---
HPI HPI - Fall History of Present Illness Chief Complaint: Fall Narrative Narrative: 82-year-old male past medical history of diabetes, chronic kidney disease states that he was coming to the hospital to the outpatient offices for a medical appointment that he had today. As he was walking through the revolving door, he states the nurse came up to him and he stopped. The revolving door hit him in the back of the head. He fell forward, and injured his left elbow. He is right-hand dominant. He does not take blood thinners. He denies loss of consciousness. Rapid response team was called and they present him to the emergency department for evaluation from his fall. He sustained an abrasion to his left elbow but is unsure of his last tetanus immunization. 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 Metabolic encephalopathy Mitral valve insufficiency Nonrheumatic aortic valve stenosis Nonrheumatic aortic valve stenosis with insufficiency Type 2 diabetes mellitus with hyperglycemia Home Medications polysaccharide iron complex 150 mg iron capsule (Ferrex) 150 mg PO DAILY 06/02/19 [History Last Taken 03/05/22] fluticasone propionate 50 mcg/actuation nasal spray,suspension (Allergy Relief (fluticasone)) 2 spray intranasal DAILY allergies 04/06/21 [History Last Taken 03/06/22] ascorbic acid (vitamin C) 500 mg tablet (Vitamin C) 500 mg PO DAILY supplement 03/06/22 [History Last Taken 03/05/22] multivit,Ca,min-iron fum-folic acid-bacill 14 mg-200 mcg-90 mg tablet 1 tab PO DAILY health maintenance 03/06/22 [History Last Taken 03/05/22] albuterol sulfate 90 mcg/actuation aerosol inhaler 2 puff inhalation Q6H PRN shortness of breath or wheezing #6.7 grams 03/09/22 [Rx Last Taken Unknown] handicap placcard #1 ea 04/11/22 [Rx Last Taken Unknown] losartan 25 mg tablet 25 mg PO DAILY #30 tabs 04/11/22 [Rx Last Taken Unknown] carvedilol 3.125 mg tablet 3.125 mg PO BID 30 days #60 tabs 06/14/22 [Rx Last Taken Unknown] Allergy/AdvReac Type Severity Reaction Status Date / Time No Known Allergies Allergy Verified 08/15/22 10:20 Family History Mother Hypertension Father Hypertension Surgical History History of adenoidectomy History of aortic valve replacement with bioprosthetic valve (~07/04/17) History of left heart catheterization (~04/2017) History of tonsillectomy Hx of cholecystectomy S/P mitral valve repair (07/04/17) Social History Smoking Status: Never smoker alcohol intake: never substance use type: does not use caffeine: Yes Type: coffee Number of servings: 2 what type of physical activity do you participate in: other details: PT frequency: daily duration: 15-30 minutes/day seatbelt use: always do you feel safe at home: Yes ROS ROS ED ROS Narrative Constitutional: No fever, no chills. HEENT: No sore throat. No neck pain. No loss of vision. No rhinorrhea. Cardiovascular: No chest pain. No palpitations. No pedal edema. Respiratory: No cough, no shortness of breath. Abdominal: No abdominal pain. No nausea. No vomiting. Genitourinary: No dysuria. No hematuria. Musculoskeletal: No myalgias. No arthralgias. Neurologic: No headaches. No dizziness. No lightheadedness. Skin: No rash. No change in color. Abrasion to left elbow with mild tenderness. Psychiatric: No depression. No anxiety. EXAM Physical Exam Narrative Exam Narrative: Afebrile. Vital signs noted. HEENT: Normocephalic. Atraumatic. PERRL, EOMI. Neck soft and supple. No point tenderness or step off. Cardiovascular: Regular rate and rhythm. No murmurs, rubs, or gallops appreciated. Respiratory: No tachypnea. Lungs clear to auscultation bilaterally. Gastrointestinal: Abdomen soft, nontender, with normoactive bowel sounds. No rebound or guarding. Neurological: Awake. Alert. Nonfocal, nonlateralizing. Skin: No rash. Normal color. No pallor. Abrasion to left elbow, no active bleeding. Full range of motion including pronation and supination. Mild tenderness diffusely proximal forearm around area of skin tear/abrasion. Musculoskeletal: No pedal edema. Full range of motion extremities. Const Vital Signs: 09/07/22 11:23 09/07/22 11:31 Temperature 97.5 F L Temperature Source Temporal Pulse Rate 87 Respiratory Rate 16 Respiratory Effort Normal Blood Pressure 142/96 H Blood Pressure Mean 111 Pulse Ox 97 Oxygen Delivery Method Room Air MDM MDM MDM Narrative Medical decision making narrative: He had no loss of consciousness, I do feel that CT of the brain is indicated to rule out skull fracture or acute hemorrhage. X-rays of the left elbow will be obtained. He will be given a Boostrix immunization and his wound will be cleansed and dressed. I reviewed the x-rays of the elbow and 3 views and interpreted them as no evidence of fracture. I reviewed the radiology report which confirms this. Additionally, I reviewed the CT imaging of the brain, and reviewed the radiology report which shows no evidence of acute hemorrhage or skull fracture. At this point in time, I feel he can be discharged safely home with follow-up. Return instructions to the emergency department were reviewed. Disposition is discharged home in stable condition. History & Record Review Discussion w/independent historian: Patient Additional record(s) reviewed:: Prior ED visit Radiography Diagnostic Testing: Clinical Impression(s) from Imaging Studies Brain CT 09/07/22 12:07 IMPRESSION: Chronic involutional changes of the brain. Electronically Signed: Davie Scott MD at 12:42 EDT , Elbow X-Ray 09/07/22 12:16 IMPRESSION: Normal x-ray examination of the elbow. Electronically Signed: Davie Scott MD at 12:42 EDT , Discharge Plan Triage Chief Complaint: Fall ED Provider: Charly Mejia Dx/Rx/DC Orders Clinical Impression: Fall, Contusion of elbow, left, Abrasion, Closed head injury Instructions: ED Abrasion, ED Contusion, Elbow, ED Head Injury (Adult) Prescriptions: No Action polysaccharide iron complex [Ferrex 150] 150 mg iron capsule 150 mg PO DAILY Rx Instructions: avoid dairy/calcium-containing products and/or antacids for at least 2 hrs before and after dose fluticasone propionate [Allergy Relief (fluticasone)] 50 mcg/actuation spray,suspension 2 spray intranasal DAILY Rx Instructions: administer into each nostril losartan 25 mg tablet 25 mg PO DAILY Qty: 30 12RF (DME) handicap placcard See Rx Instructions .Route .MEDSUPPLY Qty: 1 0RF Rx Instructions: dx: Debility Lifetime ascorbic acid (vitamin C) [Vitamin C] 500 mg Tablet 500 mg PO DAILY mv,Ca,min-iron [id number] 14-200-90 mg-mcg-mg Tablet 1 tab PO DAILY albuterol sulfate 90 mcg/actuation HFA aerosol inhaler 2 puff inhalation Q6H PRN (Reason: shortness of breath or wheezing) Qty: 6.7 0RF carvedilol 3.125 mg tablet 3.125 mg PO BID 30 Days Qty: 60 11RF Primary Care Provider: Dusty Almanza Referrals: Dusty Almanza MD [Primary Care Provider] - 1 Week if not improving Disposition Disposition: Home, Self Care Discharge Date/Time: 09/07/22 13:16
[2022-09-07] MEDS: Diphth,Pertuss(Acell),Tet Vac 0.5 ML Vial IM (12:59)
== END 2022-09-07 13:16 | disposition home or self-care (01) ==
PROVIDERS: Emergency Provider Emergency Medicine; PCP Family Medicine; Visit Provider Emergency Medicine
DX: S50.02XA Contusion of left elbow, initial encounter (principal); N18.30 Chronic kidney disease, stage 3 unspecified; S50.312A Abrasion of left elbow, initial encounter; S09.90XA Unspecified injury of head, initial encounter; Z23 Encounter for immunization; W19.XXXA Unspecified fall, initial encounter
CPT/HCPCS: 70450; 73080; 90471; 90715; 99282

== ENCOUNTER → 2022-09-21 | Outpatient (CLI) | payer MEDICARE, SELFPAY ==
[2022-09-21 13:03] VITALS: PULSE 100; PULSE 102; PULSE 104; PULSE 82; PULSE 86; PULSE 95; PULSE 97; O2SAT 88; O2SAT 91; O2SAT 93; O2SAT 94; O2SAT 95; O2SAT 96
--- NOTE | 2022-09-21 13:10 | CPS ---
Patient brought his tank from home and he wears 3 lpm pulse dose oxygen. While sitting on room air lowest SpO2 95%. Started walk on room air, patient walked 120 feet in the first minute and 20 seconds, he then wanted to rest, SpO2 91%. While patient sat for the next forty seconds SpO2 continued to drop to 88 and then 85%. Placed patient on his 3 lpm O2, recovered SpO2 96%. Patient then walked the remaining 3 and a half minutes on 3 lpm pulse dose and SpO2 remained greater than 91% with one break.
--- NOTE | 2022-09-22 10:42 | PCM.PSN.6M ---
PSN 6 Minute Walk Test 6 Minute Walk Test 6 Minute Walk Test: 6 Minute Walk Test PSN:6-Minute Walk Test Start: 09/21/22 13:02 Freq: Status: Active Protocol: [id number].6MINW Document 09/21/22 13:03 CAPRICE (Rec: 09/21/22 13:17 CAPRICE [id number]) 6 Minute Walk Test Date Performed 09/21/22 Time Performed 12:30 Height 5 ft 4 in Weight: 170 lb Weight in Pounds 170.[address]: Xavier Mckeon Assistive device used: Cane Pre-test Oxygen Delivery Method Room Air Pulse Ox (%) 95 Pulse Rate (60-100 beats/min) 86 Dyspnea Rhianna Scale (0-10) 0 Exertion Rhianna Scale (6-20) 6 1st minute Oxygen Delivery Method Room Air Pulse Ox (%) 91 Pulse Rate (60-100 beats/min) 97 2nd minute Oxygen Delivery Method Room Air Pulse Ox (%) 88 Pulse Rate (60-100 beats/min) 100 Number of Rests Taken 1 3rd minute Oxygen Flow Rate (L/min) (L/min) 3 Oxygen Delivery Method Nasal Cannula Pulse Ox (%) 94 Pulse Rate (60-100 beats/min) 95 4th minute Oxygen Flow Rate (L/min) (L/min) 3 Oxygen Delivery Method Nasal Cannula Pulse Ox (%) 93 Pulse Rate (60-100 beats/min) 102 H 5th minute Oxygen Flow Rate (L/min) (L/min) 3 Oxygen Delivery Method Nasal Cannula Pulse Ox (%) 91 Pulse Rate (60-100 beats/min) 104 H Number of Rests Taken 1 6th minute Oxygen Flow Rate (L/min) (L/min) 3 Oxygen Delivery Method Nasal Cannula Pulse Ox (%) 91 Pulse Rate (60-100 beats/min) 95 Post-test Oxygen Flow Rate (L/min) (L/min) 3 Oxygen Delivery Method Nasal Cannula Pulse Ox (%) 96 Pulse Rate (60-100 beats/min) 82 Full Laps Walked 7 Partial Lap, Number of Tiles Walked 0 Total Distance Walked (ft) 413 09/21/22 13:10 Cardiopulmonary Services by Mikala Enamorado Patient brought his tank from home and he wears 3 lpm pulse dose oxygen. While sitting on room air lowest SpO2 95%. Started walk on room air, patient walked 120 feet in the first minute and 20 seconds, he then wanted to rest, SpO2 91%. While patient sat for the next forty seconds SpO2 continued to drop to 88 and then 85%. Placed patient on his 3 lpm O2, recovered SpO2 96%. Patient then walked the remaining 3 and a half minutes on 3 lpm pulse dose and SpO2 remained greater than 91% with one break. Initialized on 09/21/22 13:10 - END OF NOTE Interpretation Interpretation: The patient ambulated 413 feet over the course of 6 minutes beginning on room air with the use of a cane. Pretesting oxygen saturation was noted to be 95% on room air. With ambulation, the andrews oxygen saturation was 88%. 3 L/min of pulsed dose supplemental oxygen was applied, and the patient was able to complete the remainder of the test while maintaining appropriate oxygen saturations. Recommendations Recommendations: 3 L/min of pulsed dose supplemental oxygen should be utilized with exertion.
== END | disposition home or self-care (01) ==
LOC: PSN 12:02
PROVIDERS: PCP Family Medicine; Referring Provider Internal Medicine Critical Care Medicine; Visit Provider Internal Medicine Critical Care Medicine
DX: I27.29 Other secondary pulmonary hypertension (principal)
CPT/HCPCS: 94618

== ENCOUNTER 2023-02-20 21:01 | Emergency (ER) | payer MEDICARE, SELFPAY ==
[2023-02-20 21:04] VITALS: BP 122/88; PULSE 84; RESP 18; TEMP 36.8; O2SAT 96; BMI 25.4
[2023-02-20 22:00] VITALS: BP 150/92; PULSE 76; RESP 22
--- NOTE | 2023-02-20 22:00 | EDS_ITS ---
HPI History of Present Illness Chief Complaint: Head Injury Informant: patient and spouse/S.O. Narrative Narrative: 82-year-old male going up the stairs in the garage into the kitchen when he fell backwards. He struck his head on the ground. Family notes head injury with laceration but no loss of conscious. Couple weeks ago he had another fall in which he injured his upper back and between his shoulder blades. He did not seek care and was getting better until tonight when now it is worse. He denies any radicular symptoms. He denies currently being on a blood thinner. Tetanus has been within the last 5 years. 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 Metabolic encephalopathy Mitral valve insufficiency Nonrheumatic aortic valve stenosis Nonrheumatic aortic valve stenosis with insufficiency Type 2 diabetes mellitus with hyperglycemia Home Medications polysaccharide iron complex 150 mg iron capsule (Ferrex) 150 mg PO DAILY 06/02/19 [History Last Taken 03/05/22] fluticasone propionate 50 mcg/actuation nasal spray,suspension (Allergy Relief (fluticasone)) 2 spray intranasal DAILY allergies 04/06/21 [History Last Taken 03/06/22] ascorbic acid (vitamin C) 500 mg tablet (Vitamin C) 500 mg PO DAILY supplement 03/06/22 [History Last Taken 03/05/22] multivit,Ca,min-iron fum-folic acid-bacill 14 mg-200 mcg-90 mg tablet 1 tab PO DAILY health maintenance 03/06/22 [History Last Taken 03/05/22] albuterol sulfate 90 mcg/actuation aerosol inhaler 2 puff inhalation Q6H PRN shortness of breath or wheezing #6.7 grams 03/09/22 [Rx Last Taken Unknown] handicap placcard #1 ea 04/11/22 [Rx Last Taken Unknown] losartan 25 mg tablet 25 mg PO DAILY #30 tabs 04/11/22 [Rx Last Taken Unknown] carvedilol 3.125 mg tablet 3.125 mg PO BID 30 days #60 tabs 06/14/22 [Rx Last Taken Unknown] albuterol sulfate 2.5 mg/3 mL (0.083 %) solution for nebulization 2.5 mg (3 mL) inhalation Q4H PRN Sob &/Or Wheezing #180 mL 09/25/22 [Rx Last Taken Unknown] budesonide 1 mg/2 mL suspension for nebulization 1 mg (2 mL) inhalation BID #60 mL 09/25/22 [Rx Last Taken Unknown] loratadine 10 mg tablet (Allergy Relief (loratadine)) 10 mg PO DAILY 09/25/22 [History Last Taken Unknown] Allergy/AdvReac Type Severity Reaction Status Date / Time No Known Allergies Allergy Verified 02/20/23 21:03 Family History Mother Hypertension Father Hypertension Surgical History History of adenoidectomy History of aortic valve replacement with bioprosthetic valve (~07/04/17) History of left heart catheterization (~04/2017) History of tonsillectomy Hx of cholecystectomy S/P mitral valve repair (07/04/17) Social History Smoking Status: Never smoker alcohol intake: never substance use type: does not use caffeine: Yes Type: coffee Number of servings: 2 what type of physical activity do you participate in: other details: PT frequency: daily duration: 15-30 minutes/day seatbelt use: always do you feel safe at home: Yes ROS ROS ED Constitutional Constitutional ED: Denies chills or weight loss Eyes Eyes: Denies change in vision or diplopia ENT ENT ED: Denies ear pain, rhinorrhea or sore throat Cardiovascular Cardiovascular: Denies chest pain, orthopnea, palpitations or racing heartbeat Respiratory/Chest Respiratory/Chest: Denies cough, dyspnea or orthopnea Gastrointestinal Gastrointestinal: Denies abdominal pain, diarrhea, nausea or vomiting Genitourinary Genitourinary ED: Denies dysuria, hematuria or urinary frequency Musculoskeletal Musculoskeletal: Reports back pain and neck pain; Denies arthralgias or myalgias Integumentary Reports other Details: Occipital scalp laceration ; Denies abscess or rash Neurologic Neurologic: Reports headache(s); Denies weakness Psychiatric Psychiatric: Denies anxiety, depression, suicidal ideation or suicidal thoughts Endocrine Endocrinology: Denies polydipsia, polyphagia or polyuria Allergic/Immunologic Allergic/Immunologic ED: Denies mouth swelling, tongue swelling or urticaria EXAM Physical Exam Const Vital Signs: 02/20/23 21:04 02/20/23 21:07 02/20/23 22:00 Temperature 98.3 F Temperature Source Oral Pulse Rate 84 76 Respiratory Rate 18 22 H Respiratory Effort Normal Non-Labored Respiratory Depth Normal Respiratory Pattern Normal Blood Pressure 122/88 H 150/92 H Blood Pressure Mean 99 109 Pulse Ox 96 Oxygen Delivery Method Nasal Cannula Oxygen Flow Rate (L/min) 3 02/20/23 23:00 Temperature Temperature Source Pulse Rate 83 Respiratory Rate 21 H Respiratory Effort Respiratory Depth Respiratory Pattern Blood Pressure 147/92 H Blood Pressure Mean 109 Pulse Ox Oxygen Delivery Method Oxygen Flow Rate (L/min) Positive well nourished and well developed General Appearance ED: well developed HEENT Reports normocephalic and moist mucous membranes HEENT Narrative: There is a 1.5 cm laceration in the left occipital scalp. No palpable bony depression. Eyes PERRL and EOMs intact bilaterally Neck no lymphadenopathy, supple and no JVD Neck Narrative: Generalized tenderness to palpation throughout the cervical spine/paraspinal musculature. General: tenderness Resp normal respiratory effort and clear to auscultation bilaterally Cardio regular rate, regular rhythm and no murmurs GI normal to inspection, nondistended, normoactive bowel sounds and non-tender Palpation: soft Back/Spine no CVA tenderness Back/Spine Narrative: Patient has very painful range of motion in between his shoulder blades he is tender to palpation. Thoracic Spine / Upper Back: thoracic spinal tenderness Extremity normal to inspection General Extremety ED: Negative for edema General Extremity: Negative for edema Neuro oriented x3 and CN's II-XII intact bilaterally Sensorium / Orientation: alert Motor Exam: strength 5/5 throughout Psych mental status grossly normal Mood & Affect: Negative for depressed or tearful Skin no rashes or lesions noted MDM MDM MDM Narrative Medical decision making narrative: CT of the head and cervical spine showed no acute findings. CT of the thoracic spine was obtained and does not demonstrate any acute fracture. Wound was locally anesthetized using 1% lidocaine. Was washed with Shur-Clens and explored. It was closed using 3 simple erupted 5-0 Ethilon sutures. Due to the patient's pain in his back and his inability to rotate his head it was difficult to get to the laceration without causing the patient discomfort. I gave him some oxycodone and Tylenol. This apparently caused the patient and intoxicated like feeling. Despite this the patient is able to ambulate with his walker quite steadily. I talked to the about letting him stay here for the night or go home and rest. She feels comfortable taking him home. Would recommend going to bed. Would recommend following up with primary care setting 10 days for suture removal and further evaluation. Radiography Diagnostic Testing: Clinical Impression(s) from Imaging Studies Brain CT 02/20/23 22:20 IMPRESSION: Chronic involutional changes of the brain. Electronically Signed: Wilian Jackson MD at 22:58 EDT , Cervical Spine CT 02/20/23 22:20 IMPRESSION: Multilevel degenerative changes, as described above. Electronically Signed: Wilian Jackson MD at 23:05 EDT , Thoracic Spine CT 02/20/23 22:20 IMPRESSION: Degenerative change. No fracture. Electronically Signed: Wilian Jackson MD at 23:15 EDT , Discharge Plan Triage Chief Complaint: Head Injury Other Complaint: Fall Laceration ED Provider: Asif Churchill Dx/Rx/DC Orders Clinical Impression: Medication side effect, Acute thoracic myofascial strain, Occipital scalp laceration, Acute midline thoracic back pain, Fall Instructions: ED Head Injury (Adult), ED Laceration: All Closures, ED Thoracic Spine Strain Prescriptions: No Action polysaccharide iron complex [Ferrex 150] 150 mg iron capsule 150 mg PO DAILY Rx Instructions: avoid dairy/calcium-containing products and/or antacids for at least 2 hrs before and after dose fluticasone propionate [Allergy Relief (fluticasone)] 50 mcg/actuation spray,suspension 2 spray intranasal DAILY Rx Instructions: administer into each nostril losartan 25 mg tablet 25 mg PO DAILY Qty: 30 12RF (DME) handicap placcard See Rx Instructions .Route .MEDSUPPLY Qty: 1 0RF Rx Instructions: dx: Debility Lifetime loratadine [Allergy Relief (loratadine)] 10 mg tablet 10 mg PO DAILY albuterol sulfate 2.5 mg /3 mL (0.083 %) solution for nebulization 2.5 mg inhalation Q4H PRN (Reason: Sob &/Or Wheezing) Qty: 180 6RF budesonide 1 mg/2 mL suspension for nebulization 1 mg inhalation BID Qty: 60 6RF ascorbic acid (vitamin C) [Vitamin C] 500 mg Tablet 500 mg PO DAILY mv,Ca,min-iron [id number] 14-200-90 mg-mcg-mg Tablet 1 tab PO DAILY albuterol sulfate 90 mcg/actuation HFA aerosol inhaler 2 puff inhalation Q6H PRN (Reason: shortness of breath or wheezing) Qty: 6.7 0RF carvedilol 3.125 mg tablet 3.125 mg PO BID 30 Days Qty: 60 11RF Primary Care Provider: Dusty Almanza Referrals: Dusty Almanza MD [Primary Care Provider] - 7 Days for suture removal Disposition Disposition: Home, Self Care
--- NOTE | 2023-02-20 22:20 | CT_ITS ---
STUDY: CT CERVICAL SPINE WITHOUT CONTRAST REASON FOR EXAM: Male, 82 years old. Trauma RADIATION DOSAGE (If Supplied By Facility): CTDIvol = ( 20.11 ) mGy, DLP = ( 415.51 ) mGycm TECHNIQUE: High resolution transaxial imaging was performed without contrast material. Sagittal and coronal images were reconstructed. Individualized dose optimization techniques were used for this CT. COMPARISON: None FINDINGS: Normal craniovertebral junction. Normal anterior atlantoaxial articulation. Normal odontoid process. Normal cervical lordosis. Normal vertebral bodies and posterior osseous elements. C2-3: Normal endplates. Normal disc height and morphology. Facet spurring on the right more than the left. Normal central canal and intervertebral neuroforamina. C3-4: Spurring to the left. Facet spurring on the left. No canal stenosis. Left foraminal narrowing. C4-5: Mild spurring. Facet spurring. No canal stenosis. Left greater than right foraminal narrowing. C5-6: Disc space narrowing. Mild spurring. Facet spurring. Mild canal stenosis. Right greater than left foraminal narrowing. C6-7: Spurring and left paracentral disc protrusion. Facet spurring. No canal stenosis. Mild foraminal narrowing. C7-T1: Normal endplates. Normal disc height and morphology. Mild facet spurring. Normal central canal and intervertebral neuroforamina. Normal visualized soft tissue structures. CT/Spine Cervical without Contras IMPRESSION: Multilevel degenerative changes, as described above. Electronically Signed: Wilian Jackson MD at 23:05 EDT ,
--- NOTE | 2023-02-20 22:20 | CT_ITS ---
STUDY: CT THORACIC SPINE WITHOUT CONTRAST REASON FOR EXAM: Male, 82 years old. Trauma RADIATION DOSAGE (If Supplied By Facility): CTDIvol = ( 23.52 ) mGy, DLP = ( 1030.08 ) mGycm TECHNIQUE: The patient was scanned in a multi detector CT scanner. High resolution imaging was performed. Images were obtained from C7 to L1. Sagittal and coronal images were reconstructed. Individualized dose optimization techniques were used for this CT. COMPARISON: None. FINDINGS: Normal visualized cervical spine. Normal kyphosis of the thoracic spine. There is no substantial scoliosis. There is no demonstrated fracture or compression deformity of the thoracic vertebrae. There is multilevel degenerative disc disease with loss of the disc space heights. The soft tissue structures are unremarkable. CT/Spine Thoracic without Contras IMPRESSION: Degenerative change. No fracture. Electronically Signed: Wilian Jackson MD at 23:15 EDT ,
--- NOTE | 2023-02-20 22:20 | CT_ITS ---
STUDY: CT BRAIN WITHOUT CONTRAST REASON FOR EXAM: Male, 82 years old. Trauma RADIATION DOSAGE (If Supplied By Facility): CTDIvol = ( 44.99 ) mGy, DLP = ( 829.85 ) mGycm TECHNIQUE: Transaxial CT imaging of the brain was performed without administration of intravenous contrast material. Individualized dose optimization techniques were used for this CT. COMPARISON: September 07, 2022 FINDINGS: Normal soft tissue structures. Normal calvarium. There is mild cerebral atrophy with widening of the extra-axial spaces and ventricular dilatation. Normal white matter tracts of the cerebral hemispheres. Normal basal ganglia and thalami. Normal brainstem. Normal cerebellum. There is no intracranial hemorrhage. There are no findings of an acute ischemic infarction. Normal visualized paranasal sinuses. CT/Brain/Head without Contrast IMPRESSION: Chronic involutional changes of the brain. Electronically Signed: Wilian Jackson MD at 22:58 EDT ,
[2023-02-20] MEDS: Acetaminophen 500 MG Tablet 1000 MG PO (22:25)
[2023-02-20] MEDS: oxyCODONE 5 MG Tablet PO (22:25)
[2023-02-20] MEDS: Lidocaine 1% (20 ml mdv) 20 ML Vial INFILT (22:26)
[2023-02-20 23:00] VITALS: BP 147/92; PULSE 83; RESP 21
== END 2023-02-21 00:28 | disposition home or self-care (01) ==
PROVIDERS: Emergency Provider Emergency Medicine; PCP Family Medicine; Visit Provider Emergency Medicine
DX: S29.019A Strain of muscle and tendon of unspecified wall of thorax, initial encounter (principal); I43 Cardiomyopathy in diseases classified elsewhere; N18.30 Chronic kidney disease, stage 3 unspecified; S01.01XA Laceration without foreign body of scalp, initial encounter; M54.6 Pain in thoracic spine; I12.9 Hypertensive chronic kidney disease with stage 1 through stage 4 chronic kidney disease, or unspecified chronic kidney disease; W10.9XXA Fall (on) (from) unspecified stairs and steps, initial encounter; Z79.899 Other long term (current) drug therapy
CPT/HCPCS: 12001; 70450; 72125; 72128; 99285

== ENCOUNTER 2023-03-22 16:17 | Inpatient (IN) | payer MEDICARE, SELFPAY ==
[2023-03-22] VITALS (11 sets, daily range): BP systolic 98–115; BP diastolic 58–99; PULSE 77–92; RESP 18–26; TEMP 36.4–37.5; O2SAT 93–100; BMI 24.7; BMI 25.5
--- NOTE | 2023-03-22 16:42 | RAD_ITS ---
STUDY: X-RAY CHEST REASON FOR EXAM: Male, 82 years old. Weakness TECHNIQUE: Single AP portable view of the chest. COMPARISON: 06/13/2022 FINDINGS: EKG leads overlie the chest The lungs are clear and expanded. There is no demonstrated pleural abnormality. Sternal cerclage wires and vascular clips are present from a prior sternotomy and coronary artery bypass graft procedure (CABG). Normal mediastinum and chris. Normal visualized pulmonary arteries. There is atherosclerotic calcification of the aortic arch with tortuosity. There are diffuse degenerative changes of the visualized thoracic spine. Normal visualized ribs, clavicles, and shoulders. There is no demonstrated abnormality of the visualized soft tissue structures of the upper abdomen. RAD/Chest 1 View (Portable) IMPRESSION: No acute pulmonary process Electronically Signed: Nathaniel Sow MD at 17:28 EDT ,
--- NOTE | 2023-03-22 16:43 | EKG12_ITS ---
Test Reason : WEAKNESS Blood Pressure : / mmHG Vent. Rate : 088 BPM Atrial Rate : 000 BPM P-R Int : 000 ms QRS Dur : 100 ms QT Int : 374 ms P-R-T Axes : 000 -36 088 degrees QTc Int : 452 ms Atrial fibrillation with premature ventricular or aberrantly conducted complexes Left axis deviation Minimal voltage criteria for LVH, may be normal variant ( [place] product ) Abnormal ECG Confirmed by RORY CEDENO, TONIA ([id number]), whipped topping supervisor JESU MYERS ([id number]) on 03/27/2023 12:52:22 PM Referred By: Confirmed By:AMADOU VALADEZ MD
[2023-03-22 17:06] LABS: Mucous, Urine 0 SEEN /hpf (<or=2+); Squamous Epithelial Cells - UA 0 SEEN /hpf (0-5); White Blood Cells 0 SEEN /hpf (0-5)
[2023-03-22 17:11] LABS: Absolute Lymphocyte Count 0.52 X10^3/uL (0.83-4.51); Absolute Neutrophil Count 23.2 X10^3/uL (2.0-7.7); Basophil# 0.04 X10^3/uL; Basophil% 0.1 % (0-1); Eosinophil# 0.03 X10^3/uL; Eosinophils% 0.1 % (0-5); Hematocrit 36.8 % (40-54); Hemoglobin 11.3 g/dL (13.0-16.5); Lymphocyte # 0.52 X10^3/ul (0.83-4.51); Lymphocyte % 1.8 % (19-41); Mean Corp Hgb Conc 30.7 g/dL (32-36); Mean Corpuscular Hgb 34.8 pg (27.0-32.0); Mean Corpuscular Volume 113.2 fL (80-94); Mean Platelet Vol. 12.9 fl (6.2-12.0); Monocyte# 4.21 X10^3/uL; Monocyte% 14.6 % (0-10); NRBC Flagged by Analyzer 0 % (0-5); Neutrophil # 23.24 X10^3/uL (2.7-7.7); Neutrophil % 80.6 % (47-70); POSITIVE DIFFERENTIAL YES; POSITIVE MORPHOLOGY YES; Platelet Count 154 K/mm3 (150-450); RBC Distribution Width CV 15.6 % (11.6-14.6); RBC Distribution Width SD 65.4 fl (35.1-43.9); Red Blood Count 3.25 M/mm3 (4.6-6.2); White Blood Count 28.9 K/mm3 (4.4-11.0)
--- NOTE | 2023-03-22 17:12 | CT_ITS ---
STUDY: CT BRAIN WITHOUT CONTRAST REASON FOR EXAM: Male, 82 years old. Altered mental status RADIATION DOSAGE (If Supplied By Facility): CTDIvol = ( 44.99 ) mGy, DLP = ( 779.24 ) mGycm TECHNIQUE: Transaxial CT imaging of the brain was performed without administration of intravenous contrast material. Individualized dose optimization techniques were used for this CT. COMPARISON: 02/20/2023 FINDINGS: Normal soft tissue structures. Normal calvarium. Normal size ventricles and extra-axial spaces for the patient''s age. Normal white matter tracts of the cerebral hemispheres. Normal basal ganglia and thalami. Normal brainstem. Normal cerebellum. There is no intracranial hemorrhage. There are no findings of an acute ischemic infarction. Normal visualized paranasal sinuses. CT/Brain/Head without Contrast IMPRESSION: Chronic involutional changes of the brain. No acute hemorrhage, no interval change Electronically Signed: Nathaniel Sow MD at 17:29 EDT ,
[2023-03-22 17:17] LABS: Differential Indicated SCAN CRITERIA MET
[2023-03-22 17:17] LABS: Color, Urine Yellow (Yellow); Glucose, Dipstick 1000 mg/dl (Normal); Ketone-Dipstick 15 mg/dl (Negative); Leukocyte Esterase-Dipstick Negative /ul (Negative); Nitrite-Dipstick Negative (Negative); Occult Blood-Urine 25 /ul (Negative); Protein-Dipstick 100 mg/dl (Negative); Specific Gravity, Urine 1.015 (1.002-1.030); Urine Bilirubin Dipstick Negative (Negative); Urine Clarity Clear (Clear); Urine Urobilinogen 1 mg/dl (Normal)
[2023-03-22 17:37] LABS: BNP,B-Type NATRIURETIC PEPTIDE 474.6 pg/mL (0-100)
[2023-03-22 17:42] LABS: Bacteria RARE /hpf (None Seen); Red Blood Cells-Urine 0-5 SEEN /hpf (0-5)
[2023-03-22 17:43] LABS: Amorphous Sediment 1+
[2023-03-22 17:46] LABS: Anisocytosis 2+; Differential Comment SEE COMMENTS; Macrocytosis 2+; Platelet Estimate ADEQUATE (ADEQ); Red Cell Morphology N CHROM NORMAL (NORM C&C)
[2023-03-22] MEDS: 0.9% Normal Saline (1000mL) 1,000 ML 999 ML IV ×2 (17:47→20:10)
[2023-03-22 17:52] LABS: ALB/GLOB Ratio 0.5 RATIO (0.9-2.4); AST(SGOT) 6 U/L (15-37); Alanine Aminotransfer ALT/SGPT 12 U/L (16-61); Albumin, Serum 2.6 g/dL (3.2-5.0); Alkaline Phosphatase 112 U/L (45-117); Anion Gap 16 (5-15); BUN 61 mg/dL (7-18); BUN/Creat Ratio 22.8 RATIO (10-20); Calcium,Total 9.5 mg/dL (8.5-10.1); Chloride 100 mmol/L (98-107); Creatinine, Serum 2.67 mg/dL (0.70-1.30); EST Glomerular Filtration Rate 25 mL/min (>60); Est Glom Filt Rate - Afr Amer 30 mL/min (>60); Estimated Creatinine Clearance 19.91 ml/min; Glucose 797 mg/dL (74-106); Potassium 4.1 mmol/L (3.5-5.1); Protein, Total 7.6 g/dL (6.4-8.2); Sodium Level 137 mmol/L (136-145); Troponin-I HS 97 pg/mL (3.0-78.0)
--- NOTE | 2023-03-22 17:55 | CT_ITS ---
STUDY: CT CHEST, ABDOMEN T PELVIS WITHOUT CONTRAST REASON FOR EXAM: Male, 82 years old. Diffuse abdominal pain weakness RADIATION DOSAGE (If Supplied By Facility): CTDIvol = ( 8.57 ) mGy, DLP = ( 763.97 ) mGycm TECHNIQUE: Transaxial imaging was performed without the administration of intravenous contrast material. Individualized dose optimization techniques were used for this CT. COMPARISON: CT chest from 03/06/2022 FINDINGS: CHEST Lung windows show interstitial edema in both lung connelly suggesting pulmonary vascular congestion. No organized infiltrate, there is a loculated right pleural effusion with associated atelectasis. Nonspecific pleural thickening noted in both hemithoraces. There has been a remote CABG and there is cardiomegaly. There is aneurysmal dilatation of the ascending thoracic aorta at 4.65 cm No suspicious axillary, mediastinal or perihilar lymph nodes. There are likely reactive mediastinal lymph nodes measuring up to 1 cm in short axis dimension. Normal unenhanced pulmonary arteries. Normal osseous structures. ABDOMEN Normal liver. There are surgical clips in the gallbladder fossa consistent with a prior cholecystectomy. Normal spleen. Normal pancreas. Normal bilateral adrenal glands. No obstructive uropathy noted, there are simple right renal cysts and a likely hyperdense exophytic cyst in the upper pole of the right kidney but without IV contrast this cannot be further characterized, it measures 29 Hounsfield units. This could be further evaluated with ultrasound or with a contrasted study. There is a simple 1 cm cyst in the lower pole of the left kidney There is a small hiatal hernia. Nondistended fluid-filled small bowel loops are noted consistent with ileus. Retained stool noted in the colon. The appendix is visualized and appears normal. Appendix seen on coronal recon images 46 through 50 There is diffuse atherosclerotic calcification of the abdominal aorta, without a demonstrated aneurysm. Normal inferior vena cava. Normal retroperitoneum. Normal abdominal wall. There are diffuse degenerative changes of the visualized lumbar spine, and pelvis. PELVIS Normal urinary bladder. There is no pelvic fluid. There is no pelvic lymphadenopathy or mass lesion. There is diffuse atherosclerotic calcification of the pelvic arteries. CT/CT Chest, Abd, Pelvis WO Cont IMPRESSION: Chronic interstitial changes in both lung connelly with interstitial edema, and a loculated right pleural effusion with associated atelectasis. 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 Consider short-term follow-up or additional imaging with ultrasound or contrasted study Small bowel ileus Retained stool in the colon Degenerative bony changes Electronically Signed: Nathaniel Sow MD at 19:08 EDT ,
--- NOTE | 2023-03-22 18:35 | EX.ED.DYSGE1 ---
HPI History of Present Illness Chief Complaint: Weakness Narrative Narrative: 82-year-old male presenting with weakness, falls, cough. His states that he has been having this problem for over a month. She has not taken him to his primary care physician. She states she always thinks it is bronchitis when he gets this way. He has not been on any medications. He has decreased p.o. intake. She does not believe he had a fever at home but does not have a thermometer. Patient is a poor informant and he is hard of hearing. 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 Metabolic encephalopathy Mitral valve insufficiency Nonrheumatic aortic valve stenosis Nonrheumatic aortic valve stenosis with insufficiency Type 2 diabetes mellitus with hyperglycemia Home Medications polysaccharide iron complex 150 mg iron capsule (Ferrex) 150 mg PO DAILY 06/02/19 [History Last Taken 03/05/22] fluticasone propionate 50 mcg/actuation nasal spray,suspension (Allergy Relief (fluticasone)) 2 spray intranasal DAILY allergies 04/06/21 [History Last Taken 03/06/22] ascorbic acid (vitamin C) 500 mg tablet (Vitamin C) 500 mg PO DAILY supplement 03/06/22 [History Last Taken 03/05/22] multivit,Ca,min-iron fum-folic acid-bacill 14 mg-200 mcg-90 mg tablet 1 tab PO DAILY health maintenance 03/06/22 [History Last Taken 03/05/22] albuterol sulfate 90 mcg/actuation aerosol inhaler 2 puff inhalation Q6H PRN shortness of breath or wheezing #6.7 grams 03/09/22 [Rx Last Taken Unknown] handicap placcard #1 ea 04/11/22 [Rx Last Taken Unknown] losartan 25 mg tablet 25 mg PO DAILY #30 tabs 04/11/22 [Rx Last Taken Unknown] carvedilol 3.125 mg tablet 3.125 mg PO BID 30 days #60 tabs 06/14/22 [Rx Last Taken Unknown] albuterol sulfate 2.5 mg/3 mL (0.083 %) solution for nebulization 2.5 mg (3 mL) inhalation Q4H PRN Sob &/Or Wheezing #180 mL 09/25/22 [Rx Last Taken Unknown] budesonide 1 mg/2 mL suspension for nebulization 1 mg (2 mL) inhalation BID #60 mL 09/25/22 [Rx Last Taken Unknown] azithromycin 250 mg tablet See Rx Instructions PO .COMPLEX #6 tabs 02/28/23 [Rx Last Taken Unknown] loratadine 10 mg tablet (Allergy Relief (loratadine)) 10 mg PO DAILY #90 tabs 02/28/23 [Rx Last Taken Unknown] Allergy/AdvReac Type Severity Reaction Status Date / Time No Known Allergies Allergy Verified 03/22/23 16:19 Family History Mother Hypertension Father Hypertension Surgical History History of adenoidectomy History of aortic valve replacement with bioprosthetic valve (~07/04/17) History of left heart catheterization (~04/2017) History of tonsillectomy Hx of cholecystectomy S/P mitral valve repair (07/04/17) Social History Smoking Status: Never smoker alcohol intake: never substance use type: does not use caffeine: Yes Type: coffee Number of servings: 2 what type of physical activity do you participate in: other details: PT frequency: daily duration: 15-30 minutes/day seatbelt use: always do you feel safe at home: Yes EXAM Physical Exam Const Vital Signs: 03/22/23 16:21 03/22/23 16:18 Temperature 97.6 F L Temperature Source Temporal Pulse Rate 92 Respiratory Rate 18 Respiratory Effort Normal Respiratory Pattern Normal Blood Pressure 105/72 Blood Pressure Mean 83 Pulse Ox 93 Oxygen Delivery Method Nasal Cannula Oxygen Flow Rate (L/min) 2 Positive well nourished General Appearance ED: NAD HEENT Reports moist mucous membranes Eyes PERRL and EOMs intact bilaterally Neck no lymphadenopathy Chest Wall inspection of chest normal Resp normal respiratory effort and clear to auscultation bilaterally Auscultation: Negative for rales, rhonchi or wheezes Cardio regular rate and regular rhythm GI normal to inspection, nondistended, normoactive bowel sounds Neuro CN's II-XII intact bilaterally Sensorium / Orientation: alert Motor Exam: strength 5/5 throughout Psych mental status grossly normal Skin no rashes or lesions noted MDM MDM MDM Narrative Medical decision making narrative: 82-year-old male is a poor informant presenting with weakness, debility, falls. He is having difficulty getting around but his states he has been able to the bathroom. She states that it takes him a long time to get up and get moving. Differential includes acute coronary syndrome, CHF, COPD, COVID, influenza, dehydration, anemia, electrolyte abnormalities, UTI, CHF, hyperglycemia, pneumonia, intracranial hemorrhage, concussion. CBC was obtained to assess white blood cell count, hemoglobin, platelets. CMP to assess liver function, renal function, electrolytes, glucose. High-sensitivity troponin and EKG to assess for ischemia/dysrhythmia. BNP to assess for CHF. Chest x-ray to rule out pneumonia. CT brain was obtained and shows no acute process. Chest x-ray on my interpretation that there is a right-sided infiltrate however radiology does not agree and states that there is no nothing acute. CBC shows a leukocytosis of 28.9. Hemoglobin 11.3. Platelets 154. Glucose is 797. Patient has a slight anion gap of 16. Creatinine is elevated at 2.67. Patient was given IV fluids. Total bilirubin elevated 1.7, AST and ALT are normal/low. High-sensitivity troponin came back at 97. EKG on my interpretation shows A-fib with controlled ventricular response 88 bpm. Urinalysis is negative for infection. Given that the patient has a leukocytosis and no obvious source I sent the patient for CT chest abdomen pelvis without contrast due to his creatinine. BNP came back at 474. CT of the chest abdomen pelvis shows a loculated right pleural effusion. Patient started with vancomycin and Zosyn. He is given a second liter of fluids. I discussed with the hospitalist who recommends ICU and will likely do his insulin drip for his high glucose. Hospitalist asked me to speak with Dr. Randolph about the patient and he recommended admitting him to the ICU as well. He did not think he need to be transferred. All findings were discussed with the patient and family and they are amenable. Impression: 1. Weakness 2. Falls 3. Closed head injury 4. Loculated pleural effusion 5. Leukocytosis 6. Acute kidney injury 7. Hyperglycemia Lab Data Attestation: I reviewed the patient's lab results. Labs: Laboratory Results - last 24 hr 03/22/23 03/22/23 16:27 16:40 WBC 28.9 H RBC 3.25 L Hgb 11.3 L Hct 36.8 L MCV 113.2 H MCH 34.8 H MCHC 30.7 L RDW Std Deviation 65.4 H RDW Coeff of Merry 15.6 H Plt Count 154 MPV 12.9 H Immature Gran % (Auto) 2.800 H Neut % (Auto) 80.6 H Lymph % (Auto) 1.8 L [place] % (Auto) 14.6 H Eos % (Auto) 0.1 Baso % (Auto) 0.1 Absolute Neuts (auto) 23.2 H Absolute Lymphs (auto) 0.52 L Nucleated RBC % 0 Differential Comment SEE COMMENTS Diff Path Review May foll Platelet Estimate ADEQUATE RBC Morphology N CHROM Anisocytosis 2+ Macrocytosis 2+ Sodium 137 Potassium 4.1 Chloride 100 Carbon Dioxide 21.0 Anion Gap 16 H BUN 61 H Creatinine 2.67 H Estim Creat Clear Calc 19.91 Est GFR (MDRD) Af Amer 30 L Est GFR (MDRD) Non-Af 25 L BUN/Creatinine Ratio 22.8 H Glucose 797 H* Calcium 9.5 Total Bilirubin 1.70 H AST 6 L ALT 12 L Alkaline Phosphatase 112 Troponin I High Sens 97 H B-Natriuretic Peptide 474.6 H Total Protein 7.6 Albumin 2.6 L Globulin 5.0 H Albumin/Globulin Ratio 0.5 L Urine Color Yellow Urine Clarity Clear Urine pH 6.0 Ur Specific Rake 1.015 Urine Protein 100 H Urine Glucose (UA) 1000 H Urine Ketones 15 H Urine Occult Blood 25 H Urine Nitrite Negative Urine Bilirubin Negative Urine Urobilinogen 1 H Ur Leukocyte Esterase Negative Urine RBC 0-5 SEEN Urine WBC 0 SEEN Ur Squamous Epith Cells 0 SEEN Amorphous Sediment 1+ Urine Bacteria RARE Urine Mucus 0 SEEN Radiography Diagnostic Testing: Clinical Impression(s) from Imaging Studies Chest X-Ray 03/22/23 16:42 IMPRESSION: No acute pulmonary process Electronically Signed: Nathaniel Sow MD at 17:28 EDT Reading Location ID and State: [facility] / [place] , Service support , Brain CT 03/22/23 17:12 IMPRESSION: Chronic involutional changes of the brain. No acute hemorrhage, no interval change Electronically Signed: Nathaniel Sow MD at 17:29 EDT , Chest/Abdomen/Pelvis CT 03/22/23 17:55 IMPRESSION: Chronic interstitial changes in both lung connelly with interstitial edema, and a loculated right pleural effusion with associated atelectasis. 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 Consider short-term follow-up or additional imaging with ultrasound or contrasted study Small bowel ileus Retained stool in the colon Degenerative bony changes Electronically Signed: Nathaniel Sow MD at 19:08 EDT , Discharge Plan Disposition Disposition: Acute Care Hospital [facility] Discharge Date/Time: 03/22/23 20:27
--- NOTE | 2023-03-22 19:59 | PCM.HP.STD ---
[facility] - General General Date of Admission: 03/22/23 Date of Service: 03/22/23 Chief Complaint: Has been sick for 2 to 3 weeks. Cough, sputum production, mild shortness of breath. HPI Narrative GILBERTO DE LEÓN, is a 82 M who presents, has been brought by EMS for being sick for 2 to 3 weeks. As per the patient has been having cough, productive sputum mainly thick yellowish sputum [place] along with generalized weakness for 2 to 3 weeks. Patient has reduced activity with only going to bathroom with loss of appetite. Patient denies fever or chills but has not measured temperature at home. Denies chest pain or pressure or tightness. Patient has multiple comorbidities including pulmonary hypertension with PFT showing isolated defect in diffusion capacity, bioprosthetic aortic valve replacement and mitral valve repair. Patient was last admitted for pneumonia in March 2022. At that time COVID was negative. During last pulmonary clinic visit in February 2023, treated with GI pack for cough clearish sputum and mentioned asthma exacerbation probably from acute bronchitis the diagnosis. Patient is very hard of hearing and poor communicator therefore history mainly taken from his EMS vitals shows BP 103/70 on lower side heart rate 60/min. In ED, chest x-ray was done 1 view shows faint infiltrates that marking in right middle lobe. Patient looks ill therefore CT chest abdomen pelvis was done. Imaging individually reviewed loculated right pleural effusion with associated atelectasis. No suspicious axillary mediastinal or perihilar lymphadenopathy. Patient is a non-smoker. Labs, EKG and imaging individually reviewed and discussed in the assessment plan. Patient blood work also consistent with DKA with increased creatinine therefore IV fluid normal saline was given. Patient started on insulin drip, IV antibiotics and further admitted in ICU [facility] Medical History Accelerated junctional rhythm Acute on chronic combined systolic (congestive) and diastolic (congestive) heart failure Acute respiratory failure with hypercapnia Cardiomyopathy in disease classified elsewhere Chronic kidney disease CKD stage 3 due to type 2 diabetes mellitus Critical aortic valve stenosis Diabetes mellitus Hypertension care home current use of anticoagulant Metabolic encephalopathy Mitral valve insufficiency Nonrheumatic aortic valve stenosis Nonrheumatic aortic valve stenosis with insufficiency Type 2 diabetes mellitus with hyperglycemia Home Medications polysaccharide iron complex 150 mg iron capsule (Ferrex) 150 mg PO DAILY 06/02/19 [History Last Taken 03/05/22] fluticasone propionate 50 mcg/actuation nasal spray,suspension (Allergy Relief (fluticasone)) 2 spray intranasal DAILY allergies 04/06/21 [History Last Taken 03/06/22] ascorbic acid (vitamin C) 500 mg tablet (Vitamin C) 500 mg PO DAILY supplement 03/06/22 [History Last Taken 03/05/22] multivit,Ca,min-iron fum-folic acid-bacill 14 mg-200 mcg-90 mg tablet 1 tab PO DAILY health maintenance 03/06/22 [History Last Taken 03/05/22] albuterol sulfate 90 mcg/actuation aerosol inhaler 2 puff inhalation Q6H PRN shortness of breath or wheezing #6.7 grams 03/09/22 [Rx Last Taken Unknown] handicap placcard #1 ea 04/11/22 [Rx Last Taken Unknown] losartan 25 mg tablet 25 mg PO DAILY #30 tabs 04/11/22 [Rx Last Taken Unknown] carvedilol 3.125 mg tablet 3.125 mg PO BID 30 days #60 tabs 06/14/22 [Rx Last Taken Unknown] albuterol sulfate 2.5 mg/3 mL (0.083 %) solution for nebulization 2.5 mg (3 mL) inhalation Q4H PRN Sob &/Or Wheezing #180 mL 09/25/22 [Rx Last Taken Unknown] budesonide 1 mg/2 mL suspension for nebulization 1 mg (2 mL) inhalation BID #60 mL 09/25/22 [Rx Last Taken Unknown] azithromycin 250 mg tablet See Rx Instructions PO .COMPLEX #6 tabs 02/28/23 [Rx Last Taken Unknown] loratadine 10 mg tablet (Allergy Relief (loratadine)) 10 mg PO DAILY #90 tabs 02/28/23 [Rx Last Taken Unknown] Allergy/AdvReac Type Severity Reaction Status Date / Time No Known Allergies Allergy Verified 03/22/23 16:19 Family History Mother Hypertension Father Hypertension Surgical History History of adenoidectomy History of aortic valve replacement with bioprosthetic valve (~07/04/17) History of left heart catheterization (~04/2017) History of tonsillectomy Hx of cholecystectomy S/P mitral valve repair (07/04/17) Social History Smoking Status: Never smoker alcohol intake: never substance use type: does not use caffeine: Yes Type: coffee Number of servings: 2 what type of physical activity do you participate in: other details: PT frequency: daily duration: 15-30 minutes/day seatbelt use: always do you feel safe at home: Yes ROS ROS Narrative 14 system ROS limited because patient is very hard of hearing and does not remember well. It was mainly asked from his . Constitutional: Reports fatigue and weakness. Unclear about the fever HEENT: Bilateral hearing impairment. Reports systems reviewed and no addt'l complaints, except as documented Respiratory/Chest: As described in HPI CVS: No chest pain or pressure Gastrointestinal: Nausea. No vomiting. Denies coffee ground emesis, hematemesis or vomiting. Moving bowels every other day. Genitourinary: Patient required straight cath in ED. Denies burning urination or new urinary tract symptoms Musculoskeletal: On walker at home. Denies acute joint pain or limited range of motion. No acute injury Neurologic: Denies seizure-like symptoms. Possible MCI/early dementia. skin: No ulcer. No rash Endocrinology: Reports systems reviewed and no addt'l complaints, except as documented Hematologic/Lymphatic: Reports systems reviewed and no addt'l complaints, except as documented Rest 14 ROS are negative except as mentioned in HPI Vital Signs Vital Signs Vital Signs: 03/22/23 16:21 03/22/23 16:18 Temperature 97.6 F L Temperature Source Temporal Pulse Rate 92 Respiratory Rate 18 Respiratory Effort Normal Respiratory Pattern Normal Blood Pressure 105/72 Blood Pressure Mean 83 Pulse Ox 93 Oxygen Delivery Method Nasal Cannula Oxygen Flow Rate (L/min) 2 Weight Weight: 153 lb 0.013 oz Body Mass Index (BMI) 24.7 Physical Exam Narrative General: Alert, Oriented x3, Cooperative. Looks emaciated and sick. HEENT: Bilateral hearing impairment atraumatic, PERRLA, EOMI, Normocephalic Oral: Oral mucosa dry. No Gingival or Mucosal Lesions/ Ulcerations Neck: Supple, No JVD, Negative Carotid Bruits Lungs: Air entry diminished in bilateral lung predominantly in right lung base. No crepitation or wheezing. On oxygen. Cardiovascular: Regular rate, Regular Rhythm, Normal S1, Normal S2, No murmurs Abdomen: Bowel Sounds Present, Soft, Non Tender, Non-Distended : No renal angle tenderness. No suprapubic tenderness. Extremities: No edema, Capillary Refill Less than 3 Seconds Skin: No rashes, No breakdown Musculoskeletal: No Tenderness to Palpation of Joints or Extremities. ROM restricted. Degenerative arthritis Neurological: Cranial nerves II-XII grossly intact, DTR 2+/4. No acute focal neurological deficit. Psych/Mental Status: Flat affect. Results Lab / Micro Data 03/22/23 16:27 03/22/23 16:27 Labs: Laboratory Results - last 24 hr 03/22/23 16:27: WBC 28.9 H, RBC 3.25 L, Hgb 11.3 L, Hct 36.8 L, MCV 113.2 H, MCH 34.8 H, MCHC 30.7 L, RDW Std Deviation 65.4 H, RDW Coeff of Merry 15.6 H, Plt Count 154, MPV 12.9 H, Immature Gran % (Auto) 2.800 H, Neut % (Auto) 80.6 H, Lymph % (Auto) 1.8 L, [place] % (Auto) 14.6 H, Eos % (Auto) 0.1, Baso % (Auto) 0.1, Absolute Neuts (auto) 23.2 H, Absolute Lymphs (auto) 0.52 L, Nucleated RBC % 0, Differential Comment SEE COMMENTS, Diff Path Review May foll, Platelet Estimate ADEQUATE, RBC Morphology N CHROM, Anisocytosis 2+, Macrocytosis 2+, Sodium 137, Potassium 4.1, Chloride 100, Carbon Dioxide 21.0, Anion Gap 16 H, BUN 61 H, Creatinine 2.67 H, Estim Creat Clear Calc 19.91, Est GFR (MDRD) Af Amer 30 L, Est GFR (MDRD) Non-Af 25 L, BUN/Creatinine Ratio 22.8 H, Glucose 797 H*, Calcium 9.5, Total Bilirubin 1.70 H, AST 6 L, ALT 12 L, Alkaline Phosphatase 112, Troponin I High Sens 97 H, B-Natriuretic Peptide 474.6 H, Total Protein 7.6, Albumin 2.6 L, Globulin 5.0 H, Albumin/Globulin Ratio 0.5 L 03/22/23 16:40: Urine Color Yellow, Urine Clarity Clear, Urine pH 6.0, Ur Specific [place] 1.015, Urine Protein 100 H, Urine Glucose (UA) 1000 H, Urine Ketones 15 H, Urine Occult Blood 25 H, Urine Nitrite Negative, Urine Bilirubin Negative, Urine Urobilinogen 1 H, Ur Leukocyte Esterase Negative, Urine RBC 0-5 SEEN, Urine WBC 0 SEEN, Ur Squamous Epith Cells 0 SEEN, Amorphous Sediment 1+, Urine Bacteria RARE, Urine Mucus 0 SEEN Micro: Microbiology 03/22/23 16:59 Nasal Secretion SARS-CoV-2 & FLU Antigen (Rapid) - Final Radiology Impression Chest X-Ray 03/22/23 16:42 IMPRESSION: No acute pulmonary process Electronically Signed: Nathaniel Sow MD at 17:28 EDT , Brain CT 03/22/23 17:12 IMPRESSION: Chronic involutional changes of the brain. No acute hemorrhage, no interval change Electronically Signed: Nathaniel Sow MD at 17:29 EDT , Chest/Abdomen/Pelvis CT 03/22/23 17:55 IMPRESSION: Chronic interstitial changes in both lung connelly with interstitial edema, and a loculated right pleural effusion with associated atelectasis. 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 Consider short-term follow-up or additional imaging with ultrasound or contrasted study Small bowel ileus Retained stool in the colon Degenerative bony changes Electronically Signed: Nathaniel Sow MD at 19:08 EDT , Assessment & Plan Assessment/Plan (1) Pleural effusion, right: (2) DKA (diabetic ketoacidoses): QUALIFIERS: Diabetes mellitus type: type 2 Diabetes mellitus complication detail: without coma Qualified Code(s): E11.10 - Type 2 diabetes mellitus with ketoacidosis without coma PLAN: Plan 82-year-old gentleman brought by EMS for being sick with cough shortness of breath for 2 to 3 weeks. 1. Acute right loculated pleural effusion most likely due to parapneumonic effusion: Patient is being admitted in ICU. Patient has leukocytosis is 29,000,Predominantly polymorphs 80%, lymphopenia and monocytosis. Imaging shows right loculated pleural effusion.Lactic acid and procalcitonin ordered. Chest IV fluid, vancomycin and Zosyn. Irrigator consulted. Pneumonia work-up ordered including COVID-19 PCR. Rapid COVID antigen and flu are negative. 2. DKA with history of type 2 diabetes mellitus: Patient [place] gap is 16, bicarb 21, glucose about 800 mg in BMP. Exact presenting factor of decay unclear but most likely due to infection. Started on DKA protocol with IV fluid normal saline and insulin drip. Monitor BMP every 4 hourly. ABG and serum acetone ordered. 3. Chronic hypoxic respiratory failure with history of pulmonary hypertension with history of COVID-19 infection in the past and pneumonia in March 2022 and possible asthma: Patient follows in pulmonary clinic, Dr. Mckeon. RVSP 58 mmHg with mild TR. Exact etiology unclear. Patient was prescribed oxygen 3 L on exertion but currently even requiring at rest. Patient on baseline 3 L of oxygen. Currently I feel patient does not have features of asthma exacerbation. 4. New onset A-fib with chronic heart conditions with history of severe aortic stenosis status post bioprosthetic aortic valve replacement in 2018, mitral valve repair 2018 left atrial occlusion with atrial clip and chronic HFpEF: Patient had last echo in in June 2022 which showed normal EF 55% with bioprosthetic AV valve, severe pulmonary hypertension and angioplastic ring. Although echo reported normal RV size and systolic function. Although patient history of accelerated atrial junctional rhythm in the past and had atrial occlusion clip but this time EKG shows A-fib with PVCs with LAD and minimal LVH. QTc 452 ms. Heart rate 88/min. Start heparin drip with bolus. I do not think patient needs repeat echo. Heart rate is controlled. Patient follows in cardiology clinic with Willie dorman and used to follow Dr. Ibrahim. TSH tomorrow AM. 5. CHRIST on CKD stage IIIb: Patient's baseline creatinine about 1.5-1.6. Admitted with creatinine 2.67, BUN 61. Most likely due to DKA, prerenal. IV fluid resuscitation. Since patient also had urine retention in the ER and required straight cath. Bladder scan every 4 hourly. Other comorbidities include hypertension, diabetes mellitus type 2, last admission for pneumonia in March 2022, history of COVID-19 infection in the past, chronic macrocytic anemia: MCV 113. H&H 11.3/36%. Platelet count 154,000. Monitor CBC. DVT prophylaxis on heparin drip. Living will/advanced directive/end of life care: Patient does have living will or advanced directive. His power of trust and estates attorney for health is his , stating near the bedside. After discussion of benefits/risks procedures involved with full code, DNR CC arrest and DNR CC, the patient and his opted for full code. Patient does want artificial life support including intubation, tube feed, ventilator and/chest compression, central venous catheter, vasopressor and DC shock if needed Total time spent in [id number] encounter in discussion of advanced directive 17 minutes. Microbiology Past 72 Hours 03/22/23 16:59 Nasal Secretion SARS-CoV-2 & FLU Antigen (Rapid) - Final Laboratory Results 03/22/23 16:27: WBC 28.9 H, RBC 3.25 L, Hgb 11.3 L, Hct 36.8 L, MCV 113.2 H, MCH 34.8 H, MCHC 30.7 L, RDW Std Deviation 65.4 H, RDW Coeff of Merry 15.6 H, Plt Count 154, MPV 12.9 H, Immature Gran % (Auto) 2.800 H, Neut % (Auto) 80.6 H, Lymph % (Auto) 1.8 L, [place] % (Auto) 14.6 H, Eos % (Auto) 0.1, Baso % (Auto) 0.1, Absolute Neuts (auto) 23.2 H, Absolute Lymphs (auto) 0.52 L, Nucleated RBC % 0, Differential Comment SEE COMMENTS, Diff Path Review May foll, Platelet Estimate ADEQUATE, RBC Morphology N CHROM, Anisocytosis 2+, Macrocytosis 2+, Sodium 137, Potassium 4.1, Chloride 100, Carbon Dioxide 21.0, Anion Gap 16 H, BUN 61 H, Creatinine 2.67 H, Estim Creat Clear Calc 19.91, Est GFR (MDRD) Af Amer 30 L, Est GFR (MDRD) Non-Af 25 L, BUN/Creatinine Ratio 22.8 H, Glucose 797 H*, Calcium 9.5, Total Bilirubin 1.70 H, AST 6 L, ALT 12 L, Alkaline Phosphatase 112, Troponin I High Sens 97 H, B-Natriuretic Peptide 474.6 H, Total Protein 7.6, Albumin 2.6 L, Globulin 5.0 H, Albumin/Globulin Ratio 0.5 L 03/22/23 16:40: Urine Color Yellow, Urine Clarity Clear, Urine pH 6.0, Ur Specific [place] 1.015, Urine Protein 100 H, Urine Glucose (UA) 1000 H, Urine Ketones 15 H, Urine Occult Blood 25 H, Urine Nitrite Negative, Urine Bilirubin Negative, Urine Urobilinogen 1 H, Ur Leukocyte Esterase Negative, Urine RBC 0-5 SEEN, Urine WBC 0 SEEN, Ur Squamous Epith Cells 0 SEEN, Amorphous Sediment 1+, Urine Bacteria RARE, Urine Mucus 0 SEEN Echo June 2022 Left ventricular systolic function is normal. The estimated ejection fraction is 55 %. Post operative septal motion. An annuloplasty ring is noted in the mitral position. Trivial transvalvular insufficiency of the mitral valve. Mild tricuspid valve insufficiency. Stable appearing bioprosthetic aortic valve apparatus. Trivial pulmonic valve insufficiency. Right ventricular systolic pressure estimated to be 58 mmHg c/w pulmonary hypertension. Diastolic function is indeterminate. PFT September 2017 isolated defect in diffusion capacity consistent with a pulmonary vascular disorder. Patient follows Dr. Mckeon last pulmonary clinic follow-up in February 2023 Charges/Coding Visit Charges Inpatient E&M: 70125 Init Hosp L3 Procedures Hospitalists Procedures: 26218 Advncd Care Plan 30 Min
[2023-03-22] MEDS: Piperacil/Tazobactam 3.375 GM in 0.9% Normal Saline (50mL MB+) 50 ML IV (20:11)
[2023-03-22 21:07] LABS: Allen Test Positive; Base Excess -7 mmol/L (-2 to +2); Bicarbonate 19.2 mmol/L (22-26); Blood Gas Specimen Type ART; Mode Not entered; O2 Delivery Device Cannula; PO2 98 mmHG (75-100); SITE L Radial; SO2 97 % (95-99); Total Carbon Dioxide 20 mmol/L; pCO2 36.4 mmHg (35-45); pH 7.33 (7.35-7.45)
[2023-03-22] MEDS: Insulin Lispro 100 UNIT in 0.9% Normal Saline (100mL Bag) 99 ML 6.9 UNIT CONT INF (21:27)
[2023-03-22 21:29] LABS: Bedside Glucose > 500 mg/dL (74-106)
[2023-03-22 21:46] LABS: International Normalized Ratio 1.4; Partial Thromboplast Time 38.6 Seconds (24.1-36.2); Prothrombin Time (Protime)PT. 16.8 SECONDS (11.7-14.9)
[2023-03-22] MEDS: Heparin Injection (Vial) 5,000 UNIT/ML VIAL 4500 UNIT IV (21:48)
[2023-03-22] MEDS: HEPARIN/D5w 25,000 UNITS 25,000 UNITS/250 ML IV.SOLN. 10 UNITS CONT INF (21:48)
[2023-03-22] MEDS: 0.9% Normal Saline (1000mL) 1,000 ML 500 ML IV (21:52)
--- NOTE | 2023-03-22 21:52 | NURSING ---
Zosyn already ordered and hung in the ED prior to pt arrival to unit. Blood cultures ordered w/ ICU orders so they were not drawn until after zosyn was started.
[2023-03-22 22:33] LABS: Anion Gap 16 (5-15); BUN 62 mg/dL (7-18); BUN/Creat Ratio 24.5 RATIO (10-20); CPK Total, Creatine Kinase 69 U/L (39-308); Calcium,Total 8.7 mg/dL (8.5-10.1); Chloride 104 mmol/L (98-107); Creatinine, Serum 2.53 mg/dL (0.70-1.30); EST Glomerular Filtration Rate 26 mL/min (>60); Est Glom Filt Rate - Afr Amer 32 mL/min (>60); Glucose 787 mg/dL (74-106); Phosphorus 3.7 mg/dL (2.5-4.9); Potassium 3.9 mmol/L (3.5-5.1); Sodium Level 136 mmol/L (136-145)
[2023-03-22] MEDS: Vancomycin IV 1,000 MG/200 ML BAG 200 MG IV (22:34)
[2023-03-22] MEDS: 0.9% Saline Lock 10 ML Syringe IV (22:34)
[2023-03-22 22:43] LABS: Magnesium 2.4 mg/dL (1.6-2.6)
[2023-03-22 22:55] LABS: Osmolality, Serum 351 mOsm/KG (280-301)
[2023-03-22 22:59] LABS: Lactic Acid 1.5 mmol/L (0.4-1.9)
[2023-03-22 23:06] LABS: Procalcitonin 3.32 ng/mL (0.00-0.09)
[2023-03-22 23:17] LABS: Glucose 702 mg/dL (74-106)
[2023-03-22] MEDS: 0.9% Normal Saline (1000mL) 1,000 ML 250 ML IV (23:50)
[2023-03-23] VITALS (18 sets, daily range): BP systolic 96–125; BP diastolic 58–84; PULSE 76–107; RESP 18–36; TEMP 36.3–37.1; O2SAT 90–100; BMI 25.5
[2023-03-23 00:09] LABS: Bedside Glucose > 500 mg/dL (74-106)
[2023-03-23 00:23] LABS: Bedside Glucose 488 mg/dL (74-106)
[2023-03-23 01:16] LABS: Bedside Glucose 500 mg/dL (74-106)
[2023-03-23 02:12] LABS: Anion Gap 6 (5-15); BUN 52 mg/dL (7-18); BUN/Creat Ratio 27.1 RATIO (10-20); Calcium,Total 7.1 mg/dL (8.5-10.1); Chloride 117 mmol/L (98-107); Creatinine, Serum 1.92 mg/dL (0.70-1.30); EST Glomerular Filtration Rate 36 mL/min (>60); Est Glom Filt Rate - Afr Amer 44 mL/min (>60); Estimated Creatinine Clearance 25.69 ml/min; Glucose 495 mg/dL (74-106); Potassium 2.6 mmol/L (3.5-5.1); Sodium Level 144 mmol/L (136-145)
[2023-03-23 02:16] LABS: Bedside Glucose 467 mg/dL (74-106)
[2023-03-23] MEDS: Potassium Chloride 10mEq/100mL 10 MEQ/100 ML IV.SOLN. 100 MEQ IV BOLUS ×4 (02:26→06:20)
[2023-03-23 03:27] LABS: Bedside Glucose 421 mg/dL (74-106)
[2023-03-23] MEDS: 0.9% Saline Lock 10 ML Syringe IV (04:01)
[2023-03-23] MEDS: 0.9% Normal Saline (1000mL) 1,000 ML 250 ML IV (04:01)
[2023-03-23 04:05] LABS: Absolute Lymphocyte Count 1.17 X10^3/uL (0.83-4.51); Absolute Neutrophil Count 25.8 X10^3/uL (2.0-7.7); Basophil# 0.05 X10^3/uL; Basophil% 0.1 % (0-1); Eosinophil# 0.01 X10^3/uL; Hematocrit 30.4 % (40-54); Hemoglobin 9.6 g/dL (13.0-16.5); Lymphocyte # 1.17 X10^3/ul (0.83-4.51); Lymphocyte % 3.4 % (19-41); Mean Corp Hgb Conc 31.6 g/dL (32-36); Mean Corpuscular Volume 110.9 fL (80-94); Mean Platelet Vol. 12.7 fl (6.2-12.0); Monocyte# 5.97 X10^3/uL; Monocyte% 17.5 % (0-10); NRBC Flagged by Analyzer 0.1 % (0-5); Neutrophil # 25.83 X10^3/uL (2.7-7.7); Neutrophil % 76.1 % (47-70); POSITIVE COUNT YES; POSITIVE DIFFERENTIAL YES; Platelet Count 139 K/mm3 (150-450); RBC Distribution Width CV 15.3 % (11.6-14.6); RBC Distribution Width SD 61.1 fl (35.1-43.9); Red Blood Count 2.74 M/mm3 (4.6-6.2)
[2023-03-23 04:20] LABS: Bedside Glucose 392 mg/dL (74-106)
[2023-03-23 04:23] LABS: Differential Indicated SCAN CRITERIA MET
[2023-03-23 04:25] LABS: Partial Thromboplast Time 53.8 Seconds (24.1-36.2)
[2023-03-23 04:30] LABS: Troponin-I HS 82 pg/mL (3.0-78.0)
[2023-03-23] MEDS: Heparin Injection (Vial) 5,000 UNIT/ML VIAL IV ×2 (04:30→23:44)
[2023-03-23 05:08] LABS: Differential Comment SCANNED; Platelet Estimate ADEQUATE (ADEQ)
[2023-03-23 05:22] LABS: Bedside Glucose 352 mg/dL (74-106)
[2023-03-23 05:32] LABS: Anion Gap 3 (5-15); BUN 55 mg/dL (7-18); BUN/Creat Ratio 23.6 RATIO (10-20); Calcium,Total 8.3 mg/dL (8.5-10.1); Chloride 116 mmol/L (98-107); Cholesterol 92 mg/dL (200); Creatinine, Serum 2.33 mg/dL (0.70-1.30); EST Glomerular Filtration Rate 29 mL/min (>60); Est Glom Filt Rate - Afr Amer 35 mL/min (>60); Estimated Creatinine Clearance 21.17 ml/min; Glucose 408 mg/dL (74-106); High Density Lipoprotein 41 mg/dL; Potassium 3.4 mmol/L (3.5-5.1); Sodium Level 143 mmol/L (136-145); Thyroid Stim Hormone (TSH) 0.33 uIU/mL (0.358-3.74); Triglycerides 73 mg/dL; Very Low Density Lipoprotein 15 mg/dL (5-40)
--- NOTE | 2023-03-23 05:55 | RAD_ITS ---
INDICATION: sob EXAMINATION/TECHNIQUE: X-RAY - XR Chest 1 View COMPARISON: 03/22/2023. FINDINGS: LINES/DEVICES: Stable left atrial closure device. Prosthetic aortic valve. Status post median sternotomy. LUNGS: Right basilar atelectasis versus infiltrate. Probable small right pleural effusion. No evidence of a pneumothorax. MEDIASTINUM AND CARDIOVASCULAR STRUCTURES: Cardiac silhouette size upper limits of normal and unchanged. Mediastinum is unremarkable. BONES AND SOFT TISSUES: No acute abnormality. RAD/Chest 1 View (Portable) IMPRESSION: Right basilar atelectasis versus infiltrate and probable small right pleural effusion. Electronically Signed: Didier Daniel DO at 6:18 EDT ,
[2023-03-23 06:16] LABS: Magnesium 2.1 mg/dL (1.6-2.6); Phosphorus 1.9 mg/dL (2.5-4.9)
[2023-03-23 06:20] LABS: Bedside Glucose 357 mg/dL (74-106)
--- NOTE | 2023-03-23 06:35 | US_ITS ---
STUDY: SUPERFICIAL ULTRASOUND - CHEST REASON FOR EXAM: Male, 82 years old. R Pleural Effusion TECHNIQUE: A superficial ultrasound was performed with real-time and static dent-scale imaging. COMPARISON: None. FINDINGS: Not enough fluid for safe thoracentesis of the right pleural space. US/Chest IMPRESSION: Not enough fluid for safe thoracentesis of the right pleural space. Electronically Signed: Davie Scott MD at 14:55 EDT ,
[2023-03-23] MEDS: Insulin Glargine-YFGN 100 UNIT/ML Pen 15 UNIT SC (06:53)
[2023-03-23 07:17] LABS: Bedside Glucose 293 mg/dL (74-106)
[2023-03-23 07:22] LABS: ALB/GLOB Ratio 0.5 RATIO (0.9-2.4); Globulin 4.1 g/dL (2.2-4.2); LDH 195 U/L (87-241); Protein, Total 6.1 g/dL (6.4-8.2)
--- NOTE | 2023-03-23 07:46 | CON.PCM.CC_ITS ---
Assessment & Plan Assessment/Plan (1) DKA (diabetic ketoacidoses): QUALIFIERS: Diabetes mellitus complication detail: without coma Diabetes mellitus type: type 2 Qualified Code(s): E11.10 - Type 2 diabetes mellitus with ketoacidosis without coma (2) Pleural effusion, right: PLAN: Plan RECOMMENDATIONS: 1. Continue basal and sliding scale insulin coverage. Continue Accu-Cheks as ordered. 2. Proceed with ultrasound-guided thoracentesis. 3. Continue empiric broad-spectrum antimicrobials. 4. Continue heparin infusion. Echocardiogram is pending. 5. Wean supplemental oxygen to maintain saturations at or above 90%. 6. Encourage incentive spirometer use and mobilize patient as tolerated. 7. Start scheduled budesonide aerosols and as needed albuterol. IMPRESSIONS: 1. Diabetic ketoacidosis Resolved at this time. Anion gap has been closed. The patient has been initiated on basal and sliding scale insulin coverage, which will be continued. The patient will require diabetic education, given that he has a hemoglobin A1c of greater than 12. 2. Acute on chronic kidney disease Most likely prerenal in etiology in the setting of #1. Continue to monitor urine output. No current indication for renal replacement therapy. 3. Loculated right-sided pleural effusion/history of asthma/chronic hypoxemic respiratory failure The patient has a loculated right-sided pleural effusion on CT imaging of the chest, which could be related to underlying cardiac etiologies and/or a parapneumonic effusion. The patient has already been initiated on broad-spectr um antimicrobials. Plan to proceed with ultrasound-guided thoracentesis today. In addition, echocardiogram is pending. Aerosol treatments as ordered. 4. Troponin elevation Most likely secondary to demand ischemia. The patient has been initiated on a heparin infusion, with echocardiogram pending. This note was generated with [employer] dictation software. It may contain incorrect words, spelling, and punctuation that were not noted in checking the note before signing. HPI Consult Data Date of Consult: 03/24/23 HPI Narrative Reason for Consultation: Pleural effusion HPI Narrative: The patient is an 82-year-old male, with a history as outlined below, who presented to the emergency department on March 22 with a reported 1 month history of generalized weakness, frequent falls, shortness of breath and cough. The patient has a history of asthma and is currently followed by Dr. Mckeon in [facility]. At the time of his last office visit on February 28, the patient was treated with a Z-Angel. The patient does utilize 3 L/min of supplemental oxygen at his baseline. The patient is extremely hard of hearing and therefore very little additional information was able to be obtained from the patient himself. The patient also has a medical history significant for aortic valve stenosis status post aortic valve replacement. On presentation to the emergency department, the patient was documented to be afebrile hemodynamically stable. Initial laboratory evaluation revealed a white blood cell count of 28,000. Chemistry profile was notable for an anion gap of 16, BUN of 61 and creatinine of 2.67. Glucose was elevated at 797. Troponin was elevated at 97 with a BNP of 474. Procalcitonin was elevated at 3.3. Moderate serum acetone level was noted. Rapid COVID and influenza testing was negative. Strep and urine Legionella antigens were negative. In light of the patient's elevated white blood cell count, a CT chest/abdomen/pelvis was obtained. There was stigmata of pulmonary edema along with a loculated right- sided pleural effusion and associated atelectasis. The patient was started on a heparin drip in light of his elevated troponins and was initiated on broad- spectrum antimicrobials. Over concerns for DKA, the patient received supplemental IV fluids and was initiated on a continuous insulin infusion. He was subsequently admitted to the medical intensive care unit for further management. This morning, the patient's white blood cell count had increased to 34,000. He is thrombocytopenic with a platelet count of 139,000. The patient's anion gap has been closed now for several occasions. Hemoglobin A1c was noted to be 12.4. Creatinine remains elevated at 2.3. The patient did have an echocardiogram completed in June 2022 which demonstrated normal LV size and function with an ejection fraction of 55%. Right ventricular systolic pressure was estimated to be 58 mmHg. 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 Metabolic encephalopathy Mitral valve insufficiency Nonrheumatic aortic valve stenosis Nonrheumatic aortic valve stenosis with insufficiency Type 2 diabetes mellitus with hyperglycemia Home Medications polysaccharide iron complex 150 mg iron capsule (Ferrex) 150 mg PO DAILY 06/02/19 [History Last Taken 03/05/22] fluticasone propionate 50 mcg/actuation nasal spray,suspension (Allergy Relief (fluticasone)) 2 spray intranasal DAILY allergies 04/06/21 [History Last Taken 03/06/22] ascorbic acid (vitamin C) 500 mg tablet (Vitamin C) 500 mg PO DAILY supplement 03/06/22 [History Last Taken 03/05/22] multivit,Ca,min-iron fum-folic acid-bacill 14 mg-200 mcg-90 mg tablet 1 tab PO DAILY health maintenance 03/06/22 [History Last Taken 03/05/22] albuterol sulfate 90 mcg/actuation aerosol inhaler 2 puff inhalation Q6H PRN shortness of breath or wheezing #6.7 grams 03/09/22 [Rx Last Taken Unknown] handicap placcard #1 ea 04/11/22 [Rx Last Taken Unknown] losartan 25 mg tablet 25 mg PO DAILY #30 tabs 04/11/22 [Rx Last Taken Unknown] carvedilol 3.125 mg tablet 3.125 mg PO BID 30 days #60 tabs 06/14/22 [Rx Last Taken Unknown] albuterol sulfate 2.5 mg/3 mL (0.083 %) solution for nebulization 2.5 mg (3 mL) inhalation Q4H PRN Sob &/Or Wheezing #180 mL 09/25/22 [Rx Last Taken Unknown] budesonide 1 mg/2 mL suspension for nebulization 1 mg (2 mL) inhalation BID #60 mL 09/25/22 [Rx Last Taken Unknown] azithromycin 250 mg tablet See Rx Instructions PO .COMPLEX #6 tabs 02/28/23 [Rx Last Taken Unknown] loratadine 10 mg tablet (Allergy Relief (loratadine)) 10 mg PO DAILY #90 tabs 02/28/23 [Rx Last Taken Unknown] Allergy/AdvReac Type Severity Reaction Status Date / Time No Known Allergies Allergy Verified 03/22/23 16:19 Family History Mother Hypertension Father Hypertension Surgical History History of adenoidectomy History of aortic valve replacement with bioprosthetic valve (~07/04/17) History of left heart catheterization (~04/2017) History of tonsillectomy Hx of cholecystectomy S/P mitral valve repair (07/04/17) Social History Smoking Status: Never smoker alcohol intake: never substance use type: does not use caffeine: Yes Type: coffee Number of servings: 2 what type of physical activity do you participate in: other details: PT frequency: daily duration: 15-30 minutes/day seatbelt use: always do you feel safe at home: Yes ROS ROS Narrative 10 systems were reviewed with pertinent positives as noted in the HPI above. Physical Exam Const alert and no apparent distress HEENT normocephalic and head/scalp atraumatic General Ear: hearing grossly impaired Eyes PERRL, EOMs intact bilaterally and conjunctivae normal Neck supple General: trachea midline Chest inspection of chest normal Resp Effort and Inspection: tachypneic Auscultation: diminished lung sounds Cardio regular rate and regular rhythm GI normal to inspection, nondistended, normoactive bowel sounds Extremity no clubbing, cyanosis or edema Skin no rashes or lesions noted Neuro CN's II-XII intact bilaterally, moves all extremities and no focal motor deficits Psych cooperative and affect normal Lab / Micro Data 03/23/23 03:55 03/23/23 11:30 Labs: Laboratory Results - last 24 hr 03/22/23 16:27: WBC 28.9 H, RBC 3.25 L, Hgb 11.3 L, Hct 36.8 L, MCV 113.2 H, MCH 34.8 H, MCHC 30.7 L, RDW Std Deviation 65.4 H, RDW Coeff of Merry 15.6 H, Plt Count 154, MPV 12.9 H, Immature Gran % (Auto) 2.800 H, Neut % (Auto) 80.6 H, Lymph % (Auto) 1.8 L, Stone[place] % (Auto) 14.6 H, Eos % (Auto) 0.1, Baso % (Auto) 0.1, Absolute Neuts (auto) 23.2 H, Absolute Lymphs (auto) 0.52 L, Nucleated RBC % 0, Differential Comment SEE COMMENTS, Diff Path Review May foll, Platelet Estimate ADEQUATE, RBC Morphology N CHROM, Anisocytosis 2+, Macrocytosis 2+, Sodium 137, Potassium 4.1, Chloride 100, Carbon Dioxide 21.0, Anion Gap 16 H, BUN 61 H, Creatinine 2.67 H, Estim Creat Clear Calc 19.91, Est GFR (MDRD) Af Amer 30 L, Est GFR (MDRD) Non-Af 25 L, BUN/Creatinine Ratio 22.8 H, Glucose 797 H*, Calcium 9.5, Magnesium 2.4, Total Bilirubin 1.70 H, AST 6 L, ALT 12 L, Alkaline Phosphatase 112, Troponin I High Sens 97 H, B-Natriuretic Peptide 474.6 H, Total Protein 7.6, Albumin 2.6 L, Globulin 5.0 H, Albumin/Globulin Ratio 0.5 L 03/22/23 16:40: Urine Color Yellow, Urine Clarity Clear, Urine pH 6.0, Ur Spe cific Temple 1.015, Urine Protein 100 H, Urine Glucose (UA) 1000 H, Urine Ketones 15 H, Urine Occult Blood 25 H, Urine Nitrite Negative, Urine Bilirubin Negative, Urine Urobilinogen 1 H, Ur Leukocyte Esterase Negative, Urine RBC 0-5 SEEN, Urine WBC 0 SEEN, Ur Squamous Epith Cells 0 SEEN, Amorphous Sediment 1+, Urine Bacteria RARE, Urine Mucus 0 SEEN 03/22/23 21:10: POC Glucose > 500 H* 03/22/23 21:12: PT 16.8 H, INR 1.4, APTT 38.6 H, Sodium 136, Potassium 3.9, Chlo ride 104, Carbon Dioxide 16.0 L, Anion Gap 16 H, BUN 62 H, Creatinine 2.53 H, Estim Creat Clear Calc 19.50, Est GFR (MDRD) Af Amer 32 L, Est GFR (MDRD) Non-Af 26 L, BUN/Creatinine Ratio 24.5 H, Glucose 787 H*, Calcium 8.7, Phosphorus 3.7, Total Creatine Kinase 69 03/22/23 22:22: Serum Osmolality 351 H, Lactic Acid 1.5, Procalcitonin 3.32 H, Acetone Level MODERATE H 03/22/23 22:24: POC Glucose > 500 H* 03/22/23 22:38: Glucose 702 H* 03/23/23 00:05: POC Glucose 488 H* 03/23/23 00:56: Sodium Cancelled, Potassium Cancelled, Chloride Cancelled, Carbon Dioxide Cancelled, Anion Gap Cancelled, BUN Cancelled, Creatinine Cancelled, Estim Creat Clear Calc Cancelled, Est GFR (MDRD) Af Amer Cancelled, Est GFR (MDRD) Non-Af Cancelled, BUN/Creatinine Ratio Cancelled, Glucose Cancelled, Calcium Cancelled 03/23/23 00:58: POC Glucose 500 H* 03/23/23 01:39: Sodium 144, Potassium 2.6 L*, Chloride 117 H, Carbon Dioxide 21.0, Anion Gap 6, BUN 52 H, Creatinine 1.92 H, Estim Creat Clear Calc 25.69, Est GFR (MDRD) Af Amer 44 L, Est GFR (MDRD) Non-Af 36 L, BUN/Creatinine Ratio 27.1 H, Glucose 495 H*, Calcium 7.1 L 03/23/23 01:58: POC Glucose 467 H* 03/23/23 03:09: POC Glucose 421 H 03/23/23 03:35: Troponin I High Sens 82 H 03/23/23 03:55: WBC 34.0 H*, RBC 2.74 L, Hgb 9.6 L, Hct 30.4 L, MCV 110.9 H, MCH 35.0 H, MCHC 31.6 L, RDW Std Deviation 61.1 H, RDW Coeff of Merry 15.3 H, Plt Count 139 L, MPV 12.7 H, Immature Gran % (Auto) 2.900 H, Neut % (Auto) 76.1 H, Lymph % (Auto) 3.4 L, Stonewall % (Auto) 17.5 H, Eos % (Auto) 0.0, Baso % (Auto) 0.1, Absolute Neuts (auto) 25.8 H, Absolute Lymphs (auto) 1.17, Nucleated RBC % 0.1, Differential Comment SCANNED, Diff Path Review October foll, Platelet Estimate ADEQUATE, Hypochromasia IT RECRUITER, APTT 53.8 H, Sodium Cancelled, Potassium Cancelled, Chloride Cancelled, Carbon Dioxide Cancelled, Anion Gap Cancelled, BUN Cancelled, Creatinine Cancelled, Estim Creat Clear Calc Cancelled, Est GFR (MDRD) Af Amer Cancelled, Est GFR (MDRD) Non-Af Cancelled, BUN/Creatinine Ratio Cancelled, Glucose Cancelled, Calcium Cancelled, Triglycerides Cancelled, Cholesterol Cancelled, LDL Cholesterol Cancelled, VLDL Cholesterol Cancelled, HDL Cholesterol Cancelled, TSH Cancelled 03/23/23 04:00: POC Glucose 392 H 03/23/23 05:00: POC Glucose 352 H 03/23/23 05:05: Sodium 143, Potassium 3.4 L, Chloride 116 H, Carbon Dioxide 24.0, Anion Gap 3 L, BUN 55 H, Creatinine 2.33 H, Estim Creat Clear Calc 21.17, Est GFR (MDRD) Af Amer 35 L, Est GFR (MDRD) Non-Af 29 L, BUN/Creatinine Ratio 23.6 H, Glucose 408 H, Calcium 8.3 L, Phosphorus 1.9 L, Magnesium 2.1, Lactate Dehydrogenase 195, Total Protein 6.1 L, Globulin 4.1, Albumin/Globulin Ratio 0.5 L, Triglycerides 73, Cholesterol 92, LDL Cholesterol 36, VLDL Cholesterol 15, HDL Cholesterol 41, TSH 0.33 L 03/23/23 06:01: POC Glucose 357 H 03/23/23 06:58: POC Glucose 293 H Micro: Microbiology 03/22/23 20:50 Mucosa - Nasopharyngeal Coronavirus COVID-19 PCR - Final 03/22/23 20:50 Mucosa - Nasopharyngeal Respiratory Panel (PCR) - Final 03/22/23 16:40 Urine, Clean Catch Legionella Antigen - Final 03/22/23 16:40 Urine, Clean Catch Streptococcus pneumoniae Antigen (M - F inal 03/22/23 16:59 Nasal Secretion SARS-CoV-2 & FLU Antigen (Rapid) - Final ABG Data ABG results: ABG 03/22/23 21:03 Specimen Type ART Sample Site L Radial pH 7.33 L Bicarbonate Actual 19.2 L Total CO2 20 Base Excess -7 L O2 Saturation 97 O2 % 3.0 ABG pCO2 36.4 ABG pO2 98 Jefe Test Positive O2 Delivery Device Cannula Vent Mode Not entered Radiology Impression Chest X-Ray 03/22/23 16:42 IMPRESSION: No acute pulmonary process Electronically Signed: Nathaniel Sow MD at 17:28 EDT , Brain CT 03/22/23 17:12 IMPRESSION: Chronic involutional changes of the brain. No acute hemorrhage, no interval change Electronically Signed: Nathaniel Sow MD at 17:29 EDT , Chest/Abdomen/Pelvis CT 03/22/23 17:55 IMPRESSION: Chronic interstitial changes in both lung connelly with interstitial edema, and a loculated right pleural effusion with associated atelectasis. 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 Consider short-term follow-up or additional imaging with ultrasound or contrasted study Small bowel ileus Retained stool in the colon Degenerative bony changes Electronically Signed: Nathaniel Sow MD at 19:08 EDT , Chest X-Ray 03/23/23 05:55 IMPRESSION: Right basilar atelectasis versus infiltrate and probable small right pleural effusion. Electronically Signed: Didier Daniel DO at 6:18 EDT , Charges/Coding Visit Charges Inpatient E&M: 73944 Init Hosp L3
[2023-03-23 07:49] LABS: Hemoglobin A1c 12.4 % (3.8-5.6)
--- NOTE | 2023-03-23 07:54 | ECHOD_ITS ---
Reason For Study: CONGENITAL HEART DISEASE Procedure This was a 2D Doppler, Color Flow transthoracic echocardiogram. Exam performed portable in ICU/CCU. Left Ventricle Normal LV size. The estimated ejection fraction is 55 %. Unable to assess diastolic dysfunction. septal hypokinesis. Right Ventricle Normal RV size. Normal systolic function. Atria Normal left atrium. Normal right atrium. Mitral Valve There is no mitral valve stenosis. No mitral valve insufficiency. An annuloplasty ring is noted in the mitral position. Tricuspid Valve There is no tricuspid stenosis. Mild tricuspid valve insufficiency. Pulmonary artery systolic pressure is 65 mmHg. Aortic Valve There is no aortic stenosis. No aortic valve insufficiency. Stable appearing bioprosthetic aortic valve apparatus. Pulmonic Valve There is no pulmonic valvular stenosis. Trivial pulmonic valve insufficiency. Great Vessels Normal aortic root. Pericardium/Pleural No pericardial effusion. MMode/2D Measurements & Calculations LVIDd: 4.9 cm IVSd: 1.5 cm Ao root diam: 3.8 cm LVIDs: 3.5 cm LVPWd: 1.5 cm RVDd: 3.3 cm FS: 29.6 % LAV(MOD-bp): 90.1 ml LVAd ap4: 34.7 cm2 LVAd ap2: 27.4 cm2 LAV(MOD-bp) Indexed: 52.3 ml/m2 LVLd ap4: 8.8 cm LVLd ap2: 7.2 cm LAV(MOD-sp2): 82.8 ml EDV(MOD-sp4): 120.3 ml EDV(MOD-sp2): 88.5 ml LAV(MOD-sp4): 84.9 ml EDV(sp4-el): 115.8 ml EDV(sp2-el): 88.0 ml LVAs ap4: 17.3 cm2 LVAs ap2: 16.9 cm2 LVLs ap4: 7.2 cm LVLs ap2: 7.0 cm ESV(MOD-sp4): 39.1 ml ESV(MOD-sp2): 35.1 ml ESV(sp4-el): 35.3 ml ESV(sp2-el): 34.6 ml EF(MOD-sp4): 67.5 % EF(MOD-sp2): 60.4 % EF(sp4-el): 69.5 % SV(MOD-sp4): 81.2 ml SV(MOD-sp2): 53.5 ml SV(sp4-el): 80.5 ml LA dimension(2D): 4.3 cm LA A4 area: 23.9 cm2 RA A4 area: 16.5 cm2 TAPSE: 0.83 cm Doppler Measurements & Calculations MV E max chaim: 138.1 cm/sec Lat Peak E' Chaim: 11.6 cm/sec Med Peak E' Chaim: 10.8 cm/sec E/E' lat: 11.9 E/E' med: 12.7 Ao V2 max: 235.9 cm/sec LV V1 max: 96.4 cm/sec PA V2 max: 102.8 cm/sec Ao max P.3 mmHg LV V1 max P.7 mmHg PA V2 mean: 66.2 cm/sec Ao V2 mean: 181.6 cm/sec LV V1 mean P.3 mmHg Ao mean P.1 mmHg LV V1 mean: 71.1 cm/sec Ao V2 VTI: 40.1 cm LV V1 VTI: 15.2 cm AV (velocity ratio): 0.38 TR max chaim: 391.0 cm/sec TR max P.1 mmHg ECHO/Echo Complete Interpretation Summary The estimated ejection fraction is 55 %. Unable to assess diastolic dysfunction. septal hypokinesis Ordering Physician: Silas Randolph Referring Physician: Berny Almanza Performed By: Jacqueline Kahn, ITZEL, RVT
--- NOTE | 2023-03-23 08:11 | PCM.RX.CS ---
Consult Antibiotic Management Pharmacy has been consulted to manage selected antiobiotic: Vancomycin Type of Intervention Type of Consult: Follow-up Suspected Infection Suspected Infection: Other (EMPIRIC) Prior Doses of Antibiotics Prior Doses of Antibiotics Received/Current Regimen: Vancomycin 1000 mg IV x 1 given 03/22/23 @ 2234 Labs Labs: Sodium 143 mmol/L (136-145) 03/23/23 05:05 Potassium 3.4 mmol/L (3.5-5.1) L 03/23/23 05:05 Chloride 116 mmol/L (98-107) H 03/23/23 05:05 Carbon Dioxide 24.0 mmol/L (21.0-32.0) 03/23/23 05:05 Anion Gap 3 (5-15) L 03/23/23 05:05 BUN 55 mg/dL (7-18) H 03/23/23 05:05 Creatinine 2.33 mg/dL (0.70-1.30) H 03/23/23 05:05 Est GFR (MDRD) Af Amer 35 mL/min (>60) L 03/23/23 05:05 Est GFR (MDRD) Non-Af 29 mL/min (>60) L 03/23/23 05:05 BUN/Creatinine Ratio 23.6 RATIO (10-20) H 03/23/23 05:05 Glucose 408 mg/dL (74-106) H 03/23/23 05:05 Microbiology Microbiology: Microbiology 03/22/23 20:50 Mucosa - Nasopharyngeal Coronavirus COVID-19 PCR - Final 03/22/23 20:50 Mucosa - Nasopharyngeal Respiratory Panel (PCR) - Final 03/22/23 16:40 Urine, Clean Catch Legionella Antigen - Final 03/22/23 16:40 Urine, Clean Catch Streptococcus pneumoniae Antigen (M - Final 03/22/23 16:59 Nasal Secretion SARS-CoV-2 & FLU Antigen (Rapid) - Final Dosing Weight Weight used for dosin.5 kg Estimated Creatinine Clearance Estimated Creatinine Clearance: 22 Goal Trough Goal Trough: 15-20 mcg/mL Pharmacy Plan for Drug Dosing Pharmacy Plan for Drug Dosing: Serum creatinine improved, will begin 500 mg Q24H dosing starting this evening, with a trough prior to the 3rd dose. Pharmacy Service will continue to monitor and adjust dosing as required. Follow-Up Labs Follow-Up Labs: Trough: Vancomycin Date/Time Labs Ordered Labs to be done on [date and time ordered]: 03/24/23 @ [id number]
[2023-03-23 08:39] LABS: Bedside Glucose 259 mg/dL (74-106)
[2023-03-23] MEDS: Pantoprazole Sodium 40 MG Tablet PO (10:57)
[2023-03-23 11:47] LABS: Bedside Glucose 228 mg/dL (74-106)
[2023-03-23 11:50] LABS: Anion Gap 8 (5-15); BUN 55 mg/dL (7-18); BUN/Creat Ratio 26.7 RATIO (10-20); Calcium,Total 8.3 mg/dL (8.5-10.1); Chloride 115 mmol/L (98-107); Creatinine, Serum 2.06 mg/dL (0.70-1.30); EST Glomerular Filtration Rate 33 mL/min (>60); Est Glom Filt Rate - Afr Amer 40 mL/min (>60); Estimated Creatinine Clearance 23.95 ml/min; Glucose 259 mg/dL (74-106); Potassium 3.5 mmol/L (3.5-5.1); Sodium Level 146 mmol/L (136-145)
--- NOTE | 2023-03-23 11:53 | NURSING ---
report called to pcu transferred per bed to 124, transferred per bed with belongings
--- NOTE | 2023-03-23 12:06 | NURSING ---
message left for on home phone Matthieu transferred to pcu [id number]
[2023-03-23] MEDS: Ondansetron 4 MG/2 ML Vial IV (12:42)
--- NOTE | 2023-03-23 13:18 | CASEMGMT ---
RN CM into pt room to perform assessment. Pt states he needs to get out of the hospital. He was able to answer all orientation questions correctly, pt very [place]. Asked pt if ok to call his for assessment, he was agreeable to this. TC to pt , left with return call information.
[2023-03-23] MEDS: Haloperidol Lactate 5 MG/ML Vial 2 MG IV (14:14)
[2023-03-23 14:29] LABS: Pathologist Review Reviewed
[2023-03-23 14:31] LABS: Pathologist Review Reviewed
[2023-03-23] MEDS: Piperacil/Tazobactam 3.375 GM in 0.9% Normal Saline (50mL MB+) 50 ML IV ×2 (15:34→20:09)
--- NOTE | 2023-03-23 15:59 | PN.HOSP_ITS ---
Reason for Visit Reason for Visit: Diagnoses Type 2 diabetes mellitus with ketoacidosis without coma (03/22/23) Pleural effusion, not elsewhere classified (03/22/23) Subjective Subjective Patient seen at bedside this morning. Laying in bed and appeared fairly agitated, was quite confused and not able to answer questions appropriately. Objective Data Objective Data Vital Signs: Vital Signs Temp Pulse Resp BP Pulse Ox O2 Del Method O2 Flow Rate 98.5 F 88 18 105/65 95 Nasal Cannula 2 03/23/23 15:41 03/23/23 15:41 03/23/23 15:41 03/23/23 15:41 03/23/23 15:41 03/23/23 15:48 03/23/23 15:48 Oxygen Flow Rate (L/min) 2 Oxygen Delivery Method Nasal Cannula Weight: 67.5 kg Body Mass Index (BMI) 25.5 Intake & Output: Intake and Output for Last 24 Hours 03/21/23 03/22/23 03/23/23 23:59 23:59 23:59 Intake Total 4127.00 / 4127.00 Output Total 875 / 875 Balance 60 3252.00 / 3252.00 Medical Nutrition Assessment Dietitian: Malnutrition Criteria Met Start: 03/23/23 10:09 Freq: Status: Active Protocol: Document 03/23/23 10:09 JOHANA (Rec: 03/23/23 10:09 JOHANA [id number]) Nutrition Malnutrition Evidence of Malnutrition Exists Yes Malnutrition (severe): Acute Illness/Injury Evidenced By Suboptimal Energy Intake ( Severe),Weight Loss (Severe), Physical Changes (Mild) Clinical Problem Acute Disease or Injury Related Malnutrition Etiology SUSPECTED r/t pt being sick and likely not consuming adequate energy and 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 Signs/Symptoms as evidenced by predicted po intake <50% of est nutritional needs x > 2 wk and Status Active Problem Altered Nutrient-Related Laboratory Values Etiology related to uncontrolled diabetes Signs/Symptoms as evidenced by A1c = 12.4 and gluc 408 today Status Active Problem Recommendation Dietitian Recommendations/Changes Rec Cardiac 1800 aaron CHO Control diet when able to resume po diet Will order 4 oz glucerna shake tid w/ medpass for increased nutrition if consumed.d/t suspected malnutrition Lab / Micro Data 03/23/23 03:55 03/23/23 11:30 Labs: Laboratory Results - last 24 hr 03/22/23 16:27: WBC 28.9 H, RBC 3.25 L, Hgb 11.3 L, Hct 36.8 L, MCV 113.2 H, MCH 34.8 H, MCHC 30.7 L, RDW Std Deviation 65.4 H, RDW Coeff of Merry 15.6 H, Plt Count 154, MPV 12.9 H, Immature Gran % (Auto) 2.800 H, Neut % (Auto) 80.6 H, Lymph % (Auto) 1.8 L, [place] % (Auto) 14.6 H, Eos % (Auto) 0.1, Baso % (Auto) 0.1, Absolute Neuts (auto) 23.2 H, Absolute Lymphs (auto) 0.52 L, Nucleated RBC % 0, Differential Comment SEE COMMENTS, Diff Path Review Reviewed, Platelet Estimate ADEQUATE, RBC Morphology N CHROM, Anisocytosis 2+, Macrocytosis 2+, Sodium 137, Potassium 4.1, Chloride 100, Carbon Dioxide 21.0, Anion Gap 16 H, BUN 61 H, Creatinine 2.67 H, Estim Creat Clear Calc 19.91, Est GFR (MDRD) Af Amer 30 L, E st GFR (MDRD) Non-Af 25 L, BUN/Creatinine Ratio 22.8 H, Glucose 797 H*, Calcium 9.5, Magnesium 2.4, Total Bilirubin 1.70 H, AST 6 L, ALT 12 L, Alkaline Phosphatase 112, Troponin I High Sens 97 H, B-Natriuretic Peptide 474.6 H, Total Protein 7.6, Albumin 2.6 L, Globulin 5.0 H, Albumin/Globulin Ratio 0.5 L 03/22/23 16:40: Urine Color Yellow, Urine Clarity Clear, Urine pH 6.0, Ur Specific [place] 1.015, Urine Protein 100 H, Urine Glucose (UA) 1000 H, Urine Ketones 15 H, Urine Occult Blood 25 H, Urine Nitrite Negative, Urine Bilirubin Negative, Urine Urobilinogen 1 H, Ur Leukocyte Esterase Negative, Urine RBC 0-5 SEEN, Urine WBC 0 SEEN, Ur Squamous Epith Cells 0 SEEN, Amorphous Sediment 1+, Urine Bacteria RARE, Urine Mucus 0 SEEN 03/22/23 21:10: POC Glucose > 500 H* 03/22/23 21:12: PT 16.8 H, INR 1.4, APTT 38.6 H, Sodium 136, Potassium 3.9, Chloride 104, Carbon Dioxide 16.0 L, Anion Gap 16 H, BUN 62 H, Creatinine 2.53 H , Estim Creat Clear Calc 19.50, Est GFR (MDRD) Af Amer 32 L, Est GFR (MDRD) Non- Af 26 L, BUN/Creatinine Ratio 24.5 H, Glucose 787 H*, Calcium 8.7, Phosphorus 3.7, Total Creatine Kinase 69 03/22/23 22:22: Serum Osmolality 351 H, Lactic Acid 1.5, Procalcitonin 3.32 H, Acetone Level MODERATE H 03/22/23 22:24: POC Glucose > 500 H* 03/22/23 22:38: Glucose 702 H* 03/23/23 00:05: POC Glucose 488 H* 03/23/23 00:56: Sodium Cancelled, Potassium Cancelled, Chloride Cancelled, Carbon Dioxide Cancelled, Anion Gap Cancelled, BUN Cancelled, Creatinine Cancelled, Estim Creat Clear Calc Cancelled, Est GFR (MDRD) Af Amer Cancelled, Est GFR (MDRD) Non-Af Cancelled, BUN/Creatinine Ratio Cancelled, Glucose Cancelled, Calcium Cancelled 03/23/23 00:58: POC Glucose 500 H* 03/23/23 01:39: Sodium 144, Potassium 2.6 L*, Chloride 117 H, Carbon Dioxide 21.0, Anion Gap 6, BUN 52 H, Creatinine 1.92 H, Estim Creat Clear Calc 25.69, Est GFR (MDRD) Af Amer 44 L, Est GFR (MDRD) Non-Af 36 L, BUN/Creatinine Ratio 27.1 H, Glucose 495 H*, Calcium 7.1 L 03/23/23 01:58: POC Glucose 467 H* 03/23/23 03:09: POC Glucose 421 H 03/23/23 03:35: Troponin I High Sens 82 H 03/23/23 03:55: WBC 34.0 H*, RBC 2.74 L, Hgb 9.6 L, Hct 30.4 L, MCV 110.9 H, MCH 35.0 H, MCHC 31.6 L, RDW Std Deviation 61.1 H, RDW Coeff of Merry 15.3 H, Plt Count 139 L, MPV 12.7 H, Immature Gran % (Auto) 2.900 H, Neut % (Auto) 76.1 H, Lymph % (Auto) 3.4 L, [place] % (Auto) 17.5 H, Eos % (Auto) 0.0, Baso % (Auto) 0.1, Absolute Neuts (auto) 25.8 H, Absolute Lymphs (auto) 1.17, Nucleated RBC % 0.1, Differential Comment SCANNED, Diff Path Review Reviewed, Platelet Estimate ADEQUATE, Hypochromasia SKEIN DYER, APTT 53.8 H, Sodium Cancelled, Potassium Cancelled, Chloride Cancelled, Carbon Dioxide Cancelled, Anion Gap Cancelled, BUN Cancelled, Creatinine Cancelled, Estim Creat Clear Calc Cancelled, Est GFR (MDRD) Af Amer Cancelled, Est GFR (MDRD) Non-Af Cancelled, BUN/Creatinine Ratio Cancelled, Glucose Cancelled, Hemoglobin A1c 12.4 H, Calcium Cancelled, Triglycerides Cancelled, Cholesterol Cancelled, LDL Cholesterol Cancelled, VLDL Cholesterol Cancelled, HDL Cholesterol Cancelled, TSH Cancelled 03/23/23 04:00: POC Glucose 392 H 03/23/23 05:00: POC Glucose 352 H 03/23/23 05:05: Sodium 143, Potassium 3.4 L, Chloride 116 H, Carbon Dioxide 24.0, Anion Gap 3 L, BUN 55 H, Creatinine 2.33 H, Estim Creat Clear Calc 21.17, Est GFR (MDRD) Af Amer 35 L, Est GFR (MDRD) Non-Af 29 L, BUN/Creatinine Ratio 23.6 H, Glucose 408 H, Calcium 8.3 L, Phosphorus 1.9 L, Magnesium 2.1, Lactate Dehydrogenase 195, Total Protein 6.1 L, Globulin 4.1, Albumin/Globulin Ratio 0.5 L, Triglycerides 73, Cholesterol 92, LDL Cholesterol 36, VLDL Cholesterol 15, HDL Cholesterol 41, TSH 0.33 L 03/23/23 06:01: POC Glucose 357 H 03/23/23 06:58: POC Glucose 293 H 03/23/23 08:21: POC Glucose 259 H 03/23/23 11:24: POC Glucose 228 H 03/23/23 11:30: APTT 42.0 H, Sodium 146 H, Potassium 3.5, Chloride 115 H, Carbon Dioxide 23.0, Anion Gap 8, BUN 55 H, Creatinine 2.06 H, Estim Creat Clear Calc 23.95, Est GFR (MDRD) Af Amer 40 L, Est GFR (MDRD) Non-Af 33 L, BUN/Creatinine Ratio 26.7 H, Glucose 259 H, Calcium 8.3 L Micro: Microbiology 03/23/23 05:25 Sputum, Expectorated/Coughed Gram Stain - Final 03/22/23 20:50 Mucosa - Nasopharyngeal Coronavirus COVID-19 PCR - Final 03/22/23 20:50 Mucosa - Nasopharyngeal Respiratory Panel (PCR) - Final 03/22/23 16:40 Urine, Clean Catch Legionella Antigen - Final 03/22/23 16:40 Urine, Clean Catch Streptococcus pneumoniae Antigen (M - Final 03/22/23 16:59 Nasal Secretion SARS-CoV-2 & FLU Antigen (Rapid) - Final ABG Data ABG results: ABG 03/22/23 21:03 Specimen Type ART Sample Site L Radial pH 7.33 L Bicarbonate Actual 19.2 L Total CO2 20 Base Excess -7 L O2 Saturation 97 O2 % 3.0 ABG pCO2 36.4 ABG pO2 98 Jefe Test Positive O2 Delivery Device Cannula Vent Mode Not entered Radiography Diagnostic Testing: Radiology Impression Chest X-Ray 03/22/23 16:42 IMPRESSION: No acute pulmonary process Electronically Signed: Nathaniel Sow MD at 17:28 EDT Reading Location ID and State: [facility] / [place] , Service support , Brain CT 03/22/23 17:12 IMPRESSION: Chronic involutional changes of the brain. No acute hemorrhage, no interval change Electronically Signed: Nathaniel Sow MD at 17:29 EDT , Chest/Abdomen/Pelvis CT 03/22/23 17:55 IMPRESSION: Chronic interstitial changes in both lung connelly with interstitial edema, and a loculated right pleural effusion with associated atelectasis. 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 Consider short-term follow-up or additional imaging with ultrasound or contrasted study Small bowel ileus Retained stool in the colon Degenerative bony changes Electronically Signed: Nathaniel Sow MD at 19:08 EDT , Chest X-Ray 03/23/23 05:55 IMPRESSION: Right basilar atelectasis versus infiltrate and probable small right pleural effusion. Electronically Signed: Didier Daniel DO at 6:18 EDT , Echocardiogram 03/23/23 07:54 Interpretation Summary The estimated ejection fraction is 55 %. Unable to assess diastolic dysfunction. septal hypokinesis Ordering Physician: Silas Randolph Referring Physician: Berny Almanza Performed By: Jacqueline Kahn, RDCS, RVT Physical Exam Const alert Constitutional Narrative: Elderly male, laying in bed, alert but appears very confused, not answering questions appropriately. Notably is blind at baseline and is very hard of hearing, did not have his hearing aids in on my interview. HEENT normocephalic, head/scalp atraumatic, hearing grossly normal bilaterally, nasal mucous membranes and turbinates normal and moist oral mucous membranes Eyes PERRL, EOMs intact bilaterally and conjunctivae normal Neck full ROM, no lymphadenopathy and supple Lymph Lymphatic: no lymphadenopathy noted Chest inspection of chest normal Resp normal respiratory effort, normal air movement, no use of accessory muscles and clear to auscultation bilaterally Cardio regular rate, regular rhythm, no murmurs and peripheral pulses 2+ throughout GI normal to inspection, nondistended, normoactive bowel sounds, soft to palpation, non-tender and non-distended Back/Spine normal ROM Extremity normal to inspection, full ROM and no pedal edema Skin no rashes or lesions noted Assessment & Plan Assessment/Plan (1) Pleural effusion, right: PLAN: Plan Patient is an 82-year-old male with history of chronic respiratory failure secondary to COVID infection on home 3 L, hypertension, type 2 diabetes, CKD stage IIIb, HFpEF, 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 1. Community-acquired pneumonia with unknown organism, acute right loculated pleural effusion WBC count of 29 on admit. Low-grade fever, mild tachycardia, satting in mid to high 90s on 2 L nasal cannula on admit. CT chest/abdomen/pelvis without contrast showed a loculated right pleural effusion with associated atelectasis. Patient very confused since admission as noted below, patient's reported he had a productive cough with thick yellowish sputum along with generalized weakness for 2 to 3 weeks. COVID and flu negative, urine antigens negative. S/p 2 L of normal saline in the ED. ? Pulmonology following. Continue IV vancomycin and Zosyn. Unfortunately patient was unable to complete thoracentesis on 03/23 due to confusion and inability to cooperate for thoracentesis. Follow-up blood cultures and sputum culture. Monitor CBC and BMP daily. Hold on further fluids for now. 2. DKA, history of type 2 diabetes Presenting labs of glucose 702, bicarb 16, anion gap 16. Initiated on insulin drip on admission and admitted to the ICU. Anion gap closed by 03/23, transitioned off insulin drip and transferred out of ICU. Patient's home medication regimen unclear. Hemoglobin A1c of 12.4%. ? Continue insulin glargine 15 units daily, sliding scale insulin as needed. Will need to establish home regimen on discharge. 3. Acute metabolic encephalopathy Suspected secondary to acute infection as above with known underlying blindness and difficulty hearing. Unclear if patient has underlying dementia as well. Patient has been very confused and agitated since admission. ? Treating underlying infection as noted above. Attempting conservative measures to redirect patient as able. Can consider IV antipsychotics as needed. 4. New onset atrial fibrillation EKG on admission showed A-fib with PVCs, along with LAD and minimal LVH. Heart rate was 88 bpm. Started on heparin drip in the ED. Patient notably had echo in 06/2022 that showed normal EF of 55%, severe pulmonary hypertension but normal RV size and systolic function. Does have history of accelerated atrial junctional rhythm in the past and had atrial occlusion clip placed. ? Continue heparin drip. Will likely need oral anticoagulation on discharge. Follows with cardiology outpatient, can continue outpatient follow-up for now. Suspect new onset A-fib is primarily secondary to acute infection. Monitor telemetry. 5. CHRIST on CKD stage IIIb Prerenal CHRIST in setting of acute infection with poor p.o. intake as well as DKA as noted above. BUN 61, creatinine 2.67 on admit. Baseline creatinine around 1.5-1.6. ? Creatinine improving with IV fluids. Monitor BMP daily. 6. Chronic hypoxic respiratory failure on home 3 L nasal cannula ? Secondary to previous COVID infection. Chest x-ray on admit showed in terstitial fibrosis that was stable, as well as acute loculated effusion as noted above. Continue supplemental oxygen, wean as able. Treat pneumonia as noted above. Continue home inhalers. Chronic medical conditions: ? Hypertension: Holding home losartan and Coreg for now, restart as able. ? Hard of hearing: Ensure patient has hearing aids in as much as able. ? Blindness: Per history. Complicates treatment. DVT prophylaxis: Heparin drip CODE STATUS: Full code, verified Expected disposition: TBD Total clinical time spent by myself addressing the patient's medical issues, reviewing all the data, and collaborating with patient's care team: 35 minutes. Charges/Coding Visit Charges Inpatient E&M: 77743 Subs Hosp L2
[2023-03-23] MEDS: Insulin Lispro 100 UNIT/ML INSULN.PEN SC (17:01)
[2023-03-23 17:11] LABS: Bedside Glucose 248 mg/dL (74-106)
[2023-03-23] MEDS: Vancomycin IV 500 MG/100 ML BAG 100 MG IV (20:09)
[2023-03-23] MEDS: Budesonide Respules 0.5 MG/2 ML AMPUL.NEB. INHALATION (20:15)
[2023-03-23] MEDS: Albuterol 2.5 MG/3 ML VIAL.NEB. INHALATION (20:15)
[2023-03-23 20:42] LABS: Bedside Glucose 173 mg/dL (74-106)
[2023-03-23 23:01] LABS: Partial Thromboplast Time 44.2 Seconds (24.1-36.2)
[2023-03-23] MEDS: HEPARIN/D5w 25,000 UNITS 25,000 UNITS/250 ML IV.SOLN. 12 UNITS CONT INF (23:42)
[2023-03-24] VITALS (12 sets, daily range): BP systolic 97–107; BP diastolic 48–82; PULSE 78–110; RESP 18–24; TEMP 36.4–37.8; O2SAT 91–100; BMI 27.1
[2023-03-24] MEDS: Piperacil/Tazobactam 3.375 GM in 0.9% Normal Saline (50mL MB+) 50 ML IV ×3 (05:43→20:42)
[2023-03-24 05:44] LABS: Bedside Glucose 279 mg/dL (74-106)
[2023-03-24] MEDS: Insulin Lispro 100 UNIT/ML INSULN.PEN SC ×3 (05:44→20:43)
--- NOTE | 2023-03-24 06:21 | PN.CC_ITS ---
Assessment & Plan Assessment/Plan (1) DKA (diabetic ketoacidoses): QUALIFIERS: Diabetes mellitus complication detail: without coma Diabetes mellitus type: type 2 Qualified Code(s): E11.10 - Type 2 diabetes mellitus with ketoacidosis without coma (2) Pleural effusion, right: PLAN: Plan RECOMMENDATIONS: 1. Continue basal and sliding scale insulin coverage. Continue Accu-Cheks as ordered. 2. Continue empiric broad-spectrum antimicrobials. 3. Wean supplemental oxygen to maintain saturations at or above 90%. 4. Encourage incentive spirometer use and mobilize patient as tolerated. 5. Continue scheduled budesonide aerosols and as needed albuterol. IMPRESSIONS: 1. Diabetic ketoacidosis Resolved at this time. Anion gap has been closed. The patient has been initiated on basal and sliding scale insulin coverage, which will be continued. The patient will require diabetic education, given that he has a hemoglobin A1c of greater than 12. 2. Acute on chronic kidney disease Most likely prerenal in etiology in the setting of #1. Continue to monitor urine output. No current indication for renal replacement therapy. 3. Loculated right-sided pleural effusion/history of asthma/chronic hypoxemic respiratory failure The patient has a loculated right-sided pleural effusion on CT imaging of the chest, which could be related to underlying cardiac etiologies and/or a parapneumonic effusion. The patient has already been initiated on broad- spectrum antimicrobials. Unfortunately, the patient was unable to tolerate an attempted an ultrasound-guided thoracentesis on March 23. Echocardiogram revealed normal ejection fraction. Plan to continue current supportive measures and aerosol treatments as ordered. If the patient's pleural effusion does not improve with antimicrobial management, he may require outpatient referral to thoracic surgery for evaluation. 4. Troponin elevation Most likely secondary to demand ischemia. Echocardiogram was unrevealing. This note was generated with [employer] dictation software. It may contain incorrect words, spelling, and punctuation that were not noted in checking the note before signing. Subjective Subjective The patient was seen and examined at the bedside this morning. Events from the last 24 hours have been reviewed. The patient is currently afebrile, hemodynamically stable and maintaining appropriate oxygen saturations on 3 L/min via nasal cannula. The patient was apparently unable to complete the thoracentesis yesterday due to confusion and inability to cooperate with the procedure. The patient remains confused this morning, repeatedly asking for water. Objective Data Objective Data The patient's most recent lab work, culture data and imaging studies have all been personally reviewed. Surface echocardiogram demonstrated normal LV size and thickness with an ejection fraction of 55%. Pulmonary artery systolic pressure was estimated to be 65 mmHg. Blood and sputum cultures are pending. Vital Signs: Vital Signs Temp Pulse Resp BP Pulse Ox O2 Del Method O2 Flow Rate 98.3 F 99 18 101/77 96 Nasal Cannula 3 03/24/23 03:00 03/24/23 03:00 03/24/23 03:00 03/24/23 03:00 03/24/23 03:00 03/24/23 03:00 03/24/23 03:00 Oxygen Flow Rate (L/min) 3 Oxygen Delivery Method Nasal Cannula Weight: 157 lb 13.616 oz Body Mass Index (BMI) 27.1 Intake & Output: Intake and Output for Last 24 Hours 03/22/23 03/23/23 03/24/23 23:59 23:59 23:59 Intake Total 4602.07 / 4602.07 290 / 290 Output Total 875 / 875 350 / 350 Balance 60 3727.07 / 3727.07 -60 / -60 Medical Nutrition Assessment Dietitian: Malnutrition Criteria Met Start: 03/23/23 10:09 Freq: Status: Active Protocol: Document 03/23/23 10:09 JOHANA (Rec: 03/23/23 10:09 JOHANA [id number]) Nutrition Malnutrition Evidence of Malnutrition Exists Yes Malnutrition (severe): Acute Illness/Injury Evidenced By Suboptimal Energy Intake ( Severe),Weight Loss (Severe), Physical Changes (Mild) Clinical Problem Acute Disease or Injury Related Malnutrition Etiology SUSPECTED r/t pt being sick and likely not consuming adequate energy and 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 Signs/Symptoms as evidenced by predicted po intake <50% of est nutritional needs x > 2 wk and Status Active Problem Altered Nutrient-Related Laboratory Values Etiology related to uncontrolled diabetes Signs/Symptoms as evidenced by A1c = 12.4 and gluc 408 today Status Active Problem Recommendation Dietitian Recommendations/Changes Rec Cardiac 1800 aaron CHO Control diet when able to resume po diet Will order 4 oz glucerna shake tid w/ medpass for increased nutrition if consumed.d/t suspected malnutrition Lab / Micro Data Attestation: I reviewed the patient's lab results. 03/23/23 03:55 03/23/23 11:30 Labs: Laboratory Results - last 24 hr 03/22/23 16:27: Diff Path Review Reviewed 03/23/23 03:55: Diff Path Review Reviewed, Hemoglobin A1c 12.4 H 03/23/23 05:05: Lactate Dehydrogenase 195, Total Protein 6.1 L, Globulin 4.1, Albumin/Globulin Ratio 0.5 L 03/23/23 06:58: POC Glucose 293 H 03/23/23 08:21: POC Glucose 259 H 03/23/23 11:24: POC Glucose 228 H 03/23/23 11:30: APTT 42.0 H, Sodium 146 H, Potassium 3.5, Chloride 115 H, Carbon Dioxide 23.0, Anion Gap 8, BUN 55 H, Creatinine 2.06 H, Estim Creat Clear Calc 2 3.95, Est GFR (MDRD) Af Amer 40 L, Est GFR (MDRD) Non-Af 33 L, BUN/Creatinine Ratio 26.7 H, Glucose 259 H, Calcium 8.3 L 03/23/23 16:54: POC Glucose 248 H 03/23/23 20:21: POC Glucose 173 H 03/23/23 22:27: APTT 44.2 H 03/24/23 05:24: POC Glucose 279 H Micro: Microbiology 03/23/23 05:25 Sputum, Expectorated/Coughed Gram Stain - Final 03/22/23 20:50 Mucosa - Nasopharyngeal Coronavirus COVID-19 PCR - Final 03/22/23 20:50 Mucosa - Nasopharyngeal Respiratory Panel (PCR) - Final 03/22/23 16:40 Urine, Clean Catch Legionella Antigen - Final 03/22/23 16:40 Urine, Clean Catch Streptococcus pneumoniae Antigen (M - Final 03/22/23 16:59 Nasal Secretion SARS-CoV-2 & FLU Antigen (Rapid) - Final Radiography Diagnostic Testing: Radiology Impression Echocardiogram 03/23/23 07:54 Interpretation Summary The estimated ejection fraction is 55 %. Unable to assess diastolic dysfunction. septal hypokinesis Ordering Physician: Silas Randolph Referring Physician: Berny Almanza Performed By: Jacqueline Kahn, ITZEL, RVT Physical Exam Const alert and no apparent distress Constitutional Narrative: Confused and restless in bed. HEENT normocephalic and head/scalp atraumatic General Ear: hearing grossly impaired Eyes PERRL, EOMs intact bilaterally and conjunctivae normal Neck supple General: trachea midline Chest inspection of chest normal Resp Effort and Inspection: tachypneic Auscultation: diminished lung sounds Cardio regular rate and regular rhythm GI normal to inspection, nondistended, normoactive bowel sounds Extremity no clubbing, cyanosis or edema Skin no rashes or lesions noted Neuro CN's II-XII intact bilaterally, moves all extremities and no focal motor deficits Psych Activity / Motor Behavior: restless Mood & Affect: flat affect Charges/Coding Visit Charges Inpatient E&M: 65082 Subs Hosp L2
[2023-03-24 07:01] LABS: Partial Thromboplast Time 46.4 Seconds (24.1-36.2)
[2023-03-24] MEDS: Budesonide Respules 0.5 MG/2 ML AMPUL.NEB. INHALATION ×2 (07:14→19:32)
[2023-03-24] MEDS: Heparin Injection (Vial) 5,000 UNIT/ML VIAL IV (07:49)
[2023-03-24 08:48] LABS: Hemoglobin 9.3 g/dL (13.0-16.5); Mean Corp Hgb Conc 32.1 g/dL (32-36); Mean Corpuscular Hgb 35.2 pg (27.0-32.0); Mean Corpuscular Volume 109.8 fL (80-94); Mean Platelet Vol. 12.4 fl (6.2-12.0); POSITIVE COUNT YES; Platelet Count 112 K/mm3 (150-450); RBC Distribution Width CV 15.4 % (11.6-14.6); RBC Distribution Width SD 62.1 fl (35.1-43.9); Red Blood Count 2.64 M/mm3 (4.6-6.2); White Blood Count 38.3 K/mm3 (4.4-11.0)
[2023-03-24 08:49] LABS: Scan Indicated on CBC? Y/N YES- FLAGS NOTED
[2023-03-24 08:55] LABS: Anion Gap 13 (5-15); BUN 58 mg/dL (7-18); Calcium,Total 8.4 mg/dL (8.5-10.1); Chloride 114 mmol/L (98-107); Creatinine, Serum 2.07 mg/dL (0.70-1.30); EST Glomerular Filtration Rate 33 mL/min (>60); Est Glom Filt Rate - Afr Amer 40 mL/min (>60); Estimated Creatinine Clearance 23.83 ml/min; Glucose 314 mg/dL (74-106); Potassium 3.3 mmol/L (3.5-5.1); Sodium Level 149 mmol/L (136-145)
[2023-03-24] MEDS: Insulin Glargine-YFGN 100 UNIT/ML Pen 15 UNIT SC (10:08)
[2023-03-24] MEDS: Pantoprazole Sodium 40 MG Tablet PO (10:10)
--- NOTE | 2023-03-24 11:08 | CASEMGMT ---
RN PHILIP Assessment: TC to pt for initial transition planning/care coordination assessment. RN PHILIP introduced self and role at [facility], pt voices understanding and consents to assessment. Care providers, pharmacy, and demographics verified/updated. Admitting Dx: loculated R effusion, infections, DKA? PCP:Cami Specialists:ISHMAELG, cardio; kamari Mckeon Preferred Pharmacy: [facility] [place] Insurance: [employer] [facility] Prescription Benefit: yes LNOK: Rosa Sommers, Living Arrangements: Pt lives with in a single story home with 3 steps to enter with a rail. Per , pt was I in ADL's prior to hospitalization. Transportation: Pt drives self and denies concerns with transportation. DME:cane, walker, oxygen through [employer] at 3L cont. Pt will bring in portable tank for homegoing. HHC/SNF: Pt has had HHC in the past but did not know which agency. Denies SNF stays. Pt states no concerns with going home at time of dc. Pt states pt does not have a BGM and has not been told he needs one. Also does not take insulin. Therapy was unable to eval pt today d/t being medically unstable. Pt states no further concerns/needs. She is aware CM will follow. Advised pt to ask CM if any further question/concerns/needs arise, voices understanding. Pt Goal: Home Plan: TBD, therapy to eval. Pt will need BGM at dc and education, follow for HHC.
[2023-03-24 11:51] LABS: Bedside Glucose 366 mg/dL (74-106)
[2023-03-24] MEDS: Dextrose 5%-Water (1000mL Bag) 1,000 ML 250 ML IV ×2 (11:51→15:55)
[2023-03-24] MEDS: Potassium Chloride 10mEq/100mL 10 MEQ/100 ML IV.SOLN. 100 MEQ IV BOLUS ×4 (11:52→16:11)
[2023-03-24] MEDS: Glucerna Shake 120 ML LIQUID PO ×2 (11:52→16:10)
--- NOTE | 2023-03-24 14:13 | PN.HOSP_ITS ---
Reason for Visit Reason for Visit: Diagnoses Type 2 diabetes mellitus with ketoacidosis without coma (03/22/23) Pleural effusion, not elsewhere classified (03/22/23) Subjective Subjective Patient seen at bedside this morning. Per nursing staff, patient had a mild aspiration event earlier this morning. He apparently was trying to eat while laying close to flat in bed, and felt like he choked on some food. Was noted to be rhonchorous bilaterally and required high flow nasal cannula up to 15 L after that. On my interview, patient was sitting up in bed with head of bed raised to about 60 degrees and was satting well on 4 L nasal cannula. Had received a breathing treatment prior to my arrival as well and this seemed to be helpful. No audible rhonchi were noted on my exam. Patient continues to be hard of hearing but appears more alert today than yesterday. He denies any acute pain or discomfort. Denies any fevers or chills. No other acute concerns currently. Objective Data Objective Data Vital Signs: Vital Signs Temp Pulse Resp BP Pulse Ox O2 Del Method O2 Flow Rate 97.7 F L 89 18 106/49 L 98 High Flow 3 03/24/23 13:10 03/24/23 13:10 03/24/23 13:10 03/24/23 13:10 03/24/23 13:10 03/24/23 13:10 03/24/23 13:10 Oxygen Flow Rate (L/min) 3 Oxygen Delivery Method High Flow Weight: 71.6 kg Body Mass Index (BMI) 27.1 Intake & Output: Intake and Output for Last 24 Hours 03/22/23 03/23/23 03/24/23 23:59 23:59 23:59 Intake Total 4602.07 / 460.07 536.4 / 536.4 Output Total 875 / 875 350 / 350 Balance 3727.07 / 3726.07 186.4 / 186.4 Medical Nutrition Assessment Dietitian: Malnutrition Criteria Met Start: 03/23/23 10:09 Freq: Status: Active Protocol: Document 03/23/23 10:09 JOHANA (Rec: 03/23/23 10:09 JOHANA [id number]) Nutrition Malnutrition Evidence of Malnutrition Exists Yes Malnutrition (severe): Acute Illness/Injury Evidenced By Suboptimal Energy Intake ( Severe),Weight Loss (Severe), Physical Changes (Mild) Clinical Problem Acute Disease or Injury Related Malnutrition Etiology SUSPECTED r/t pt being sick and likely not consuming adequate energy and 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 Signs/Symptoms as evidenced by predicted po intake <50% of est nutritional needs x > 2 wk and Status Active Problem Altered Nutrient-Related Laboratory Values Etiology related to uncontrolled diabetes Signs/Symptoms as evidenced by A1c = 12.4 and gluc 408 today Status Active Problem Recommendation Dietitian Recommendations/Changes Rec Cardiac 1800 aaron CHO Control diet when able to resume po diet Will order 4 oz glucerna shake tid w/ medpass for increased nutrition if consumed.d/t suspected malnutrition Lab / Micro Data 03/24/23 06:00 03/24/23 06:00 Labs: Laboratory Results - last 24 hr 03/22/23 16:27: Diff Path Review Reviewed 03/23/23 03:55: Diff Path Review Reviewed 03/23/23 16:54: POC Glucose 248 H 03/23/23 20:21: POC Glucose 173 H 03/23/23 22:27: APTT 44.2 H 03/24/23 05:24: POC Glucose 279 H 03/24/23 06:00: WBC 38.3 H*, RBC 2.64 L, Hgb 9.3 L, Hct 29.0 L, MCV 109.8 H, MCH 35.2 H, MCHC 32.1, RDW Std Deviation 62.1 H, RDW Coeff of Merry 15.4 H, Plt Count 112 L, MPV 12.4 H, Differential Comment , Diff Path Review May foll, APTT 46.4 H , Sodium 149 H, Potassium 3.3 L, Chloride 114 H, Carbon Dioxide 22.0, Anion Gap 13, BUN 58 H, Creatinine 2.07 H, Estim Creat Clear Calc 23.83, Est GFR (MDRD) Af Amer 40 L, Est GFR (MDRD) Non-Af 33 L, BUN/Creatinine Ratio 28.0 H, Glucose 314 H, Calcium 8.4 L 03/24/23 11:26: POC Glucose 366 H Micro: Microbiology 03/23/23 05:25 Sputum, Expectorated/Coughed Gram Stain - Final 03/23/23 05:25 Sputum, Expectorated/Coughed Respiratory Culture - Preliminary Gram negative anca 03/22/23 16:40 Urine, Clean Catch Urine Culture - Preliminary Culture exhibits no growth. 03/22/23 16:40 Urine, Clean Catch Legionella Antigen - Final 03/22/23 16:40 Urine, Clean Catch Streptococcus pneumoniae Antigen (M - Final 03/22/23 20:50 Mucosa - Nasopharyngeal Coronavirus COVID-19 PCR - Final 03/22/23 20:50 Mucosa - Nasopharyngeal Respiratory Panel (PCR) - Final 03/22/23 16:59 Nasal Secretion SARS-CoV-2 & FLU Antigen (Rapid) - Final Physical Exam Const alert Constitutional Narrative: Elderly male, sitting up in bed, alert, very hard of hearing, answering some questions appropriately, no acute distress. Satting well on 4 L nasal cannula, no increased work of breathing noted. HEENT normocephalic, head/scalp atraumatic, hearing grossly normal bilaterally, nasal mucous membranes and turbinates normal and moist oral mucous membranes Eyes PERRL, EOMs intact bilaterally and conjunctivae normal Neck full ROM, no lymphadenopathy and supple Lymph Lymphatic: no lymphadenopathy noted Chest inspection of chest normal Resp normal respiratory effort, normal air movement, no use of accessory muscles and clear to auscultation bilaterally Cardio regular rate, regular rhythm, no murmurs and peripheral pulses 2+ throughout GI normal to inspection, nondistended, normoactive bowel sounds, soft to palpation, non-tender and non-distended Back/Spine normal ROM Extremity normal to inspection, full ROM and no pedal edema Skin no rashes or lesions noted Assessment & Plan Assessment/Plan (1) Pleural effusion, right: PLAN: Plan Patient is an 82-year-old male with history of chronic respiratory failure secondary to COVID infection on home 3 L, hypertension, type 2 diabetes, CKD stage IIIb, HFpEF, 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 1. Community-acquired pneumonia with unknown organism, acute right loculated pleural effusion WBC count of 29 on admit. Low-grade fever, mild tachycardia, satting in mid to high 90s on 2 L nasal cannula on admit. CT chest/abdomen/pelvis without contrast showed a loculated right pleural effusion with associated atelectasis. Patient very confused since admission as noted below, patient's reported he had a productive cough with thick yellowish sputum along with generalized weakness for 2 to 3 weeks. COVID and flu negative, urine antigens negative. S/p 2 L of normal saline in the ED. Echo 03/23 showed normal EF, no acute changes from previous. ? Pulmonology following. Continue IV vancomycin and Zosyn. Unfortunately patient was unable to complete thoracentesis on 03/23 due to confusion and inability to cooperate for thoracentesis. Follow-up blood cultures and sputum culture. Monitor CBC and BMP daily. Hold on further fluids for now. Per pulmonology, if patient's pleural effusion does not improve with antimicrobial management, he may require outpatient referral to thoracic surgery for evaluation. 2. DKA, resolved; history of type 2 diabetes Presenting labs of glucose 702, bicarb 16, anion gap 16. Initiated on insulin drip on admission and admitted to the ICU. Anion gap closed by 03/23, trans itioned off insulin drip and transferred out of ICU. Patient's home medication regimen unclear. Hemoglobin A1c of 12.4%. ? Continue insulin glargine 15 units daily with sliding scale insulin, adjust as needed. Will need to establish home regimen on discharge. 3. Acute metabolic encephalopathy, improving Suspected secondary to acute infection as above with known underlying blindness and difficulty hearing. Unclear if patient has underlying dementia as well. ? Patient has remained much more calm since afternoon of 03/23. Continue delirium precautions and conservative measures to redirect patient as needed. Treating underlying infection as above. Can consider IV antipsychotics as ne eded. 4. New onset atrial fibrillation EKG on admission showed A-fib with PVCs, along with LAD and minimal LVH. Heart rate was 88 bpm. Started on heparin drip in the ED. Patient notably had echo in 06/2022 that showed normal EF of 55%, severe pulmonary hypertension but normal RV size and systolic function. Does have history of accelerated atrial junctional rhythm in the past and had atrial occlusion clip placed. ? Continue heparin drip. Will likely need oral anticoagulation on discharge. Follows with cardiology outpatient, can continue outpatient follow-up for now. Suspect new onset A-fib is primarily secondary to acute infection. Monitor telemetry. 5. CHRIST on CKD stage IIIb Prerenal CHRIST in setting of acute infection with poor p.o. intake as well as DKA as noted above. BUN 61, creatinine 2.67 on admit. Baseline creatinine around 1.5-1.6. ? Creatinine improving with IV fluids. Monitor BMP daily. 6. Chronic hypoxic respiratory failure on home 3 L nasal cannula ? Secondary to previous COVID infection. Chest x-ray on admit showed interstitial fibrosis that was stable, as well as acute loculated effusion as noted above. Continue supplemental oxygen, wean as able. Treat pneumonia as noted above. Continue home inhalers. 7. Debility ? PT/OT/case management following. Therapy unable to evaluate patient to this point due to medical instability. Per case management, patient has had home health care in the past but is never gone to SNF. Lives at home with his . Will await therapy evaluation prior to determining needs on discharge. Chronic medical conditions: ? Hypertension: Holding home losartan and Coreg for now, restart as able. ? Hard of hearing: Ensure patient has hearing aids in as much as able. ? Blindness: Per history. Complicates treatment. DVT prophylaxis: Heparin drip CODE STATUS: Full code, verified Expected disposition: TBD Total clinical time spent by myself addressing the patient's medical issues, reviewing all the data, and collaborating with patient's care team: 35 minutes. Charges/Coding Visit Charges Inpatient E&M: 31804 Subs Hosp L2
[2023-03-24 14:39] LABS: Partial Thromboplast Time 71.5 Seconds (24.1-36.2)
[2023-03-24] MEDS: Insulin Lispro 100 UNIT/ML INSULN.PEN 14 UNIT SC (17:16)
[2023-03-24 18:42] LABS: Bedside Glucose 457 mg/dL (74-106)
[2023-03-24] MEDS: Albuterol 2.5 MG/3 ML VIAL.NEB. INHALATION (19:32)
[2023-03-24] MEDS: HEPARIN/D5w 25,000 UNITS 25,000 UNITS/250 ML IV.SOLN. 13 UNITS CONT INF (20:41)
[2023-03-24 20:45] LABS: Bedside Glucose > 500 mg/dL (74-106)
[2023-03-24 21:45] LABS: Partial Thromboplast Time 69.7 Seconds (24.1-36.2)
[2023-03-24] MEDS: Vancomycin Trough/Random Due 1 LAB MC (22:31)
[2023-03-24 22:43] LABS: Vancomycin, Trough Level 9.4 ug/mL (5.0-15.0)
[2023-03-24] MEDS: Vancomycin HCl 750 MG in 0.9% Normal Saline (250mL Bag) 250 ML 250 MG IV (23:03)
[2023-03-24] MEDS: Menthol/Lanolin/Calamine/Znox 113 GM Tube 1 APPLIC TOPICAL (23:04)
--- NOTE | 2023-03-24 23:17 | PCM.RX.CS ---
Consult Antibiotic Management Pharmacy has been consulted to manage selected antiobiotic: Vancomycin Type of Intervention Type of Consult: Follow-up Labs Labs: Sodium 149 mmol/L (136-145) H 03/24/23 06:00 Potassium 3.3 mmol/L (3.5-5.1) L 03/24/23 06:00 Chloride 114 mmol/L (98-107) H 03/24/23 06:00 Carbon Dioxide 22.0 mmol/L (21.0-32.0) 03/24/23 06:00 Anion Gap 13 (5-15) 03/24/23 06:00 BUN 58 mg/dL (7-18) H 03/24/23 06:00 Creatinine 2.07 mg/dL (0.70-1.30) H 03/24/23 06:00 Est GFR (MDRD) Af Amer 40 mL/min (>60) L 03/24/23 06:00 Est GFR (MDRD) Non-Af 33 mL/min (>60) L 03/24/23 06:00 BUN/Creatinine Ratio 28.0 RATIO (10-20) H 03/24/23 06:00 Glucose 314 mg/dL (74-106) H 03/24/23 06:00 Vancomycin Trough 9.4 ug/mL (5.0-15.0) 03/24/23 22:00 Microbiology Microbiology: Microbiology 03/23/23 05:25 Sputum, Expectorated/Coughed Gram Stain - Final 03/23/23 05:25 Sputum, Expectorated/Coughed Respiratory Culture - Preliminary Gram negative anca 03/22/23 16:40 Urine, Clean Catch Urine Culture - Preliminary Culture exhibits no growth. 03/22/23 16:40 Urine, Clean Catch Legionella Antigen - Final 03/22/23 16:40 Urine, Clean Catch Streptococcus pneumoniae Antigen (M - Final 03/22/23 20:50 Mucosa - Nasopharyngeal Coronavirus COVID-19 PCR - Final 03/22/23 20:50 Mucosa - Nasopharyngeal Respiratory Panel (PCR) - Final 03/22/23 16:59 Nasal Secretion SARS-CoV-2 & FLU Antigen (Rapid) - Final Goal Trough Goal Trough: 15-20 mcg/mL Pharmacy Plan for Drug Dosing Pharmacy Plan for Drug Dosing: TROUGH 9.4 @ 26 HOURS. INCREASE TO 750 Q24H AND FOLLOW UP TROGIGH PRIOR TO 3RD DOSE Follow-Up Labs Follow-Up Labs: Trough: Vancomycin Date/Time Labs Ordered Labs to be done on [date and time ordered]: 03/26 @ 9015
[2023-03-25] VITALS (7 sets, daily range): BP systolic 101–125; BP diastolic 65–72; PULSE 84–94; RESP 14–24; TEMP 36.6–37.1; O2SAT 91–98; BMI 27.4
[2023-03-25] MEDS: Piperacil/Tazobactam 3.375 GM in 0.9% Normal Saline (50mL MB+) 50 ML IV ×3 (05:57→21:20)
[2023-03-25] MEDS: Insulin Lispro 100 UNIT/ML INSULN.PEN SC ×4 (05:58→21:17)
[2023-03-25] MEDS: Menthol/Lanolin/Calamine/Znox 113 GM Tube 1 APPLIC TOPICAL ×3 (05:58→21:16)
--- NOTE | 2023-03-25 06:02 | PCM.PN.INT ---
Assessment & Plan Assessment/Plan (1) DKA (diabetic ketoacidoses): QUALIFIERS: Diabetes mellitus type: type 2 Diabetes mellitus complication detail: without coma Qualified Code(s): E11.10 - Type 2 diabetes mellitus with ketoacidosis without coma (2) Pleural effusion, right: PLAN: Plan RECOMMENDATIONS: 1. Continue basal and sliding scale insulin coverage. Continue Accu-Cheks as ordered. 2. Continue empiric broad-spectrum antimicrobials. 3. Wean supplemental oxygen to maintain saturations at or above 90%. 4. Encourage incentive spirometer use and mobilize patient as tolerated. 5. Continue scheduled budesonide aerosols and as needed albuterol. 6. Dietary advancement per speech therapy recommendations. Maintain aspiration precautions. IMPRESSIONS: 1. Diabetic ketoacidosis Resolved at this time. Anion gap has been closed. The patient has been initiated on basal and sliding scale insulin coverage, which will be continued. The patient will require diabetic education, given that he has a hemoglobin A1c of greater than 12. 2. Acute on chronic kidney disease Most likely prerenal in etiology in the setting of #1. Continue to monitor urine output. No current indication for renal replacement therapy. 3. Loculated right-sided pleural effusion/history of asthma/chronic hypoxemic respiratory failure The patient has a loculated right-sided pleural effusion on CT imaging of the chest, which could be related to underlying cardiac etiologies and/or a parapneumonic effusion. The patient has already been initiated on broad-spectrum antimicrobials. Unfortunately, the patient was unable to tolerate an attempted an ultrasound-guided thoracentesis on March 23. Echocardiogram revealed normal ejection fraction. Plan to continue current supportive measures and aerosol treatments as ordered. If the patient's pleural effusion does not improve with antimicrobial management, he may require outpatient referral to thoracic surgery for evaluation. Recommend follow-up chest imaging in 6 to 8 weeks after completing his antibiotic treatment course. 4. Troponin elevation Most likely secondary to demand ischemia. Echocardiogram was unrevealing. This note was generated with [employer] dictation software. It may contain incorrect words, spelling, and punctuation that were not noted in checking the note before signing. Subjective Subjective The patient was seen and examined at the bedside this morning. Events from the last 24 hours have been reviewed. The patient is currently afebrile, hemodynamically stable and maintaining appropriate oxygen saturations on 3 L/min via nasal cannula. The patient is more alert and interactive this morning. He continues to have a cough and reported ongoing choking. The patient was evaluated by speech therapy yesterday. Objective Data Objective Data The patient's most recent lab work, culture data and imaging studies have all been personally reviewed. Surface echocardiogram demonstrated normal LV size and thickness with an ejection fraction of 55%. Pulmonary artery systolic pressure was estimated to be 65 mmHg. Blood and sputum cultures are pending. Vital Signs: Vital Signs Temp Pulse Resp BP Pulse Ox O2 Del Method O2 Flow Rate 98.7 F 89 18 101/66 98 Nasal Cannula 3 03/25/23 03:31 03/25/23 03:31 03/25/23 03:31 03/25/23 03:31 03/25/23 03:31 03/25/23 03:31 03/25/23 03:31 Oxygen Flow Rate (L/min) 3 Oxygen Delivery Method Nasal Cannula Weight: 157 lb 13.616 oz Body Mass Index (BMI) 27.1 Intake & Output: Intake and Output for Last 24 Hours 03/23/23 03/24/23 03/25/23 23:59 23:59 23:59 Intake Total 4602.07 / 4602.07 2156.67 / 2156.67 315 / 315 Output Total 875 / 875 850 / 850 Balance 3727.07 / 3727.07 1306.67 / 1306.67 315 / 315 Medical Nutrition Assessment Dietitian: Malnutrition Criteria Met Start: 03/23/23 10:09 Freq: Status: Active Protocol: Document 03/23/23 10:09 JOHANA (Rec: 03/23/23 10:09 JOHANA [id number]) Nutrition Malnutrition Evidence of Malnutrition Exists Yes Malnutrition (severe): Acute Illness/Injury Evidenced By Suboptimal Energy Intake ( Severe),Weight Loss (Severe), Physical Changes (Mild) Clinical Problem Acute Disease or Injury Related Malnutrition Etiology SUSPECTED r/t pt being sick and likely not consuming adequate energy and 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 Signs/Symptoms as evidenced by predicted po intake <50% of est nutritional needs x > 2 wk and Status Active Problem Altered Nutrient-Related Laboratory Values Etiology related to uncontrolled diabetes Signs/Symptoms as evidenced by A1c = 12.4 and gluc 408 today Status Active Problem Recommendation Dietitian Recommendations/Changes Rec Cardiac 1800 aaron CHO Control diet when able to resume po diet Will order 4 oz glucerna shake tid w/ medpass for increased nutrition if consumed.d/t suspected malnutrition Lab / Micro Data Attestation: I reviewed the patient's lab results. 03/24/23 06:00 03/24/23 06:00 Labs: Laboratory Results - last 24 hr 03/24/23 06:00: WBC 38.3 H*, RBC 2.64 L, Hgb 9.3 L, Hct 29.0 L, MCV 109.8 H, MCH 35.2 H, MCHC 32.1, RDW Std Deviation 62.1 H, RDW Coeff of Merry 15.4 H, Plt Count 112 L, MPV 12.4 H, Differential Comment , Diff Path Review October, APTT 46.4 H, Sodium 149 H, Potassium 3.3 L, Chloride 114 H, Carbon Dioxide 22.0, Anion Gap 13, BUN 58 H, Creatinine 2.07 H, Estim Creat Clear Calc 23.83, Est GFR (MDRD) Af Amer 40 L, Est GFR (MDRD) Non-Af 33 L, BUN/Creatinine Ratio 28.0 H, Glucose 314 H, Calcium 8.4 L 03/24/23 11:26: POC Glucose 366 H 03/24/23 14:12: APTT 71.5 H 03/24/23 18:20: POC Glucose 457 H* 03/24/23 20:25: POC Glucose > 500 H* 03/24/23 20:35: APTT 69.7 H 03/24/23 22:00: Vancomycin Trough 9.4 Micro: Microbiology 03/23/23 05:25 Sputum, Expectorated/Coughed Gram Stain - Final 03/23/23 05:25 Sputum, Expectorated/Coughed Respiratory Culture - Preliminary Gram negative anca 03/22/23 16:40 Urine, Clean Catch Urine Culture - Preliminary Culture exhibits no growth. 03/22/23 16:40 Urine, Clean Catch Legionella Antigen - Final 03/22/23 16:40 Urine, Clean Catch Streptococcus pneumoniae Antigen (M - Final 03/22/23 20:50 Mucosa - Nasopharyngeal Coronavirus COVID-19 PCR - Final 03/22/23 20:50 Mucosa - Nasopharyngeal Respiratory Panel (PCR) - Final 03/22/23 16:59 Nasal Secretion SARS-CoV-2 & FLU Antigen (Rapid) - Final Radiography Diagnostic Testing: Radiology Impression Echocardiogram 03/23/23 07:54 Interpretation Summary The estimated ejection fraction is 55 %. Unable to assess diastolic dysfunction. septal hypokinesis Ordering Physician: Silas Randolph Referring Physician: Berny Almanza Performed By: Jacqueline Kahn RDCS, RVT Physical Exam Const alert and no apparent distress General Appearance: cooperative HEENT normocephalic and head/scalp atraumatic General Ear: hearing grossly impaired Eyes PERRL, EOMs intact bilaterally and conjunctivae normal Neck supple General: trachea midline Chest inspection of chest normal Resp normal respiratory effort Effort and Inspection: actively coughing Auscultation: diminished lung sounds Cardio regular rate and regular rhythm GI normal to inspection, nondistended, normoactive bowel sounds Extremity no clubbing, cyanosis or edema Skin no rashes or lesions noted Neuro CN's II-XII intact bilaterally, moves all extremities and no focal motor deficits Psych Mood & Affect: flat affect Charges/Coding Visit Charges Inpatient E&M: 18910 Subs Hosp L2
[2023-03-25 06:12] LABS: Bedside Glucose 434 mg/dL (74-106)
[2023-03-25] MEDS: Budesonide Respules 0.5 MG/2 ML AMPUL.NEB. INHALATION ×2 (07:10→19:38)
[2023-03-25 07:45] LABS: Hemoglobin 8.7 g/dL (13.0-16.5); Mean Corp Hgb Conc 31.1 g/dL (32-36); Mean Corpuscular Hgb 34.5 pg (27.0-32.0); Mean Corpuscular Volume 111.1 fL (80-94); POSITIVE COUNT YES; Platelet Count 123 K/mm3 (150-450); RBC Distribution Width CV 15.6 % (11.6-14.6); RBC Distribution Width SD 64.5 fl (35.1-43.9); Red Blood Count 2.52 M/mm3 (4.6-6.2); White Blood Count 37.5 K/mm3 (4.4-11.0)
[2023-03-25 07:49] LABS: Scan Indicated on CBC? Y/N YES- FLAGS NOTED
[2023-03-25 08:04] LABS: Anion Gap 11 (5-15); BUN 61 mg/dL (7-18); BUN/Creat Ratio 23.4 RATIO (10-20); Calcium,Total 8.8 mg/dL (8.5-10.1); Chloride 110 mmol/L (98-107); Creatinine, Serum 2.61 mg/dL (0.70-1.30); EST Glomerular Filtration Rate 25 mL/min (>60); Est Glom Filt Rate - Afr Amer 31 mL/min (>60); Glucose 494 mg/dL (74-106); Potassium 3.5 mmol/L (3.5-5.1); Sodium Level 141 mmol/L (136-145)
[2023-03-25 08:15] LABS: Partial Thromboplast Time 52.8 Seconds (24.1-36.2)
[2023-03-25 08:33] LABS: Bedside Glucose 384 mg/dL (74-106)
[2023-03-25] MEDS: Insulin Lispro 100 UNIT/ML INSULN.PEN 12 UNIT SC (08:41)
[2023-03-25] MEDS: Insulin Glargine-YFGN 100 UNIT/ML Pen 15 UNIT SC (08:43)
[2023-03-25] MEDS: Pantoprazole Sodium 40 MG Tablet PO (10:03)
[2023-03-25 11:45] LABS: Bedside Glucose 333 mg/dL (74-106)
[2023-03-25 14:26] LABS: Partial Thromboplast Time 84.9 Seconds (24.1-36.2)
--- NOTE | 2023-03-25 15:13 | PN.HOSP_ITS ---
Reason for Visit Reason for Visit: Diagnoses Type 2 diabetes mellitus with ketoacidosis without coma (03/22/23) Pleural effusion, not elsewhere classified (03/22/23) Subjective Subjective Patient seen at bedside this morning. Sitting up in bed, appears very fatigued but otherwise comfortable, very hard of hearing but answering questions appropr iately, no acute distress. No acute concerns this morning. Objective Data Objective Data Vital Signs: Vital Signs Temp Pulse Resp BP Pulse Ox O2 Del Method O2 Flow Rate 98 F 89 14 111/65 95 Nasal Cannula 3 03/25/23 10:00 03/25/23 10:00 03/25/23 10:00 03/25/23 10:00 03/25/23 10:00 03/25/23 10:00 03/25/23 08:49 Oxygen Flow Rate (L/min) 3 Oxygen Delivery Method Nasal Cannula Weight: 72.6 kg Body Mass Index (BMI) 27.4 Intake & Output: Intake and Output for Last 24 Hours 03/23/23 03/24/23 03/25/23 23:59 23:59 23:59 Intake Total 4602.07 / 4602.07 2156.67 / 2156.67 845.48 / 845.48 Output Total 875 / 875 850 / 850 350 / 350 Balance 3727.07 / 3727.07 1306.67 / 1306.67 495.48 / 495.48 Medical Nutrition Assessment Dietitian: Malnutrition Criteria Met Start: 03/23/23 10:0 9 Freq: Status: Active Protocol: Document 03/23/23 10:09 JOHANA (Rec: 03/23/23 10:09 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 Signs/Symptoms as evidenced by predicted po intake <50% of est nutritional needs x > 2 wk and Status Active Problem Altered Nutrient-Related Laboratory Values Etiology related to uncontrolled diabetes Signs/Symptoms as evidenced by A1c = 12.4 and gluc 408 today Status Active Problem Recommendation Dietitian Recommendations/Changes Rec Cardiac 1800 aaron CHO Control diet when able to resume po diet Will order 4 oz glucerna shake tid w/ medpass for increased nutrition if consumed.d/t suspected malnutrition Lab / Micro Data 03/25/23 06:20 03/25/23 06:20 Labs: Laboratory Results - last 24 hr 03/24/23 18:20: POC Glucose 457 H* 03/24/23 20:25: POC Glucose > 500 H* 03/24/23 20:35: APTT 69.7 H 03/24/23 22:00: Vancomycin Trough 9.4 03/25/23 05:53: POC Glucose 434 H 03/25/23 06:20: WBC 37.5 H*, RBC 2.52 L, Hgb 8.7 L, Hct 28.0 L, MCV 111.1 H, MCH 34.5 H, MCHC 31.1 L, RDW Std Deviation 64.5 H, RDW Coeff of Merry 15.6 H, Plt Count 123 L, MPV 13.0 H, Differential Comment , Diff Path Review October, APTT 52.8 H, Sodium 141, Potassium 3.5, Chloride 110 H, Carbon Dioxide 20.0 L, Anion Gap 11, BUN 61 H, Creatinine 2.61 H, Estim Creat Clear Calc 18.90, Est GFR (MDRD) Af Amer 31 L, Est GFR (MDRD) Non-Af 25 L, BUN/Creatinine Ratio 23.4 H, Glucose 494 H*, Calcium 8.8 03/25/23 08:15: POC Glucose 384 H 03/25/23 11:22: POC Glucose 333 H 03/25/23 13:50: APTT 84.9 H Micro: Microbiology 03/22/23 22:22 Blood Culture (Wb) - Right Forearm Blood Culture - Preliminary No growth in 48 hours. 03/22/23 20:57 Blood Culture (Wb) - Anticubital Right Blood Culture - Prel iminary No growth in 48 hours. 03/23/23 05:25 Sputum, Expectorated/Coughed Gram Stain - Final 03/23/23 05:25 Sputum, Expectorated/Coughed Respiratory Culture - Final Enterobacter cloacae complex 03/22/23 16:40 Urine, Clean Catch Urine Culture - Final Culture exhibits no growth. 03/22/23 16:40 Urine, Clean Catch Legionella Antigen - Final 03/22/23 16:40 Urine, Clean Catch Streptococcus pneumoniae Antigen (M - Final 03/22/23 20:50 Mucosa - Nasopharyngeal Coronavirus COVID-19 PCR - Final 03/22/23 20:50 Mucosa - Nasopharyngeal Respiratory Panel (PCR) - Final 03/22/23 16:59 Nasal Secretion SARS-CoV-2 & FLU Antigen (Rapid) - Final Physical Exam Const alert Constitutional Narrative: Elderly male, sitting up in bed, alert but fatigued appearing, very hard of hearing, answering some questions appropriately, no acute distress. Satting well on 4 L nasal cannula, no increased work of breathing noted. HEENT normocephalic, head/scalp atraumatic, hearing grossly normal bilaterally, nasal mucous membranes and turbinates normal and moist oral mucous membranes Eyes PERRL, EOMs intact bilaterally and conjunctivae normal Neck full ROM, no lymphadenopathy and supple Lymph Lymphatic: no lymphadenopathy noted Chest inspection of chest normal Resp normal respiratory effort, normal air movement, no use of accessory muscles and clear to auscultation bilaterally Cardio regular rate, regular rhythm, no murmurs and peripheral pulses 2+ throughout GI normal to inspection, nondistended, normoactive bowel sounds, soft to palpation, non-tender and non-distended Back/Spine normal ROM Extremity normal to inspection, full ROM and no pedal edema Skin no rashes or lesions noted Assessment & Plan Assessment/Plan (1) Pleural effusion, right: PLAN: Plan Patient is an 82-year-old male with history of chronic respiratory failure secondary to COVID infection on home 3 L, hypertension, type 2 diabetes, CKD stage IIIb, HFpEF, 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 1. Community-acquired pneumonia with unknown organism, acute right loculated pleural effusion WBC count of 29 on admit. Low-grade fever, mild tachycardia, satting in mid to high 90s on 2 L nasal cannula on admit. CT chest/abdomen/pelvis without contrast showed a loculated right pleural effusion with associated atelectasis. Patient very confused since admission as noted below, patient's reported he had a productive cough with thick yellowish sputum along with generalized weakness for 2 to 3 weeks. COVID and flu negative, urine antigens negative. S/p 2 L of normal saline in the ED. Echo 03/23 showed normal EF, no acute changes from previous. ? Pulmonology following. Continue IV vancomycin and Zosyn. Unfortunately patient was unable to complete thoracentesis on 03/23 due to confusion and inability to cooperate for thoracentesis. Follow-up blood cultures and sputum culture. Monitor CBC and BMP daily. Hold on further fluids for now. Per pulmonology, if patient's pleural effusion does not improve with antimicrobial management, he may require outpatient referral to thoracic surgery for evaluation. 2. DKA, resolved; history of type 2 diabetes Presenting labs of glucose 702, bicarb 16, anion gap 16. Initiated on insulin drip on admission and admitted to the ICU. Anion gap closed by 03/23, lee sitioned off insulin drip and transferred out of ICU. Patient's home medication regimen unclear. Hemoglobin A1c of 12.4%. ? Continue insulin glargine 15 units daily with sliding scale insulin. Will need to establish home regimen on discharge. Patient notably had some episodes of hypoglycemia on 03/24 and 03/25, corrected with sliding scale insulin, adjust sliding scale insulin regimen as needed. 3. Acute metabolic encephalopathy, improving Suspected secondary to acute infection as above with known underlying blindness and difficulty hearing. Unclear if patient has underlying dementia as well. ? Patient has remained much more calm since afternoon of 03/23. Continue delirium precautions and conservative measures to redirect patient as needed. Treating underlying infection as above. Can consider IV antipsychotics as needed. 4. New onset atrial fibrillation EKG on admission showed A-fib with PVCs, along with LAD and minimal LVH. Heart rate was 88 bpm. Started on heparin drip in the ED. Patient notably had echo in 06/2022 that showed normal EF of 55%, severe pulmonary hypertension but normal RV size and systolic function. Does have history of accelerated atrial junctio nal rhythm in the past and had atrial occlusion clip placed. ? Continue heparin drip. Will likely need oral anticoagulation on discharge. Follows with cardiology outpatient, can continue outpatient follow-up for now. Suspect new onset A-fib is primarily secondary to acute infection. Monitor tele metry. 5. CHRIST on CKD stage IIIb Prerenal CHRIST in setting of acute infection with poor p.o. intake as well as DKA as noted above. BUN 61, creatinine 2.67 on admit. Baseline creatinine around 1.5-1.6. ? Creatinine improving with IV fluids. Monitor BMP daily. 6. Chronic hypoxic respiratory failure on home 3 L nasal cannula ? Secondary to previous COVID infection. Chest x-ray on admit showed interstitial fibrosis that was stable, as well as acute loculated effusion as noted above. Continue supplemental oxygen, wean as able. Treat pneumonia as noted above. Continue home inhalers. 7. Debility ? PT/OT/case management following. Therapy unable to evaluate patient to this point due to medical instability. Per case management, patient has had home health care in the past but is never gone to SNF. Lives at home with his . Will await therapy evaluation prior to determining needs on discharge. Chronic medical conditions: ? Hypertension: Holding home losartan and Coreg for now, restart as able. ? Hard of hearing: Ensure patient has hearing aids in as much as able. ? Blindness: Per history. Complicates treatment. DVT prophylaxis: Heparin drip CODE STATUS: Full code, verified Expected disposition: Home with home health care versus SNF, TBD Total clinical time spent by myself addressing the patient's medical issues, reviewing all the data, and collaborating with patient's care team: 35 minutes. Charges/Coding Visit Charges Inpatient E&M: 97592 Subs Hosp L2
[2023-03-25] MEDS: Glucerna Shake 120 ML LIQUID PO (16:31)
[2023-03-25 16:53] LABS: Bedside Glucose 264 mg/dL (74-106)
[2023-03-25] MEDS: HEPARIN/D5w 25,000 UNITS 25,000 UNITS/250 ML IV.SOLN. 13 UNITS CONT INF (17:57)
[2023-03-25 20:36] LABS: Partial Thromboplast Time 38.9 Seconds (24.1-36.2)
[2023-03-25] MEDS: Heparin Injection (Vial) 5,000 UNIT/ML VIAL IV (20:55)
[2023-03-25 22:26] LABS: Bedside Glucose 329 mg/dL (74-106)
[2023-03-26] VITALS (7 sets, daily range): BP systolic 99–116; BP diastolic 63–67; PULSE 75–89; RESP 16–24; TEMP 36.6–37.1; O2SAT 93–97; BMI 27.6
[2023-03-26] MEDS: Vancomycin HCl 750 MG in 0.9% Normal Saline (250mL Bag) 250 ML 250 MG IV (00:24)
[2023-03-26] MEDS: Insulin Lispro 100 UNIT/ML INSULN.PEN SC ×5 (03:17→21:37)
[2023-03-26 03:26] LABS: Hematocrit 30.4 % (40-54); Hemoglobin 9.7 g/dL (13.0-16.5); Mean Corp Hgb Conc 31.9 g/dL (32-36); Mean Corpuscular Hgb 34.4 pg (27.0-32.0); Mean Corpuscular Volume 107.8 fL (80-94); POSITIVE COUNT YES; Platelet Count 121 K/mm3 (150-450); RBC Distribution Width CV 15.5 % (11.6-14.6); RBC Distribution Width SD 62.2 fl (35.1-43.9); Red Blood Count 2.82 M/mm3 (4.6-6.2); White Blood Count 40.6 K/mm3 (4.4-11.0)
[2023-03-26 03:42] LABS: Partial Thromboplast Time 64.8 Seconds (24.1-36.2); Scan Indicated on CBC? Y/N YES- FLAGS NOTED
[2023-03-26 03:55] LABS: Anion Gap 8 (5-15); BUN 68 mg/dL (7-18); BUN/Creat Ratio 22.8 RATIO (10-20); Chloride 112 mmol/L (98-107); Creatinine, Serum 2.98 mg/dL (0.70-1.30); EST Glomerular Filtration Rate 22 mL/min (>60); Est Glom Filt Rate - Afr Amer 26 mL/min (>60); Estimated Creatinine Clearance 16.55 ml/min; Glucose 336 mg/dL (74-106); Potassium 3.6 mmol/L (3.5-5.1); Sodium Level 143 mmol/L (136-145)
[2023-03-26] MEDS: Piperacil/Tazobactam 3.375 GM in 0.9% Normal Saline (50mL MB+) 50 ML IV ×3 (05:14→21:26)
[2023-03-26] MEDS: Menthol/Lanolin/Calamine/Znox 113 GM Tube 1 APPLIC TOPICAL ×3 (05:14→21:27)
[2023-03-26 06:30] LABS: Bedside Glucose 312 mg/dL (74-106)
[2023-03-26] MEDS: Budesonide Respules 0.5 MG/2 ML AMPUL.NEB. INHALATION ×2 (06:59→20:27)
[2023-03-26 07:01] LABS: Bedside Glucose 275 mg/dL (74-106)
[2023-03-26 08:10] LABS: Bedside Glucose 452 mg/dL (74-106)
[2023-03-26 08:10] LABS: Bedside Glucose 489 mg/dL (74-106)
[2023-03-26] MEDS: Pantoprazole Sodium 40 MG Tablet PO (08:51)
[2023-03-26] MEDS: Insulin Glargine-YFGN 100 UNIT/ML Pen 15 UNIT SC ×2 (08:51→23:08)
--- NOTE | 2023-03-26 08:52 | PCM.PN.INT ---
Assessment & Plan Assessment/Plan (1) DKA (diabetic ketoacidoses): QUALIFIERS: Diabetes mellitus type: type 2 Diabetes mellitus complication detail: without coma Qualified Code(s): E11.10 - Type 2 diabetes mellitus with ketoacidosis without coma (2) Pleural effusion, right: PLAN: Plan RECOMMENDATIONS: 1. Continue basal and sliding scale insulin coverage. Continue Accu-Cheks as ordered. 2. Consider transition to high-dose Levaquin versus ID consult 3. Wean supplemental oxygen to maintain saturations at or above 90%. 4. Encourage incentive spirometer use and mobilize patient as tolerated. 5. Continue scheduled budesonide aerosols and as needed albuterol. 6. Dietary advancement per speech therapy recommendations. Maintain aspiration precautions. IMPRESSIONS: 1. Diabetic ketoacidosis Resolved at this time. Anion gap has been closed. The patient has been initiated on basal and sliding scale insulin coverage, which will be continued. The patient will require diabetic education, given that he has a hemoglobin A1c of greater than 12. Blood sugars are marginally controlled, but there is no signs of DKA. Blood sugars will be difficult to control given problem #3. 2. Acute on chronic kidney disease Most likely prerenal in etiology in the setting of #1. Continue to monitor urine output. No current indication for renal replacement therapy. Patient may have an element of osmotic diuresis, blood sugars. 3. Loculated right-sided pleural effusion/history of asthma/chronic hypoxemic respiratory failure The patient has a loculated right-sided pleural effusion on CT imaging of the chest, which could be related to underlying cardiac etiologies and/or a parapneumonic effusion. The patient has already been initiated on broad-spectrum antimicrobials. Unfortunately, the patient was unable to tolerate an attempted an ultrasound-guided thoracentesis on March 23. Echocardiogram revealed normal ejection fraction. Plan to continue current supportive measures and aerosol treatments as ordered. Could consider transition to Levaquin 750 mg p.o. daily versus an ID consult as patient may require protracted antibiotics. Previous PFT in 2018 did not show any obstructive lung disease. 4. Troponin elevation Most likely secondary to demand ischemia. Echocardiogram was unrevealing. Patient could have an outpatient work-up, but likely not necessary to have an inpatient work-up. This note was generated with [employer] software. It may contain incorrect words, spelling, and punctuation that were not noted in checking the note before signing. Subjective Subjective Patient did okay overnight. Patient subjectively feels improved compared to previous. Patient states he has had a cough with intermittent production. No pain has been reported. Objective Data Objective Data Vital Signs: Vital Signs Temp Pulse Resp BP Pulse Ox O2 Del Method O2 Flow Rate 37.1 C 86 16 99/65 97 Nasal Cannula 2 03/26/23 08:47 03/26/23 08:47 03/26/23 08:47 03/26/23 08:47 03/26/23 08:47 03/26/23 08:47 03/26/23 08:47 Oxygen Flow Rate (L/min) 2 Oxygen Delivery Method Nasal Cannula Weight: 73.2 kg Body Mass Index (BMI) 27.6 Intake & Output: Intake and Output for Last 24 Hours 03/24/23 03/25/23 03/26/23 23:59 23:59 23:59 Intake Total 2156.67 / 2156.67 1303.57 / 1303.57 315.00 / 315.00 Output Total 850 / 850 750 / 750 420 / 420 Balance 1306.67 / 1306.67 553.57 / 553.57 -105.00 / -105.00 Medical Nutrition Assessment Dietitian: Malnutrition Criteria Met Start: 03/23/23 10:09 Freq: Status: Active Protocol: Document 03/23/23 10:09 JOHANA (Rec: 03/23/23 10:09 JOHANA [id number]) Nutrition Malnutrition Evidence of Malnutrition Exists Yes Malnutrition (severe): Acute Illness/Injury Evidenced By Suboptimal Energy Intake ( Severe),Weight Loss (Severe), Physical Changes (Mild) Clinical Problem Acute Disease or Injury Related Malnutrition Etiology SUSPECTED r/t pt being sick and likely not consuming adequate energy and 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 Signs/Symptoms as evidenced by predicted po intake <50% of est nutritional needs x > 2 wk and Status Active Problem Altered Nutrient-Related Laboratory Values Etiology related to uncontrolled diabetes Signs/Symptoms as evidenced by A1c = 12.4 and gluc 408 today Status Active Problem Recommendation Dietitian Recommendations/Changes Rec Cardiac 1800 aaron CHO Control diet when able to resume po diet Will order 4 oz glucerna shake tid w/ medpass for increased nutrition if consumed.d/t suspected malnutrition Lab / Micro Data Attestation: I reviewed the patient's lab results. 03/26/23 03:15 03/26/23 03:15 Labs: Laboratory Results - last 24 hr 03/24/23 16:07: POC Glucose 489 H* 03/24/23 16:08: POC Glucose 452 H* 03/25/23 11:22: POC Glucose 333 H 03/25/23 13:50: APTT 84.9 H 03/25/23 16:31: POC Glucose 264 H 03/25/23 20:22: APTT 38.9 H 03/25/23 21:04: POC Glucose 329 H 03/26/23 03:15: WBC 40.6 H*, RBC 2.82 L, Hgb 9.7 L, Hct 30.4 L, MCV 107.8 H, MCH 34.4 H, MCHC 31.9 L, RDW Std Deviation 62.2 H, RDW Coeff of Merry 15.5 H, Plt Count 121 L, MPV 13.0 H, Diff Path Review October, APTT 64.8 H, Sodium 143, Potassium 3.6, Chloride 112 H, Carbon Dioxide 23.0, Anion Gap 8, BUN 68 H, Creatinine 2.98 H, Estim Creat Clear Calc 16.55, Est GFR (MDRD) Af Amer 26 L, Est GFR (MDRD) Non-Af 22 L, BUN/Creatinine Ratio 22.8 H, Glucose 336 H, Calcium 9.0, POC Glucose 312 H 03/26/23 06:32: POC Glucose 275 H Micro: Microbiology 03/22/23 22:22 Blood Culture (Wb) - Right Forearm Blood Culture - Preliminary No growth in 48 hours. 03/22/23 20:57 Blood Culture (Wb) - Anticubital Right Blood Culture - Preliminary No growth in 48 hours. 03/23/23 05:25 Sputum, Expectorated/Coughed Gram Stain - Final 03/23/23 05:25 Sputum, Expectorated/Coughed Respiratory Culture - Final Enterobacter cloacae complex 03/22/23 16:40 Urine, Clean Catch Urine Culture - Final Culture exhibits no growth. 03/22/23 16:40 Urine, Clean Catch Legionella Antigen - Final 03/22/23 16:40 Urine, Clean Catch Streptococcus pneumoniae Antigen (M - Final 03/22/23 20:50 Mucosa - Nasopharyngeal Coronavirus COVID-19 PCR - Final 03/22/23 20:50 Mucosa - Nasopharyngeal Respiratory Panel (PCR) - Final 03/22/23 16:59 Nasal Secretion SARS-CoV-2 & FLU Antigen (Rapid) - Final Physical Exam Const alert and no apparent distress Constitutional Narrative: Confused and restless in bed. General Appearance: cooperative HEENT normocephalic and head/scalp atraumatic Eyes PERRL, EOMs intact bilaterally and conjunctivae normal Neck supple General: trachea midline Chest inspection of chest normal Resp normal respiratory effort Effort and Inspection: tachypneic and actively coughing Auscultation: diminished lung sounds Cardio regular rate and regular rhythm GI normal to inspection, nondistended, normoactive bowel sounds Extremity no clubbing, cyanosis or edema Skin no rashes or lesions noted Neuro CN's II-XII intact bilaterally, moves all extremities and no focal motor deficits Psych cooperative and affect normal Activity / Motor Behavior: restless Mood & Affect: flat affect Charges/Coding Visit Charges Inpatient E&M: 75953 Subs Hosp L2
[2023-03-26] MEDS: Glucerna Shake 120 ML LIQUID PO ×2 (08:54→11:12)
--- NOTE | 2023-03-26 09:07 | PN.HOSP_ITS ---
Reason for Visit Reason for Visit: Diagnoses Type 2 diabetes mellitus with ketoacidosis without coma (03/22/23) Pleural effusion, not elsewhere classified (03/22/23) Subjective Subjective Breathing well. Objective Data Objective Data Vital Signs: Vital Signs Temp Pulse Resp BP Pulse Ox O2 Del Method O2 Flow Rate 37.1 C 86 16 99/65 97 Nasal Cannula 2 03/26/23 08:47 03/26/23 08:47 03/26/23 08:47 03/26/23 08:47 03/26/23 08:47 03/26/23 08:47 03/26/23 08:47 Oxygen Flow Rate (L/min) 2 Oxygen Delivery Method Nasal Cannula Weight: 73.2 kg Body Mass Index (BMI) 27.6 Intake & Output: Intake and Output for Last 24 Hours 03/24/23 03/25/23 03/26/23 23:59 23:59 23:59 Intake Total 2156.67 / 2156.67 1303.57 / 1303.57 315.00 / 315.00 Output Total 850 / 850 750 / 750 420 / 420 Balance 1306.67 / 1306.67 553.57 / 553.57 -105.00 / -105.00 Medical Nutrition Assessment Dietitian: Malnutrition Criteria Met Start: 03/23/23 10:09 Freq: Status: Active Protocol: Document 03/23/23 10:09 JOHANA (Rec: 03/23/23 10:09 JOHANA [id number]) Nutrition Malnutrition Evidence of Malnutrition Exists Yes Malnutrition (severe): Acute Illness/Injury Evidenced By Suboptimal Energy Intake ( Severe),Weight Loss (Severe), Physical Changes (Mild) Clinical Problem Acute Disease or Injury Related Malnutrition Etiology SUSPECTED r/t pt being sick and likely not consuming adequate energy and 6.3% unintended wt loss in < 2-3 wks [employer] - appears to have muscle/fat loss in face. Signs/Symptoms as evidenced by predicted po intake <50% of est nutritional needs x > 2 wk and Status Active Problem Altered Nutrient-Related Laboratory Values Etiology related to uncontrolled diabetes Signs/Symptoms as evidenced by A1c = 12.4 and gluc 408 today Status Active Problem Recommendation Dietitian Recommendations/Changes Rec Cardiac 1800 aaron CHO Control diet when able to resume po diet Will order 4 oz glucerna shake tid w/ medpass for increased nutrition if consumed.d/t suspected malnutrition Lab / Micro Data 03/26/23 03:15 03/26/23 03:15 Labs: Laboratory Results - last 24 hr 03/24/23 16:07: POC Glucose 489 H* 03/24/23 16:08: POC Glucose 452 H* 03/25/23 11:22: POC Glucose 333 H 03/25/23 13:50: APTT 84.9 H 03/25/23 16:31: POC Glucose 264 H 03/25/23 20:22: APTT 38.9 H 03/25/23 21:04: POC Glucose 329 H 03/26/23 03:15: WBC 40.6 H*, RBC 2.82 L, Hgb 9.7 L, Hct 30.4 L, MCV 107.8 H, MCH 34.4 H, MCHC 31.9 L, RDW Std Deviation 62.2 H, RDW Coeff of Merry 15.5 H, Plt Count 121 L, MPV 13.0 H, Diff Path Review October, APTT 64.8 H, Sodium 143, Potassium 3.6, Chloride 112 H, Carbon Dioxide 23.0, Anion Gap 8, BUN 68 H, Creatinine 2.98 H, Estim Creat Clear Calc 16.55, Est GFR (MDRD) Af Amer 26 L, Est GFR (MDRD) Non-Af 22 L, BUN/Creatinine Ratio 22.8 H, Glucose 336 H, Calcium 9.0, POC Glucose 312 H 03/26/23 06:32: POC Glucose 275 H Micro: Microbiology 03/22/23 22:22 Blood Culture (Wb) - Right Forearm Blood Culture - Preliminary No growth in 48 hours. 03/22/23 20:57 Blood Culture (Wb) - Anticubital Right Blood Culture - Preliminary No growth in 48 hours. 03/23/23 05:25 Sputum, Expectorated/Coughed Gram Stain - Final 03/23/23 05:25 Sputum, Expectorated/Coughed Respiratory Culture - Final Enterobacter cloacae complex 03/22/23 16:40 Urine, Clean Catch Urine Culture - Final Culture exhibits no growth. 03/22/23 16:40 Urine, Clean Catch Legionella Antigen - Final 03/22/23 16:40 Urine, Clean Catch Streptococcus pneumoniae Antigen (M - Final 03/22/23 20:50 Mucosa - Nasopharyngeal Coronavirus COVID-19 PCR - Final 03/22/23 20:50 Mucosa - Nasopharyngeal Respiratory Panel (PCR) - Final 03/22/23 16:59 Nasal Secretion SARS-CoV-2 & FLU Antigen (Rapid) - Final Physical Exam Const alert and no apparent distress Resp Resp Narrative: coarse breath sounds Cardio regular rate, regular rhythm, S1 normal heart sound and S2 normal heart sound GI normal to inspection, nondistended, normoactive bowel sounds, soft to palpation, non-tender and non-distended Assessment & Plan Assessment/Plan (1) Pleural effusion, right: PLAN: Unclear type, though favor exudative. Loculated. On broad spectrum abx with pip/tazo. Thoracentesis attempted on the , but was unable to be safely performed due to confusion. Given relatively small size would hold on repeating as high risk of complication from agitation. (2) DKA (diabetic ketoacidoses): QUALIFIERS: Diabetes mellitus complication detail: without coma Diabetes mellitus type: type 2 Qualified Code(s): E11.10 - Type 2 diabetes mellitus with ketoacidosis without coma PLAN: POA history of type 2 diabetes Presenting labs of glucose 702, bicarb 16, anion gap 16. Initiated on insulin drip on admission and admitted to the ICU. Anion gap closed by 03/23, transitioned off insulin drip and transferred out of ICU. Patient's home medication regimen unclear. Hemoglobin A1c of 12.4%. Increase to 15 BID. (3) Metabolic encephalopathy: PLAN: Acute metabolic encephalopathy, improving Suspected secondary to acute infection as above with known underlying blindness and difficulty hearing. Unclear if patient has underlying dementia as well. ? Patient has remained much more calm since afternoon of 03/23. Continue delirium precautions and conservative measures to redirect patient as needed. Treating underlying infection as above. Can consider IV antipsychotics as needed. (4) Atrial fibrillation: PLAN: New onset atrial fibrillation EKG on admission showed A-fib with PVCs, along with LAD and minimal LVH. Heart rate was 88 bpm. Started on heparin drip in the ED. Echo shows an EF of 55%. DC heparin gtt. Start apixaban 2.5 BID. Follows with cardiology outpatient, can continue outpatient follow-up for now. Suspect new onset A-fib is primarily secondary to acute infection. Monitor telemetry. 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 Creatinine now up 2.98. FENa 1.18%. Renal ultrasound negative. PVR Concern it could be worsened by abx. DC vancomycin (last received 03/24). IVF. (6) Debility: PLAN: PT/OT/case management following. Therapy unable to evaluate patient to this point due to medical instability. Per case management, patient has had [facility] care in the past but is never gone to SNF. Lives at home with his . Will await therapy evaluation prior to determining needs on discharge. PLAN: Plan Chronic conditions: * Chronic hypoxic respiratory failure on home 3 L nasal cannula? Secondary to previous COVID infection. Chest x-ray on admit showed interstitial fibrosis that was stable, as well as acute loculated effusion as noted above. Continue supplemental oxygen, wean as able. Treat pneumonia as noted above. Continue home inhalers. * Hypertension: Holding home losartan and Coreg for now, restart as able. * Hard of hearing: Ensure patient has hearing aids in as much as able. * Blindness: Per history. Complicates treatment. DVT prophylaxis: Heparin drip CODE STATUS: Full code, verified Expected disposition: Home with home health care versus SNF, TBD Charges/Coding Visit Charges Inpatient E&M: 63370 Subs Hosp L2
--- NOTE | 2023-03-26 09:20 | US_ITS ---
INDICATION: CHRIST EXAMINATION: Ultrasound US Kidney(s) complete (eg, kidneys and bladder) TECHNIQUE: Hurley scale and color doppler images were obtained of the kidneys. COMPARISON: CT dated March 22, 2023 FINDINGS: RIGHT KIDNEY: The right kidney measures 9.6 cm in length.. There is no hydronephrosis. There are 3 simple appearing right renal cyst measuring up to 6.6 x 6.0 x 5.3 cm, 3.7 x 2.9 x 2.1 cm and 2.1 x 2.5 x 2.1 cm LEFT KIDNEY: The left kidney measures 10.0 cm in length. There is no hydronephrosis. There is a 2.1 x 1.6 x 1.7 cm exophytic cyst. URINARY BLADDER: No acute abnormality. US/Kidney and Bladder IMPRESSION: No hydronephrosis. Bilateral renal cysts. Electronically Signed: Niki Rush MD at 13:26 EDT ,
[2023-03-26 09:30] LABS: Partial Thromboplast Time 98.5 Seconds (24.1-36.2)
[2023-03-26] MEDS: HEPARIN/D5w 25,000 UNITS 25,000 UNITS/250 ML IV.SOLN. 13 UNITS CONT INF ×2 (11:02→14:40)
[2023-03-26 11:13] LABS: Bedside Glucose 263 mg/dL (74-106)
[2023-03-26 14:05] LABS: Bacteria 0 SEEN /hpf (None Seen); Mucous, Urine 0 SEEN /hpf (<or=2+); Red Blood Cells-Urine 0 SEEN /hpf (0-5); Squamous Epithelial Cells - UA 0 SEEN /hpf (0-5); White Blood Cells 0 SEEN /hpf (0-5)
[2023-03-26 14:15] LABS: Color, Urine Yellow (Yellow); Glucose, Dipstick Normal (Normal); Ketone-Dipstick Negative (Negative); Leukocyte Esterase-Dipstick Negative /ul (Negative); Nitrite-Dipstick Negative (Negative); Occult Blood-Urine 10 /ul (Negative); Protein-Dipstick 30 mg/dl (Negative); Urine Bilirubin Dipstick Negative (Negative); Urine Clarity Sl. Cloudy (Clear); Urine Urobilinogen 1 mg/dl (Normal)
[2023-03-26 14:19] LABS: Urine Sodium 25 mmol/L (Not Establ.)
[2023-03-26 14:20] LABS: Amorphous Sediment 1+
[2023-03-26] MEDS: 0.9% Normal Saline (1000mL) 1,000 ML 125 ML IV (16:17)
[2023-03-26 16:38] LABS: Bedside Glucose 392 mg/dL (74-106)
[2023-03-26] MEDS: APIXABAN 2.5 MG TABLET (WCH) PO (21:08)
[2023-03-26] MEDS: 0.9% Saline Lock 10 ML Syringe IV (21:08)
[2023-03-26 22:41] LABS: Bedside Glucose 451 mg/dL (74-106)
[2023-03-26 23:22] LABS: Bedside Glucose 459 mg/dL (74-106)
[2023-03-27] VITALS (9 sets, daily range): BP systolic 105–130; BP diastolic 67–95; PULSE 76–110; RESP 14–32; TEMP 36.4–36.9; O2SAT 16–98; BMI 27.7
[2023-03-27] MEDS: Insulin Lispro 100 UNIT/ML INSULN.PEN SC ×4 (01:03→22:43)
[2023-03-27 04:37] LABS: Bedside Glucose 213 mg/dL (74-106)
[2023-03-27] MEDS: Menthol/Lanolin/Calamine/Znox 113 GM Tube 1 APPLIC TOPICAL ×3 (05:29→22:35)
[2023-03-27] MEDS: Piperacil/Tazobactam 3.375 GM in 0.9% Normal Saline (50mL MB+) 50 ML IV ×2 (05:32→22:37)
[2023-03-27 05:56] LABS: Hematocrit 29.6 % (40-54); Hemoglobin 9.4 g/dL (13.0-16.5); Mean Corp Hgb Conc 31.8 g/dL (32-36); Mean Corpuscular Hgb 34.4 pg (27.0-32.0); Mean Corpuscular Volume 108.4 fL (80-94); POSITIVE COUNT YES; POSITIVE DIFFERENTIAL YES; POSITIVE MORPHOLOGY YES; Platelet Count 111 K/mm3 (150-450); RBC Distribution Width CV 15.8 % (11.6-14.6); RBC Distribution Width SD 62.1 fl (35.1-43.9); Red Blood Count 2.73 M/mm3 (4.6-6.2)
[2023-03-27 06:01] LABS: Differential Indicated MANUAL DIFF
[2023-03-27 06:02] LABS: White Blood Count 34.8 K/mm3 (4.4-11.0)
[2023-03-27 06:28] LABS: Anion Gap 6 (5-15); BUN 71 mg/dL (7-18); BUN/Creat Ratio 21.4 RATIO (10-20); Calcium,Total 8.6 mg/dL (8.5-10.1); Chloride 118 mmol/L (98-107); Creatinine, Serum 3.32 mg/dL (0.70-1.30); EST Glomerular Filtration Rate 19 mL/min (>60); Est Glom Filt Rate - Afr Amer 23 mL/min (>60); Estimated Creatinine Clearance 14.86 ml/min; Glucose 150 mg/dL (74-106); Sodium Level 146 mmol/L (136-145)
[2023-03-27 07:02] LABS: Anisocytosis 2+; Hypochromasia RARE; Lymphocyte 8 % (19-41); Macrocytosis 2+; Metamyelocyte 1 % (0-1); Monocyte 20 % (0-10); Neutrophil-Band 20 % (0-5); Neutrophil-Segmented 51 % (47-70); Platelet Estimate ADEQUATE (ADEQ); Total Cells Counted 100 (MANUAL DIFF)
[2023-03-27 07:03] LABS: Absolute Lymphocyte Count 2.79 X10^3/uL (0.83-4.51); Absolute Neutrophil Count 24.7 X10^3/uL (2.0-7.7); Lymphocyte # 2.79 X10^3/ul (0.83-4.51); Neutrophil # 24.74 X10^3/uL (2.7-7.7)
[2023-03-27 07:24] LABS: Bedside Glucose 95 mg/dL (74-106)
[2023-03-27] MEDS: Budesonide Respules 0.5 MG/2 ML AMPUL.NEB. INHALATION ×2 (07:39→19:16)
--- NOTE | 2023-03-27 07:40 | PCM.PN.INT ---
Assessment & Plan Assessment/Plan (1) DKA (diabetic ketoacidoses): QUALIFIERS: Diabetes mellitus type: type 2 Diabetes mellitus complication detail: without coma Qualified Code(s): E11.10 - Type 2 diabetes mellitus with ketoacidosis without coma (2) Pleural effusion, right: PLAN: Plan RECOMMENDATIONS: 1. Continue basal and sliding scale insulin coverage. Continue Accu-Cheks as ordered. Will increase basal slightly 2. Consider transition to high-dose Levaquin versus ID consult 3. Wean supplemental oxygen to maintain saturations at or above 90%. 4. Encourage incentive spirometer use and mobilize patient as tolerated. 5. Continue scheduled budesonide aerosols and as needed albuterol. 6. Consider renal consult IMPRESSIONS: 1. Diabetic ketoacidosis Resolved at this time. Anion gap has been closed. The patient has been initiated on basal and sliding scale insulin coverage, which will be continued. The patient will require diabetic education, given that he has a hemoglobin A1c of greater than 12. Blood sugars are marginally controlled, but there is no signs of DKA. Blood sugars will be difficult to control given problem #3. 2. Acute on chronic kidney disease Most likely prerenal in etiology in the setting of #1. Continue to monitor urine output. Patient is slowly increasing in creatinine and BUN. Patient may have an element of osmotic diuresis secondary to elevated blood sugars. No current indication for renal replacement therapy. Consider nephrology consultation 3. Loculated right-sided pleural effusion/history of asthma/chronic hypoxemic respiratory failure The patient has a loculated right-sided pleural effusion on CT imaging of the chest, which could be related to underlying cardiac etiologies and/or a parapneumonic effusion. The patient has already been initiated on broad-spectrum antimicrobials. Unfortunately, the patient was unable to tolerate an attempted an ultrasound-guided thoracentesis on March 23. Echocardiogram revealed normal ejection fraction. Plan to continue current supportive measures and aerosol treatments as ordered. Patient has had some improvement in leukocytosis. Could consider transition to Levaquin 750 mg p.o. daily versus an ID consult as patient may require protracted antibiotics. Previous PFT in 2018 did not show any obstructive lung disease. 4. Troponin elevation Most likely secondary to demand ischemia. Echocardiogram was unrevealing. Patient could have an outpatient work-up, but likely not necessary to have an inpatient work-up. This note was generated with [employer] software. It may contain incorrect words, spelling, and punctuation that were not noted in checking the note before signing. Subjective Subjective Patient did okay overnight. No acute issues were reported. Patient did state that he felt a little bit more short of breath this morning, but supplemental oxygen was not in place. Patient is not reporting any chest pain at this time. Objective Data Objective Data Vital Signs: Vital Signs Temp Pulse Resp BP Pulse Ox O2 Del Method O2 Flow Rate 36.8 C 83 20 H 130/84 H 97 Nasal Cannula 2 03/27/23 02:59 03/27/23 02:59 03/27/23 02:59 03/27/23 02:59 03/27/23 02:59 03/27/23 03:01 03/27/23 03:01 Oxygen Flow Rate (L/min) 2 Oxygen Delivery Method Nasal Cannula Weight: 73.3 kg Body Mass Index (BMI) 27.7 Intake & Output: Intake and Output for Last 24 Hours 03/25/23 03/26/23 03/27/23 23:59 23:59 23:59 Intake Total 1303.57 / 1303.57 995.74 / 995.74 1047.92 / 1047.92 Output Total 750 / 750 970 / 970 400 / 400 Balance 553.57 / 553.57 25.74 / 25.74 647.92 / 647.92 Medical Nutrition Assessment Dietitian: Malnutrition Criteria Met Start: 03/23/23 10:09 Freq: Status: Active Protocol: Document 03/23/23 10:09 JOHANA (Rec: 03/23/23 10:09 JOHANA [id number]) Nutrition Malnutrition Evidence of Malnutrition Exists Yes Malnutrition (severe): Acute Illness/Injury Evidenced By Suboptimal Energy Intake ( Severe),Weight Loss (Severe), Physical Changes (Mild) Clinical Problem Acute Disease or Injury Related Malnutrition Etiology SUSPECTED r/t pt being sick and likely not consuming adequate energy and 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 Signs/Symptoms as evidenced by predicted po intake <50% of est nutritional needs x > 2 wk and Status Active Problem Altered Nutrient-Related Laboratory Values Etiology related to uncontrolled diabetes Signs/Symptoms as evidenced by A1c = 12.4 and gluc 408 today Status Active Problem Recommendation Dietitian Recommendations/Changes Rec Cardiac 1800 aaron CHO Control diet when able to resume po diet Will order 4 oz glucerna shake tid w/ medpass for increased nutrition if consumed.d/t suspected malnutrition Lab / Micro Data Attestation: I reviewed the patient's lab results. 03/27/23 05:25 03/27/23 05:25 Labs: Laboratory Results - last 24 hr 03/24/23 16:07: POC Glucose 489 H* 03/24/23 16:08: POC Glucose 452 H* 03/26/23 09:05: APTT 98.5 H* 03/26/23 10:38: POC Glucose 263 H 03/26/23 13:48: Urine Color Yellow, Urine Clarity Sl. Cloudy, Urine pH 5.0, Ur Specific [place] 1.010, Urine Protein 30 H, Urine Glucose (UA) Normal, Urine Ketones Negative, Urine Occult Blood 10 H, Urine Nitrite Negative, Urine Bilirubin Negative, Urine Urobilinogen 1 H, Ur Leukocyte Esterase Negative, Urine RBC 0 SEEN, Urine WBC 0 SEEN, Ur Squamous Epith Cells 0 SEEN, Amorphous Sediment 1+, Urine Bacteria 0 SEEN, Urine Mucus 0 SEEN, Ur Random Sodium 25, Urine Creatinine 43.90 03/26/23 16:13: POC Glucose 392 H 03/26/23 21:06: POC Glucose 451 H* 03/26/23 22:49: POC Glucose 459 H* 03/27/23 03:38: POC Glucose 213 H 03/27/23 05:25: WBC 34.8 H*, RBC 2.73 L, Hgb 9.4 L, Hct 29.6 L, MCV 108.4 H, MCH 34.4 H, MCHC 31.8 L, RDW Std Deviation 62.1 H, RDW Coeff of Merry 15.8 H, Plt Count 111 L, MPV 13.0 H, Neut % (Auto) Not Reportable, Absolute Neuts (auto) 24.7 H, Absolute Lymphs (auto) 2.79, Total Counted 100, Neutrophils % (Manual) 51, Band Neutrophils % 20 H, Lymphocytes % (Manual) 8 L, Monocytes % (Manual) 20 H, Metamyelocytes % 1, Diff Path Review May foll, Platelet Estimate ADEQUATE, Hypochromasia RARE, Anisocytosis 2+, Macrocytosis 2+, Sodium 146 H, Potassium 3.0 L, Chloride 118 H, Carbon Dioxide 22.0, Anion Gap 6, BUN 71 H, Creatinine 3.32 H, Estim Creat Clear Calc 14.86, Est GFR (MDRD) Af Amer 23 L, Est GFR (MDRD) Non-Af 19 L, BUN/Creatinine Ratio 21.4 H, Glucose 150 H, Calcium 8.6 03/27/23 06:26: POC Glucose 95 Micro: Microbiology 03/22/23 22:22 Blood Culture (Wb) - Right Forearm Blood Culture - Preliminary No growth in 48 hours. 03/22/23 20:57 Blood Culture (Wb) - Anticubital Right Blood Culture - Preliminary No growth in 48 hours. 03/23/23 05:25 Sputum, Expectorated/Coughed Gram Stain - Final 03/23/23 05:25 Sputum, Expectorated/Coughed Respiratory Culture - Final Enterobacter cloacae complex 03/22/23 16:40 Urine, Clean Catch Urine Culture - Final Culture exhibits no growth. 03/22/23 16:40 Urine, Clean Catch Legionella Antigen - Final 03/22/23 16:40 Urine, Clean Catch Streptococcus pneumoniae Antigen (M - Final 03/22/23 20:50 Mucosa - Nasopharyngeal Coronavirus COVID-19 PCR - Final 03/22/23 20:50 Mucosa - Nasopharyngeal Respiratory Panel (PCR) - Final 03/22/23 16:59 Nasal Secretion SARS-CoV-2 & FLU Antigen (Rapid) - Final Radiography Diagnostic Testing: Radiology Impression Chest Ultrasound 03/23/23 06:35 IMPRESSION: Not enough fluid for safe thoracentesis of the right pleural space. Electronically Signed: Davie Scott MD at 14:55 EDT , Renal Ultrasound 03/26/23 09:20 IMPRESSION: No hydronephrosis. Bilateral renal cysts. Electronically Signed: Niki Rush MD at 13:26 EDT , Physical Exam Const alert and no apparent distress Constitutional Narrative: Following commands appropriately General Appearance: cooperative HEENT normocephalic and head/scalp atraumatic Eyes PERRL, EOMs intact bilaterally and conjunctivae normal Neck supple General: trachea midline Chest inspection of chest normal Resp normal respiratory effort Effort and Inspection: tachypneic and actively coughing Auscultation: diminished lung sounds Cardio regular rate and regular rhythm GI normal to inspection, nondistended, normoactive bowel sounds Extremity no clubbing, cyanosis or edema Skin no rashes or lesions noted Neuro CN's II-XII intact bilaterally, moves all extremities and no focal motor deficits Psych cooperative and affect normal Mood & Affect: flat affect Charges/Coding Visit Charges Inpatient E&M: 68055 Subs Hosp L2
--- NOTE | 2023-03-27 08:21 | PN.HOSP_ITS ---
Reason for Visit Reason for Visit: Diagnoses Type 2 diabetes mellitus with ketoacidosis without coma (03/22/23) Metabolic encephalopathy (03/22/23) Unspecified atrial fibrillation (03/22/23) Pleural effusion, not elsewhere classified (03/22/23) Acute kidney failure, unspecified (03/22/23) Other malaise (03/22/23) Subjective Subjective confused. denies complaints. Objective Data Objective Data Vital Signs: Vital Signs Temp Pulse Resp BP Pulse Ox O2 Del Method O2 Flow Rate 36.8 C 83 20 H 130/84 H 96 Nasal Cannula 2 03/27/23 02:59 03/27/23 07:39 03/27/23 07:39 03/27/23 02:59 03/27/23 07:39 03/27/23 07:39 03/27/23 07:39 Oxygen Flow Rate (L/min) 2 Oxygen Delivery Method Nasal Cannula Weight: 73.3 kg Body Mass Index (BMI) 27.7 Intake & Output: Intake and Output for Last 24 Hours 03/25/23 03/26/23 03/27/23 23:59 23:59 23:59 Intake Total 1303.57 / 1303.57 995.74 / 995.74 1047.92 / 1047.92 Output Total 750 / 750 970 / 970 400 / 400 Balance 553.57 / 553.57 25.74 / 25.74 647.92 / 647.92 Medical Nutrition Assessment Dietitian: Malnutrition Criteria Met Start: 03/23/23 10:09 Freq: Status: Active Protocol: Document 03/23/23 10:09 JOHANA (Rec: 03/23/23 10:09 JOHANA [id number]) Nutrition Malnutrition Evidence of Malnutrition Exists Yes Malnutrition (severe): Acute Illness/Injury Evidenced By Suboptimal Energy Intake ( Severe),Weight Loss (Severe), Physical Changes (Mild) Clinical Problem Acute Disease or Injury Related Malnutrition Etiology SUSPECTED r/t pt being sick and likely not consuming adequate energy and 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 Signs/Symptoms as evidenced by predicted po intake <50% of est nutritional needs x > 2 wk and Status Active Problem Altered Nutrient-Related Laboratory Values Etiology related to uncontrolled diabetes Signs/Symptoms as evidenced by A1c = 12.4 and gluc 408 today Status Active Problem Recommendation Dietitian Recommendations/Changes Rec Cardiac 1800 aaron CHO Control diet when able to resume po diet Will order 4 oz glucerna shake tid w/ medpass for increased nutrition if consumed.d/t suspected malnutrition Lab / Micro Data 03/27/23 05:25 03/27/23 05:25 Labs: Laboratory Results - last 24 hr 03/26/23 09:05: APTT 98.5 H* 03/26/23 10:38: POC Glucose 263 H 03/26/23 13:48: Urine Color Yellow, Urine Clarity Sl. Cloudy, Urine pH 5.0, Ur Specific [place] 1.010, Urine Protein 30 H, Urine Glucose (UA) Normal, Urine Ketones Negative, Urine Occult Blood 10 H, Urine Nitrite Negative, Urine Bilirubin Negative, Urine Urobilinogen 1 H, Ur Leukocyte Esterase Negative, Urine RBC 0 SEEN, Urine WBC 0 SEEN, Ur Squamous Epith Cells 0 SEEN, Amorphous Sediment 1+, Urine Bacteria 0 SEEN, Urine Mucus 0 SEEN, Ur Random Sodium 25, Urine Creatinine 43.90 03/26/23 16:13: POC Glucose 392 H 03/26/23 21:06: POC Glucose 451 H* 03/26/23 22:49: POC Glucose 459 H* 03/27/23 03:38: POC Glucose 213 H 03/27/23 05:25: WBC 34.8 H*, RBC 2.73 L, Hgb 9.4 L, Hct 29.6 L, MCV 108.4 H, MCH 34.4 H, MCHC 31.8 L, RDW Std Deviation 62.1 H, RDW Coeff of Merry 15.8 H, Plt Count 111 L, MPV 13.0 H, Neut % (Auto) Not Reportable, Absolute Neuts (auto) 24.7 H, Absolute Lymphs (auto) 2.79, Total Counted 100, Neutrophils % (Manual) 51, Band Neutrophils % 20 H, Lymphocytes % (Manual) 8 L, Monocytes % (Manual) 20 H, Metamyelocytes % 1, Diff Path Review May foll, Platelet Estimate ADEQUATE, Hypochromasia RARE, Anisocytosis 2+, Macrocytosis 2+, Sodium 146 H, Potassium 3.0 L, Chloride 118 H, Carbon Dioxide 22.0, Anion Gap 6, BUN 71 H, Creatinine 3.32 H, Estim Creat Clear Calc 14.86, Est GFR (MDRD) Af Amer 23 L, Est GFR (MDRD) Non-Af 19 L, BUN/Creatinine Ratio 21.4 H, Glucose 150 H, Calcium 8.6 03/27/23 06:26: POC Glucose 95 Micro: Microbiology 03/22/23 22:22 Blood Culture (Wb) - Right Forearm Blood Culture - Preliminary No growth in 48 hours. 03/22/23 20:57 Blood Culture (Wb) - Anticubital Right Blood Culture - Preliminary No growth in 48 hours. 03/23/23 05:25 Sputum, Expectorated/Coughed Gram Stain - Final 03/23/23 05:25 Sputum, Expectorated/Coughed Respiratory Culture - Final Enterobacter cloacae complex 03/22/23 16:40 Urine, Clean Catch Urine Culture - Final Culture exhibits no growth. 03/22/23 16:40 Urine, Clean Catch Legionella Antigen - Final 03/22/23 16:40 Urine, Clean Catch Streptococcus pneumoniae Antigen (M - Final 03/22/23 20:50 Mucosa - Nasopharyngeal Coronavirus COVID-19 PCR - Final 03/22/23 20:50 Mucosa - Nasopharyngeal Respiratory Panel (PCR) - Final 03/22/23 16:59 Nasal Secretion SARS-CoV-2 & FLU Antigen (Rapid) - Final Radiography Diagnostic Testing: Radiology Impression Chest Ultrasound 03/23/23 06:35 IMPRESSION: Not enough fluid for safe thoracentesis of the right pleural space. Electronically Signed: Davie Scott MD at 14:55 EDT , Renal Ultrasound 03/26/23 09:20 IMPRESSION: No hydronephrosis. Bilateral renal cysts. Electronically Signed: Niki Rush MD at 13:26 EDT , Physical Exam Const alert and no apparent distress HEENT head/scalp atraumatic Resp normal respiratory effort, no retractions, no use of accessory muscles and clear to auscultation bilaterally Cardio regular rate, regular rhythm, S1 normal heart sound and S2 normal heart sound GI normal to inspection, nondistended, normoactive bowel sounds, soft to palpation, non-tender and non-distended Assessment & Plan Assessment/Plan (1) Pleural effusion, right: PLAN: Unclear type, though favor exudative. Loculated. On broad spectrum abx with pip/tazo. Thoracentesis attempted on the , but was unable to be safely performed due to confusion. Given relatively small size would hold on repeating as high risk of complication from agitation. (2) DKA (diabetic ketoacidoses): QUALIFIERS: Diabetes mellitus complication detail: without coma Diabetes mellitus type: type 2 Qualified Code(s): E11.10 - Type 2 diabetes mellitus with ketoacidosis without coma PLAN: POA history of type 2 diabetes Presenting labs of glucose 702, bicarb 16, anion gap 16. Initiated on insulin drip on admission and admitted to the ICU. Anion gap closed by 03/23, transitioned off insulin drip and transferred out of ICU. Patient's home medication regimen unclear. Hemoglobin A1c of 12.4%. Increase to 15 BID. (3) Metabolic encephalopathy: PLAN: Acute metabolic encephalopathy, improving Suspected secondary to acute infection as above with known underlying blindness and difficulty hearing. Unclear if patient has underlying dementia as well. ? Patient has remained much more calm since afternoon of 03/23. Continue delirium precautions and conservative measures to redirect patient as needed. Treating underlying infection as above. Can consider IV antipsychotics as needed. (4) Atrial fibrillation: PLAN: New onset atrial fibrillation Echo shows an EF of 55%. DC heparin gtt. Start apixaban 2.5 BID. Follows with cardiology outpatient, can continue outpatient follow-up for now. Suspect new onset A-fib is primarily secondary to acute infection. Monitor telemetry. 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 Creatinine now up 3.32 FENa 1.18%. Renal ultrasound negative. PVR Concern it could be worsened by abx. DC vancomycin (last received 03/24). IVF. Ongoing. Consult nephrology. (6) Debility: PLAN: PT/OT/case management following. Lives at home with his . Will await therapy evaluation prior to determining needs on discharge. PLAN: Plan Chronic conditions: * Chronic hypoxic respiratory failure on home 3 L nasal cannula? Secondary to previous COVID infection. Chest x-ray on admit showed interstitial fibrosis that was stable, as well as acute loculated effusion as noted above. Continue supplemental oxygen, wean as able. Treat pneumonia as noted above. Continue home inhalers. * Hypertension: Holding home losartan and Coreg for now, restart as able. * Hard of hearing: Ensure patient has hearing aids in as much as able. * Blindness: Per history. Complicates treatment. DVT prophylaxis: not indicated as on apixaban. CODE STATUS: Full code, verified Expected disposition: Home with home health care versus SNF, TBD Charges/Coding Visit Charges Inpatient E&M: 86173 Subs Hosp L2
[2023-03-27] MEDS: APIXABAN 2.5 MG TABLET (WCH) PO ×2 (09:04→22:35)
[2023-03-27] MEDS: Pantoprazole Sodium 40 MG Tablet PO (09:04)
[2023-03-27] MEDS: Insulin Glargine-YFGN 100 UNIT/ML Pen 20 UNIT SC ×2 (09:27→22:45)
[2023-03-27 10:11] LABS: Pathologist Review Reviewed
[2023-03-27 10:12] LABS: Pathologist Review Reviewed
[2023-03-27 10:12] LABS: Pathologist Review Reviewed
--- NOTE | 2023-03-27 10:21 | PCM.CONS.R ---
Assessment & Plan Assessment/Plan (1) CHRIST (acute kidney injury): (2) Chronic kidney disease: QUALIFIERS: Chronic kidney disease stage: stage 2 (mild) Qualified Code(s): N18.2 - Chronic kidney disease, stage 2 (mild) (3) DKA (diabetic ketoacidoses): QUALIFIERS: Diabetes mellitus complication detail: without coma Diabetes mellitus type: type 2 Qualified Code(s): E11.10 - Type 2 diabetes mellitus with ketoacidosis without coma (4) Atrial fibrillation: PLAN: Plan Nonoliguric CHRIST superimposed on CKD stage III. Serum creatinine was 2.67 on admission, improved to 1.9 on 03/23, was on IVF and treating DKA. Serum creatinine was 2.0 on 03/24 and has been slowly rising over the past few days. Today serum creatinine up to 3.32 mg/dL. Likely CHRIST multifactorial from infection, low blood pressures, A-fib with poor renal perfusion. Hopefully serum creatinine will begin to peak/level off and then improve. At this time there is no acute indication for CAPACITOR INSPECTOR as volume status acceptable, patient is nonoliguric and no hyperkalemia or acidosis. Potassium is actually low today, replacement ordered. On admission patient was started on vancomycin and Zosyn, vancomycin was stopped. Vanco trough level 9.4 on 03/24, no further levels to review. Renal US no hydro. UA no bacteria or blood, 30 protein. Will check UPCR. Patient received 1L IVF yesterday. BPs remain on low side. It seems patient has poor oral intake. Encourage increase solute and fluid intake. CKD likely secondary to diabetic kidney disease; baseline serum Cr ~1.7-low 2 range. Urine microalbumin/creatinine ratio 522mg/g 2018. Blood pressures were low on admission and have been low normal during hospitalization. Patient is not on any antihypertensives at this time. Per patient's home medication list he is on losartan daily, recommend holding this for now and likely even at discharge. Further orders forthcoming as hospitalization evolves, thank you for allowing us to participate in the care of Mr. 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 Admitted for pneumonia, acute right loculated pleural effusion along with DKA, acute metabolic encephalopathy and new onset A-fib. Glucose 702 on admission. Patient was initially initiated on insulin drip and admitted to ICU. Nephrology consulted for rising serum creatinine. Patient is hard of hearing. He is alert but very hard of hearing. Patient reports appetite has been poor, feels thirsty. Most of information gathered from the chart. [facility] Medical History (Updated 03/27/23 @ 10:27 by JAMILA Llanos) Accelerated junctional rhythm Acute on chronic combined systolic (congestive) and diastolic (congestive) heart failure Acute respiratory failure with hypercapnia CHRIST (acute kidney injury) Cardiomyopathy in disease classified elsewhere Chronic kidney disease CKD stage 3 due to type 2 diabetes mellitus Critical aortic valve stenosis Diabetes mellitus Hypertension detention current use of anticoagulant Metabolic encephalopathy Mitral valve insufficiency Nonrheumatic aortic valve stenosis Nonrheumatic aortic valve stenosis with insufficiency Type 2 diabetes mellitus with hyperglycemia Home Medications polysaccharide iron complex 150 mg iron capsule (Ferrex) 150 mg PO DAILY 06/02/19 [History Last Taken 03/05/22] fluticasone propionate 50 mcg/actuation nasal spray,suspension (Allergy Relief (fluticasone)) 2 spray intranasal DAILY allergies 04/06/21 [History Last Taken 03/06/22] ascorbic acid (vitamin C) 500 mg tablet (Vitamin C) 500 mg PO DAILY supplement 03/06/22 [History Last Taken 03/05/22] multivit,Ca,min-iron fum-folic acid-bacill 14 mg-200 mcg-90 mg tablet 1 tab PO DAILY health maintenance 03/06/22 [History Last Taken 03/05/22] albuterol sulfate 90 mcg/actuation aerosol inhaler 2 puff inhalation Q6H PRN shortness of breath or wheezing #6.7 grams 03/09/22 [Rx Last Taken Unknown] handicap placcard #1 ea 04/11/22 [Rx Last Taken Unknown] losartan 25 mg tablet 25 mg PO DAILY #30 tabs 04/11/22 [Rx Last Taken Unknown] carvedilol 3.125 mg tablet 3.125 mg PO BID 30 days #60 tabs 06/14/22 [Rx Last Taken Unknown] albuterol sulfate 2.5 mg/3 mL (0.083 %) solution for nebulization 2.5 mg (3 mL) inhalation Q4H PRN Sob &/Or Wheezing #180 mL 09/25/22 [Rx Last Taken Unknown] budesonide 1 mg/2 mL suspension for nebulization 1 mg (2 mL) inhalation BID #60 mL 09/25/22 [Rx Last Taken Unknown] azithromycin 250 mg tablet See Rx Instructions PO .COMPLEX #6 tabs 02/28/23 [Rx Last Taken Unknown] loratadine 10 mg tablet (Allergy Relief (loratadine)) 10 mg PO DAILY #90 tabs 02/28/23 [Rx Last Taken Unknown] Allergy/AdvReac Type Severity Reaction Status Date / Time No Known Allergies Allergy Verified 03/22/23 16:19 Family History Mother Hypertension Father Hypertension Surgical History History of adenoidectomy History of aortic valve replacement with bioprosthetic valve (~07/04/17) History of left heart catheterization (~04/2017) History of tonsillectomy Hx of cholecystectomy S/P mitral valve repair (07/04/17) Social History Smoking Status: Never smoker alcohol intake: never substance use type: does not use caffeine: Yes Type: coffee Number of servings: 2 what type of physical activity do you participate in: other details: PT frequency: daily duration: 15-30 minutes/day seatbelt use: always do you feel safe at home: Yes ROS ROS Narrative Limited, see HPI past medical history Physical Exam Narrative Alert to name, hard of hearing, no apparent distress S1, S2, rhythm irregular rate controlled Lung sounds clear anteriorly diminished breath sounds abdomen soft, nontender No pitting edema Medical Records Data Medical Nutrition Assessment Dietitian: Malnutrition Criteria Met Start: 03/23/23 10:09 Freq: Status: Active Protocol: Document 03/23/23 10:09 JOHANA (Rec: 03/23/23 10:09 JOHANA [id number]) Nutrition Malnutrition Evidence of Malnutrition Exists Yes Malnutrition (severe): Acute Illness/Injury Evidenced By Suboptimal Energy Intake ( Severe),Weight Loss (Severe), Physical Changes (Mild) Clinical Problem Acute Disease or Injury Related Malnutrition Etiology SUSPECTED r/t pt being sick and likely not consuming adequate energy and 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 Signs/Symptoms as evidenced by predicted po intake <50% of est nutritional needs x > 2 wk and Status Active Problem Altered Nutrient-Related Laboratory Values Etiology related to uncontrolled diabetes Signs/Symptoms as evidenced by A1c = 12.4 and gluc 408 today Status Active Problem Recommendation Dietitian Recommendations/Changes Rec Cardiac 1800 aaron CHO Control diet when able to resume po diet Will order 4 oz glucerna shake tid w/ medpass for increased nutrition if consumed.d/t suspected malnutrition Lab / Micro Data 03/27/23 05:25 03/27/23 05:25 Labs: Laboratory Results - last 24 hr 03/24/23 06:00: Diff Path Review Reviewed 03/25/23 06:20: Diff Path Review Reviewed 03/26/23 03:15: Diff Path Review Reviewed 03/26/23 10:38: POC Glucose 263 H 03/26/23 13:48: Urine Color Yellow, Urine Clarity Sl. Cloudy, Urine pH 5.0, Ur Specific [place] 1.010, Urine Protein 30 H, Urine Glucose (UA) Normal, Urine Ketones Negative, Urine Occult Blood 10 H, Urine Nitrite Negative, Urine Bilirubin Negative, Urine Urobilinogen 1 H, Ur Leukocyte Esterase Negative, Urine RBC 0 SEEN, Urine WBC 0 SEEN, Ur Squamous Epith Cells 0 SEEN, Amorphous Sediment 1+, Urine Bacteria 0 SEEN, Urine Mucus 0 SEEN, Ur Random Sodium 25, Urine Creatinine 43.90 03/26/23 16:13: POC Glucose 392 H 03/26/23 21:06: POC Glucose 451 H* 03/26/23 22:49: POC Glucose 459 H* 03/27/23 03:38: POC Glucose 213 H 03/27/23 05:25: WBC 34.8 H*, RBC 2.73 L, Hgb 9.4 L, Hct 29.6 L, MCV 108.4 H, MCH 34.4 H, MCHC 31.8 L, RDW Std Deviation 62.1 H, RDW Coeff of Merry 15.8 H, Plt Count 111 L, MPV 13.0 H, Neut % (Auto) Not Reportable, Absolute Neuts (auto) 24.7 H, Absolute Lymphs (auto) 2.79, Total Counted 100, Neutrophils % (Manual) 51, Band Neutrophils % 20 H, Lymphocytes % (Manual) 8 L, Monocytes % (Manual) 20 H, Metamyelocytes % 1, Diff Path Review May foll, Platelet Estimate ADEQUATE, Hypochromasia RARE, Anisocytosis 2+, Macrocytosis 2+, Sodium 146 H, Potassium 3.0 L, Chloride 118 H, Carbon Dioxide 22.0, Anion Gap 6, BUN 71 H, Creatinine 3.32 H, Estim Creat Clear Calc 14.86, Est GFR (MDRD) Af Amer 23 L, Est GFR (MDRD) Non-Af 19 L, BUN/Creatinine Ratio 21.4 H, Glucose 150 H, Calcium 8.6 03/27/23 06:26: POC Glucose 95 Radiology Impression Chest Ultrasound 03/23/23 06:35 IMPRESSION: Not enough fluid for safe thoracentesis of the right pleural space. Electronically Signed: Davie Scott MD at 14:55 EDT , Renal Ultrasound 03/26/23 09:20 IMPRESSION: No hydronephrosis. Bilateral renal cysts. Electronically Signed: Niki Rush MD at 13:26 EDT ,
[2023-03-27 11:34] LABS: Bedside Glucose 106 mg/dL (74-106)
[2023-03-27 12:08] LABS: Vancomycin, Random Level 17.7 ug/mL (0.0-15.0)
[2023-03-27 13:13] LABS: Pathologist Review Reviewed
[2023-03-27 19:22] LABS: Protein, Urine (Random) 58.7 mg/dL (<11.9); Protein:Creat Ratio 1900 mg/g CRE (0-200)
[2023-03-27 19:29] LABS: Bedside Glucose 187 mg/dL (74-106)
[2023-03-27 23:09] LABS: Bedside Glucose 222 mg/dL (74-106)
[2023-03-28] VITALS (9 sets, daily range): BP systolic 98–117; BP diastolic 63–81; PULSE 85–107; RESP 18–24; TEMP 36.3–36.8; O2SAT 83–99; BMI 27.1
[2023-03-28] MEDS: Insulin Lispro 100 UNIT/ML INSULN.PEN SC ×4 (03:06→21:36)
[2023-03-28 03:35] LABS: Bedside Glucose 209 mg/dL (74-106)
[2023-03-28 06:20] LABS: Hematocrit 28.9 % (40-54); Hemoglobin 9.2 g/dL (13.0-16.5); Mean Corp Hgb Conc 31.8 g/dL (32-36); Mean Corpuscular Hgb 34.3 pg (27.0-32.0); Mean Corpuscular Volume 107.8 fL (80-94); Mean Platelet Vol. 13.8 fl (6.2-12.0); POSITIVE COUNT YES; Platelet Count 103 K/mm3 (150-450); RBC Distribution Width CV 15.8 % (11.6-14.6); RBC Distribution Width SD 62.9 fl (35.1-43.9); Red Blood Count 2.68 M/mm3 (4.6-6.2)
[2023-03-28] MEDS: Menthol/Lanolin/Calamine/Znox 113 GM Tube 1 APPLIC TOPICAL ×3 (06:29→21:35)
[2023-03-28 06:44] LABS: Scan Indicated on CBC? Y/N YES- FLAGS NOTED; White Blood Count 33.5 K/mm3 (4.4-11.0)
[2023-03-28 06:49] LABS: Anion Gap 9 (5-15); BUN 69 mg/dL (7-18); BUN/Creat Ratio 19.9 RATIO (10-20); Calcium,Total 9.1 mg/dL (8.5-10.1); Chloride 119 mmol/L (98-107); Creatinine, Serum 3.47 mg/dL (0.70-1.30); EST Glomerular Filtration Rate 18 mL/min (>60); Est Glom Filt Rate - Afr Amer 22 mL/min (>60); Estimated Creatinine Clearance 14.22 ml/min; Glucose 205 mg/dL (74-106); Sodium Level 149 mmol/L (136-145)
[2023-03-28 06:58] LABS: Bedside Glucose 152 mg/dL (74-106)
[2023-03-28] MEDS: Budesonide Respules 0.5 MG/2 ML AMPUL.NEB. INHALATION (07:11)
--- NOTE | 2023-03-28 08:04 | PN.CC_ITS ---
Assessment & Plan Assessment/Plan (1) DKA (diabetic ketoacidoses): QUALIFIERS: Diabetes mellitus type: type 2 Diabetes mellitus complication detail: without coma Qualified Code(s): E11.10 - Type 2 diabetes mellitus with ketoacidosis without coma (2) Pleural effusion, right: PLAN: Plan RECOMMENDATIONS: 1. Continue basal and sliding scale insulin coverage. Continue Accu-Cheks as ordered. 2. Consider transition to high-dose Levaquin versus ID consult 3. Wean supplemental oxygen to maintain saturations at or above 90%. 4. Encourage incentive spirometer use and mobilize patient as tolerated. 5. Continue scheduled budesonide aerosols and as needed albuterol. 6. Appreciate renal consult IMPRESSIONS: 1. Diabetic ketoacidosis Resolved at this time. Anion gap has been closed. The patient has been initiated on basal and sliding scale insulin coverage, which will be continued. The patient will require diabetic education, given that he has a hemoglobin A1c of greater than 12. Blood sugars are marginally controlled, but there is no signs of DKA. Blood sugars are somewhat better after increase in basal insulin. Blood sugars will be difficult to control given problem #3. 2. Acute on chronic kidney disease Most likely prerenal in etiology in the setting of #1. Continue to monitor urine output. Patient is slowly increasing in creatinine and BUN. Patient may have an element of osmotic diuresis secondary to elevated blood sugars. No current indication for renal replacement therapy. Appreciate renal recommendations 3. Loculated right-sided pleural effusion/history of asthma/chronic hypoxemic respiratory failure The patient has a loculated right-sided pleural effusion on CT imaging of the chest, which could be related to underlying cardiac etiologies and/or a parapneumonic effusion. The patient has already been initiated on broad- spectrum antimicrobials. Unfortunately, the patient was unable to tolerate an attempted an ultrasound-guided thoracentesis on March 23. Echocardiogram revealed normal ejection fraction. Plan to continue current supportive measures and aerosol treatments as ordered. Patient has had some improvement in leukocytosis. Could consider transition to Levaquin 750 mg p.o. daily versus an ID consult as patient may require protracted antibiotics. Previous PFT in 2018 did not show any obstructive lung disease. 4. Troponin elevation Most likely secondary to demand ischemia. Echocardiogram was unrevealing. Patient could have an outpatient work-up, but likely not necessary to have an inpatient work-up. This note was generated with Dragon dictation software. It may contain incorrect words, spelling, and punctuation that were not noted in checking the note before signing. Subjective Subjective Patient subjectively feels improved compared to yesterday. Patient does report a periodic productive cough, but states sputum is clearing. Patient still has some dyspnea on exertion. No bleeding complications of been reported. Objective Data Objective Data Vital Signs: Vital Signs Temp Pulse Resp BP Pulse Ox O2 Del Method O2 Flow Rate 36.8 C 107 H 18 107/63 97 Nasal Cannula 2 03/28/23 03:08 03/28/23 03:08 03/28/23 03:08 03/28/23 03:08 03/28/23 03:08 03/28/23 04:00 03/28/23 04:00 Oxygen Flow Rate (L/min) 2 Oxygen Delivery Method Nasal Cannula Weight: 71.8 kg Body Mass Index (BMI) 27.1 Intake & Output: Intake and Output for Last 24 Hours 03/26/23 03/27/23 03/28/23 23:59 23:59 23:59 Intake Total 995.74 / 995.74 1397.92 / 1397.92 230 / 230 Output Total 970 / 970 950 / 950 750 / 750 Balance 25.74 / 25.74 447.92 / 447.92 -520 / -520 Medical Nutrition Assessment Dietitian: Malnutrition Criteria Met Start: 03/23/23 10:09 Freq: Status: Active Protocol: Document 03/23/23 10:09 JOHANA (Rec: 03/23/23 10:09 JOHANA [id number]) Nutrition Malnutrition Evidence of Malnutrition Exists Yes Malnutrition (severe): Acute Illness/Injury Evidenced By Suboptimal Energy Intake ( Severe),Weight Loss (Severe), Physical Changes (Mild) Clinical Problem Acute Disease or Injury Related Malnutrition Etiology SUSPECTED r/t pt being sick and likely not consuming adequate energy and 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 Signs/Symptoms as evidenced by predicted po intake <50% of est nutritional needs x > 2 wk and Status Active Problem Altered Nutrient-Related Laboratory Values Etiology related to uncontrolled diabetes Signs/Symptoms as evidenced by A1c = 12.4 and gluc 408 today Status Active Problem Recommendation Dietitian Recommendations/Changes Rec Cardiac 1800 aaron CHO Control diet when able to resume po diet Will order 4 oz glucerna shake tid w/ medpass for increased nutrition if consumed.d/t suspected malnutrition Lab / Micro Data Attestation: I reviewed the patient's lab results. 03/28/23 04:53 03/28/23 04:53 Labs: Laboratory Results - last 24 hr 03/24/23 06:00: Diff Path Review Reviewed 03/25/23 06:20: Diff Path Review Reviewed 03/26/23 03:15: Diff Path Review Reviewed 03/27/23 05:25: Diff Path Review Reviewed 03/27/23 09:23: POC Glucose 106 03/27/23 11:20: Random Vancomycin 17.7 H 03/27/23 15:25: U Random Total Protein 58.7 H, Urine Creatinine 30.90, P rotein/Creatinin Ratio 1900 H 03/27/23 16:26: POC Glucose 187 H 03/27/23 22:43: POC Glucose 222 H 03/28/23 03:05: POC Glucose 209 H 03/28/23 04:53: WBC 33.5 H*, RBC 2.68 L, Hgb 9.2 L, Hct 28.9 L, MCV 107.8 H, MCH 34.3 H, MCHC 31.8 L, RDW Std Deviation 62.9 H, RDW Coeff of Merry 15.8 H, Plt Count 103 L, MPV 13.8 H, Diff Path Review October, Sodium 149 H, Potassium 3.0 L, Chloride 119 H, Carbon Dioxide 21.0, Anion Gap 9, BUN 69 H, Creatinine 3.47 H , Estim Creat Clear Calc 14.22, Est GFR (MDRD) Af Amer 22 L, Est GFR (MDRD) Non- Af 18 L, BUN/Creatinine Ratio 19.9, Glucose 205 H, Calcium 9.1 03/28/23 06:31: POC Glucose 152 H Micro: Microbiology 03/22/23 20:57 Blood Culture (Wb) - Anticubital Right Blood Culture - Final No growth in 5 days. 03/22/23 22:22 Blood Culture (Wb) - Right Forearm Blood Culture - Final No growth in 5 days. 03/23/23 05:25 Sputum, Expectorated/Coughed Gram Stain - Final 03/23/23 05:25 Sputum, Expectorated/Coughed Respiratory Culture - Final Enterobacter cloacae complex 03/22/23 16:40 Urine, Clean Catch Urine Culture - Final Culture exhibits no growth. 03/22/23 16:40 Urine, Clean Catch Legionella Antigen - Final 03/22/23 16:40 Urine, Clean Catch Streptococcus pneumoniae Antigen (M - Final 03/22/23 20:50 Mucosa - Nasopharyngeal Coronavirus COVID-19 PCR - Final 03/22/23 20:50 Mucosa - Nasopharyngeal Respiratory Panel (PCR) - Final 03/22/23 16:59 Nasal Secretion SARS-CoV-2 & FLU Antigen (Rapid) - Final Physical Exam Const alert and no apparent distress Constitutional Narrative: Following commands appropriately General Appearance: cooperative HEENT normocephalic and head/scalp atraumatic Eyes PERRL, EOMs intact bilaterally and conjunctivae normal Neck supple General: trachea midline Chest inspection of chest normal Resp normal respiratory effort Effort and Inspection: Negative for actively coughing Auscultation: diminished lung sounds Cardio Rate: tachycardic Rhythm: abnormal rhythm irregularly irregular GI normal to inspection, nondistended, normoactive bowel sounds Extremity no clubbing, cyanosis or edema Skin no rashes or lesions noted Neuro CN's II-XII intact bilaterally, moves all extremities and no focal motor deficits Psych cooperative and affect normal Activity / Motor Behavior: restless Mood & Affect: flat affect Charges/Coding Visit Charges Inpatient E&M: 49255 Subs Hosp L2
[2023-03-28 08:16] LABS: Bedside Glucose 137 mg/dL (74-106)
--- NOTE | 2023-03-28 08:31 | PCM.PN.HOSP ---
Reason for Visit Reason for Visit: Diagnoses Type 2 diabetes mellitus with ketoacidosis without coma (03/22/23) Metabolic encephalopathy (03/22/23) Unspecified atrial fibrillation (03/22/23) Pleural effusion, not elsewhere classified (03/22/23) Acute kidney failure, unspecified (03/22/23) Other malaise (03/22/23) Subjective Subjective Denies shortness of breath. Objective Data Objective Data Vital Signs: Vital Signs Temp Pulse Resp BP Pulse Ox O2 Del Method O2 Flow Rate 36.8 C 99 24 H 107/63 95 Nasal Cannula 2 03/28/23 03:08 03/28/23 07:11 03/28/23 07:11 03/28/23 03:08 03/28/23 07:15 03/28/23 08:06 03/28/23 08:06 Oxygen Flow Rate (L/min) 2 Oxygen Delivery Method Nasal Cannula Weight: 71.8 kg Body Mass Index (BMI) 27.1 Intake & Output: Intake and Output for Last 24 Hours 03/26/23 03/27/23 03/28/23 23:59 23:59 23:59 Intake Total 995.74 / 995.74 1397.92 / 1397.92 230 / 230 Output Total 970 / 970 950 / 950 750 / 750 Balance 25.74 / 25.74 447.92 / 447.92 -520 / -520 Medical Nutrition Assessment Dietitian: Malnutrition Criteria Met Start: 03/23/23 10:09 Freq: Status: Active Protocol: Document 03/23/23 10:09 JOHANA (Rec: 03/23/23 10:09 JOHANA [id number]) Nutrition Malnutrition Evidence of Malnutrition Exists Yes Malnutrition (severe): Acute Illness/Injury Evidenced By Suboptimal Energy Intake ( Severe),Weight Loss (Severe), Physical Changes (Mild) Clinical Problem Acute Disease or Injury Related Malnutrition Etiology SUSPECTED r/t pt being sick and likely not consuming adequate energy and 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 Signs/Symptoms as evidenced by predicted po intake <50% of est nutritional needs x > 2 wk and Status Active Problem Altered Nutrient-Related Laboratory Values Etiology related to uncontrolled diabetes Signs/Symptoms as evidenced by A1c = 12.4 and gluc 408 today Status Active Problem Recommendation Dietitian Recommendations/Changes Rec Cardiac 1800 aaron CHO Control diet when able to resume po diet Will order 4 oz glucerna shake tid w/ medpass for increased nutrition if consumed.d/t suspected malnutrition Lab / Micro Data 03/28/23 04:53 03/28/23 04:53 Labs: Laboratory Results - last 24 hr 03/24/23 06:00: Diff Path Review Reviewed 03/25/23 06:20: Diff Path Review Reviewed 03/26/23 03:15: Diff Path Review Reviewed 03/27/23 05:25: Diff Path Review Reviewed 03/27/23 09:23: POC Glucose 106 03/27/23 11:20: Random Vancomycin 17.7 H 03/27/23 15:25: U Random Total Protein 58.7 H, Urine Creatinine 30.90, Protein/Creatinin Ratio 1900 H 03/27/23 16:26: POC Glucose 187 H 03/27/23 22:43: POC Glucose 222 H 03/28/23 03:05: POC Glucose 209 H 03/28/23 04:53: WBC 33.5 H*, RBC 2.68 L, Hgb 9.2 L, Hct 28.9 L, MCV 107.8 H, MCH 34.3 H, MCHC 31.8 L, RDW Std Deviation 62.9 H, RDW Coeff of Merry 15.8 H, Plt Count 103 L, MPV 13.8 H, Diff Path Review October, Sodium 149 H, Potassium 3.0 L, Chloride 119 H, Carbon Dioxide 21.0, Anion Gap 9, BUN 69 H, Creatinine 3.47 H, Estim Creat Clear Calc 14.22, Est GFR (MDRD) Af Amer 22 L, Est GFR (MDRD) Non-Af 18 L, BUN/Creatinine Ratio 19.9, Glucose 205 H, Calcium 9.1 03/28/23 06:31: POC Glucose 152 H 03/28/23 07:58: POC Glucose 137 H Micro: Microbiology 03/22/23 20:57 Blood Culture (Wb) - Anticubital Right Blood Culture - Final No growth in 5 days. 03/22/23 22:22 Blood Culture (Wb) - Right Forearm Blood Culture - Final No growth in 5 days. 03/23/23 05:25 Sputum, Expectorated/Coughed Gram Stain - Final 03/23/23 05:25 Sputum, Expectorated/Coughed Respiratory Culture - Final Enterobacter cloacae complex 03/22/23 16:40 Urine, Clean Catch Urine Culture - Final Culture exhibits no growth. 03/22/23 16:40 Urine, Clean Catch Legionella Antigen - Final 03/22/23 16:40 Urine, Clean Catch Streptococcus pneumoniae Antigen (M - Final 03/22/23 20:50 Mucosa - Nasopharyngeal Coronavirus COVID-19 PCR - Final 03/22/23 20:50 Mucosa - Nasopharyngeal Respiratory Panel (PCR) - Final 03/22/23 16:59 Nasal Secretion SARS-CoV-2 & FLU Antigen (Rapid) - Final Physical Exam Const alert and no apparent distress HEENT head/scalp atraumatic and moist oral mucous membranes Resp normal respiratory effort, no retractions, no use of accessory muscles and clear to auscultation bilaterally Cardio regular rate, regular rhythm, S1 normal heart sound and S2 normal heart sound GI normal to inspection, nondistended, normoactive bowel sounds, soft to palpation and non-tender Extremity normal to inspection Assessment & Plan Assessment/Plan (1) Pleural effusion, right: PLAN: Unclear type, though favor exudative. Loculated. On broad spectrum abx with pip/tazo. Thoracentesis attempted on the , but was unable to be safely performed due to confusion. Given relatively small size would hold on repeating as high risk of complication from agitation. (2) DKA (diabetic ketoacidoses): QUALIFIERS: Diabetes mellitus complication detail: without coma Diabetes mellitus type: type 2 Qualified Code(s): E11.10 - Type 2 diabetes mellitus with ketoacidosis without coma PLAN: POA history of type 2 diabetes Presenting labs of glucose 702, bicarb 16, anion gap 16. Initiated on insulin drip on admission and admitted to the ICU. Anion gap closed by 03/23, transitioned off insulin drip and transferred out of ICU. Patient's home medication regimen unclear. Hemoglobin A1c of 12.4%. Increase to 15 BID. (3) Metabolic encephalopathy: PLAN: Acute metabolic encephalopathy, improving Suspected secondary to acute infection as above with known underlying blindness and difficulty hearing. Unclear if patient has underlying dementia as well. ? Patient has remained much more calm since afternoon of 03/23. Continue delirium precautions and conservative measures to redirect patient as needed. Treating underlying infection as above. Can consider IV antipsychotics as needed. (4) Atrial fibrillation: PLAN: New onset atrial fibrillation Echo shows an EF of 55%. DC heparin gtt. Start apixaban 2.5 BID. Follows with cardiology outpatient, can continue outpatient follow-up for now. Suspect new onset A-fib is primarily secondary to acute infection. Monitor telemetry. 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 Creatinine now up 3.32 FENa 1.18%. Renal ultrasound negative. PVR Concern it could be worsened by abx. DC vancomycin (last received 03/24). IVF. Ongoing. Consult nephrology. (6) Debility: PLAN: PT/OT/case management following. Lives at home with his . Will await therapy evaluation prior to determining needs on discharge. PLAN: Plan Chronic conditions: Chronic hypoxic respiratory failure on home 3 L nasal cannula? Secondary to previous COVID infection. Chest x-ray on admit showed interstitial fibrosis that was stable, as well as acute loculated effusion as noted above. Continue supplemental oxygen, wean as able. Treat pneumonia as noted above. Continue home inhalers. Hypertension: Holding home losartan and Coreg for now, restart as able. Hard of hearing: Ensure patient has hearing aids in as much as able. Blindness: Per history. Complicates treatment. DVT prophylaxis: not indicated as on apixaban. CODE STATUS: Full code, verified Expected disposition: Home with home health care versus SNF, TBD Charges/Coding Visit Charges Inpatient E&M: 85501 Subs Hosp L2
[2023-03-28] MEDS: Potassium Chloride Oral Tablet 20 MEQ 40 MEQ PO (09:07)
[2023-03-28] MEDS: Pantoprazole Sodium 40 MG Tablet PO (09:07)
[2023-03-28] MEDS: APIXABAN 2.5 MG TABLET (WCH) PO ×2 (09:07→21:36)
[2023-03-28] MEDS: Piperacil/Tazobactam 3.375 GM in 0.9% Normal Saline (50mL MB+) 50 ML IV ×2 (09:08→21:34)
[2023-03-28] MEDS: Insulin Glargine-YFGN 100 UNIT/ML Pen 20 UNIT SC ×2 (09:11→21:37)
[2023-03-28] MEDS: Acetaminophen 325 MG Tablet 650 MG PO ×2 (11:39→22:39)
[2023-03-28 11:59] LABS: Bedside Glucose 150 mg/dL (74-106)
--- NOTE | 2023-03-28 14:59 | CASEMGMT ---
ALEKSANDR reviewed patient's therapy notes and patient is not doing well with therapy. ALEKSANDR called patient's and left her a voice mail requesting a return call. Arianne NUNEZ
[2023-03-28] MEDS: 0.9% Normal Saline (1000mL) 1,000 ML 125 ML IV (15:13)
--- NOTE | 2023-03-28 15:40 | PN.RENAL_ITS ---
Subjective Subjective says his mouth has ulcers, wants something for pain. urine output is ok. cr about the same Objective Data Objective Data Vital Signs: Vital Signs Temp Pulse Resp BP Pulse Ox O2 Del Method O2 Flow Rate 98.3 F 95 18 105/81 H 95 Nasal Cannula 2 03/28/23 15:00 03/28/23 15:00 03/28/23 15:00 03/28/23 15:00 03/28/23 15:00 03/28/23 15:00 03/28/23 15:00 Oxygen Flow Rate (L/min) 2 Oxygen Delivery Method Nasal Cannula Weight: 71.8 kg Body Mass Index (BMI) 27.1 Intake & Output: Intake and Output for Last 24 Hours 03/26/23 03/27/23 03/28/23 23:59 23:59 23:59 Intake Total 995.74 / 995.74 1397.92 / 1397.92 520 / 520 Output Total 970 / 970 950 / 950 1400 / 1400 Balance 25.74 / 25.74 447.92 / 447.92 -880 / -880 Medical Nutrition Assessment Dietitian: Malnutrition Criteria Met Start: 03/23/23 10: 09 Freq: Status: Active Protocol: Document 03/23/23 10:09 JOHANA (Rec: 03/23/23 10:09 JOHANA [id number]) Nutrition Malnutrition Evidence of Malnutrition Exists Yes Malnutrition (severe): Acute Illness/Injury Evidenced By Suboptimal Energy Intake ( Severe),Weight Loss (Severe), Physical Changes (Mild) Clinical Problem Acute Disease or Injury Related Malnutrition Etiology SUSPECTED r/t pt being sick and likely not consuming adequate energy and 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 Signs/Symptoms as evidenced by predicted po intake <50% of est nutritional needs x > 2 wk and Status Active Problem Altered Nutrient-Related Laboratory Values Etiology related to uncontrolled diabetes Signs/Symptoms as evidenced by A1c = 12.4 and gluc 408 today Status Active Problem Recommendation Dietitian Recommendations/Changes Rec Cardiac 1800 aaron CHO Control diet when able to resume po diet Will order 4 oz glucerna shake tid w/ medpass for increased nutrition if consumed.d/t suspected malnutrition Lab / Micro Data 03/28/23 04:53 03/28/23 04:53 Labs: Laboratory Results - last 24 hr 03/27/23 15:25: U Random Total Protein 58.7 H, Urine Creatinine 30.90, Protein/Creatinin Ratio 1900 H 03/27/23 16:26: POC Glucose 187 H 03/27/23 22:43: POC Glucose 222 H 03/28/23 03:05: POC Glucose 209 H 03/28/23 04:53: WBC 33.5 H*, RBC 2.68 L, Hgb 9.2 L, Hct 28.9 L, MCV 107.8 H, MCH 34.3 H, MCHC 31.8 L, RDW Std Deviation 62.9 H, RDW Coeff of Merry 15.8 H, Plt Count 103 L, MPV 13.8 H, Diff Path Review October, Sodium 149 H, Potassium 3.0 L, Chloride 119 H, Carbon Dioxide 21.0, Anion Gap 9, BUN 69 H, Creatinine 3.47 H , Estim Creat Clear Calc 14.22, Est GFR (MDRD) Af Amer 22 L, Est GFR (MDRD) Non- Af 18 L, BUN/Creatinine Ratio 19.9, Glucose 205 H, Calcium 9.1 03/28/23 06:31: POC Glucose 152 H 03/28/23 07:58: POC Glucose 137 H 03/28/23 11:39: POC Glucose 150 H Micro: Microbiology 03/22/23 20:57 Blood Culture (Wb) - Anticubital Right Blood Culture - Final No growth in 5 days. 03/22/23 22:22 Blood Culture (Wb) - Right Forearm Blood Culture - Final No growth in 5 days. 03/23/23 05:25 Sputum, Expectorated/Coughed Gram Stain - Final 03/23/23 05:25 Sputum, Expectorated/Coughed Respiratory Culture - Final Enterobacter cloacae complex 03/22/23 16:40 Urine, Clean Catch Urine Culture - Final Culture exhibits no growth. 03/22/23 16:40 Urine, Clean Catch Legionella Antigen - Final 03/22/23 16:40 Urine, Clean Catch Streptococcus pneumoniae Antigen (M - Final 03/22/23 20:50 Mucosa - Nasopharyngeal Coronavirus COVID-19 PCR - Final 03/22/23 20:50 Mucosa - Nasopharyngeal Respiratory Panel (PCR) - Final 03/22/23 16:59 Nasal Secretion SARS-CoV-2 & FLU Antigen (Rapid) - Final Physical Exam Narrative Alert to name, hard of hearing, no apparent distress S1, S2, rhythm irregular rate controlled Lung sounds clear anteriorly diminished breath sounds abdomen soft, nontender No pitting edema Assessment & Plan Assessment/Plan (1) CHRIST (acute kidney injury): (2) Chronic kidney disease: QUALIFIERS: Chronic kidney disease stage: stage 2 (mild) Quali fied Code(s): N18.2 - Chronic kidney disease, stage 2 (mild) (3) DKA (diabetic ketoacidoses): QUALIFIERS: Diabetes mellitus type: type 2 Diabetes mellitus complication detail: without coma Qualified Code(s): E11.10 - Type 2 diabetes mellitus with ketoacidosis without coma (4) Atrial fibrillation: PLAN: Plan Nonoliguric CHRIST superimposed on CKD stage III. Serum creatinine was 2.67 on admission, improved to 1.9 on 03/23, was on IVF and treating DKA. Serum creatinine was 2.0 on 03/24 and has been slowly rising over the past few days. renal US is ok urine PCR 1.9 gm BP is ok clinically still looks on dry side breathing status is borderline hold fluids for now Hypernatremia. due to poor oral intake
[2023-03-28 17:14] LABS: Bedside Glucose 129 mg/dL (74-106)
[2023-03-28 22:54] LABS: Bedside Glucose 160 mg/dL (74-106)
[2023-03-29 02:53] VITALS: BMI 27.2
[2023-03-29] MEDS: Insulin Lispro 100 UNIT/ML INSULN.PEN SC ×4 (03:14→22:59)
[2023-03-29 03:35] LABS: Bedside Glucose 173 mg/dL (74-106)
[2023-03-29] MEDS: Menthol/Lanolin/Calamine/Znox 113 GM Tube 1 APPLIC TOPICAL ×3 (06:22→22:57)
[2023-03-29 06:25] VITALS: BP 139/78; PULSE 95; RESP 20; TEMP 36.6; O2SAT 96
[2023-03-29 06:46] LABS: Bedside Glucose 176 mg/dL (74-106)
[2023-03-29 07:48] VITALS: O2SAT 96
[2023-03-29 09:25] LABS: Pathologist Review Reviewed
[2023-03-29 09:32] LABS: Hemoglobin 9.2 g/dL (13.0-16.5); Mean Corp Hgb Conc 32.9 g/dL (32-36); Mean Corpuscular Hgb 35.2 pg (27.0-32.0); Mean Corpuscular Volume 107.3 fL (80-94); Mean Platelet Vol. 12.8 fl (6.2-12.0); POSITIVE COUNT YES; POSITIVE DIFFERENTIAL YES; POSITIVE MORPHOLOGY YES; Platelet Count 100 K/mm3 (150-450); RBC Distribution Width CV 15.8 % (11.6-14.6); RBC Distribution Width SD 61.5 fl (35.1-43.9); Red Blood Count 2.61 M/mm3 (4.6-6.2); White Blood Count 29.4 K/mm3 (4.4-11.0)
--- NOTE | 2023-03-29 09:32 | PCM.PN.REN ---
Subjective Subjective Alert to name but confused to time and place, no acute distress noted. No overnight events. Objective Data Objective Data Vital Signs: Vital Signs Temp Pulse Resp BP Pulse Ox O2 Del Method O2 Flow Rate 97.8 F 95 20 H 139/78 H 96 Nasal Cannula 2 03/29/23 06:25 03/29/23 06:25 03/29/23 06:25 03/29/23 06:25 03/29/23 07:48 03/29/23 07:48 03/29/23 07:48 Oxygen Flow Rate (L/min) 2 Oxygen Delivery Method Nasal Cannula Weight: 72 kg Body Mass Index (BMI) 27.2 Intake & Output: Intake and Output for Last 24 Hours 03/27/23 03/28/23 03/29/23 23:59 23:59 23:59 Intake Total 1397.92 / 1397.92 1770 / 1770 50 / 50 Output Total 950 / 950 1750 / 2250 1150 / 1150 Balance 447.92 / 447.92 20 / -480 -1100 / -1100 Medical Nutrition Assessment Dietitian: Malnutrition Criteria Met Start: 03/23/23 10:09 Freq: Status: Active Protocol: Document 03/23/23 10:09 JOHANA (Rec: 03/23/23 10:09 JOHANA [id number]) Nutrition Malnutrition Evidence of Malnutrition Exists Yes Malnutrition (severe): Acute Illness/Injury Evidenced By Suboptimal Energy Intake ( Severe),Weight Loss (Severe), Physical Changes (Mild) Clinical Problem Acute Disease or Injury Related Malnutrition Etiology SUSPECTED r/t pt being sick and likely not consuming adequate energy and 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 Signs/Symptoms as evidenced by predicted po intake <50% of est nutritional needs x > 2 wk and Status Active Problem Altered Nutrient-Related Laboratory Values Etiology related to uncontrolled diabetes Signs/Symptoms as evidenced by A1c = 12.4 and gluc 408 today Status Active Problem Recommendation Dietitian Recommendations/Changes Rec Cardiac 1800 aaron CHO Control diet when able to resume po diet Will order 4 oz glucerna shake tid w/ medpass for increased nutrition if consumed.d/t suspected malnutrition Lab / Micro Data 03/28/23 04:53 03/28/23 04:53 Labs: Laboratory Results - last 24 hr 03/28/23 04:53: Diff Path Review Reviewed 03/28/23 11:39: POC Glucose 150 H 03/28/23 16:45: POC Glucose 129 H 03/28/23 21:31: POC Glucose 160 H 03/29/23 03:12: POC Glucose 173 H 03/29/23 06:21: POC Glucose 176 H Micro: Microbiology 03/22/23 20:57 Blood Culture (Wb) - Anticubital Right Blood Culture - Final No growth in 5 days. 03/22/23 22:22 Blood Culture (Wb) - Right Forearm Blood Culture - Final No growth in 5 days. 03/23/23 05:25 Sputum, Expectorated/Coughed Gram Stain - Final 03/23/23 05:25 Sputum, Expectorated/Coughed Respiratory Culture - Final Enterobacter cloacae complex 03/22/23 16:40 Urine, Clean Catch Urine Culture - Final Culture exhibits no growth. 03/22/23 16:40 Urine, Clean Catch Legionella Antigen - Final 03/22/23 16:40 Urine, Clean Catch Streptococcus pneumoniae Antigen (M - Final 03/22/23 20:50 Mucosa - Nasopharyngeal Coronavirus COVID-19 PCR - Final 03/22/23 20:50 Mucosa - Nasopharyngeal Respiratory Panel (PCR) - Final 03/22/23 16:59 Nasal Secretion SARS-CoV-2 & FLU Antigen (Rapid) - Final Physical Exam Narrative Alert to name, hard of hearing, no apparent distress S1, S2, rhythm irregular rate controlled Lung sounds clear anteriorly diminished breath sounds, no rales or rhonchi abdomen soft, nontender No pitting edema Assessment & Plan Assessment/Plan (1) CHRIST (acute kidney injury): (2) Chronic kidney disease: QUALIFIERS: Chronic kidney disease stage: stage 2 (mild) Qualified Code(s): N18.2 - Chronic kidney disease, stage 2 (mild) (3) DKA (diabetic ketoacidoses): QUALIFIERS: Diabetes mellitus type: type 2 Diabetes mellitus complication detail: without coma Qualified Code(s): E11.10 - Type 2 diabetes mellitus with ketoacidosis without coma (4) Atrial fibrillation: PLAN: Plan Nonoliguric CHRIST superimposed on CKD stage III. Serum creatinine was 2.67 on admission, improved to 1.9 on 03/23, was on IVF and treating DKA. Serum creatinine was 2.0 on 03/24 and has been slowly rising over the past few days. Yesterday creatinine up to 3.47, labs pending this morning. Patient did receive 1 L IV fluids yesterday. Hopefully renal function has peaked and will begin turning around. Yesterday no acidosis, potassium was low and received replacement. renal US is ok urine PCR 1.9 gm BP is ok clinically still looks on dry side, per staff report patient has not been eating, patient is a feed Hypernatremia due to poor oral/lack of free water intake. Sodium was 149 yesterday. Patient did receive 1 L IV fluids yesterday. Labs pending today. If serum sodium still elevated may need D5W
[2023-03-29 09:35] LABS: Differential Indicated MANUAL DIFF
[2023-03-29 09:47] LABS: Anion Gap 5 (5-15); BUN 69 mg/dL (7-18); BUN/Creat Ratio 19.7 RATIO (10-20); Calcium,Total 9.2 mg/dL (8.5-10.1); Chloride 126 mmol/L (98-107); EST Glomerular Filtration Rate 18 mL/min (>60); Est Glom Filt Rate - Afr Amer 22 mL/min (>60); Glucose 158 mg/dL (74-106); Phosphorus 3.4 mg/dL (2.5-4.9); Potassium 3.3 mmol/L (3.5-5.1); Sodium Level 157 mmol/L (136-145)
[2023-03-29] MEDS: Piperacil/Tazobactam 3.375 GM in 0.9% Normal Saline (50mL MB+) 50 ML IV ×2 (09:57→22:56)
[2023-03-29] MEDS: Insulin Glargine-YFGN 100 UNIT/ML Pen 20 UNIT SC ×2 (09:59→23:00)
[2023-03-29] MEDS: Pantoprazole Sodium 40 MG Tablet PO (10:00)
[2023-03-29] MEDS: APIXABAN 2.5 MG TABLET (WCH) PO ×2 (10:00→22:58)
--- NOTE | 2023-03-29 10:05 | PCM.PN.INT ---
Assessment & Plan Assessment/Plan (1) DKA (diabetic ketoacidoses): QUALIFIERS: Diabetes mellitus type: type 2 Diabetes mellitus complication detail: without coma Qualified Code(s): E11.10 - Type 2 diabetes mellitus with ketoacidosis without coma (2) Pleural effusion, right: PLAN: Plan RECOMMENDATIONS: 1. Continue basal and sliding scale insulin coverage. Continue Accu-Cheks as ordered. 2. Consider transition to high-dose Levaquin versus ID consult 3. Wean supplemental oxygen to maintain saturations at or above 90%. 4. Encourage incentive spirometer use and mobilize patient as tolerated. 5. Continue scheduled budesonide aerosols and as needed albuterol. 6. Appreciate renal consult IMPRESSIONS: 1. Diabetic ketoacidosis Resolved at this time. Anion gap has been closed. The patient has been initiated on basal and sliding scale insulin coverage, which will be continued. The patient will require diabetic education, given that he has a hemoglobin A1c of greater than 12. Blood sugars are marginally controlled, but there is no signs of DKA. Blood sugars are somewhat better after increase in basal insulin. Blood sugars will be difficult to control given problem #3. 2. Acute on chronic kidney disease Most likely prerenal in etiology in the setting of #1. Continue to monitor urine output. Patient is slowly increasing in creatinine and BUN. Patient may have an element of osmotic diuresis secondary to elevated blood sugars. No current indication for renal replacement therapy. Appreciate renal recommendations 3. Loculated right-sided pleural effusion/history of asthma/chronic hypoxemic respiratory failure The patient has a loculated right-sided pleural effusion on CT imaging of the chest, which could be related to underlying cardiac etiologies and/or a parapneumonic effusion. The patient has already been initiated on broad-spectrum antimicrobials. Unfortunately, the patient was unable to tolerate an attempted an ultrasound-guided thoracentesis on March 23. Echocardiogram revealed normal ejection fraction. Plan to continue current supportive measures and aerosol treatments as ordered. Patient has had some improvement in leukocytosis. Could consider transition to Levaquin 750 mg p.o. daily versus an ID consult as patient may require protracted antibiotics. Previous PFT in 2018 did not show any obstructive lung disease, so steroids would likely not be indicated. 4. Troponin elevation Most likely secondary to demand ischemia. Echocardiogram was unrevealing. Patient could have an outpatient work-up, but likely not necessary to have an inpatient work-up. This note was generated with [employer] dictation software. It may contain incorrect words, spelling, and punctuation that were not noted in checking the note before signing. Subjective Subjective Patient did okay overnight from a hemodynamic standpoint. However, patient has had some confusion trying to find ways to lose weight and has successfully reached out to the she fell directly into his arms also safely return inside the building this viral Objective Data Objective Data Vital Signs: Vital Signs Temp Pulse Resp BP Pulse Ox O2 Del Method O2 Flow Rate 36.6 C 95 20 H 139/78 H 96 Nasal Cannula 2 03/29/23 06:25 03/29/23 06:25 03/29/23 06:25 03/29/23 06:25 03/29/23 07:48 03/29/23 07:48 03/29/23 07:48 Oxygen Flow Rate (L/min) 2 Oxygen Delivery Method Nasal Cannula Weight: 72 kg Body Mass Index (BMI) 27.2 Intake & Output: Intake and Output for Last 24 Hours 03/27/23 03/28/23 03/29/23 23:59 23:59 23:59 Intake Total 1397.92 / 1397.92 1770 / 1770 50 / 50 Output Total 950 / 950 1750 / 2250 1150 / 1150 Balance 447.92 / 447.92 20 / -480 -1100 / -1100 Medical Nutrition Assessment Dietitian: Malnutrition Criteria Met Start: 03/23/23 10:09 Freq: Status: Active Protocol: Document 03/23/23 10:09 JOHANA (Rec: 03/23/23 10:09 JOHANA [id number]) Nutrition Malnutrition Evidence of Malnutrition Exists Yes Malnutrition (severe): Acute Illness/Injury Evidenced By Suboptimal Energy Intake ( Severe),Weight Loss (Severe), Physical Changes (Mild) Clinical Problem Acute Disease or Injury Related Malnutrition Etiology SUSPECTED r/t pt being sick and likely not consuming adequate energy and 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 Signs/Symptoms as evidenced by predicted po intake <50% of est nutritional needs x > 2 wk and Status Active Problem Altered Nutrient-Related Laboratory Values Etiology related to uncontrolled diabetes Signs/Symptoms as evidenced by A1c = 12.4 and gluc 408 today Status Active Problem Recommendation Dietitian Recommendations/Changes Rec Cardiac 1800 aaron CHO Control diet when able to resume po diet Will order 4 oz glucerna shake tid w/ medpass for increased nutrition if consumed.d/t suspected malnutrition Lab / Micro Data Attestation: I reviewed the patient's lab results. 03/29/23 09:10 03/29/23 09:10 Labs: Laboratory Results - last 24 hr 03/28/23 04:53: Diff Path Review Reviewed 03/28/23 11:39: POC Glucose 150 H 03/28/23 16:45: POC Glucose 129 H 03/28/23 21:31: POC Glucose 160 H 03/29/23 03:12: POC Glucose 173 H 03/29/23 06:21: POC Glucose 176 H 03/29/23 09:10: WBC 29.4 H, RBC 2.61 L, Hgb 9.2 L, Hct 28.0 L, MCV 107.3 H, MCH 35.2 H, MCHC 32.9, RDW Std Deviation 61.5 H, RDW Coeff of Merry 15.8 H, Plt Count 100 L, MPV 12.8 H, Neut % (Auto) Not Reportable, Sodium 157 H, Potassium 3.3 L, Chloride 126 H, Carbon Dioxide 26.0, Anion Gap 5, BUN 69 H, Creatinine 3.50 H, Estim Creat Clear Calc 14.10, Est GFR (MDRD) Af Amer 22 L, Est GFR (MDRD) Non-Af 18 L, BUN/Creatinine Ratio 19.7, Glucose 158 H, Calcium 9.2, Phosphorus 3.4, Magnesium 2.0 Micro: Microbiology 03/22/23 20:57 Blood Culture (Wb) - Anticubital Right Blood Culture - Final No growth in 5 days. 03/22/23 22:22 Blood Culture (Wb) - Right Forearm Blood Culture - Final No growth in 5 days. 03/23/23 05:25 Sputum, Expectorated/Coughed Gram Stain - Final 03/23/23 05:25 Sputum, Expectorated/Coughed Respiratory Culture - Final Enterobacter cloacae complex 03/22/23 16:40 Urine, Clean Catch Urine Culture - Final Culture exhibits no growth. 03/22/23 16:40 Urine, Clean Catch Legionella Antigen - Final 03/22/23 16:40 Urine, Clean Catch Streptococcus pneumoniae Antigen (M - Final 03/22/23 20:50 Mucosa - Nasopharyngeal Coronavirus COVID-19 PCR - Final 03/22/23 20:50 Mucosa - Nasopharyngeal Respiratory Panel (PCR) - Final 03/22/23 16:59 Nasal Secretion SARS-CoV-2 & FLU Antigen (Rapid) - Final Physical Exam Const alert and no apparent distress Constitutional Narrative: Following commands appropriately. Appears to be more confused today. HEENT normocephalic and head/scalp atraumatic Eyes PERRL, EOMs intact bilaterally and conjunctivae normal Neck supple General: trachea midline Chest inspection of chest normal Resp normal respiratory effort Effort and Inspection: Negative for actively coughing Auscultation: diminished lung sounds; Negative for rales, rhonchi or wheezes Cardio regular rate and regular rhythm Rate: tachycardic Rhythm: abnormal rhythm irregularly irregular GI normal to inspection, nondistended, normoactive bowel sounds Extremity no clubbing, cyanosis or edema Skin no rashes or lesions noted Neuro CN's II-XII intact bilaterally, moves all extremities and no focal motor deficits Psych cooperative and affect normal Activity / Motor Behavior: restless Mood & Affect: flat affect Charges/Coding Visit Charges Inpatient E&M: 35758 Subs Hosp L2
--- NOTE | 2023-03-29 10:35 | PN.HOSP_ITS ---
Reason for Visit Reason for Visit: Diagnoses Type 2 diabetes mellitus with ketoacidosis without coma (03/22/23) Metabolic encephalopathy (03/22/23) Unspecified atrial fibrillation (03/22/23) Pleural effusion, not elsewhere classified (03/22/23) Acute kidney failure, unspecified (03/22/23) Chronic kidney disease, stage 2 (mild) (03/22/23) Other malaise (03/22/23) Subjective Subjective Per nursing, has been eating more. Objective Data Objective Data Vital Signs: Vital Signs Temp Pulse Resp BP Pulse Ox O2 Del Method O2 Flow Rate 36.6 C 95 20 H 139/78 H 96 Nasal Cannula 2 03/29/23 06:25 03/29/23 06:25 03/29/23 06:25 03/29/23 06:25 03/29/23 07:48 03/29/23 07:48 03/29/23 07:48 Oxygen Flow Rate (L/min) 2 Oxygen Delivery Method Nasal Cannula Weight: 72 kg Body Mass Index (BMI) 27.2 Intake & Output: Intake and Output for Last 24 Hours 03/27/23 03/28/23 03/29/23 23:59 23:59 23:59 Intake Total 1397.92 / 1397.92 1770 / 1770 50 / 50 Output Total 950 / 950 1750 / 2250 1150 / 1150 Balance 447.92 / 447.92 20 / -480 -1100 / -1100 Medical Nutrition Assessment Dietitian: Malnutrition Criteria Met Start: 03/23/23 10:09 Freq: Status: Active Protocol: Document 03/23/23 10:09 JOHANA (Rec: 03/23/23 10:09 JOHANA [id number]) Nutrition Malnutrition Evidence of Malnutrition Exists Yes Malnutrition (severe): Acute Illness/Injury Evidenced By Suboptimal Energy Intake ( Severe),Weight Loss (Severe), Physical Changes (Mild) Clinical Problem Acute Disease or Injury Related Malnutrition Etiology SUSPECTED r/t pt being sick and likely not consuming adequate energy and 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 Signs/Symptoms as evidenced by predicted po intake <50% of est nutritional needs x > 2 wk and Status Active Problem Altered Nutrient-Related Laboratory Values Etiology related to uncontrolled diabetes Signs/Symptoms as evidenced by A1c = 12.4 and gluc 408 today Status Active Problem Recommendation Dietitian Recommendations/Changes Rec Cardiac 1800 aaron CHO Control diet when able to resume po diet Will order 4 oz glucerna shake tid w/ medpass for increased nutrition if consumed.d/t suspected malnutrition Lab / Micro Data 03/29/23 09:10 03/29/23 09:10 Labs: Laboratory Results - last 24 hr 03/28/23 04:53: Diff Path Review Reviewed 03/28/23 11:39: POC Glucose 150 H 03/28/23 16:45: POC Glucose 129 H 03/28/23 21:31: POC Glucose 160 H 03/29/23 03:12: POC Glucose 173 H 03/29/23 06:21: POC Glucose 176 H 03/29/23 09:10: WBC 29.4 H, RBC 2.61 L, Hgb 9.2 L, Hct 28.0 L, MCV 107.3 H, MCH 35.2 H, MCHC 32.9, RDW Std Deviation 61.5 H, RDW Coeff of Merry 15.8 H, Plt Count 100 L, MPV 12.8 H, Neut % (Auto) Not Reportable, Sodium 157 H, Potassium 3.3 L, Chloride 126 H, Carbon Dioxide 26.0, Anion Gap 5, BUN 69 H, Creatinine 3.50 H, Estim Creat Clear Calc 14.10, Est GFR (MDRD) Af Amer 22 L, Est GFR (MDRD) Non-Af 18 L, BUN/Creatinine Ratio 19.7, Glucose 158 H, Calcium 9.2, Phosphorus 3.4, Magnesium 2.0 Micro: Microbiology 03/22/23 20:57 Blood Culture (Wb) - Anticubital Right Blood Culture - Final No growth in 5 days. 03/22/23 22:22 Blood Culture (Wb) - Right Forearm Blood Culture - Final No growth in 5 days. 03/23/23 05:25 Sputum, Expectorated/Coughed Gram Stain - Final 03/23/23 05:25 Sputum, Expectorated/Coughed Respiratory Culture - Final Enterobacter cloacae complex 03/22/23 16:40 Urine, Clean Catch Urine Culture - Final Culture exhibits no growth. 03/22/23 16:40 Urine, Clean Catch Legionella Antigen - Final 03/22/23 16:40 Urine, Clean Catch Streptococcus pneumoniae Antigen (M - Ana l 03/22/23 20:50 Mucosa - Nasopharyngeal Coronavirus COVID-19 PCR - Final 03/22/23 20:50 Mucosa - Nasopharyngeal Respiratory Panel (PCR) - Final 03/22/23 16:59 Nasal Secretion SARS-CoV-2 & FLU Antigen (Rapid) - Final Physical Exam Const Constitutional Narrative: sleeping. did not awake to verbal stimuli. HEENT HEENT Narrative: thrush. Resp Resp Narrative: coarse breath sounds bilaterally. Cardio regular rate, regular rhythm, S1 normal heart sound and S2 normal heart sound GI normal to inspection, nondistended, normoactive bowel sounds, soft to palpation, non-tender and non-distended Extremity normal to inspection Assessment & Plan Assessment/Plan (1) Pleural effusion, right: PLAN: Unclear type, though favor exudative. Loculated. On broad spectrum abx with pip/tazo. Thoracentesis attempted on the , but was unable to be safely performed due to confusion. Given relatively small size would hold on repeating as high risk of complication from agitation. (2) DKA (diabetic ketoacidoses): QUALIFIERS: Diabetes mellitus complication detail: without coma Diabetes mellitus type: type 2 Qualified Code(s): E11.10 - Type 2 diabetes mellitus with ketoacidosis without coma PLAN: POA. Was on insulin gtt, but since transitioned off. history of type 2 diabetes Initiated on insulin drip on admission and admitted to the ICU. Hemoglobin A1c of 12.4%. Glargine 20 BID. Continue SSI. (3) Metabolic encephalopathy: PLAN: Acute metabolic encephalopathy, improving Suspected secondary to acute infection as above with known underlying blindness and difficulty hearing. Unclear if patient has underlying dementia as well. Waxes and wanes, but overall confused. Complicated by profound presbycusis. (4) Atrial fibrillation: PLAN: New onset atrial fibrillation Echo shows an EF of 55%. DC heparin gtt. Start apixaban 2.5 BID. Follows with cardiology outpatient, can continue outpatient follow-up for now. Suspect new onset A-fib is primarily secondary to acute infection. Monitor t elemetry. 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 Creatinine now up 3.32 FENa 1.18%. Renal ultrasound negative. PVR DC vancomycin (last received 03/24). IVF. Ongoing. Nephrology following. (6) Debility: PLAN: PT/OT/case management following. Lives at home with his . PLAN: Plan Chronic conditions: * Chronic hypoxic respiratory failure on home 3 L nasal cannula? Secondary to previous COVID infection. Chest x-ray on admit showed interstitial fibrosis that was stable, as well as acute loculated effusion as noted above. Continue supplemental oxygen, wean as able. Treat pneumonia as noted above. Continue home inhalers. * Hypertension: Holding home losartan and Coreg for now, restart as able. * Hard of hearing: Ensure patient has hearing aids in as much as able. * Blindness: Per history. Complicates treatment. DVT prophylaxis: not indicated as on apixaban. CODE STATUS: Full code, verified Disposition: TBD. Overall, pt has failed to progress and appears to be worsening. I called his , Rosa Sommers, to discuss goals of care, but no answer. Prognosis is guarded. Charges/Coding Visit Charges Inpatient E&M: 53925 Subs Hosp L2
[2023-03-29] MEDS: 0.45% Normal Saline 1,000 ML 125 ML IV ×2 (11:12→20:31)
[2023-03-29] MEDS: 0.9% Saline Lock 10 ML Syringe IV ×2 (11:12→22:57)
[2023-03-29 11:13] LABS: Eosinophil 1 % (0-5); Lymphocyte 8 % (19-41); Metamyelocyte 2 % (0-1); Monocyte 11 % (0-10); Myelocyte 2 % (0-0); Neutrophil-Band 9 % (0-5); Neutrophil-Segmented 67 % (47-70); Platelet Estimate ADEQUATE (ADEQ); Red Cell Morphology NORM C+C NORMAL (NORM C&C); Total Cells Counted 100 (MANUAL DIFF)
[2023-03-29 11:14] LABS: Absolute Lymphocyte Count 2.35 X10^3/uL (0.83-4.51); Absolute Neutrophil Count 22.3 X10^3/uL (2.0-7.7)
[2023-03-29 11:33] VITALS: BP 134/69; PULSE 94; RESP 18; TEMP 37.1; O2SAT 96
[2023-03-29 12:03] LABS: Bedside Glucose 129 mg/dL (74-106)
[2023-03-29] MEDS: Acetaminophen 325 MG Tablet 650 MG PO ×2 (14:17→23:01)
[2023-03-29 14:27] VITALS: BP 147/96; PULSE 79; RESP 18; TEMP 36.8; O2SAT 95
[2023-03-29 16:40] LABS: Bedside Glucose 169 mg/dL (74-106)
[2023-03-29] MEDS: NYSTATIN 500,000 UNIT/5 ML UDC 500000 UNIT PO ×2 (17:24→23:10)
[2023-03-29 22:00] VITALS: PULSE 76; RESP 20; O2SAT 97
[2023-03-29 23:03] LABS: Bedside Glucose 199 mg/dL (74-106)
[2023-03-29 23:13] VITALS: BP 128/71; PULSE 74; RESP 20; TEMP 36.8; O2SAT 97
[2023-03-30] VITALS (13 sets, daily range): BP systolic 128–152; BP diastolic 71–96; PULSE 74–99; RESP 14–20; TEMP 36.3–36.8; O2SAT 90–99; BMI 27.5
[2023-03-30 03:44] LABS: Bedside Glucose 145 mg/dL (74-106)
[2023-03-30 06:06] LABS: Hematocrit 27.5 % (40-54); Hemoglobin 8.8 g/dL (13.0-16.5); Mean Corpuscular Hgb 34.4 pg (27.0-32.0); Mean Corpuscular Volume 107.4 fL (80-94); Mean Platelet Vol. 12.8 fl (6.2-12.0); POSITIVE COUNT YES; POSITIVE DIFFERENTIAL YES; POSITIVE MORPHOLOGY YES; Platelet Count 105 K/mm3 (150-450); RBC Distribution Width CV 15.9 % (11.6-14.6); RBC Distribution Width SD 63.5 fl (35.1-43.9); Red Blood Count 2.56 M/mm3 (4.6-6.2); White Blood Count 28.5 K/mm3 (4.4-11.0)
[2023-03-30] MEDS: Menthol/Lanolin/Calamine/Znox 113 GM Tube 1 APPLIC TOPICAL (06:10)
[2023-03-30] MEDS: Insulin Lispro 100 UNIT/ML INSULN.PEN SC ×2 (06:10→22:22)
[2023-03-30 06:27] LABS: Differential Indicated MANUAL DIFF
[2023-03-30 06:29] LABS: Bedside Glucose 164 mg/dL (74-106)
[2023-03-30 06:48] LABS: Anion Gap 7 (5-15); BUN 64 mg/dL (7-18); BUN/Creat Ratio 18.4 RATIO (10-20); Chloride 126 mmol/L (98-107); Creatinine, Serum 3.47 mg/dL (0.70-1.30); EST Glomerular Filtration Rate 18 mL/min (>60); Est Glom Filt Rate - Afr Amer 22 mL/min (>60); Estimated Creatinine Clearance 14.22 ml/min; Glucose 141 mg/dL (74-106); Potassium 3.4 mmol/L (3.5-5.1); Sodium Level 156 mmol/L (136-145)
[2023-03-30 06:57] LABS: Lymphocyte 4 % (19-41); Metamyelocyte 2 % (0-1); Monocyte 22 % (0-10); Myelocyte 5 % (0-0); Neutrophil-Band 19 % (0-5); Neutrophil-Segmented 48 % (47-70); Total Cells Counted 100 (MANUAL DIFF)
[2023-03-30 06:58] LABS: Anisocytosis 2+; Hypochromasia 1+; Macrocytosis 2+; Neutrophil # 19.12 X10^3/uL (2.7-7.7); Platelet Estimate SLT DEC (ADEQ)
[2023-03-30 06:59] LABS: Absolute Lymphocyte Count 1.14 X10^3/uL (0.83-4.51); Absolute Neutrophil Count 19.1 X10^3/uL (2.0-7.7); Lymphocyte # 1.14 X10^3/ul (0.83-4.51)
[2023-03-30] MEDS: Insulin Glargine-YFGN 100 UNIT/ML Pen 20 UNIT SC ×2 (08:13→22:23)
[2023-03-30] MEDS: NYSTATIN 500,000 UNIT/5 ML UDC 500000 UNIT PO ×4 (08:14→22:17)
[2023-03-30] MEDS: APIXABAN 2.5 MG TABLET (WCH) PO ×2 (08:14→22:18)
[2023-03-30] MEDS: Pantoprazole Sodium 40 MG Tablet PO (08:14)
--- NOTE | 2023-03-30 08:20 | PN.HOSP_ITS ---
Reason for Visit Reason for Visit: Diagnoses Type 2 diabetes mellitus with ketoacidosis without coma (03/22/23) Metabolic encephalopathy (03/22/23) Unspecified atrial fibrillation (03/22/23) Pleural effusion, not elsewhere classified (03/22/23) Acute kidney failure, unspecified (03/22/23) Chronic kidney disease, stage 2 (mild) (03/22/23) Other malaise (03/22/23) Subjective Subjective No events overnight Objective Data Objective Data Vital Signs: Vital Signs Temp Pulse Resp BP Pulse Ox O2 Del Method O2 Flow Rate 36.7 C 99 18 141/90 H 97 Nasal Cannula 2 03/30/23 08:18 03/30/23 08:18 03/30/23 08:18 03/30/23 08:18 03/30/23 08:18 03/30/23 08:18 03/30/23 08:18 Oxygen Flow Rate (L/min) 2 Oxygen Delivery Method Nasal Cannula Weight: 72.8 kg Body Mass Index (BMI) 27.5 Intake & Output: Intake and Output for Last 24 Hours 03/28/23 03/29/23 03/30/23 23:59 23:59 23:59 Intake Total 1770 / 1770 1320.00 / 1680.00 710 / 710 Output Total 1750 / 2250 1150 / 1950 1100 / 1100 Balance 20 / -480 170.00 / -270.00 -390 / -390 Medical Nutrition Assessment Dietitian: Malnutrition Criteria Met Start: 03/23/23 10:09 Freq: Status: Active Protocol: Document 03/29/23 14:01 (Rec: 03/29/23 14:01 Desktop) Nutrition Malnutrition Evidence of Malnutrition Exists Yes Malnutrition (severe): Acute Illness/Injury Evidenced By Suboptimal Energy Intake ( Severe),Weight Loss (Severe) Clinical Problem Biting/Chewing Difficulty Etiology related to debility Signs/Symptoms as evidenced by need for pureed diet Status Active Problem Acute Disease or Injury Related Malnutrition Etiology severe acute on likely chronic malnutrition related to inadequate energy intake Signs/Symptoms as evidenced by PO intake meeting <50% of estimated energy needs, unintentional 2% wt loss < 1 week Status Active Problem Altered Nutrient-Related Laboratory Values Etiology related to CHRIST on CKD stage III, dehydration Signs/Symptoms as evidenced by BUN 69, creatinine 3.50, sodium 157 Status Inactive Problem Recommendation Dietitian Recommendations/Changes will adjust diet to regular given evidence of malnutrition , texture/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; will continue glucerna and magic cup w/meals Lab / Micro Data 03/30/23 05:53 03/30/23 05:53 Labs: Laboratory Results - last 24 hr 03/28/23 04:53: Diff Path Review Reviewed 03/29/23 09:10: WBC 29.4 H, RBC 2.61 L, Hgb 9.2 L, Hct 28.0 L, MCV 107.3 H, MCH 35.2 H, MCHC 32.9, RDW Std Deviation 61.5 H, RDW Coeff of Merry 15.8 H, Plt Count 100 L, MPV 12.8 H, Neut % (Auto) Not Reportable, Absolute Neuts (auto) 22.3 H, Absolute Lymphs (auto) 2.35, Total Counted 100, Neutrophils % (Manual) 67, Band Neutrophils % 9 H, Lymphocytes % (Manual) 8 L, Monocytes % (Manual) 11 H, Eosinophils % (Manual) 1, Metamyelocytes % 2 H, Myelocytes % 2 H, Diff Path Review May foll, Platelet Estimate ADEQUATE, RBC Morphology NORM C+C, Sodium 157 H, Potassium 3.3 L, Chloride 126 H, Carbon Dioxide 26.0, Anion Gap 5, BUN 69 H, Creatinine 3.50 H, Estim Creat Clear Calc 14.10, Est GFR (MDRD) Af Amer 22 L, Est GFR (MDRD) Non-Af 18 L, BUN/Creatinine Ratio 19.7, Glucose 158 H, Calcium 9.2, Phosphorus 3.4, Magnesium 2.0 03/29/23 11:07: POC Glucose 129 H 03/29/23 15:45: POC Glucose 169 H 03/29/23 22:45: POC Glucose 199 H 03/30/23 03:02: POC Glucose 145 H 03/30/23 05:53: WBC 28.5 H, RBC 2.56 L, Hgb 8.8 L, Hct 27.5 L, MCV 107.4 H, MCH 34.4 H, MCHC 32.0, RDW Std Deviation 63.5 H, RDW Coeff of Merry 15.9 H, Plt Count 105 L, MPV 12.8 H, Neut % (Auto) Not Reportable, Absolute Neuts (auto) 19.1 H, Absolute Lymphs (auto) 1.14, Total Counted 100, Neutrophils % (Manual) 48, Band Neutrophils % 19 H, Lymphocytes % (Manual) 4 L, Monocytes % (Manual) 22 H, Metamyelocytes % 2 H, Myelocytes % 5 H, Diff Path Review May , Platelet Estimate SLT DEC, Hypochromasia 1+, Anisocytosis 2+, Macrocytosis 2+, Sodium 156 H, Potassium 3.4 L, Chloride 126 H, Carbon Dioxide 23.0, Anion Gap 7, BUN 64 H, Creatinine 3.47 H, Estim Creat Clear Calc 14.22, Est GFR (MDRD) Af Amer 22 L, Est GFR (MDRD) Non-Af 18 L, BUN/Creatinine Ratio 18.4, Glucose 141 H, Calcium 9.0 03/30/23 06:08: POC Glucose 164 H Micro: Microbiology 03/22/23 20:57 Blood Culture (Wb) - Anticubital Right Blood Culture - Final No growth in 5 days. 03/22/23 22:22 Blood Culture (Wb) - Right Forearm Blood Culture - Final No growth in 5 days. 03/23/23 05:25 Sputum, Expectorated/Coughed Gram Stain - Final 03/23/23 05:25 Sputum, Expectorated/Coughed Respiratory Culture - Final Enterobacter cloacae complex 03/22/23 16:40 Urine, Clean Catch Urine Culture - Final Culture exhibits no growth. 03/22/23 16:40 Urine, Clean Catch Legionella Antigen - Final 03/22/23 16:40 Urine, Clean Catch Streptococcus pneumoniae Antigen (M - Final 03/22/23 20:50 Mucosa - Nasopharyngeal Coronavirus COVID-19 PCR - Final 03/22/23 20:50 Mucosa - Nasopharyngeal Respiratory Panel (PCR) - Final 03/22/23 16:59 Nasal Secretion SARS-CoV-2 & FLU Antigen (Rapid) - Final Physical Exam Const alert and no apparent distress HEENT head/scalp atraumatic and moist oral mucous membranes Resp Resp Narrative: Coarse breath sounds bilaterally Cardio regular rate, regular rhythm, S1 normal heart sound and S2 normal heart sound GI normal to inspection, nondistended, normoactive bowel sounds, soft to palpation, non-tender and non-distended Extremity normal to inspection Neuro Sensorium / Orientation: awake and alert Assessment & Plan Assessment/Plan (1) Pleural effusion, right: PLAN: Unclear type, though favor exudative. Loculated. On broad spectrum abx with pip/tazo. Thoracentesis attempted on the , but was unable to be safely performed due to confusion. Given relatively small size would hold on repeating as high risk of complication from agitation. (2) DKA (diabetic ketoacidoses): QUALIFIERS: Diabetes mellitus complication detail: without coma Diabetes mellitus type: type 2 Qualified Code(s): E11.10 - Type 2 diabetes mellitus with ketoacidosis without coma PLAN: POA. Was on insulin gtt, but since transitioned off. history of type 2 diabetes Initiated on insulin drip on admission and admitted to the ICU. Hemoglobin A1c of 12.4%. Glargine 20 BID. Continue SSI. (3) Metabolic encephalopathy: PLAN: Acute metabolic encephalopathy, improving Suspected secondary to acute infection as above with known underlying blindness and difficulty hearing. Unclear if patient has underlying dementia as well. Waxes and wanes, but overall confused. Complicated by profound presbycusis. (4) Atrial fibrillation: PLAN: New onset atrial fibrillation Echo shows an EF of 55%. DC heparin gtt. Start apixaban 2.5 BID. Follows with cardiology outpatient, can continue outpatient follow-up for now. Suspect new onset A-fib is primarily secondary to acute infection. Monitor telemetry. 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 Leveling off. FENa 1.18%. Renal ultrasound negative. PVR IVF. Nephrology following. (6) Debility: PLAN: PT/OT/case management following. Lives at home with his . (7) Hypernatremia: PLAN: Ongoing, though slightly improved today Continue 0.45% NS. PLAN: Plan Chronic conditions: * Chronic hypoxic respiratory failure on home 3 L nasal cannula? Secondary to previous COVID infection. Chest x-ray on admit showed interstitial fibrosis that was stable, as well as acute loculated effusion as noted above. Continue supplemental oxygen, wean as able. Treat pneumonia as noted above. Continue home inhalers. * Hypertension: Holding home losartan and Coreg for now, restart as able. * Hard of hearing: Ensure patient has hearing aids in as much as able. * Blindness: Per history. Complicates treatment. DVT prophylaxis: not indicated as on apixaban. CODE STATUS: Full code Disposition: TBD. Called the patient's , Rosa Sommers, again today. No answer on the provided number. No additional contact information is available and or other contacts. Charges/Coding Visit Charges Inpatient E&M: 59618 Subs Hosp L2
--- NOTE | 2023-03-30 09:23 | PN.CC_ITS ---
Assessment & Plan Assessment/Plan (1) DKA (diabetic ketoacidoses): QUALIFIERS: Diabetes mellitus type: type 2 Diabetes mellitus complication detail: without coma Qualified Code(s): E11.10 - Type 2 diabetes mellitus with ketoacidosis without coma (2) Pleural effusion, right: PLAN: Plan RECOMMENDATIONS: 1. Continue basal and sliding scale insulin coverage. Continue Accu-Cheks as ordered. 2. Consider transition to high-dose Levaquin versus ID consult 3. Wean supplemental oxygen to maintain saturations at or above 90%. 4. Encourage incentive spirometer use and mobilize patient as tolerated. 5. Continue scheduled budesonide aerosols and as needed albuterol. 6. Patient hemodynamically stable on minimal nasal cannula for several days. Will sign off from a pulmonary perspective IMPRESSIONS: 1. Diabetic ketoacidosis Resolved at this time. Anion gap has been closed. The patient has been initiated on basal and sliding scale insulin coverage, which will be continued. The patient will require diabetic education, given that he has a hemoglobin A1c of greater than 12. Blood sugars are marginally controlled, but there is no signs of DKA. Blood sugars are somewhat better after increase in basal insulin. Blood sugars will be difficult to control given problem #3. 2. Acute on chronic kidney disease Most likely prerenal in etiology in the setting of #1. Continue to monitor urine output. Patient is slowly increasing in creatinine and BUN. Patient may have an element of osmotic diuresis secondary to elevated blood sugars. No current indication for renal replacement therapy. Appreciate renal recommendations 3. Loculated right-sided pleural effusion/history of asthma/chronic hypoxemic respiratory failure The patient has a loculated right-sided pleural effusion on CT imaging of the chest, which could be related to underlying cardiac etiologies and/or a parapneumonic effusion. The patient has already been initiated on broad- spectrum antimicrobials. Unfortunately, the patient was unable to tolerate an attempted an ultrasound-guided thoracentesis on March 23. Echocardiogram revealed normal ejection fraction. Plan to continue current supportive measures and aerosol treatments as ordered. Patient has had some improvement in leukocytosis. Could consider transition to Levaquin 750 mg p.o. daily versus an ID consult as patient may require protracted antibiotics (4 to 6 weeks). Previous PFT in 2018 did not show any obstructive lung disease, so steroids would likely not be indicated. 4. Troponin elevation Most likely secondary to demand ischemia. Echocardiogram was unrevealing. Patient could have an outpatient work-up, but likely not necessary to have an inpatient work-up. This note was generated with [employer] dictation software. It may contain incorrect words, spelling, and punctuation that were not noted in checking the note before signing. Subjective Subjective Patient did well overnight. Patient continues to report some back discomfort, but does not believe is changed in intensity or character. Patient is much more interactive today. Objective Data Objective Data Vital Signs: Vital Signs Temp Pulse Resp BP Pulse Ox O2 Del Method O2 Flow Rate 36.7 C 99 18 141/90 H 97 Nasal Cannula 2 03/30/23 08:18 03/30/23 08:18 03/30/23 08:18 03/30/23 08:18 03/30/23 08:18 03/30/23 08:18 03/30/23 08:18 Oxygen Flow Rate (L/min) 2 Oxygen Delivery Method Nasal Cannula Weight: 72.8 kg Body Mass Index (BMI) 27.5 Intake & Output: Intake and Output for Last 24 Hours 03/28/23 03/29/23 03/30/23 23:59 23:59 23:59 Intake Total 1770 / 1770 1320.00 / 1680.00 710 / 710 Output Total 1750 / 2250 1150 / 1950 1100 / 1100 Balance 20 / -480 170.00 / -270.00 -390 / -390 Medical Nutrition Assessment Dietitian: Malnutrition Criteria Met Start: 03/23/23 10:09 Freq: Status: Active Protocol: Document 03/29/23 14:01 (Rec: 03/29/23 14:01 Desktop) Nutrition Malnutrition Evidence of Malnutrition Exists Yes Malnutrition (severe): Acute Illness/Injury Evidenced By Suboptimal Energy Intake ( Severe),Weight Loss (Severe) Clinical Problem Biting/Chewing Difficulty Etiology related to debility Signs/Symptoms as evidenced by need for pureed diet Status Active Problem Acute Disease or Injury Related Malnutrition Etiology severe acute on likely chronic malnutrition related to inadequate energy intake Signs/Symptoms as evidenced by PO intake meeting <50% of estimated energy needs, unintentional 2% wt loss < 1 week Status Active Problem Altered Nutrient-Related Laboratory Values Etiology related to CHRIST on CKD stage III, dehydration Signs/Symptoms as evidenced by BUN 69, creatinine 3.50, sodium 157 Status Inactive Problem Recommendation Dietitian Recommendations/Changes will adjust diet to regular given evidence of malnutrition , texture/consistency per TOLL OPERATOR; will continue glucerna and magic cup w/meals Lab / Micro Data 03/30/23 05:53 03/30/23 05:53 Labs: Laboratory Results - last 24 hr 03/28/23 04:53: Diff Path Review Reviewed 03/29/23 09:10: WBC 29.4 H, RBC 2.61 L, Hgb 9.2 L, Hct 28.0 L, MCV 107.3 H, MCH 35.2 H, MCHC 32.9, RDW Std Deviation 61.5 H, RDW Coeff of Merry 15.8 H, Plt Count 100 L, MPV 12.8 H, Neut % (Auto) Not Reportable, Absolute Neuts (auto) 22.3 H, Absolute Lymphs (auto) 2.35, Total Counted 100, Neutrophils % (Manual) 67, Band Neutrophils % 9 H, Lymphocytes % (Manual) 8 L, Monocytes % (Manual) 11 H, Eosinophils % (Manual) 1, Metamyelocytes % 2 H, Myelocytes % 2 H, Diff Path Review May foll, Platelet Estimate ADEQUATE, RBC Morphology NORM C+C, Sodium 157 H, Potassium 3.3 L, Chloride 126 H, Carbon Dioxide 26.0, Anion Gap 5, BUN 69 H, Creatinine 3.50 H, Estim Creat Clear Calc 14.10, Est GFR (MDRD) Af Amer 22 L, Est GFR (MDRD) Non-Af 18 L, BUN/Creatinine Ratio 19.7, Glucose 158 H, Calcium 9.2, Phosphorus 3.4, Magnesium 2.0 03/29/23 11:07: POC Glucose 129 H 03/29/23 15:45: POC Glucose 169 H 03/29/23 22:45: POC Glucose 199 H 03/30/23 03:02: POC Glucose 145 H 03/30/23 05:53: WBC 28.5 H, RBC 2.56 L, Hgb 8.8 L, Hct 27.5 L, MCV 107.4 H, MCH 34.4 H, MCHC 32.0, RDW Std Deviation 63.5 H, RDW Coeff of Merry 15.9 H, Plt Count 105 L, MPV 12.8 H, Neut % (Auto) Not Reportable, Absolute Neuts (auto) 19.1 H, Absolute Lymphs (auto) 1.14, Total Counted 100, Neutrophils % (Manual) 48, Band Neutrophils % 19 H, Lymphocytes % (Manual) 4 L, Monocytes % (Manual) 22 H, Metamyelocytes % 2 H, Myelocytes % 5 H, Diff Path Review May foll, Platelet Estimate SLT DEC, Hypochromasia 1+, Anisocytosis 2+, Macrocytosis 2+, Sodium 156 H, Potassium 3.4 L, Chloride 126 H, Carbon Dioxide 23.0, Anion Gap 7, BUN 64 H, Creatinine 3.47 H, Estim Creat Clear Calc 14.22, Est GFR (MDRD) Af Amer 22 L, Est GFR (MDRD) Non-Af 18 L, BUN/Creatinine Ratio 18.4, Glucose 141 H, Calcium 9.0 03/30/23 06:08: POC Glucose 164 H Micro: Microbiology 03/22/23 20:57 Blood Culture (Wb) - Anticubital Right Blood Culture - Final No growth in 5 days. 03/22/23 22:22 Blood Culture (Wb) - Right Forearm Blood Culture - Final No growth in 5 days. 03/23/23 05:25 Sputum, Expectorated/Coughed Gram Stain - Final 03/23/23 05:25 Sputum, Expectorated/Coughed Respiratory Culture - Final Enterobacter cloacae complex 03/22/23 16:40 Urine, Clean Catch Urine Culture - Final Culture exhibits no growth. 03/22/23 16:40 Urine, Clean Catch Legionella Antigen - Final 03/22/23 16:40 Urine, Clean Catch Streptococcus pneumoniae Antigen (M - Final 03/22/23 20:50 Mucosa - Nasopharyngeal Coronavirus COVID-19 PCR - Final 03/22/23 20:50 Mucosa - Nasopharyngeal Respiratory Panel (PCR) - Final 03/22/23 16:59 Nasal Secretion SARS-CoV-2 & FLU Antigen (Rapid) - Final Physical Exam Const alert and no apparent distress Constitutional Narrative: Following commands appropriately. Appears to be less confused today. General Appearance: cooperative HEENT normocephalic and head/scalp atraumatic Eyes PERRL, EOMs intact bilaterally and conjunctivae normal Neck supple General: trachea midline Chest inspection of chest normal Resp normal respiratory effort Effort and Inspection: tachypneic; Negative for actively coughing Auscultation: diminished lung sounds; Negative for rales, rhonchi or wheezes Cardio regular rate and regular rhythm Rate: tachycardic Rhythm: abnormal rhythm irregularly irregular GI normal to inspection, nondistended, normoactive bowel sounds Extremity no clubbing, cyanosis or edema Skin no rashes or lesions noted Neuro CN's II-XII intact bilaterally, moves all extremities and no focal motor deficits Psych cooperative and affect normal Activity / Motor Behavior: restless Mood & Affect: flat affect Charges/Coding Visit Charges Inpatient E&M: 32496 Subs Hosp L2
[2023-03-30 09:57] LABS: Pathologist Review Reviewed
[2023-03-30] MEDS: Piperacil/Tazobactam 3.375 GM in 0.9% Normal Saline (50mL MB+) 50 ML IV ×2 (10:50→22:25)
[2023-03-30] MEDS: 0.45% Normal Saline 1,000 ML 125 ML IV ×2 (10:51→17:35)
--- NOTE | 2023-03-30 11:02 | PCM.PN.REN ---
Subjective Subjective No new events. Objective Data Objective Data Vital Signs: Vital Signs Temp Pulse Resp BP Pulse Ox O2 Del Method O2 Flow Rate 97.4 F L 88 18 130/96 H 97 Nasal Cannula 2 03/30/23 09:53 03/30/23 09:53 03/30/23 09:53 03/30/23 09:53 03/30/23 09:53 03/30/23 09:53 03/30/23 09:53 Oxygen Flow Rate (L/min) 2 Oxygen Delivery Method Nasal Cannula Weight: 72.8 kg Body Mass Index (BMI) 27.5 Intake & Output: Intake and Output for Last 24 Hours 03/28/23 03/29/23 03/30/23 23:59 23:59 23:59 Intake Total 1770 / 1770 1320.00 / 1680.00 1410 / 1410 Output Total 1750 / 2250 1150 / 1950 1100 / 1100 Balance 20 / -480 170.00 / -270.00 310 / 310 Medical Nutrition Assessment Dietitian: Malnutrition Criteria Met Start: 03/23/23 10:09 Freq: Status: Active Protocol: Document 03/29/23 14:01 (Rec: 03/29/23 14:01 Desktop) Nutrition Malnutrition Evidence of Malnutrition Exists Yes Malnutrition (severe): Acute Illness/Injury Evidenced By Suboptimal Energy Intake ( Severe),Weight Loss (Severe) Clinical Problem Biting/Chewing Difficulty Etiology related to debility Signs/Symptoms as evidenced by need for pureed diet Status Active Problem Acute Disease or Injury Related Malnutrition Etiology severe acute on likely chronic malnutrition related to inadequate energy intake Signs/Symptoms as evidenced by PO intake meeting <50% of estimated energy needs, unintentional 2% wt loss < 1 week Status Active Problem Altered Nutrient-Related Laboratory Values Etiology related to CHRIST on CKD stage III, dehydration Signs/Symptoms as evidenced by BUN 69, creatinine 3.50, sodium 157 Status Inactive Problem Recommendation Dietitian Recommendations/Changes will adjust diet to regular given evidence of malnutrition , texture/consistency per JOB COST ESTIMATOR; will continue glucerna and magic cup w/meals Lab / Micro Data 03/30/23 05:53 03/30/23 05:53 Labs: Laboratory Results - last 24 hr 03/29/23 09:10: Absolute Neuts (auto) 22.3 H, Absolute Lymphs (auto) 2.35, Total Counted 100, Neutrophils % (Manual) 67, Band Neutrophils % 9 H, Lymphocytes % (Manual) 8 L, Monocytes % (Manual) 11 H, Eosinophils % (Manual) 1, Metamyelocytes % 2 H, Myelocytes % 2 H, Diff Path Review Reviewed, Platelet Estimate ADEQUATE, RBC Morphology NORM C+C 03/29/23 11:07: POC Glucose 129 H 03/29/23 15:45: POC Glucose 169 H 03/29/23 22:45: POC Glucose 199 H 03/30/23 03:02: POC Glucose 145 H 03/30/23 05:53: WBC 28.5 H, RBC 2.56 L, Hgb 8.8 L, Hct 27.5 L, MCV 107.4 H, MCH 34.4 H, MCHC 32.0, RDW Std Deviation 63.5 H, RDW Coeff of Merry 15.9 H, Plt Count 105 L, MPV 12.8 H, Neut % (Auto) Not Reportable, Absolute Neuts (auto) 19.1 H, Absolute Lymphs (auto) 1.14, Total Counted 100, Neutrophils % (Manual) 48, Band Neutrophils % 19 H, Lymphocytes % (Manual) 4 L, Monocytes % (Manual) 22 H, Metamyelocytes % 2 H, Myelocytes % 5 H, Diff Path Review May foll, Platelet Estimate SLT DEC, Hypochromasia 1+, Anisocytosis 2+, Macrocytosis 2+, Sodium 156 H, Potassium 3.4 L, Chloride 126 H, Carbon Dioxide 23.0, Anion Gap 7, BUN 64 H, Creatinine 3.47 H, Estim Creat Clear Calc 14.22, Est GFR (MDRD) Af Amer 22 L, Est GFR (MDRD) Non-Af 18 L, BUN/Creatinine Ratio 18.4, Glucose 141 H, Calcium 9.0 03/30/23 06:08: POC Glucose 164 H Micro: Microbiology 03/22/23 20:57 Blood Culture (Wb) - Anticubital Right Blood Culture - Final No growth in 5 days. 03/22/23 22:22 Blood Culture (Wb) - Right Forearm Blood Culture - Final No growth in 5 days. 03/23/23 05:25 Sputum, Expectorated/Coughed Gram Stain - Final 03/23/23 05:25 Sputum, Expectorated/Coughed Respiratory Culture - Final Enterobacter cloacae complex 03/22/23 16:40 Urine, Clean Catch Urine Culture - Final Culture exhibits no growth. 03/22/23 16:40 Urine, Clean Catch Legionella Antigen - Final 03/22/23 16:40 Urine, Clean Catch Streptococcus pneumoniae Antigen (M - Final 03/22/23 20:50 Mucosa - Nasopharyngeal Coronavirus COVID-19 PCR - Final 03/22/23 20:50 Mucosa - Nasopharyngeal Respiratory Panel (PCR) - Final 03/22/23 16:59 Nasal Secretion SARS-CoV-2 & FLU Antigen (Rapid) - Final Physical Exam Narrative Alert to name, hard of hearing, no apparent distress S1, S2, rhythm irregular rate controlled Lung sounds clear anteriorly diminished breath sounds, no rales or rhonchi abdomen soft, nontender No pitting edema Assessment & Plan Assessment/Plan (1) CHRIST (acute kidney injury): (2) Chronic kidney disease: QUALIFIERS: Chronic kidney disease stage: stage 2 (mild) Qualified Code(s): N18.2 - Chronic kidney disease, stage 2 (mild) (3) DKA (diabetic ketoacidoses): QUALIFIERS: Diabetes mellitus type: type 2 Diabetes mellitus complication detail: without coma Qualified Code(s): E11.10 - Type 2 diabetes mellitus with ketoacidosis without coma (4) Atrial fibrillation: PLAN: Plan Nonoliguric CHRIST superimposed on CKD stage IIIa Likely related to other ongoing events, volume depletion. Creatinine is about the same as yesterday. Does not look overloaded. Urine output has been okay. Hypernatremia. Trying to avoid D5 water due to hyperglycemia. Continue half-normal saline for now.
[2023-03-30] MEDS: Acetaminophen 325 MG Tablet 650 MG PO (11:06)
[2023-03-30 12:03] LABS: Bedside Glucose 122 mg/dL (74-106)
[2023-03-30 13:35] LABS: Pathologist Review Reviewed
[2023-03-30 16:49] LABS: Bedside Glucose 147 mg/dL (74-106)
[2023-03-30] MEDS: Budesonide Respules 0.5 MG/2 ML AMPUL.NEB. INHALATION (20:04)
[2023-03-30 22:56] LABS: Bedside Glucose 213 mg/dL (74-106)
[2023-03-31] VITALS (7 sets, daily range): BP systolic 116–145; BP diastolic 71–95; PULSE 78–98; RESP 16–22; TEMP 36.1–36.6; O2SAT 92–97; BMI 27.5
[2023-03-31] MEDS: 0.45% Normal Saline 1,000 ML 125 ML IV ×3 (01:44→21:26)
[2023-03-31 03:26] LABS: Bedside Glucose 102 mg/dL (74-106)
[2023-03-31] MEDS: Menthol/Lanolin/Calamine/Znox 113 GM Tube 1 APPLIC TOPICAL ×3 (06:38→20:53)
[2023-03-31 07:01] LABS: Hematocrit 27.7 % (40-54); Hemoglobin 8.6 g/dL (13.0-16.5); Mean Corpuscular Hgb 33.7 pg (27.0-32.0); Mean Corpuscular Volume 108.6 fL (80-94); Mean Platelet Vol. 13.2 fl (6.2-12.0); POSITIVE COUNT YES; POSITIVE DIFFERENTIAL YES; POSITIVE MORPHOLOGY YES; Platelet Count 121 K/mm3 (150-450); RBC Distribution Width SD 64.4 fl (35.1-43.9); Red Blood Count 2.55 M/mm3 (4.6-6.2); White Blood Count 29.3 K/mm3 (4.4-11.0)
[2023-03-31 07:03] LABS: Differential Indicated MANUAL DIFF
[2023-03-31 07:05] LABS: Bedside Glucose 81 mg/dL (74-106)
[2023-03-31] MEDS: Budesonide Respules 0.5 MG/2 ML AMPUL.NEB. INHALATION ×2 (07:13→19:35)
[2023-03-31 07:35] LABS: Anion Gap 1 (5-15); BUN 58 mg/dL (7-18); Calcium,Total 8.8 mg/dL (8.5-10.1); Chloride 124 mmol/L (98-107); Creatinine, Serum 3.23 mg/dL (0.70-1.30); EST Glomerular Filtration Rate 20 mL/min (>60); Est Glom Filt Rate - Afr Amer 24 mL/min (>60); Estimated Creatinine Clearance 15.27 ml/min; Glucose 62 mg/dL (74-106); Potassium 3.1 mmol/L (3.5-5.1); Sodium Level 151 mmol/L (136-145)
--- NOTE | 2023-03-31 08:44 | PCM.PN.HOSP ---
Reason for Visit Reason for Visit: Diagnoses Type 2 diabetes mellitus with ketoacidosis without coma (03/22/23) Hyperosmolality and hypernatremia (03/22/23) Metabolic encephalopathy (03/22/23) Unspecified atrial fibrillation (03/22/23) Pleural effusion, not elsewhere classified (03/22/23) Acute kidney failure, unspecified (03/22/23) Chronic kidney disease, stage 2 (mild) (03/22/23) Other malaise (03/22/23) Subjective Subjective Denies SOB. Objective Data Objective Data Vital Signs: Vital Signs Temp Pulse Resp BP Pulse Ox O2 Del Method O2 Flow Rate 36.6 C 78 18 143/82 H 94 Nasal Cannula 2 03/31/23 03:35 03/31/23 07:14 03/31/23 07:14 03/31/23 03:35 03/31/23 07:14 03/31/23 08:15 03/31/23 08:15 Oxygen Flow Rate (L/min) 2 Oxygen Delivery Method Nasal Cannula Weight: 72.7 kg Body Mass Index (BMI) 27.5 Intake & Output: Intake and Output for Last 24 Hours 03/29/23 03/30/23 03/31/23 23:59 23:59 23:59 Intake Total 1320.00 / 1680.00 2771.67 / 2771.67 1330 / 1330 Output Total 1150 / 1950 3900 / 3900 700 / 700 Balance 170.00 / -270.00 -1128.33 / -1128.33 630 / 630 Medical Nutrition Assessment Dietitian: Malnutrition Criteria Met Start: 03/23/23 10:09 Freq: Status: Active Protocol: Document 03/29/23 14:01 (Rec: 03/29/23 14:01 Desktop) Nutrition Malnutrition Evidence of Malnutrition Exists Yes Malnutrition (severe): Acute Illness/Injury Evidenced By Suboptimal Energy Intake ( Severe),Weight Loss (Severe) Clinical Problem Biting/Chewing Difficulty Etiology related to debility Signs/Symptoms as evidenced by need for pureed diet Status Active Problem Acute Disease or Injury Related Malnutrition Etiology severe acute on likely chronic malnutrition related to inadequate energy intake Signs/Symptoms as evidenced by PO intake meeting <50% of estimated energy needs, unintentional 2% wt loss < 1 week Status Active Problem Altered Nutrient-Related Laboratory Values Etiology related to CHRIST on CKD stage III, dehydration Signs/Symptoms as evidenced by BUN 69, creatinine 3.50, sodium 157 Status Inactive Problem Recommendation Dietitian Recommendations/Changes will adjust diet to regular given evidence of malnutrition , texture/consistency per DEAN; will continue glucerna and magic cup w/meals Lab / Micro Data 03/31/23 05:56 03/31/23 05:56 Labs: Laboratory Results - last 24 hr 03/29/23 09:10: Diff Path Review Reviewed 03/30/23 05:53: Diff Path Review Reviewed 03/30/23 11:44: POC Glucose 122 H 03/30/23 16:31: POC Glucose 147 H 03/30/23 22:22: POC Glucose 213 H 03/31/23 03:06: POC Glucose 102 03/31/23 05:56: WBC 29.3 H, RBC 2.55 L, Hgb 8.6 L, Hct 27.7 L, MCV 108.6 H, MCH 33.7 H, MCHC 31.0 L, RDW Std Deviation 64.4 H, RDW Coeff of Merry 16.0 H, Plt Count 121 L, MPV 13.2 H, Neut % (Auto) Not Reportable, Sodium 151 H, Potassium 3.1 L, Chloride 124 H, Carbon Dioxide 26.0, Anion Gap 1 L, BUN 58 H, Creatinine 3.23 H, Estim Creat Clear Calc 15.27, Est GFR (MDRD) Af Amer 24 L, Est GFR (MDRD) Non-Af 20 L, BUN/Creatinine Ratio 18.0, Glucose 62 L, Calcium 8.8 03/31/23 06:41: POC Glucose 81 Micro: Microbiology 03/22/23 20:57 Blood Culture (Wb) - Anticubital Right Blood Culture - Final No growth in 5 days. 03/22/23 22:22 Blood Culture (Wb) - Right Forearm Blood Culture - Final No growth in 5 days. 03/23/23 05:25 Sputum, Expectorated/Coughed Gram Stain - Final 03/23/23 05:25 Sputum, Expectorated/Coughed Respiratory Culture - Final Enterobacter cloacae complex 03/22/23 16:40 Urine, Clean Catch Urine Culture - Final Culture exhibits no growth. 03/22/23 16:40 Urine, Clean Catch Legionella Antigen - Final 03/22/23 16:40 Urine, Clean Catch Streptococcus pneumoniae Antigen (M - Final 03/22/23 20:50 Mucosa - Nasopharyngeal Coronavirus COVID-19 PCR - Final 03/22/23 20:50 Mucosa - Nasopharyngeal Respiratory Panel (PCR) - Final 03/22/23 16:59 Nasal Secretion SARS-CoV-2 & FLU Antigen (Rapid) - Final Physical Exam Const alert and no apparent distress Resp normal respiratory effort, no retractions and no use of accessory muscles Cardio regular rate, regular rhythm, S1 normal heart sound and S2 normal heart sound GI normal to inspection, nondistended, normoactive bowel sounds, soft to palpation, non-tender and non-distended Extremity normal to inspection Assessment & Plan Assessment/Plan (1) Pleural effusion, right: PLAN: Unclear type, though favor exudative. Loculated. On broad spectrum abx with pip/tazo. Thoracentesis attempted on the , but was unable to be safely performed due to confusion. Given relatively small size would hold on repeating as high risk of complication from agitation. (2) DKA (diabetic ketoacidoses): QUALIFIERS: Diabetes mellitus complication detail: without coma Diabetes mellitus type: type 2 Qualified Code(s): E11.10 - Type 2 diabetes mellitus with ketoacidosis without coma PLAN: POA. Was on insulin gtt, but since transitioned off. history of type 2 diabetes Initiated on insulin drip on admission and admitted to the ICU. Hemoglobin A1c of 12.4%. Glargine 20 BID. Continue SSI. (3) Metabolic encephalopathy: PLAN: Acute metabolic encephalopathy, improving Suspected secondary to acute infection as above with known underlying blindness and difficulty hearing. Unclear if patient has underlying dementia as well. Waxes and wanes, but overall confused. Complicated by profound presbycusis. (4) Atrial fibrillation: PLAN: New onset atrial fibrillation Echo shows an EF of 55%. DC heparin gtt. Start apixaban 2.5 BID. Follows with cardiology outpatient, can continue outpatient follow-up for now. Suspect new onset A-fib is primarily secondary to acute infection. Monitor telemetry. 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 Leveling off. FENa 1.18%. Renal ultrasound negative. PVR IVF. Nephrology following. (6) Debility: PLAN: PT/OT/case management following. Lives at home with his . (7) Hypernatremia: PLAN: Ongoing, though slightly improved today Continue 0.45% NS. PLAN: Plan Chronic conditions: Chronic hypoxic respiratory failure on home 3 L nasal cannula? Secondary to previous COVID infection. Chest x-ray on admit showed interstitial fibrosis that was stable, as well as acute loculated effusion as noted above. Continue supplemental oxygen, wean as able. Treat pneumonia as noted above. Continue home inhalers. Hypertension: Holding home losartan and Coreg for now, restart as able. Hard of hearing: Ensure patient has hearing aids in as much as able. Blindness: Per history. Complicates treatment. DVT prophylaxis: not indicated as on apixaban. CODE STATUS: Full code Disposition: TBD. DW pt's 03/30 about his overall poor condition. Addressed advanced directives with her, she still wishes for him to be full code despite the unlikeliness of surviving CPA. Charges/Coding Visit Charges Inpatient E&M: 52685 Subs Hosp L2
--- NOTE | 2023-03-31 09:06 | PN.RENAL_ITS ---
Subjective Subjective Following for CHRIST on CKD. The patient is very hard of hearing, so history is limited. He denies chest pain. He does not appear to be in respiratory distress. Objective Data Objective Data Vital Signs: Vital Signs Temp Pulse Resp BP Pulse Ox O2 Del Method O2 Flow Rate 98 F 78 18 143/82 H 94 Nasal Cannula 2 03/31/23 03:35 03/31/23 07:14 03/31/23 07:14 03/31/23 03:35 03/31/23 07:14 03/31/23 08:15 03/31/23 08:15 Oxygen Flow Rate (L/min) 2 Oxygen Delivery Method Nasal Cannula Weight: 72.7 kg Body Mass Index (BMI) 27.5 Intake & Output: Intake and Output for Last 24 Hours 03/29/23 03/30/23 03/31/23 23:59 23:59 23:59 Intake Total 1320.00 / 1680.00 2771.67 / 2771.67 1330 / 1330 Output Total 1150 / 1950 3900 / 3900 700 / 700 Balance 170.00 / -270.00 -1128.33 / -1128.33 630 / 630 Medical Nutrition Assessment Dietitian: Malnutrition Criteria Met Start: 03/23/23 10:09 Freq: Status: Active Protocol: Document 03/29/23 14:01 (Rec: 03/29/23 14:01 Desktop) Nutrition Malnutrition Evidence of Malnutrition Exists Yes Malnutrition (severe): Acute Illness/Injury Evidenced By Suboptimal Energy Intake ( Severe),Weight Loss (Severe) Clinical Problem Biting/Chewing Difficulty Etiology related to debility Signs/Symptoms as evidenced by need for pureed diet Status Active Problem Acute Disease or Injury Related Malnutrition Etiology severe acute on likely chronic malnutrition related to inadequate energy intake Signs/Symptoms as evidenced by PO intake meeting <50% of estimated energy needs, unintentional 2% wt loss < 1 week Status Active Problem Altered Nutrient-Related Laboratory Values Etiology related to CHRIST on CKD stage III, dehydration Signs/Symptoms as evidenced by BUN 69, creatinine 3.50, sodium 157 Status Inactive Problem Recommendation Dietitian Recommendations/Changes will adjust diet to regular given evidence of malnutrition , texture/consistency per CLIENT DEVELOPMENT MANAGER; will continue glucerna and magic cup w/meals Lab / Micro Data 03/31/23 05:56 03/31/23 05:56 Labs: Laboratory Results - last 24 hr 03/29/23 09:10: Diff Path Review Reviewed 03/30/23 05:53: Diff Path Review Reviewed 03/30/23 11:44: POC Glucose 122 H 03/30/23 16:31: POC Glucose 147 H 03/30/23 22:22: POC Glucose 213 H 03/31/23 03:06: POC Glucose 102 03/31/23 05:56: WBC 29.3 H, RBC 2.55 L, Hgb 8.6 L, Hct 27.7 L, MCV 108.6 H, MCH 33.7 H, MCHC 31.0 L, RDW Std Deviation 64.4 H, RDW Coeff of Merry 16.0 H, Plt Count 121 L, MPV 13.2 H, Neut % (Auto) Not Reportable, Sodium 151 H, Potassium 3.1 L, Chloride 124 H, Carbon Dioxide 26.0, Anion Gap 1 L, BUN 58 H, Creatinine 3.23 H, Estim Creat Clear Calc 15.27, Est GFR (MDRD) Af Amer 24 L, Est GFR (MDRD) Non-Af 20 L, BUN/Creatinine Ratio 18.0, Glucose 62 L, Calcium 8.8 03/31/23 06:41: POC Glucose 81 Micro: Microbiology 03/22/23 20:57 Blood Culture (Wb) - Anticubital Right Blood Culture - Final No growth in 5 days. 03/22/23 22:22 Blood Culture (Wb) - Right Forearm Blood Culture - Final No growth in 5 days. 03/23/23 05:25 Sputum, Expectorated/Coughed Gram Stain - Final 03/23/23 05:25 Sputum, Expectorated/Coughed Respiratory Culture - Final Enterobacter cloacae complex 03/22/23 16:40 Urine, Clean Catch Urine Culture - Final Culture exhibits no growth. 03/22/23 16:40 Urine, Clean Catch Legionella Antigen - Final 03/22/23 16:40 Urine, Clean Catch Streptococcus pneumoniae Antigen (M - Final 03/22/23 20:50 Mucosa - Nasopharyngeal Coronavirus COVID-19 PCR - Final 03/22/23 20:50 Mucosa - Nasopharyngeal Respiratory Panel (PCR) - Final 03/22/23 16:59 Nasal Secretion SARS-CoV-2 & FLU Antigen (Rapid) - Final Physical Exam Narrative Alert to name, hard of hearing, no apparent distress S1, S2, rhythm irregular rate controlled Lung sounds clear anteriorly diminished breath sounds, no rales or rhonchi abdomen soft, nontender 1+ lower extremity edema Assessment & Plan Assessment/Plan (1) CHRIST (acute kidney injury): (2) Chronic kidney disease, stage 3b: (3) Hypernatremia: PLAN: Plan Impression/Plan: The patient is a 82-year-old man with past history of type 2 diabetes mellitus, hypertension, aortic stenosis status post SAVR, mitral valve insufficiency, pulmonary hypertension, and chronic kidney disease stage G3b. The patient presented to the hospital on 03/22/2023 with DKA and acute on chronic hypoxic respiratory failure with right pleural effusion. He is also developed new onset atrial fibrillation during this hospitalization. Nephrology is following for CHRIST on CKD. CHRIST on CKD stage G3b. Baseline serum creatinine appears to be around 1.7 to 1.8 mg/dL. 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 Serum creatinine was 2.67 mg/dL on admission (03/22/2023), improved to 1.9 mg/dL on 03/23, was on IVF and treating DKA. Serum creatinine increased to 2.0 mg/dL on 03/24 and had been slowly rising over the past few days. Serum creatinine increased to 3.50 mg/dL on 03/29/2023. Suspect CHRIST is secondary to ischemic ATN. Fortunately, serum creatinine has plateaued and slightly improved in the last 48 hours. Serum creatinine is down to 3.23 mg/dL today. The patient perhaps may be in the diuretic phase of ATN recovery. Urine output is adequate. In fact, urine output was 3.9 L in the last 24 hours without diuretic. There is no need for kidney replacement therapy. Continue current supportive care. Recheck renal function, volume status, electrolyte and acid-base again tomorrow. Hypernatremia Hypernatremia may be due to polyuria and limitation of oral intake. He is also a total feed which limits ability to get water on his own. Encourage staff to push oral water. Serum sodium is a bit better today at 151 mmol/L. If serum sodium continue to rise, I will start D5W.
[2023-03-31] MEDS: Piperacil/Tazobactam 3.375 GM in 0.9% Normal Saline (50mL MB+) 50 ML IV ×2 (10:47→20:52)
[2023-03-31] MEDS: Pantoprazole Sodium 40 MG Tablet PO (10:51)
[2023-03-31] MEDS: NYSTATIN 500,000 UNIT/5 ML UDC 500000 UNIT PO ×4 (10:51→20:53)
[2023-03-31] MEDS: APIXABAN 2.5 MG TABLET (WCH) PO ×2 (10:51→20:53)
[2023-03-31] MEDS: Insulin Glargine-YFGN 100 UNIT/ML Pen 20 UNIT SC ×2 (11:09→20:54)
[2023-03-31 11:19] LABS: Bedside Glucose 102 mg/dL (74-106)
[2023-03-31 11:48] LABS: Lymphocyte 7 % (19-41); Metamyelocyte 2 % (0-1); Monocyte 18 % (0-10); Myelocyte 11 % (0-0); Neutrophil-Band 9 % (0-5); Neutrophil-Segmented 53 % (47-70); Nucleated Red Bld Cells,Manual 1 % (0-5); Platelet Estimate ADEQUATE (ADEQ); Red Cell Morphology NORM C+C NORMAL (NORM C&C); Total Cells Counted 100 (MANUAL DIFF)
[2023-03-31 11:49] LABS: Absolute Neutrophil Count 18.2 X10^3/uL (2.0-7.7)
[2023-03-31 11:50] LABS: Absolute Lymphocyte Count 2.05 X10^3/uL (0.83-4.51)
[2023-03-31] MEDS: Potassium Chloride Oral Tablet 20 MEQ 40 MEQ PO (15:21)
--- NOTE | 2023-03-31 16:54 | CASEMGMT ---
Social Work It is this SW's understanding physician spoke w/, they are not interested in hospice at this time. SW called , message left to follow up w/SW Arianne on Sunday, SNF placement likely needed. RAH Islas
[2023-03-31 17:26] LABS: Bedside Glucose 75 mg/dL (74-106)
[2023-03-31 21:28] LABS: Bedside Glucose 110 mg/dL (74-106)
[2023-04-01] VITALS (11 sets, daily range): BP systolic 110–154; BP diastolic 78–94; PULSE 85–102; RESP 18–28; TEMP 36.3–36.8; O2SAT 85–98; BMI 28.4
[2023-04-01 03:23] LABS: Bedside Glucose 94 mg/dL (74-106)
[2023-04-01] MEDS: 0.45% Normal Saline 1,000 ML 125 ML IV ×3 (04:43→22:27)
[2023-04-01] MEDS: Dextrose 50%-Water 25 GM/50 ML DISP.SYRIN IV (06:34)
[2023-04-01] MEDS: Menthol/Lanolin/Calamine/Znox 113 GM Tube 1 APPLIC TOPICAL ×3 (06:38→21:47)
[2023-04-01 06:48] LABS: Hematocrit 29.3 % (40-54); Hemoglobin 9.2 g/dL (13.0-16.5); Mean Corp Hgb Conc 31.4 g/dL (32-36); Mean Corpuscular Hgb 34.3 pg (27.0-32.0); Mean Corpuscular Volume 109.3 fL (80-94); Mean Platelet Vol. 13.2 fl (6.2-12.0); POSITIVE COUNT YES; POSITIVE DIFFERENTIAL YES; POSITIVE MORPHOLOGY YES; Platelet Count 132 K/mm3 (150-450); RBC Distribution Width CV 16.3 % (11.6-14.6); Red Blood Count 2.68 M/mm3 (4.6-6.2); White Blood Count 25.5 K/mm3 (4.4-11.0)
[2023-04-01 06:53] LABS: Differential Indicated MANUAL DIFF
[2023-04-01 07:05] LABS: Anion Gap 6 (5-15); BUN 52 mg/dL (7-18); BUN/Creat Ratio 16.9 RATIO (10-20); Calcium,Total 8.6 mg/dL (8.5-10.1); Chloride 122 mmol/L (98-107); Creatinine, Serum 3.08 mg/dL (0.70-1.30); EST Glomerular Filtration Rate 21 mL/min (>60); Est Glom Filt Rate - Afr Amer 25 mL/min (>60); Estimated Creatinine Clearance 16.02 ml/min; Glucose 59 mg/dL (74-106); Magnesium 1.9 mg/dL (1.6-2.6); Potassium 3.6 mmol/L (3.5-5.1); Sodium Level 150 mmol/L (136-145)
[2023-04-01 07:15] LABS: Bedside Glucose 137 mg/dL (74-106)
[2023-04-01 07:15] LABS: Bedside Glucose 44 mg/dL (74-106)
[2023-04-01 07:16] LABS: Anisocytosis 1+; Eosinophil 2 % (0-5); Hypochromasia 1+; Lymphocyte 7 % (19-41); Macrocytosis 1+; Metamyelocyte 3 % (0-1); Monocyte 28 % (0-10); Myelocyte 2 % (0-0); Neutrophil-Band 9 % (0-5); Neutrophil-Segmented 49 % (47-70); Platelet Estimate ADEQUATE (ADEQ); Total Cells Counted 100 (MANUAL DIFF)
[2023-04-01 07:17] LABS: Absolute Lymphocyte Count 1.79 X10^3/uL (0.83-4.51); Absolute Neutrophil Count 14.8 X10^3/uL (2.0-7.7); Lymphocyte # 1.79 X10^3/ul (0.83-4.51); Neutrophil # 14.81 X10^3/uL (2.7-7.7)
[2023-04-01] MEDS: Budesonide Respules 0.5 MG/2 ML AMPUL.NEB. INHALATION ×2 (07:42→20:40)
--- NOTE | 2023-04-01 08:21 | PN.HOSP_ITS ---
Reason for Visit Reason for Visit: Diagnoses Type 2 diabetes mellitus with ketoacidosis without coma (03/22/23) Hyperosmolality and hypernatremia (03/22/23) Metabolic encephalopathy (03/22/23) Unspecified atrial fibrillation (03/22/23) Pleural effusion, not elsewhere classified (03/22/23) Acute kidney failure, unspecified (03/22/23) Chronic kidney disease, stage 2 (mild) (03/22/23) Chronic kidney disease, stage 3b (03/22/23) Other malaise (03/22/23) Subjective Subjective Coughing episode today, concern for aspiration. He subsequently required 6liters of oxygen. Objective Data Objective Data Vital Signs: Vital Signs Temp Pulse Resp BP Pulse Ox O2 Del Method O2 Flow Rate 36.3 C L 85 20 H 137/88 H 96 Nasal Cannula 3 04/01/23 02:59 04/01/23 07:42 04/01/23 07:42 04/01/23 02:59 04/01/23 07:42 04/01/23 07:54 04/01/23 07:54 Oxygen Flow Rate (L/min) 3 Oxygen Delivery Method Nasal Cannula Weight: 75.1 kg Body Mass Index (BMI) 28.4 Intake & Output: Intake and Output for Last 24 Hours 03/30/23 03/31/23 04/01/23 23:59 23:59 23:59 Intake Total 2771.67 / 2771.67 3980 / 3980 960.42 / 960.42 Output Total 3900 / 3900 2500 / 2700 1250 / 1250 Balance -1128.33 / -1128.33 1480 / 1280 -289.58 / -289.58 Medical Nutrition Assessment Dietitian: Malnutrition Criteria Met Start: 03/23/23 10:09 Freq: Status: Active Protocol: Document 03/29/23 14:01 AG (Rec: 03/29/23 14:01 Desktop) Nutrition Malnutrition Evidence of Malnutrition Exists Yes Malnutrition (severe): Acute Illness/Injury Evidenced By Suboptimal Energy Intake ( Severe),Weight Loss (Severe) Clinical Problem Biting/Chewing Difficulty Etiology related to debility Signs/Symptoms as evidenced by need for pureed diet Status Active Problem Acute Disease or Injury Related Malnutrition Etiology severe acute on likely chronic malnutrition related to inadequate energy intake Signs/Symptoms as evidenced by PO intake meeting <50% of estimated energy needs, unintentional 2% wt loss < 1 week Status Active Problem Altered Nutrient-Related Laboratory Values Etiology related to CHRIST on CKD stage III, dehydration Signs/Symptoms as evidenced by BUN 69, creatinine 3.50, sodium 157 Status Inactive Problem Recommendation Dietitian Recommendations/Changes will adjust diet to regular given evidence of malnutrition , texture/consistency per BUTADIENE CONVERTER OPERATOR; will continue glucerna and magic cup w/meals Lab / Micro Data 04/01/23 05:11 04/01/23 05:11 Labs: Laboratory Results - last 24 hr 03/31/23 05:56: Absolute Neuts (auto) 18.2 H, Absolute Lymphs (auto) 2.05, Total Counted 100, Neutrophils % (Manual) 53, Band Neutrophils % 9 H, Lymphocytes % (Manual) 7 L, Monocytes % (Manual) 18 H, Metamyelocytes % 2 H, Myelocytes % 11 H , Nucleated RBCs/100 WBC 1, Diff Path Review October nas, Platelet Estimate MARCO QUATE, RBC Morphology NORM C+C 03/31/23 10:59: POC Glucose 102 03/31/23 16:51: POC Glucose 75 03/31/23 20:51: POC Glucose 110 H 04/01/23 02:58: POC Glucose 94 04/01/23 05:11: WBC 25.5 H, RBC 2.68 L, Hgb 9.2 L, Hct 29.3 L, MCV 109.3 H, MCH 34.3 H, MCHC 31.4 L, RDW Std Deviation 65.0 H, RDW Coeff of Merry 16.3 H, Plt Count 132 L, MPV 13.2 H, Neut % (Auto) Not Reportable, Absolute Neuts (auto) 14.8 H, Absolute Lymphs (auto) 1.79, Total Counted 100, Neutrophils % (Manual) 49, Band Neutrophils % 9 H, Lymphocytes % (Manual) 7 L, Monocytes % (Manual) 28 H, Eosinophils % (Manual) 2, Metamyelocytes % 3 H, Myelocytes % 2 H, Diff Path Review May nas, Platelet Estimate ADEQUATE, Hypochromasia 1+, Anisocytosis 1+, Macrocytosis 1+, Sodium 150 H, Potassium 3.6, Chloride 122 H, Carbon Dioxide 22.0, Anion Gap 6, BUN 52 H, Creatinine 3.08 H, Estim Creat Clear Calc 16.02, Es t GFR (MDRD) Af Amer 25 L, Est GFR (MDRD) Non-Af 21 L, BUN/Creatinine Ratio 16.9, Glucose 59 L, Calcium 8.6, Magnesium 1.9 04/01/23 06:25: POC Glucose 44 L* 04/01/23 06:58: POC Glucose 137 H Micro: Microbiology 03/22/23 20:57 Blood Culture (Wb) - Anticubital Right Blood Culture - Final No growth in 5 days. 03/22/23 22:22 Blood Culture (Wb) - Right Forearm Blood Culture - Final No growth in 5 days. 03/23/23 05:25 Sputum, Expectorated/Coughed Gram Stain - Final 03/23/23 05:25 Sputum, Expectorated/Coughed Respiratory Culture - Final Enterobacter cloacae complex 03/22/23 16:40 Urine, Clean Catch Urine Culture - Final Culture exhibits no growth. 03/22/23 16:40 Urine, Clean Catch Legionella Antigen - Final 03/22/23 16:40 Urine, Clean Catch Streptococcus pneumoniae Antigen (M - Final 03/22/23 20:50 Mucosa - Nasopharyngeal Coronavirus COVID-19 PCR - Final 03/22/23 20:50 Mucosa - Nasopharyngeal Respiratory Panel (PCR) - Final 03/22/23 16:59 Nasal Secretion SARS-CoV-2 & FLU Antigen (Rapid) - Final Physical Exam Const alert and no apparent distress HEENT head/scalp atraumatic and moist oral mucous membranes Resp Resp Narrative: coarse breath sounds bilaterally. Cardio regular rate, regular rhythm, S1 normal heart sound and S2 normal heart sound GI normal to inspection, nondistended, normoactive bowel sounds and soft to palpation Assessment & Plan Assessment/Plan (1) Pleural effusion, right: PLAN: Unclear type, though favor exudative. Loculated. I supect due to chronic aspiration. On broad spectrum abx with pip/tazo. Thoracentesis attempted on the , but was unable to be safely performed due to confusion. Given relatively small size would hold on repeating as high risk of complication from agitation. Concern for aspiration event on 04/01. Repeat CXR. (2) DKA (diabetic ketoacidoses): QUALIFIERS: Diabetes mellitus complication detail: without coma Diabetes mellitus type: type 2 Qualified Code(s): E11.10 - Type 2 diabetes mellitus with ketoacidosis without coma PLAN: POA. Was on insulin gtt, but since transitioned off. history of type 2 diabetes Initiated on insulin drip on admission and admitted to the ICU. Hemoglobin A1c of 12.4%. Glargine 20 BID. Continue SSI. (3) Metabolic encephalopathy: PLAN: Acute metabolic encephalopathy, improving Suspected secondary to acute infection as above with known underlying blindness and difficulty hearing. Unclear if patient has underlying dementia as well. Waxes and wanes, but overall confused. Complicated by profound presbycusis. (4) Atrial fibrillation: PLAN: New onset atrial fibrillation Echo shows an EF of 55%. DC heparin gtt. Start apixaban 2.5 BID. Follows with cardiology outpatient, can continue outpatient follow-up for now. Suspect new onset A-fib is primarily secondary to acute infection. Monitor telemetry. 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 Leveling off. FENa 1.18%. Renal ultrasound negative. PVR IVF. Nephrology following. (6) Debility: PLAN: PT/OT/case management following. Lives at home with his . (7) Hypernatremia: PLAN: Ongoing, though slightly improved today Continue 0.45% NS. (8) Dysphagia: PLAN: Likely acute on chronic Currently NPO ST eval. PLAN: Plan Chronic conditions: * Chronic hypoxic respiratory failure on home 3 L nasal cannula? Secondary to previous COVID infection. Chest x-ray on admit showed interstitial fibrosis that was stable, as well as acute loculated effusion as noted above. Continue supplemental oxygen, wean as able. Treat pneumonia as noted above. Continue home inhalers. * Hypertension: Holding home losartan and Coreg for now, restart as able. * Hard of hearing: Ensure patient has hearing aids in as much as able. * Blindness: Per history. Complicates treatment. DVT prophylaxis: not indicated as on apixaban. CODE STATUS: Full code Disposition: TBD. ANTONY pt's 03/30 about his overall poor condition. Addressed advanced directives with her, she still wishes for him to be full code despite the unlikeliness of surviving CPA. Charges/Coding Visit Charges Inpatient E&M: 71596 Subs Hosp L2
--- NOTE | 2023-04-01 09:05 | PCM.PN.REN ---
Subjective Subjective Following for CHRIST on CKD and hypernatremia. The patient denies chest pain or shortness of breath. There has been no nausea or diarrhea. Objective Data Objective Data Vital Signs: Vital Signs Temp Pulse Resp BP Pulse Ox O2 Del Method O2 Flow Rate 97.4 F L 85 20 H 137/88 H 96 Nasal Cannula 3 04/01/23 02:59 04/01/23 07:42 04/01/23 07:42 04/01/23 02:59 04/01/23 07:42 04/01/23 07:54 04/01/23 07:54 Oxygen Flow Rate (L/min) 3 Oxygen Delivery Method Nasal Cannula Weight: 75.1 kg Body Mass Index (BMI) 28.4 Intake & Output: Intake and Output for Last 24 Hours 03/30/23 03/31/23 04/01/23 23:59 23:59 23:59 Intake Total 2771.67 / 2771.67 3980 / 3980 960.42 / 960.42 Output Total 3900 / 3900 2500 / 2700 1250 / 1250 Balance -1128.33 / -1128.33 1480 / 1280 -289.58 / -289.58 Medical Nutrition Assessment Dietitian: Malnutrition Criteria Met Start: 03/23/23 10:09 Freq: Status: Active Protocol: Document 03/29/23 14:01 (Rec: 03/29/23 14:01 Desktop) Nutrition Malnutrition Evidence of Malnutrition Exists Yes Malnutrition (severe): Acute Illness/Injury Evidenced By Suboptimal Energy Intake ( Severe),Weight Loss (Severe) Clinical Problem Biting/Chewing Difficulty Etiology related to debility Signs/Symptoms as evidenced by need for pureed diet Status Active Problem Acute Disease or Injury Related Malnutrition Etiology severe acute on likely chronic malnutrition related to inadequate energy intake Signs/Symptoms as evidenced by PO intake meeting <50% of estimated energy needs, unintentional 2% wt loss < 1 week Status Active Problem Altered Nutrient-Related Laboratory Values Etiology related to CHRIST on CKD stage III, dehydration Signs/Symptoms as evidenced by BUN 69, creatinine 3.50, sodium 157 Status Inactive Problem Recommendation Dietitian Recommendations/Changes will adjust diet to regular given evidence of malnutrition , texture/consistency per SUMATRA OPENER; will continue glucerna and magic cup w/meals Lab / Micro Data 04/01/23 05:11 04/01/23 05:11 Labs: Laboratory Results - last 24 hr 03/31/23 05:56: Absolute Neuts (auto) 18.2 H, Absolute Lymphs (auto) 2.05, Total Counted 100, Neutrophils % (Manual) 53, Band Neutrophils % 9 H, Lymphocytes % (Manual) 7 L, Monocytes % (Manual) 18 H, Metamyelocytes % 2 H, Myelocytes % 11 H, Nucleated RBCs/100 WBC 1, Diff Path Review May foll, Platelet Estimate ADEQUATE, RBC Morphology NORM C+C 03/31/23 10:59: POC Glucose 102 03/31/23 16:51: POC Glucose 75 03/31/23 20:51: POC Glucose 110 H 04/01/23 02:58: POC Glucose 94 04/01/23 05:11: WBC 25.5 H, RBC 2.68 L, Hgb 9.2 L, Hct 29.3 L, MCV 109.3 H, MCH 34.3 H, MCHC 31.4 L, RDW Std Deviation 65.0 H, RDW Coeff of Merry 16.3 H, Plt Count 132 L, MPV 13.2 H, Neut % (Auto) Not Reportable, Absolute Neuts (auto) 14.8 H, Absolute Lymphs (auto) 1.79, Total Counted 100, Neutrophils % (Manual) 49, Band Neutrophils % 9 H, Lymphocytes % (Manual) 7 L, Monocytes % (Manual) 28 H, Eosinophils % (Manual) 2, Metamyelocytes % 3 H, Myelocytes % 2 H, Diff Path Review May foll, Platelet Estimate ADEQUATE, Hypochromasia 1+, Anisocytosis 1+, Macrocytosis 1+, Sodium 150 H, Potassium 3.6, Chloride 122 H, Carbon Dioxide 22.0, Anion Gap 6, BUN 52 H, Creatinine 3.08 H, Estim Creat Clear Calc 16.02, Est GFR (MDRD) Af Amer 25 L, Est GFR (MDRD) Non-Af 21 L, BUN/Creatinine Ratio 16.9, Glucose 59 L, Calcium 8.6, Magnesium 1.9 04/01/23 06:25: POC Glucose 44 L* 04/01/23 06:58: POC Glucose 137 H Micro: Microbiology 03/22/23 20:57 Blood Culture (Wb) - Anticubital Right Blood Culture - Final No growth in 5 days. 03/22/23 22:22 Blood Culture (Wb) - Right Forearm Blood Culture - Final No growth in 5 days. 03/23/23 05:25 Sputum, Expectorated/Coughed Gram Stain - Final 03/23/23 05:25 Sputum, Expectorated/Coughed Respiratory Culture - Final Enterobacter cloacae complex 03/22/23 16:40 Urine, Clean Catch Urine Culture - Final Culture exhibits no growth. 03/22/23 16:40 Urine, Clean Catch Legionella Antigen - Final 03/22/23 16:40 Urine, Clean Catch Streptococcus pneumoniae Antigen (M - Final 03/22/23 20:50 Mucosa - Nasopharyngeal Coronavirus COVID-19 PCR - Final 03/22/23 20:50 Mucosa - Nasopharyngeal Respiratory Panel (PCR) - Final 03/22/23 16:59 Nasal Secretion SARS-CoV-2 & FLU Antigen (Rapid) - Final Physical Exam Narrative Alert to name, hard of hearing, no apparent distress S1, S2, rhythm irregular rate controlled Lung sounds coarse diffusely abdomen soft, nontender Trace lower extremity edema Assessment & Plan Assessment/Plan (1) CHRIST (acute kidney injury): (2) Chronic kidney disease, stage 3b: (3) Hypernatremia: PLAN: Plan Impression/Plan: The patient is a 82-year-old man with past history of type 2 diabetes mellitus, hypertension, aortic stenosis status post SAVR, mitral valve insufficiency, pulmonary hypertension, and chronic kidney disease stage G3b. The patient presented to the hospital on 03/22/2023 with DKA and acute on chronic hypoxic respiratory failure with right pleural effusion. He is also developed new onset atrial fibrillation during this hospitalization. Nephrology is following for CHRIST on CKD. CHRIST on CKD stage G3b. Baseline serum creatinine appears to be around 1.7 to 1.8 mg/dL. 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 Serum creatinine was 2.67 mg/dL on admission (03/22/2023), improved to 1.9 mg/dL on 03/23, was on IVF and treating DKA. Serum creatinine increased to 2.0 mg/dL on 03/24 and had been slowly rising between 03/24/2023 until 03/29/2023 Serum creatinine increased to 3.50 mg/dL on 03/29/2023. Suspect CHRIST is secondary to ischemic ATN. Fortunately, serum creatinine has plateaued and slightly improved in the last 72 hours. Serum creatinine is down to 3.08 mg/dL today. Urine output is adequate without diuretic. There is no need for kidney replacement therapy. Continue to hold losartan. Continue current supportive care. Keep MAP above 65 mmHg. Recheck renal function, volume status, electrolyte and acid-base again tomorrow. Hypokalemia. Potassium level is better today at 3.6 mmol/L. Potassium has been low since 03/27/2023. Magnesium has not been low. Magnesium is 1.9 mg/dL today. Continue current potassium supplement and monitor serum potassium. Hypernatremia Hypernatremia may be due to prior polyuria (he made 3.1 L of urine without diuretic on 03/31/2023) and lack of oral intake. He is a total feed which limits ability to get water on his own. Encourage staff to push oral water. Serum sodium is a bit better today at 150 mmol/L. If serum sodium rises again, I will start D5W.
[2023-04-01] MEDS: Pantoprazole Sodium 40 MG Tablet PO (10:15)
[2023-04-01] MEDS: APIXABAN 2.5 MG TABLET (WCH) PO ×2 (10:15→19:42)
[2023-04-01] MEDS: Potassium Chloride Oral Tablet 20 MEQ 40 MEQ PO ×2 (10:15→16:47)
[2023-04-01] MEDS: NYSTATIN 500,000 UNIT/5 ML UDC 500000 UNIT PO ×3 (10:16→21:48)
[2023-04-01] MEDS: Piperacil/Tazobactam 3.375 GM in 0.9% Normal Saline (50mL MB+) 50 ML IV ×2 (10:20→21:48)
[2023-04-01 10:30] LABS: Bedside Glucose 80 mg/dL (74-106)
[2023-04-01] MEDS: Albuterol 2.5 MG/3 ML VIAL.NEB. INHALATION ×2 (12:49→20:40)
--- NOTE | 2023-04-01 13:10 | RAD_ITS ---
HISTORY: aspiration. TECHNIQUE: XR Chest 1 View. COMPARISON: 03/23/2023. FINDINGS: LINES/TUBES: None. CARDIOMEDIASTINAL BORDERS: Stable with midline sternotomy, valve prostheses, and closure device. LUNGS: Focal opacity in the right midlung. Increased right basilar opacity. Mild left basilar atelectasis. PLEURA: Increased moderate loculated right pleural effusion with probable mild air. Trace left pleural effusion RAD/Chest 1 View (Portable) IMPRESSION: Increased size of right pleural effusion with a loculated appearance, possible empyema. Increased focal opacity in the right midlung from pneumonia or loculated effusion. Increased atelectasis or pneumonia of the right lung base. Electronically Signed: Anat Nguyen MD at 13:37 EDT ,
--- NOTE | 2023-04-01 13:44 | US_ITS ---
PROCEDURE: ULTRASOUND GUIDED THORACENTESIS. DATE: April 02, 2023.. INDICATION: Male, 82 years old. Right pleural effusion. PHYSICIAN: Davie Scott M.D. PROCEDURE: The risks, benefits, and alternatives to the procedure were explained to the patient. The specific risks of bleeding, infection, and pneumothorax requiring chest tube insertion were discussed and accepted. Written informed consent was obtained. Ultrasonographic evaluation of the right lower pleural space was carried out. An adequate pocket was identified. The patient was placed in the sitting, upright position. The overlying skin was prepped and draped in sterile fashion. 1% lidocaine was administered subcutaneously for local anesthesia. Under ultrasound guidance, a 5 Guamanian thoracentesis needle/catheter system was advanced into the right posterior lower pleural fluid collection. Approximately 380 mL of purulent fluid was drained. The catheter was removed, and a sterile dressing was applied. A specimen was collected and sent to the laboratory for analysis, as requested by the referring clinician. The patient tolerated the procedure well. A chest x-ray was ordered. US/Thoracentesis W US IMPRESSION: Ultrasound-guided right thoracentesis. Electronically Signed: Davie Scott MD at 14:55 EDT ,
[2023-04-01] MEDS: Insulin Lispro 100 UNIT/ML INSULN.PEN SC ×2 (16:48→22:03)
[2023-04-01 17:23] LABS: Bedside Glucose 236 mg/dL (74-106)
[2023-04-01] MEDS: Insulin Glargine-YFGN 100 UNIT/ML Pen 10 UNIT SC (22:04)
[2023-04-01 22:24] LABS: Bedside Glucose 291 mg/dL (74-106)
[2023-04-02] VITALS (7 sets, daily range): BP systolic 107–144; BP diastolic 66–98; PULSE 70–108; RESP 16–30; TEMP 36.1–37.4; O2SAT 92–98; BMI 28.0
[2023-04-02] MEDS: Insulin Lispro 100 UNIT/ML INSULN.PEN SC ×4 (02:14→21:20)
[2023-04-02 02:33] LABS: Bedside Glucose 210 mg/dL (74-106)
[2023-04-02] MEDS: 0.45% Normal Saline 1,000 ML 125 ML IV ×3 (05:25→22:25)
[2023-04-02 06:09] LABS: Hematocrit 25.7 % (40-54); Hemoglobin 7.9 g/dL (13.0-16.5); Mean Corp Hgb Conc 30.7 g/dL (32-36); Mean Corpuscular Hgb 34.3 pg (27.0-32.0); Mean Corpuscular Volume 111.7 fL (80-94); POSITIVE COUNT YES; POSITIVE DIFFERENTIAL YES; POSITIVE MORPHOLOGY YES; Platelet Count 150 K/mm3 (150-450); RBC Distribution Width CV 16.5 % (11.6-14.6); White Blood Count 22.2 K/mm3 (4.4-11.0)
[2023-04-02 06:15] LABS: Differential Indicated MANUAL DIFF
[2023-04-02 06:54] LABS: Bedside Glucose 73 mg/dL (74-106)
[2023-04-02] MEDS: Budesonide Respules 0.5 MG/2 ML AMPUL.NEB. INHALATION ×2 (07:06→19:04)
[2023-04-02 07:07] LABS: ALB/GLOB Ratio 0.3 RATIO (0.9-2.4); AST(SGOT) 12 U/L (15-37); Alanine Aminotransfer ALT/SGPT 17 U/L (16-61); Albumin, Serum 1.5 g/dL (3.2-5.0); Alkaline Phosphatase 325 U/L (45-117); Anion Gap 6 (5-15); BUN 46 mg/dL (7-18); BUN/Creat Ratio 15.2 RATIO (10-20); Calcium,Total 8.6 mg/dL (8.5-10.1); Chloride 123 mmol/L (98-107); Creatinine, Serum 3.02 mg/dL (0.70-1.30); EST Glomerular Filtration Rate 21 mL/min (>60); Est Glom Filt Rate - Afr Amer 26 mL/min (>60); Estimated Creatinine Clearance 16.34 ml/min; Globulin 4.9 g/dL (2.2-4.2); Glucose 107 mg/dL (74-106); LDH 220 U/L (87-241); Protein, Total 6.4 g/dL (6.4-8.2); Sodium Level 150 mmol/L (136-145)
[2023-04-02 07:27] LABS: Anisocytosis 1+; Hypochromasia 1+; Lymphocyte 11 % (19-41); Metamyelocyte 1 % (0-1); Monocyte 12 % (0-10); Neutrophil-Band 3 % (0-5); Neutrophil-Segmented 73 % (47-70); Nucleated Red Bld Cells,Manual 1 % (0-5); Total Cells Counted 100 (MANUAL DIFF)
[2023-04-02 07:28] LABS: Absolute Neutrophil Count 16.7 X10^3/uL (2.0-7.7); Platelet Estimate SLT DEC (ADEQ)
--- NOTE | 2023-04-02 08:04 | PN.HOSP_ITS ---
Reason for Visit Reason for Visit: Diagnoses Type 2 diabetes mellitus with ketoacidosis without coma (03/22/23) Hyperosmolality and hypernatremia (03/22/23) Metabolic encephalopathy (03/22/23) Unspecified atrial fibrillation (03/22/23) Pleural effusion, not elsewhere classified (03/22/23) Acute kidney failure, unspecified (03/22/23) Chronic kidney disease, stage 2 (mild) (03/22/23) Chronic kidney disease, stage 3b (03/22/23) Dysphagia, unspecified (03/22/23) Other malaise (03/22/23) Subjective Subjective Feels short of breath. Objective Data Objective Data Vital Signs: Vital Signs Temp Pulse Resp BP Pulse Ox O2 Del Method O2 Flow Rate 36.4 C L 98 22 H 126/82 H 98 Nasal Cannula 4 04/02/23 02:30 04/02/23 02:30 04/02/23 02:30 04/02/23 02:30 04/02/23 02:30 04/02/23 02:30 04/02/23 02:30 Oxygen Flow Rate (L/min) 4 Oxygen Delivery Method Nasal Cannula Weight: 74.3 kg Body Mass Index (BMI) 28.0 Intake & Output: Intake and Output for Last 24 Hours 03/31/23 04/01/23 04/02/23 23:59 23:59 23:59 Intake Total 3980 / 3980 3690.42 / 3690.42 1020.83 / 1020.83 Output Total 2500 / 2700 2550 / 2550 450 / 450 Balance 1480 / 1280 1140.42 / 1140.42 570.83 / 570.83 Medical Nutrition Assessment Dietitian: Malnutrition Criteria Met Start: 03/23/23 10:09 Freq: Status: Active Protocol: Document 03/29/23 14:01 AG (Rec: 03/29/23 14:01 Desktop) Nutrition Malnutrition Evidence of Malnutrition Exists Yes Malnutrition (severe): Acute Illness/Injury Evidenced By Suboptimal Energy Intake ( Severe),Weight Loss (Severe) Clinical Problem Biting/Chewing Difficulty Etiology related to debility Signs/Symptoms as evidenced by need for pureed diet Status Active Problem Acute Disease or Injury Related Malnutrition Etiology severe acute on likely chronic malnutrition related to inadequate energy intake Signs/Symptoms as evidenced by PO intake meeting <50% of estimated energy needs, unintentional 2% wt loss < 1 week Status Active Problem Altered Nutrient-Related Laboratory Values Etiology related to CHRIST on CKD stage III, dehydration Signs/Symptoms as evidenced by BUN 69, creatinine 3.50, sodium 157 Status Inactive Problem Recommendation Dietitian Recommendations/Changes will adjust diet to regular given evidence of malnutrition , texture/consistency per ECHO VASCULAR TECHNOLOGIST; will continue glucerna and magic cup w/meals Lab / Micro Data 04/02/23 04:30 04/02/23 04:30 Labs: Laboratory Results - last 24 hr 04/01/23 10:11: POC Glucose 80 04/01/23 16:43: POC Glucose 236 H 04/01/23 22:01: POC Glucose 291 H 04/02/23 02:08: POC Glucose 210 H 04/02/23 04:30: WBC 22.2 H, RBC 2.30 L, Hgb 7.9 L, Hct 25.7 L, MCV 111.7 H, MCH 34.3 H, MCHC 30.7 L, RDW Std Deviation 67.0 H, RDW Coeff of Merry 16.5 H, Plt Count 150, MPV 13.0 H, Neut % (Auto) Not Reportable, Absolute Neuts (auto) 16.7 H, Absolute Lymphs (auto) 2.40, Total Counted 100, Neutrophils % (Manual) 73 H, Band Neutrophils % 3, Lymphocytes % (Manual) 11 L, Monocytes % (Manual) 12 H, Metamyelocytes % 1, Nucleated RBCs/100 WBC 1, Diff Path Review May , Platelet Estimate SLT DEC, Hypochromasia 1+, Anisocytosis 1+, Sodium 150 H, Potassium 4.0, Chloride 123 H, Carbon Dioxide 21.0, Anion Gap 6, BUN 46 H, Creatinine 3.02 H, Estim Creat Clear Calc 16.34, Est GFR (MDRD) Af Amer 26 L, Est GFR (MDRD) Non-Af 21 L, BUN/Creatinine Ratio 15.2, Glucose 107 H, Calcium 8.6, Total Bilirubin 0.50, AST 12 L, ALT 17, Alkaline Phosphatase 325 H, Lactate Dehydrogenase 220, Total Protein 6.4, Albumin 1.5 L, Globulin 4.9 H, Albumin/Globulin Ratio 0.3 L 04/02/23 05:50: POC Glucose 73 L Micro: Microbiology 03/22/23 20:57 Blood Culture (Wb) - Anticubital Right Blood Culture - Final No growth in 5 days. 03/22/23 22:22 Blood Culture (Wb) - Right Forearm Blood Culture - Final No growth in 5 days. 03/23/23 05:25 Sputum, Expectorated/Coughed Gram Stain - Final 03/23/23 05:25 Sputum, Expectorated/Coughed Respiratory Culture - Final Enterobacter cloacae complex 03/22/23 16:40 Urine, Clean Catch Urine Culture - Final Culture exhibits no growth. 03/22/23 16:40 Urine, Clean Catch Legionella Antigen - Final 03/22/23 16:40 Urine, Clean Catch Streptococcus pneumoniae Antigen (M - Final 03/22/23 20:50 Mucosa - Nasopharyngeal Coronavirus COVID-19 PCR - Final 03/22/23 20:50 Mucosa - Nasopharyngeal Respiratory Panel (PCR) - Final 03/22/23 16:59 Nasal Secretion SARS-CoV-2 & FLU Antigen (Rapid) - Final Radiography Diagnostic Testing: Radiology Impression Chest X-Ray 04/01/23 13:10 IMPRESSION: Increased size of right pleural effusion with a loculated appearance, possible empyema. Increased focal opacity in the right midlung from pneumonia or loculated effusion. Increased atelectasis or pneumonia of the right lung base. Electronically Signed: Anat Nguyen MD at 13:37 EDT , Physical Exam Const alert and no apparent distress Constitutional Narrative: more alert overall. Resp normal respiratory effort, no retractions, no use of accessory muscles and clear to auscultation bilaterally Cardio regular rate, regular rhythm, S1 normal heart sound and S2 normal heart sound GI normal to inspection, nondistended, normoactive bowel sounds, soft to palpation and non-tender Assessment & Plan Assessment/Plan (1) Pleural effusion, right: PLAN: Unclear type, though favor exudative. Loculated. I supect due to chronic aspiration. On broad spectrum abx with pip/tazo. Thoracentesis attempted on the , but was unable to be safely performed due to confusion. Will reattempt. If pt cannot tolerate again, would not pursue further. Concern for aspiration event on 04/01. Repeat CXR. (2) DKA (diabetic ketoacidoses): QUALIFIERS: Diabetes mellitus complication detail: without coma Diabetes mellitus type: type 2 Qualified Code(s): E11.10 - Type 2 diabetes mellitus with ketoacidosis without coma PLAN: POA. Was on insulin gtt, but since transitioned off. history of type 2 diabetes Initiated on insulin drip on admission and admitted to the ICU. Hemoglobin A1c of 12.4%. Had issues with hypogylcemia on 04/01, so glargine decreased from 20, to 10 BID. Glargine 10 BID. Continue SSI. (3) Metabolic encephalopathy: PLAN: Acute metabolic encephalopathy, improving Suspected secondary to acute infection as above with known underlying blindness and difficulty hearing. Unclear if patient has underlying dementia as well. Waxes and wanes, but overall confused. Complicated by profound presbycusis. (4) Atrial fibrillation: PLAN: New onset atrial fibrillation Echo shows an EF of 55%. DC heparin gtt. Start apixaban 2.5 BID. Follows with cardiology outpatient, can continue outpatient follow-up for now. Suspect new onset A-fib is primarily secondary to acute infection. Monitor telemetry. 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 Leveling off. FENa 1.18%. Renal ultrasound negative. PVR IVF. Nephrology following. (6) Debility: PLAN: PT/OT/case management following. Lives at home with his . (7) Hypernatremia: PLAN: Ongoing Continue 0.45% NS. (8) Dysphagia: PLAN: Likely acute on chronic ST eval. Recommending Puree textures, thin liquids, small bites and sips, liquid by teaspoon only HOB 90 degrees. Total feed. PLAN: Plan Chronic conditions: * Chronic hypoxic respiratory failure on home 3 L nasal cannula? Secondary to previous COVID infection. Chest x-ray on admit showed interstitial fibrosis that was stable, as well as acute loculated effusion as noted above. Continue supplemental oxygen, wean as able. Treat pneumonia as noted above. Continue home inhalers. * Hypertension: Holding home losartan and Coreg for now, restart as able. * Hard of hearing: Ensure patient has hearing aids in as much as able. * Blindness: Per history. Complicates treatment. DVT prophylaxis: not indicated as on apixaban. CODE STATUS: Full code Disposition: TBD. DW pt's 03/30 about his overall poor condition. Addressed advanced directives with her, she still wishes for him to be full code despite the unl ikeliness of surviving CPA. Charges/Coding Visit Charges Inpatient E&M: 83845 Subs Hosp L2
--- NOTE | 2023-04-02 09:57 | CASEMGMT ---
Social Work SW called pt's again, left a 3rd message to call SW back about discharge planning. SW spoke w/RN, she has not spoken w/ today either, will let SW know if speaks to her. RAH Isals
[2023-04-02] MEDS: NYSTATIN 500,000 UNIT/5 ML UDC 500000 UNIT PO ×3 (10:20→16:43)
[2023-04-02] MEDS: APIXABAN 2.5 MG TABLET (WCH) PO ×2 (10:20→21:19)
[2023-04-02] MEDS: Pantoprazole Sodium 40 MG Tablet PO (10:20)
[2023-04-02] MEDS: Insulin Glargine-YFGN 100 UNIT/ML Pen 10 UNIT SC ×2 (10:20→21:19)
[2023-04-02] MEDS: Piperacil/Tazobactam 3.375 GM in 0.9% Normal Saline (50mL MB+) 50 ML IV ×2 (10:21→21:12)
[2023-04-02] MEDS: Potassium Chloride Oral Tablet 20 MEQ 40 MEQ PO ×2 (10:21→16:43)
--- NOTE | 2023-04-02 10:40 | PN.RENAL_ITS ---
Subjective Subjective Resting in bed. No overnight events. Alert to self. Follows simple commands. Objective Data Objective Data Vital Signs: Vital Signs Temp Pulse Resp BP Pulse Ox O2 Del Method O2 Flow Rate 97.6 F L 94 16 126/82 H 92 Nasal Cannula 4 04/02/23 02:30 04/02/23 07:08 04/02/23 07:08 04/02/23 02:30 04/02/23 07:08 04/02/23 08:28 04/02/23 08:28 FiO2 97 04/02/23 08:28 Oxygen Flow Rate (L/min) 4 Oxygen Delivery Method Nasal Cannula Weight: 74.3 kg Body Mass Index (BMI) 28.0 Intake & Output: Intake and Output for Last 24 Hours 03/31/23 04/01/23 04/02/23 23:59 23:59 23:59 Intake Total 3980 / 3980 3690.42 / 3690.42 1260.83 / 1260.83 Output Total 2500 / 2700 2550 / 2550 1075 / 1075 Balance 1480 / 1280 1140.42 / 1140.42 185.83 / 185.83 Medical Nutrition Assessment Dietitian: Malnutrition Criteria Met Start: 03/23/23 10:09 Freq: Status: Active Protocol: Document 03/29/23 14:01 (Rec: 03/29/23 14:01 Desktop) Nutrition Malnutrition Evidence of Malnutrition Exists Yes Malnutrition (severe): Acute Illness/Injury Evidenced By Suboptimal Energy Intake ( Severe),Weight Loss (Severe) Clinical Problem Biting/Chewing Difficulty Etiology related to debility Signs/Symptoms as evidenced by need for pureed diet Status Active Problem Acute Disease or Injury Related Malnutrition Etiology severe acute on likely chronic malnutrition related to inadequate energy intake Signs/Symptoms as evidenced by PO intake meeting <50% of estimated energy needs, unintentional 2% wt loss < 1 week Status Active Problem Altered Nutrient-Related Laboratory Values Etiology related to CHRIST on CKD stage III, dehydration Signs/Symptoms as evidenced by BUN 69, creatinine 3.50, sodium 157 Status Inactive Problem Recommendation Dietitian Recommendations/Changes will adjust diet to regular given evidence of malnutrition , texture/consistency per STATIONARY ENGINEER; will continue glucerna and magic cup w/meals Lab / Micro Data 04/02/23 04:30 04/02/23 04:30 Labs: Laboratory Results - last 24 hr 04/01/23 16:43: POC Glucose 236 H 04/01/23 22:01: POC Glucose 291 H 04/02/23 02:08: POC Glucose 210 H 04/02/23 04:30: WBC 22.2 H, RBC 2.30 L, Hgb 7.9 L, Hct 25.7 L, MCV 111.7 H, MCH 34.3 H, MCHC 30.7 L, RDW Std Deviation 67.0 H, RDW Coeff of Merry 16.5 H, Plt Count 150, MPV 13.0 H, Neut % (Auto) Not Reportable, Absolute Neuts (auto) 16.7 H, Absolute Lymphs (auto) 2.40, Total Counted 100, Neutrophils % (Manual) 73 H, Band Neutrophils % 3, Lymphocytes % (Manual) 11 L, Monocytes % (Manual) 12 H, Metamyelocytes % 1, Nucleated RBCs/100 WBC 1, Diff Path Review October, Platelet Estimate SLT DEC, Hypochromasia 1+, Anisocytosis 1+, Sodium 150 H, Potassium 4.0, Chloride 123 H, Carbon Dioxide 21.0, Anion Gap 6, BUN 46 H, Creatinine 3.02 H, Estim Creat Clear Calc 16.34, Est GFR (MDRD) Af Amer 26 L, Est GFR (MDRD) Non-Af 21 L, BUN/Creatinine Ratio 15.2, Glucose 107 H, Calcium 8.6, Total Bilirubin 0.50, AST 12 L, ALT 17, Alkaline Phosphatase 325 H, Lactate Dehydrogenase 220, Total Protein 6.4, Albumin 1.5 L, Globulin 4.9 H, Albumin/Globulin Ratio 0.3 L 04/02/23 05:50: POC Glucose 73 L Micro: Microbiology 03/22/23 20:57 Blood Culture (Wb) - Anticubital Right Blood Culture - Final No growth in 5 days. 03/22/23 22:22 Blood Culture (Wb) - Right Forearm Blood Culture - Final No growth in 5 days. 03/23/23 05:25 Sputum, Expectorated/Coughed Gram Stain - Final 03/23/23 05:25 Sputum, Expectorated/Coughed Respiratory Culture - Final Enterobacter cloacae complex 03/22/23 16:40 Urine, Clean Catch Urine Culture - Final Culture exhibits no growth. 03/22/23 16:40 Urine, Clean Catch Legionella Antigen - Final 03/22/23 16:40 Urine, Clean Catch Streptococcus pneumoniae Antigen (M - Fi nal 03/22/23 20:50 Mucosa - Nasopharyngeal Coronavirus COVID-19 PCR - Final 03/22/23 20:50 Mucosa - Nasopharyngeal Respiratory Panel (PCR) - Final 03/22/23 16:59 Nasal Secretion SARS-CoV-2 & FLU Antigen (Rapid) - Final Radiography Diagnostic Testing: Radiology Impression Chest X-Ray 04/01/23 13:10 IMPRESSION: Increased size of right pleural effusion with a loculated appearance, possible empyema. Increased focal opacity in the right midlung from pneumonia or loculated effusion. Increased atelectasis or pneumonia of the right lung base. Electronically Signed: Anat Nguyen MD at 13:37 EDT , Physical Exam Narrative Alert to name, hard of hearing, no apparent distress S1, S2, rhythm irregular rate controlled Lung sounds coarse but improves with cough and deep breathe abdomen soft, nontender Trace lower extremity edema Assessment & Plan Assessment/Plan (1) CHRIST (acute kidney injury): (2) Chronic kidney disease, stage 3b: (3) Hypernatremia: PLAN: Plan Impression/Plan: The patient is a 82-year-old man with past history of type 2 diabetes mellitus, hypertension, aortic stenosis status post SAVR, mitral valve insufficiency, pulmonary hypertension, and chronic kidney disease stage G3b. The patient presented to the hospital on 03/22/2023 with DKA and acute on chronic hypoxic respiratory failure with right pleural effusion. He also developed new onset atrial fibrillation during this hospitalization. Nephrology is following for CHRIST on CKD. - CHRIST on CKD stage G3b. Baseline serum creatinine appears to be around 1.7 to 1.8 mg/dL. 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 Serum creatinine was 2.67 mg/dL on admission (03/22/2023), improved to 1.9 mg/dL on 03/23, was on IVF and treating DKA. SCr 2.0 mg/dL on 03/24 and had been slowly rising between 03/24/2023 until 03/29/2023, SCr peaked 3.50 mg/dL on 03/29, today SCr 3.0mg/dL. Suspect CHRIST is secondary to ischemic ATN. Fortunately, serum creatinine has plateaued and slightly improved over last few days. He is on IVF. Serum creatinine is down to 3.02 mg/dL today. There is no need for kidney replacement therapy. Continue to hold losartan. - Hypokalemia; resolved - Hypernatremia may be due to prior polyuria (he made 3.1 L of urine without diuretic on 03/31/2023) and lack of oral intake. Patient is a total feed which limits ability to get water on his own. Encouraged staff to push free water. Sodium peaked 157 and has improved 150 over past 2 days. - possible thoracentesis today
--- NOTE | 2023-04-02 11:21 | CASEMGMT ---
SW received a call from patient's . SW explained that patient is going to need to go to a [facility] for rehab. Patient's does not know which facility. ALEKSANDR told patient's SW will leave a list of a list of [facility] facility providers including quality and resource use data and consistent with patient?s preferred geographic region, medical needs, and insurance network were provided from the [facility] Guide in patient's room. SW explained that she whill need to pick 3 facilities she is okay with and SW will contact the facilities. Patient's was not sure if she was coming in today or not. SW placed the list in patient's room. SW also put a note on the list reminding patient's to pick 3 facilities along with SW's name and number. Arianne Maxwell ELECTRO MECHANICAL TECHNICIANItalo NUNEZ
[2023-04-02 11:51] LABS: Bedside Glucose 158 mg/dL (74-106)
[2023-04-02] MEDS: Lidocaine 2% (20 ml mdv) 20 ML Vial INFILT (13:45)
--- NOTE | 2023-04-02 13:46 | FLU_PTH ---
PATIENT: GILBERTO DE LEÓN LOC: [facility] U#:[id number] AGE/SX: 82/M ROOM: [facility] RE03/22/[address]: Dr. Meño Lopez MD : [id number] BED: 1 DIS: 04/06/2023 SPEC #: [id number] RECD: 04/02/23 14:34 STATUS: DOLORES DE LEÓN #: [id number] DANNI: 04/02/23 13:[address]: Carlos Lozoya DEPT: CYTOLOGY RECD BY: Marium Moss ENTERED: 04/03/23 08:48 SP TYPE: Fluid OTHR DR: DO Dr. Berny Rodriguez MD Dr. Jayaprakas Dasari, MD Dr. Prakash Chand, MD Tissues: Pleural fluid, NOS Procedures: Special Stain Group II Surgery Specimen Level IV Cytospin Fluid HEADER OPERATION: Ultrasound-guided thoracentesis, right PRE-OP DIAGNOSIS: Right pleural effusion TISSUE SUBMITTED: Thoracentesis fluid for cytology DIAGNOSIS CYTOLOGY Thoracentesis fluid for cytology (cytospin and cell block): Negative for malignant cells. Acute inflammation. AM:jorge 04/04/2023 CYTOLOGY STUDY Slides are reviewed. CYTOLOGY GROSS Received is 85 ml of reddish-yellow cloudy fluid labeled with the patient's name and and designated per the requisition as thoracentesis. Submitted for cytology preparation including cell block. / jorge 04/03/2023 TC:5 CPT: 61134, 01520
--- NOTE | 2023-04-02 13:55 | RAD_ITS ---
STUDY: X-RAY CHEST REASON FOR EXAM: Male, 82 years old. Post thora TECHNIQUE: AP inspiration and expiration views. COMPARISON: Comparison is made with prior study April 01, 2023. FINDINGS: EKG electrodes are seen. The patient is status post right thoracentesis. No evidence of pneumothorax. Residual pulmonary infiltrates persist. RAD/Chest Insp/Exp 2 View IMPRESSION: Status post right thoracentesis. No evidence of pneumothorax. Electronically Signed: Davie Scott MD at 14:35 EDT ,
--- NOTE | 2023-04-02 14:04 | PRO.PCM_ITS ---
Procedure Report Date of Procedure: 04/02/23 Assessment & Plan Assessment/Plan (1) Pleural effusion, right: PLAN: PROCEDURE: Ultrasound Guided Thoracentesis ORDERING PROVIDER: Dr. Lozoya INDICATION: Male, 82 years old. Right pleural effusion. PROVIDER: AALIYAH Bond PROCEDURE: Consent for this procedure today was attempted to be obtained from the by multiple phone calls by the nursing staff. However, the was unable to be reached today. A thoracentesis was also ordered on March 23; at which time, I had personally spoken with the and received consent for a thoracentesis, discussing the risks, benefits, and alternatives to the procedure were explained to the . The specific risks of bleeding, infection, and pneumothorax requiring chest tube insertion were discussed and accepted. Per floor nursing staff, the was agreeable to the current plan of care, including this procedure. Ultrasonographic evaluation of the bilateral lower pleural spaces was carried out. An adequate pocket was identified in the right pleural space. The patient was placed in the sitting, upright position. The overlying skin was prepped and draped in sterile fashion. 2 % lidocaine was administered subcutaneously for local anesthesia. Under ultrasound guidance, a 5-[place] thoracentesis needle/catheter system was advanced into the right posterior lower pleural fluid collection. 380 ml of purulent colored fluid was drained. 100 mL of this fluid was sent to the lab for analysis, per requesting physician. The catheter was removed, and a sterile dressing was applied. The patient tolerated the procedure well. A chest x-ray was ordered. IMPRESSION: Successful ultrasound-guided thoracentesis of right pleural effusion. Procedures Radiology Radiology US Procedures: 52480 Thoracentesis
[2023-04-02] MEDS: Menthol/Lanolin/Calamine/Znox 113 GM Tube 1 APPLIC TOPICAL ×2 (14:26→21:18)
[2023-04-02 14:47] LABS: Body Fluid Mononuclear WBC # 67.448 10^3/uL; Body Fluid Mononuclear WBC % 26.9 %; Body Fluid Polynuclear WBC % 73.1 %
[2023-04-02 15:19] LABS: Neutrophil (Segs) 96 %; Other Cell Type/BF 4 %
[2023-04-02 15:20] LABS: Appearance/Body Fluid TURBID; Auto B Fluid Analyzer BKGD Ct COUNTS W/IN LIMITS (W/IN LIMITS); Body Fluid QC Type(s) BF1Q; Color/Body Fluid YELLOW; Source- Body Fluid THORACENTESIS
[2023-04-02 15:35] LABS: Glucose, Body Fluid 5 mg/dL (40-70); Protein, Body Fluid 3.9 g/dL (Not Establ.)
--- NOTE | 2023-04-02 16:46 | CT_ITS ---
INDICATION: pleural effusion EXAMINATION: CT CHEST WITHOUT CONTRAST - CT Chest W/O Contrast Injection TECHNIQUE: Helically acquired images were obtained of the chest. A radiation dose optimization technique was used for this scan. IV Contrast dosage and agent: None. COMPARISON: 03/22/2023 FINDINGS: Status post median sternotomy. LUNGS, PLEURA AND LARGE AIRWAYS: Mosaic attenuation of the lung parenchyma. Persistent moderate right-sided pleural effusion which appears multiloculated with an air-filled cavity laterally and a Ablation within the major fissure worrisome for empyema. Small left pleural effusion. THYROID: No thyroid lesions. HEART AND PERICARDIUM: Cardiomegaly. No pericardial effusion. CORONARY ARTERIES: Coronary artery calcification is seen. VESSELS: Thoracic aorta is not dilated. MEDIASTINUM AND JERMAIN: Some prominent mediastinal lymph nodes which are likely reactive. Esophagus is unremarkable. No hiatal hernia. UPPER ABDOMEN: Status post cholecystectomy. BONES: No suspicious lytic or blastic abnormality. CT/Chest without Contrast IMPRESSION: Persistent moderate-sized loculated right-sided pleural effusion worrisome for empyema with an air-fluid loculation laterally and a loculation within the major fissure. Associated right lower lobe atelectasis or pneumonia. Electronically Signed: John Greene MD at 21:39 EDT ,
[2023-04-02 17:00] LABS: Bedside Glucose 267 mg/dL (74-106)
[2023-04-02 17:16] LABS: LDH,Body Fluid > 4000 Units/L (Not Establ.)
[2023-04-02 21:41] LABS: Bedside Glucose 256 mg/dL (74-106)
[2023-04-03 02:57] VITALS: BP 135/78; PULSE 70; RESP 24; TEMP 36.3; O2SAT 93
[2023-04-03 02:58] LABS: Bedside Glucose 139 mg/dL (74-106)
[2023-04-03] MEDS: Menthol/Lanolin/Calamine/Znox 113 GM Tube 1 APPLIC TOPICAL ×3 (05:24→22:27)
[2023-04-03] MEDS: Insulin Lispro 100 UNIT/ML INSULN.PEN SC ×4 (05:26→22:32)
[2023-04-03 05:46] LABS: Bedside Glucose 166 mg/dL (74-106)
[2023-04-03 06:00] VITALS: BMI 27.6
[2023-04-03 06:08] LABS: Hematocrit 26.6 % (40-54); Hemoglobin 8.2 g/dL (13.0-16.5); Mean Corp Hgb Conc 30.8 g/dL (32-36); Mean Corpuscular Hgb 34.2 pg (27.0-32.0); Mean Corpuscular Volume 110.8 fL (80-94); Mean Platelet Vol. 12.3 fl (6.2-12.0); POSITIVE COUNT YES; POSITIVE DIFFERENTIAL YES; POSITIVE MORPHOLOGY YES; Platelet Count 173 K/mm3 (150-450); RBC Distribution Width CV 16.8 % (11.6-14.6); RBC Distribution Width SD 67.2 fl (35.1-43.9); White Blood Count 17.9 K/mm3 (4.4-11.0)
[2023-04-03 06:12] LABS: Differential Indicated MANUAL DIFF
[2023-04-03] MEDS: 0.45% Normal Saline 1,000 ML 125 ML IV ×2 (06:15→13:06)
[2023-04-03 06:30] LABS: Anisocytosis 1+; Macrocytosis 2+; Platelet Estimate ADEQUATE (ADEQ)
[2023-04-03 06:34] LABS: Absolute Neutrophil Count 12.1 X10^3/uL (2.0-7.7)
[2023-04-03 06:35] LABS: Absolute Lymphocyte Count 1.43 X10^3/uL (0.83-4.51); Eosinophil 2 % (0-5); Lymphocyte 8 % (19-41); Metamyelocyte 2 % (0-1); Monocyte 15 % (0-10); Myelocyte 4 % (0-0); Neutrophil-Band 10 % (0-5); Neutrophil-Segmented 58 % (47-70); Promyelocyte 1 % (0-0); Total Cells Counted 100 (MANUAL DIFF)
[2023-04-03 06:41] LABS: Anion Gap 4 (5-15); BUN 42 mg/dL (7-18); BUN/Creat Ratio 14.1 RATIO (10-20); Calcium,Total 8.8 mg/dL (8.5-10.1); Chloride 123 mmol/L (98-107); Creatinine, Serum 2.97 mg/dL (0.70-1.30); EST Glomerular Filtration Rate 22 mL/min (>60); Est Glom Filt Rate - Afr Amer 26 mL/min (>60); Estimated Creatinine Clearance 16.61 ml/min; Glucose 167 mg/dL (74-106); Potassium 4.8 mmol/L (3.5-5.1); Sodium Level 149 mmol/L (136-145)
[2023-04-03 07:30] VITALS: O2SAT 93
--- NOTE | 2023-04-03 08:28 | PN.HOSP_ITS ---
Reason for Visit Reason for Visit: Diagnoses Type 2 diabetes mellitus with ketoacidosis without coma (03/22/23) Hyperosmolality and hypernatremia (03/22/23) Metabolic encephalopathy (03/22/23) Unspecified atrial fibrillation (03/22/23) Pleural effusion, not elsewhere classified (03/22/23) Acute kidney failure, unspecified (03/22/23) Chronic kidney disease, stage 2 (mild) (03/22/23) Chronic kidney disease, stage 3b (03/22/23) Dysphagia, unspecified (03/22/23) Other malaise (03/22/23) Subjective Subjective No events overnight. Objective Data Objective Data Vital Signs: Vital Signs Temp Pulse Resp BP Pulse Ox O2 Del Method O2 Flow Rate 36.3 C L 70 24 H 135/78 H 93 Nasal Cannula 4 04/03/23 02:57 04/03/23 02:57 04/03/23 02:57 04/03/23 02:57 04/03/23 02:57 04/03/23 02:57 04/03/23 02:42 FiO2 97 04/02/23 08:28 Oxygen Flow Rate (L/min) [3] 4 Oxygen Flow Rate (L/min) [2] 4 Oxygen Flow Rate (L/min) [1 ( 4 Initial Baseline)] Oxygen Flow Rate (L/min) 4 Oxygen Delivery Method [3] Nasal Cannula Oxygen Delivery Method [2] Nasal Cannula Oxygen Delivery Method [1 ( Nasal Cannula Initial Baseline)] Oxygen Delivery Method Nasal Cannula Weight: 73 kg Body Mass Index (BMI) 27.6 Intake & Output: Intake and Output for Last 24 Hours 04/01/23 04/02/23 04/03/23 23:59 23:59 23:59 Intake Total 3690.42 / 3690.42 4140.83 / 4140.83 1170 / 1170 Output Total 2550 / 2550 3105 / 3105 1300 / 1300 Balance 1140.42 / 1140.42 1035.83 / 1035.83 -130 / -130 Medical Nutrition Assessment Dietitian: Malnutrition Criteria Met Start: 03/23/23 10:09 Freq: Status: Active Protocol: Document 04/02/23 11:48 AG (Rec: 04/02/23 11:49 AG [id number]) Nutrition Malnutrition Evidence of Malnutrition Exists Yes Malnutrition (severe): Acute Illness/Injury Evidenced By Suboptimal Energy Intake ( Severe),Weight Loss (Severe) Clinical Problem Biting/Chewing Difficulty Etiology related to debility Signs/Symptoms as evidenced by need for pureed diet Status Active Problem Acute Disease or Injury Related Malnutrition Etiology severe acute on likely chronic malnutrition related to inadequate energy intake Signs/Symptoms as evidenced by PO intake meeting <50% of estimated energy needs, unintentional 2% wt loss < 1 week Status Active Problem Altered Nutrient-Related Laboratory Values Etiology related to CHRIST on CKD stage III, dehydration Signs/Symptoms as evidenced by BUN 46, creatinine 3.02, sodium 150 Status Active Problem Recommendation Dietitian Recommendations/Changes continue regular diet given evidence of malnutrition, texture/consistency per AMUSEMENT CENTRE MANAGER; will continue glucerna and magic cup w/meals Lab / Micro Data 04/03/23 05:55 04/03/23 05:55 Labs: Laboratory Results - last 24 hr 04/02/23 11:30: POC Glucose 158 H 04/02/23 13:46: Fluid Source THORACENTESIS, Fluid Color YELLOW, Fluid Appearance TURBID, Fluid WBC 306.400, Fluid RBC 0.060, Fluid Tot Cell Count 309.900, Fld Polynuclear WBCs # 183.642, Fld Polynuclear WBCs % 73.1, Fluid Mononuclear WBCs 67.448, Fld Mononuclear WBCs % 26.9, Fluid Neutrophils 96, Fluid Other Cells 4, Fl Pathologist Comment May follow, Fluid Glucose 5 L*, Fluid Total Protein 3.9, Fluid LDH > 4000, Fluid Comment 2 SEE COMMENT 04/02/23 16:40: POC Glucose 267 H 04/02/23 21:16: POC Glucose 256 H 04/03/23 02:31: POC Glucose 139 H 04/03/23 05:23: POC Glucose 166 H 04/03/23 05:55: WBC 17.9 H, RBC 2.40 L, Hgb 8.2 L, Hct 26.6 L, MCV 110.8 H, MCH 34.2 H, MCHC 30.8 L, RDW Std Deviation 67.2 H, RDW Coeff of Merry 16.8 H, Plt Count 173, MPV 12.3 H, Neut % (Auto) Not Reportable, Absolute Neuts (auto) 12.1 H, Absolute Lymphs (auto) 1.43, Total Counted 100, Neutrophils % (Manual) 58, Band Neutrophils % 10 H, Lymphocytes % (Manual) 8 L, Monocytes % (Manual) 15 H, Eosinophils % (Manual) 2, Metamyelocytes % 2 H, Myelocytes % 4 H, Promyelocytes % 1 H, Diff Path Review May , Platelet Estimate ADEQUATE, Anisocytosis 1+, Macrocytosis 2+, Sodium 149 H, Potassium 4.8, Chloride 123 H, Carbon Dioxide 22.0, Anion Gap 4 L, BUN 42 H, Creatinine 2.97 H, Estim Creat Clear Calc 16.61, Est GFR (MDRD) Af Amer 26 L, Est GFR (MDRD) Non-Af 22 L, BUN/Creatinine Ratio 14.1, Glucose 167 H, Calcium 8.8 Micro: Microbiology 03/22/23 20:57 Blood Culture (Wb) - Anticubital Right Blood Culture - Final No growth in 5 days. 03/22/23 22:22 Blood Culture (Wb) - Right Forearm Blood Culture - Final No growth in 5 days. 03/23/23 05:25 Sputum, Expectorated/Coughed Gram Stain - Final 03/23/23 05:25 Sputum, Expectorated/Coughed Respiratory Culture - Final Enterobacter cloacae complex 03/22/23 16:40 Urine, Clean Catch Urine Culture - Final Culture exhibits no growth. 03/22/23 16:40 Urine, Clean Catch Legionella Antigen - Final 03/22/23 16:40 Urine, Clean Catch Streptococcus pneumoniae Antigen (M - Final 03/22/23 20:50 Mucosa - Nasopharyngeal Coronavirus COVID-19 PCR - Final 03/22/23 20:50 Mucosa - Nasopharyngeal Respiratory Panel (PCR) - Final 03/22/23 16:59 Nasal Secretion SARS-CoV-2 & FLU Antigen (Rapid) - Final Radiography Diagnostic Testing: Radiology Impression Thoracentesis Ultrasound 04/01/23 13:44 IMPRESSION: Ultrasound-guided right thoracentesis. Electronically Signed: Davie Scott MD at 14:55 EDT , Chest X-Ray 04/02/23 13:55 IMPRESSION: Status post right thoracentesis. No evidence of pneumothorax. Electronically Signed: Davie Scott MD at 14:35 EDT , Chest CT 04/02/23 16:46 IMPRESSION: Persistent moderate-sized loculated right-sided pleural effusion worrisome for empyema with an air-fluid loculation laterally and a loculation within the major fissure. Associated right lower lobe atelectasis or pneumonia. Electronically Signed: John Greene MD at 21:39 EDT , Physical Exam Const Constitutional Narrative: pleasantly confused. Hard of hearing. HEENT head/scalp atraumatic and moist oral mucous membranes Resp normal respiratory effort and no retractions Cardio regular rate, regular rhythm, S1 normal heart sound and S2 normal heart sound GI normal to inspection, nondistended, normoactive bowel sounds, soft to palpation, non-tender and non-distended Neuro oriented x3 and moves all extremities Assessment & Plan Assessment/Plan (1) Pleural effusion, right: PLAN: Likely an empyema loculated. I supect due to chronic aspiration. On broad spectrum abx with pip/tazo. Thoracentesis attempted on the , but was unable to be safely performed due to confusion. Reattempted successfully on the . It was loculated. Preliminary exudative. Repeat chest CT showed persistent moderate-sized loculated right sided pleural effusion worrisome for empyema w an air-fluid loculation laterally and a localatoin w/i the major fissure. I personally reviewed and it appears worse than CT on 03/22. I discussed with the patient's today. I told her that this appears to be an empyema and it has gotten worse despite being on antibiotics. I told her that the definitive management would be referral to a tertiary facility to be evaluated by cardiothoracic surgery for what could include decortication. The other option would be supportive management with antibiotics and when the patient invariably gets worse then to proceed with hospice. I also explained that if patient does have surgery he would likely have chest tubes and, given his dementia, he may not thrive. I told her I do not know definitively how he would respond to that but without definitive treatment the infection will get worse. She wishes for him to remain here and not be transferred and understands that the risk of the infection will likely get worse without surgical intervention. Plan is to continue with antibiotics and when he does get worse proceed with hospice services. (2) DKA (diabetic ketoacidoses): QUALIFIERS: Diabetes mellitus complication detail: without coma Diabetes mellitus type: type 2 Qualified Code(s): E11.10 - Type 2 diabetes mellitus with ketoacidosis without coma PLAN: POA. Was on insulin gtt, but since transitioned off. history of type 2 diabetes Initiated on insulin drip on admission and admitted to the ICU. Hemoglobin A1c of 12.4%. Had issues with hypogylcemia on 04/01, so glargine decreased from 20, to 10 BID. Glargine 10 BID. Continue SSI. (3) Metabolic encephalopathy: PLAN: Acute metabolic encephalopathy, improving Suspected secondary to acute infection as above with known underlying blindness and difficulty hearing. Unclear if patient has underlying dementia as well. Waxes and wanes, but overall confused. Complicated by profound presbycusis. (4) Atrial fibrillation: PLAN: New onset atrial fibrillation Echo shows an EF of 55%. DC heparin gtt. Start apixaban 2.5 BID. Follows with cardiology outpatient, can continue outpatient follow-up for now. Suspect new onset A-fib is primarily secondary to acute infection. Monitor telemetry. 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 Leveling off. FENa 1.18%. Renal ultrasound negative. PVR IVF. Nephrology following. (6) Debility: PLAN: PT/OT/case management following. Lives at home with his . (7) Hypernatremia: PLAN: Ongoing Continue 0.45% NS. (8) Dysphagia: PLAN: Likely acute on chronic ST eval. Recommending Puree textures, thin liquids, small bites and sips, liquid by teaspoon only HOB 90 degrees. Total feed. PLAN: Plan Chronic conditions: * Chronic hypoxic respiratory failure on home 3 L nasal cannula? Secondary to previous COVID infection. Chest x-ray on admit showed interstitial fibrosis that was stable, as well as acute loculated effusion as noted above. Continue supplemental oxygen, wean as able. Treat pneumonia as noted above. Continue home inhalers. * Hypertension: Holding home losartan and Coreg for now, restart as able. * Hard of hearing: Ensure patient has hearing aids in as much as able. * Blindness: Per history. Complicates treatment. DVT prophylaxis: not indicated as on apixaban. CODE STATUS: Discussed with the patient on April 03. Patient now DNR Comfort Care arrest. Disposition: TBD. Since patient not being transferred to tertiary facility, tentatively look at going to a fpc facility for further rehab. [facility] with the catch that the patient may likely get worse with worsening empyema. Greater than 50 minutes of which greater than 50% of time was discussing with the patient's at bedside about his condition, the worsening empyema, the options for the treatment versus conservative management and transition to hospice. Charges/Coding Visit Charges Inpatient E&M: 51725 Subs Hosp L3
[2023-04-03] MEDS: APIXABAN 2.5 MG TABLET (WCH) PO ×2 (08:30→22:27)
[2023-04-03] MEDS: Pantoprazole Sodium 40 MG Tablet PO (08:30)
[2023-04-03] MEDS: Insulin Glargine-YFGN 100 UNIT/ML Pen 10 UNIT SC ×2 (08:30→22:33)
[2023-04-03] MEDS: Potassium Chloride Oral Tablet 20 MEQ 40 MEQ PO (08:30)
[2023-04-03] MEDS: NYSTATIN 500,000 UNIT/5 ML UDC 500000 UNIT PO ×3 (08:30→22:26)
[2023-04-03] MEDS: Piperacil/Tazobactam 3.375 GM in 0.9% Normal Saline (50mL MB+) 50 ML IV ×2 (08:32→22:25)
[2023-04-03 09:15] VITALS: BP 121/78; PULSE 95; RESP 18; TEMP 36.6; O2SAT 94
--- NOTE | 2023-04-03 09:34 | CASEMGMT ---
Insurance review for hospitals In-network with?[employer] PPO insurance if transfer is recommended is as follows:. [facility], [place], [facility], [facility], [facility], [facility], [facility], [facility]), and . Elma Medina, Discharge Planning Asst.
--- NOTE | 2023-04-03 09:41 | SP.MBSS_ITS ---
Modified Barium Swallow Patient Information Study Date: 04/03/23 Study Time: 09:00 Direct Billable Minutes: 88 Total Minutes procedure & reportin Diagnosis: Dysphagia R13.10, Pleural effusion J90 Referring Physician: Carlos Lozoya Reason for Referral: Objectively assess swallow function, assess risk for aspiration, and determine recommendations for least restrictive diet textures and compensatory strategies to improve safety of swallow. Medical History: PMH: CHF, Acute respiratory failure with hypercapnia, CKD, DM type II, HTN, metabolic encephalopathy with hyperglycemia. Jude Sommers ia an 82-year-old male with PMH who was brought to [facility] ED by EMS for being sick 2-3 weeks. Associated symptoms were generalized weakness, reduced activity, loss of appetite, and confusion. In ED, chest x-ray was done 1 view shows faint infiltrates in right middle lobe. CT chest showed loculated right pleural effusion with associated atelectasis. He was admitted to ICU. During stay, he has been managed for Type 2 DM with ketoacidosis without coma, Hyperosmolality and hypernatremia, Metabolic encephalopathy, Afib, Pleural effusion, Acute kidney failure, CKD, Dysphagia, and malaise (03/22/23). Initially, the patient was seen by speech therapy and placed on regular textures / thin liquids. He was downgraded throughout stay, first to minced and moist / thin liquids, then to purees / thin liquids. He was recommended for MBSS as he appeared to have worsening diet tolerance, especially with coughing with thin liquids, during stay. Current Diet Ordered: Puree textures / Thin liquids by tsp Dentition: Natural Teeth, Decay and Missing Teeth Mental Status: Impaired (confused) Respiratory Status: Oxygenating on 4L/M nasal cannula Penetration-Aspiration Scale Penetration-Aspiration Scale: OBJECTIVE ASSESSMENT OF SWALLOW FUNCTION (QUANTITATIVE ? PER TRIAL): PENETRATION / ASPIRATION SCALE (WU): 1 = does not enter airway 2 = enters airway/above vocal folds/ejected 3 = enters airway/above vocal folds/not ejected 4 = enters airway/contacts vocal folds/ejected 5 = enters airway/contacts vocal folds/not ejected 6 = enters airway/below vocal folds/ejected 7 = enters airway/below vocal folds/not ejected despite effort 8 = enters airway/below vocal folds/no effort VIDEOFLOROSCOPIC SCALE SCORE (WU): Grade I = aspiration of material that has penetrated into the laryngeal vestibule, intact cough reflex Grade II = aspiration < 10 % of the bolus, intact cough reflex Grade III = aspiration of < 10 % of the bolus, reduced cough reflex or aspiration of > 10 % of the bolus, intact cough reflex Grade IV = aspiration of > 10 % of the bolus, reduced cough reflex Penetration-Aspiration Scale Score Thin Liquids via 1/2 tsp: Result: 1= does not enter airway Thin Liquid via teaspoon: Result: 1= does not enter airway Thin liquids by small single cup sip: Result: 1= does not enter airway [place]/mildly thick by small single cup sip: Result: 1= does not enter airway Pudding via teaspoon with esophageal screen: Result: 1= does not enter airway Thin liquids by small single straw sip: Result: 1= does not enter airway Thin liquids by small single straw sip Trial 2: Result: 1= does not enter airway Oral Phase Labial Seal: Interlabial escape, no progression to anterior lip Tongue Control During Bolus Hold: Posterior escape of greater than half of bolus Bolus Transport/Lingual Motion: Slowed tongue motion Oral Residue: Residue collection on oral structures Pharyngeal Phase Initiation of Pharyngeal Swallow: Bolus head in pyriforms Soft Palate Elevation: No bolus between soft palate and pharyngeal wall Laryngeal Elevation: Comp. Superior move thyroid cart w/comp. apprx arytenoid cart-epig pet Anterior Hyoid Excursion: Partial anterior movement (minimal) Epiglottic Movement: Partial inversion (Inconsistent epiglottic inversion) Laryngeal Vestibule Closure at Height of Swallow: Complete; no air/contrast in laryngeal vestibule Pharyngeal Stripping Wave: Present - diminished Pharyngoesophageal Segment Opening: Parital distension and partial duration; parital obstruction of flow Tongue Base Retraction: Narrow column of contrast between tongue base & post. pharyngeal wall Pharyngeal Residue: Collection of residue within or on pharyngeal structures Esophageal Phase Esophageal Clearance: Complete clearance Diagnosis/Impression Diagnosis: Moderate-Severe oral dysphagia R13.11, Mild pharyngeal dysphagia R13.13 Impression: The oral phase is marked by... -Severe deficits in mastication and A-P transport of solids observed at bedside by this MAINTENANCE MACHINIST. Did not attempt cookie as the MAINTENANCE MACHINIST had to clear cookie residues from FOM and buccal cavity when providing the patient softened and crushed cookie. -Decreased bolus control with posterior loss of >1/2 of thin liquid boluses to the pharynx prior to swallow onset. -Slowed tongue motion for A-P transport of liquids during the study. The pharyngeal phase is marked by... -Poor anterior hyoid excursion; however, the patient demonstrated good laryngeal elevation and presented with no laryngeal penetration or aspiration during the study. He did present with coughing after the swallow 2X, but, when fluoroscopy was turned back on, both his laryngeal vestibule and trachea were clear of barium contrast. -Mild pharyngeal residues after the swallow due to decreased tongue base retraction and pharyngeal stripping wave. He would intermittently complete double swallows to clear residues. When cued for a double swallow, he was unable to complete. Recommendations Diet: Puree Textures and Thin Liquids Compensatory Strategies: Small Bites, Small Sips, Slow Rate (Sips one at a time. If using straws, pinch straw to control rate.), Sitting upright and Remain sitting upright for 30 minutes after PO intake Supervision: Total Feed Recommend Repeat Modified Barium Swallow: TBD Need for Skilled Speech Therapy Services: Yes Comment: Will recommend the patient for continued dysphagia therapy to address deficits in oropharyngeal swallow function. Will recommend the patient for oropharyngeal strengthening to improve lingual control/coordination, tongue base retraction, pharyngeal contraction, and hyoid excursion (lingual coordination and resistance exercises, Corin, effortful, CTAR). The patient would benefit from thorough education regarding diet recommendations and recommended compensatory strategies. Education Completed: 1. Described result of evaluation. and 7. Pt requires further education on strategies & risks. Status Active ST Patient: Active Contact Information [facility]:: Debbie Macdonald M.A. [facility]-MAINTENANCE MACHINIST Speech-Language Pathologist [facility] [address] [place] [address] [email or web address] [phone]
--- NOTE | 2023-04-03 09:47 | PCM.PN.REN ---
Documented by User: JAMILA Llanos 04/03/23 09:52 Subjective Subjective Resting in bed, alert to name. No apparent distress Objective Data Objective Data Vital Signs: Vital Signs Temp Pulse Resp BP Pulse Ox O2 Del Method O2 Flow Rate 97.4 F L 70 24 H 135/78 H 93 Nasal Cannula 4 04/03/23 02:57 04/03/23 02:57 04/03/23 02:57 04/03/23 02:57 04/03/23 07:30 04/03/23 07:30 04/03/23 07:30 FiO2 97 04/02/23 08:28 Oxygen Flow Rate (L/min) [3] 4 Oxygen Flow Rate (L/min) [2] 4 Oxygen Flow Rate (L/min) [1 ( 4 Initial Baseline)] Oxygen Flow Rate (L/min) 4 Oxygen Delivery Method [3] Nasal Cannula Oxygen Delivery Method [2] Nasal Cannula Oxygen Delivery Method [1 ( Nasal Cannula Initial Baseline)] Oxygen Delivery Method Nasal Cannula Weight: 73 kg Body Mass Index (BMI) 27.6 Intake & Output: Intake and Output for Last 24 Hours 04/01/23 04/02/23 04/03/23 23:59 23:59 23:59 Intake Total 3690.42 / 3690.42 4140.83 / 4140.83 1170 / 1170 Output Total 2550 / 2550 3105 / 3105 1300 / 1300 Balance 1140.42 / 1140.42 1035.83 / 1035.83 -130 / -130 Medical Nutrition Assessment Dietitian: Malnutrition Criteria Met Start: 03/23/23 10:09 Freq: Status: Active Protocol: Document 04/02/23 11:48 AG (Rec: 04/02/23 11:49 [id number]) Nutrition Malnutrition Evidence of Malnutrition Exists Yes Malnutrition (severe): Acute Illness/Injury Evidenced By Suboptimal Energy Intake ( Severe),Weight Loss (Severe) Clinical Problem Biting/Chewing Difficulty Etiology related to debility Signs/Symptoms as evidenced by need for pureed diet Status Active Problem Acute Disease or Injury Related Malnutrition Etiology severe acute on likely chronic malnutrition related to inadequate energy intake Signs/Symptoms as evidenced by PO intake meeting <50% of estimated energy needs, unintentional 2% wt loss < 1 week Status Active Problem Altered Nutrient-Related Laboratory Values Etiology related to CHRIST on CKD stage III, dehydration Signs/Symptoms as evidenced by BUN 46, creatinine 3.02, sodium 150 Status Active Problem Recommendation Dietitian Recommendations/Changes continue regular diet given evidence of malnutrition, texture/consistency per ELECTRIC PLATER; will continue glucerna and magic cup w/meals Lab / Micro Data 04/03/23 05:55 04/03/23 05:55 Labs: Laboratory Results - last 24 hr 04/02/23 11:30: POC Glucose 158 H 04/02/23 13:46: Fluid Source THORACENTESIS, Fluid Color YELLOW, Fluid Appearance TURBID, Fluid WBC 306.400, Fluid RBC 0.060, Fluid Tot Cell Count 309.900, Fld Polynuclear WBCs # 183.642, Fld Polynuclear WBCs % 73.1, Fluid Mononuclear WBCs 67.448, Fld Mononuclear WBCs % 26.9, Fluid Neutrophils 96, Fluid Other Cells 4, Fl Pathologist Comment May follow, Fluid Glucose 5 L*, Fluid Total Protein 3.9, Fluid LDH > 4000, Fluid Comment 2 SEE COMMENT 04/02/23 16:40: POC Glucose 267 H 04/02/23 21:16: POC Glucose 256 H 04/03/23 02:31: POC Glucose 139 H 04/03/23 05:23: POC Glucose 166 H 04/03/23 05:55: WBC 17.9 H, RBC 2.40 L, Hgb 8.2 L, Hct 26.6 L, MCV 110.8 H, MCH 34.2 H, MCHC 30.8 L, RDW Std Deviation 67.2 H, RDW Coeff of Merry 16.8 H, Plt Count 173, MPV 12.3 H, Neut % (Auto) Not Reportable, Absolute Neuts (auto) 12.1 H, Absolute Lymphs (auto) 1.43, Total Counted 100, Neutrophils % (Manual) 58, Band Neutrophils % 10 H, Lymphocytes % (Manual) 8 L, Monocytes % (Manual) 15 H, Eosinophils % (Manual) 2, Metamyelocytes % 2 H, Myelocytes % 4 H, Promyelocytes % 1 H, Diff Path Review May foll, Platelet Estimate ADEQUATE, Anisocytosis 1+, Macrocytosis 2+, Sodium 149 H, Potassium 4.8, Chloride 123 H, Carbon Dioxide 22.0, Anion Gap 4 L, BUN 42 H, Creatinine 2.97 H, Estim Creat Clear Calc 16.61, Est GFR (MDRD) Af Amer 26 L, Est GFR (MDRD) Non-Af 22 L, BUN/Creatinine Ratio 14.1, Glucose 167 H, Calcium 8.8 Micro: Microbiology 03/22/23 20:57 Blood Culture (Wb) - Anticubital Right Blood Culture - Final No growth in 5 days. 03/22/23 22:22 Blood Culture (Wb) - Right Forearm Blood Culture - Final No growth in 5 days. 03/23/23 05:25 Sputum, Expectorated/Coughed Gram Stain - Final 03/23/23 05:25 Sputum, Expectorated/Coughed Respiratory Culture - Final Enterobacter cloacae complex 03/22/23 16:40 Urine, Clean Catch Urine Culture - Final Culture exhibits no growth. 03/22/23 16:40 Urine, Clean Catch Legionella Antigen - Final 03/22/23 16:40 Urine, Clean Catch Streptococcus pneumoniae Antigen (M - Final 03/22/23 20:50 Mucosa - Nasopharyngeal Coronavirus COVID-19 PCR - Final 03/22/23 20:50 Mucosa - Nasopharyngeal Respiratory Panel (PCR) - Final 03/22/23 16:59 Nasal Secretion SARS-CoV-2 & FLU Antigen (Rapid) - Final Radiography Diagnostic Testing: Radiology Impression Thoracentesis Ultrasound 04/01/23 13:44 IMPRESSION: Ultrasound-guided right thoracentesis. Electronically Signed: Davie Scott MD at 14:55 EDT , Chest X-Ray 04/02/23 13:55 IMPRESSION: Status post right thoracentesis. No evidence of pneumothorax. Electronically Signed: Davie Scott MD at 14:35 EDT , Chest CT 04/02/23 16:46 IMPRESSION: Persistent moderate-sized loculated right-sided pleural effusion worrisome for empyema with an air-fluid loculation laterally and a loculation within the major fissure. Associated right lower lobe atelectasis or pneumonia. Electronically Signed: John Greene MD at 21:39 EDT , Physical Exam Narrative Alert to name, hard of hearing, no apparent distress S1, S2, rhythm irregular rate controlled Lung sounds coarse abdomen soft, nontender Trace lower extremity edema Assessment & Plan Assessment/Plan (1) CHRIST (acute kidney injury): (2) Chronic kidney disease, stage 3b: (3) Hypernatremia: PLAN: Plan Impression/Plan: The patient is a 82-year-old man with past history of type 2 diabetes mellitus, hypertension, aortic stenosis status post SAVR, mitral valve insufficiency, pulmonary hypertension, and chronic kidney disease stage G3b. The patient presented to the hospital on 03/22/2023 with DKA and acute on chronic hypoxic respiratory failure with right pleural effusion. He also developed new onset atrial fibrillation during this hospitalization. Nephrology is following for CHRIST on CKD. - CHRIST on CKD stage G3b. Baseline serum creatinine appears to be around 1.7 to 1.8 mg/dL. 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 Serum creatinine was 2.67 mg/dL on admission (03/22/2023), improved to 1.9 mg/dL on 03/23, was on IVF and treating DKA. SCr 2.0 mg/dL on 03/24 and had been slowly rising between 03/24/2023 until 03/29/2023, SCr peaked 3.50 mg/dL on 03/29, today SCr 2.97mg/dL. Suspect CHRIST is secondary to ischemic ATN. Fortunately, serum creatinine has plateaued and slightly improved over last few days. He is on IVF. There is no need for kidney replacement therapy. Continue to hold losartan. - Hypokalemia; resolved - Hypernatremia may be due to prior polyuria (he made 3.1 L of urine without diuretic on 03/31/2023) and lack of oral intake. Patient is a total feed which limits ability to get water on his own. Encouraged staff to push free water. Sodium peaked 157 and has improved to 149. Holding off on D5W due to hyperglycemia, currently on NS at 125 mL an hour -Patient had thoracentesis yesterday with around 380 mL fluid removed -Possible transfer to tertiary center as CT chest without contrast worrisome for empyema Documented by User: Dr. Haleigh Caraballo MD 04/03/23 15:31 Objective Data Lab / Micro Data 04/03/23 05:55 04/03/23 05:55 Assessment & Plan Assessment/Plan (1) CHRIST (acute kidney injury): (2) Chronic kidney disease, stage 3b: (3) Hypernatremia: PLAN: Plan Impression/Plan: The patient is a 82-year-old man with past history of type 2 diabetes mellitus, hypertension, aortic stenosis status post SAVR, mitral valve insufficiency, pulmonary hypertension, and chronic kidney disease stage G3b. The patient presented to the hospital on 03/22/2023 with DKA and acute on chronic hypoxic respiratory failure with right pleural effusion. He also developed new onset atrial fibrillation during this hospitalization. Nephrology is following for CHRIST on CKD. - CHRIST on CKD stage G3b. Baseline serum creatinine appears to be around 1.7 to 1.8 mg/dL. 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 Serum creatinine was 2.67 mg/dL on admission (03/22/2023), improved to 1.9 mg/dL on 03/23, was on IVF and treating DKA. SCr 2.0 mg/dL on 03/24 and had been slowly rising between 03/24/2023 until 03/29/2023, SCr peaked 3.50 mg/dL on 03/29, today SCr 2.97mg/dL. Suspect CHRIST is secondary to ischemic ATN. Fortunately, serum creatinine has plateaued and slightly improved over last few days. He is on IVF. There is no need for kidney replacement therapy. Continue to hold losartan. - Hypokalemia; resolved - Hypernatremia may be due to prior polyuria (he made 3.1 L of urine without diuretic on 03/31/2023) and lack of oral intake. Patient is a total feed which limits ability to get water on his own. Encouraged staff to push free water. Sodium peaked 157 and has improved to 149. Holding off on D5W due to hyperglycemia, currently on NS at 125 mL an hour -Patient had thoracentesis yesterday with around 380 mL fluid removed -Possible transfer to tertiary center as CT chest without contrast worrisome for empyema addendum seen and examined independently. dw hospitalist needs transfer in view of empyema
[2023-04-03 10:08] LABS: Pathologist Review Reviewed
[2023-04-03 10:08] LABS: Pathologist Review Reviewed
[2023-04-03 10:13] LABS: Pathologist Review Reviewed
[2023-04-03 11:12] LABS: Bedside Glucose 187 mg/dL (74-106)
[2023-04-03 15:15] VITALS: BP 136/74; PULSE 102; RESP 16; TEMP 36.8; O2SAT 94
[2023-04-03 17:44] LABS: Bedside Glucose 294 mg/dL (74-106)
[2023-04-03] MEDS: Budesonide Respules 0.5 MG/2 ML AMPUL.NEB. INHALATION (19:11)
[2023-04-03 19:12] VITALS: PULSE 104; RESP 24; O2SAT 88
[2023-04-03 21:15] VITALS: BP 128/75; PULSE 103; RESP 18; TEMP 36.9; O2SAT 97
[2023-04-03 23:07] LABS: Bedside Glucose 270 mg/dL (74-106)
[2023-04-04] VITALS (9 sets, daily range): BP systolic 110–129; BP diastolic 70–78; PULSE 84–104; RESP 16–32; TEMP 36.1–37.1; O2SAT 90–99; BMI 27.9
[2023-04-04] MEDS: 0.45% Normal Saline 1,000 ML 125 ML IV ×2 (03:04→11:06)
[2023-04-04 03:26] LABS: Bedside Glucose 129 mg/dL (74-106)
[2023-04-04] MEDS: Budesonide Respules 0.5 MG/2 ML AMPUL.NEB. INHALATION ×2 (07:02→20:08)
[2023-04-04 07:24] LABS: Bedside Glucose 98 mg/dL (74-106)
--- NOTE | 2023-04-04 08:49 | PN.HOSP_ITS ---
Reason for Visit Reason for Visit: Diagnoses Type 2 diabetes mellitus with ketoacidosis without coma (03/22/23) Hyperosmolality and hypernatremia (03/22/23) Metabolic encephalopathy (03/22/23) Unspecified atrial fibrillation (03/22/23) Pleural effusion, not elsewhere classified (03/22/23) Acute kidney failure, unspecified (03/22/23) Chronic kidney disease, stage 2 (mild) (03/22/23) Chronic kidney disease, stage 3b (03/22/23) Dysphagia, unspecified (03/22/23) Other malaise (03/22/23) Objective Data Objective Data Vital Signs: Vital Signs Temp Pulse Resp BP Pulse Ox O2 Del Method O2 Flow Rate 98.7 F 93 22 H 128/73 H 92 Nasal Cannula 3 04/04/23 08:15 04/04/23 08:15 04/04/23 08:15 04/04/23 08:15 04/04/23 08:15 04/04/23 08:25 04/04/23 08:25 FiO2 97 04/02/23 08:28 Oxygen Flow Rate (L/min) [3] 4 Oxygen Flow Rate (L/min) [2] 4 Oxygen Flow Rate (L/min) [1 ( 4 Initial Baseline)] Oxygen Flow Rate (L/min) 3 Oxygen Delivery Method [3] Nasal Cannula Oxygen Delivery Method [2] Nasal Cannula Oxygen Delivery Method [1 ( Nasal Cannula Initial Baseline)] Oxygen Delivery Method Nasal Cannula Weight: 162 lb 11.218 oz Body Mass Index (BMI) 27.9 Intake & Output: Intake and Output for Last 24 Hours 04/02/23 04/03/23 04/04/23 23:59 23:59 23:59 Intake Total 4140.83 / 4140.83 3316.25 / 3316.25 150 / 150 Output Total 3105 / 3105 3230 / 3230 750 / 750 Balance 1035.83 / 1035.83 86.25 / 86.25 -600 / -600 Medical Nutrition Assessment Dietitian: Malnutrition Criteria Met Start: 03/23/23 10:09 Freq: Status: Active Protocol: Document 04/02/23 11:48 AG (Rec: 04/02/23 11:49 AG [id number]) Nutrition Malnutrition Evidence of Malnutrition Exists Yes Malnutrition (severe): Acute Illness/Injury Evidenced By Suboptimal Energy Intake ( Severe),Weight Loss (Severe) Clinical Problem Biting/Chewing Difficulty Etiology related to debility Signs/Symptoms as evidenced by need for pureed diet Status Active Problem Acute Disease or Injury Related Malnutrition Etiology severe acute on likely chronic malnutrition related to inadequate energy intake Signs/Symptoms as evidenced by PO intake meeting <50% of estimated energy needs, unintentional 2% wt loss < 1 week Status Active Problem Altered Nutrient-Related Laboratory Values Etiology related to CHRIST on CKD stage III, dehydration Signs/Symptoms as evidenced by BUN 46, creatinine 3.02, sodium 150 Status Active Problem Recommendation Dietitian Recommendations/Changes continue regular diet given evidence of malnutrition, texture/consistency per LEARNING SERVICES COORDINATOR; will continue glucerna and magic cup w/meals Lab / Micro Data 04/03/23 05:55 04/03/23 05:55 Labs: Laboratory Results - last 24 hr 03/31/23 05:56: Diff Path Review Reviewed 04/01/23 05:11: Diff Path Review Reviewed 04/02/23 04:30: Diff Path Review Reviewed 04/03/23 10:51: POC Glucose 187 H 04/03/23 17:07: POC Glucose 294 H 04/03/23 22:32: POC Glucose 270 H 04/04/23 03:06: POC Glucose 129 H 04/04/23 07:00: POC Glucose 98 Micro: Microbiology 03/22/23 20:57 Blood Culture (Wb) - Anticubital Right Blood Culture - Final No growth in 5 days. 03/22/23 22:22 Blood Culture (Wb) - Right Forearm Blood Culture - Final No growth in 5 days. 03/23/23 05:25 Sputum, Expectorated/Coughed Gram Stain - Final 03/23/23 05:25 Sputum, Expectorated/Coughed Respiratory Culture - Final Enterobacter cloacae complex 03/22/23 16:40 Urine, Clean Catch Urine Culture - Final Culture exhibits no growth. 03/22/23 16:40 Urine, Clean Catch Legionella Antigen - Final 03/22/23 16:40 Urine, Clean Catch Streptococcus pneumoniae Antigen (M - Final 03/22/23 20:50 Mucosa - Nasopharyngeal Coronavirus COVID-19 PCR - Final 03/22/23 20:50 Mucosa - Nasopharyngeal Respiratory Panel (PCR) - Final 03/22/23 16:59 Nasal Secretion SARS-CoV-2 & FLU Antigen (Rapid) - Final Physical Exam Narrative General: Alert, Oriented x3, Cooperative. Looks emaciated and sick. HEENT: Bilateral hearing impairment atraumatic, PERRLA, EOMI, Normocephalic Oral: Oral mucosa dry. No Gingival or Mucosal Lesions/ Ulcerations Neck: Supple, No JVD, Negative Carotid Bruits Lungs: Dyspnea at rest. Shallow breathing, tachypneic. Air entry diminished in bilateral lung predominantly in right lung base. Cardiovascular: A-fib heart rate 97/min, Normal S1, Normal S2, No murmurs Abdomen: Bowel Sounds Present, Soft, Non Tender, Non-Distended : No renal angle tenderness. No suprapubic tenderness. Extremities: Bilateral leg pitting edema, Capillary Refill Less than 3 Seconds Skin: No rashes, No breakdown Musculoskeletal: No Tenderness to Palpation of Joints or Extremities. ROM restricted. Degenerative arthritis Neurological: Cranial nerves II-XII grossly intact, DTR 2+/4. No acute focal neurological deficit. Psych/Mental Status: Flat affect. Assessment & Plan Assessment/Plan (1) Pleural effusion, right: PLAN: Likely an empyema loculated. I supect due to chronic aspiration. On broad spectrum abx with pip/tazo. Thoracentesis attempted on the , but was unable to be safely performed due to confusion. Reattempted successfully on the . It was loculated. Preliminary exudative. Repeat chest CT showed persistent moderate-sized loculated right sided pleural effusion worrisome for empyema w an air-fluid loculation laterally and a localatoin w/i the major fissure. I personally reviewed and it appears worse than CT on 03/22. Previous hospitalist Dr. Gonzalez discussed with the patient's on 04/03 that UTI appears empyema and it has gotten worse despite being on antibiotics. Transfer to tertiary care for definitive management was discussed to be related by cardiothoracic surgeon for VATS or further decortication/chest tube which would be high perioperative risk seeing his patient general condition and multiple comorbidities. Other option is conservative management with IV antibiotics and if patient gets worse proceed with hospice. Patient and wished him to stay here and she understands the risk of infection getting worse without surgical intervention. Continue IV antibiotics. I told her that the definitive management would be referral to a tertiary facility to be evaluated by cardiothoracic surgery for what could include decortication. The other option would be supportive management with antibiotics and when the patient invariably gets worse then to proceed with hospice. I also explained that if patient does have surgery he would likely have chest tubes and, given his dementia, he may not thrive. I told her I do not know definitively how he would respond to that but without definitive treatment the infection will get worse. She wishes for him to remain here and not be transferred and understands that the risk of the infection will likely get worse without surgical intervention. Plan is to continue with antibiotics and when he does get worse proceed with hospice services. Patient was evaluated medical or surgical instrument maker last seen on 03/30/2023. Conservative management. IV antibiotics signed off. (2) DKA (diabetic ketoacidoses): QUALIFIERS: Diabetes mellitus complication detail: without coma Diabetes mellitus type: type 2 Qualified Code(s): E11.10 - Type 2 diabetes mellitus with ketoacidosis without coma PLAN: POA. Was on insulin gtt, but since transitioned off. history of type 2 diabetes Initiated on insulin drip on admission and admitted to the ICU. Hemoglobin A1c of 12.4%. Had issues with hypogylcemia on 04/01, so glargine decreased from 20, to 10 BID. Glargine 10 BID. Continue SSI. (3) Metabolic encephalopathy: PLAN: Acute metabolic encephalopathy, improving Suspected secondary to acute infection as above with known underlying blindness and difficulty hearing. Unclear if patient has underlying dementia as well. Waxes and wanes, but overall confused. Complicated by profound presbycusis. (4) Atrial fibrillation: QUALIFIERS: Atrial fibrillation type: paroxysmal Qualified Code(s): I48.0 - Paroxysmal atrial fibrillation PLAN: New onset atrial fibrillation Echo shows an EF of 55%. DC heparin gtt. Start apixaban 2.5 BID. Follows with cardiology outpatient, can continue outpatient follow-up for now. Suspect new onset A-fib is primarily secondary to acute infection. Monitor telemetry. 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 Leveling off. FENa 1.18%. Renal ultrasound negative. PVR Discussed with the shorthand reporter. IV fluid changed from half-normal saline to D5W (6) Debility: PLAN: PT/OT/case management following. Lives at home with his . (7) Hypernatremia: PLAN: Ongoing Continue 0.45% NS. (8) Dysphagia: PLAN: Likely acute on chronic ST eval. Recommending Puree textures, thin liquids, small bites and sips, liquid by teaspoon only HOB 90 degrees. Total feed. PLAN: Plan Clinical Impression(s) from Imaging Studies Chest X-Ray 03/22/23 16:42 IMPRESSION: No acute pulmonary process Electronically Signed: Nathaniel Sow MD at 17:28 EDT , Brain CT 03/22/23 17:12 IMPRESSION: Chronic involutional changes of the brain. No acute hemorrhage, no interval change Electronically Signed: Nathaniel Sow MD at 17:29 EDT , Chest/Abdomen/Pelvis CT 03/22/23 17:55 IMPRESSION: Chronic interstitial changes in both lung connelly with interstitial edema, and a loculated right pleural effusion with associated atelectasis. 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 Consider short-term follow-up or additional imaging with ultrasound or contrasted study Small bowel ileus Retained stool in the colon Degenerative bony changes Electronically Signed: Nathaniel Sow MD at 19:08 EDT , Chest X-Ray 03/23/23 05:55 IMPRESSION: Right basilar atelectasis versus infiltrate and probable small right pleural effusion. Electronically Signed: Didier Daniel DO at 6:18 EDT , Chest Ultrasound 03/23/23 06:35 IMPRESSION: Not enough fluid for safe thoracentesis of the right pleural space. Electronically Signed: Davei Scott MD at 14:55 EDT , Echocardiogram 03/23/23 07:54 Interpretation Summary The estimated ejection fraction is 55 %. Unable to assess diastolic dysfunction. septal hypokinesis Ordering Physician: Silas Randolph Referring Physician: Berny Almanza Performed By: Jacqueline Kahn, RDCS, RVT Renal Ultrasound 03/26/23 09:20 IMPRESSION: No hydronephrosis. Bilateral renal cysts. Electronically Signed: Niki Rush MD at 13:26 EDT , Chest X-Ray 04/01/23 13:10 IMPRESSION: Increased size of right pleural effusion with a loculated appearance, possible empyema. Increased focal opacity in the right midlung from pneumonia or loculated effusion. Increased atelectasis or pneumonia of the right lung base. Electronically Signed: Anat Nguyen MD at 13:37 EDT , Thoracentesis Ultrasound 04/01/23 13:44 IMPRESSION: Ultrasound-guided right thoracentesis. Electronically Signed: Davie Scott MD at 14:55 EDT , Chest X-Ray 04/02/23 13:55 IMPRESSION: Status post right thoracentesis. No evidence of pneumothorax. Electronically Signed: Davie Scott MD at 14:35 EDT , Chest CT 04/02/23 16:46 IMPRESSION: Persistent moderate-sized loculated right-sided pleural effusion worrisome for empyema with an air-fluid loculation laterally and a loculation within the major fissure. Associated right lower lobe atelectasis or pneumonia. Electronically Signed: John Greene MD at 21:39 EDT , Charges/Coding Visit Charges Inpatient E&M: 56732 Subs Hosp L2
[2023-04-04] MEDS: Potassium Chloride Oral Tablet 20 MEQ 40 MEQ PO ×2 (09:35→16:38)
[2023-04-04] MEDS: APIXABAN 2.5 MG TABLET (WCH) PO ×2 (09:36→21:56)
[2023-04-04] MEDS: Insulin Glargine-YFGN 100 UNIT/ML Pen 10 UNIT SC ×2 (09:37→21:52)
[2023-04-04] MEDS: NYSTATIN 500,000 UNIT/5 ML UDC 500000 UNIT PO ×4 (09:37→21:55)
[2023-04-04] MEDS: Pantoprazole Sodium 40 MG Tablet PO (09:37)
[2023-04-04] MEDS: Piperacil/Tazobactam 3.375 GM in 0.9% Normal Saline (50mL MB+) 50 ML IV ×2 (09:41→21:43)
[2023-04-04 11:30] LABS: Bedside Glucose 150 mg/dL (74-106)
--- NOTE | 2023-04-04 11:43 | PCM.PN.REN ---
Subjective Subjective Resting in bed. Alert to name. No overnight events. Objective Data Objective Data Vital Signs: Vital Signs Temp Pulse Resp BP Pulse Ox O2 Del Method O2 Flow Rate 98.7 F 93 22 H 128/73 H 92 Nasal Cannula 3 04/04/23 08:15 04/04/23 08:15 04/04/23 08:15 04/04/23 08:15 04/04/23 08:15 04/04/23 08:25 04/04/23 08:25 FiO2 97 04/02/23 08:28 Oxygen Flow Rate (L/min) [3] 4 Oxygen Flow Rate (L/min) [2] 4 Oxygen Flow Rate (L/min) [1 ( 4 Initial Baseline)] Oxygen Flow Rate (L/min) 3 Oxygen Delivery Method [3] Nasal Cannula Oxygen Delivery Method [2] Nasal Cannula Oxygen Delivery Method [1 ( Nasal Cannula Initial Baseline)] Oxygen Delivery Method Nasal Cannula Weight: 73.8 kg Body Mass Index (BMI) 27.9 Intake & Output: Intake and Output for Last 24 Hours 04/02/23 04/03/23 04/04/23 23:59 23:59 23:59 Intake Total 4140.83 / 4140.83 3316.25 / 3316.25 1150 / 1150 Output Total 3105 / 3105 3230 / 3230 750 / 750 Balance 1035.83 / 1035.83 86.25 / 86.25 400 / 400 Medical Nutrition Assessment Dietitian: Malnutrition Criteria Met Start: 03/23/23 10:09 Freq: Status: Active Protocol: Document 04/02/23 11:48 AG (Rec: 04/02/23 11:49 AG [id number]) Nutrition Malnutrition Evidence of Malnutrition Exists Yes Malnutrition (severe): Acute Illness/Injury Evidenced By Suboptimal Energy Intake ( Severe),Weight Loss (Severe) Clinical Problem Biting/Chewing Difficulty Etiology related to debility Signs/Symptoms as evidenced by need for pureed diet Status Active Problem Acute Disease or Injury Related Malnutrition Etiology severe acute on likely chronic malnutrition related to inadequate energy intake Signs/Symptoms as evidenced by PO intake meeting <50% of estimated energy needs, unintentional 2% wt loss < 1 week Status Active Problem Altered Nutrient-Related Laboratory Values Etiology related to CHRIST on CKD stage III, dehydration Signs/Symptoms as evidenced by BUN 46, creatinine 3.02, sodium 150 Status Active Problem Recommendation Dietitian Recommendations/Changes continue regular diet given evidence of malnutrition, texture/consistency per PST MANAGER; will continue glucerna and magic cup w/meals Lab / Micro Data 04/03/23 05:55 04/03/23 05:55 Labs: Laboratory Results - last 24 hr 04/03/23 17:07: POC Glucose 294 H 04/03/23 22:32: POC Glucose 270 H 04/04/23 03:06: POC Glucose 129 H 04/04/23 07:00: POC Glucose 98 04/04/23 11:07: POC Glucose 150 H Micro: Microbiology 03/22/23 20:57 Blood Culture (Wb) - Anticubital Right Blood Culture - Final No growth in 5 days. 03/22/23 22:22 Blood Culture (Wb) - Right Forearm Blood Culture - Final No growth in 5 days. 03/23/23 05:25 Sputum, Expectorated/Coughed Gram Stain - Final 03/23/23 05:25 Sputum, Expectorated/Coughed Respiratory Culture - Final Enterobacter cloacae complex 03/22/23 16:40 Urine, Clean Catch Urine Culture - Final Culture exhibits no growth. 03/22/23 16:40 Urine, Clean Catch Legionella Antigen - Final 03/22/23 16:40 Urine, Clean Catch Streptococcus pneumoniae Antigen (M - Final 03/22/23 20:50 Mucosa - Nasopharyngeal Coronavirus COVID-19 PCR - Final 03/22/23 20:50 Mucosa - Nasopharyngeal Respiratory Panel (PCR) - Final 03/22/23 16:59 Nasal Secretion SARS-CoV-2 & FLU Antigen (Rapid) - Final Physical Exam Narrative Alert to name, hard of hearing, no apparent distress S1, S2, rhythm irregular rate controlled Diminished breath sounds. No rales or rhonchi abdomen soft, nontender Trace lower extremity edema Assessment & Plan Assessment/Plan (1) CHRIST (acute kidney injury): (2) Chronic kidney disease, stage 3b: (3) Hypernatremia: PLAN: Plan Impression/Plan: The patient is a 82-year-old man with past history of type 2 diabetes mellitus, hypertension, aortic stenosis status post SAVR, mitral valve insufficiency, pulmonary hypertension, and chronic kidney disease stage G3b. The patient presented to the hospital on 03/22/2023 with DKA and acute on chronic hypoxic respiratory failure with right pleural effusion. He also developed new onset atrial fibrillation during this hospitalization. Nephrology is following for CHRIST on CKD. - CHRIST on CKD stage G3b. Baseline serum creatinine appears to be around 1.7 to 1.8 mg/dL. 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 Serum creatinine was 2.67 mg/dL on admission (03/22/2023), improved to 1.9 mg/dL on 03/23, was on IVF and treating DKA. SCr 2.0 mg/dL on 03/24 and had been slowly rising between 03/24/2023 until 03/29/2023, SCr peaked 3.50 mg/dL on 03/29--> last SCr 2.97mg/dL. Suspect CHRIST is secondary to ischemic ATN. Fortunately, serum creatinine has plateaued and slightly improved on IVF. There is no need for kidney replacement therapy. Continue to hold losartan. - Hypernatremia may be due to prior polyuria (he made 3.1 L of urine without diuretic on 03/31/2023) and lack of oral intake. Patient is a total feed which limits ability to get water on his own. Encouraged staff to push free water. Sodium peaked 157 and has improved to 149 yesterday, no labs today. Since no further episodes of hyperglycemia we will change IV fluids to D5W for today. Labs ordered for tomorrow -Family decided for no transfer to tertiary center as CT chest without contrast worrisome for empyema. CODE STATUS is DNR CCA no intubation. Continuing IV Antibiotics for now
[2023-04-04 11:46] LABS: Bedside Glucose 159 mg/dL (74-106)
[2023-04-04] MEDS: Dextrose 5%-Water (1000mL Bag) 1,000 ML 100 ML IV ×2 (12:39→22:01)
[2023-04-04 13:24] LABS: Pathologist Comment/Body Fluid Reviewed
[2023-04-04 13:37] LABS: Pathologist Review Reviewed
[2023-04-04] MEDS: Menthol/Lanolin/Calamine/Znox 113 GM Tube 1 APPLIC TOPICAL ×2 (15:14→21:47)
[2023-04-04] MEDS: Insulin Lispro 100 UNIT/ML INSULN.PEN SC ×2 (16:37→21:51)
[2023-04-04 17:01] LABS: Bedside Glucose 324 mg/dL (74-106)
[2023-04-04 23:40] LABS: Bedside Glucose 297 mg/dL (74-106)
[2023-04-05] VITALS (17 sets, daily range): BP systolic 115–177; BP diastolic 68–96; PULSE 77–128; RESP 18–22; TEMP 36.2–37.2; O2SAT 86–100; BMI 28.0
[2023-04-05 04:11] LABS: Bedside Glucose 148 mg/dL (74-106)
[2023-04-05 05:30] LABS: Hematocrit 26.8 % (40-54); Hemoglobin 8.1 g/dL (13.0-16.5); Mean Corp Hgb Conc 30.2 g/dL (32-36); Mean Corpuscular Hgb 33.6 pg (27.0-32.0); Mean Corpuscular Volume 111.2 fL (80-94); Mean Platelet Vol. 12.3 fl (6.2-12.0); POSITIVE COUNT YES; POSITIVE DIFFERENTIAL YES; POSITIVE MORPHOLOGY YES; Platelet Count 171 K/mm3 (150-450); RBC Distribution Width SD 68.8 fl (35.1-43.9); Red Blood Count 2.41 M/mm3 (4.6-6.2); White Blood Count 12.7 K/mm3 (4.4-11.0)
[2023-04-05 05:35] LABS: Differential Indicated MANUAL DIFF
[2023-04-05] MEDS: Insulin Lispro 100 UNIT/ML INSULN.PEN SC ×4 (06:28→22:08)
[2023-04-05 06:33] LABS: Anion Gap 6 (5-15); BUN 38 mg/dL (7-18); BUN/Creat Ratio 14.2 RATIO (10-20); Calcium,Total 8.6 mg/dL (8.5-10.1); Chloride 121 mmol/L (98-107); Creatinine, Serum 2.67 mg/dL (0.70-1.30); EST Glomerular Filtration Rate 25 mL/min (>60); Est Glom Filt Rate - Afr Amer 30 mL/min (>60); Estimated Creatinine Clearance 18.48 ml/min; Glucose 139 mg/dL (74-106); Sodium Level 149 mmol/L (136-145)
[2023-04-05 06:37] LABS: Anisocytosis 1+; Macrocytosis 2+
[2023-04-05 06:38] LABS: Platelet Estimate ADEQUATE (ADEQ)
[2023-04-05 06:41] LABS: Absolute Neutrophil Count 7.1 X10^3/uL (2.0-7.7)
[2023-04-05 06:42] LABS: Absolute Lymphocyte Count 1.78 X10^3/uL (0.83-4.51); Metamyelocyte 1 % (0-1); Monocyte 24 % (0-10); Myelocyte 4 % (0-0); Neutrophil-Band 8 % (0-5); Neutrophil-Segmented 48 % (47-70); Promyelocyte 1 % (0-0); Total Cells Counted 100 (MANUAL DIFF)
[2023-04-05 06:51] LABS: Bedside Glucose 157 mg/dL (74-106)
[2023-04-05] MEDS: Dextrose 5%-Water (1000mL Bag) 1,000 ML 100 ML IV ×2 (07:46→18:18)
[2023-04-05] MEDS: APIXABAN 2.5 MG TABLET (WCH) PO ×2 (09:19→22:10)
[2023-04-05] MEDS: Insulin Glargine-YFGN 100 UNIT/ML Pen 10 UNIT SC ×2 (09:19→22:09)
[2023-04-05] MEDS: Potassium Chloride Oral Tablet 20 MEQ 40 MEQ PO ×2 (09:19→18:14)
[2023-04-05] MEDS: Pantoprazole Sodium 40 MG Tablet PO (09:20)
[2023-04-05] MEDS: NYSTATIN 500,000 UNIT/5 ML UDC 500000 UNIT PO ×2 (09:20→18:14)
[2023-04-05] MEDS: Piperacil/Tazobactam 3.375 GM in 0.9% Normal Saline (50mL MB+) 50 ML IV ×2 (09:38→22:18)
--- NOTE | 2023-04-05 10:03 | CASEMGMT ---
Patient is starting to improve. ALEKSANDR obtained the [facility] list from patient's room. Patient's chose 3 facilities [facility], [facility], and [facility] ([facility]). [facility]CU is full. ALEKSANDR asked Elma to send referrals to [facility] and [facility]. Arianne Maxwell NET APPLICATION ARCHITECT MAYRA
--- NOTE | 2023-04-05 11:39 | CASEMGMT ---
[facility] accepted patient. SW told them they should not start pre-cert yet. Plan: d/c to [facility] when patient is medically ready and insurance approves. Arianne NUNEZ
[2023-04-05 12:04] LABS: Bedside Glucose 259 mg/dL (74-106)
[2023-04-05] MEDS: Metoprolol Tartrate 25 MG Tablet PO ×2 (12:38→22:11)
[2023-04-05 14:00] LABS: Pathologist Review Reviewed
--- NOTE | 2023-04-05 14:18 | PCM.PN.HOSP ---
Reason for Visit Reason for Visit: Diagnoses Type 2 diabetes mellitus with ketoacidosis without coma (03/22/23) Hyperosmolality and hypernatremia (03/22/23) Metabolic encephalopathy (03/22/23) Paroxysmal atrial fibrillation (03/22/23) Unspecified atrial fibrillation (03/22/23) Pleural effusion, not elsewhere classified (03/22/23) Acute kidney failure, unspecified (03/22/23) Chronic kidney disease, stage 2 (mild) (03/22/23) Chronic kidney disease, stage 3b (03/22/23) Dysphagia, unspecified (03/22/23) Other malaise (03/22/23) Subjective Subjective Follow-up for moderate acute issues including loculated right-sided pleural effusion Objective Data Objective Data Vital Signs: Vital Signs Temp Pulse Resp BP Pulse Ox O2 Del Method O2 Flow Rate 98.9 F 128 H 22 H 121/72 H 95 Nasal Cannula 4 04/05/23 12:37 04/05/23 12:38 04/05/23 12:37 04/05/23 12:38 04/05/23 12:47 04/05/23 12:47 04/05/23 12:47 FiO2 97 04/02/23 08:28 Oxygen Flow Rate (L/min) [3] 4 Oxygen Flow Rate (L/min) [2] 4 Oxygen Flow Rate (L/min) [1 ( 4 Initial Baseline)] Oxygen Flow Rate (L/min) 4 Oxygen Delivery Method [3] Nasal Cannula Oxygen Delivery Method [2] Nasal Cannula Oxygen Delivery Method [1 ( Nasal Cannula Initial Baseline)] Oxygen Delivery Method Nasal Cannula Weight: 163 lb 5.8 oz Body Mass Index (BMI) 28.0 Intake & Output: Intake and Output for Last 24 Hours 04/03/23 04/04/23 04/05/23 23:59 23:59 23:59 Intake Total 3316.25 / 3316.25 3162.50 / 3162.50 1575 / 1575 Output Total 3230 / 3230 2160 / 2160 900 / 900 Balance 86.25 / 86.25 1002.50 / 1002.50 675 / 675 Medical Nutrition Assessment Dietitian: Malnutrition Criteria Met Start: 03/23/23 10:09 Freq: Status: Active Protocol: Document 04/02/23 11:48 AG (Rec: 04/02/23 11:49 [id number]) Nutrition Malnutrition Evidence of Malnutrition Exists Yes Malnutrition (severe): Acute Illness/Injury Evidenced By Suboptimal Energy Intake ( Severe),Weight Loss (Severe) Clinical Problem Biting/Chewing Difficulty Etiology related to debility Signs/Symptoms as evidenced by need for pureed diet Status Active Problem Acute Disease or Injury Related Malnutrition Etiology severe acute on likely chronic malnutrition related to inadequate energy intake Signs/Symptoms as evidenced by PO intake meeting <50% of estimated energy needs, unintentional 2% wt loss < 1 week Status Active Problem Altered Nutrient-Related Laboratory Values Etiology related to CHRIST on CKD stage III, dehydration Signs/Symptoms as evidenced by BUN 46, creatinine 3.02, sodium 150 Status Active Problem Recommendation Dietitian Recommendations/Changes continue regular diet given evidence of malnutrition, texture/consistency per MAIL FORWARDING SYSTEM MARKUP CLERK; will continue glucerna and magic cup w/meals Lab / Micro Data 04/05/23 05:14 04/05/23 05:14 Labs: Laboratory Results - last 24 hr 04/04/23 16:34: POC Glucose 324 H 04/04/23 21:50: POC Glucose 297 H 04/05/23 03:36: POC Glucose 148 H 04/05/23 05:14: WBC 12.7 H, RBC 2.41 L, Hgb 8.1 L, Hct 26.8 L, MCV 111.2 H, MCH 33.6 H, MCHC 30.2 L, RDW Std Deviation 68.8 H, RDW Coeff of Merry 17.0 H, Plt Count 171, MPV 12.3 H, Neut % (Auto) Not Reportable, Absolute Neuts (auto) 7.1, Absolute Lymphs (auto) 1.78, Total Counted 100, Neutrophils % (Manual) 48, Band Neutrophils % 8 H, Monocytes % (Manual) 24 H, Metamyelocytes % 1, Myelocytes % 4 H, Promyelocytes % 1 H, Diff Path Review Reviewed, Platelet Estimate ADEQUATE, Anisocytosis 1+, Macrocytosis 2+, Sodium 149 H, Potassium 4.0, Chloride 121 H, Carbon Dioxide 22.0, Anion Gap 6, BUN 38 H, Creatinine 2.67 H, Estim Creat Clear Calc 18.48, Est GFR (MDRD) Af Amer 30 L, Est GFR (MDRD) Non-Af 25 L, BUN/Creatinine Ratio 14.2, Glucose 139 H, Calcium 8.6 04/05/23 06:27: POC Glucose 157 H 04/05/23 11:30: POC Glucose 259 H Micro: Microbiology 03/22/23 20:57 Blood Culture (Wb) - Anticubital Right Blood Culture - Final No growth in 5 days. 03/22/23 22:22 Blood Culture (Wb) - Right Forearm Blood Culture - Final No growth in 5 days. 03/23/23 05:25 Sputum, Expectorated/Coughed Gram Stain - Final 03/23/23 05:25 Sputum, Expectorated/Coughed Respiratory Culture - Final Enterobacter cloacae complex 03/22/23 16:40 Urine, Clean Catch Urine Culture - Final Culture exhibits no growth. 03/22/23 16:40 Urine, Clean Catch Legionella Antigen - Final 03/22/23 16:40 Urine, Clean Catch Streptococcus pneumoniae Antigen (M - Final 03/22/23 20:50 Mucosa - Nasopharyngeal Coronavirus COVID-19 PCR - Final 03/22/23 20:50 Mucosa - Nasopharyngeal Respiratory Panel (PCR) - Final 03/22/23 16:59 Nasal Secretion SARS-CoV-2 & FLU Antigen (Rapid) - Final Physical Exam Narrative General: Alert, Oriented x3, Cooperative. Looks emaciated and sick. HEENT: Bilateral hearing impairment. Atraumatic, PERRLA, EOMI, Normocephalic Oral: Oral mucosa dry. No Gingival or Mucosal Lesions/ Ulcerations Neck: Supple, No JVD, Negative Carotid Bruits Lungs: Dyspnea is better today. On 4 L of oxygen. Air entry diminished in bilateral lung predominantly in right lung base. Cardiovascular: A-fib heart rate up to 130 permanent, Normal S1, Normal S2, No murmurs Abdomen: Bowel Sounds Present, Soft, Non Tender, Non-Distended : No renal angle tenderness. No suprapubic tenderness. Extremities: Bilateral leg pitting edema, Capillary Refill Less than 3 Seconds Skin: No rashes, No breakdown Musculoskeletal: No Tenderness to Palpation of Joints or Extremities. ROM restricted. Degenerative arthritis Neurological: Cranial nerves II-XII grossly intact, DTR 2+/4. No acute focal neurological deficit. Psych/Mental Status: Flat affect. Assessment & Plan Assessment/Plan (1) Pleural effusion, right: PLAN: Likely an empyema loculated. I supect due to chronic aspiration. On broad spectrum abx with pip/tazo. Thoracentesis attempted on the , but was unable to be safely performed due to confusion. Reattempted successfully on the . It was loculated. Preliminary exudative. Repeat chest CT showed persistent moderate-sized loculated right sided pleural effusion worrisome for empyema w an air-fluid loculation laterally and a localatoin w/i the major fissure. I personally reviewed and it appears worse than CT on 03/22. Previous hospitalist Dr. Gonzalez discussed with the patient's on 04/03 that UTI appears empyema and it has gotten worse despite being on antibiotics. Transfer to tertiary care for definitive management was discussed to be related by cardiothoracic surgeon for VATS or further decortication/chest tube which would be high perioperative risk seeing his patient general condition and multiple comorbidities. Other option is conservative management with IV antibiotics and if patient gets worse proceed with hospice. Patient and wished him to stay here and she understands the risk of infection getting worse without surgical intervention. Continue IV antibiotics. I told her that the definitive management would be referral to a tertiary facility to be evaluated by cardiothoracic surgery for what could include decortication. The other option would be supportive management with antibiotics and when the patient invariably gets worse then to proceed with hospice. I also explained that if patient does have surgery he would likely have chest tubes and, given his dementia, he may not thrive. I told her I do not know definitively how he would respond to that but without definitive treatment the infection will get worse. She wishes for him to remain here and not be transferred and understands that the risk of the infection will likely get worse without surgical intervention. Plan is to continue with antibiotics and when he does get worse proceed with hospice services. Patient was evaluated delivery driver/supervisor last seen on 03/30/2023. Conservative management. Signed off. Recommended to continue IV antibiotics (2) DKA (diabetic ketoacidoses): QUALIFIERS: Diabetes mellitus type: type 2 Diabetes mellitus complication detail: without coma Qualified Code(s): E11.10 - Type 2 diabetes mellitus with ketoacidosis without coma PLAN: POA. Was on insulin gtt, but since transitioned off. history of type 2 diabetes Initiated on insulin drip on admission and admitted to the ICU. Hemoglobin A1c of 12.4%. Had issues with hypogylcemia on 04/01, so glargine decreased from 20, to 10 BID. Glargine 10 BID. Continue SSI. (3) Metabolic encephalopathy: PLAN: Acute metabolic encephalopathy, improving Suspected secondary to acute infection as above with known underlying blindness and difficulty hearing. Unclear if patient has underlying dementia as well. Waxes and wanes, but overall confused. Complicated by profound presbycusis. (4) Atrial fibrillation: QUALIFIERS: Atrial fibrillation type: paroxysmal Qualified Code(s): I48.0 - Paroxysmal atrial fibrillation PLAN: New onset atrial fibrillation Echo shows an EF of 55%. DC heparin gtt. Start apixaban 2.5 BID. Follows with cardiology outpatient, can continue outpatient follow-up for now. Suspect new onset A-fib is primarily secondary to acute infection. Monitor telemetry. 04/05: A-fib with RVR. Started on metoprolol 25 mg twice daily along with metoprolol 5 mg IV every 6 hourly as needed for heart rate more 35-minute (5) CHRIST (acute kidney injury): PLAN: CHRIST on CKD stage IIIb. Leveling off. FENa 1.18%. Renal ultrasound negative. PVR Discussed with the office automation clerk. IV fluid changed from half-normal saline to D5W (6) Debility: PLAN: PT/OT/case management following. Lives at home with his . (7) Hypernatremia: PLAN: Ongoing Continue 0.45% NS. (8) Dysphagia: QUALIFIERS: Dysphagia type: oropharyngeal phase Qualified Code(s): R13.12 - Dysphagia, oropharyngeal phase PLAN: Likely acute on chronic ST eval. Recommending Puree textures, thin liquids, small bites and sips, liquid by teaspoon only HOB 90 degrees. Total feed. PLAN: Plan Clinical Impression(s) from Imaging Studies Chest X-Ray 03/22/23 16:42 IMPRESSION: No acute pulmonary process Electronically Signed: Nathaniel Sow MD at 17:28 EDT , Brain CT 03/22/23 17:12 IMPRESSION: Chronic involutional changes of the brain. No acute hemorrhage, no interval change Electronically Signed: Nathaniel Sow MD at 17:29 EDT , Chest/Abdomen/Pelvis CT 03/22/23 17:55 IMPRESSION: Chronic interstitial changes in both lung connelly with interstitial edema, and a loculated right pleural effusion with associated atelectasis. 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 Consider short-term follow-up or additional imaging with ultrasound or contrasted study Small bowel ileus Retained stool in the colon Degenerative bony changes Electronically Signed: Nathaniel Sow MD at 19:08 EDT , Chest X-Ray 03/23/23 05:55 IMPRESSION: Right basilar atelectasis versus infiltrate and probable small right pleural effusion. Electronically Signed: Didier Daniel DO at 6:18 EDT , Chest Ultrasound 03/23/23 06:35 IMPRESSION: Not enough fluid for safe thoracentesis of the right pleural space. Electronically Signed: Davie Scott MD at 14:55 EDT , Echocardiogram 03/23/23 07:54 Interpretation Summary The estimated ejection fraction is 55 %. Unable to assess diastolic dysfunction. septal hypokinesis Ordering Physician: Silas Randolph Referring Physician: Berny Almanza Performed By: Jacqueline Kahn, RDCS, RVT Renal Ultrasound 03/26/23 09:20 IMPRESSION: No hydronephrosis. Bilateral renal cysts. Electronically Signed: Niki Rush MD at 13:26 EDT , Chest X-Ray 04/01/23 13:10 IMPRESSION: Increased size of right pleural effusion with a loculated appearance, possible empyema. Increased focal opacity in the right midlung from pneumonia or loculated effusion. Increased atelectasis or pneumonia of the right lung base. Electronically Signed: Anat Nguyen MD at 13:37 EDT , Thoracentesis Ultrasound 04/01/23 13:44 IMPRESSION: Ultrasound-guided right thoracentesis. Electronically Signed: Davie Scott MD at 14:55 EDT , Chest X-Ray 04/02/23 13:55 IMPRESSION: Status post right thoracentesis. No evidence of pneumothorax. Electronically Signed: Davie Scott MD at 14:35 EDT , Chest CT 04/02/23 16:46 IMPRESSION: Persistent moderate-sized loculated right-sided pleural effusion worrisome for empyema with an air-fluid loculation laterally and a loculation within the major fissure. Associated right lower lobe atelectasis or pneumonia. Electronically Signed: John Greene MD at 21:39 EDT , Charges/Coding Visit Charges Inpatient E&M: 64300 Subs Hosp L2
--- NOTE | 2023-04-05 14:25 | NURSING ---
pt with episode of hypoxia aafter removing NC. unsure how long pt had NC removed. found SOB with SPO2 low 80s. applied O2 10 L NC for few minutes. O2 still remained on 80s. applied HFNC @5L and pt recovered well.
--- NOTE | 2023-04-05 14:29 | PCM.PN.REN ---
Subjective Subjective No overnight events. Alert to name. No acute distress noted. Objective Data Objective Data Vital Signs: Vital Signs Temp Pulse Resp BP Pulse Ox O2 Del Method O2 Flow Rate 98.9 F 128 H 22 H 121/72 H 95 Nasal Cannula 4 04/05/23 12:37 04/05/23 12:38 04/05/23 12:37 04/05/23 12:38 04/05/23 12:47 04/05/23 12:47 04/05/23 12:47 FiO2 97 04/02/23 08:28 Oxygen Flow Rate (L/min) [3] 4 Oxygen Flow Rate (L/min) [2] 4 Oxygen Flow Rate (L/min) [1 ( 4 Initial Baseline)] Oxygen Flow Rate (L/min) 4 Oxygen Delivery Method [3] Nasal Cannula Oxygen Delivery Method [2] Nasal Cannula Oxygen Delivery Method [1 ( Nasal Cannula Initial Baseline)] Oxygen Delivery Method Nasal Cannula Weight: 74.1 kg Body Mass Index (BMI) 28.0 Intake & Output: Intake and Output for Last 24 Hours 04/03/23 04/04/23 04/05/23 23:59 23:59 23:59 Intake Total 3316.25 / 3316.25 3162.50 / 3162.50 1575 / 1575 Output Total 3230 / 3230 2160 / 2160 900 / 900 Balance 86.25 / 86.25 1002.50 / 1002.50 675 / 675 Medical Nutrition Assessment Dietitian: Malnutrition Criteria Met Start: 03/23/23 10:09 Freq: Status: Active Protocol: Document 04/02/23 11:48 AG (Rec: 04/02/23 11:49 AG [id number]) Nutrition Malnutrition Evidence of Malnutrition Exists Yes Malnutrition (severe): Acute Illness/Injury Evidenced By Suboptimal Energy Intake ( Severe),Weight Loss (Severe) Clinical Problem Biting/Chewing Difficulty Etiology related to debility Signs/Symptoms as evidenced by need for pureed diet Status Active Problem Acute Disease or Injury Related Malnutrition Etiology severe acute on likely chronic malnutrition related to inadequate energy intake Signs/Symptoms as evidenced by PO intake meeting <50% of estimated energy needs, unintentional 2% wt loss < 1 week Status Active Problem Altered Nutrient-Related Laboratory Values Etiology related to CHRIST on CKD stage III, dehydration Signs/Symptoms as evidenced by BUN 46, creatinine 3.02, sodium 150 Status Active Problem Recommendation Dietitian Recommendations/Changes continue regular diet given evidence of malnutrition, texture/consistency per [employer]OUS[employer] 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; will continue glucerna and magic cup w/meals Lab / Micro Data 04/05/23 05:14 04/05/23 05:14 Labs: Laboratory Results - last 24 hr 04/04/23 16:34: POC Glucose 324 H 04/04/23 21:50: POC Glucose 297 H 04/05/23 03:36: POC Glucose 148 H 04/05/23 05:14: WBC 12.7 H, RBC 2.41 L, Hgb 8.1 L, Hct 26.8 L, MCV 111.2 H, MCH 33.6 H, MCHC 30.2 L, RDW Std Deviation 68.8 H, RDW Coeff of Merry 17.0 H, Plt Count 171, MPV 12.3 H, Neut % (Auto) Not Reportable, Absolute Neuts (auto) 7.1, Absolute Lymphs (auto) 1.78, Total Counted 100, Neutrophils % (Manual) 48, Band Neutrophils % 8 H, Monocytes % (Manual) 24 H, Metamyelocytes % 1, Myelocytes % 4 H, Promyelocytes % 1 H, Diff Path Review Reviewed, Platelet Estimate ADEQUATE, Anisocytosis 1+, Macrocytosis 2+, Sodium 149 H, Potassium 4.0, Chloride 121 H, Carbon Dioxide 22.0, Anion Gap 6, BUN 38 H, Creatinine 2.67 H, Estim Creat Clear Calc 18.48, Est GFR (MDRD) Af Amer 30 L, Est GFR (MDRD) Non-Af 25 L, BUN/Creatinine Ratio 14.2, Glucose 139 H, Calcium 8.6 04/05/23 06:27: POC Glucose 157 H 04/05/23 11:30: POC Glucose 259 H Micro: Microbiology 03/22/23 20:57 Blood Culture (Wb) - Anticubital Right Blood Culture - Final No growth in 5 days. 03/22/23 22:22 Blood Culture (Wb) - Right Forearm Blood Culture - Final No growth in 5 days. 03/23/23 05:25 Sputum, Expectorated/Coughed Gram Stain - Final 03/23/23 05:25 Sputum, Expectorated/Coughed Respiratory Culture - Final Enterobacter cloacae complex 03/22/23 16:40 Urine, Clean Catch Urine Culture - Final Culture exhibits no growth. 03/22/23 16:40 Urine, Clean Catch Legionella Antigen - Final 03/22/23 16:40 Urine, Clean Catch Streptococcus pneumoniae Antigen (M - Final 03/22/23 20:50 Mucosa - Nasopharyngeal Coronavirus COVID-19 PCR - Final 03/22/23 20:50 Mucosa - Nasopharyngeal Respiratory Panel (PCR) - Final 03/22/23 16:59 Nasal Secretion SARS-CoV-2 & FLU Antigen (Rapid) - Final Physical Exam Narrative Alert to name, hard of hearing, no apparent distress S1, S2, rhythm irregular rate controlled Diminished breath sounds posteriorly. Clear anteriorly abdomen soft, nontender Trace lower extremity edema Assessment & Plan Assessment/Plan (1) CHRIST (acute kidney injury): (2) Chronic kidney disease, stage 3b: (3) Hypernatremia: PLAN: Plan Impression/Plan: The patient is a 82-year-old man with past history of type 2 diabetes mellitus, hypertension, aortic stenosis status post SAVR, mitral valve insufficiency, pulmonary hypertension, and chronic kidney disease stage G3b. The patient presented to the hospital on 03/22/2023 with DKA and acute on chronic hypoxic respiratory failure with right pleural effusion. He also developed new onset atrial fibrillation during this hospitalization. Nephrology is following for CHRIST on CKD. - CHRIST on CKD stage G3b. Baseline serum creatinine appears to be around 1.7 to 1.8 mg/dL. 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 Serum creatinine was 2.67 mg/dL on admission (03/22/2023), improved to 1.9 mg/dL on 03/23, was on IVF and treating DKA. SCr 2.0 mg/dL on 03/24 and had been slowly rising between 03/24/2023 until 03/29/2023, SCr peaked 3.50 mg/dL on 03/29--> last SCr 2.67mg/dL. Suspect CHRIST is secondary to ischemic ATN. Fortunately, serum creatinine has plateaued and slightly improved on IVF. There is no need for kidney replacement therapy. Continue to hold losartan. - Hypernatremia may be due to prior polyuria (he made 3.1 L of urine without diuretic on 03/31/2023) and lack of oral intake. Patient is a total feed which limits ability to get water on his own. Encouraged staff to push free water. Sodium peaked 157 and has improved to 149. Since no further episodes of hyperglycemia now on D5 -Family decided for no transfer to tertiary center as CT chest without contrast worrisome for empyema. CODE STATUS is DNR CCA no intubation. Continuing IV Antibiotics for now
[2023-04-05 16:25] LABS: Bedside Glucose 230 mg/dL (74-106)
[2023-04-05] MEDS: Menthol/Lanolin/Calamine/Znox 113 GM Tube 1 APPLIC TOPICAL (22:18)
[2023-04-05 22:29] LABS: Bedside Glucose 213 mg/dL (74-106)
[2023-04-06] VITALS (7 sets, daily range): BP systolic 108–123; BP diastolic 75–78; PULSE 73–89; RESP 18–20; TEMP 36.3–36.7; O2SAT 89–94; BMI 28.3
[2023-04-06] MEDS: Dextrose 5%-Water (1000mL Bag) 1,000 ML 100 ML IV (03:05)
[2023-04-06 03:29] LABS: Bedside Glucose 122 mg/dL (74-106)
[2023-04-06] MEDS: Menthol/Lanolin/Calamine/Znox 113 GM Tube 1 APPLIC TOPICAL ×2 (06:29→14:56)
[2023-04-06 06:52] LABS: Bedside Glucose 85 mg/dL (74-106)
[2023-04-06] MEDS: Budesonide Respules 0.5 MG/2 ML AMPUL.NEB. INHALATION (07:06)
[2023-04-06 07:22] LABS: Absolute Lymphocyte Count 2.07 X10^3/uL (0.83-4.51); Absolute Neutrophil Count 11.3 X10^3/uL (2.0-7.7); Basophil# 0.04 X10^3/uL; Basophil% 0.2 % (0-1); Eosinophil# 0.09 X10^3/uL; Eosinophils% 0.5 % (0-5); Hematocrit 23.9 % (40-54); Hemoglobin 7.2 g/dL (13.0-16.5); Lymphocyte # 2.07 X10^3/ul (0.83-4.51); Lymphocyte % 11.1 % (19-41); Mean Corp Hgb Conc 30.1 g/dL (32-36); Mean Corpuscular Volume 112.7 fL (80-94); Mean Platelet Vol. 12.3 fl (6.2-12.0); Monocyte% 23.6 % (0-10); NRBC Flagged by Analyzer 0.5 % (0-5); Neutrophil # 11.29 X10^3/uL (2.7-7.7); Neutrophil % 60.7 % (47-70); POSITIVE DIFFERENTIAL YES; POSITIVE MORPHOLOGY YES; Platelet Count 177 K/mm3 (150-450); RBC Distribution Width CV 17.2 % (11.6-14.6); RBC Distribution Width SD 69.4 fl (35.1-43.9); Red Blood Count 2.12 M/mm3 (4.6-6.2); White Blood Count 18.6 K/mm3 (4.4-11.0)
[2023-04-06 07:28] LABS: Differential Indicated SCAN CRITERIA MET
[2023-04-06] MEDS: Dextrose 5%-Water (1000mL Bag) 1,000 ML 50 ML IV (07:44)
[2023-04-06] MEDS: Sodium Ferric Gluconat/Sucrose 250 MG in 0.9% Normal Saline (250mL Bag) 250 ML 135 MG IV (08:36)
[2023-04-06 08:37] LABS: Anisocytosis 2+; Differential Comment SCANNED; Macrocytosis 1+; Microcytosis 1+
[2023-04-06] MEDS: Insulin Glargine-YFGN 100 UNIT/ML Pen 10 UNIT SC (10:22)
[2023-04-06] MEDS: Pantoprazole Sodium 40 MG Tablet PO (10:23)
[2023-04-06] MEDS: Metoprolol Tartrate 25 MG Tablet PO (10:23)
[2023-04-06] MEDS: APIXABAN 2.5 MG TABLET (WCH) PO (10:23)
[2023-04-06] MEDS: Piperacil/Tazobactam 3.375 GM in 0.9% Normal Saline (50mL MB+) 50 ML IV (10:43)
[2023-04-06 10:50] LABS: Bedside Glucose 115 mg/dL (74-106)
--- NOTE | 2023-04-06 10:58 | CASEMGMT ---
ALEKSANDR called patient's Rosa to update her on [facility] accepting patient. ALESKANDR left a voice mail letting Rosa know patient was accepted at [facility] and once he is medically ready and insurance approves [facility] will set up transport to get patient to [facility]. ALEKSANDR also left ALEKSANDR's phone number. Plan: d/c to [facility] pending insurance approval. Arianne NUNEZ
[2023-04-06] MEDS: Cefepime HCl 1 GM in 0.9% Normal Saline (50mL MB+) 50 ML IV (12:40)
--- NOTE | 2023-04-06 12:42 | PCM.CONS.GEN ---
Assessment & Plan Assessment/Plan (1) History of aortic valve replacement with bioprosthetic valve: (2) Empyema: PLAN: Sputum from 03/23 with enterobacter. Unfortunately, zosyn is not reliable coverage for enterobacter. Will change to cefepime/flagyl. Repeat CT done 04/02, showed concern for empyema. Had thoracentesis here 04/02 with purulent fluid drained but no sample sent for culture. Antibiotic therapy alone cannot treat an empyema. Worsened O2 and wbc this AM, will check covid pcr. Choice for family would be hospice with po levaquin/flagyl for comfort vs transfer for thoracic surgery eval. I am concerned he would continue worsen with present course. Will follow, thank you, d/w Dr. Lopez and pulm (3) Chronic kidney disease, stage 3b: HPI Consult Data Date of Consult: 04/06/23 HPI Narrative Reason for Consultation: empyema HPI Narrative: GILBERTO DE LEÓN, is a 82 M who presented 03/22 with cough with purulent sputum, weakness, mostly bedbound for 2-3 weeks. Admitted here, CT showed loculated effusion. Has been on zosyn since admit, treated for DKA. Had thoracentesis 04/02 with 380ml purulent fluid drained. Was on vanc 03/23 to 03/26. Today, worsened O2 and wbc. Pt unable to provide history or ROS due to mental status. [facility] Medical History Accelerated junctional rhythm Acute on chronic combined systolic (congestive) and diastolic (congestive) heart failure Acute respiratory failure with hypercapnia CHRIST (acute kidney injury) Cardiomyopathy in disease classified elsewhere Chronic kidney disease CKD stage 3 due to type 2 diabetes mellitus Critical aortic valve stenosis Diabetes mellitus Hypertension skilled nursing current use of anticoagulant Metabolic encephalopathy Mitral valve insufficiency Nonrheumatic aortic valve stenosis Nonrheumatic aortic valve stenosis with insufficiency Type 2 diabetes mellitus with hyperglycemia Home Medications polysaccharide iron complex 150 mg iron capsule (Ferrex) 150 mg PO DAILY supplement 06/02/19 [History Last Taken 03/05/22] fluticasone propionate 50 mcg/actuation nasal spray,suspension (Allergy Relief (fluticasone)) 2 spray intranasal DAILY allergies 04/06/21 [History Last Taken 03/06/22] handicap placcard #1 ea 04/11/22 [Rx Last Taken Unknown] carvedilol 3.125 mg tablet 3.125 mg PO BID blood pressure 30 days #60 tabs 06/14/22 [Rx Last Taken Unknown] albuterol sulfate 2.5 mg/3 mL (0.083 %) solution for nebulization 2.5 mg (3 mL) inhalation Q4H PRN Sob &/Or Wheezing #180 mL 09/25/22 [Rx Last Taken Unknown] budesonide 1 mg/2 mL suspension for nebulization 1 mg (2 mL) inhalation BID wheezing #60 mL 09/25/22 [Rx Last Taken Unknown] losartan 25 mg tablet 50 mg PO DAILY blood pressure 03/28/23 [History Last Taken Unknown] multivitamin (Daily Multi-Vitamin tablet) 1 tab PO DAILY supplement 03/28/23 [History Last Taken Unknown] Allergy/AdvReac Type Severity Reaction Status Date / Time No Known Allergies Allergy Verified 03/22/23 16:19 Family History Mother Hypertension Father Hypertension Surgical History History of adenoidectomy History of aortic valve replacement with bioprosthetic valve (~07/04/17) History of left heart catheterization (~04/2017) History of tonsillectomy Hx of cholecystectomy S/P mitral valve repair (07/04/17) Social History Smoking Status: Never smoker alcohol intake: never substance use type: does not use caffeine: Yes Type: coffee Number of servings: 2 what type of physical activity do you participate in: other details: PT frequency: daily duration: 15-30 minutes/day seatbelt use: always do you feel safe at home: Yes Physical Exam Const no apparent distress General Appearance: lethargic HEENT normocephalic and head/scalp atraumatic Eyes PERRL and EOMs intact bilaterally Neck supple and No nodes Resp Auscultation: diminished lung sounds Cardio regular rate and regular rhythm Heart Sounds: murmur GI soft to palpation, non-tender and non-distended Extremity General Extremity: Negative for edema Skin no rashes or lesions noted Neuro Neuro Narrative: not following commands Medical Records Data Medical Nutrition Assessment Dietitian: Malnutrition Criteria Met Start: 03/23/23 10:09 Freq: Status: Active Protocol: Document 04/02/23 11:48 AG (Rec: 04/02/23 11:49 AG [id number]) Nutrition Malnutrition Evidence of Malnutrition Exists Yes Malnutrition (severe): Acute Illness/Injury Evidenced By Suboptimal Energy Intake ( Severe),Weight Loss (Severe) Clinical Problem Biting/Chewing Difficulty Etiology related to debility Signs/Symptoms as evidenced by need for pureed diet Status Active Problem Acute Disease or Injury Related Malnutrition Etiology severe acute on likely chronic malnutrition related to inadequate energy intake Signs/Symptoms as evidenced by PO intake meeting <50% of estimated energy needs, unintentional 2% wt loss < 1 week Status Active Problem Altered Nutrient-Related Laboratory Values Etiology related to CHRIST on CKD stage III, dehydration Signs/Symptoms as evidenced by BUN 46, creatinine 3.02, sodium 150 Status Active Problem Recommendation Dietitian Recommendations/Changes continue regular diet given evidence of malnutrition, texture/consistency 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 04/06/23 06:58 04/05/23 05:14 Labs: Laboratory Results - last 24 hr 04/05/23 05:14: Diff Path Review Reviewed 04/05/23 16:06: POC Glucose 230 H 04/05/23 22:07: POC Glucose 213 H 04/06/23 03:03: POC Glucose 122 H 04/06/23 06:28: POC Glucose 85 04/06/23 06:58: WBC 18.6 H, RBC 2.12 L, Hgb 7.2 L, Hct 23.9 L, MCV 112.7 H, MCH 34.0 H, MCHC 30.1 L, RDW Std Deviation 69.4 H, RDW Coeff of Merry 17.2 H, Plt Count 177, MPV 12.3 H, Immature Gran % (Auto) 3.900 H, Neut % (Auto) 60.7, Lymph % (Auto) 11.1 L, [place] % (Auto) 23.6 H, Eos % (Auto) 0.5, Baso % (Auto) 0.2, Absolute Neuts (auto) 11.3 H, Absolute Lymphs (auto) 2.07, Nucleated RBC % 0.5, Differential Comment SCANNED, Diff Path Review May foll, Anisocytosis 2+, Microcytosis 1+, Macrocytosis 1+ 04/06/23 10:26: POC Glucose 115 H
--- NOTE | 2023-04-06 13:04 | CASEMGMT ---
Patient was approved by insurance to go to [facility]. SW completed PASRR in [facility] system. Arianne NUNEZ
[2023-04-06] MEDS: metroNIDAZOLE 500 MG Tablet PO (14:56)
--- NOTE | 2023-04-06 15:38 | PN.HOSP_ITS ---
Reason for Visit Reason for Visit: Diagnoses Type 2 diabetes mellitus with ketoacidosis without coma (03/22/23) Hyperosmolality and hypernatremia (03/22/23) Metabolic encephalopathy (03/22/23) Paroxysmal atrial fibrillation (03/22/23) Unspecified atrial fibrillation (03/22/23) Pyothorax without fistula (03/22/23) Pleural effusion, not elsewhere classified (03/22/23) Acute kidney failure, unspecified (03/22/23) Chronic kidney disease, stage 2 (mild) (03/22/23) Chronic kidney disease, stage 3b (03/22/23) Dysphagia, unspecified (03/22/23) Dysphagia, oropharyngeal phase (03/22/23) Other malaise (03/22/23) Presence of xenogenic heart valve (03/22/23) Objective Data Objective Data Vital Signs: Vital Signs Temp Pulse Resp BP Pulse Ox O2 Del Method O2 Flow Rate 97.9 F 76 18 123/77 H 92 High Flow 6 04/06/23 10:20 04/06/23 10:23 04/06/23 10:20 04/06/23 10:23 04/06/23 10:20 04/06/23 10:20 04/06/23 15:13 FiO2 97 04/02/23 08:28 Oxygen Flow Rate (L/min) [3] 4 Oxygen Flow Rate (L/min) [2] 4 Oxygen Flow Rate (L/min) [1 ( 4 Initial Baseline)] Oxygen Flow Rate (L/min) 6 Oxygen Delivery Method [3] Nasal Cannula Oxygen Delivery Method [2] Nasal Cannula Oxygen Delivery Method [1 ( Nasal Cannula Initial Baseline)] Oxygen Delivery Method High Flow Weight: 165 lb 5.547 oz Body Mass Index (BMI) 28.3 Intake & Output: Intake and Output for Last 24 Hours 04/04/23 04/05/23 04/06/23 23:59 23:59 23:59 Intake Total 3162.50 / 3162.50 3075 / 3075 2223.54 / 2223.54 Output Total 2160 / 2160 2080 / 2080 1830 / 1830 Balance 1002.50 / 1002.50 995 / 995 393.54 / 393.54 Medical Nutrition Assessment Dietitian: Malnutrition Criteria Met Start: 03/23/23 10:09 Freq: Status: Active Protocol: Document 04/02/23 11:48 AG (Rec: 04/02/23 11:49 AG [id number]) Nutrition Malnutrition Evidence of Malnutrition Exists Yes Malnutrition (severe): Acute Illness/Injury Evidenced By Suboptimal Energy Intake ( Severe),Weight Loss (Severe) Clinical Problem Biting/Chewing Difficulty Etiology related to debility Signs/Symptoms as evidenced by need for pureed diet Status Active Problem Acute Disease or Injury Related Malnutrition Etiology severe acute on likely chronic malnutrition related to inadequate energy intake Signs/Symptoms as evidenced by PO intake meeting <50% of estimated energy needs, unintentional 2% wt loss < 1 week Status Active Problem Altered Nutrient-Related Laboratory Values Etiology related to CHRIST on CKD stage III, dehydration Signs/Symptoms as evidenced by BUN 46, creatinine 3.02, sodium 150 Status Active Problem Recommendation Dietitian Recommendations/Changes continue regular diet given evidence of malnutrition, texture/consistency per LOW RAW SUGAR CUTTER; will continue glucerna and magic cup w/meals Lab / Micro Data 04/06/23 06:58 04/05/23 05:14 Labs: Laboratory Results - last 24 hr 04/05/23 16:06: POC Glucose 230 H 04/05/23 22:07: POC Glucose 213 H 04/06/23 03:03: POC Glucose 122 H 04/06/23 06:28: POC Glucose 85 04/06/23 06:58: WBC 18.6 H, RBC 2.12 L, Hgb 7.2 L, Hct 23.9 L, MCV 112.7 H, MCH 34.0 H, MCHC 30.1 L, RDW Std Deviation 69.4 H, RDW Coeff of Merry 17.2 H, Plt Count 177, MPV 12.3 H, Immature Gran % (Auto) 3.900 H, Neut % (Auto) 60.7, Lymph % (Auto) 11.1 L, Weber % (Auto) 23.6 H, Eos % (Auto) 0.5, Baso % (Auto) 0.2, Absolute Neuts (auto) 11.3 H, Absolute Lymphs (auto) 2.07, Nucleated RBC % 0.5, Differential Comment SCANNED, Diff Path Review May foll, Anisocytosis 2+, Microcytosis 1+, Macrocytosis 1+ 04/06/23 10:26: POC Glucose 115 H Micro: Microbiology 04/06/23 12:01 Mucosa - Nasopharyngeal Coronavirus COVID-19 PCR - Final 03/22/23 20:57 Blood Culture (Wb) - Anticubital Right Blood Culture - Final No growth in 5 days. 03/22/23 22:22 Blood Culture (Wb) - Right Forearm Blood Culture - Final No growth in 5 days. 03/23/23 05:25 Sputum, Expectorated/Coughed Gram Stain - Final 03/23/23 05:25 Sputum, Expectorated/Coughed Respiratory Culture - Final Enterobacter cloacae complex 03/22/23 16:40 Urine, Clean Catch Urine Culture - Final Culture exhibits no growth. 03/22/23 16:40 Urine, Clean Catch Legionella Antigen - Final 03/22/23 16:40 Urine, Clean Catch Streptococcus pneumoniae Antigen (M - Final 03/22/23 20:50 Mucosa - Nasopharyngeal Coronavirus COVID-19 PCR - Final 03/22/23 20:50 Mucosa - Nasopharyngeal Respiratory Panel (PCR) - Final 03/22/23 16:59 Nasal Secretion SARS-CoV-2 & FLU Antigen (Rapid) - Final Physical Exam Narrative General: Alert, Oriented x3, Cooperative. Looks emaciated and sick. Patient is more awake today. HEENT: Bilateral hearing impairment. Atraumatic, PERRLA, EOMI, Normocephalic Oral: Oral mucosa dry. No Gingival or Mucosal Lesions/ Ulcerations Neck: Supple, No JVD, Negative Carotid Bruits Lungs: Dyspnea is better today. On 6 L of oxygen. Air entry diminished in bilateral lung predominantly in right lung base. Cardiovascular: A-fib heart rate up to 130 permanent, Normal S1, Normal S2, No murmurs Abdomen: Bowel Sounds Present, Soft, Non Tender, Non-Distended : No renal angle tenderness. No suprapubic tenderness. Extremities: Bilateral leg pitting edema, Capillary Refill Less than 3 Seconds Skin: No rashes, No breakdown Musculoskeletal: No Tenderness to Palpation of Joints or Extremities. ROM restr icted. Degenerative arthritis Neurological: Cranial nerves II-XII grossly intact, DTR 2+/4. No acute focal neurological deficit. Psych/Mental Status: Flat affect. Assessment & Plan Assessment/Plan (1) Pleural effusion, right: PLAN: Likely an empyema loculated. I supect due to chronic aspiration. On broad spectrum abx with pip/tazo. Thoracentesis attempted on the , but was unable to be safely performed due to confusion. Reattempted successfully on the . It was loculated. Preliminary exudative. Repeat chest CT showed persistent moderate-sized loculated right sided pleural effusion worrisome for empyema w an air-fluid loculation laterally and a localatoin w/i the major fissure. I personally reviewed and it appears worse than CT on 03/22. Previous hospitalist Dr. Lozoya discussed with the patient's on 04/03 that UTI appears empyema and it has gotten worse despite being on antibiotics. Transfer to tertiary care for definitive management was discussed to be related by cardiothoracic surgeon for VATS or further decortication/chest tube which would be high perioperative risk seeing his patient general condition and multiple comorbidities. Other option is conservative management with IV antib iotics and if patient gets worse proceed with hospice. Patient and wished him to stay here and she understands the risk of infection getting worse without surgical intervention. Continue IV antibiotics. I told her that the definitive management would be referral to a tertiary facility to be evaluated by cardiothoracic surgery for what could include decortication. The other option would be supportive management with antibiotics and when the patient invariably gets worse then to proceed with hospice. I also explained that if patient does have surgery he would likely have chest tubes a nd, given his dementia, he may not thrive. I told her I do not know definitively how he would respond to that but without definitive treatment the infection will get worse. She wishes for him to remain here and not be transferred and understands that the risk of the infection will likely get worse without surgical intervention. Plan is to continue with antibiotics and when he does get worse proceed with hospice services. Patient was evaluated [employer] library media specialist last seen on 03/30/2023. Conservative management. Signed off. Recommended to continue IV antibiotics 04/06: Patient was evaluated by ID and sent electronically patient is getting worse and in that he needs thoracic surgery to control the infection as antibiotic alone will not be sufficient. He also talked to high school library media specialist Dr. Tamera devries. I talked to the patient's , Mrs. Rosa Sommers and we all agreed that he is high risk for thoracic surgery including VATS or chest tube. Given the risk she does not want patient to go for surgery but rather selected for hospice care. She is alone by herself and said she will not be able to take care of him therefore preferred inpatient hospice care. CODE STATUS changed to DNR CC and d iscussed with the charge nurse to proceed for hospice care. (2) DKA (diabetic ketoacidoses): QUALIFIERS: Diabetes mellitus type: type 2 Diabetes mellitus complication detail: without coma Qualified Code(s): E11.10 - Type 2 diabetes mellitus with ketoacidosis without coma PLAN: POA. Was on insulin gtt, but since transitioned off. history of type 2 diabetes Initiated on insulin drip on admission and admitted to the ICU. Hemoglobin A1c of 12.4%. Had issues with hypogylcemia on 04/01, so glargine decreased from 20, to 10 BID. Glargine 10 BID. Continue SSI. (3) Metabolic encephalopathy: PLAN: Acute metabolic encephalopathy, improving Suspected secondary to acute infection as above with known underlying blindness and difficulty hearing. Unclear if patient has underlying dementia as well. Waxes and wanes, but overall confused. Complicated by profound presbycusis. (4) Atrial fibrillation: QUALIFIERS: Atrial fibrillation type: paroxysmal Qualified Code(s): I48.0 - Paroxysmal atrial fibrillation PLAN: New onset atrial fibrillation Echo shows an EF of 55%. DC heparin gtt. Start apixaban 2.5 BID. Follows with cardiology outpatient, can continue outpatient follow-up for now. Suspect new onset A-fib is primarily secondary to acute infection. Monitor telemetry. 04/05: A-fib with RVR. Started on metoprolol 25 mg twice daily along with metoprolol 5 mg IV every 6 hourly as needed for heart rate more 35-minute (5) CHRIST (acute kidney injury): PLAN: CHRIST on CKD stage IIIb. Leveling off. FENa 1.18%. Renal ultrasound negative. PVR Discussed with the title clerk automobile. IV fluid changed from half-normal saline to D5W (6) Debility: PLAN: PT/OT/case management following. Lives at home with his . (7) Hypernatremia: PLAN: Ongoing Continue 0.45% NS. (8) Dysphagia: QUALIFIERS: Dysphagia type: oropharyngeal phase Qualified Code(s): R13.12 - Dysphagia, oropharyngeal phase PLAN: Likely acute on chronic ST eval. Recommending Puree textures, thin liquids, small bites and sips, liquid by teaspoon only HOB 90 degrees. Total feed. (9) Empyema: PLAN: As described above. No fever but worsening of leukocytes and hypoxia. Sputum culture shows Enterobacter from 03/23. Patient had loculated right pleural effusion since admission and therefore empyema present since admission. High risk for surgery. Patient selected inpatient hospice care. ID changed antibiotic to cefepime and Flagyl. Repeat CT scan 04/02 showed concern for empyema. Patient hypoxia is worsening with increased leukocytes. He requires about 6 L of oxygen now. COVID PCR. As family selected hospice dasha maxwell will discharge on Levaquin and Flagyl for about 1 to 2 weeks as suggested by ID as comfort measure. PLAN: Plan Clinical Impression(s) from Imaging Studies Chest X-Ray 03/22/23 16:42 IMPRESSION: No acute pulmonary process Electronically Signed: Nathaniel Sow MD at 17:28 EDT , Brain CT 03/22/23 17:12 IMPRESSION: Chronic involutional changes of the brain. No acute hemorrhage, no interval change Electronically Signed: Nathaniel Sow MD at 17:29 EDT , Chest/Abdomen/Pelvis CT 03/22/23 17:55 IMPRESSION: Chronic interstitial changes in both lung connelly with interstitial edema, and a loculated right pleural effusion with associated atelectasis. 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 Consider short-term follow-up or additional imaging with ultrasound or contrasted study Small bowel ileus Retained stool in the colon Degenerative bony changes Electronically Signed: Nathaniel Sow MD at 19:08 EDT , Chest X-Ray 03/23/23 05:55 IMPRESSION: Right basilar atelectasis versus infiltrate and probable small right pleural effusion. Electronically Signed: Didier Daniel DO at 6:18 EDT , Chest Ultrasound 03/23/23 06:35 IMPRESSION: Not enough fluid for safe thoracentesis of the right pleural space. Electronically Signed: Davie Scott MD at 14:55 EDT , Echocardiogram 03/23/23 07:54 Interpretation Summary The estimated ejection fraction is 55 %. Unable to assess diastolic dysfunction. septal hypokinesis Ordering Physician: Silas Randolph Referring Physician: Berny Almanza Performed By: Jacqueline Kahn, ITZEL, RVT Renal Ultrasound 03/26/23 09:20 IMPRESSION: No hydronephrosis. Bilateral renal cysts. Electronically Signed: Niki Rush MD at 13:26 EDT , Chest X-Ray 04/01/23 13:10 IMPRESSION: Increased size of right pleural effusion with a loculated appearance, possible empyema. Increased focal opacity in the right midlung from pneumonia or loculated effusion. Increased atelectasis or pneumonia of the right lung base. Electronically Signed: Anat Nguyen MD at 13:37 EDT , Thoracentesis Ultrasound 04/01/23 13:44 IMPRESSION: Ultrasound-guided right thoracentesis. Electronically Signed: Davie Scott MD at 14:55 EDT , Chest X-Ray 04/02/23 13:55 IMPRESSION: Status post right thoracentesis. No evidence of pneumothorax. Electronically Signed: Davie Scott MD at 14:35 EDT , Chest CT 04/02/23 16:46 IMPRESSION: Persistent moderate-sized loculated right-sided pleural effusion worrisome for empyema with an air-fluid loculation laterally and a loculation within the major fissure. Associated right lower lobe atelectasis or pneumonia. Electronically Signed: John Greene MD at 21:39 EDT , Charges/Coding Addendum Addendum: Total time of the visit including total time spent in counseling or coordination of care, (more than 50% of the total time, spent in obtaining medical information from nurses and other ancillary care providers,explaining to the patient about labs, imaging, diagnosis and management of active complex medical conditions), discussion with the ID and clinical update to and decision making, review of labs and imaging is 40 minutes. Visit Charges Inpatient E&M: [id number] [facility] Hosp L3
--- NOTE | 2023-04-06 16:05 | CASEMGMT ---
ALEKSANDR was informed patient's Rosa agreed to Hospice. ALEKSANDR called Augusta at Hospice and made referral as well as emailed information. ALEKSANDR did let Augusta know patient's can be hard to reach. ALEKSANDR then called Rosa and did get a hold of her. ALEKSANDR told Rosa that Hospice will be calling her so she needs to be sure to answer her phone. Arianne Maxwell FRAME BENDER MAYRA
[2023-04-06] MEDS: Insulin Lispro 100 UNIT/ML INSULN.PEN SC (16:15)
--- NOTE | 2023-04-06 16:20 | CASEMGMT ---
SW received a message from Augusta with Hospice. Narinder the liaison from Hospice is going to patient's home right now to meet with the . Arianne Maxwell TILE FINISHER MAYRA
[2023-04-06 16:38] LABS: Bedside Glucose 199 mg/dL (74-106)
--- NOTE | 2023-04-06 18:44 | DCINST_ITS ---
Discharge Instructions Diet Discharge Diet: No restrictions (hospice care, pleasure feeding) Activity Discharge Activity: - (inpatient hospice) Weight Bearing Status: Weight bearing as tolerated Dressing / Incision Call your doctor if you observe: - (inpatient hospice care) Follow Up Care When: IN 2 WEEKS Test Results: Test results from this visit will be discussed in further detail at your follow- up appointment, if applicable. Discharge Plan Admission Admit Date/Time: 03/22/23 19:25 Primary Reason for Your Visit: empyema of right lower lobe, inpatient hospice Attending Provider: Meño Lopez Primary Care Provider: Dusty Almanza Consulting Providers: Meño Lopez; Margarito Peterson; Haleigh Caraballo; Carlos Lozoya; Mateo Frias Discharge Orders/Prescriptions Prescriptions: New sennosides-docusate sodium [Stool Softener-Stimulant Laxat] 8.6-50 mg Tablet 2 tab PO BID PRN PRN (Reason: Constipation) Qty: 0 0RF metronidazole 500 mg Tablet 500 mg PO TID 7 Days Qty: 21 0RF pantoprazole 40 mg Tablet,Delayed Release (Dr/Ec) 40 mg PO DAILY Qty: 0 0RF acetaminophen 325 mg Tablet 650 mg PO Q6H PRN PRN (Reason: Pain 1-10 Or Fever >100.7) Qty: 0 0RF insulin lispro [Humalog KwikPen Insulin] 100 unit/mL Insulin Pen See Protocol subcut ACHS & 3AM Qty: 0 0RF Protocol: 4. Sliding Scale Insulin High-Med Dosing Condition: 150-199 mg/dl = 2 units Condition: 200-259 mg/dl = 4 units Condition: 260-324 mg/dl = 6 units Condition: 325-374 mg/dl = 8 units Condition: 375-409 mg/dl = 10 units Condition: 410-449 mg/dl = 11 units Condition: Greater than 449 call physician Protocol Text: - Use for Total Daily Dose of Insulin 56-80 units - Patient who are insulin resistant or septic HIGH MEDIUM DOSING ALGORITHM levofloxacin 500 mg tablet 500 mg PO Q48H 14 Days Qty: 7 0RF Continued polysaccharide iron complex [Ferrex 150] 150 mg iron capsule 150 mg PO DAILY Rx Instructions: avoid dairy/calcium-containing products and/or antacids for at least 2 hrs before and after dose fluticasone propionate [Allergy Relief (fluticasone)] 50 mcg/actuation spray,suspension 2 spray intranasal DAILY Rx Instructions: administer into each nostril (DME) handicap placcard See Rx Instructions .Route .MEDSUPPLY Qty: 1 0RF Rx Instructions: dx: Debility Lifetime budesonide 1 mg/2 mL suspension for nebulization 1 mg inhalation BID Qty: 60 6RF multivitamin [Daily Multi-Vitamin] Tablet 1 tab PO DAILY carvedilol 3.125 mg tablet 3.125 mg PO BID 30 Days Qty: 60 11RF Discontinued losartan 25 mg tablet 50 mg PO DAILY No Action albuterol sulfate 2.5 mg /3 mL (0.083 %) solution for nebulization 2.5 mg inhalation Q4H PRN (Reason: Sob &/Or Wheezing) Qty: 180 6RF Referrals / Follow Up: Dusty Almanza MD [Primary Care Provider] - Disposition Disposition (needs filled in before D/C Order can be placed): Hospice in Medical Facility
--- NOTE | 2023-04-06 18:57 | PCM.DC.SUM ---
Providers Date of Admission: 03/22/23 Date of Discharge: 04/06/23 Primary Care Physician: Dr. Dusty Almanza MD Consultations 03/22/23 20:48 Consult: Tappet Adjuster / Pulmonary Medicine Routine Consulting Provider: [facility] Reason for Consult: loculated right effusion, parapneumonic. EMERGENT Consult: No Notified: Yes Date Notified: 03/22/23 Time Notified: 19:54 Method of Notification: ED Physician Initiated 03/27/23 08:24 Consult: Nephrology Routine Consulting Provider: Haleigh Caraballo Reason for Consult: CHRIST EMERGENT Consult: No Notified: Yes Date Notified: 03/27/23 Time Notified: 09:38 Method of Notification: Answering Service 04/05/23 15:11 Consult: Infectious Disease Routine Consulting Provider: Mateo Frias Reason for Consult: Suspected empyema, family doesn't CT surgery. conservative antibiotic EMERGENT Consult: No Notified: Yes Date Notified: 04/05/23 Time Notified: 15:11 Method of Notification: Text Reason For Visit: LOCULATED RIGHT EFFUSION, INFECTIONS, DKA? Diagnosis Discharge Diagnosis (1) Pleural effusion, right: Status: Acute Code(s): J90 - Pleural effusion, not elsewhere classified Plan: Likely an empyema loculated. I supect due to chronic aspiration. On broad spectrum abx with pip/tazo. Thoracentesis attempted on the , but was unable to be safely performed due to confusion. Reattempted successfully on the . It was loculated. Preliminary exudative. Repeat chest CT showed persistent moderate-sized loculated right sided pleural effusion worrisome for empyema w an air-fluid loculation laterally and a localatoin w/i the major fissure. I personally reviewed and it appears worse than CT on 03/22. Previous hospitalist Dr. Lozoya discussed with the patient's on 04/03 that UTI appears empyema and it has gotten worse despite being on antibiotics. Transfer to tertiary care for definitive management was discussed to be related by cardiothoracic surgeon for VATS or further decortication/chest tube which would be high perioperative risk seeing his patient general condition and multiple comorbidities. Other option is conservative management with IV antibiotics and if patient gets worse proceed with hospice. Patient and wished him to stay here and she understands the risk of infection getting worse without surgical intervention. Continue IV antibiotics. I told her that the definitive management would be referral to a tertiary facility to be evaluated by cardiothoracic surgery for what could include decortication. The other option would be supportive management with antibiotics and when the patient invariably gets worse then to proceed with hospice. I also explained that if patient does have surgery he would likely have chest tubes and, given his dementia, he may not thrive. I told her I do not know definitively how he would respond to that but without definitive treatment the infection will get worse. She wishes for him to remain here and not be transferred and understands that the risk of the infection will likely get worse without surgical intervention. Plan is to continue with antibiotics and when he does get worse proceed with hospice services. Patient was evaluated tight rope walker last seen on 03/30/2023. Conservative management. Signed off. Recommended to continue IV antibiotics 04/06: Patient was evaluated by ID and sent electronically patient is getting worse and in that he needs thoracic surgery to control the infection as antibiotic alone will not be sufficient. He also talked to tight rope walker Dr. Randolph. I talked to the patient's , Mrs. Rosa Sommers and we all agreed that he is high risk for thoracic surgery including VATS or chest tube. Given the risk she does not want patient to go for surgery but rather selected for hospice care. She is alone by herself and said she will not be able to take care of him therefore preferred inpatient hospice care. CODE STATUS changed to DNR CC and discussed with the charge nurse to proceed for hospice care. Patient discharged to inpatient hospice care. (2) DKA (diabetic ketoacidoses): Status: Acute Code(s): E11.10 - Type 2 diabetes mellitus with ketoacidosis without coma Qualifiers: Diabetes mellitus complication detail: without coma Diabetes mellitus type: type 2 Qualified Code(s): E11.10 - Type 2 diabetes mellitus with ketoacidosis without coma Plan: POA. Was on insulin gtt, but since transitioned off. history of type 2 diabetes Initiated on insulin drip on admission and admitted to the ICU. Hemoglobin A1c of 12.4%. Had issues with hypogylcemia on 04/01, so glargine decreased from 20, to 10 BID. Glargine 10 BID. Continue SSI. (3) Metabolic encephalopathy: Status: Resolved Code(s): G93.41 - Metabolic encephalopathy Plan: Acute metabolic encephalopathy, improving Suspected secondary to acute infection as above with known underlying blindness and difficulty hearing. Unclear if patient has underlying dementia as well. Waxes and wanes, but overall confused. Complicated by profound presbycusis. (4) Atrial fibrillation: Status: Acute Code(s): I48.91 - Unspecified atrial fibrillation Qualifiers: Atrial fibrillation type: paroxysmal Qualified Code(s): I48.0 - Paroxysmal atrial fibrillation Plan: New onset atrial fibrillation Echo shows an EF of 55%. DC heparin gtt. Start apixaban 2.5 BID. Follows with cardiology outpatient, can continue outpatient follow-up for now. Suspect new onset A-fib is primarily secondary to acute infection. Monitor telemetry. 04/05: A-fib with RVR. Started on metoprolol 25 mg twice daily along with metoprolol 5 mg IV every 6 hourly as needed for heart rate more 35-minute (5) CHRIST (acute kidney injury): Status: Acute Code(s): N17.9 - Acute kidney failure, unspecified Plan: CHRIST on CKD stage IIIb. Leveling off. FENa 1.18%. Renal ultrasound negative. PVR Discussed with the boat officer. IV fluid changed from half-normal saline to D5W (6) Debility: Status: Acute Code(s): R53.81 - Other malaise Plan: PT/OT/case management following. Lives at home with his . (7) Hypernatremia: Status: Acute Code(s): E87.0 - Hyperosmolality and hypernatremia Plan: Ongoing Continue 0.45% NS. (8) Dysphagia: Status: Acute Code(s): R13.10 - Dysphagia, unspecified Qualifiers: Dysphagia type: oropharyngeal phase Qualified Code(s): R13.12 - Dysphagia, oropharyngeal phase Plan: Likely acute on chronic ST eval. Recommending Puree textures, thin liquids, small bites and sips, liquid by teaspoon only HOB 90 degrees. Total feed. (9) Empyema: Status: Acute Code(s): J86.9 - Pyothorax without fistula Plan: As described above. No fever but worsening of leukocytes and hypoxia. Sputum culture shows Enterobacter from 03/23. Patient had loculated right pleural effusion since admission and therefore empyema present since admission. High risk for surgery. Patient selected inpatient hospice care. ID changed antibiotic to cefepime and Flagyl. Repeat CT scan 04/02 showed concern for empyema. Patient hypoxia is worsening with increased leukocytes. He requires about 6 L of oxygen now. COVID PCR. As family selected hospice probably will discharge on Levaquin and Flagyl for about 1 to 2 weeks as suggested by ID as comfort measure. Plan Clinical Impression(s) from Imaging Studies Chest X-Ray 03/22/23 16:42 IMPRESSION: No acute pulmonary process Electronically Signed: Nathaniel Sow MD at 17:28 EDT , Brain CT 03/22/23 17:12 IMPRESSION: Chronic involutional changes of the brain. No acute hemorrhage, no interval change Electronically Signed: Nathaniel Sow MD at 17:29 EDT , Chest/Abdomen/Pelvis CT 03/22/23 17:55 IMPRESSION: Chronic interstitial changes in both lung connelly with interstitial edema, and a loculated right pleural effusion with associated atelectasis. 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 Consider short-term follow-up or additional imaging with ultrasound or contrasted study Small bowel ileus Retained stool in the colon Degenerative bony changes Electronically Signed: Nathaniel Sow MD at 19:08 EDT , Chest X-Ray 03/23/23 05:55 IMPRESSION: Right basilar atelectasis versus infiltrate and probable small right pleural effusion. Electronically Signed: Didier Daniel DO at 6:18 EDT , Chest Ultrasound 03/23/23 06:35 IMPRESSION: Not enough fluid for safe thoracentesis of the right pleural space. Electronically Signed: Davie Scott MD at 14:55 EDT , Echocardiogram 03/23/23 07:54 Interpretation Summary The estimated ejection fraction is 55 %. Unable to assess diastolic dysfunction. septal hypokinesis Ordering Physician: Silas Randolph Referring Physician: Berny Almanza Performed By: Jacqueline Kahn, ITZEL, RVT Renal Ultrasound 03/26/23 09:20 IMPRESSION: No hydronephrosis. Bilateral renal cysts. Electronically Signed: Niki Rush MD at 13:26 EDT , Chest X-Ray 04/01/23 13:10 IMPRESSION: Increased size of right pleural effusion with a loculated appearance, possible empyema. Increased focal opacity in the right midlung from pneumonia or loculated effusion. Increased atelectasis or pneumonia of the right lung base. Electronically Signed: Anat Nguyen MD at 13:37 EDT , Thoracentesis Ultrasound 04/01/23 13:44 IMPRESSION: Ultrasound-guided right thoracentesis. Electronically Signed: Davie Scott MD at 14:55 EDT , Chest X-Ray 04/02/23 13:55 IMPRESSION: Status post right thoracentesis. No evidence of pneumothorax. Electronically Signed: Davie Scott MD at 14:35 EDT , Chest CT 04/02/23 16:46 IMPRESSION: Persistent moderate-sized loculated right-sided pleural effusion worrisome for empyema with an air-fluid loculation laterally and a loculation within the major fissure. Associated right lower lobe atelectasis or pneumonia. Electronically Signed: John Greene MD at 21:39 EDT , Medications at Discharge Home Medications polysaccharide iron complex 150 mg iron capsule (Ferrex) 150 mg PO DAILY supplement 06/02/19 fluticasone propionate 50 mcg/actuation nasal spray,suspension (Allergy Relief (fluticasone)) 2 spray intranasal DAILY allergies 04/06/21 handicap placcard #1 ea 04/11/22 carvedilol 3.125 mg tablet 3.125 mg PO BID blood pressure 30 days #60 tabs 06/14/22 albuterol sulfate 2.5 mg/3 mL (0.083 %) solution for nebulization 2.5 mg (3 mL) inhalation Q4H PRN Sob &/Or Wheezing #180 mL 09/25/22 budesonide 1 mg/2 mL suspension for nebulization 1 mg (2 mL) inhalation BID wheezing #60 mL 09/25/22 multivitamin (Daily Multi-Vitamin tablet) 1 tab PO DAILY supplement 03/28/23 acetaminophen 325 mg tablet 650 mg (2 x 325 mg) PO Q6H PRN PRN Pain 1-10 Or Fever >100.7 #0 tabs 04/06/23 insulin lispro 100 unit/mL subcutaneous pen (Humalog KwikPen (U-100) Insulin) See Protocol subcut ACHS & 3AM #0 mL 04/06/23 levofloxacin 500 mg tablet 500 mg PO Q48H 2 weeks #7 tabs 04/06/23 metronidazole 500 mg tablet 500 mg PO TID 1 week #21 tabs 04/06/23 pantoprazole 40 mg tablet,delayed release 40 mg PO DAILY #0 tabs 04/06/23 sennosides 8.6 mg-docusate sodium 50 mg tablet (Stool Softener-Stimulant Laxative) 2 tab PO BID PRN PRN Constipation #0 tabs 04/06/23 Physical Exam Narrative Physical exam findings please see the progress note of the same date. Medical Records Data Medical Nutrition Assessment Dietitian: Malnutrition Criteria Met Start: 03/23/23 10:09 Freq: Status: Active Protocol: Document 04/02/23 11:48 AG (Rec: 04/02/23 11:49 AG [id number]) Nutrition Malnutrition Evidence of Malnutrition Exists Yes Malnutrition (severe): Acute Illness/Injury Evidenced By Suboptimal Energy Intake ( Severe),Weight Loss (Severe) Clinical Problem Biting/Chewing Difficulty Etiology related to debility Signs/Symptoms as evidenced by need for pureed diet Status Active Problem Acute Disease or Injury Related Malnutrition Etiology severe acute on likely chronic malnutrition related to inadequate energy intake Signs/Symptoms as evidenced by PO intake meeting <50% of estimated energy needs, unintentional 2% wt loss < 1 week Status Active Problem Altered Nutrient-Related Laboratory Values Etiology related to CHRIST on CKD stage III, dehydration Signs/Symptoms as evidenced by BUN 46, creatinine 3.02, sodium 150 Status Active Problem Recommendation Dietitian Recommendations/Changes continue regular diet given evidence of malnutrition, texture/consistency per POWER SYSTEM OPERATOR; will continue glucerna and magic cup w/meals Weight / BMI Weight Weight: 165 lb 5.547 oz Body Mass Index (BMI) 28.3 ABG / Lab / Microbiology Data 04/06/23 06:58 04/05/23 05:14 Laboratory: Laboratory Results - last 24 hr 04/05/23 22:07: POC Glucose 213 H 04/06/23 03:03: POC Glucose 122 H 04/06/23 06:28: POC Glucose 85 04/06/23 06:58: WBC 18.6 H, RBC 2.12 L, Hgb 7.2 L, Hct 23.9 L, MCV 112.7 H, MCH 34.0 H, MCHC 30.1 L, RDW Std Deviation 69.4 H, RDW Coeff of Merry 17.2 H, Plt Count 177, MPV 12.3 H, Immature Gran % (Auto) 3.900 H, Neut % (Auto) 60.7, Lymph % (Auto) 11.1 L, [place] % (Auto) 23.6 H, Eos % (Auto) 0.5, Baso % (Auto) 0.2, Absolute Neuts (auto) 11.3 H, Absolute Lymphs (auto) 2.07, Nucleated RBC % 0.5, Differential Comment SCANNED, Diff Path Review May foll, Anisocytosis 2+, Microcytosis 1+, Macrocytosis 1+ 04/06/23 10:26: POC Glucose 115 H 04/06/23 16:14: POC Glucose 199 H Microbiology: Microbiology 04/06/23 12:01 Mucosa - Nasopharyngeal Coronavirus COVID-19 PCR - Final 03/22/23 20:57 Blood Culture (Wb) - Anticubital Right Blood Culture - Final No growth in 5 days. 03/22/23 22:22 Blood Culture (Wb) - Right Forearm Blood Culture - Final No growth in 5 days. 03/23/23 05:25 Sputum, Expectorated/Coughed Gram Stain - Final 03/23/23 05:25 Sputum, Expectorated/Coughed Respiratory Culture - Final Enterobacter cloacae complex 03/22/23 16:40 Urine, Clean Catch Urine Culture - Final Culture exhibits no growth. 03/22/23 16:40 Urine, Clean Catch Legionella Antigen - Final 03/22/23 16:40 Urine, Clean Catch Streptococcus pneumoniae Antigen (M - Final 03/22/23 20:50 Mucosa - Nasopharyngeal Coronavirus COVID-19 PCR - Final 03/22/23 20:50 Mucosa - Nasopharyngeal Respiratory Panel (PCR) - Final 03/22/23 16:59 Nasal Secretion SARS-CoV-2 & FLU Antigen (Rapid) - Final D/C Instructions Discharge Diet: No restrictions (hospice care, pleasure feeding) Weight Bearing Status: Weight bearing as tolerated Call your doctor if you observe: - (inpatient hospice care) When: IN 2 WEEKS Meaningful Use Info Meaningful Use Diagnoses (Choose all that apply): None applicable Discharge Plan Admission Admit Date/Time: 03/22/23 19:25 Primary Reason for Your Visit: empyema of right lower lobe, inpatient hospice Attending Provider: Meño Lopez Primary Care Provider: Dusty Almanza Consulting Providers: Meño Lopez; Margarito Peterson; Haleigh Caraballo; Carlos Lozoya; Mateo Frias Discharge Orders/Prescriptions Prescriptions: New sennosides-docusate sodium [Stool Softener-Stimulant Laxat] 8.6-50 mg Tablet 2 tab PO BID PRN PRN (Reason: Constipation) Qty: 0 0RF metronidazole 500 mg Tablet 500 mg PO TID 7 Days Qty: 21 0RF pantoprazole 40 mg Tablet,Delayed Release (Dr/Ec) 40 mg PO DAILY Qty: 0 0RF acetaminophen 325 mg Tablet 650 mg PO Q6H PRN PRN (Reason: Pain 1-10 Or Fever >100.7) Qty: 0 0RF insulin lispro [Humalog KwikPen Insulin] 100 unit/mL Insulin Pen See Protocol subcut ACHS & 3AM Qty: 0 0RF Protocol: 4. Sliding Scale Insulin High-Med Dosing Condition: 150-199 mg/dl = 2 units Condition: 200-259 mg/dl = 4 units Condition: 260-324 mg/dl = 6 units Condition: 325-374 mg/dl = 8 units Condition: 375-409 mg/dl = 10 units Condition: 410-449 mg/dl = 11 units Condition: Greater than 449 call physician Protocol Text: - Use for Total Daily Dose of Insulin 56-80 units - Patient who are insulin resistant or septic HIGH MEDIUM DOSING ALGORITHM levofloxacin 500 mg tablet 500 mg PO Q48H 14 Days Qty: 7 0RF Continued polysaccharide iron complex [Ferrex 150] 150 mg iron capsule 150 mg PO DAILY Rx Instructions: avoid dairy/calcium-containing products and/or antacids for at least 2 hrs before and after dose fluticasone propionate [Allergy Relief (fluticasone)] 50 mcg/actuation spray,suspension 2 spray intranasal DAILY Rx Instructions: administer into each nostril (DME) handicap placcard See Rx Instructions .Route .MEDSUPPLY Qty: 1 0RF Rx Instructions: dx: Debility Lifetime budesonide 1 mg/2 mL suspension for nebulization 1 mg inhalation BID Qty: 60 6RF multivitamin [Daily Multi-Vitamin] Tablet 1 tab PO DAILY carvedilol 3.125 mg tablet 3.125 mg PO BID 30 Days Qty: 60 11RF Discontinued losartan 25 mg tablet 50 mg PO DAILY No Action albuterol sulfate 2.5 mg /3 mL (0.083 %) solution for nebulization 2.5 mg inhalation Q4H PRN (Reason: Sob &/Or Wheezing) Qty: 180 6RF Referrals / Follow Up: Dusty Almanza MD [Primary Care Provider] - Disposition Disposition (needs filled in before D/C Order can be placed): Hospice in Medical Facility Charges/Coding Visit Charges Inpatient E&M: 31970 Disch Hosp >30min
[2023-04-09 08:40] LABS: Pathologist Review Reviewed
== END 2023-04-06 19:30 | disposition hospice, inpatient (51) | DRG 637 ==
LOC: ED 19:38 → ICU 19:52 → PCU 03-23 12:48
PROVIDERS: Hospitalist; Internal Medicine Critical Care Medicine; Nurse Practitioner Adult Health; Admitting Provider Internal Medicine; Emergency Provider Student in an Organized Health Care Education/Training Program; PCP Family Medicine; Visit Provider Internal Medicine
DX: E11.10 Type 2 diabetes mellitus with ketoacidosis without coma (principal); N17.0 Acute kidney failure with tubular necrosis; J86.9 Pyothorax without fistula; G93.41 Metabolic encephalopathy; E43 Unspecified severe protein-calorie malnutrition; J18.9 Pneumonia, unspecified organism; I24.89 Other forms of acute ischemic heart disease; J96.11 Chronic respiratory failure with hypoxia; J90 Pleural effusion, not elsewhere classified; E87.0 Hyperosmolality and hypernatremia; E11.65 Type 2 diabetes mellitus with hyperglycemia; N18.32 Chronic kidney disease, stage 3b; E11.22 Type 2 diabetes mellitus with diabetic chronic kidney disease; Z79.4 Long term (current) use of insulin; I48.0 Paroxysmal atrial fibrillation; I12.9 Hypertensive chronic kidney disease with stage 1 through stage 4 chronic kidney disease, or unspecified chronic kidney disease; E87.6 Hypokalemia; Z95.2 Presence of prosthetic heart valve; H91.90 Unspecified hearing loss, unspecified ear; R53.81 Other malaise; Z86.16 Personal history of COVID-19; Z51.5 Encounter for palliative care; R13.12 Dysphagia, oropharyngeal phase; Z68.28 Body mass index [BMI] 28.0-28.9, adult
CPT/HCPCS: 32555; 36415; 36600; 70450; 71045; 71046; 71250; 74176; 74230; 76604; 76770; 80048; 80053; 80061; 80202; 81001; 82009; 82550; 82570; 82803; 82945; 82947; 82962; 83036; 83605; 83615; 83735; 83880; 83930; 84100; 84145; 84156; 84157; 84300; 84443; 84484; 85025; 85027; 85610; 85730; 87040; 87070; 87077; 87086; 87186; 87205; 87428; 87449; 87633; 87635; 88108; 88305; 88313; 89050; 92526; 92610; 92611; 93005; 93306; 94640; 94668; 94762; 97110; 97162; 97166; 97530; 97535; 97802; 97803; 99252; 99285; J7030; J7040; J7050; P9612; A4216; G0463; J2405; J2916